=== PATIENT | female | born 1965 | race Caucasian/White ===

== ENCOUNTER 2021-05-22 16:07 | Emergency (ER) | payer BC, SELFPAY ==
[2021-05-22 16:12] VITALS: BP 184/93; PULSE 95; RESP 22; TEMP 37.4; O2SAT 95; BMI 35.9
--- NOTE | 2021-05-22 16:38 | W.ED.SOB ---
Documented by User: Sergei Nieto DO 05/26/21 06:05 HPI - SOB/Dyspnea General: Chief Complaint: Shortness of Breath/Dyspnea Stated Complaint: sob sent PCP Time Seen by Provider: 05/22/21 16:17 Source: patient Mode of arrival: ambulatory Limitations: no limitations History of Present Illness: HPI Narrative: 56-year-old female presents to the emergency room with complaints of shortness of breath and low-grade fever. Last month she had COVID she is currently on Eliquis. She relates she did have a PE related to the COVID. She is still continuing to take it regular has not missed any doses. She has a history of hepatitisCA and has recently developed increasing ascites. On arrival here her oxygen sats 95% on room air. She complaining difficulty breathing she in addition to taking the Eliquis she has been taking large doses of ibuprofen on a regular basis was told by her primary care doctor today not to do that. She denies any chest pain abdominal pain dysuria urgency or frequency. MD elicited complaint: shortness of breath Pertinent past history: other (Hepatitis C, ascites) Onset (ago): day(s) Context: recent illness (COVID) Timing: constant Severity: mild Exacerbating factors: lying flat and exertion Relieving factors: oxygen and rest Known history of: other (Hep C) Associated symptoms: Reports abdominal pain (Chronic) and fever(s); Deny chest congestion, chest pain, cough, diaphoresis, dizziness, extremity pain, hemoptysis, lightheadedness, myalgias, nausea, orthopnea, palpitations, paresthesias, polydipsia, polyuria, rash, sense of impending doom, syncope or vomiting Treatment prior to arrival: none Review of Systems Const: Reports: fever(s); Denies: diaphoresis ENMT: Denies: throat pain, ear or mastoid pain, nasal discharge or nasal congestion Card: Denies: chest pain, palpitations, lightheadedness, syncope or orthopnea Resp: Denies: hemoptysis or chest congestion GI: Reports: abdominal pain (Chronic); Denies: nausea or vomiting : Denies: flank pain, difficulty voiding, dysuria, urinary frequency or urinary urgency Musc: Denies: extremity pain Skin/Breast: Denies: rash or pruritus Neuro: Denies: dizziness Endo: Denies: polyuria or polydipsia PFSH ED PFSH: Medical History (Updated 05/26/21 @ 06:04 by Sergei Nieto DO) COVID-19 Hepatitis C Social History (Updated 05/26/21 @ 06:04 by Sergei Nieto DO) Smoking and tobacco status: current every day smoker Alcohol intake: former Physical Exam Const: GENERAL APPEARANCE: cooperative and comfortable ORIENTATION/CONSCIOUSNESS: Yes awake, Yes oriented to person, Yes oriented to place and Yes oriented to time HENMT: COMMON NORMALS: normocephalic, atraumatic and hearing grossly normal bilaterally HEAD & SCALP: normocephalic and atraumatic Neck/C-Spine: COMMON NORMALS: no JVD Resp: COMMON NORMALS: normal respiratory effort, No retractions, No use of accessory muscles and clear to auscultation bilaterally AUSCULTATION: clear to auscultation bilaterally Cardio: COMMON NORMALS: no JVD, regular rate, regular rhythm and No murmurs present (Cardio) RATE: regular rate RHYTHM: regular rhythm GI: COMMON NORMALS: Soft to palpation INSPECTION: Yes Fluid wave present AUSCULTATION: Yes normoactive bowel sounds PALPATION: Yes Soft to palpation and Yes Tenderness to palpation present (GI) (Mildly tender diffuse nonspecific) PERCUSSION: dullness to percussion and Fluid wave present Extremity: COMMON NORMALS: normal to inspection, capillary refill normal, no clubbing, cyanosis or edema, no calf tenderness and no pedal edema Neuro: SENSORIUM/ORIENTATION: Yes oriented to person, Yes oriented to place and Yes oriented to time Skin: COMMON NORMALS: no rashes or lesions noted GENERAL SKIN EXAM: no rashes or lesions noted Course Vital Signs: Vital signs: Vital Signs Temperature 99.3 F 05/22/21 16:12 Pulse Rate 96 05/22/21 19:36 Respiratory Rate 16 05/22/21 19:36 Blood Pressure 159/78 05/22/21 19:36 Pulse Oximetry 98 05/22/21 19:36 MDM - SOB/Dyspnea Medical Decision Making Care signed out to Dr. Gutiérrez at change of shift. See final notes for diagnosis and disposition. Patient presents here with dyspnea likely from her post COVID looks like she possibly has a pneumonia we will start her on antibiotics. Patient's also has some ascites we will set her up for a paracentesis she has no signs of SBP she is to follow-up with PCP and return if worsening. Lab Data : 05/22/21 18:24 05/22/21 18:24 Labs/Radiology: Radiology Impressions Abdomen Ultrasound 05/22/21 16:51 IMPRESSION: 1. Moderate fatty infiltration of the liver with findings in the liver suspicious for cirrhosis. 2. Small volume ascites with fluid around the liver. Chest X-Ray 05/22/21 16:51 IMPRESSION: 1. Diffuse interstitial and alveolar opacities bilaterally. Findings are suspicious for pneumonia, including atypical or viral pneumonia. Recommend followup chest x-ray to ensure resolution. 2. Incidental/nonacute findings are listed in the report. Forty-two Laboratory Results WBC 5.7 10^3/uL (4.0-10.0) 05/22/21 18:24 RBC 4.24 10^6/uL (4.1-5.3) 05/22/21 18:24 Hgb 11.9 g/dL (11.5-15.3) 05/22/21 18:24 Hct 37.5 % (37.0-47.0) 05/22/21 18:24 MCV 88.4 fl (81-99) 05/22/21 18:24 MCH 28.1 pg (28.0-34.0) 05/22/21 18:24 MCHC 31.7 g/dL (30.0-36.0) 05/22/21 18:24 RDW 16.2 % (12.1-15.1) H 05/22/21 18:24 Plt Count 89 10^3/cmm (130-400) L 05/22/21 18:24 MPV 12.9 fL (7.4-10.4) H 05/22/21 18:24 Neut % (Auto) 56.6 % 05/22/21 18:24 Lymph % (Auto) 27.1 % 05/22/21 18:24 O'Brien % (Auto) 8.5 % 05/22/21 18:24 Eos % (Auto) 6.2 % 05/22/21 18:24 Baso % (Auto) 1.1 % 05/22/21 18:24 Neut # (Auto) 3.22 10^3/uL (1.8-7.7) 05/22/21 18:24 Lymph # (Auto) 1.5 10^3/uL (0.8-4.8) 05/22/21 18:24 O'Brien # (Auto) 0.5 10^3/uL (0.2-0.9) 05/22/21 18:24 Eos # (Auto) 0.4 10^3/uL (0.0-0.8) 05/22/21 18:24 Baso # (Auto) 0.1 10^3/uL (0.0-0.1) 05/22/21 18:24 Nucleated RBC % (auto) 0 % 05/22/21 18:24 Nucleated RBCs # 0.0 /100WBC 05/22/21 18:24 PT 16.20 SECONDS (12.1-14.9) H 05/22/21 18:24 INR 1.27 (0.8-1.2) H 05/22/21 18:24 APTT 33.8 SECONDS (23.9-36.7) 05/22/21 18:24 Sodium 136 mmol/L (136-145) 05/22/21 18:24 Potassium 4.1 mmol/L (3.5-5.1) 05/22/21 18:24 Chloride 106 mmol/L (98-107) 05/22/21 18:24 Carbon Dioxide 24 mmol/L (22-29) 05/22/21 18:24 Anion Gap 10.1 (5-19) 05/22/21 18:24 BUN 8 mg/dL (6-20) 05/22/21 18:24 Creatinine 0.5 mg/dL (0.5-0.9) 05/22/21 18:24 GFR Calculation 128.6 mL/min (90-130) 05/22/21 18:24 Glucose 101 mg/dL (65-115) 05/22/21 18:24 Calculated Osmolality 280 mOsm/kg (285-295) L 05/22/21 18:24 Calcium 8.5 mg/dL (8.5-10.5) 05/22/21 18:24 Total Bilirubin 0.8 mg/dL (0.15-1.2) 05/22/21 18:24 AST 34 U/L (0-32) H 05/22/21 18:24 ALT 16 U/L (0-33) 05/22/21 18:24 Alkaline Phosphatase 241 IU/L (35-105) H 05/22/21 18:24 Ammonia 52 umol/L (11-51) H 05/22/21 18:24 Creatine Kinase 62 U/L (26-192) 05/22/21 18:24 Total Protein 7.7 g/dL (6.6-8.7) 05/22/21 18:24 Albumin 2.7 g/dL (3.5-5.2) L 05/22/21 18:24 Globulin 5.0 g/dL (1.3-4.6) H 05/22/21 18:24 Urine Color Yellow (Yellow) 05/22/21 19:24 Urine Appearance Clear (CLEAR) 05/22/21 19:24 Urine pH 7 (5-7) 05/22/21 19:24 Ur Specific Stuart 1.015 (1.005-1.030) 05/22/21 19:24 Urine Protein Neg (Negative) 05/22/21 19:24 Urine Glucose (UA) Norm (Normal) 05/22/21 19:24 Urine Ketones Negative (Negative) 05/22/21 19:24 Urine Blood 3+ (Negative) H 05/22/21 19:24 Urine Nitrate Negative (Negative) 05/22/21 19:24 Urine Bilirubin Neg (Negative) 05/22/21 19:24 Urine Urobilinogen 8 mg/dL (Negative) H 05/22/21 19:24 Ur Leukocyte Esterase 1+ (Negative) H 05/22/21 19:24 Urine RBC >100 /hpf (0-2) H 05/22/21 19:24 Urine WBC >100 /hpf (0-5) H 05/22/21 19:24 Ur Squamous Epith Cells 25-40 /hpf (0-5) H 05/22/21 19:24 Amorphous Sediment Not Reportable 05/22/21 19:24 Urine Bacteria 4+ /hpf (NONE) H 05/22/21 19:24 Discharge Plan Discharge Patient Disposition: Home Clinical Impression: Ascites, Pneumonia Hepatitis C Qualifiers: Viral hepatitis chronicity: chronic Hepatic coma status: without hepatic coma Qualified Code(s): B18.2 - Chronic viral hepatitis C Condition: Stable Prescriptions: New doxycycline hyclate 100 mg tablet 100 mg PO BID 7 Days Qty: 14 0RF No Action ibuprofen 200 mg Tablet 1,200 mg PO BEDTIME 0RF Eliquis 5 mg tablet 5 mg PO BID 0RF Discharge Orders: Discharge ED (Routine); Ordered 05/22/21 Ordered By: Dionne Gutiérrez Referrals: Estrella Gerard FNP [Primary Care Provider] - 1-3 days Discharge Diet: Advance as tolerated Discharge Activity: Resume usual activity Patient Instructions: Ascites (ED), Pneumonia (ED) Coding Level of Care Code ED Licensed Mental Health Professional for Chg Fwd Exam Comprehensive Documented by User: Dionne Gutiérrez MD 05/22/21 19:26 HPI - SOB/Dyspnea General: Chief Complaint: Shortness of Breath/Dyspnea Stated Complaint: sob sent PCP Time Seen by Provider: 05/22/21 16:17 [facility] ED PFSH: Medical History (Updated 05/26/21 @ 06:04 by Sergei Nieto DO) COVID-19 Hepatitis C Social History (Updated 05/26/21 @ 06:04 by Sergei Nieto DO) Smoking and tobacco status: current every day smoker Alcohol intake: former Course Vital Signs: Vital signs: Vital Signs Temperature 99.3 F 05/22/21 16:12 Pulse Rate 96 05/22/21 19:36 Respiratory Rate 16 05/22/21 19:36 Blood Pressure 159/78 05/22/21 19:36 Pulse Oximetry 98 05/22/21 19:36 MDM - SOB/Dyspnea Medical Decision Making Patient presents here with dyspnea likely from her post COVID looks like she possibly has a pneumonia we will start her on antibiotics. Patient's also has some ascites we will set her up for a paracentesis she has no signs of SBP she is to follow-up with PCP and return if worsening. Lab Data : 05/22/21 18:24 05/22/21 18:24 Labs/Radiology: Radiology Impressions Abdomen Ultrasound 05/22/21 16:51 IMPRESSION: 1. Moderate fatty infiltration of the liver with findings in the liver suspicious for cirrhosis. 2. Small volume ascites with fluid around the liver. Chest X-Ray 05/22/21 16:51 IMPRESSION: 1. Diffuse interstitial and alveolar opacities bilaterally. Findings are suspicious for pneumonia, including atypical or viral pneumonia. Recommend followup chest x-ray to ensure resolution. 2. Incidental/nonacute findings are listed in the report. Forty-two Laboratory Results WBC 5.7 10^3/uL (4.0-10.0) 05/22/21 18:24 RBC 4.24 10^6/uL (4.1-5.3) 05/22/21 18:24 Hgb 11.9 g/dL (11.5-15.3) 05/22/21 18:24 Hct 37.5 % (37.0-47.0) 05/22/21 18:24 MCV 88.4 fl (81-99) 05/22/21 18:24 MCH 28.1 pg (28.0-34.0) 05/22/21 18:24 MCHC 31.7 g/dL (30.0-36.0) 05/22/21 18:24 RDW 16.2 % (12.1-15.1) H 05/22/21 18:24 Plt Count 89 10^3/cmm (130-400) L 05/22/21 18:24 MPV 12.9 fL (7.4-10.4) H 05/22/21 18:24 Neut % (Auto) 56.6 % 05/22/21 18:24 Lymph % (Auto) 27.1 % 05/22/21 18:24 O'Brien % (Auto) 8.5 % 05/22/21 18:24 Eos % (Auto) 6.2 % 05/22/21 18:24 Baso % (Auto) 1.1 % 05/22/21 18:24 Neut # (Auto) 3.22 10^3/uL (1.8-7.7) 05/22/21 18:24 Lymph # (Auto) 1.5 10^3/uL (0.8-4.8) 05/22/21 18:24 O'Brien # (Auto) 0.5 10^3/uL (0.2-0.9) 05/22/21 18:24 Eos # (Auto) 0.4 10^3/uL (0.0-0.8) 05/22/21 18:24 Baso # (Auto) 0.1 10^3/uL (0.0-0.1) 05/22/21 18:24 Nucleated RBC % (auto) 0 % 05/22/21 18:24 Nucleated RBCs # 0.0 /100WBC 05/22/21 18:24 PT 16.20 SECONDS (12.1-14.9) H 05/22/21 18:24 INR 1.27 (0.8-1.2) H 05/22/21 18:24 APTT 33.8 SECONDS (23.9-36.7) 05/22/21 18:24 Sodium 136 mmol/L (136-145) 05/22/21 18:24 Potassium 4.1 mmol/L (3.5-5.1) 05/22/21 18:24 Chloride 106 mmol/L (98-107) 05/22/21 18:24 Carbon Dioxide 24 mmol/L (22-29) 05/22/21 18:24 Anion Gap 10.1 (5-19) 05/22/21 18:24 BUN 8 mg/dL (6-20) 05/22/21 18:24 Creatinine 0.5 mg/dL (0.5-0.9) 05/22/21 18:24 GFR Calculation 128.6 mL/min (90-130) 05/22/21 18:24 Glucose 101 mg/dL (65-115) 05/22/21 18:24 Calculated Osmolality 280 mOsm/kg (285-295) L 05/22/21 18:24 Calcium 8.5 mg/dL (8.5-10.5) 05/22/21 18:24 Total Bilirubin 0.8 mg/dL (0.15-1.2) 05/22/21 18:24 AST 34 U/L (0-32) H 05/22/21 18:24 ALT 16 U/L (0-33) 05/22/21 18:24 Alkaline Phosphatase 241 IU/L (35-105) H 05/22/21 18:24 Ammonia 52 umol/L (11-51) H 05/22/21 18:24 Creatine Kinase 62 U/L (26-192) 05/22/21 18:24 Total Protein 7.7 g/dL (6.6-8.7) 05/22/21 18:24 Albumin 2.7 g/dL (3.5-5.2) L 05/22/21 18:24 Globulin 5.0 g/dL (1.3-4.6) H 05/22/21 18:24 Urine Color Yellow (Yellow) 05/22/21 19:24 Urine Appearance Clear (CLEAR) 05/22/21 19:24 Urine pH 7 (5-7) 05/22/21 19:24 Ur Specific Stuart 1.015 (1.005-1.030) 05/22/21 19:24 Urine Protein Neg (Negative) 05/22/21 19:24 Urine Glucose (UA) Norm (Normal) 05/22/21 19:24 Urine Ketones Negative (Negative) 05/22/21 19:24 Urine Blood 3+ (Negative) H 05/22/21 19:24 Urine Nitrate Negative (Negative) 05/22/21 19:24 Urine Bilirubin Neg (Negative) 05/22/21 19:24 Urine Urobilinogen 8 mg/dL (Negative) H 05/22/21 19:24 Ur Leukocyte Esterase 1+ (Negative) H 05/22/21 19:24 Urine RBC >100 /hpf (0-2) H 05/22/21 19:24 Urine WBC >100 /hpf (0-5) H 05/22/21 19:24 Ur Squamous Epith Cells 25-40 /hpf (0-5) H 05/22/21 19:24 Amorphous Sediment Not Reportable 05/22/21 19:24 Urine Bacteria 4+ /hpf (NONE) H 05/22/21 19:24 Discharge Plan Discharge Patient Disposition: Home Clinical Impression: Ascites, Pneumonia Hepatitis C Qualifiers: Viral hepatitis chronicity: chronic Hepatic coma status: without hepatic coma Qualified Code(s): B18.2 - Chronic viral hepatitis C Condition: Stable Prescriptions: New doxycycline hyclate 100 mg tablet 100 mg PO BID 7 Days Qty: 14 0RF No Action ibuprofen 200 mg Tablet 1,200 mg PO BEDTIME 0RF Eliquis 5 mg tablet 5 mg PO BID 0RF Discharge Orders: Discharge ED (Routine); Ordered 05/22/21 Ordered By: Dionne Gutiérrez Referrals: Estrella Gerard FNP [Primary Care Provider] - 1-3 days Discharge Diet: Advance as tolerated Discharge Activity: Resume usual activity Patient Instructions: Ascites (ED), Pneumonia (ED) Coding Level of Care Code ED Licensed Mental Health Professional for Vera Fwd Exam Comprehensive
--- NOTE | 2021-05-22 16:51 | USR_ITS ---
PROCEDURE INFORMATION: Exam: US Abdomen; Limited Exam date and time: 05/22/2021 4:51 PM Age: 56 years old Clinical indication: Abdominal tenderness; Additional info: Liver/ascites TECHNIQUE: Imaging protocol: US abdomen. Real time ultrasound with image documentation. Limited exam focused on the region of clinical interest. COMPARISON: No relevant prior studies available. FINDINGS: Liver: Nodular contour of the liver. Moderately increased echotexture in the liver, consistent with moderate fatty infiltration. Liver measures 14.3 cm in length. Portal venous: Hepatopetal flow in the portal vein. Intraperitoneal space: Small volume ascites with fluid around the liver. There is no ascites visualized in the remainder of the abdomen. US/US abdomen limited [id number] IMPRESSION: 1. Moderate fatty infiltration of the liver with findings in the liver suspicious for cirrhosis. 2. Small volume ascites with fluid around the liver.
--- NOTE | 2021-05-22 16:51 | ECG_ITS ---
[facility] Test Date: 2021-05-22 Pat Name: Sandy Enrandez Department: Room: Gender: Female Customer Service Manager: : 1965 Requested By: Sergei Dorsey Order Number: [id number] Dano MD: Felix King M.D. Measurements Intervals [place] Rate: 90 P: 54 KS: 152 QRS: 22 QRSD: 73 T: 38 QT: 342 QTc: 420 Interpretive Statements SINUS RHYTHM No previous ECG available for comparison Electronically Signed On 05-22-2021 20:45:39 CUSTOMER RESOURCE SPECIALIST by Felix King M.D. [id number]
--- NOTE | 2021-05-22 16:51 | XRR_ITS ---
PROCEDURE INFORMATION: Exam: XR Chest Exam date and time: 05/22/2021 4:51 PM Age: 56 years old Clinical indication: Cough and shortness of breath; Additional info: Dyspnea/cough TECHNIQUE: Imaging protocol: XR of the chest. Views: 1 view. COMPARISON: No relevant prior studies available. FINDINGS: Lungs: Diffuse interstitial and alveolar opacities bilaterally. Findings are suspicious for pneumonia, including atypical or viral pneumonia. Pleural spaces: No pleural effusion. No pneumothorax. Heart/Mediastinum: The cardiac silhouette is mildly enlarged. Mediastinal contours are unremarkable. Bones/joints: Unremarkable for age. XR/XR chest 1V portable [id number] IMPRESSION: 1. Diffuse interstitial and alveolar opacities bilaterally. Findings are suspicious for pneumonia, including atypical or viral pneumonia. Recommend followup chest x-ray to ensure resolution. 2. Incidental/nonacute findings are listed in the report. Forty-two
[2021-05-22 18:44] LABS: INR 1.27 (0.8-1.2); Partial Thromboplastin Time 33.8 SECONDS (23.9-36.7)
[2021-05-22 19:04] VITALS: BP 159/84; PULSE 91; RESP 18; O2SAT 92
[2021-05-22 19:04] LABS: Alanine Aminotransferase 16 U/L (0-33); Albumin Level 2.7 g/dL (3.5-5.2); Alkaline Phosphatase 241 IU/L (35-105); Aspartate Amino Transferase 34 U/L (0-32); Blood Urea Nitrogen 8 mg/dL (6-20); Calcium 8.5 mg/dL (8.5-10.5); Carbon Dioxide 24 mmol/L (22-29); Chloride 106 mmol/L (98-107); Creatine Phosphokinase 62 U/L (26-192); Creatinine Clr Calc Pharmacy 149.0233; Glomerular Filtration Rate 128.6 mL/min (90-130); Glucose 101 mg/dL (65-115); Osmolality Calculated 280 mOsm/kg (285-295); Sodium 136 mmol/L (136-145); Total Bilirubin 0.8 mg/dL (0.15-1.2); Total Protein 7.7 g/dL (6.6-8.7)
[2021-05-22 19:06] LABS: Ammonia 52 umol/L (11-51)
[2021-05-22 19:09] LABS: Anion Gap 10.1 (5-19); Potassium 4.1 mmol/L (3.5-5.1)
[2021-05-22 19:13] LABS: Basophils # 0.1 10^3/uL (0.0-0.1); Basophils % 1.1 %; Eosinophils # 0.4 10^3/uL (0.0-0.8); Eosinophils % 6.2 %; Hematocrit 37.5 % (37.0-47.0); Hemoglobin 11.9 g/dL (11.5-15.3); Lymphocytes # 1.5 10^3/uL (0.8-4.8); Lymphocytes % 27.1 %; Mean Corpuscular HGB Conc 31.7 g/dL (30.0-36.0); Mean Corpuscular Hemoglobin 28.1 pg (28.0-34.0); Mean Corpuscular Volume 88.4 fl (81-99); Mean Platelet Volume 12.9 fL (7.4-10.4); Monocytes # 0.5 10^3/uL (0.2-0.9); Monocytes % 8.5 %; Neutrophils # 3.22 10^3/uL (1.8-7.7); Neutrophils % 56.6 %; Nucleated Red Blood Cells % 0 %; Platelet Count 89 10^3/cmm (130-400); Red Blood Count 4.24 10^6/uL (4.1-5.3); Red Cell Distribution Width 16.2 % (12.1-15.1); White Blood Count 5.7 10^3/uL (4.0-10.0)
[2021-05-22 19:36] VITALS: BP 159/78; PULSE 96; RESP 16; O2SAT 98
[2021-05-22 20:20] LABS: Glucose Urine UA Norm (Normal); Ketones Urine Negative (Negative); Protein Urine Neg (Negative); Specific Gravity, Urine 1.015 (1.005-1.030); Urine Appearance Clear (CLEAR); Urine Color Yellow (Yellow); pH Urine 7 (5-7)
[2021-05-22 20:21] LABS: Add Urine Microscopic? YES; Bilirubin Urine Neg (Negative); Blood Urine 3+ (Negative); Leukocyte Esterase Urine 1+ (Negative); Nitrate Urine Negative (Negative); Urobilinogen Urine 8 mg/dL (Negative)
[2021-05-22 20:28] LABS: Add Urine Culture? No; Bacteria Urine 4+ /hpf; RBC Urine >100 /hpf (0-2); Squamous Epithelial Cell Urine 25-40 /hpf (0-5); WBC Urine >100 /hpf (0-5)
--- NOTE | 2021-05-23 12:49 | DCPLANNER ---
Addendum entered by Tali Estrada 05/30/21 13:52: Patient had an US guided paracentesis scheduled for 05.28.21 - patient did attend appointment. Original Note: manager case management had message to schedule an outpatient US guided paracentesis. manager case management faxed signed order to centralized scheduling, who will call patient with appointment information.
== END 2021-05-22 19:39 | disposition home or self-care (01) ==
PROVIDERS: Family Medicine; Emergency Provider Emergency Medicine; PCP Nurse Practitioner Family
DX: B18.2 Chronic viral hepatitis C (principal); R18.8 Other ascites; J18.9 Pneumonia, unspecified organism; Z79.01 Long term (current) use of anticoagulants; F17.210 Nicotine dependence, cigarettes, uncomplicated
CPT/HCPCS: 71045; 76705; 80053; 81001; 82140; 82550; 85025; 85610; 85730; 87040; 93005; 99283

== ENCOUNTER 2021-05-28 10:10 | Day surgery (SDC) | payer OTHER, BC, MEDICAID, SELFPAY ==
[2021-05-27 10:30] VITALS: BMI 37.5
--- NOTE | 2021-05-28 10:41 | US_ITS ---
WS: [id number] ULTRASOUND ABDOMEN LIMITED CLINICAL INFORMATION: ascites COMPARISON: May 22, 2021 FINDINGS: Ascites: Mild abdominal ascites today. Insufficient fluid for paracentesis. US/US abdomen limited [id number] IMPRESSION: Insufficient fluid for paracentesis.
[2021-05-28 10:45] VITALS: BP 145/81; PULSE 89; RESP 20; TEMP 37; O2SAT 92
== END 2021-05-28 12:00 | disposition home or self-care (01) ==
PROVIDERS: Radiology Neuroradiology; PCP Nurse Practitioner Family; Visit Provider Emergency Medicine
DX: R18.8 Other ascites (principal)
CPT/HCPCS: 76705

== ENCOUNTER 2022-05-29 11:47 | Emergency (ER) | payer BC, MEDICAID, SELFPAY ==
[2022-05-29 11:54] VITALS: BMI 31.6
[2022-05-29 11:59] VITALS: BP 145/78; PULSE 71; RESP 18; TEMP 36.5; O2SAT 94
--- NOTE | 2022-05-29 14:59 | ED_ITS ---
HPI - General Adult General: Chief complaint: General Medical Stated complaint: face and leg swelling Time Seen by Provider: 05/29/22 13:56 History of Present Illness: Ms Ernandez is a 57-year-old lady with history of recurrent cellulitis, hepatitis C presenting to the emergency department due to concern over facial cellulitis. She reports chronic leg cellulitis of the right lower extremity most recently started on Keflex. Starting last night she noticed a small abrasion or purple on the left side of her face which she picked at. Subsequently she developed facial swelling and redness. She notes blurry vision and pain behind the left eye. Intensity symptoms is moderate. Course has worsened. No other specific changes in health, exacerbating, or alleviating factors identified. Onset (ago): day(s) Location: face Severity: moderate Quality: other Pain Consistency: constant Relieving factors: none Exacerbating factors: none Associated symptoms: Reports headache(s), malaise and other Review of Systems General: Reports: 10 or more systems reviewed and unremarkable except in HPI and below Const: Reports: malaise Neuro: Reports: headache(s) PFSH ED PFSH: Medical History COVID-19 Hepatitis C Family History Mother Hypertension Family/Other Hypertension Denies family history of Diabetes CAD (coronary artery disease) Cancer Social History Smoking and tobacco status: never smoked Alcohol intake: former Adopted: No Lives independently: Yes Household members: family Housing: House Physical Exam Const: COMMON NORMALS: alert GENERAL APPEARANCE: cooperative and well dev eloped HENMT: COMMON NORMALS: normocephalic and atraumatic HEAD & SCALP: normocephalic and atraumatic THROAT: posterior oropharynx normal OTHER: Facial cellulitis Eye: COMMON NORMALS: Equal, round and reactive pupils present, EOMs intact bilaterally, conjunctivae normal and normal visual mina by confrontation CONJUNCTIVA: Yes conjunctivae normal SCLERA: sclerae normal PUPIL: Yes Equal, round and reactive pupils present Neck/C-Spine: COMMON NORMALS: supple GENERAL: Yes trachea midline Resp: COMMON NORMALS: normal respiratory effort EFFORT & INSPECTION: Yes able to speak in complete sentences Cardio: COMMON NORMALS: regular rate and regular rhythm RATE: regular rate RHYTHM: regular rhythm GI: COMMON NORMALS: Soft to palpation PALPATION: Yes Soft to palpation and No Tenderness to palpation present (GI) PERCUSSION: normal to percussion Extremity: NARRATIVE EXTREMITY EXAM: Bilateral lower extremities with woody vascular changes, mildly increased swell ing on the right compared to left, deep skin ulceration/wound GENERAL: Yes normal exam except as noted and No edema Neuro: COMMON NORMALS: moves all extremities SENSORIUM/ORIENTATION: Yes alert and No Orientation impaired Psych: COMMON NORMALS: mental status grossly normal and Normal thought process present THOUGHT PROCESS: Normal thought process present Course Vital Signs: Vital signs: Vital Signs Temperature 97.7 F 05/29/22 11:59 Pulse Rate 71 05/29/22 11:59 Respiratory Rate 18 05/29/22 11:59 Blood Pressure 145/78 05/29/22 11:59 Pulse Oximetry 94 05/29/22 11:59 Oxygen Delivery Me thod 05/29/22 11:59 [facility] - General Adult Medical Decision Making 57-year-old lady presenting with concern over facial cellulitis. She had is chronic and treated with Keflex for leg cellulitis despite recurrence. Bilateral nose and inferior periorbital regions with mild extension to chin more prominent on the left. No evidence of airway compromise. No vesicular or desquamating lesions. Labs with no significant hematologic or metabolic abnormalities compared to underlying medical conditions. ESR is mildly elevated and states CRP. Incidental lab findings discussed. CT imaging negative for drainable fluid collection or deep tissue infection. Incidental findings noted, no increasing respiratory symptoms. Given nonhealin g/recurrent wounds ultrasound imaging obtained. No stenosis or occlusion, no DVT, x-ray unremarkable for bony abnormality. Most likely etiology of patient's symptoms is cellulitis. Given laboratory and exam findings I believe outpatient management with change in antibiotics is appropriate. Strict return precautions given. The results of ED evaluation were discussed with the patient including prescriptions and/or symptomatic cares (if applicable) including appropriate and responsible use, followup plan, and return precautions. The patient verbalized understanding and felt safe for discharge. Medical Records I reviewed the patient's medical records. Lab Data I reviewed the patient's lab results. 05/29/22 16:37 05/29/22 15:[address] 05/29/22 15:00 IMPRESSION: Soft tissue swelling in the bilateral nose and inferior periorbital regions extending to the pre maxillary region, with minimal extension to the chin. This is consistent with history of cellulitis. No drainable abscess or fluid collection. Neck CT 05/29/22 15:00 IMPRESSION: 1. Soft tissue swelling of the nose, bilateral inferior periorbital and pre maxillary regions, and minimal soft tissue swelling extending inferiorly in the left neck. These changes suggest cellulitis. No drainable abscess or fluid collection. 2. Minimally prominent upper cervical chain lymph nodes are likely reactive. 3. Patchy ground-glass densities in the lung apices. Correlate for pneumonia versus pulmonary vascular congestion. Duplex Scan Lower Extremity Artery 05/29/22 17:24 IMPRESSION: No stenosis or occlusion. Tibia/Fibula X-Ray 05/29/22 17:24 IMPRESSION: Diffuse right lower extremity subcutaneous soft tissue edema. No acute osseous injury. ADDENDUM: 05/29/22 [id number] Addendum: Additionally there appears to be a soft tissue ulcer measuring 1.9 cm anteriorly in the right lower leg. Correlate with exam findings. Venous Duplex 05/29/22 17:24 IMPRESSION: No evidence of deep vein thrombosis. Laboratory Results WBC 5.5 10^3/uL (4.0-10.0) 05/29/22 16:37 RBC 4.34 10^6/uL (4.1-5.3) 05/29/22 16:37 Hgb 12.2 g/dL (11.5-15.3) 05/29/22 16:37 Hct 38.7 % (37.0-47.0) 05/29/22 16:37 MCV 89.2 fl (81-99) 05/29/22 16:37 MCH 28.1 pg (28.0-34.0) 05/29/22 16:37 MCHC 31.5 g/dL (30.0-36.0) 05/29/22 16:37 RDW 14.6 % (12.1-15.1) 05/29/22 16:37 Plt Count 113 10^3/cmm (130-400) L 05/29/22 16:37 MPV 12.3 fL (7.4-10.4) H 05/29/22 16:37 Neut % (Auto) 75.1 % 05/29/22 16:37 Lymph % (Auto) 14.6 % 05/29/22 16:37 Vernon % (Auto) 7.9 % 05/29/22 16:37 Eos % (Auto) 1.6 % 05/29/22 16:37 Baso % (Auto) 0.4 % 05/29/22 16:37 Neut # (Auto) 4.11 10^3/uL (1.8-7.7) 05/29/22 16:37 Lymph # (Auto) 0.8 10^3/uL (0.8-4.8) 05/29/22 16:37 Vernon # (Auto) 0.4 10^3/uL (0.2-0.9) 05/29/22 16:37 Eos # (Auto) 0.1 10^3/uL (0.0-0.8) 05/29/22 16:37 Baso # (Auto) 0.0 10^3/uL (0.0-0.1) 05/29/22 16:37 Nucleated RBC % (auto) 0 % 05/29/22 16:37 Nucleated RBCs # 0.0 /100WBC 05/29/22 16:37 ESR 18 mm/hr (0-15) H 05/29/22 16:37 Sodium 136 mmol/L (136-145) 05/29/22 15:16 Potassium 3.7 mmol/L (3.5-5.1) 05/29/22 15:16 Chloride 105 mmol/L (98-107) 05/29/22 15:16 Carbon Dioxide 24 mmol/L (22-29) 05/29/22 15:16 Anion Gap 10.7 (5-19) 05/29/22 15:16 BUN 9 mg/dL (6-20) 05/29/22 15:16 Creatinine 0.5 mg/dL (0.5-0.9) 05/29/22 15:16 GFR Calculation 128.1 mL/min (90-130) 05/29/22 15:16 Glucose 107 mg/dL (65-115) 05/29/22 15:16 Calculated Osmolality 281 mOsm/kg (285-295) L 05/29/22 15:16 Lactate 1.0 mmol/L (0.5-2.2) 05/29/22 16:45 Calcium 8.7 mg/dL (8.5-10.5) 05/29/22 15:16 Total Bilirubin 1.6 mg/dL (0.15-1.2) H 05/29/22 15:16 AST 103 U/L (0-32) H 05/29/22 15:16 ALT 60 U/L (0-33) H 05/29/22 15:16 Alkaline Phosphatase 163 U/L (35-105) H 05/29/22 15:16 C-Reactive Protein 9.5 mg/L (0.0-4.9) H 05/29/22 15:16 Total Protein 6.7 g/dL (6.6-8.7) 05/29/22 15:16 Albumin 2.4 g/dL (3.5-5.2) L 05/29/22 15:16 Globulin 4.3 g/dL (1.3-4.6) 05/29/22 15:16 Discharge Plan Discharge Patient Disposition: Home Clinical Impression: Cellulitis of leg, right, Cellulitis of face, Abnormal bilirubin test, Thrombocytopenia, Transaminitis Condition: Stable Prescriptions: No Action omeprazole 40 mg capsule,delayed release(DR/EC) 40 mg PO DAILY Qty: 30 0RF albuterol sulfate [Ventolin HFA] 90 mcg/actuation HFA aerosol inhaler 2 puff inhalation Q6H PRN budesonide-formoterol [Symbicort] 80-4.5 mcg/actuation HFA aerosol inhaler 1 inh inhalation BID guaifenesin [Mucinex] 600 mg tablet extended release 12hr 600 mg PO BID Rx Instructions: for 5 dyas cephalexin 500 mg capsule 500 mg PO Q8H 7 Days Qty: 21 0RF Eliquis 5 mg tablet 5 mg PO BID Discharge Orders: Discharge ED (Routine); Ordered 05/29/22 Ordered By: Steven Marcano Referrals: Estrella Gerard FNP [Primary Care Provider] - Discharge Diet: Usual diet Discharge Activity: Resume usual activity Patient Instructions: Cellulitis (ED) Activity Restrictions/Additional Instructions: Thank you for visiting the emergency department. You were seen and evaluated for facial and leg redness and pain as well as swelling. The most likely cause of your symptoms is cellulitis. Based on laboratory studies I believe that it is reasonable to increase antibiotics and treat in the outpatient setting. I recommend close follow-up with your primary care provider. Establish with a primary care provider if you do not currently have one. Return to the emergency department for worsening symptoms, uncontrolled pain, difficulty breathing, involvement of mucous membranes, failure to improve, or anything else that you are concerned about and feel needs emergency department evaluation. Coding Level of Care Code ED [employer] for [facility]
--- NOTE | 2022-05-29 15:00 | CTR_ITS ---
PROCEDURE INFORMATION: Exam: CT Neck With Contrast Exam date and time: 05/29/2022 4:48 PM Age: 57 years old Clinical indication: Cellulitis of neck; Additional info: Cellulitis, neck pain, eval deep infection TECHNIQUE: Imaging protocol: Computed tomography of the neck with contrast. Radiation optimization: All CT scans at this facility use at least one of these dose optimization techniques: automated exposure control; mA and/or kV adjustment per patient size (includes targeted exams where dose is matched to clinical indication); or iterative reconstruction. Contrast material: OMNIPAQUE 350; Contrast volume: 65 ml; Contrast route: INTRAVENOUS (IV); REPORTING DATA: Count of CT and Cardiac NM exams in prior 12 months: This patient has received [address] and 0 known cardiac nuclear medicine studies in the 12 months prior to the current study. COMPARISON: CR (CHEST, ) 05/22/2021 4:56 PM RADIATION DOSE METRICS: Total DLP (mGy-cm): 267.4 FINDINGS: Mastoid air cells: Small left mastoid effusion. Pharynx: Unremarkable. No significant tonsillar enlargement. Larynx: Unremarkable. Epiglottis is normal. Prevertebral and retropharyngeal spaces: Unremarkable. Salivary glands: Normal. Glands are normal in size. Thyroid: Normal. No enlarged or calcified nodules. Lymph nodes: Mildly enlarged upper cervical chain nodes are present which are likely reactive. For example there is a left level 1 lymph node measuring 8 mm short axis on series 4, image 56. Trachea: Visualized trachea is unremarkable. Lungs: Patchy ground-glass densities in the lung apices. Bones/joints: The maxilla is edentulous. There is dental disease in the mandible. Soft tissues: Soft tissue swelling is seen in the nose, inferior periorbital region, and the bilateral pre maxillary region. There is also soft tissue swelling in the region of the chin with minimal thickening of the bilateral platysma muscle. Minimal subcutaneous soft tissue stranding extends inferiorly in the left neck to the level of the thyroid cartilage and extends to the carotid sheath. No drainable abscess or fluid collection. CT/CT neck w con* [id number] IMPRESSION: 1. Soft tissue swelling of the nose, bilateral inferior periorbital and pre maxillary regions, and minimal soft tissue swelling extending inferiorly in the left neck. These changes suggest cellulitis. No drainable abscess or fluid collection. 2. Minimally prominent upper cervical chain lymph nodes are likely reactive. 3. Patchy ground-glass densities in the lung apices. Correlate for pneumonia versus pulmonary vascular congestion.
--- NOTE | 2022-05-29 15:00 | CTR_ITS ---
PROCEDURE INFORMATION: Exam: CT Maxillofacial With Contrast Exam date and time: 05/29/2022 4:48 PM Age: 57 years old Clinical indication: Other: Facial swelling and reddness; Additional info: Facial cellulitis, eval deep infection, eye pain l>r, nasal bridge and inferior eye region TECHNIQUE: Imaging protocol: Computed tomography of the face with contrast. Radiation optimization: All CT scans at this facility use at least one of these dose optimization techniques: automated exposure control; mA and/or kV adjustment per patient size (includes targeted exams where dose is matched to clinical indication); or iterative reconstruction. Contrast material: OMNI 350; Contrast volume: 45 ml; Contrast route: INTRAVENOUS (IV); REPORTING DATA: Count of CT and Cardiac NM exams in prior 12 months: This patient has received [address] and 0 known cardiac nuclear medicine studies in the 12 months prior to the current study. COMPARISON: CT neck w con* [id number] 05/29/2022 4:48 PM RADIATION DOSE METRICS: Total DLP (mGy-cm): 605.9 FINDINGS: Orbital cavities: Orbits are normal. Globes are unremarkable. Bones/joints: No acute fracture. Paranasal sinuses: Normal. No air-fluid levels. Mastoid air cells: Small left mastoid tip effusion. Lymph nodes: Minimally prominent upper cervical chain lymph nodes are likely reactive similar to the comparison CT neck. Soft tissues: Bilateral nasal inferior periorbital and pre maxillary region soft tissue swelling is again visualized. There is minimal soft tissue swelling in the chin with minimally thickened bilateral platysma muscle. No evidence of a drainable abscess or fluid collection. Dental: Dental disease is present in the mandible with edentulous maxilla. CT/CT facial bones w con [id number] IMPRESSION: Soft tissue swelling in the bilateral nose and inferior periorbital regions extending to the pre maxillary region, with minimal extension to the chin. This is consistent with history of cellulitis. No drainable abscess or fluid collection.
[2022-05-29 15:55] LABS: Alanine Aminotransferase 60 U/L (0-33); Albumin Level 2.4 g/dL (3.5-5.2); Alkaline Phosphatase 163 U/L (35-105); Aspartate Amino Transferase 103 U/L (0-32); Blood Urea Nitrogen 9 mg/dL (6-20); C Reactive Protein 9.5 mg/L (0.0-4.9); Calcium 8.7 mg/dL (8.5-10.5); Carbon Dioxide 24 mmol/L (22-29); Chloride 105 mmol/L (98-107); Globulin 4.3 g/dL (1.3-4.6); Glomerular Filtration Rate 128.1 mL/min (90-130); Glucose 107 mg/dL (65-115); Osmolality Calculated 281 mOsm/kg (285-295); Sodium 136 mmol/L (136-145); Total Bilirubin 1.6 mg/dL (0.15-1.2); Total Protein 6.7 g/dL (6.6-8.7)
[2022-05-29 15:59] LABS: Anion Gap 10.7 (5-19); Potassium 3.7 mmol/L (3.5-5.1)
[2022-05-29] MEDS: iohexol 350 mg/mL 500 mL Btl (per mL) IV (16:00)
[2022-05-29 16:48] LABS: Basophils % 0.4 %; Eosinophils # 0.1 10^3/uL (0.0-0.8); Eosinophils % 1.6 %; Hematocrit 38.7 % (37.0-47.0); Hemoglobin 12.2 g/dL (11.5-15.3); Lymphocytes # 0.8 10^3/uL (0.8-4.8); Lymphocytes % 14.6 %; Mean Corpuscular HGB Conc 31.5 g/dL (30.0-36.0); Mean Corpuscular Hemoglobin 28.1 pg (28.0-34.0); Mean Corpuscular Volume 89.2 fl (81-99); Mean Platelet Volume 12.3 fL (7.4-10.4); Monocytes # 0.4 10^3/uL (0.2-0.9); Monocytes % 7.9 %; Neutrophils # 4.11 10^3/uL (1.8-7.7); Neutrophils % 75.1 %; Nucleated Red Blood Cells % 0 %; Platelet Count 113 10^3/cmm (130-400); Red Blood Count 4.34 10^6/uL (4.1-5.3); Red Cell Distribution Width 14.6 % (12.1-15.1); White Blood Count 5.5 10^3/uL (4.0-10.0)
[2022-05-29 17:11] LABS: Erythrocyte Sedimentation Rate 18 mm/hr (0-15)
--- NOTE | 2022-05-29 17:24 | USR_ITS ---
PROCEDURE INFORMATION: Exam: US Duplex Right Lower Extremity Veins, Limited Exam date and time: 05/29/2022 5:39 PM Age: 57 years old Clinical indication: Edema, localized; Lower extremity, right; Additional info: Lle pain, swelling TECHNIQUE: Imaging protocol: Real-time duplex ultrasound of the right extremity with 2-D nuno scale, color Doppler flow and spectral waveform analysis including responses to compression and other maneuvers (when performed) with image documentation. Limited exam was focused on the right lower extremity veins. COMPARISON: CR XR tibia fibula RT 2V [id number] 05/29/2022 5:35 PM FINDINGS: Right deep veins: Unremarkable. The common femoral, femoral, proximal profunda femoral and popliteal veins are patent without thrombus. Normal Doppler waveforms. Normal compressibility and/or augmentation response. Right superficial veins: Unremarkable. Saphenofemoral junction is patent without thrombus. Soft tissues: Subcutaneous soft tissue edema noted. US/[place] [id number] IMPRESSION: No evidence of deep vein thrombosis.
--- NOTE | 2022-05-29 17:24 | USR_ITS ---
PROCEDURE INFORMATION: Exam: US Duplex Right Lower Extremity Arteries Or Arterial Bypass Grafts Exam date and time: 05/29/2022 5:47 PM Age: 57 years old Clinical indication: Pain; Leg, lower; Right; Additional info: Non healing wound, swelling, pain TECHNIQUE: Imaging protocol: Right Real-time duplex scan of the arteries or arterial bypass grafts of the right lower extremity with 2-D nuno scale, color Doppler flow and spectral waveform analysis. Images documented and saved. COMPARISON: [place] [id number] 05/29/2022 5:39 PM FINDINGS: Right common femoral artery: No occlusion or significant stenosis. Normal waveform. No pseudoaneurysm in the inguinal region. Right superficial femoral artery: No occlusion or significant stenosis. Normal waveform. Right popliteal artery: No occlusion or significant stenosis. Normal waveform. Right calf/foot arteries: No occlusion or significant stenosis in the visualized arteries. Normal waveforms. Dorsalis pedis artery is patent. Hyperemia is present in the distal right lower extremity runoff vessels. Soft tissues: No hematoma or collection. Distal right lower extremity subcutaneous soft tissue edema noted. US/[place] [id number] IMPRESSION: No stenosis or occlusion.
--- NOTE | 2022-05-29 17:24 | XRR_ITS ---
PROCEDURE INFORMATION: Exam: XR Right Tibia and Fibula Exam date and time: 05/29/2022 5:35 PM Age: 57 years old Clinical indication: Pain; Lower leg; Right; Additional info: Wound, swelling, distal leg wound TECHNIQUE: Imaging protocol: Radiologic exam of the right tibia and fibula. Views: 2 views. COMPARISON: No relevant prior studies available. FINDINGS: Bones/joints: Normal. Soft tissues: Subcutaneous soft tissue edema seen in the right lower extremity diffusely. No soft tissue gas. XR/XR tibia fibula RT 2V [id number] IMPRESSION: Diffuse right lower extremity subcutaneous soft tissue edema. No acute osseous injury.
[2022-05-29] MEDS: clindamycin 600 MG/50 ML PREMIX 100 MG IV (18:25)
== END 2022-05-29 18:53 | disposition home or self-care (01) ==
PROVIDERS: Emergency Provider Emergency Medicine; PCP Nurse Practitioner Family
DX: L03.211 Cellulitis of face (principal); L03.115 Cellulitis of right lower limb; R79.89 Other specified abnormal findings of blood chemistry; D69.6 Thrombocytopenia, unspecified; R74.01 Elevation of levels of liver transaminase levels; Z79.01 Long term (current) use of anticoagulants; Z86.19 Personal history of other infectious and parasitic diseases
CPT/HCPCS: 36415; 70487; 70491; 73590; 80053; 83605; 85025; 85651; 86140; 87040; 93926; 93971; 96374; 99285; J3490; Q9967

== ENCOUNTER 2022-08-28 19:19 | Emergency (ER) | payer BC, MEDICAID, SELFPAY ==
[2022-08-28 19:30] VITALS: PULSE 104; RESP 18; TEMP 37.2; O2SAT 99; BMI 31.6
[2022-08-28 20:12] LABS: Basophils # 0.1 10^3/uL (0.0-0.1); Basophils % 0.9 %; Eosinophils # 0.1 10^3/uL (0.0-0.8); Eosinophils % 1.8 %; Hematocrit 38.9 % (37.0-47.0); Hemoglobin 12.1 g/dL (11.5-15.3); Lymphocytes # 1.3 10^3/uL (0.8-4.8); Lymphocytes % 23.4 %; Mean Corpuscular HGB Conc 31.1 g/dL (30.0-36.0); Mean Corpuscular Hemoglobin 27.8 pg (28.0-34.0); Mean Corpuscular Volume 89.4 fl (81-99); Mean Platelet Volume 12.2 fL (7.4-10.4); Monocytes # 0.7 10^3/uL (0.2-0.9); Monocytes % 12.3 %; Neutrophils # 3.39 10^3/uL (1.8-7.7); Neutrophils % 61.4 %; Nucleated Red Blood Cells % 0 %; Platelet Count 105 10^3/cmm (130-400); Red Blood Count 4.35 10^6/uL (4.1-5.3); Red Cell Distribution Width 13.5 % (12.1-15.1); White Blood Count 5.5 10^3/uL (4.0-10.0)
[2022-08-28 20:38] LABS: Alanine Aminotransferase 94 U/L (0-33); Albumin Level 2.9 g/dL (3.5-5.2); Alkaline Phosphatase 165 U/L (35-105); Anion Gap 11.7 (5-19); Aspartate Amino Transferase 134 U/L (0-32); Blood Urea Nitrogen 9 mg/dL (6-20); Calcium 8.2 mg/dL (8.5-10.5); Carbon Dioxide 27 mmol/L (22-29); Chloride 100 mmol/L (98-107); Globulin 4.3 g/dL (1.3-4.6); Glomerular Filtration Rate 128.1 mL/min (90-130); Glucose 85 mg/dL (65-115); NT Pro B Type Natriuretic Pept 253 pg/mL (0-125); Osmolality Calculated 278 mOsm/kg (285-295); Potassium 3.7 mmol/L (3.5-5.1); Sodium 135 mmol/L (136-145); Total Bilirubin 1.9 mg/dL (0.15-1.2); Total Protein 7.2 g/dL (6.6-8.7)
--- NOTE | 2022-08-28 21:16 | PC.NURSE ---
REPORT GIVEN TO [facility].
--- NOTE | 2022-08-28 21:42 | W.ED.EXTPRO ---
HPI - Extremity Problem General: Chief complaint: Extremity Problem,Nontraumatic Stated complaint: bilateral swelling, infection, weeping Time Seen by Provider: 08/28/22 21:01 Source: patient Mode of arrival: ambulatory Limitations: no limitations History of Present Illness: This 57-year-old female with a history of hepatitis C, COVID-19 infection and chronic leg swelling and pain presents to the ER with worsening pain tonight. 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 This prompted her to come to the ER for evaluation. She has no fever, chest pain, shortness of breath, nausea, vomiting or any other systemic symptoms. She was recently treated with clindamycin for cellulitis in those lower extremities. She appears clinically stable. Associated symptoms: Deny chest pain Review of Systems Const: Denies: chills, body aches or change in appetite Eyes: Denies: change in vision or eye discharge ENMT: Denies: throat pain, dental pain or nasal discharge Card: Denies: chest pain or lightheadedness : Denies: dysuria Musc: Reports: extremity swelling (Lower extremities) and other (Bilateral leg swelling and pain.); Denies: neck pain or back pain Neuro: Denies: headache(s) or weakness in extremities Psych: Denies: depression Jesus/Lymph: Denies: easy bruising All/Imm: Denies: urticaria, tongue swelling or facial swelling PFSH ED PFSH: Medical History COVID-19 Hepatitis C Family History Mother Hypertension Family/Other Hypertension Denies family history of Diabetes CAD (coronary artery disease) Cancer Social History Smoking and tobacco status: never smoked Alcohol intake: former Substance/Drug Use: never Adopted: No Lives independently: Yes Household members: family Housing: House Physical Exam Const: COMMON NORMALS: no acute distress, patient oriented x3, no limitations and alert HENMT: COMMON NORMALS: normocephalic HEAD & SCALP: normocephalic Eye: COMMON NORMALS: EOMs intact bilaterally Neck/C-Spine: COMMON NORMALS: full ROM and supple Chest: COMMONS NORMALS: normal inspection of the chest Resp: COMMON NORMALS: normal respiratory effort, No retractions, No use of accessory muscles and clear to auscultation bilaterally AUSCULTATION: clear to auscultation bilaterally Cardio: COMMON NORMALS: regular rate, regular rhythm and No murmurs present (Cardio) RATE: regular rate RHYTHM: regular rhythm GI: COMMON NORMALS: Normal to inspection, nondistended, normoactive bowel sounds present and non-tender : COMMON NORMALS: Yes no CVA tenderness BLADDER/KIDNEY EXAM: Yes no CVA tenderness Back/Pelvis: COMMON NORMALS: no CVA tenderness and no thoracic nor lumbar tenderness Extremity: GENERAL: Yes normal exam except as noted OTHER: Bilateral pitting pedal edema with hyperpigmentation of chronic venous stasis especially in the right lower extremity. Scattered superficial ulcers on the anterior miramontes. No erythema or warmth. Dorsalis pedis pulse palpable bilaterallyMedical decision making: Patient has no clinical signs suggestive of DVT. She has no chest symptoms either. The leg swelling and pain is chronic and has been ongoing for about 2 years. 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 Work-up shows mildly deranged LFTs which is consistent with her hepatitis C infection. Albumin is slightly low which may explain the chronic bilateral leg edema. Patient will be given some Lasix. She was at advised to rest and keep the feet elevated as much as possible. She will follow-up with her primary care provider but was advised to return if she develops any new or worsening symptoms. Return instructions provided.. Homans' sign is negative. Neuro: COMMON NORMALS: patient oriented x3 and no focal motor deficits SENSORIUM/ORIENTATION: Yes alert Psych: COMMON NORMALS: mental status grossly normal and cooperative Course Vital Signs: Vital signs: Vital Signs Temperature 99 F 08/28/22 19:30 Pulse Rate 104 H 08/28/22 19:30 Respiratory Rate 18 08/28/22 19:30 Pulse Oximetry 99 08/28/22 19:30 MDM - Extremity (Nontraumatic) Medical Decision Making Medical decision making: Patient has no clinical signs suggestive of DVT. She has no chest symptoms either. The leg swelling and pain is chronic and has been ongoing for about 2 years. 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 Work-up shows mildly deranged LFTs which is consistent with her hepatitis C infection. Albumin is slightly low which may explain the chronic bilateral leg edema. Patient will be given some Lasix. She was at advised to rest and keep the feet elevated as much as possible. She will follow-up with her primary care provider but was advised to return if she develops any new or worsening symptoms. Return instructions provided. Lab Data 08/28/22 19:46 08/28/22 19:46 Laboratory Results WBC 5.5 10^3/uL (4.0-10.0) 08/28/22 19:46 RBC 4.35 10^6/uL (4.1-5.3) 08/28/22 19:46 Hgb 12.1 g/dL (11.5-15.3) 08/28/22 19:46 Hct 38.9 % (37.0-47.0) 08/28/22 19:46 MCV 89.4 fl (81-99) 08/28/22 19:46 MCH 27.8 pg (28.0-34.0) L 08/28/22 19:46 MCHC 31.1 g/dL (30.0-36.0) 08/28/22 19:46 RDW 13.5 % (12.1-15.1) 08/28/22 19:46 Plt Count 105 10^3/cmm (130-400) L 08/28/22 19:46 MPV 12.2 fL (7.4-10.4) H 08/28/22 19:46 Neut % (Auto) 61.4 % 08/28/22 19:46 Lymph % (Auto) 23.4 % 08/28/22 19:46 Traverse % (Auto) 12.3 % 08/28/22 19:46 Eos % (Auto) 1.8 % 08/28/22 19:46 Baso % (Auto) 0.9 % 08/28/22 19:46 Neut # (Auto) 3.39 10^3/uL (1.8-7.7) 08/28/22 19:46 Lymph # (Auto) 1.3 10^3/uL (0.8-4.8) 08/28/22 19:46 Traverse # (Auto) 0.7 10^3/uL (0.2-0.9) 08/28/22 19:46 Eos # (Auto) 0.1 10^3/uL (0.0-0.8) 08/28/22 19:46 Baso # (Auto) 0.1 10^3/uL (0.0-0.1) 08/28/22 19:46 Nucleated RBC % (auto) 0 % 08/28/22 19:46 Nucleated RBCs # 0.0 /100WBC 08/28/22 19:46 Sodium 135 mmol/L (136-145) L 08/28/22 19:46 Potassium 3.7 mmol/L (3.5-5.1) 08/28/22 19:46 Chloride 100 mmol/L (98-107) 08/28/22 19:46 Carbon Dioxide 27 mmol/L (22-29) 08/28/22 19:46 Anion Gap 11.7 (5-19) 08/28/22 19:46 BUN 9 mg/dL (6-20) 08/28/22 19:46 Creatinine 0.5 mg/dL (0.5-0.9) 08/28/22 19:46 GFR Calculation 128.1 mL/min (90-130) 08/28/22 19:46 Glucose 85 mg/dL (65-115) 08/28/22 19:46 Calculated Osmolality 278 mOsm/kg (285-295) L 08/28/22 19:46 Calcium 8.2 mg/dL (8.5-10.5) L 08/28/22 19:46 Total Bilirubin 1.9 mg/dL (0.15-1.2) H 08/28/22 19:46 AST 134 U/L (0-32) H 08/28/22 19:46 ALT 94 U/L (0-33) H 08/28/22 19:46 Alkaline Phosphatase 165 U/L (35-105) H 08/28/22 19:46 NT-Pro-B Natriuret Pep 253 pg/mL (0-125) H 08/28/22 19:46 Total Protein 7.2 g/dL (6.6-8.7) 08/28/22 19:46 Albumin 2.9 g/dL (3.5-5.2) L 08/28/22 19:46 Globulin 4.3 g/dL (1.3-4.6) 08/28/22 19:46 Discharge Plan Discharge Condition: Stable Prescriptions: No Action omeprazole 40 mg capsule,delayed release(DR/EC) 40 mg PO DAILY Qty: 30 0RF albuterol sulfate [Ventolin HFA] 90 mcg/actuation HFA aerosol inhaler 2 puff inhalation Q6H PRN budesonide-formoterol [Symbicort] 80-4.5 mcg/actuation HFA aerosol inhaler 1 inh inhalation BID guaifenesin [Mucinex] 600 mg tablet extended release 12hr 600 mg PO BID Rx Instructions: for 5 dyas cephalexin 500 mg capsule 500 mg PO Q8H 7 Days Qty: 21 0RF Eliquis 5 mg tablet 5 mg PO BID Referrals: Estrella Gerard FNP [Primary Care Provider] - Coding Level of Care Code ED Ornamental Painter for Vera Freeman
[2022-08-28] MEDS: FUROsemide 10 mg/mL SDV 4mL 40 MG IVP (22:00)
[2022-08-28] MEDS: morphine 4 mg/mL SDV 1 mL IVP (22:00)
[2022-08-28 22:46] VITALS: BP 125/61; RESP 16; O2SAT 93
== END 2022-08-28 22:57 | disposition home or self-care (01) ==
PROVIDERS: Emergency Medicine; Emergency Provider Family Medicine; PCP Nurse Practitioner Family
DX: M79.89 Other specified soft tissue disorders (principal); Z86.19 Personal history of other infectious and parasitic diseases
CPT/HCPCS: 36415; 80053; 83880; 85025; 96374; 96375; 99284; J1940; J2270

== ENCOUNTER 2022-11-11 20:58 | Emergency (ER) | payer BC, MEDICAID, SELFPAY ==
[2022-11-11 21:05] VITALS: BP 196/85; PULSE 70; RESP 16; TEMP 36.8; O2SAT 99; BMI 33.3
--- NOTE | 2022-11-11 21:10 | XRR_ITS ---
PROCEDURE INFORMATION: Exam: XR Chest Exam date and time: 11/11/2022 9:26 PM Age: 57 years old Clinical indication: Shortness of breath; Additional info: SOB TECHNIQUE: Imaging protocol: Radiologic exam of the chest. Views: 1 view. COMPARISON: CR XR chest 1V portable [id number] 05/22/2021 4:56 PM FINDINGS: Lungs: Lungs are clear. Pleural spaces: No pleural effusion. No pneumothorax. Heart/Mediastinum: Top-normal cardiac silhouette. Normal mediastinal contours. Bones/joints: No acute osseous abnormality. XR/XR chest 1V portable [id number] IMPRESSION: No acute findings.
--- NOTE | 2022-11-11 21:30 | ED_ITS ---
HPI - Abdominal Pain General: Chief Complaint: Abdominal Pain Stated Complaint: abdomen pain Time Seen by Provider: 11/11/22 21:02 Source: patient Mode of arrival: ambulatory Limitations: no limitations History of Present Illness: 57-year-old female states that over the last week she has had swelling in her abdomen and her legs she states that she been told she may have cirrhosis she had to take water pills in the past is not on any currently.. She states she has had some slight pain denies any fevers states that she feels like she is short of breath due to her abdomen being swollen. Associated Symptoms: Denies chills, diarrhea, fever(s), nausea and vomiting Review of Systems Const: Denies: fever(s) or chills ENMT: Denies: throat pain or dental pain Card: Denies: chest pain Resp: Denies: dyspnea GI: Reports: abdominal pain; Denies: nausea, vomiting or diarrhea Musc: Reports: extremity swelling; Denies: neck pain or back pain Skin/Breast: Denies: rash Neuro: Denies: headache(s) PFSH ED PFSH: Medical History COVID-19 Hepatitis C Family History Mother Hypertension Family/Other Hypertension Denies family history of Diabetes CAD (coronary artery disease) Cancer Social History Smoking and tobacco status: never smoked Alcohol intake: former Substance/Drug Use: never Adopted: No Lives independently: Yes Household members: family Housing: House Physical Exam Const: COMMON NORMALS: no acute distress, patient oriented x3 and healthy appearing HENMT: COMMON NORMALS: normocephalic and atraumatic HEAD & SCALP: normocephalic and atraumatic Neck/C-Spine: COMMON NORMALS: full ROM and supple Chest: COMMONS NORMALS: normal inspection of the chest and normal palpation of entire chest wall Resp: COMMON NORMALS: normal respiratory effort, No retractions, No use of accessory muscles and clear to auscultation bilaterally AUSCULTATION: clear to auscultation bilaterally Cardio: COMMON NORMALS: regular rate, regular rhythm and No murmurs present (Cardio) RATE: regular rate RHYTHM: regular rhythm GI: COMMON NORMALS: Normal to inspection, nondistended, normoactive bowel sounds present, Soft to palpation, non-tender and no masses PALPATION: Yes Soft to palpation Extremity: COMMON NORMALS: normal to inspection and full ROM Neuro: COMMON NORMALS: patient oriented x3, moves all extremities and no focal motor deficits Psych: COMMON NORMALS: mental status grossly normal, Normal thought process p resent and cooperative THOUGHT PROCESS: Normal thought process present Skin: COMMON NORMALS: no rashes or lesions noted and no wounds GENERAL SKIN EXAM: no rashes or lesions noted Course Vital Signs: Vital signs: Vital Signs Temperature 98.2 F 11/11/22 21:05 Pulse Rate 70 11/11/22 21:05 Respiratory Rate 16 11/11/22 21:05 Blood Pressure 196/85 11/11/22 21:05 Pulse Oximetry 99 11/11/22 21:05 MDM - Abdominal Pain Medical Decision Making Patient presents here with some abdominal pain and swelling lungs trailing into her lower extremities lab work here is normal no signs of acute surgical abdomen her abdominal exam here is benign no pneumonia we will start her on Lasix she is to follow-up with PCP and return if worsening she understands agrees to plan. Medical Records I reviewed the patient's medical records. Lab Data I reviewed the patient's lab results. 11/11/22 22:39 11/11/22 22:39 Labs/Radiology: Radiology Impressions Chest X-Ray 11/11/22 21:10 IMPRESSION: No acute findings. Laboratory Results WBC 4.9 10^3/uL (4.0-10.0) 11/11/22 22:39 RBC 4.78 10^6/uL (4.1-5.3) 11/11/22 22:39 Hgb 13.8 g/dL (11.5-15.3) 11/11/22 22:39 Hct 43.2 % (37.0-47.0) 11/11/22 22:39 MCV 90.4 fl (81-99) 11/11/22 22:39 MCH 28.9 pg (28.0-34.0) 11/11/22 22:39 MCHC 31.9 g/dL (30.0-36.0) 11/11/22 22:39 RDW 14.4 % (12.1-15.1) 11/11/22 22:39 Plt Count 75 10^3/cmm (130-400) L 11/11/22 22:39 MPV 12.9 fL (7.4-10.4) H 11/11/22 22:39 Neut % (Auto) 62.7 % 11/11/22 22:39 Lymph % (Auto) 23.3 % 11/11/22 22:39 Mckean % (Auto) 10.8 % 11/11/22 22:39 Eos % (Auto) 2.2 % 11/11/22 22:39 Baso % (Auto) 0.8 % 11/11/22 22:39 Neut # (Auto) 3.09 10^3/uL (1.8-7.7) 11/11/22 22:39 Lymph # (Auto) 1.2 10^3/uL (0.8-4.8) 11/11/22 22:39 Mckean # (Auto) 0.5 10^3/uL (0.2-0.9) 11/11/22 22:39 Eos # (Auto) 0.1 10^3/uL (0.0-0.8) 11/11/22 22:39 Baso # (Auto) 0.0 10^3/uL (0.0-0.1) 11/11/22 22:39 Nucleated RBC % (auto) 0 % 11/11/22 22:39 Nucleated RBCs # 0.0 /100WBC 11/11/22 22:39 Sodium 139 mmol/L (136-145) 11/11/22 22:39 Potassium 4.3 mmol/L (3.5-5.1) 11/11/22 22:39 Chloride 108 mmol/L (98-107) H 11/11/22 22:39 Carbon Dioxide 25 mmol/L (22-29) 11/11/22 22:39 Anion Gap 10.3 (5-19) 11/11/22 22:39 BUN 7 mg/dL (6-20) 11/11/22 22:39 Creatinine 0.5 mg/dL (0.5-0.9) 11/11/22 22:39 GFR Calculation 128.1 mL/min (90-130) 11/11/22 22:39 Glucose 100 mg/dL (65-115) 11/11/22 22:39 Calculated Osmolality 286 mOsm/kg (285-295) 11/11/22 22:39 Calcium 8.0 mg/dL (8.5-10.5) L 11/11/22 22:39 Total Bilirubin 1.5 mg/dL (0.15-1.2) H 11/11/22 22:39 AST 156 U/L (0-32) H 11/11/22 22:39 ALT 87 U/L (0-33) H 11/11/22 22:39 Alkaline Phosphatase 182 U/L (35-105) H 11/11/22 22:39 NT-Pro-B Natriuret Pep 113 pg/mL (0-125) 11/11/22 22:39 Total Protein 6.7 g/dL (6.6-8.7) 11/11/22 22:39 Albumin 2.8 g/dL (3.5-5.2) L 11/11/22 22:39 Globulin 3.9 g/dL (1.3-4.6) 11/11/22 22:39 Lipase 35 U/L (13-60) 11/11/22 22:39 EKG Data EKG 1: I personally reviewed and interpreted this EKG as follows: EKG interpretation date: 11/11/22 EKG interpretation time: 21:03 Interpretation: nsr hr [address] or t wave abnormalities qrs 83 qtc 409 Discharge Plan Discharge Patient Disposition: Home Clinical Impression: Abdominal pain, Edema of both legs Condition: Stable Prescriptions: New Lasix 40 mg tablet 40 mg PO DAILY Qty: 60 0RF No Action omeprazole 40 mg capsule,delayed release(DR/EC) 40 mg PO DAILY Qty: 30 0RF albuterol sulfate [Ventolin HFA] 90 mcg/actuation HFA aerosol inhaler 2 puff inhalation Q6H PRN budesonide-formoterol [Symbicort] 80-4.5 mcg/actuation HFA aerosol inhaler 1 inh inhalation BID guaifenesin [Mucinex] 600 mg tablet extended release 12hr 600 mg PO BID Rx Instructions: for 5 dyas cephalexin 500 mg capsule 500 mg PO Q8H 7 Days Qty: 21 0RF Eliquis 5 mg tablet 5 mg PO BID tramadol 50 mg tablet 50 mg PO TID PRN (Reason: pain) Qty: 20 0RF Lasix 20 mg tablet 20 mg PO DAILY Qty: 14 0RF Discharge Orders: Discharge ED (Routine); Ordered 11/11/22 Ordered By: Dionne Gutiérrez Referrals: Estrella Gerard FNP [Primary Care Provider] - 1-3 days Discharge Diet: Advance as tolerated Discharge Activity: Resume usual activity Patient Instructions: Abdominal Pain (ED), Edema (ED) Coding Level of Care Code ED Boring Machine Set Up Operator for Vera Freeman
[2022-11-11 22:46] LABS: Basophils % 0.8 %; Eosinophils # 0.1 10^3/uL (0.0-0.8); Eosinophils % 2.2 %; Hematocrit 43.2 % (37.0-47.0); Hemoglobin 13.8 g/dL (11.5-15.3); Lymphocytes # 1.2 10^3/uL (0.8-4.8); Lymphocytes % 23.3 %; Mean Corpuscular HGB Conc 31.9 g/dL (30.0-36.0); Mean Corpuscular Hemoglobin 28.9 pg (28.0-34.0); Mean Corpuscular Volume 90.4 fl (81-99); Mean Platelet Volume 12.9 fL (7.4-10.4); Monocytes # 0.5 10^3/uL (0.2-0.9); Monocytes % 10.8 %; Neutrophils # 3.09 10^3/uL (1.8-7.7); Neutrophils % 62.7 %; Nucleated Red Blood Cells % 0 %; Platelet Count 75 10^3/cmm (130-400); Red Blood Count 4.78 10^6/uL (4.1-5.3); Red Cell Distribution Width 14.4 % (12.1-15.1); White Blood Count 4.9 10^3/uL (4.0-10.0)
[2022-11-11] MEDS: FUROsemide 10 mg/mL SDV 10mL 60 MG IVP (23:00)
[2022-11-11 23:14] LABS: Alanine Aminotransferase 87 U/L (0-33); Albumin Level 2.8 g/dL (3.5-5.2); Alkaline Phosphatase 182 U/L (35-105); Blood Urea Nitrogen 7 mg/dL (6-20); Carbon Dioxide 25 mmol/L (22-29); Chloride 108 mmol/L (98-107); Globulin 3.9 g/dL (1.3-4.6); Glomerular Filtration Rate 128.1 mL/min (90-130); Glucose 100 mg/dL (65-115); Lipase 35 U/L (13-60); NT Pro B Type Natriuretic Pept 113 pg/mL (0-125); Osmolality Calculated 286 mOsm/kg (285-295); Sodium 139 mmol/L (136-145); Total Bilirubin 1.5 mg/dL (0.15-1.2); Total Protein 6.7 g/dL (6.6-8.7)
[2022-11-11 23:29] LABS: Anion Gap 10.3 (5-19); Potassium 4.3 mmol/L (3.5-5.1)
[2022-11-11 23:30] LABS: Aspartate Amino Transferase 156 U/L (0-32)
[2022-11-11 23:51] VITALS: BP 210/92; PULSE 72; RESP 16; O2SAT 97
[2022-11-11 23:51] LABS: Add Urine Microscopic? YES; Bilirubin Urine Neg (Negative); Blood Urine Neg (Negative); Glucose Urine UA Norm (Normal); Ketones Urine Negative (Negative); Leukocyte Esterase Urine Trace (Negative); Nitrate Urine Positive (Negative); Protein Urine Neg (Negative); Urine Appearance Hazy (CLEAR); Urine Color Yellow (Yellow); Urobilinogen Urine 12 mg/dL (Negative); pH Urine 7 (5-7)
[2022-11-11 23:52] LABS: Add Urine Culture? Yes; Bacteria Urine 4+ /hpf; WBC Urine 0-4 /hpf (0-5)
--- NOTE | 2022-11-11 23:55 | PC.NURSE ---
Dr Gutiérrez notified of blood pressure upon discharge. No new orders received at time of dc.
== END 2022-11-11 23:55 | disposition home or self-care (01) ==
PROVIDERS: Emergency Provider Emergency Medicine; PCP Nurse Practitioner Family
DX: R10.9 Unspecified abdominal pain (principal); R60.0 Localized edema; Z86.19 Personal history of other infectious and parasitic diseases
CPT/HCPCS: 71045; 80053; 81001; 83690; 83880; 85025; 87077; 87086; 87186; 96374; 99284; J1940

== ENCOUNTER 2022-12-14 10:38 | Emergency (ER) | payer BC, MEDICAID, SELFPAY ==
[2022-12-14 10:45] VITALS: BP 188/92; PULSE 79; RESP 26; TEMP 36.6; O2SAT 97; BMI 31.6
--- NOTE | 2022-12-14 11:08 | ECG_ITS ---
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 Measurements Intervals Elcho Rate: 78 P: 50 IN: 137 QRS: 16 QRSD: 85 T: 31 QT: 401 QTc: 458 Interpretive Statements SINUS RHYTHM NONSPECIFIC T-WAVE ABNORMALITY Compared to ECG 05/22/2021 18:29:56 T-wave abnormality now present Electronically Signed On 12-14-2022 16:03:27 CDT by Christian Whitley M.D. [id number]
--- NOTE | 2022-12-14 11:09 | CT_ITS ---
WS: [id number] CT ABDOMEN AND PELVIS WITH CONTRAST HISTORY: abd pain, severe epigastric pain for 6 days. TECHNIQUE: Imaging performed of the abdomen and pelvis with IV contrast. Single phase imaging of the abdomen. Coronal and sagittal reformats are submitted. All CT scans at [facility] use at [address] one of these dose optimization techniques: automated exposure control; mA and/or kV adjustment per patient size (includes targeted exams where dose is matched to clinical indication); or iterative re construction. IV CONTRAST: Omnipaque 350; 100 mL IV. Oral contrast: No DLP: 1034.93 mGy.cm COMPARISON: None available. Lower thorax: Mild dependent changes and mild pulmonary congestion noted at the lung bases. Very smal l bilateral pleural effusions. Heart is top normal size. Small hiatal hernia. Liver/biliary system: Lobulated margin of the liver. Caudate lobe and LEFT lobe are enlarged. No bile duct dilatation. Portal vein is patent. Gallbladder: Cholecystectomy. Pancreas: Normal size pancreas and pancreatic duct. No adjacent inflammation. Spleen: Enlarged, 15.9 cm in length. Adrenal glands: Normal. Right kidney: Mild cortical thinning. No obstruction. Left kidney: Normal. Aorta: Mild atherosclerosis with no aneurysm. Numerous enlarged splenic collaterals are noted in the LEFT upper abdomen. Lymphadenopathy: None. Free fluid: There is a small amount of ascites throughout the abdomen. Small amount of fluid extends into the central mesentery and along the paracolic gutters into the pelvis. Mild soft tissue anasarca and mesenteric edema. GI tract: Prior appendectomy. No GI tract obstruction. Abdominal wall: Mild soft tissue anasarca. Pelvis: Small amount of free fluid. Uterus is present and normal size. No ovarian mass. Negative urin lizette bladder. No adenopathy. Bones: Schmorl's node superior endplate of L4. IMPRESSION: 1. Small bilateral pleural effusions and mild pulmonary venous congestion. 2. Small amount of ascites throughout the abdomen and pelvis with soft tissue mesenteric edema. 3. Cirrhosis with evidence for portal venous hypertension. Spleen is enlarged with numerous splenic collaterals. 4. Prior appendectomy. 5. No fractures. 6. Prior cholecystectomy.
--- NOTE | 2022-12-14 11:09 | XR_ITS ---
WS: [id number] Exam: XR chest 1V portable [id number] Date/Time of Exam: 12/14/2022 11:09 AM Reason For Exam: dyspnea/cough Comparison 11/11/2022. The lungs are clear and fully inflated. Normal cardiomediastinal silhouette. Regional bony elements a re intact. No pleural effusions. IMPRESSION: 1. No acute cardiopulmonary finding. No change.
[2022-12-14 11:26] LABS: Basophils % 0.9 %; Eosinophils # 0.1 10^3/uL (0.0-0.8); Eosinophils % 2.6 %; Hematocrit 35.8 % (36-47); Lymphocytes % 22.9 %; Mean Corpuscular HGB Conc 32.4 g/dL (30-55); Mean Corpuscular Hemoglobin 28.9 pg (27-33); Mean Corpuscular Volume 89.3 fl (85-98); Mean Platelet Volume 12.2 fL (7.4-10.4); Monocytes # 0.5 10^3/uL (0.2-0.9); Monocytes % 11.1 %; Neutrophils # 2.64 10^3/uL (1.8-7.7); Neutrophils % 62.3 %; Nucleated Red Blood Cells % 0 %; Platelet Count 84 10^3/cmm (157-399); Red Blood Count 4.01 10^6/uL (3.85-5.65); Red Cell Distribution Width 14.2 % (12.1-15.1); White Blood Count 4.24 10^3/uL (3.29-11.43)
--- NOTE | 2022-12-14 11:43 | W.ED.FALL ---
HPI - Fall General: Chief Complaint: Fall Stated Complaint: abd pain Time Seen by Provider: 12/14/22 10:45 Source: patient Mode of arrival: ambulatory History of Present Illness: 57-year-old female presents to the emergency room with complaints of abdominal pain. She was seen a week ago after she fell down 5 steps landed on her right side she was seen about a year evaluated and discharged home she has worsening sternal pain and right flank pain few days after the initial fall she developed some ecchymosis around the umbilicus. She denies any hematuria. No fever sweats or chills. Her symptoms have progressively worsened. No loss of consciousness not had any vomiting or diarrhea no hematochezia melena hematemesis coffee-ground emesis. MD complaint: fall Associated symptoms-after fall: Denies abdominal pain or chest pain Review of Systems Const: Denies: fever(s), chills, body aches, change in appetite, fatigue or malaise ENMT: Denies: throat pain, ear or mastoid pain, nasal discharge or nasal congestion Card: Denies: chest pain, edema, dyspnea on exertion or orthopnea Resp: Denies: dyspnea, productive cough or non-productive cough GI: Denies: abdominal pain, nausea, vomiting, hematemesis, coffee ground emesis, diarrhea, constipation, bloating, hematochezia or melena : Denies: flank pain, difficulty voiding, dysuria, urinary frequency or urinary urgency Skin/Breast: Denies: rash or pruritus PFS ED PFSH: Medical History COVID-19 Hepatitis C Family History Mother Hypertension Family/Other Hypertension Denies family history of Diabetes CAD (coronary artery disease) Cancer Social History Smoking and tobacco status: never smoked Alcohol intake: former Substance/Drug Use: never Adopted: No Lives independently: Yes Household members: family Housing: House Physical Exam Const: GENERAL APPEARANCE: cooperative ORIENTATION/CONSCIOUSNESS: Yes awake, Yes oriented to person, Yes oriented to place and Yes oriented to time HENMT: COMMON NORMALS: normocephalic, atraumatic and hearing grossly normal bilaterally HEAD & SCALP: normocephalic and atraumatic Resp: COMMON NORMALS: normal respiratory effort, No retractions, No use of accessory muscles and clear to auscultation bilaterally AUSCULTATION: clear to auscultation bilaterally Cardio: COMMON NORMALS: regular rate, regular rhythm and No murmurs present (Cardio) RATE: regular rate RHYTHM: regular rhythm GI: COMMON NORMALS: Soft to palpation and No hepatosplenomegaly present AUSCULTATION: Yes normoactive bowel sounds PALPATION: Yes Soft to palpation, No Tenderness to palpation present (GI), No Guarding due to palpation present (GI) and Yes No hepatosplenomegaly present Extremity: COMMON NORMALS: normal to inspection, capillary refill normal, no clubbing, cyanosis or edema, no calf tenderness and no pedal edema Neuro: SENSORIUM/ORIENTATION: Yes oriented to person, Yes oriented to place and Yes oriented to time Skin: COMMON NORMALS: no rashes or lesions noted GENERAL SKIN EXAM: no rashes or lesions noted Course Vital Signs: Vital signs: Vital Signs Temperature 97.9 F 12/14/22 10:45 Pulse Rate 74 12/14/22 13:19 Respiratory Rate 18 12/14/22 13:19 Blood Pressure 133/63 12/14/22 13:19 Pulse Oximetry 96 12/14/22 13:19 Oxygen Delivery Me thod Room Air 12/14/22 13:19 MDM - Fall Medical Decision Making Labs and imaging reviewed no acute injury on chest x-ray or CT abdomen pelvis. Reviewed findings with patient. Supportive cares follow-up as needed Medical Records I reviewed the patient's medical records. Lab Data I reviewed the patient's lab results. 12/14/22 11:15 12/14/22 11:15 Laboratory Results WBC 4.24 10^3/uL (3.29-11.43) 12/14/22 11:15 RBC 4.01 10^6/uL (3.85-5.65) 12/14/22 11:15 Hgb 11.60 g/dL (11.27-16.99) 12/14/22 11:15 Hct 35.8 % (36-47) L 12/14/22 11:15 MCV 89.3 fl (85-98) 12/14/22 11:15 MCH 28.9 pg (27-33) 12/14/22 11:15 MCHC 32.4 g/dL (30-55) 12/14/22 11:15 RDW 14.2 % (12.1-15.1) 12/14/22 11:15 Plt Count 84 10^3/cmm (157-399) L 12/14/22 11:15 MPV 12.2 fL (7.4-10.4) H 12/14/22 11:15 Neut % (Auto) 62.3 % 12/14/22 11:15 Lymph % (Auto) 22.9 % 12/14/22 11:15 [place] % (Auto) 11.1 % 12/14/22 11:15 Eos % (Auto) 2.6 % 12/14/22 11:15 Baso % (Auto) 0.9 % 12/14/22 11:15 Neut # (Auto) 2.64 10^3/uL (1.8-7.7) 12/14/22 11:15 Lymph # (Auto) 1.0 10^3/uL (0.8-4.8) 12/14/22 11:15 [place] # (Auto) 0.5 10^3/uL (0.2-0.9) 12/14/22 11:15 Eos # (Auto) 0.1 10^3/uL (0.0-0.8) 12/14/22 11:15 Baso # (Auto) 0.0 10^3/uL (0.0-0.1) 12/14/22 11:15 Nucleated RBC % (auto) 0 % 12/14/22 11:15 Nucleated RBCs # 0.0 /100WBC 12/14/22 11:15 Sodium 137 mmol/L (136-145) 12/14/22 11:15 Potassium 3.4 mmol/L (3.5-5.1) L 12/14/22 11:15 Chloride 104 mmol/L (98-107) 12/14/22 11:15 Carbon Dioxide 25 mmol/L (22-29) 12/14/22 11:15 Anion Gap 11.4 (5-19) 12/14/22 11:15 BUN 8 mg/dL (6-20) 12/14/22 11:15 Creatinine 0.4 mg/dL (0.5-0.9) L 12/14/22 11:15 GFR Calculation 165.7 mL/min (90-130) H 12/14/22 11:15 Glucose 126 mg/dL (65-115) H 12/14/22 11:15 Calculated Osmolality 284 mOsm/kg (285-295) L 12/14/22 11:15 Calcium 7.7 mg/dL (8.5-10.5) L 12/14/22 11:15 Total Bilirubin 1.2 mg/dL (0.15-1.2) 12/14/22 11:15 AST 106 U/L (0-32) H 12/14/22 11:15 ALT 53 U/L (0-33) H 12/14/22 11:15 Alkaline Phosphatase 183 U/L (35-105) H 12/14/22 11:15 Total Protein 6.3 g/dL (6.6-8.7) L 12/14/22 11:15 Albumin 2.6 g/dL (3.5-5.2) L 12/14/22 11:15 Globulin 3.7 g/dL (1.3-4.6) 12/14/22 11:15 Urine Color Dark yellow (Yellow) 12/14/22 13:22 Urine Appearance Clear (CLEAR) 12/14/22 13:22 Urine pH 7 (5-7) 12/14/22 13:22 Ur Specific [place] 1.005 (1.005-1.030) 12/14/22 13:22 Urine Protein Neg (Negative) 12/14/22 13:22 Urine Glucose (UA) Norm (Normal) 12/14/22 13:22 Urine Ketones Negative (Negative) 12/14/22 13:22 Urine Blood Neg (Negative) 12/14/22 13:22 Urine Nitrate Negative (Negative) 12/14/22 13:22 Urine Bilirubin Neg (Negative) 12/14/22 13:22 Urine Urobilinogen 4+ mg/dL (Negative) H 12/14/22 13:22 Ur Leukocyte Esterase Negative (Negative) 12/14/22 13:22 Discharge Plan Discharge Patient Disposition: Home Clinical Impression: Fall, Abdominal pain Condition: Stable Prescriptions: New tramadol 50 mg tablet 50 mg PO Q8H PRN (Reason: pain) Qty: 10 0RF No Action omeprazole 40 mg capsule,delayed release(DR/EC) 40 mg PO DAILY Qty: 30 0RF albuterol sulfate [Ventolin HFA] 90 mcg/actuation HFA aerosol inhaler 2 puff inhalation Q6H PRN budesonide-formoterol [Symbicort] 80-4.5 mcg/actuation HFA aerosol inhaler 1 inh inhalation BID guaifenesin [Mucinex] 600 mg tablet extended release 12hr 600 mg PO BID Rx Instructions: for 5 dyas cephalexin 500 mg capsule 500 mg PO Q8H 7 Days Qty: 21 0RF Eliquis 5 mg tablet 5 mg PO BID tramadol 50 mg tablet 50 mg PO TID PRN (Reason: pain) Qty: 20 0RF Lasix 20 mg tablet 20 mg PO DAILY Qty: 14 0RF Lasix 40 mg tablet 40 mg PO DAILY Qty: 60 0RF Discharge Orders: Discharge ED (Routine); Ordered 12/14/22 Ordered By: Sergei Nieto Referrals: Estrella Gerard FNP [Primary Care Provider] - Discharge Diet: Usual diet Discharge Activity: Increase activity as tolerated Patient Instructions: Abdominal Pain (ED), Opioid Safety, Pain Management Activity Restrictions/Additional Instructions: You are seen today for pain after a fall from a week ago. CT does not show any acute fractures or acute intra-abdominal or pelvic injury. Chest x-ray was negative laboratory test showed elevated liver enzymes but they are improved from what generally her liver enzymes have been had in the past. There is no sign of bladder infection. Recommend moderate activity to prevent muscle cramping. You can use tramadol as needed follow-up with your primary care doctor. Coding Level of Care Code ED Manager [employer] for Vera Freeman
[2022-12-14 11:47] LABS: Alanine Aminotransferase 53 U/L (0-33); Albumin Level 2.6 g/dL (3.5-5.2); Alkaline Phosphatase 183 U/L (35-105); Anion Gap 11.4 (5-19); Aspartate Amino Transferase 106 U/L (0-32); Blood Urea Nitrogen 8 mg/dL (6-20); Calcium 7.7 mg/dL (8.5-10.5); Carbon Dioxide 25 mmol/L (22-29); Chloride 104 mmol/L (98-107); Globulin 3.7 g/dL (1.3-4.6); Glomerular Filtration Rate 165.7 mL/min (90-130); Glucose 126 mg/dL (65-115); Osmolality Calculated 284 mOsm/kg (285-295); Potassium 3.4 mmol/L (3.5-5.1); Sodium 137 mmol/L (136-145); Total Bilirubin 1.2 mg/dL (0.15-1.2); Total Protein 6.3 g/dL (6.6-8.7)
[2022-12-14] MEDS: ondansetron 2 mg/ML SDV 2 mL 4 MG IVP (11:50)
[2022-12-14] MEDS: morphine 4 mg/mL SDV 1 mL 2 MG IVP (11:50)
[2022-12-14] MEDS: iohexol 350 mg/mL 500 mL Btl (per mL) IV (12:13)
[2022-12-14 13:19] VITALS: BP 133/63; PULSE 74; RESP 18; O2SAT 96
[2022-12-14 13:33] LABS: Add Urine Microscopic? NO; Charge for UA Resulting for Rev
[2022-12-14 13:38] LABS: Urine Appearance Clear (CLEAR); Urine Color Dark Yellow (Yellow)
[2022-12-14 13:39] LABS: Bilirubin Urine Neg (Negative); Blood Urine Neg (Negative); Glucose Urine UA Norm (Normal); Ketones Urine Negative (Negative); Leukocyte Esterase Urine Negative (Negative); Nitrate Urine Negative (Negative); Protein Urine Neg (Negative); Specific Gravity, Urine 1.005 (1.005-1.030); Urobilinogen Urine 4+ mg/dL (Negative); pH Urine 7 (5-7)
== END 2022-12-14 14:10 | disposition home or self-care (01) ==
PROVIDERS: Emergency Provider Family Medicine; PCP Nurse Practitioner Family
DX: R10.9 Unspecified abdominal pain (principal); Z79.01 Long term (current) use of anticoagulants; W10.8XXA Fall (on) (from) other stairs and steps, initial encounter; Z86.19 Personal history of other infectious and parasitic diseases
CPT/HCPCS: 36415; 71045; 74177; 80053; 81003; 85025; 93005; 96374; 96375; 99285; J2270; J2405; Q9967

== ENCOUNTER 2022-12-28 16:50 | Emergency (ER) | payer BC, MEDICAID, SELFPAY ==
--- NOTE | 2022-12-28 17:13 | ECG_ITS ---
[facility] Test Date: 2022-12-28 Pat Name: Sandy Ernandez Department: Room: Gender: Female Safe Technician: : 1965 Requested By: Sergei Dorsey Order Number: [id number] Dano MD: Felix King M.D. Measurements Intervals [place] Rate: 68 P: -24 NC: 141 QRS: 7 QRSD: 80 T: 5 QT: 419 QTc: 448 Interpretive Statements SINUS RHYTHM NONSPECIFIC T-WAVE ABNORMALITY Compared to ECG 12/14/2022 11:08:01 No significant changes Electronically Signed On 12-28-2022 18:45:59 CDT by Felix King M.D. [id number]
[2022-12-28 17:15] VITALS: BP 177/78; PULSE 67; RESP 16; TEMP 36.7; O2SAT 100; BMI 32.4
--- NOTE | 2022-12-28 18:25 | XRR_ITS ---
PROCEDURE INFORMATION: Exam: XR Chest Exam date and time: 12/28/2022 6:36 PM Age: 57 years old Clinical indication: Shortness of breath; Additional info: SOB TECHNIQUE: Imaging protocol: Radiologic exam of the chest. Views: 1 view. COMPARISON: CR XR chest 1V portable [id number] 12/14/2022 11:32 AM FINDINGS: Lungs: Reduced lung volumes. No consolidation. Pleural spaces: Unremarkable. No pleural effusion. No pneumothorax. Heart/Mediastinum: Unremarkable. No cardiomegaly. Bones/joints: Unremarkable. XR/XR chest 1V portable [id number] IMPRESSION: No acute findings.
[2022-12-28 18:44] VITALS: BP 199/103; PULSE 69; RESP 22; O2SAT 100
[2022-12-28 18:48] LABS: Basophils % 0.6 %; Eosinophils # 0.1 10^3/uL (0.0-0.8); Eosinophils % 2.2 %; Hematocrit 39.8 % (36-47); Lymphocytes # 1.1 10^3/uL (0.8-4.8); Lymphocytes % 20.6 %; Mean Corpuscular HGB Conc 31.7 g/dL (30-55); Mean Corpuscular Volume 91.7 fl (85-98); Mean Platelet Volume 12.1 fL (7.4-10.4); Monocytes # 0.5 10^3/uL (0.2-0.9); Monocytes % 9.8 %; Neutrophils # 3.38 10^3/uL (1.8-7.7); Neutrophils % 66.4 %; Nucleated Red Blood Cells % 0 %; Platelet Count 120 10^3/cmm (157-399); Red Blood Count 4.34 10^6/uL (3.85-5.65); Red Cell Distribution Width 14.4 % (12.1-15.1); White Blood Count 5.09 10^3/uL (3.29-11.43)
[2022-12-28] MEDS: labetalol 5 mg/mL SDV 20mL 20 MG IVP (18:51)
[2022-12-28] MEDS: enalaprilat 1.25 mg/mL Inj IVP (18:53)
[2022-12-28] MEDS: FUROsemide 10 mg/mL SDV 2mL 20 MG IVP (18:55)
[2022-12-28 18:56] LABS: INR 1.46 (0.8-1.2)
--- NOTE | 2022-12-28 19:01 | PC.NURSE ---
b/p currently 196/91 prior to administration of labetalol, enalaprilat, and lasix. per Dr. Webb to continue with administration.
[2022-12-28 19:02] VITALS: BP 196/91
[2022-12-28 19:02] LABS: Lactic Sepsis W/Reflex 1.7 mmol/L (0.5-2.2)
[2022-12-28 19:03] VITALS: BP 126/73
[2022-12-28 19:11] LABS: Alanine Aminotransferase 67 U/L (0-33); Albumin Level 2.5 g/dL (3.5-5.2); Alkaline Phosphatase 183 U/L (35-105); Anion Gap 8.7 (5-19); Aspartate Amino Transferase 124 U/L (0-32); Blood Urea Nitrogen 7 mg/dL (6-20); Calcium 7.7 mg/dL (8.5-10.5); Carbon Dioxide 28 mmol/L (22-29); Chloride 106 mmol/L (98-107); Globulin 3.9 g/dL (1.3-4.6); Glomerular Filtration Rate 128.1 mL/min (90-130); Glucose 84 mg/dL (65-115); Magnesium 1.8 mg/dL (1.7-2.3); NT Pro B Type Natriuretic Pept 116 pg/mL (0-125); Osmolality Calculated 285 mOsm/kg (285-295); Potassium 3.7 mmol/L (3.5-5.1); Sodium 139 mmol/L (136-145); Total Bilirubin 1.3 mg/dL (0.15-1.2); Total Protein 6.4 g/dL (6.6-8.7)
[2022-12-28 19:17] LABS: Bilirubin Urine Neg (Negative); Blood Urine Neg (Negative); Glucose Urine UA Norm (Normal); Ketones Urine Negative (Negative); Leukocyte Esterase Urine Negative (Negative); Nitrate Urine Negative (Negative); Protein Urine Neg (Negative); Specific Gravity, Urine 1.015 (1.005-1.030); Urine Appearance SL Hazy (CLEAR); Urine Color Yellow (Yellow); Urobilinogen Urine 4 mg/dL (Negative); pH Urine 7 (5-7)
[2022-12-28 19:18] LABS: Add Urine Culture? No; Add Urine Microscopic? YES; Bacteria Urine TRACE /hpf; Mucus Urine TRACE /hpf; RBC Urine 0-4 /hpf (0-2); Squamous Epithelial Cell Urine 0-4 /hpf (0-5); WBC Urine 0-4 /hpf (0-5)
--- NOTE | 2022-12-28 19:23 | W.ED.SOB ---
HPI - SOB/Dyspnea General: Chief Complaint: Shortness of Breath/Dyspnea Stated Complaint: sob, abd swelling Time Seen by Provider: 12/28/22 18:16 Source: patient History of Present Illness: HPI Narrative: 57-year-old female evidently with a history of liver cirrhosis. She presents with shortness of breath. She states that her belly has gotten slowly more swollen over time, she believes it is inhibiting her ability to breathe. She denies significant cough, fever, sputum production. He has chronic lower extremity swelling that is gotten worse as well. She has a high blood pressure history, and has not been on medication for this. MD elicited complaint: shortness of breath Associated symptoms: Reports abdominal pain; Deny chest pain, dizziness, fever(s), nausea, palpitations or vomiting Review of Systems Const: Denies: fever(s), chills or body aches Eyes: Denies: change in vision Card: Denies: chest pain or palpitations Resp: Denies: dyspnea, productive cough, non-productive cough or wheezing GI: Reports: abdominal pain; Denies: nausea, vomiting, diarrhea or hematochezia : Denies: difficulty voiding Skin/Breast: Denies: rash Neuro: Denies: headache(s), weakness in extremities, dizziness or confusion PFSH ED PFSH: Medical History COVID-19 Hepatitis C Family History Mother Hypertension Family/Other Hypertension Denies family history of Diabetes CAD (coronary artery disease) Cancer Social History Smoking and tobacco status: never smoked Alcohol intake: former Substance/Drug Use: never Adopted: No Lives independently: Yes Household members: family Housing: House Physical Exam Const: COMMON NORMALS: no acute distress GENERAL APPEARANCE: cooperative; not ill appearing and not frail appearing HENMT: COMMON NORMALS: normocephalic, atraumatic and Normal external nose present HEAD & SCALP: normocephalic and atraumatic FACE & SINUS: normal facial exam and face symmetric NOSE: Normal external nose present Eye: COMMON NORMALS: Equal, round and reactive pupils present and EOMs intact bilaterally PUPIL: Yes Equal, round and reactive pupils present Neck/C-Spine: GENERAL: Yes trachea midline Chest: CHEST: Yes Symmetrical chest wall rise Resp: COMMON NORMALS: normal respiratory effort, No retractions, No use of accessory muscles and clear to auscultation bilaterally AUSCULTATION: clear to auscultation bilaterally Cardio: COMMON NORMALS: regular rate and regular rhythm RATE: regular rate RHYTHM: regular rhythm GI: COMMON NORMALS: Soft to palpation INSPECTION: Yes abdominal distension PALPATION: Yes Soft to palpation, No Tenderness to palpation present (GI) and No Guarding due to palpation present (GI) Extremity: COMMON NORMALS: no pedal edema Neuro: RUBA COMA SCALE: document GCS findings Ruba coma scale eye opening: Spontaneous [place] coma scale verbal response: Orientated Ruba coma scale motor response: Obey commands [place] coma scale total score: 15 SENSORY EXAM: Yes extremities (intact) Psych: COMMON NORMALS: speech normal SPEECH: Yes normal speech Skin: COMMON NORMALS: no rashes or lesions noted GENERAL SKIN EXAM: no rashes or lesions noted Course Vital Signs: Vital signs: Vital Signs Temperature 98.0 F 12/28/22 17:15 Pulse Rate 69 12/28/22 18:44 Respiratory Rate 22 H 12/28/22 18:44 Blood Pressure 126/73 12/28/22 19:03 Pulse Oximetry 100 12/28/22 18:44 Oxygen Delivery Me thod Room Air 12/28/22 18:44 MDM - SOB/Dyspnea Medical Decision Making Saturations have been 100% on room air. She was very hypertensive on arrival, and was given labetalol and Vasotec with good results. Platelet count is 120, otherwise CBC normal. BMP is normal. Liver enzymes show bilirubin of 1.3 with mild elevations in AST and ALT. BNP is only 116. Albumin however, is 2.5. Chest x-ray is negative. Given her peripheral swelling, apparent ascites, she will be placed on Lasix. Blood pressure control. Close outpatient follow-up is encouraged with the patient. If relief is incomplete, and still has significant evidence of ascites, can come back as an outpatient for ultrasound-guided paracentesis. Return for problems in the meantime. Lab Data 12/28/22 18:35 12/28/22 18:35 Labs/Radiology: Radiology Impressions Chest X-Ray 12/28/22 18:25 IMPRESSION: No acute findings. Laboratory Results WBC 5.09 10^3/uL (3.29-11.43) 12/28/22 18:35 RBC 4.34 10^6/uL (3.85-5.65) 12/28/22 18:35 Hgb 12.60 g/dL (11.27-16.99) 12/28/22 18:35 Hct 39.8 % (36-47) 12/28/22 18:35 MCV 91.7 fl (85-98) 12/28/22 18:35 MCH 29.0 pg (27-33) 12/28/22 18:35 MCHC 31.7 g/dL (30-55) 12/28/22 18:35 RDW 14.4 % (12.1-15.1) 12/28/22 18:35 Plt Count 120 10^3/cmm (157-399) L 12/28/22 18:35 MPV 12.1 fL (7.4-10.4) H 12/28/22 18:35 Neut % (Auto) 66.4 % 12/28/22 18:35 Lymph % (Auto) 20.6 % 12/28/22 18:35 [place] % (Auto) 9.8 % 12/28/22 18:35 Eos % (Auto) 2.2 % 12/28/22 18:35 Baso % (Auto) 0.6 % 12/28/22 18:35 Neut # (Auto) 3.38 10^3/uL (1.8-7.7) 12/28/22 18:35 Lymph # (Auto) 1.1 10^3/uL (0.8-4.8) 12/28/22 18:35 [place] # (Auto) 0.5 10^3/uL (0.2-0.9) 12/28/22 18:35 Eos # (Auto) 0.1 10^3/uL (0.0-0.8) 12/28/22 18:35 Baso # (Auto) 0.0 10^3/uL (0.0-0.1) 12/28/22 18:35 Nucleated RBC % (auto) 0 % 12/28/22 18:35 Nucleated RBCs # 0.0 /100WBC 12/28/22 18:35 PT 18.20 SECONDS (12.1-14.9) H 12/28/22 18:35 INR 1.46 (0.8-1.2) H 12/28/22 18:35 Sodium 139 mmol/L (136-145) 12/28/22 18:35 Potassium 3.7 mmol/L (3.5-5.1) 12/28/22 18:35 Chloride 106 mmol/L (98-107) 12/28/22 18:35 Carbon Dioxide 28 mmol/L (22-29) 12/28/22 18:35 Anion Gap 8.7 (5-19) 12/28/22 18:35 BUN 7 mg/dL (6-20) 12/28/22 18:35 Creatinine 0.5 mg/dL (0.5-0.9) 12/28/22 18:35 GFR Calculation 128.1 mL/min (90-130) 12/28/22 18:35 Glucose 84 mg/dL (65-115) 12/28/22 18:35 Calculated Osmolality 285 mOsm/kg (285-295) 12/28/22 18:35 Lactic Acid 1.7 mmol/L (0.5-2.2) 12/28/22 18:35 Calcium 7.7 mg/dL (8.5-10.5) L 12/28/22 18:35 Magnesium 1.8 mg/dL (1.7-2.3) 12/28/22 18:35 Total Bilirubin 1.3 mg/dL (0.15-1.2) H 12/28/22 18:35 AST 124 U/L (0-32) H 12/28/22 18:35 ALT 67 U/L (0-33) H 12/28/22 18:35 Alkaline Phosphatase 183 U/L (35-105) H 12/28/22 18:35 NT-Pro-B Natriuret Pep 116 pg/mL (0-125) 12/28/22 18:35 Total Protein 6.4 g/dL (6.6-8.7) L 12/28/22 18:35 Albumin 2.5 g/dL (3.5-5.2) L 12/28/22 18:35 Globulin 3.9 g/dL (1.3-4.6) 12/28/22 18:35 Urine Color Yellow (Yellow) 12/28/22 18:57 Urine Appearance Sl hazy (CLEAR) A 12/28/22 18:57 Urine pH 7 (5-7) 12/28/22 18:57 Ur Specific [place] 1.015 (1.005-1.030) 12/28/22 18:57 Urine Protein Neg (Negative) 12/28/22 18:57 Urine Glucose (UA) Norm (Normal) 12/28/22 18:57 Urine Ketones Negative (Negative) 12/28/22 18:57 Urine Blood Neg (Negative) 12/28/22 18:57 Urine Nitrate Negative (Negative) 12/28/22 18:57 Urine Bilirubin Neg (Negative) 12/28/22 18:57 Urine Urobilinogen 4 mg/dL (Negative) H 12/28/22 18:57 Ur Leukocyte Esterase Negative (Negative) 12/28/22 18:57 Urine RBC 0-4 /hpf (0-2) H 12/28/22 18:57 Urine WBC 0-4 /hpf (0-5) H 12/28/22 18:57 Ur Squamous Epith Cells 0-4 /hpf (0-5) H 12/28/22 18:57 Amorphous Sediment Not Reportable 12/28/22 18:57 Urine Bacteria Trace /hpf (NONE) 12/28/22 18:57 Urine Mucus Trace /hpf 12/28/22 18:57 All radiology interpretation(s) finalized by discharge Discharge Plan Discharge Patient Disposition: Home Clinical Impression: Hepatitis C, Chronic liver disease, Hypoalbuminemia, Abdominal ascites, Hypertension Condition: Stable Prescriptions: New lisinopril 10 mg tablet 5 mg PO DAILY Qty: 30 0RF Continued Lasix 40 mg tablet 40 mg PO DAILY Qty: 10 0RF No Action omeprazole 40 mg capsule,delayed release(DR/EC) 40 mg PO DAILY Qty: 30 0RF albuterol sulfate [Ventolin HFA] 90 mcg/actuation HFA aerosol inhaler 2 puff inhalation Q6H PRN budesonide-formoterol [Symbicort] 80-4.5 mcg/actuation HFA aerosol inhaler 1 inh inhalation BID guaifenesin [Mucinex] 600 mg tablet extended release 12hr 600 mg PO BID Rx Instructions: for 5 dyas cephalexin 500 mg capsule 500 mg PO Q8H 7 Days Qty: 21 0RF Eliquis 5 mg tablet 5 mg PO BID tramadol 50 mg tablet 50 mg PO TID PRN (Reason: pain) Qty: 20 0RF Lasix 20 mg tablet 20 mg PO DAILY Qty: 14 0RF tramadol 50 mg tablet 50 mg PO Q8H PRN (Reason: pain) Qty: 10 0RF Discharge Orders: Discharge ED (Routine); Ordered 12/28/22 Ordered By: Beny Webb Referrals: Estrella Gerard FNP [Primary Care Provider] - 1-3 days Patient Instructions: Cirrhosis of the Liver (ED), Ascites (ED), Hypertension (ED) Activity Restrictions/Additional Instructions: Medication as directed. 1 is for the swelling in your belly, and legs. 1 is for blood pressure. Call your doctor tomorrow, for an appointment this or next week. You will need close follow-up for your condition. If medication does not help take the fluid off of your belly sufficiently, you can be set up as an outpatient for drainage of the fluid off of your belly. This is called a paracentesis. Return in the meantime for fever, worsening shortness of breath despite treatment, other concerning symptoms. Coding Level of Care Code ED Inspector Material Disposition for Vera Freeman
== END 2022-12-28 19:49 | disposition home or self-care (01) ==
PROVIDERS: Emergency Provider Emergency Medicine; PCP Nurse Practitioner Family
DX: K76.9 Liver disease, unspecified (principal); B19.20 Unspecified viral hepatitis C without hepatic coma; E88.09 Other disorders of plasma-protein metabolism, not elsewhere classified; R18.8 Other ascites; I10 Essential (primary) hypertension; Z79.01 Long term (current) use of anticoagulants
CPT/HCPCS: 71045; 80053; 81001; 83605; 83735; 83880; 85025; 85610; 93005; 96374; 96375; 99285; J1940; J3490

== ENCOUNTER 2023-03-30 13:33 | Emergency (ER) | payer BC, MEDICAID, SELFPAY ==
[2023-03-30 13:51] VITALS: BP 147/83; PULSE 69; RESP 17; TEMP 36.4; O2SAT 97; BMI 33.3
--- NOTE | 2023-03-30 14:11 | XRR_ITS ---
PROCEDURE INFORMATION: Exam: XR Chest Exam date and time: 03/30/2023 2:15 PM Age: 57 years old Clinical indication: Injury or trauma; Fall; Blunt trauma (contusions or hematomas) TECHNIQUE: Imaging protocol: Radiologic exam of the chest. Views: 1 view. COMPARISON: CR (CHEST, ) 12/28/2022 6:36 PM FINDINGS: Lungs: Mild atelectasis at the medial right lung base. Pleural spaces: Unremarkable. No pleural effusion. No pneumothorax. Heart/Mediastinum: Unremarkable. No cardiomegaly. Bones/joints: Unremarkable. XR/XR chest 1V portable [id number] IMPRESSION: No acute cardiopulmonary disease.
--- NOTE | 2023-03-30 14:11 | XRR_ITS ---
PROCEDURE INFORMATION: Exam: XR Left Wrist Exam date and time: 03/30/2023 2:16 PM Age: 57 years old Clinical indication: Injury or trauma; Fall; Blunt trauma (contusions or hematomas); Wrist; Left TECHNIQUE: Imaging protocol: Radiologic exam of the left wrist. Views: 3 or more views. COMPARISON: No relevant prior studies available. FINDINGS: Bones/joints: Normal. No fracture or dislocation. No acute osseous, joint, or soft tissue abnormality. Soft tissues: Normal. XR/XR wrist LT min 3V* [id number] IMPRESSION: No acute traumatic injury.
--- NOTE | 2023-03-30 14:43 | XRR_ITS ---
PROCEDURE INFORMATION: Exam: XR Left Hand Exam date and time: 03/30/2023 2:47 PM Age: 57 years old Clinical indication: Injury or trauma; Fall; Blunt trauma (contusions or hematomas); Hand; Left; Injury details: Hurt lt 5th digit TECHNIQUE: Imaging protocol: Radiologic exam of the left hand. Views: 3 or more views. COMPARISON: CR (UP EXM, ) 03/30/2023 2:16 PM FINDINGS: Bones/joints: Normal. No acute osseous, joint, or soft tissue abnormality. Interphalangeal articular surface narrowing and spurring, particularly involving the 3rd DIP joint. No erosive changes. Soft tissues: Normal. XR/XR hand LT min 3V* [id number] IMPRESSION: Arthritic changes. No acute findings. The
--- NOTE | 2023-03-30 14:44 | W.ED.EXTPRO ---
HPI - Extremity Problem General: Chief complaint: Extremity Injury, Upper Stated complaint: fall Time Seen by Provider: 03/30/23 13:59 Source: patient Mode of arrival: ambulatory Limitations: no limitations History of Present Illness: 57-year-old female states she has had cough congestion over the last 6 days she was diagnosed with COVID last week at [facility]. States she did not have cough states she had had a fall 2 days ago going up stairs fell landed on her left wrist and left hand has left wrist and hand pain she states she also hit her left ribs and has pain over left ribs. She states she has had increased pain in her left ribs especially when she coughs. She denies any severe shortness of breath denies any fever Associated symptoms: Reports chest pain; Deny fever(s) or rash Review of Systems Const: Denies: fever(s), chills, body aches or change in appetite ENMT: Denies: throat pain or dental pain Card: Reports: chest pain Resp: Reports: non-productive cough; Denies: dyspnea GI: Denies: abdominal pain, nausea, vomiting or diarrhea Musc: Reports: extremity pain; Denies: neck pain or back pain Skin/Breast: Denies: rash Neuro: Denies: headache(s) PFSH ED PFSH: Medical History COVID-19 Hepatitis C Family History Mother Hypertension Family/Other Hypertension Denies family history of Diabetes CAD (coronary artery disease) Cancer Social History Smoking and tobacco/nicotine status: never used tobacco/nicotine Alcohol intake: former Substance/Drug Use: never Adopted: No Lives independently: Yes Household members: family Housing: House Physical Exam Const: COMMON NORMALS: no acute distress, patient oriented x3 and healthy appearing HENMT: COMMON NORMALS: normocephalic and atraumatic HEAD & SCALP: normocephalic and atraumatic Neck/C-Spine: COMMON NORMALS: full ROM and supple Chest: COMMONS NORMALS: normal inspection of the chest OTHER: Left chest wall tenderness Resp: COMMON NORMALS: normal respiratory effort, No retractions, No use of accessory muscles and clear to auscultation bilaterally AUSCULTATION: clear to auscultation bilaterally Cardio: COMMON NORMALS: regular rate, regular rhythm and No murmurs present (Cardio) RATE: regular rate RHYTHM: regular rhythm Extremity: COMMON NORMALS: full ROM NARRATIVE EXTREMITY EXAM: Tenderness to left wrist along with left ulnar aspect of hand no obvious deformities on exam Neuro: COMMON NORMALS: patient oriented x3, moves all extremities and no focal motor deficits Psych: COMMON NORMALS: mental status grossly normal, Normal thought process present and cooperative THOUGHT PROCESS: Normal thought process present Skin: COMMON NORMALS: no rashes or lesions noted and no wounds GENERAL SKIN EXAM: no rashes or lesions noted Course Vital Signs: Vital signs: Vital Signs Temperature 97.6 F 03/30/23 13:51 Pulse Rate 69 03/30/23 13:51 Respiratory Rate 17 03/30/23 13:51 Blood Pressure 147/83 03/30/23 13:51 Pulse Oximetry 97 03/30/23 13:51 Oxygen Delivery Me thod Room Air 03/30/23 13:51 MDM - Extremity (Nontraumatic) Medical Decision Making Patient presents with wrist pain along with chest wall pain from a fall x-rays here are negative patient does have a cough likely from her COVID x-ray shows no pneumonia we will prescribe her Naprosyn along with Tessalon she is to follow-up with PCP and return if worsening she understands agrees plan Medical Records I reviewed the patient's medical records. Lab Data I reviewed the patient's lab results. Radiology Impressions Chest X-Ray 03/30/23 14:11 IMPRESSION: No acute cardiopulmonary disease. Wrist X-Ray 03/30/23 14:11 IMPRESSION: No acute traumatic injury. Hand X-Ray 03/30/23 14:43 IMPRESSION: Arthritic changes. No acute findings. The All radiology interpretation(s) finalized by discharge Discharge Plan Discharge Patient Disposition: Home Clinical Impression: Chest wall pain, Contusion of right wrist, COVID-19 Condition: Stable Prescriptions: New naproxen [Naprosyn] 500 mg tablet 500 mg PO BID PRN (Reason: pain) Qty: 20 0RF benzonatate 100 mg capsule 100 mg PO TID PRN (Reason: cough) Qty: 20 0RF No Action clindamycin HCl 300 mg capsule 300 mg PO Q8H 10 Days Qty: 30 0RF mupirocin 2 % ointment 1 applic topical BID Qty: 22 1RF Lasix 20 mg tablet 20 mg PO DAILY Qty: 14 0RF lisinopril 10 mg tablet 5 mg PO DAILY Qty: 30 0RF Lasix 40 mg tablet 40 mg PO DAILY Qty: 10 0RF Discharge Orders: Discharge ED (Routine); Ordered 03/30/23 Ordered By: Dionne Gutiérrez Referrals: Estrella Gerard FNP [Primary Care Provider] - 1-3 days Discharge Diet: Advance as tolerated Discharge Activity: Resume usual activity Patient Instructions: Chest Wall Pain (ED) Coding Level of Care Code ED Criminal Justice Instructor for Vera Freeman
[2023-03-30] MEDS: dexamethasone 10 mg/mL INJ IM (14:50)
[2023-03-30] MEDS: HYDROcodone-acetaminophen 5-325 mg Tablet 1 TAB PO (14:50)
[2023-03-30 15:10] VITALS: BP 149/90; PULSE 72; O2SAT 95
== END 2023-03-30 15:12 | disposition home or self-care (01) ==
PROVIDERS: Emergency Provider Emergency Medicine; PCP Nurse Practitioner Family
DX: U07.1 COVID-19 (principal); R07.89 Other chest pain; S60.212A Contusion of left wrist, initial encounter; Z86.19 Personal history of other infectious and parasitic diseases; W10.8XXA Fall (on) (from) other stairs and steps, initial encounter
CPT/HCPCS: 71045; 73110; 73130; 96372; 99284; J1100

== ENCOUNTER 2023-07-30 16:50 | Observation (INO) | payer BC, MEDICAID, SELFPAY ==
[2023-07-30 16:50] VITALS: BP 174/91; PULSE 81; RESP 18; TEMP 36.8; O2SAT 98
--- NOTE | 2023-07-30 17:17 | CTR_ITS ---
PROCEDURE INFORMATION: Exam: CT Abdomen And Pelvis With Contrast Exam date and time: 07/30/2023 5:50 PM Age: 58 years old Clinical indication: Bloating; Abdominal pain; Generalized; Prior surgery; Surgery date: 6+ months; Surgery type: Gb. Appy; Patient HX: Diffuse abd pain with distention. History of hep c and cirrhosis. TECHNIQUE: Imaging protocol: Computed tomography of the abdomen and pelvis with contrast. Radiation optimization: All CT scans at this facility use at least one of these dose optimization techniques: automated exposure control; mA and/or kV adjustment per patient size (includes targeted exams where dose is matched to clinical indication); or iterative reconstruction. Contrast material: OMNI 350; Contrast volume: 100 ml; Contrast route: INTRAVENOUS (IV); COMPARISON: CT abdomen pelvis w con* [id number] 12/14/2022 12:09 PM RADIATION DOSE METRICS: Total DLP (mGy-cm): 1066.29 FINDINGS: Lungs: Mild basilar scar versus atelectasis. Pleural spaces: Interval increase in right pleural effusion now [id number] in size. Tiny left pleural effusion is unchanged. Liver: Nodular liver consistent with cirrhosis again seen. No focal liver lesion evident. Gallbladder and bile ducts: Prior cholecystectomy. No biliary dilatation. Pancreas: No significant pancreatic pathology. Spleen: Splenomegaly again noted measuring 16.5 cm in length. Adrenal glands: No significant adrenal pathology. Kidneys and ureters: Subcentimeter renal cortical hypodensities, indeterminate by criteria but statistically most likely representing cysts. Stomach and bowel: Colonic diverticulosis without evidence of focal inflammatory change. Appendix: No appendiceal pathology evident. Intraperitoneal space: Interval increase in ascites now large in quantity. Vasculature: Varices again noted with locations including periesophageal, gastrohepatic ligament, gastrosplenic ligament, left perirenal and omental locations. No abdominal aortic aneurysm. Lymph nodes: No evidence of lymphadenopathy. Stable mild bilateral inguinal lymphadenopathy. Urinary bladder: Unremarkable urinary bladder. Reproductive: Inhomogeneous uterus again noted suggestive of presence of fibroids with new area of low attenuation in the left paramedian uterus measuring 8 mm most likely representing fibroid degeneration. No significant adnexal pathology. Bones/joints: Old healed left anterolateral 8th rib fracture seen on series 4, image 12. Mild degenerative change present in the spine. Superior endplate compression deformity of the L4 with Schmorl node and mild L3-L4 degenerative disc disease again noted. Soft tissues: Unremarkable. CT/CT abdomen pelvis w con* [id number] IMPRESSION: 1. Interval increase in abdominal ascites and right pleural effusion now [id number] in size. Features of hepatic cirrhosis and portal hypertension again noted additionally including splenomegaly and varices. 2. New 8 mm hypodensity in the left uterus with underlying uterine inhomogeneity suggestive of fibroids again noted; ultrasound could be performed for more detailed assessment. 3. Minor findings described above.
--- NOTE | 2023-07-30 17:19 | W.ED.GENADLT ---
HPI - General Adult General: Chief complaint: General Medical Stated complaint: abd pain, swelling Time Seen by Provider: 07/30/23 16:58 History of Present Illness: 58-year-old female presents emergency department with complaints of abdominal distention and swelling to her bilateral legs extending into her abdomen. She states she is having difficulty taking a deep breath in because of all of the abdominal fluid. She states this has accumulated over the previous 5 days. She states she was diagnosed with hepatitis C and liver cirrhosis and has never had a paracentesis to drain the fluid off her abdomen. She states her abdomen is significantly distended and is causing her 3 out of 10 pain. She denies nausea vomiting fevers chills or night sweats. Associated symptoms: Reports dyspnea; Deny chest pain, nausea or vomiting Review of Systems General: Reports: 10 or more systems reviewed and unremarkable except in HPI and below Card: Denies: chest pain Resp: Reports: dyspnea GI: Reports: abdominal pain; Denies: nausea or vomiting [facility] ED PFSH: Medical History (Updated 07/30/23 @ 22:43 by Phyllis Moraes MD) Cellulitis Cellulitis of leg, right COVID-19 Hepatitis C Family History Mother Hypertension Family/Other Hypertension Denies family history of Diabetes CAD (coronary artery disease) Cancer Social History Smoking and tobacco/nicotine status: never used tobacco/nicotine Alcohol intake: former Substance/Drug Use: never Adopted: No Lives independently: Yes Household members: family Housing: House Physical Exam Narrative: EXAM NARRATIVE: General: Alert, no acute distress. Skin: Warm, dry, Intact. Head: Normocephalic, atraumatic. Neck: Supple, trachea midline. Eye: Extraocular movements are intact. PERRLA Ears, nose, mouth and throat: mucosa moist. Cardiovascular: Regular, Normal peripheral perfusion. Respiratory: Lungs are clear to auscultation, respirations are non-labored, breath sounds are equal, Symmetrical chest wall expansion. Gastrointestinal: Firm, significantly distended, positive abdominal ascites and positive fluid wave, nontender to percussion. Normal bowel sounds. Musculoskeletal: Normal ROM, no deformity. Neurological: Alert and oriented, No focal neurological deficit observed. Psychiatric: Cooperative, appropriate mood & affect. Course Vital Signs: Vital signs: Vital Signs Temperature 98.2 F 07/30/23 16:50 Pulse Rate 83 07/30/23 22:30 Respiratory Rate 20 H 07/30/23 22:30 Blood Pressure 177/92 07/30/23 22:30 Pulse Oximetry 100 07/30/23 22:30 Oxygen Delivery Me thod Room Air 07/30/23 22:30 MDM - General Adult Medical Decision Making Physical exam completed and documented, I did obtain a CBC, CMP, lipase, ammonia level and a CT scan of the abdomen pelvis and will request admission to the hospital service for additional evaluation treatment and care and paracentesis. PROCEDURE NOTE: Paracentesis with US guidance Indication: Abdominal ascities causing abdominal pain and dyspnea Consent: After the explanation of the risks, benefits, alternatives and possible complications, written and verbal informed consent was obtained from the patient and family member and placed in the chart. A timeout was performed per hospital policy. Procedure: The patient was identified and placed in the supine position. The bilateral lower quadrants were interrogated with ultrasound. The LEFT lower quadrant was determined to be the preferred approach for the procedure. After the appropriate site was chosen for needle entry, this area was marked, prepped, and draped in the usual sterile fashion. Local infiltrative anesthesia was achieved with 1% Lidocaine without Epinephrine. An 11 blade scalpel was used to make a small skin incision into the LEFT . The tissue dilator was used to cannulate the site and was advanced through the abdominal wall under continuous negative pressure until ascitic fluid was aspirated. A 14 fr- drainage catheter with flex blue tip was inserted and advanced through the abdominal wall under continuous negative pressure until serous fluid was aspirated. Approximately 5000 ml of fluid was removed and the catheter was removed and a sterile dressing was placed. Hemostasis was was maintained. Post-procedural images revealed no immediate complications and significantly decreased residual ascites. The patient tolerated the procedure well and had no immediate complications. (The aspirated fluid was hand delivered to the lab and/or pathology for further testing.) The patient was admitted to the general medical floor with admission orders placed by the hospital medicine team. Differential Diagnosis Malnutrition, cirrhosis, abdominal ascites, spontaneous bacterial peritonitis, Medical Records I reviewed the patient's medical records. Lab Data I reviewed the patient's lab results. 07/30/23 17:45 07/30/23 17:45 Radiology Impressions Abdomen/Pelvis CT 07/30/23 17:17 IMPRESSION: 1. Interval increase in abdominal ascites and right pleural effusion now [id number] in size. Features of hepatic cirrhosis and portal hypertension again noted additionally including splenomegaly and varices. 2. New 8 mm hypodensity in the left uterus with underlying uterine inhomogeneity suggestive of fibroids again noted; ultrasound could be performed for more detailed assessment. 3. Minor findings described above. Laboratory Results WBC 4.24 10^3/uL (3.29-11.43) 07/30/23 17:45 RBC 4.66 10^6/uL (3.85-5.65) 07/30/23 17:45 Hgb 13.60 g/dL (11.27-16.99) 07/30/23 17:45 Hct 42.3 % (36-47) 07/30/23 17:45 MCV 90.8 fl (85-98) 07/30/23 17:45 MCH 29.2 pg (27-33) 07/30/23 17:45 MCHC 32.2 g/dL (30-55) 07/30/23 17:45 RDW 14.4 % (12.1-15.1) 07/30/23 17:45 Plt Count 99 10^3/cmm (157-399) L 07/30/23 17:45 MPV 12.0 fL (7.4-10.4) H 07/30/23 17:45 Neut % (Auto) 64.5 % 07/30/23 17:45 Lymph % (Auto) 19.8 % 07/30/23 17:45 [place] % (Auto) 10.8 % 07/30/23 17:45 Eos % (Auto) 3.5 % 07/30/23 17:45 Baso % (Auto) 1.2 % 07/30/23 17:45 Neut # (Auto) 2.73 10^3/uL (1.8-7.7) 07/30/23 17:45 Lymph # (Auto) 0.8 10^3/uL (0.8-4.8) 07/30/23 17:45 [place] # (Auto) 0.5 10^3/uL (0.2-0.9) 07/30/23 17:45 Eos # (Auto) 0.2 10^3/uL (0.0-0.8) 07/30/23 17:45 Baso # (Auto) 0.1 10^3/uL (0.0-0.1) 07/30/23 17:45 Nucleated RBC % (auto) 0 % 07/30/23 17:45 Nucleated RBCs # 0.0 /100WBC 07/30/23 17:45 PT 18.30 SECONDS (12.1-14.9) H 07/30/23 17:45 INR 1.47 (0.8-1.2) H 07/30/23 17:45 Sodium 138 mmol/L (136-145) 07/30/23 17:45 Potassium 3.3 mmol/L (3.5-5.1) L 07/30/23 17:45 Chloride 107 mmol/L (98-107) 07/30/23 17:45 Carbon Dioxide 28 mmol/L (22-29) 07/30/23 17:45 Anion Gap 6.3 (5-19) 07/30/23 17:45 BUN 7 mg/dL (6-20) 07/30/23 17:45 Creatinine 0.4 mg/dL (0.5-0.9) L 07/30/23 17:45 GFR Calculation 165.1 mL/min (90-130) H 07/30/23 17:45 Glucose 114 mg/dL (65-115) 07/30/23 17:45 Calculated Osmolality 285 mOsm/kg (285-295) 07/30/23 17:45 Lactic Acid 1.1 mmol/L (0.5-2.2) 07/30/23 17:45 Calcium 7.8 mg/dL (8.5-10.5) L 07/30/23 17:45 Total Bilirubin 2.0 mg/dL (0.15-1.2) H 07/30/23 17:45 AST 44 U/L (0-32) H 07/30/23 17:45 ALT 25 U/L (0-33) 07/30/23 17:45 Alkaline Phosphatase 177 U/L (35-105) H 07/30/23 17:45 Ammonia 48 umol/L (11-51) 07/30/23 17:45 Total Protein 6.8 g/dL (6.6-8.7) 07/30/23 17:45 Albumin 2.7 g/dL (3.5-5.2) L 07/30/23 17:45 Globulin 4.1 g/dL (1.3-4.6) 07/30/23 17:45 Lipase 29 U/L (13-60) 07/30/23 17:45 Tumor Marker AFP 8.0 ng/mL (0-8.3) 07/30/23 17:45 Procalcitonin 0.04 ng/mL (0-0.5) 07/30/23 17:45 Urine Color Yellow (Yellow) 07/30/23 19:15 Urine Appearance Clear (CLEAR) 07/30/23 19:15 Urine pH 8 (5-7) H 07/30/23 19:15 Ur Specific [place] 1.005 (1.005-1.030) 07/30/23 19:15 Urine Protein Trace (Negative) 07/30/23 19:15 Urine Glucose (UA) Norm (Normal) 07/30/23 19:15 Urine Ketones Negative (Negative) 07/30/23 19:15 Urine Blood Trace (Negative) H 07/30/23 19:15 Urine Nitrate Negative (Negative) 07/30/23 19:15 Urine Bilirubin Neg (Negative) 07/30/23 19:15 Prot Sulfosalicylic Acd Negative (Negative) 07/30/23 19:15 Urine Urobilinogen 4 mg/dL (Negative) H 07/30/23 19:15 Ur Leukocyte Esterase 1+ (Negative) H 07/30/23 19:15 Urine RBC 0-4 /hpf (0-2) H 07/30/23 19:15 Urine WBC 5-10 /hpf (0-5) H 07/30/23 19:15 Ur Squamous Epith Cells 0-4 /hpf (0-5) H 07/30/23 19:15 Amorphous Sediment Not Reportable 07/30/23 19:15 Urine Bacteria 1+ /hpf (NONE) H 07/30/23 19:15 All radiology interpretation(s) finalized by discharge Discharge Plan Discharge Patient Disposition: Admitted As Inpatient Admit Provider: Phyllis Moraes Clinical Impression: Abdominal ascites, Abdominal pain Condition: Stable Coding Level of Care Code ED Instructor Looping for Chg Lydia
[2023-07-30] MEDS: iohexol 350 mg/mL 500 mL Btl (per mL) IV (17:50)
[2023-07-30 17:56] LABS: Basophils # 0.1 10^3/uL (0.0-0.1); Basophils % 1.2 %; Eosinophils # 0.2 10^3/uL (0.0-0.8); Eosinophils % 3.5 %; Hematocrit 42.3 % (36-47); Lymphocytes # 0.8 10^3/uL (0.8-4.8); Lymphocytes % 19.8 %; Mean Corpuscular HGB Conc 32.2 g/dL (30-55); Mean Corpuscular Hemoglobin 29.2 pg (27-33); Mean Corpuscular Volume 90.8 fl (85-98); Monocytes # 0.5 10^3/uL (0.2-0.9); Monocytes % 10.8 %; Neutrophils # 2.73 10^3/uL (1.8-7.7); Neutrophils % 64.5 %; Nucleated Red Blood Cells % 0 %; Platelet Count 99 10^3/cmm (157-399); Red Blood Count 4.66 10^6/uL (3.85-5.65); Red Cell Distribution Width 14.4 % (12.1-15.1); White Blood Count 4.24 10^3/uL (3.29-11.43)
[2023-07-30 18:13] LABS: INR 1.47 (0.8-1.2)
[2023-07-30 18:20] LABS: Alanine Aminotransferase 25 U/L (0-33); Albumin Level 2.7 g/dL (3.5-5.2); Alkaline Phosphatase 177 U/L (35-105); Anion Gap 6.3 (5-19); Aspartate Amino Transferase 44 U/L (0-32); Blood Urea Nitrogen 7 mg/dL (6-20); Calcium 7.8 mg/dL (8.5-10.5); Carbon Dioxide 28 mmol/L (22-29); Chloride 107 mmol/L (98-107); Creatinine Clr Calc Pharmacy 185.0956; Globulin 4.1 g/dL (1.3-4.6); Glomerular Filtration Rate 165.1 mL/min (90-130); Glucose 114 mg/dL (65-115); Lipase 29 U/L (13-60); Osmolality Calculated 285 mOsm/kg (285-295); Potassium 3.3 mmol/L (3.5-5.1); Sodium 138 mmol/L (136-145); Total Protein 6.8 g/dL (6.6-8.7)
[2023-07-30 18:21] LABS: Ammonia 48 umol/L (11-51)
[2023-07-30 18:22] LABS: Lactic Sepsis W/Reflex 1.1 mmol/L (0.5-2.2)
[2023-07-30 18:25] VITALS: BP 211/113; PULSE 82; O2SAT 100
[2023-07-30 18:27] LABS: Procalcitonin 0.04 ng/mL (0-0.5)
[2023-07-30] MEDS: hyDRALAzine 20 mg/mL INJ 1 mL IVP (18:41)
[2023-07-30 19:34] VITALS: BP 173/82; PULSE 98; RESP 22; O2SAT 99
[2023-07-30 19:47] LABS: Add Urine Microscopic? YES; Bacteria Urine 1+ /hpf; Bilirubin Urine Neg (Negative); Blood Urine Trace (Negative); Glucose Urine UA Norm (Normal); Ketones Urine Negative (Negative); Leukocyte Esterase Urine 1+ (Negative); Nitrate Urine Negative (Negative); Protein Urine Trace (Negative); RBC Urine 0-4 /hpf (0-2); Specific Gravity, Urine 1.005 (1.005-1.030); Squamous Epithelial Cell Urine 0-4 /hpf (0-5); Sulfosalicylic Acid Urine Negative (Negative); Urine Appearance Clear (CLEAR); Urine Color Yellow (Yellow); Urobilinogen Urine 4 mg/dL (Negative); pH Urine 8 (5-7)
[2023-07-30] MEDS: albumin 37.5 GM/150 ML VIAL IV (20:31)
[2023-07-30 22:30] VITALS: BP 177/92; PULSE 83; RESP 20; O2SAT 100
--- NOTE | 2023-07-30 22:41 | P.HP_ITS ---
Providers/Chief Complaint 2 Primary Care Provider: MARCELINO Rodrigez Chief Complaint: abd pain, swelling History of Present Illness Sandy Ernandez is a 58 year old female with history of liver cirrhosis, hepatitis C, IV drug abuse in the past, stating that she follows up with a examination grader in [place], last visit was in March 2023 presented with chief complaint abdominal discomfort and inability to take a deep breath. Patient is denying fever, nausea, vomiting diarrhea hematemesis or blood in stool. She never had a EGD, patient is not sure about her medications completely but seem like she is on Lasix only, she is not on spironolactone, she does not take lactulose either. She is seeing nurse practitioner Estrella at [facility]. In the ER Dr. New decided to do diagnostic and therapeutic paracentesis in order to relieve her symptoms She is not showing signs of encephalopathy, no asterixis, she is awake and alert, ammonia level within normal range, Significant ascites Patient is stating that she has never been treated for hepatitis C however she was diagnosed 4 years ago with hepatitis C and with liver cirrhosis 2 years ago Review of Systems 2 Const: Denies: fever(s) Eyes: Denies: change in vision ENMT: Denies: throat pain Card: Denies: chest pain Resp: Reports: dyspnea GI: Reports: abdominal pain : Denies: flank pain Medications/Allergies Home Medications Medication Instructions Recorded Confirmed Last Taken Type furosemide 20 mg tablet (Lasix) 20 mg PO DAILY #14 tabs 08/28/22 01/07/23 Unknown Rx furosemide 40 mg tablet (Lasix) 40 mg PO DAILY #10 tabs 12/28/22 01/07/23 Unknown Rx lisinopril 10 mg tablet 5 mg (1/2 x 10 mg) PO DAILY #30 12/28/22 01/07/23 Unknown Rx tabs clindamycin HCl 300 mg capsule 300 mg PO Q8H 10 days #30 caps 01/07/23 01/07/23 Unknown Rx mupirocin 2 % topical ointment 1 applic topical BID #22 grams 01/07/23 01/07/23 Unknown Rx benzonatate 100 mg capsule 100 mg PO TID PRN cough #20 caps 03/30/23 Unknown Rx naproxen 500 mg tablet (Naprosyn) 500 mg PO BID PRN pain #20 tabs 03/30/23 Unknown Rx Allergies Allergy/AdvReac Type Severity Reaction Status Date / Time No Known Allergies Allergy Verified 07/30/23 16:55 PFSH Acute 2 PFSH: Medical History (Updated 07/30/23 @ 22:43 by Phyllis Moraes MD) Cellulitis Cellulitis of leg, right COVID-19 Hepatitis C Family History Mother Hypertension Family/Other Hypertension Denies family history of Diabetes CAD (coronary artery disease) Cancer Social History Smoking and tobacco/nicotine status: never used tobacco/nicotine Alcohol intake: former Substance/Drug Use: never Adopted: No Lives independently: Yes Household members: family Housing: House Vitals/I&O/Wt Last Vital Signs Temp 98.2 F 07/30/23 16:50 Pulse 98 07/30/23 19:34 Resp 22 H 07/30/23 19:34 BP 173/82 07/30/23 19:34 Pulse Ox 99 07/30/23 19:34 O2 Del Method Room Air 07/30/23 16:50 Weight last 48 hrs Weight 101.151 kg Physical Exam 2 Narrative: Awake and alert Anasarca Lower extremity multiple ulcers No active sign of cellulitis Nontender ascites Asterixis negative Awake and alert Nonfocal neuroexam Hemodynamic stable Currently on room air Data 07/30/23 17:45 07/30/23 17:45 A&P Assessment and plan (1) Hepatitis C: (2) Noncompliance: (3) Cirrhosis: (4) Abdominal ascites: Qualifiers: Ascites type: other type Qualified Code(s): R18.8 - Other ascites (5) Abdominal pain: Qualifiers: Abdominal location: generalized Qualified Code(s): R10.84 - Generalized abdominal pain Plan Ascites Liver cirrhosis No sign of hepatic encephalopathy I will start patient on Lasix and spironolactone Will add lactulose as well I will give her referral to see a examination grader in [place], patient does not seem to have a good grasp on her disease, she will need extensive counseling as well, she is currently living with her boyfriend, her daughter also lives in [place] Patient is stating that she has never been treated for hepatitis C She does not smoke or drink alcohol at this point Dr. New in the ER is trying to do diagnostic and therapeutic paracentesis. I will start patient on Lasix, spironolactone, lactulose, ceftriaxone 2 g, give her albumin Attestations 2 Medical Necessity Statement*: Anticipating discharge within 40 hours Diagnoses Hepatitis C B19.20 Noncompliance Z91.199 Cirrhosis K74.60 Abdominal ascites R18.8 Ascites type: other type Abdominal pain R10.84 Abdominal location: generalized
[2023-07-30 23:17] LABS: Appearance, Peritoneal Fluid Hazy (Clear); Color, Peritoneal Fluid Yellow (Pale Yellow)
[2023-07-30 23:18] LABS: Pathology Referral Yes
[2023-07-30 23:20] LABS: Mononuclear #, Pertinoneal Fl 0.164 10^3/uL; Polynuclear # Cells, Perit 0.096 10^3/uL
[2023-07-30 23:35] LABS: RBC Pertioneal Fluid 0 10^3/uL; WBC Peritoneal Fluid 0 /uL
[2023-07-30 23:40] LABS: Albumin Peritoneal Fluid 0.7 g/dL
[2023-07-30 23:49] VITALS: BP 184/84; PULSE 82; RESP 18; O2SAT 100
--- NOTE | 2023-07-30 23:50 | PC.NURSE ---
Dr New completed Paracentesis at 2340. 5L removed from patient. Filled bag that came in kit and 3 suction canisters with one emptied and reused. Dr New applied sterile bandage. Pt tolerated procedure well.
[2023-07-31] MEDS: albumin 25 G/100 ML BAG 60 G IV ×2 (00:32→08:37)
[2023-07-31 00:42] VITALS: BP 166/72; PULSE 82; RESP 16; TEMP 36.5; O2SAT 99
[2023-07-31 00:43] VITALS: BMI 35.1
[2023-07-31 00:48] LABS: Thyroid Stimulating Hormone 4.21 uIU/mL (0.27-4.20)
[2023-07-31 01:24] LABS: Vitamin B12 437 pg/mL (232-1245)
[2023-07-31 04:17] VITALS: BP 144/72; PULSE 86; RESP 15; TEMP 36.8; O2SAT 95
[2023-07-31 05:24] LABS: Basophils % 1.1 %; Eosinophils # 0.1 10^3/uL (0.0-0.8); Eosinophils % 3.6 %; Hematocrit 36.6 % (36-47); Lymphocytes # 0.9 10^3/uL (0.8-4.8); Mean Corpuscular HGB Conc 31.4 g/dL (30-55); Mean Corpuscular Hemoglobin 28.9 pg (27-33); Mean Platelet Volume 11.9 fL (7.4-10.4); Monocytes # 0.5 10^3/uL (0.2-0.9); Monocytes % 14.2 %; Neutrophils # 2.01 10^3/uL (1.8-7.7); Neutrophils % 55.8 %; Nucleated Red Blood Cells % 0 %; Platelet Count 83 10^3/cmm (157-399); Red Blood Count 3.98 10^6/uL (3.85-5.65); Red Cell Distribution Width 14.6 % (12.1-15.1)
[2023-07-31 05:42] LABS: Alanine Aminotransferase 17 U/L (0-33); Albumin Level 2.9 g/dL (3.5-5.2); Alkaline Phosphatase 120 U/L (35-105); Aspartate Amino Transferase 32 U/L (0-32); Blood Urea Nitrogen 6 mg/dL (6-20); Calcium 8.2 mg/dL (8.5-10.5); Carbon Dioxide 24 mmol/L (22-29); Chloride 109 mmol/L (98-107); Creatinine Clr Calc Pharmacy 239.5972; Globulin 3.2 g/dL (1.3-4.6); Glomerular Filtration Rate 230.1 mL/min (90-130); Glucose 93 mg/dL (65-115); Magnesium 1.8 mg/dL (1.7-2.3); Osmolality Calculated 285 mOsm/kg (285-295); Phosphorus 2.7 mg/dL (2.5-4.5); Sodium 139 mmol/L (136-145); Total Bilirubin 1.7 mg/dL (0.15-1.2); Total Protein 6.1 g/dL (6.6-8.7)
[2023-07-31 05:43] LABS: Anion Gap 9.7 (5-19); Potassium 3.7 mmol/L (3.5-5.1)
[2023-07-31 05:48] LABS: Estmated Average Glucose 74; Hemoglobin A1C 4.2 % (4.0-6.0)
[2023-07-31 05:51] VITALS: BMI 35.1
[2023-07-31 07:45] VITALS: PULSE 73; RESP 16; O2SAT 97
[2023-07-31 07:59] VITALS: BP 133/61; PULSE 84; RESP 17; TEMP 37; O2SAT 96
[2023-07-31] MEDS: spironolactone 25 mg Tablet 50 MG PO (09:34)
[2023-07-31] MEDS: lactulose oral liq 20 gm/30 mL UDC PO (09:35)
[2023-07-31] MEDS: FUROsemide 40 mg Tablet PO (09:35)
[2023-07-31] MEDS: potassium chloride ER 20 mEq Tablet 40 MEQ PO (09:35)
[2023-07-31] MEDS: pantoprazole 40 mg SDV IVP (09:36)
[2023-07-31] MEDS: cefTRIAXone 2,000 MG in sodium chloride 0.9% (plus) 50 ML 100 MG IV (10:28)
--- NOTE | 2023-07-31 11:47 | P.DS_ITS ---
Discharge Providers Date of Admission: 07/30/23 22:44 Date of Discharge: July 31, 2023 Attending Provider at Admission: Phyllis Moraes MD Attending Provider at Discharge: Nicci Goodman MD Primary Care Provider: MARCELINO Rodrigez Diagnoses at Discharge Discharge Diagnosis (1) Hepatitis C: Status: Acute (2) Noncompliance: Status: Acute (3) Cirrhosis: Status: Acute (4) Abdominal ascites: Status: Resolved Qualifiers: Ascites type: other type Qualified Code(s): R18.8 - Other ascites (5) Abdominal pain: Status: Resolved Qualifiers: Abdominal location: generalized Qualified Code(s): R10.84 - Generalized abdominal pain Reason for Visit Reason for Visit: abd pain, swelling Hospital Course Hospital Course Patient was admitted for ascites and had therapeutic thoracentesis performed in the ER with 5 L removed. She was subsequently given albumin. Discussed with patient regarding her medical condition. Apparently she has been diagnosed with liver cirrhosis 2 years ago and is positive for hepatitis C. However she was noncompliant and did not follow-up with tattoo identifier. She only saw them once and was given an array of blood test to do however did not get any testing done and did not follow-up. Now patient says that she would like to pursue further medical care. She was given GI follow-up at discharge. I started her on Lasix and spironolactone. Paracentesis was nondiagnostic. No SBP. Boyfriend at bedside. Explained to the patient in a lot of detail regarding her cirrhosis and answered all questions. Patient follow-up with primary care and GI outpatient. Discharged home in stable condition. Physical Exam Narrative: Awake and alert Anasarca Lower extremity multiple ulcers No active sign of cellulitis Nontender ascites Asterixis negative Awake and alert Nonfocal neuroexam Hemodynamic stable Currently on room air Discharge Data Studies Completed and Pending Completed Studies During Hospitalization Category Date Time Status CT abdomen pelvis w con* [id number] Stat Cat Scan 07/30/23 17:17 Completed Radiology Impressions Abdomen/Pelvis CT 07/30/23 17:17 IMPRESSION: 1. Interval increase in abdominal ascites and right pleural effusion now [id number] in size. Features of hepatic cirrhosis and portal hypertension again noted additionally including splenomegaly and varices. 2. New 8 mm hypodensity in the left uterus with underlying uterine inhomogeneity suggestive of fibroids again noted; ultrasound could be performed for more detailed assessment. 3. Minor findings described above. Laboratory Results WBC 3.60 10^3/uL (3.29-11.43) 07/31/23 05:00 RBC 3.98 10^6/uL (3.85-5.65) 07/31/23 05:00 Hgb 11.50 g/dL (11.27-16.99) 07/31/23 05:00 Hct 36.6 % (36-47) 07/31/23 05:00 MCV 92.0 fl (85-98) 07/31/23 05:00 MCH 28.9 pg (27-33) 07/31/23 05:00 MCHC 31.4 g/dL (30-55) 07/31/23 05:00 RDW 14.6 % (12.1-15.1) 07/31/23 05:00 Plt Count 83 10^3/cmm (157-399) L 07/31/23 05:00 MPV 11.9 fL (7.4-10.4) H 07/31/23 05:00 Neut % (Auto) 55.8 % 07/31/23 05:00 Lymph % (Auto) 25.0 % 07/31/23 05:00 [place] % (Auto) 14.2 % 07/31/23 05:00 Eos % (Auto) 3.6 % 07/31/23 05:00 Baso % (Auto) 1.1 % 07/31/23 05:00 Neut # (Auto) 2.01 10^3/uL (1.8-7.7) 07/31/23 05:00 Lymph # (Auto) 0.9 10^3/uL (0.8-4.8) 07/31/23 05:00 [place] # (Auto) 0.5 10^3/uL (0.2-0.9) 07/31/23 05:00 Eos # (Auto) 0.1 10^3/uL (0.0-0.8) 07/31/23 05:00 Baso # (Auto) 0.0 10^3/uL (0.0-0.1) 07/31/23 05:00 Nucleated RBC % (auto) 0 % 07/31/23 05:00 Nucleated RBCs # 0.0 /100WBC 07/31/23 05:00 PT 18.30 SECONDS (12.1-14.9) H 07/30/23 17:45 INR 1.47 (0.8-1.2) H 07/30/23 17:45 Sodium 139 mmol/L (136-145) 07/31/23 05:00 Potassium 3.7 mmol/L (3.5-5.1) 07/31/23 05:00 Chloride 109 mmol/L (98-107) H 07/31/23 05:00 Carbon Dioxide 24 mmol/L (22-29) 07/31/23 05:00 Anion Gap 9.7 (5-19) 07/31/23 05:00 BUN 6 mg/dL (6-20) 07/31/23 05:00 Creatinine 0.3 mg/dL (0.5-0.9) L 07/31/23 05:00 GFR Calculation 230.1 mL/min (90-130) H 07/31/23 05:00 Glucose 93 mg/dL (65-115) 07/31/23 05:00 Estimat Average Glucose 74 07/31/23 05:00 Hemoglobin A1c 4.2 % (4.0-6.0) 07/31/23 05:00 Calculated Osmolality 285 mOsm/kg (285-295) 07/31/23 05:00 Lactic Acid 1.1 mmol/L (0.5-2.2) 07/30/23 17:45 Calcium 8.2 mg/dL (8.5-10.5) L 07/31/23 05:00 Phosphorus 2.7 mg/dL (2.5-4.5) 07/31/23 05:00 Magnesium 1.8 mg/dL (1.7-2.3) 07/31/23 05:00 Total Bilirubin 1.7 mg/dL (0.15-1.2) H 07/31/23 05:00 AST 32 U/L (0-32) 07/31/23 05:00 ALT 17 U/L (0-33) 07/31/23 05:00 Alkaline Phosphatase 120 U/L (35-105) H 07/31/23 05:00 Ammonia 48 umol/L (11-51) 07/30/23 17:45 Total Protein 6.1 g/dL (6.6-8.7) L 07/31/23 05:00 Albumin 2.9 g/dL (3.5-5.2) L 07/31/23 05:00 Globulin 3.2 g/dL (1.3-4.6) 07/31/23 05:00 Lipase 29 U/L (13-60) 07/30/23 17:45 Tumor Marker AFP 8.0 ng/mL (0-8.3) 07/30/23 17:45 Vitamin B12 437 pg/mL (232-1245) 07/31/23 Unknown Procalcitonin 0.04 ng/mL (0-0.5) 07/30/23 17:45 TSH 4.21 uIU/mL (0.27-4.20) H 07/31/23 Unknown Urine Color Yellow (Yellow) 07/30/23 19:15 Urine Appearance Clear (CLEAR) 07/30/23 19:15 Urine pH 8 (5-7) H 07/30/23 19:15 Ur Specific [place] 1.005 (1.005-1.030) 07/30/23 19:15 Urine Protein Trace (Negative) 07/30/23 19:15 Urine Glucose (UA) Norm (Normal) 07/30/23 19:15 Urine Ketones Negative (Negative) 07/30/23 19:15 Urine Blood Trace (Negative) H 07/30/23 19:15 Urine Nitrate Negative (Negative) 07/30/23 19:15 Urine Bilirubin Neg (Negative) 07/30/23 19:15 Prot Sulfosalicylic Acd Negative (Negative) 07/30/23 19:15 Urine Urobilinogen 4 mg/dL (Negative) H 07/30/23 19:15 Ur Leukocyte Esterase 1+ (Negative) H 07/30/23 19:15 Urine RBC 0-4 /hpf (0-2) H 07/30/23 19:15 Urine WBC 5-10 /hpf (0-5) H 07/30/23 19:15 Ur Squamous Epith Cells 0-4 /hpf (0-5) H 07/30/23 19:15 Amorphous Sediment Not Reportable 07/30/23 19:15 Urine Bacteria 1+ /hpf (NONE) H 07/30/23 19:15 Peritoneal Color Yellow (Pale Yellow) 07/30/23 23:00 Peritoneal Appearance Hazy (Clear) 07/30/23 23:00 Peritoneal pH 8.0 07/30/23 23:00 Peritoneal WBC 0 /uL 07/30/23 23:00 Peritoneal RBC 0 10^3/uL 07/30/23 23:00 Periton Mononu # Auto 0.164 10^3/uL 07/30/23 23:00 Mononuclear WBCs % 63.100 % 07/30/23 23:00 Polynuclear WBCs % 36.900 % 07/30/23 23:00 Perit Polynuc WBCs # 0.096 10^3/uL 07/30/23 23:00 Peritoneal Diff Commnt Yes 07/30/23 23:00 Peritoneal Albumin 0.7 g/dL 07/30/23 23:00 Peritoneal LDH 47.0 U/L 07/30/23 23:00 Peritoneal Glucose 114.0 mg/dL 07/30/23 23:00 Vitals Last Vital Signs Temp 98.6 F 07/31/23 07:59 Pulse 84 07/31/23 07:59 Resp 17 07/31/23 07:59 BP 133/61 07/31/23 07:59 Pulse Ox 96 07/31/23 07:59 O2 Del Method Room Air 07/31/23 07:59 Discharge Plan Discharge Patient Disposition: Home Condition: Stable Prescriptions: New spironolactone 25 mg Tablet 50 mg PO DAILY Qty: 60 0RF Continued Lasix 20 mg tablet 20 mg PO DAILY Qty: 30 0RF Rx Instructions: pt states bid Discontinued lisinopril 10 mg tablet 5 mg PO DAILY Qty: 30 0RF furosemide [Lasix] 40 mg tablet 40 mg PO DAILY Qty: 10 0RF Discharge Orders: Discharge Order (Routine); Ordered 07/31/23 Ordered By: Nicci Goodman Referrals: Estrella Gerard FNP [Primary Care Provider] - 1-3 days (We have notified your physician's clinic of the need for a follow-up appointment to be scheduled. If you have not heard from them within the next 2 business days, please call them directly. ) Gage Ho MD [Referring] - 1-3 days (We have notified your physician's clinic of the need for a follow-up appointment to be scheduled. If you have not heard from them within the next 2 business days, please call them directly. ) Discharge Diet: Low Salt Discharge Activity: Resume usual activity Patient Instructions: Ascites, Spironolactone (By mouth), Hepatitis C, Cirrhosis of the Liver (ED), Abdominal Pain (ED), Opioid Safety Activity Restrictions/Additional Instructions: You need to be seen by a reaming machine operator/tattoo identifier for treatment of your hepatitis C and liver cirrhosis. He will require further workup and management. I have placed a referral for you. Please follow-up with your primary care doctor and the specialist referral for further care. Discharge Attestations Time Spent in Discharge Care*: greater than 30 min Quality Metrics Clinical Quality Measures [ No reported AMI, CVA or VTE this stay] Coding Level of Care Code Acute Code for Chg Fwd Diagnoses Hepatitis C B19.20 Noncompliance Z91.199 Cirrhosis K74.60 Abdominal ascites R18.8 Ascites type: other type Abdominal pain R10.84 Abdominal location: generalized
[2023-07-31 11:52] VITALS: BP 158/68; PULSE 82; RESP 18; TEMP 36.8; O2SAT 96
[2023-07-31 13:14] VITALS: BP 158/68; PULSE 82; RESP 18; TEMP 36.8; O2SAT 96
--- NOTE | 2023-07-31 13:58 | PC.NURSE ---
Discussed discharge with patient. Explained new medications, changed medications and continued medications. Discussed follow up appointments and referrals with patient. If the offices have not called within two business days to please call them. Showed the patient the numbers were on the discharge paperwork. Patient verbalized understanding.
== END 2023-07-31 13:20 | disposition home or self-care (01) ==
LOC: ER 17:23 → MEDSURG 23:02
PROVIDERS: Admitting Provider Internal Medicine; Emergency Provider Internal Medicine; PCP Nurse Practitioner Family; Visit Provider Internal Medicine
DX: B19.20 Unspecified viral hepatitis C without hepatic coma (principal); Z91.199 Patient's noncompliance with other medical treatment and regimen due to unspecified reason; K74.60 Unspecified cirrhosis of liver; R18.8 Other ascites; R10.84 Generalized abdominal pain; F15.11 Other stimulant abuse, in remission
CPT/HCPCS: 36415; 74177; 80053; 80503; 81001; 82042; 82105; 82140; 82607; 82945; 83036; 83605; 83615; 83690; 83735; 83986; 84100; 84145; 84443; 85025; 85610; 89050; 96365; 96375; 99285; C9113; G0378; J0360; J0696; P9046; P9047; Q9967

== ENCOUNTER → 2023-08-11 16:08 | Outpatient (BNVA) | payer BC, MEDICAID, SELFPAY | PROVIDERS: PCP Nurse Practitioner Family; Visit Provider Nurse Practitioner Family | DX: R93.5 Abnormal findings on diagnostic imaging of other abdominal regions, including retroperitoneum (principal); K74.60 Unspecified cirrhosis of liver; R79.89 Other specified abnormal findings of blood chemistry; Z79.899 Other long term (current) drug therapy; L03.119 Cellulitis of unspecified part of limb | CPT/HCPCS: 80053; 84439; 84443; 85025 ==

== ENCOUNTER 2023-08-27 08:25 | Outpatient (CLI) | payer BC, MEDICAID, SELFPAY ==
--- NOTE | 2023-08-27 09:30 | US_ITS ---
WS: [id number] US pelvic complete* [id number] HISTORY: Abnormality seen on CT 07/30/2023 COMPARISON: CT 07/30/2023. Patient refused transvaginal evaluation. This study is extremely limited and essentially nondiagnostic due to body habitus and transabdominal evaluation. Uterus: 7.4 cm x 4.5 cm x 3.5 cm. Poorly visualized uterus. Uterus is anteverted. Fibroid would be difficult to exclude. Endometrium: 0.6 cm. Poorly visualized. Right ovary: Not identified. RIGHT ovary was very small caliber on the recent CT. Left ovary: 1.8 cm x 1.5 cm x 1.3 cm. Poorly visualized. Moderate amount of free fluid in the pelvis. Ascites was noted on the prior CT also. US/US pelvic complete* [id number] IMPRESSION: 1. Patient refused transvaginal imaging. 2. Transabdominal imaging is essentially nondiagnostic. No fibroid identified. 3. Only limited evaluation of the endometrium. 4. Ascites.
== END 2023-08-27 08:26 | disposition home or self-care (01) ==
LOC: RAD 08:26
PROVIDERS: PCP Nurse Practitioner Family; Visit Provider Nurse Practitioner Family
DX: R93.5 Abnormal findings on diagnostic imaging of other abdominal regions, including retroperitoneum (principal); R18.8 Other ascites
CPT/HCPCS: 76856

== ENCOUNTER 2023-10-14 16:28 | Emergency (ER) | payer BC, MEDICAID, SELFPAY ==
--- NOTE | 2023-10-14 16:29 | ECG_ITS ---
[facility] Test Date: 2023-10-14 Pat Name: Sandy Ernandez Department: Room: Gender: Female Structural Rigger: : 1965 Requested By: Milton Simpson Order Number: [id number] Dano MD: Suzanne Rico M.D. Measurements Intervals [place] Rate: 80 P: 42 SC: 121 QRS: -1 QRSD: 80 T: 8 QT: 380 QTc: 440 Interpretive Statements SINUS RHYTHM WITH OCCASIONAL SUPRAVENTRICULAR PREMATURE COMPLEXES POSSIBLE ANTERIOR MYOCARDIAL INFARCTION , PROBABLY OLD [30 ms Q WAVE IN V3/V4, OR R < 0.2 mV IN V4] Diffuse nonspecific T wave change Compared to ECG 12/28/2022 17:13:06 Myocardial infarct finding now present T-wave abnormality no longer present Electronically Signed On 10-14-2023 23:24:55 CDT by Suzanne Rico M.D. [email or web address]
[2023-10-14 16:35] VITALS: BP 140/70; PULSE 75; RESP 20; TEMP 36.7; O2SAT 93
--- NOTE | 2023-10-14 16:50 | XRR_ITS ---
PROCEDURE INFORMATION: Exam: XR Chest Exam date and time: 10/14/2023 5:24 PM Age: 58 years old Clinical indication: Shortness of breath and other: Fluid build up; Prior surgery; Surgery date: 6+ months; Surgery type: Appy, gb; Additional info: Ascites TECHNIQUE: Imaging protocol: Radiologic exam of the chest. Views: 1 view. COMPARISON: CR XR chest 1V portable [id number] 03/30/2023 2:15 PM FINDINGS: Lungs: The lung volumes are low. No acute pneumonia or edema. Pleural spaces: Unremarkable. No pleural effusion. No pneumothorax. Heart/Mediastinum: Unremarkable. No cardiomegaly. Bones/joints: Unremarkable. XR/XR chest 1V portable [id number] IMPRESSION: There are no acute concerning abnormalities.
--- NOTE | 2023-10-14 16:51 | W.ED.ABDPA2 ---
HPI - Abdominal Pain General: Chief Complaint: Shortness of Breath/Dyspnea Stated Complaint: fluid bulid up SOB Time Seen by Provider: 10/14/23 16:39 Source: patient Mode of arrival: EMS Limitations: no limitations History of Present Illness: This patient with known history of cirrhosis presents to the emergency department because she has had increasing abdominal distention and discomfort and that she cannot catch her breath because she cannot take a deep breath. She denies any known fevers or chills. She states she has been taking the medications as prescribed. She denies any recent illness to include cough congestion. No other change in her usual consultation. States she had a previous paracentesis approximately 2 months ago with similar symptoms with significant improvement. Associated Symptoms: Denies chills, dysuria, fever(s) and syncope Review of Systems Const: Denies: fever(s) or chills ENMT: Denies: odynophagia, nasal discharge or nasal congestion Card: Denies: chest pain, palpitations, irregular heart rhythm, syncope or pre-syncope Resp: Denies: dyspnea, productive cough, non-productive cough or wheezing GI: Reports: abdominal pain : Denies: flank pain, difficulty voiding, dysuria or urinary frequency Musc: Reports: extremity swelling; Denies: neck pain, back pain or extremity pain Skin/Breast: Denies: rash or pruritus Neuro: Denies: headache(s), numbness in extremities or weakness in extremities Psych: Denies: anxiety or depression [facility] ED PFSH: Medical History Cellulitis Cellulitis of leg, right COVID-19 Hepatitis C Family History Mother Hypertension Family/Other Hypertension Denies family history of Diabetes CAD (coronary artery disease) Cancer Social History Smoking and tobacco/nicotine status: never used tobacco/nicotine Alcohol intake: former Substance/Drug Use: never Adopted: No Lives independently: Yes Household members: family Housing: House Physical Exam Narrative: EXAM NARRATIVE: Patient makes good eye contact. She answers questions in a goal-directed fashion without significant dyspnea. Const: COMMON NORMALS: no acute distress, patient oriented x3 and alert NUTRITIONAL APPEARANCE: overweight HENMT: COMMON NORMALS: normocephalic, Normal nasal mucous membranes and turbinates present, moist oral mucous membranes and oropharynx normal HEAD & SCALP: normocephalic NOSE: Normal nasal mucous membranes and turbinates present Eye: COMMON NORMALS: Equal, round and reactive pupils present, EOMs intact bilaterally and conjunctivae normal CONJUNCTIVA: Yes conjunctivae normal PUPIL: Yes Equal, round and reactive pupils present Neck/C-Spine: COMMON NORMALS: full ROM, no lymphadenopathy and no JVD Chest: COMMONS NORMALS: normal inspection of the chest and normal palpation of entire chest wall Resp: COMMON NORMALS: normal respiratory effort, No retractions and clear to auscultation bilaterally EFFORT & INSPECTION: Yes able to speak in complete sentences AUSCULTATION: clear to auscultation bilaterally OTHER: Her respiratory excursions are somewhat limited subjectively by her abdominal distention. Cardio: COMMON NORMALS: no JVD, regular rate, regular rhythm, No murmurs present (Cardio) and Peripheral pulses 2+ throughout RATE: regular rate RHYTHM: regular rhythm PERIPHERAL PULSES: Peripheral pulses 2+ throughout GI: INSPECTION: Yes abdominal distension OTHER: She has a distended abdomen with tense skin. She has shifting dullness to percussion. No peritoneal signs. Bedside ultrasound revealed significant amount of intra-abdominal fluid : COMMON NORMALS: Yes no CVA tenderness BLADDER/KIDNEY EXAM: Yes no CVA tenderness Back/Pelvis: COMMON NORMALS: no CVA tenderness, thoracic and lumbar spine normal to inspection and straight leg raise negative bilaterally Extremity: COMMON NORMALS: full ROM and no calf tenderness NARRATIVE EXTREMITY EXAM: Has bilateral nonpitting edema with some areas of dermal hypertrophy and thickened skin. Neuro: COMMON NORMALS: patient oriented x3, moves all extremities, no focal motor deficits and no sensory deficits noted SENSORIUM/ORIENTATION: Yes alert Skin: COMMON NORMALS: no rashes or lesions noted and turgor normal GENERAL SKIN EXAM: no rashes or lesions noted and turgor normal Procedures Paracentesis Time Out Performed: Yes Local Anesthetic: lidocaine 1% (Local infiltration) Fluid: clear (Straw-colored) and sent to lab for analysis Post Procedure Exam: awake, alert, normal BP, normal HR and normal SpO2 Patient Tolerated Procedure: well Complications: none (Patient tolerated procedure well without any perturbations in her vital signs.) Course Reevaluation(s): Reevaluation #1: After informed consent the patient underwent a therapeutic paracentesis. See procedure note. The technique was used as a pigtail catheter over a blunt needle. After ultrasound location of the large pocket in the right lower quadrant local infiltration of anesthesia a small skin betsy with a #11 scalpel and the pigtail catheter was introduced into the peritoneal cavity. Straw-colored fluid was returned and for liters of fluid were obtained and sent to the laboratory for analysis. Patient polyp tolerated procedure well. The puncture site was closed with skin adhesive and a dressing was applied. Time: 21:40 Reevaluation #2: Patient continues to do well post paracentesis with improved vital signs and markedly improved subjective sensation of feeling like she could not take a full inhalation. She was significantly improved. And stable to be discharged. All her laboratories are consistent with her previous laboratories. No evidence at this time of spontaneous bacterial peritonitis or other concerning condition. Time: 22:09 Vital Signs: Vital signs: Vital Signs Temperature 98.1 F 10/14/23 16:35 Pulse Rate 65 10/14/23 18:30 Respiratory Rate 20 H 10/14/23 20:08 Blood Pressure 145/87 10/14/23 20:08 Pulse Oximetry 97 10/14/23 20:08 Oxygen Delivery Me thod Room Air 10/14/23 18:30 MDM - Abdominal Pain Medical Decision Making Patient with known cirrhosis who develops recurrent ascites presented to the emergency department because of increasing abdominal distention which was affecting her normal respiratory pattern. He had no history of fevers chills or other symptoms per HPI. Clinical exam revealed marked abdominal distention with ascites. No other significant concerning findings on clinical examination. Screening laboratories were obtained which were in concert with previous laboratories. After informed consent consent from the patient the a sterile abdominal paracentesis was performed removing 4 L of straw-colored fluid. Peritoneal fluid analysis was reassuring without any significant elevation in white blood cell count over cut off normally would be of increased concern for spontaneous bacterial peritonitis. The patient continued to be subjectively and objectively improved and stable. She was observed in the emergency department for period of time after paracentesis is being discharged home with usual follow-up care. Medical Records Previous elevations in bilirubin and transaminases. Lab Data I reviewed the patient's lab results. 10/14/23 17:48 10/14/23 18:07 Labs/Radiology: Radiology Impressions Chest X-Ray 10/14/23 16:50 IMPRESSION: There are no acute concerning abnormalities. Laboratory Results WBC 4.39 10^3/uL (3.29-11.43) 10/14/23 17:48 RBC 4.38 10^6/uL (3.85-5.65) 10/14/23 17:48 Hgb 12.90 g/dL (11.27-16.99) 10/14/23 17:48 Hct 41.1 % (36-47) 10/14/23 17:48 MCV 93.8 fl (85-98) 10/14/23 17:48 MCH 29.5 pg (27-33) 10/14/23 17:48 MCHC 31.4 g/dL (30-55) 10/14/23 17:48 RDW 15.0 % (12.1-15.1) 10/14/23 17:48 Plt Count 114 10^3/cmm (157-399) L 10/14/23 17:48 MPV 12.5 fL (7.4-10.4) H 10/14/23 17:48 Neut % (Auto) 61.7 % 10/14/23 17:48 Lymph % (Auto) 20.3 % 10/14/23 17:48 [place] % (Auto) 13.0 % 10/14/23 17:48 Eos % (Auto) 3.4 % 10/14/23 17:48 Baso % (Auto) 1.1 % 10/14/23 17:48 Neut # (Auto) 2.71 10^3/uL (1.8-7.7) 10/14/23 17:48 Lymph # (Auto) 0.9 10^3/uL (0.8-4.8) 10/14/23 17:48 [place] # (Auto) 0.6 10^3/uL (0.2-0.9) 10/14/23 17:48 Eos # (Auto) 0.2 10^3/uL (0.0-0.8) 10/14/23 17:48 Baso # (Auto) 0.1 10^3/uL (0.0-0.1) 10/14/23 17:48 Nucleated RBC % (auto) 0 % 10/14/23 17:48 Nucleated RBCs # 0.0 /100WBC 10/14/23 17:48 PT 19.70 SECONDS (12.1-14.9) H 10/14/23 18:07 INR 1.61 (0.8-1.2) H 10/14/23 18:07 Sodium 138 mmol/L (136-145) 10/14/23 18:07 Potassium 4.0 mmol/L (3.5-5.1) 10/14/23 18:07 Chloride 106 mmol/L (98-107) 10/14/23 18:07 Carbon Dioxide 25 mmol/L (22-29) 10/14/23 18:07 Anion Gap 11.0 (5-19) 10/14/23 18:07 BUN 6 mg/dL (6-20) 10/14/23 18:07 Creatinine 0.4 mg/dL (0.5-0.9) L 10/14/23 18:07 GFR Calculation 165.1 mL/min (90-130) H 10/14/23 18:07 Glucose 94 mg/dL (65-115) 10/14/23 18:07 Calculated Osmolality 283 mOsm/kg (285-295) L 10/14/23 18:07 Calcium 7.9 mg/dL (8.5-10.5) L 10/14/23 18:07 Total Bilirubin 2.1 mg/dL (0.15-1.2) H 10/14/23 18:07 AST 111 U/L (0-32) H 10/14/23 18:07 ALT 57 U/L (0-33) H 10/14/23 18:07 Alkaline Phosphatase 140 U/L (35-105) H 10/14/23 18:07 Total Protein 6.5 g/dL (6.6-8.7) L 10/14/23 18:07 Albumin 2.5 g/dL (3.5-5.2) L 10/14/23 18:07 Globulin 4.0 g/dL (1.3-4.6) 10/14/23 18:07 Peritoneal Color Yellow (Pale Yellow) 10/14/23 21:24 Peritoneal Appearance Clear (Clear) 10/14/23 21:24 Peritoneal WBC 108 /uL 10/14/23 21:24 Peritoneal RBC 0 10^3/uL 10/14/23 21:24 Periton Mononu # Auto 0.086 10^3/uL 10/14/23 21:24 Mononuclear WBCs % 79.700 % 10/14/23 21:24 Polynuclear WBCs % 20.300 % 10/14/23 21:24 Perit Polynuc WBCs # 0.022 10^3/uL 10/14/23 21:24 Peritoneal Diff Commnt Yes 10/14/23 21:24 All radiology interpretation(s) finalized by discharge Discharge Plan Discharge Patient Disposition: Home Clinical Impression: Abdominal ascites Condition: Stable Prescriptions: No Action cephalexin 250 mg capsule 250 mg PO Q8H 7 Days Qty: 21 0RF spironolactone 25 mg Tablet 50 mg PO DAILY Qty: 60 0RF Lasix 20 mg tablet 20 mg PO DAILY Qty: 30 0RF Rx Instructions: pt states bid Discharge Orders: Discharge ED (Routine); Ordered 10/14/23 Ordered By: Milton Simpson Referrals: Estrella Gerard FNP [Primary Care Provider] - Discharge Diet: Low Salt Discharge Activity: Increase activity as tolerated Patient Instructions: Opioid Safety, Pain Management Activity Restrictions/Additional Instructions: We have removed fluid from your abdomen which is likely causing much if not all of your discomfort. You should continue your usual medications and follow-up with your doctor as scheduled. If you develop fever increasing abdominal pain or other concerns at any time you are welcome to return to the emergency department immediately for reevaluation. Coding Level of Care Code ED Manager [employer] for Vera Freeman
[2023-10-14 17:07] VITALS: PULSE 73; O2SAT 97
[2023-10-14 17:58] LABS: Basophils # 0.1 10^3/uL (0.0-0.1); Basophils % 1.1 %; Eosinophils # 0.2 10^3/uL (0.0-0.8); Eosinophils % 3.4 %; Hematocrit 41.1 % (36-47); Lymphocytes # 0.9 10^3/uL (0.8-4.8); Lymphocytes % 20.3 %; Mean Corpuscular HGB Conc 31.4 g/dL (30-55); Mean Corpuscular Hemoglobin 29.5 pg (27-33); Mean Corpuscular Volume 93.8 fl (85-98); Mean Platelet Volume 12.5 fL (7.4-10.4); Monocytes # 0.6 10^3/uL (0.2-0.9); Neutrophils # 2.71 10^3/uL (1.8-7.7); Neutrophils % 61.7 %; Nucleated Red Blood Cells % 0 %; Platelet Count 114 10^3/cmm (157-399); Red Blood Count 4.38 10^6/uL (3.85-5.65); White Blood Count 4.39 10^3/uL (3.29-11.43)
[2023-10-14 18:00] VITALS: BP 132/73; PULSE 72; O2SAT 96
[2023-10-14 18:30] VITALS: BP 140/89; PULSE 65; O2SAT 99
[2023-10-14 18:40] LABS: Alanine Aminotransferase 57 U/L (0-33); Albumin Level 2.5 g/dL (3.5-5.2); Alkaline Phosphatase 140 U/L (35-105); Aspartate Amino Transferase 111 U/L (0-32); Blood Urea Nitrogen 6 mg/dL (6-20); Calcium 7.9 mg/dL (8.5-10.5); Carbon Dioxide 25 mmol/L (22-29); Chloride 106 mmol/L (98-107); Creatinine Clr Calc Pharmacy 174.7495; Glomerular Filtration Rate 165.1 mL/min (90-130); Glucose 94 mg/dL (65-115); Osmolality Calculated 283 mOsm/kg (285-295); Sodium 138 mmol/L (136-145); Total Bilirubin 2.1 mg/dL (0.15-1.2); Total Protein 6.5 g/dL (6.6-8.7)
[2023-10-14 18:41] LABS: INR 1.61 (0.8-1.2)
[2023-10-14 20:08] VITALS: BP 145/87; RESP 20; O2SAT 97
[2023-10-14 21:48] LABS: Color, Peritoneal Fluid Yellow (Pale Yellow); Cyto Order Verification No Order
[2023-10-14 21:49] LABS: Appearance, Peritoneal Fluid Clear (Clear); Pathology Referral Yes
[2023-10-14 22:02] LABS: Mononuclear #, Pertinoneal Fl 0.086 10^3/uL; Polynuclear # Cells, Perit 0.022 10^3/uL; RBC Pertioneal Fluid 0 10^3/uL; WBC Peritoneal Fluid 108 /uL
== END 2023-10-14 22:42 | disposition home or self-care (01) ==
PROVIDERS: Emergency Provider Emergency Medicine; PCP Nurse Practitioner Family
DX: R18.8 Other ascites (principal); Z86.19 Personal history of other infectious and parasitic diseases
CPT/HCPCS: 36415; 49082; 71045; 80053; 80503; 85025; 85610; 89050; 93005; 99285

== ENCOUNTER 2023-10-20 20:38 | Emergency (ER) | payer BC, MEDICAID, SELFPAY ==
[2023-10-20 20:46] VITALS: BP 146/84; PULSE 73; RESP 20; TEMP 36.6; O2SAT 99
--- NOTE | 2023-10-20 21:31 | XRR_ITS ---
PROCEDURE INFORMATION: Exam: XR Chest Exam date and time: 10/20/2023 10:01 PM Age: 58 years old Clinical indication: Shortness of breath; Additional info: SOB TECHNIQUE: Imaging protocol: Radiologic exam of the chest. Views: 1 view. COMPARISON: CR (CHEST, ) 10/14/2023 5:24 PM FINDINGS: Lungs: The lungs are clear. No pulmonary consolidation. Pleural spaces: No pleural effusion or pneumothorax. Heart/Mediastinum: The cardiomediastinal silhouette is within normal limits. Bones/joints: No acute osseous abnormalities are seen. XR/XR chest 1V portable [id number] IMPRESSION: No acute cardiopulmonary disease.
[2023-10-20 22:15] LABS: Basophils # 0.1 10^3/uL (0.0-0.1); Basophils % 0.9 %; Eosinophils # 0.2 10^3/uL (0.0-0.8); Eosinophils % 2.9 %; Hematocrit 41.2 % (36-47); Lymphocytes # 1.1 10^3/uL (0.8-4.8); Lymphocytes % 20.4 %; Mean Corpuscular HGB Conc 31.8 g/dL (30-55); Mean Corpuscular Hemoglobin 29.4 pg (27-33); Mean Corpuscular Volume 92.4 fl (85-98); Monocytes # 0.6 10^3/uL (0.2-0.9); Monocytes % 11.6 %; Neutrophils # 3.46 10^3/uL (1.8-7.7); Neutrophils % 63.8 %; Nucleated Red Blood Cells % 0 %; Platelet Count 107 10^3/cmm (157-399); Red Blood Count 4.46 10^6/uL (3.85-5.65); Red Cell Distribution Width 15.1 % (12.1-15.1); White Blood Count 5.43 10^3/uL (3.29-11.43)
[2023-10-20 22:35] LABS: Albumin Level 2.5 g/dL (3.5-5.2); Alkaline Phosphatase 132 U/L (35-105); Anion Gap 12.7 (5-19); Aspartate Amino Transferase 78 U/L (0-32); Blood Urea Nitrogen 9 mg/dL (6-20); Calcium 7.6 mg/dL (8.5-10.5); Carbon Dioxide 22 mmol/L (22-29); Chloride 109 mmol/L (98-107); Creatinine Clr Calc Pharmacy 139.7996; Globulin 3.7 g/dL (1.3-4.6); Glomerular Filtration Rate 127.6 mL/min (90-130); Glucose 119 mg/dL (65-115); Lipase 34 U/L (13-60); Osmolality Calculated 290 mOsm/kg (285-295); Potassium 3.7 mmol/L (3.5-5.1); Sodium 140 mmol/L (136-145); Total Bilirubin 1.7 mg/dL (0.15-1.2); Total Protein 6.2 g/dL (6.6-8.7)
[2023-10-20 22:40] VITALS: BP 173/82; PULSE 70; RESP 17; O2SAT 97
[2023-10-20 22:46] LABS: Alanine Aminotransferase 44 U/L (0-33)
[2023-10-20 23:00] VITALS: BP 153/97; PULSE 76; RESP 16; O2SAT 95
--- NOTE | 2023-10-20 23:04 | W.ED.SOB ---
HPI - SOB/Dyspnea General: Chief Complaint: Shortness of Breath/Dyspnea Stated Complaint: n/v, sob, abd distension Time Seen by Provider: 10/20/23 22:45 History of Present Illness: HPI Narrative: Patient presents to the ER with complaints of shortness of breath due to abdominal swelling secondary to ascites. Patient says that think she is needing another paracentesis. Patient had a paracentesis about 5 days ago with a drained off 4 L of fluid and she thinks they need to drain more. Review of Systems General: Reports: 10 or more systems reviewed and unremarkable except in HPI and below PFSH ED PFSH: Medical History Cellulitis Cellulitis of leg, right COVID-19 Hepatitis C Family History Mother Hypertension Family/Other Hypertension Denies family history of Diabetes CAD (coronary artery disease) Cancer Social History Smoking and tobacco/nicotine status: never used tobacco/nicotine Alcohol intake: former Substance/Drug Use: never Adopted: No Lives independently: Yes Household members: family Housing: House Physical Exam Const: COMMON NORMALS: no acute distress, average body habitus, patient oriented x3, no limitations, healthy appearing, alert and well nourished HENMT: COMMON NORMALS: normocephalic, atraumatic, hearing grossly normal bilaterally, external ears normal, Normal external nose present and moist oral mucous membranes HEAD & SCALP: normocephalic and atraumatic NOSE: Normal external nose present EXTERNAL EAR: Yes external ears normal Neck/C-Spine: COMMON NORMALS: no JVD Chest: COMMONS NORMALS: normal inspection of the chest and normal palpation of entire chest wall Resp: COMMON NORMALS: normal respiratory effort, No retractions, No use of accessory muscles and clear to auscultation bilaterally AUSCULTATION: clear to auscultation bilaterally Cardio: COMMON NORMALS: no JVD, regular rate, regular rhythm, S1 normal heart sound present, S2 normal heart sound present, No gallops present (Cardio), No clicks present (Cardio), No murmurs present (Cardio) and No rub (Cardio) RATE: regular rate RHYTHM: regular rhythm HEART SOUNDS: S1 normal heart sound present and S2 normal heart sound present GI: COMMON NORMALS: Soft to palpation, non-tender, No hepatosplenomegaly present and no masses; negative for Normal to inspection, nondistended, normoactive bowel sounds present (Mildly distended but still soft to palpation with good bowel sounds) PALPATION: Yes Soft to palpation and Yes No hepatosplenomegaly present Neuro: COMMON NORMALS: patient oriented x3 SENSORIUM/ORIENTATION: Yes alert Course Vital Signs: Vital signs: Vital Signs Temperature 97.8 F 10/20/23 20:46 Pulse Rate 76 10/20/23 23:00 Respiratory Rate 16 10/20/23 23:00 Blood Pressure 153/97 10/20/23 23:00 Pulse Oximetry 95 10/20/23 23:00 Oxygen Delivery Me thod Room Air 10/20/23 23:00 MDM - SOB/Dyspnea Medical Decision Making Lab work was reviewed CBC CMP lipase chest x-ray all stable for the patient. These results was discussed with the patient. Patient has appointment with her specialist in the morning. Patient will just wait to talk to him about her ascites. Patient be discharged. Lab Data 10/20/23 21:57 10/20/23 21:57 Labs/Radiology: Radiology Impressions Chest X-Ray 10/20/23 21:31 IMPRESSION: No acute cardiopulmonary disease. Laboratory Results WBC 5.43 10^3/uL (3.29-11.43) 10/20/23 21:57 RBC 4.46 10^6/uL (3.85-5.65) 10/20/23 21:57 Hgb 13.10 g/dL (11.27-16.99) 10/20/23 21:57 Hct 41.2 % (36-47) 10/20/23 21:57 MCV 92.4 fl (85-98) 10/20/23 21:57 MCH 29.4 pg (27-33) 10/20/23 21:57 MCHC 31.8 g/dL (30-55) 10/20/23 21:57 RDW 15.1 % (12.1-15.1) 10/20/23 21:57 Plt Count 107 10^3/cmm (157-399) L 10/20/23 21:57 MPV 12.0 fL (7.4-10.4) H 10/20/23 21:57 Neut % (Auto) 63.8 % 10/20/23 21:57 Lymph % (Auto) 20.4 % 10/20/23 21:57 Pershing % (Auto) 11.6 % 10/20/23 21:57 Eos % (Auto) 2.9 % 10/20/23 21:57 Baso % (Auto) 0.9 % 10/20/23 21:57 Neut # (Auto) 3.46 10^3/uL (1.8-7.7) 10/20/23 21:57 Lymph # (Auto) 1.1 10^3/uL (0.8-4.8) 10/20/23 21:57 Pershing # (Auto) 0.6 10^3/uL (0.2-0.9) 10/20/23 21:57 Eos # (Auto) 0.2 10^3/uL (0.0-0.8) 10/20/23 21:57 Baso # (Auto) 0.1 10^3/uL (0.0-0.1) 10/20/23 21:57 Nucleated RBC % (auto) 0 % 10/20/23 21:57 Nucleated RBCs # 0.0 /100WBC 10/20/23 21:57 Sodium 140 mmol/L (136-145) 10/20/23 21:57 Potassium 3.7 mmol/L (3.5-5.1) 10/20/23 21:57 Chloride 109 mmol/L (98-107) H 10/20/23 21:57 Carbon Dioxide 22 mmol/L (22-29) 10/20/23 21:57 Anion Gap 12.7 (5-19) 10/20/23 21:57 BUN 9 mg/dL (6-20) 10/20/23 21:57 Creatinine 0.5 mg/dL (0.5-0.9) 10/20/23 21:57 GFR Calculation 127.6 mL/min (90-130) 10/20/23 21:57 Glucose 119 mg/dL (65-115) H 10/20/23 21:57 Calculated Osmolality 290 mOsm/kg (285-295) 10/20/23 21:57 Calcium 7.6 mg/dL (8.5-10.5) L 07/17/24 21:57 Total Bilirubin 1.7 mg/dL (0.15-1.2) H 10/20/23 21:57 AST 78 U/L (0-32) H 10/20/23 21:57 ALT 44 U/L (0-33) H 10/20/23 21:57 Alkaline Phosphatase 132 U/L (35-105) H 10/20/23 21:57 Total Protein 6.2 g/dL (6.6-8.7) L 10/20/23 21:57 Albumin 2.5 g/dL (3.5-5.2) L 10/20/23 21:57 Globulin 3.7 g/dL (1.3-4.6) 10/20/23 21:57 Lipase 34 U/L (13-60) 10/20/23 21:57 All radiology interpretation(s) finalized by discharge Discharge Plan Discharge Patient Disposition: Home Clinical Impression: Shortness of breath, Abdominal ascites Condition: Stable Prescriptions: No Action cephalexin 250 mg capsule 250 mg PO Q8H 7 Days Qty: 21 0RF spironolactone 25 mg Tablet 50 mg PO DAILY Qty: 60 0RF Lasix 20 mg tablet 20 mg PO DAILY Qty: 30 0RF Rx Instructions: pt states bid Discharge Orders: Discharge ED (Routine); Ordered 10/20/23 Ordered By: Albert Tillman Referrals: Estrella Gerard FNP [Primary Care Provider] - 1 week Patient Instructions: Ascites (ED), Shortness of Breath (ED) Activity Restrictions/Additional Instructions: Your evaluation ER was unremarkable. Please keep your appointment with your specialist tomorrow and talk with them about your ascites. Otherwise follow-up with your family practice physician within next 7 days for further evaluation and treatment as needed. Coding Level of Care Code ED Web[employer] Developer for Vera Freeman
== END 2023-10-20 23:17 | disposition home or self-care (01) ==
PROVIDERS: Emergency Medicine; Emergency Provider Emergency Medicine; PCP Nurse Practitioner Family
DX: R06.02 Shortness of breath (principal); R18.8 Other ascites; Z86.19 Personal history of other infectious and parasitic diseases
CPT/HCPCS: 36415; 71045; 80053; 83690; 85025; 99284

== ENCOUNTER 2023-10-27 17:59 | Emergency (ER) | payer BC, MEDICAID, SELFPAY ==
[2023-10-27 18:07] VITALS: BP 158/78; PULSE 80; RESP 24; TEMP 36.8; O2SAT 98
[2023-10-27 18:27] VITALS: BP 148/74; PULSE 71; RESP 17; O2SAT 98
--- NOTE | 2023-10-27 18:44 | ED_ITS ---
HPI - Abdominal Pain General: Chief Complaint: Abdominal Pain Stated Complaint: SOB too much fluid on stomach wants drained Time Seen by Provider: 10/27/23 18:18 History of Present Illness: Patient presents to the ER with abdominal pain swelling aggressing over the last 2 weeks. Patient says she had a drained here about a month ago. She was seen here about a week ago and was told we do not do any draining's or paracentesis usually after hours or on the weekends she said should have her GI doc set it up they never set it up. Patient is back here with worsening swelling and shortness of breath. Again there is no one here to do her paracentesis at this time. We will set her up on an outpatient basis. Patient is okay of this. Review of Systems General: Reports: 10 or more systems reviewed and unremarkable except in HPI and below PFSH ED PFSH: Medical History Cellulitis Cellulitis of leg, right COVID-19 Hepatitis C Family History Mother Hypertension Family/Other Hypertension Denies family history of Diabetes CAD (coronary artery disease) Cancer Social History Smoking and tobacco/nicotine status: never used tobacco/nicotine Alcohol intake: former Substance/Drug Use: never Adopted: No Lives independently: Yes Household members: family Housing: House Physical Exam Const: COMMON NORMALS: no acute distress, average body habitus, patient oriented x3, no limitations, healthy appearing, alert and well nourished HENMT: COMMON NORMALS: normocephalic, atraumatic, hearing grossly normal bilaterally, external ears normal, Normal external nose present and moist oral mucous membranes HEAD & SCALP: normocephalic and atraumatic NOSE: Normal external nose present EXTERNAL EAR: Yes external ears normal Neck/C-Spine: COMMON NORMALS: no JVD Chest: COMMONS NORMALS: normal inspection of the chest and normal palpation of entire chest wall Resp: COMMON NORMALS: normal respiratory effort, No retractions, No use of accessory muscles and clear to auscultation bilaterally AUSCULTATION: clear to auscultation bilaterally Cardio: COMMON NORMALS: no JVD, regular rate, regular rhythm, S1 normal heart sound present, S2 normal heart sound present, No gallops present (Cardio), No clicks present (Cardio) and No murmurs present (Cardio) RATE: regular rate RHYTHM: regular rhythm HEART SOUNDS: S1 normal heart sound present and S2 normal heart sound present GI: COMMON NORMALS: Normal to inspection, nondistended, normoactive bowel sounds present, Soft to palpation, non-tender, No hepatosplenomegaly present and no masses PALPATION: Yes Soft to palpation and Yes No hepatosplenomegaly present Neuro: COMMON NORMALS: patient oriented x3 SENSORIUM/ORIENTATION: Yes alert Course Vital Signs: Vital signs: Vital Signs Temperature 98.2 F 10/27/23 18:07 Pulse Rate 71 10/27/23 18:27 Respiratory Rate 17 10/27/23 18:27 Blood Pressure 148/74 10/27/23 18:27 Pulse Oximetry 98 10/27/23 18:27 Oxygen Delivery Me thod Room Air 10/27/23 18:07 MDM - Abdominal Pain Medical Decision Making We will arrange outpatient paracentesis for the patient. Order was placed. Patient was notified of this and will avoid call in the morning. Differential Diagnosis Likely abdominal pain Medical Records I reviewed the patient's medical records. Lab Data I reviewed the patient's lab results. No radiology studies performed this visit Discharge Plan Discharge Patient Disposition: Home Clinical Impression: Abdominal ascites Qualifiers: Ascites type: other type Qualified Code(s): R18.8 - Other ascites Condition: Stable Prescriptions: No Action cephalexin 250 mg capsule 250 mg PO Q8H 7 Days Qty: 21 0RF spironolactone 25 mg Tablet 50 mg PO DAILY Qty: 60 0RF Lasix 20 mg tablet 20 mg PO DAILY Qty: 30 0RF Rx Instructions: pt states bid Discharge Orders: Discharge ED (Routine); Ordered 10/27/23 Ordered By: Albert Tillman Referrals: Estrella Gerard FNP [Primary Care Provider] - 1 week Patient Instructions: Ascites (ED) Activity Restrictions/Additional Instructions: And outpatient orders been placed for your therapeutic paracentesis or draining of your fluid. You should be receiving a call tomorrow morning from case finishing machine adjuster or scheduling to have this arranged. If you worsen in the meantime please feel free to return back to the ER. Coding Level of Care Code ED Commodities Trader for Vera Freeman
[2023-10-27 19:11] VITALS: BP 156/84; PULSE 74; O2SAT 97
== END 2023-10-27 19:05 | disposition home or self-care (01) ==
PROVIDERS: Emergency Provider Emergency Medicine; PCP Nurse Practitioner Family
DX: R18.8 Other ascites (principal); Z86.19 Personal history of other infectious and parasitic diseases
CPT/HCPCS: 99281

== ENCOUNTER 2023-11-01 09:45 | Day surgery (SDC) | payer BC, MEDICAID, SELFPAY ==
[2023-11-01 09:56] VITALS: BP 142/69; PULSE 81; RESP 16; TEMP 36.3; O2SAT 98
--- NOTE | 2023-11-01 09:59 | US_ITS ---
WS: [id number] Abdominal ultrasound, limited. History: Evaluate for ascites. Comparison: 05/28/2021 All 4 quadrants are imaged by ultrasound to evaluate for ascites. There is a small amount of fluid ve ry deep within the peritoneal cavity. The largest collection is in the LEFT abdomen. There is also santos wel coursing through majority of the fluid. The most significant finding is marked edema within the subcutaneous abdominal wall. There is also ma rked fluid retention within the lower extremities. Patient is complaining of pain but I believe major ity of the discomfort is related to the subcutaneous edema. US/US abdomen lmt fluid [id number] IMPRESSION: 1. Small amount of ascites identified. 2. Majority of the fluid is subcutaneous within the abdominal wall and also th e lower extremities. Recommend evaluation by patient's primary care to evaluate fluid overload status. 3. Consider 1 to 2-week follow-up ultrasound evaluation. The ascites may incre ased over time but on today's exam and insufficient for paracentesis.
== END 2023-11-01 11:56 | disposition home or self-care (01) ==
PROVIDERS: Radiology Diagnostic Radiology; PCP Nurse Practitioner Family; Visit Provider Emergency Medicine
DX: R18.8 Other ascites (principal)
CPT/HCPCS: 49083; 76705

== ENCOUNTER 2023-11-11 14:12 | Emergency (ER) | payer BC, MEDICAID, SELFPAY ==
[2023-11-11] VITALS (11 sets, daily range): BP systolic 119–158; BP diastolic 60–79; PULSE 67–80; RESP 24–97; TEMP 36.7; O2SAT 96–99
--- NOTE | 2023-11-11 14:21 | ECG_ITS ---
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 Measurements Intervals [place] Rate: 72 P: 46 MO: 150 QRS: 0 QRSD: 78 T: 20 QT: 379 QTc: 415 Interpretive Statements SINUS RHYTHM POSSIBLE ANTERIOR MYOCARDIAL INFARCTION , PROBABLY OLD [30 ms Q WAVE IN V3/V4, OR R < 0.2 mV IN V4] Compared to ECG 10/14/2023 16:29:00 T-wave abnormality no longer present Myocardial infarct finding still present Electronically Signed On 11-11-2023 16:50:53 CDT by Felix King M.D. [email or web address]
--- NOTE | 2023-11-11 14:44 | XRR_ITS ---
PROCEDURE INFORMATION: Exam: XR Chest Exam date and time: 11/11/2023 3:07 PM Age: 58 years old Clinical indication: Shortness of breath; Additional info: Dyspnea TECHNIQUE: Imaging protocol: Radiologic exam of the chest. Views: 1 view. COMPARISON: CR (CHEST, ) 10/20/2023 10:01 PM FINDINGS: Lungs: Lung volumes are decreased. There is indistinct ground-glass opacification lower lung zones with peribronchial cuffing suggestive of mild pulmonary vascular congestion. No nivia pulmonary edema or consolidating infiltrates detected. Pleural spaces: Unremarkable. No pleural effusion. No pneumothorax. Heart/Mediastinum: Heart appears mildly enlarged and accentuated by decreased lung volumes. Pulmonary vascular redistribution indicating elevated central venous pressure. Bones/joints: Unremarkable for age. XR/XR chest 1V portable [id number] IMPRESSION: Mild cardiomegaly with evidence of mild pulmonary congestion lower lung zones.
--- NOTE | 2023-11-11 15:27 | ED_ITS ---
Documented by User: Sergei Nieto DO 11/12/23 05:58 HPI - SOB/Dyspnea 2 General: Chief Complaint: Shortness of Breath/Dyspnea Stated Complaint: swelling/SOB Time Seen by Provider: 11/11/23 15:21 History of Present Illness: HPI Narrative: 58-year-old female presents emergency ro om complaining of shortness of breath. Patient has a history of cirrhosis with significant swelling in her abdomen she recently had a ultrasound to evaluate for possible paracentesis but there is very little fluid left. She has seen GI. She denies any fever sweats or chills. She has some mild orthopnea she has not noticed any increase swelling in her legs beyond her baseline. She is on Lasix and spironolactone and continues to take those. She denies any chest pain fever sweats or chills or productive cough Associated symptoms: Reports orthopnea; Deny abdominal pain, chest pain or fever(s) Review of Systems 2 Const: Denies: fever(s) or chills Card: Reports: swelling of feet/ankles (Chronic baseline unchanged), dyspnea on exertion and orthopnea; Denies: chest pain Resp: Reports: dyspnea GI: Denies: abdominal pain : Denies: dysuria, urinary frequency or urinary urgency Musc: Denies: neck pain or back pain Skin/Breast: Denies: rash PFSH ED 2 PFSH: Medical History Cellulitis Cellulitis of leg, right COVID-19 Hepatitis C Family History Mother Hypertension Family/Other Hypertension Denies family history of Diabetes CAD (coronary artery disease) Cancer Social History Smoking and tobacco/nicotine status: never used tobacco/nicotine Alcohol intake: former Substance/Drug Use: never Adopted: No Lives independently: Yes Household members: family Housing: House Physical Exam 2 Const: GENERAL APPEARANCE: cooperative and comfortable O RIENTATION/CONSCIOUSNESS: Yes awake HENMT: COMMON NORMALS: normocephalic, atraumatic and hearing grossly normal bilaterally HEAD & SCALP: normocephalic and atraumatic Resp: COMMON NORMALS: normal respiratory effort, No retractions, No use of accessory muscles and clear to auscultation bilaterally AUSCULTATION: clear to auscultation bilaterally Cardio: COMMON NORMALS: regular rate, regular rhythm and No murmurs present (Cardio) RATE: regular rate RHYTHM: regular rhythm GI: COMMON NORMALS: Soft to palpation and No hepatosplenomegaly present A USCULTATION: Yes normoactive bowel sounds PALPATION: Yes Soft to palpation, No Tenderness to palpation present (GI), No Guarding due to palpation present (GI) and Yes No hepatosplenomegaly present Extremity: COMMON NORMALS: normal to inspection, capillary refill normal, no clubbing, cyanosis or edema, no calf tenderness and no pedal edema Skin: COMMON NORMALS: no rashes or lesions noted GENERAL SKIN EXAM: no rashes or lesions noted Course 2 Vital Signs: Vital signs: Vital Signs Temperature 98.0 F 11/11/23 14:17 Pulse Rate 69 11/11/23 18:41 Respiratory Rate 97 H 11/11/23 16:15 Blood Pressure 132/71 11/11/23 18:41 Pulse Oximetry 99 11/11/23 18:41 Oxygen Delivery Me thod Room Air 11/11/23 18:41 MDM - SOB/Dyspnea Medical Decision Making Paracentesis ultrasound showed several pockets with potential for drainage. Consult to Dr. Carreon who placed the paracentesis catheter she is currently draining at this time. At last reevaluation patient states she is feeling better. Care signed out to Dr. mcmahon at change of shift. See final notes for diagnosis and disposition. Care transferred over to myself at shift change, lab work was reviewed, paracentesis was already performed drained about 3150 mL out, when went to remove the catheter it had actually come out on its own and patient had stopped draining out the wound hole. A Band-Aid was applied. Patient said she was unable to urinate at this time and wanted to be discharged home. Patient be discharged home patient was feeling much better and was breathing easier. Medical Records I reviewed the patient's medical records. Lab Data I reviewed the patient's lab results. 11/11/23 15:55 11/11/23 15:55 Labs/Radiology: Radiology Impressions Chest X-Ray 11/11/23 14:44 IMPRESSION: Mild cardiomegaly with evidence of mild pulmonary congestion lower lung zones. Laboratory Results WBC 4.18 10^3/uL (3.29-11.43) 11/11/23 15:55 RBC 4.09 10^6/uL (3.85-5.65) 11/11/23 15:55 Hgb 12.20 g/dL (11.27-16.99) 11/11/23 15:55 Hct 38.0 % (36-47) 11/11/23 15:55 MCV 92.9 fl (85-98) 11/11/23 15:55 MCH 29.8 pg (27-33) 11/11/23 15:55 MCHC 32.1 g/dL (30-55) 11/11/23 15:55 RDW 13.9 % (12.1-15.1) 11/11/23 15:55 Plt Count 97 10^3/cmm (157-399) L 11/11/23 15:55 MPV 12.6 fL (7.4-10.4) H 11/11/23 15:55 Neut % (Auto) 65.2 % 11/11/23 15:55 Lymph % (Auto) 17.5 % 11/11/23 15:55 [place] % (Auto) 13.4 % 11/11/23 15:55 Eos % (Auto) 2.9 % 11/11/23 15:55 Baso % (Auto) 1.0 % 11/11/23 15:55 Neut # (Auto) 2.73 10^3/uL (1.8-7.7) 11/11/23 15:55 Lymph # (Auto) 0.7 10^3/uL (0.8-4.8) L 11/11/23 15:55 [place] # (Auto) 0.6 10^3/uL (0.2-0.9) 11/11/23 15:55 Eos # (Auto) 0.1 10^3/uL (0.0-0.8) 11/11/23 15:55 Baso # (Auto) 0.0 10^3/uL (0.0-0.1) 11/11/23 15:55 Nucleated RBC % (auto) 0 % 11/11/23 15:55 Nucleated RBCs # 0.0 /100WBC 11/11/23 15:55 Sodium 134 mmol/L (136-145) L 11/11/23 15:55 Potassium 4.0 mmol/L (3.5-5.1) 11/11/23 15:55 Chloride 105 mmol/L (98-107) 11/11/23 15:55 Carbon Dioxide 22 mmol/L (22-29) 11/11/23 15:55 Anion Gap 11.0 (5-19) 11/11/23 15:55 BUN 8 mg/dL (6-20) 11/11/23 15:55 Creatinine 0.5 mg/dL (0.5-0.9) 11/11/23 15:55 GFR Calculation 127.6 mL/min (90-130) 11/11/23 15:55 Glucose 89 mg/dL (65-115) 11/11/23 15:55 Calculated Osmolality 276 mOsm/kg (285-295) L 11/11/23 15:55 Calcium 7.8 mg/dL (8.5-10.5) L 11/11/23 15:55 Total Bilirubin 1.4 mg/dL (0.15-1.2) H 11/11/23 15:55 AST 51 U/L (0-32) H 11/11/23 15:55 ALT 28 U/L (0-33) 11/11/23 15:55 Alkaline Phosphatase 114 U/L (35-105) H 11/11/23 15:55 Ammonia 85 umol/L (11-51) H 11/11/23 15:55 Troponin T Baseline < 6 ng/L (0-10) 11/11/23 15:55 Troponin T 120 Minute 6.00 ng/L (0-10) 11/11/23 17:48 Delta Troponin T 0.01856 ABS# (0-10) 11/11/23 17:48 NT-Pro-B Natriuret Pep 80 pg/mL (0-125) 11/11/23 15:55 Total Protein 6.0 g/dL (6.6-8.7) L 11/11/23 15:55 Albumin 2.3 g/dL (3.5-5.2) L 11/11/23 15:55 Globulin 3.7 g/dL (1.3-4.6) 11/11/23 15:55 Discharge Plan Discharge Patient Disposition: Home Clinical Impression: Cirrhosis Qualifiers: Hepatic cirrhosis type: unspecified hepatic cirrhosis Ascites presence: without ascites Qualified Code(s): K74.60 - Unspecified cirrhosis of liver Abdominal ascites Qualifiers: Ascites type: other type Qualified Code(s): R18.8 - Other ascites Condition: Stable Prescriptions: No Action spironolactone 25 mg tablet 50 mg PO BID furosemide [Lasix] 20 mg tablet 20 mg PO BID Rx Instructions: pt states bid Discharge Orders: Discharge ED (Routine); Ordered 11/11/23 Ordered By: Albert Tillman Referrals: Estrella Gerard FNP [Primary Care Provider] - 1 week Patient Instructions: Ascites (ED), Paracentesis Activity Restrictions/Additional Instructions: Thank you for choosing [facility] for your healthcare needs today. Please realize that you were seen in the emergency department and that we are providing you with an emergency medical screening exam and this may not be a complete and all exclusive of all testing and/or medical workup we may need to determine your element or severity of your illness. It is very important that you follow-up as instructed with your primary care provider or specialist for the additional evaluation and to discuss your medical treatment plan. You may return to the emergency department should you have concerns or if your condition changes or worsens in any way. Coding Level of Care Code ED Pallet Rectifier for Chg Fwd Documented by User: Albert Tillman DO 11/11/23 22:46 HPI - SOB/Dyspnea 2 General: Chief Complaint: Shortness of Breath/Dyspnea Stated Complaint: swelling/SOB Time Seen by Provider: 11/11/23 15:21 PFSH ED 2 PFSH: Medical History Cellulitis Cellulitis of leg, right COVID-19 Hepatitis C Family History Mother Hypertension Family/Other Hypertension Denies family history of Diabetes CAD (coronary artery disease) Cancer Social History (Reviewed 11/12/23 @ 05:57 by SHAKIR Santos Smoking and tobacco/nicotine status: never used tobacco/nicotine Alcohol intake: former Substance/Drug Use: never Adopted: No Lives independently: Yes Household members: family Housing: House Course 2 Vital Signs: Vital signs: Vital Signs Temperature 98.0 F 11/11/23 14:17 Pulse Rate 69 11/11/23 18:41 Respiratory Rate 97 H 11/11/23 16:15 Blood Pressure 132/71 11/11/23 18:41 Pulse Oximetry 99 11/11/23 18:41 Oxygen Delivery Me thod Room Air 11/11/23 18:41 MDM - SOB/Dyspnea Medical Decision Making Care transferred over to myself at shift change, lab work was reviewed, paracentesis was already performed drained about 3150 mL out, when went to remove the catheter it had actually come out on its own and patient had stopped draining out the wound hole. A Band-Aid was applied. Patient said she was unable to urinate at this time and wanted to be discharged home. Patient be discharged home patient was feeling much better and was breathing easier. Lab Data 11/11/23 15:55 11/11/23 15:55 Labs/Radiology: Radiology Impressions Chest X-Ray 11/11/23 14:44 IMPRESSION: Mild cardiomegaly with evidence of mild pulmonary congestion lower lung zones. Laboratory Results WBC 4.18 10^3/uL (3.29-11.43) 11/11/23 15:55 RBC 4.09 10^6/uL (3.85-5.65) 11/11/23 15:55 Hgb 12.20 g/dL (11.27-16.99) 11/11/23 15:55 Hct 38.0 % (36-47) 11/11/23 15:55 MCV 92.9 fl (85-98) 11/11/23 15:55 MCH 29.8 pg (27-33) 11/11/23 15:55 MCHC 32.1 g/dL (30-55) 11/11/23 15:55 RDW 13.9 % (12.1-15.1) 11/11/23 15:55 Plt Count 97 10^3/cmm (157-399) L 11/11/23 15:55 MPV 12.6 fL (7.4-10.4) H 11/11/23 15:55 Neut % (Auto) 65.2 % 11/11/23 15:55 Lymph % (Auto) 17.5 % 11/11/23 15:55 [place] % (Auto) 13.4 % 11/11/23 15:55 Eos % (Auto) 2.9 % 11/11/23 15:55 Baso % (Auto) 1.0 % 11/11/23 15:55 Neut # (Auto) 2.73 10^3/uL (1.8-7.7) 11/11/23 15:55 Lymph # (Auto) 0.7 10^3/uL (0.8-4.8) L 11/11/23 15:55 [place] # (Auto) 0.6 10^3/uL (0.2-0.9) 11/11/23 15:55 Eos # (Auto) 0.1 10^3/uL (0.0-0.8) 11/11/23 15:55 Baso # (Auto) 0.0 10^3/uL (0.0-0.1) 11/11/23 15:55 Nucleated RBC % (auto) 0 % 11/11/23 15:55 Nucleated RBCs # 0.0 /100WBC 11/11/23 15:55 Sodium 134 mmol/L (136-145) L 11/11/23 15:55 Potassium 4.0 mmol/L (3.5-5.1) 11/11/23 15:55 Chloride 105 mmol/L (98-107) 11/11/23 15:55 Carbon Dioxide 22 mmol/L (22-29) 11/11/23 15:55 Anion Gap 11.0 (5-19) 11/11/23 15:55 BUN 8 mg/dL (6-20) 11/11/23 15:55 Creatinine 0.5 mg/dL (0.5-0.9) 11/11/23 15:55 GFR Calculation 127.6 mL/min (90-130) 11/11/23 15:55 Glucose 89 mg/dL (65-115) 11/11/23 15:55 Calculated Osmolality 276 mOsm/kg (285-295) L 11/11/23 15:55 Calcium 7.8 mg/dL (8.5-10.5) L 11/11/23 15:55 Total Bilirubin 1.4 mg/dL (0.15-1.2) H 11/11/23 15:55 AST 51 U/L (0-32) H 11/11/23 15:55 ALT 28 U/L (0-33) 11/11/23 15:55 Alkaline Phosphatase 114 U/L (35-105) H 11/11/23 15:55 Ammonia 85 umol/L (11-51) H 11/11/23 15:55 Troponin T Baseline < 6 ng/L (0-10) 11/11/23 15:55 Troponin T 120 Minute 6.00 ng/L (0-10) 11/11/23 17:48 Delta Troponin T 0.70045 ABS# (0-10) 11/11/23 17:48 NT-Pro-B Natriuret Pep 80 pg/mL (0-125) 11/11/23 15:55 Total Protein 6.0 g/dL (6.6-8.7) L 11/11/23 15:55 Albumin 2.3 g/dL (3.5-5.2) L 11/11/23 15:55 Globulin 3.7 g/dL (1.3-4.6) 11/11/23 15:55 All radiology interpretation(s) finalized by discharge Discharge Plan Discharge Patient Disposition: Home Clinical Impression: Cirrhosis Qualifiers: Hepatic cirrhosis type: unspecified hepatic cirrhosis Ascites presence: without ascites Qualified Code(s): K74.60 - Unspecified cirrhosis of liver Abdominal ascites Qualifiers: Ascites type: other type Qualified Code(s): R18.8 - Other ascites Condition: Stable Prescriptions: No Action spironolactone 25 mg tablet 50 mg PO BID furosemide [Lasix] 20 mg tablet 20 mg PO BID Rx Instructions: pt states bid Discharge Orders: Discharge ED (Routine); Ordered 11/11/23 Ordered By: Albert Tillman Referrals: Estrella Gerard FNP [Primary Care Provider] - 1 week Patient Instructions: Ascites (ED), Paracentesis Activity Restrictions/Additional Instructions: Thank you for choosing [facility] for your healthcare needs today. Please realize that you were seen in the emergency department and that we are providing you with an emergency medical screening exam and this may not be a complete and all exclusive of all testing and/or medical workup we may need to determine your element or severity of your illness. It is very important that you follow-up as instructed with your primary care provider or specialist for the additional evaluation and to discuss your medical treatment plan. You may return to the emergency department should you have concerns or if your condition changes or worsens in any way. Coding Level of Care Code ED Pallet Rectifier for Vera Freeman
--- NOTE | 2023-11-11 15:38 | US_ITS ---
WS: [id number] ULTRASOUND-GUIDED PARACENTESIS CLINICAL INFORMATION: ascites COMPARISON: None. Procedure Informed consent: The risks, benefits, and alternatives of the procedure were discussed with the ara ent. Verbal and written consent was obtained. Timeout: A timeout was performed to confirm the correct patient, procedure, and site. Preparation: A suitable skin site was identified. The patient was prepped and draped in usual sterile fashion. Lidocaine 1% was used for local anesthesia. Catheter: 4 [place] One-step Yueh catheter. Side: LEFT lower quadrant. Fluid Volume: 3150 ml Color: Yellow DISPOSITION: Discarded safely. Complications: None. US/US paracentesis abd w [id number] IMPRESSION: Uncomplicated ultrasound-guided paracentesis. Removal of 3150 cc
[2023-11-11 16:09] LABS: Eosinophils # 0.1 10^3/uL (0.0-0.8); Eosinophils % 2.9 %; Lymphocytes # 0.7 10^3/uL (0.8-4.8); Lymphocytes % 17.5 %; Mean Corpuscular HGB Conc 32.1 g/dL (30-55); Mean Corpuscular Hemoglobin 29.8 pg (27-33); Mean Corpuscular Volume 92.9 fl (85-98); Mean Platelet Volume 12.6 fL (7.4-10.4); Monocytes # 0.6 10^3/uL (0.2-0.9); Monocytes % 13.4 %; Neutrophils # 2.73 10^3/uL (1.8-7.7); Neutrophils % 65.2 %; Nucleated Red Blood Cells % 0 %; Platelet Count 97 10^3/cmm (157-399); Red Blood Count 4.09 10^6/uL (3.85-5.65); Red Cell Distribution Width 13.9 % (12.1-15.1); White Blood Count 4.18 10^3/uL (3.29-11.43)
[2023-11-11 16:25] LABS: Ammonia 85 umol/L (11-51)
[2023-11-11 16:30] LABS: Troponin(5th) Baseline < 6 ng/L (0-10)
[2023-11-11 16:37] LABS: Alanine Aminotransferase 28 U/L (0-33); Albumin Level 2.3 g/dL (3.5-5.2); Alkaline Phosphatase 114 U/L (35-105); Aspartate Amino Transferase 51 U/L (0-32); Blood Urea Nitrogen 8 mg/dL (6-20); Calcium 7.8 mg/dL (8.5-10.5); Carbon Dioxide 22 mmol/L (22-29); Chloride 105 mmol/L (98-107); Creatinine Clr Calc Pharmacy 148.9309; Globulin 3.7 g/dL (1.3-4.6); Glomerular Filtration Rate 127.6 mL/min (90-130); Glucose 89 mg/dL (65-115); NT Pro B Type Natriuretic Pept 80 pg/mL (0-125); Osmolality Calculated 276 mOsm/kg (285-295); Sodium 134 mmol/L (136-145); Total Bilirubin 1.4 mg/dL (0.15-1.2)
--- NOTE | 2023-11-11 17:02 | PC.NURSE ---
Paracentesis Procedure: Start Time: @1620 Stop Time: @1625 Total fluid removed: 3L 150mL Suction turned off @1700, Dr. Nieto notified.
--- NOTE | 2023-11-11 18:01 | ECG_ITS ---
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 Measurements Intervals [place] Rate: 68 P: 62 MI: 148 QRS: 32 QRSD: 73 T: 32 QT: 416 QTc: 443 Interpretive Statements SINUS RHYTHM Compared to ECG 11/11/2023 14:21:27 Myocardial infarct finding no longer present Electronically Signed On 11-12-2023 11:58:24 CDT by Felix King M.D. [id number]
[2023-11-11 18:12] LABS: Troponin 5 2HR Delta 0.00001 ABS# (0-10)
== END 2023-11-11 18:38 | disposition home or self-care (01) ==
PROVIDERS: Nurse Practitioner Family; Emergency Provider Family Medicine; PCP Nurse Practitioner Family
DX: K74.60 Unspecified cirrhosis of liver (principal); R18.8 Other ascites; Z86.19 Personal history of other infectious and parasitic diseases
CPT/HCPCS: 36415; 49083; 71045; 80053; 82140; 83880; 84484; 85025; 93005; 99285

== ENCOUNTER 2023-11-26 11:34 | Emergency (ER) | payer BC, MEDICAID, SELFPAY ==
[2023-11-26] VITALS (7 sets, daily range): BP systolic 135–164; BP diastolic 70–89; PULSE 64–77; RESP 24; TEMP 36.6; O2SAT 97–100; BMI 36.6
--- NOTE | 2023-11-26 11:52 | XR_ITS ---
WS: [id number] KUB, AP view, 11/26/2023 Clinical Data: abd pain Comparison: None. Findings: No abnormal intraabdominal masses or calcifications are seen. There is no dilatated small bowel or ev idence of obstruction. There is a moderate amount of fecal material in the colon. The abdomen is difficult to penetrate marleny use of the patient's ascites. There are cholecystectomy clips in the right upper quadrant. XR/XR abdomen 1V* [id number] Impression: 1. Probable ascites. 2. Large amount of fecal material in the colon.
--- NOTE | 2023-11-26 12:02 | US_ITS ---
WS: [id number] ULTRASOUND-GUIDED PARACENTESIS CLINICAL INFORMATION: Ascites COMPARISON: None. Procedure Informed consent: The risks, benefits, and alternatives of the procedure were discussed with the ara ent. Verbal and written consent was obtained. Timeout: A timeout was performed to confirm the correct patient, procedure, and site. Preparation: A suitable skin site was identified. The patient was prepped and draped in usual sterile fashion. Lidocaine 1% was used for local anesthesia. Catheter: 4 [place] One-step Yueh catheter. Side: LEFT lower quadrant. Fluid Volume: 8000 ml Color: Clear yellow DISPOSITION: Discarded safely. Complications: None. US/US paracentesis abd w [id number] IMPRESSION: Uncomplicated ultrasound-guided paracentesis. Removal of 8000 cc
--- NOTE | 2023-11-26 12:32 | ED_ITS ---
HPI - Abdominal Pain 2 General: Chief Complaint: Abdominal Pain Stated Complaint: SOB, SWOLLEN BELLY Time Seen by Provider: 11/26/23 11:54 History of Present Illness: 58-year-old female with a history of cir rhosis, hepatitis C who presents to the emergency room with worsening ascites and shortness of breath. Ascites has gotten worse. She has not called her PCP to try to schedule a paracentesis. No fevers. No cough. No altered mental status. No focal motor deficits. No chest pain. Related Data Home Medications Medication Instructions Recorded Confirmed furosemide 20 mg tablet (Lasix) 20 mg PO BID 10/29/23 11/26/23 spironolactone 50 mg tablet 50 mg PO BID 11/26/23 11/26/23 Allergies Allergy/AdvReac Type Severity Reaction Status Date / Time NSAIDS (Non-Steroidal Allergy Unknown Verified 11/19/23 14:53 Anti-Inflamma Review of Systems 2 Narrative: Constitutional symptoms: Negative except as documented in HPI. Skin symptoms: Negative except as documented in HPI. Eye symptoms: Negative except as documented in HPI. ENMT symptoms: Negative except as documented in HPI. Respiratory symptoms: Negative except as documented in HPI. Cardiovascular symptoms: Negative except as documented in HPI. Gastrointestinal symptoms: Negative except as documented in HPI. Genitourinary symptoms: Negative except as documented in HPI. Musculoskeletal symptoms: Negative except as documented in HPI. Neurologic symptoms: Negative except as documented in HPI. Psychiatric symptoms: Negative except as documented in HPI. Endocrine symptoms: Negative except as documented in HPI. PFSH ED 2 PFSH: Medical History Cellulitis Cellulitis of leg, right COVID-19 Hepatitis C Family History Mother Hypertension Family/Other Hypertension Denies family history of Diabetes CAD (coronary artery disease) Cancer Social History Smoking and tobacco/nicotine status: never used tobacco/nicotine Alcohol intake: former Substance/Drug Use: never Adopted: No Lives independently: Yes Household members: family Housing: House Physical Exam 2 Narrative: EXAM NARRATIVE: General: Alert, no acute distress. Skin: Warm, dry. Head: Normocephalic, atraumatic. Neck: Supple, trachea midline. Eye: Extraocular movements are intact. Ears, nose, mouth and throat: mucosa moist. Cardiovascular: Regular, Normal peripheral perfusion. Respiratory: Lungs are clear to auscultation, respirations are non-labored, breath sounds are equal, Symmetrical chest wall expansion. Gastrointestinal: Soft, Nontender, distended and tight Musculoskeletal: Normal ROM, no deformity. Neurological: Alert and oriented, No focal neurological deficit observed. Psychiatric: Cooperative, appropriate mood & affect. Course 2 Vital Signs: Vital signs: Vital Signs Temperature 97.9 F 11/26/23 11:45 Pulse Rate 65 11/26/23 15:40 Respiratory Rate 24 H 11/26/23 11:45 Blood Pressure 143/71 11/26/23 15:40 Pulse Oximetry 100 11/26/23 15:40 Oxygen Delivery Me thod Room Air 11/26/23 11:45 MDM - Abdominal Pain Medical Decision Making Medical decision making: Differential diagnosis including but not limited to and based on the above HPI, review of systems and physical exam: This patient with cirrhosis and worsening swelling her shortness of breath is likely due to her ascites and she will need a paracentesis. Coags and basic lab work ordered. Orders placed to evaluate differential diagnosis based on the above differential, HPI and physical exam Abdominal x-ray shows probable ascites and large amount of fecal material in the colon. This was reviewed and interpreted by myself the emergency room physician. I also reviewed the radiology report. Lab Review: Laboratory results were reviewed and interpreted by myself the emergency room physician. No leukocytosis. No anemia. Platelets are slightly low at 112. BUN/creatinine normal at 7 and 0.6. Consultation: I spoke with Dr. Carreon with interventional radiology. He is performing an ultrasound-guided paracentesis in the emergency room. I reviewed the patient's medical record. Reexamination: Patient has much less distention. Almost 8 L of fluid were taken off. She received albumin. No altered mental status. No increased work of breathing at this point. Assessment and plan: Ascites Cirrhosis ? Paracentesis and albumin. In the emergency room. - Discharged home - Discussed plan with patient. Answered any questions. - Evaluation and treatment of this problem were appropriate in the emergency setting. Lab Data 11/26/23 13:05 11/26/23 13:05 Labs/Radiology: Radiology Impressions Abdomen X-Ray 11/26/23 11:52 Impression: 1. Probable ascites. 2. Large amount of fecal material in the colon. Laboratory Results WBC 3.55 10^3/uL (3.29-11.43) 11/26/23 13:05 RBC 4.51 10^6/uL (3.85-5.65) 11/26/23 13:05 Hgb 13.20 g/dL (11.27-16.99) 11/26/23 13:05 Hct 42.5 % (36-47) 11/26/23 13:05 MCV 94.2 fl (85-98) 11/26/23 13:05 MCH 29.3 pg (27-33) 11/26/23 13:05 MCHC 31.1 g/dL (30-55) 11/26/23 13:05 RDW 13.5 % (12.1-15.1) 11/26/23 13:05 Plt Count 112 10^3/cmm (157-399) L 11/26/23 13:05 MPV 12.4 fL (7.4-10.4) H 11/26/23 13:05 Neut % (Auto) 71.8 % 11/26/23 13:05 Lymph % (Auto) 13.8 % 11/26/23 13:05 Mcnairy % (Auto) 9.6 % 11/26/23 13:05 Eos % (Auto) 3.4 % 11/26/23 13:05 Baso % (Auto) 0.8 % 11/26/23 13:05 Neut # (Auto) 2.55 10^3/uL (1.8-7.7) 11/26/23 13:05 Lymph # (Auto) 0.5 10^3/uL (0.8-4.8) L 11/26/23 13:05 Mcnairy # (Auto) 0.3 10^3/uL (0.2-0.9) 11/26/23 13:05 Eos # (Auto) 0.1 10^3/uL (0.0-0.8) 11/26/23 13:05 Baso # (Auto) 0.0 10^3/uL (0.0-0.1) 11/26/23 13:05 Nucleated RBC % (auto) 0 % 11/26/23 13:05 Nucleated RBCs # 0.0 /100WBC 11/26/23 13:05 PT 18.70 SECONDS (12.1-14.9) H 11/26/23 13:05 INR 1.50 (0.8-1.2) H 11/26/23 13:05 APTT 35.8 SECONDS (23.9-36.7) 11/26/23 13:05 Sodium 139 mmol/L (136-145) 11/26/23 13:05 Potassium 3.3 mmol/L (3.5-5.1) L 11/26/23 13:05 Chloride 104 mmol/L (98-107) 11/26/23 13:05 Carbon Dioxide 29 mmol/L (22-29) 11/26/23 13:05 Anion Gap 9.3 (5-19) 11/26/23 13:05 BUN 7 mg/dL (6-20) 11/26/23 13:05 Creatinine 0.6 mg/dL (0.5-0.9) 11/26/23 13:05 GFR Calculation 103.4 mL/min (90-130) 11/26/23 13:05 Glucose 119 mg/dL (65-115) H 11/26/23 13:05 Calculated Osmolality 287 mOsm/kg (285-295) 11/26/23 13:05 Lactic Acid 1.7 mmol/L (0.5-2.2) 11/26/23 13:05 Calcium 7.7 mg/dL (8.5-10.5) L 11/26/23 13:05 Total Bilirubin 1.2 mg/dL (0.15-1.2) 11/26/23 13:05 AST 66 U/L (0-32) H 11/26/23 13:05 ALT 31 U/L (0-33) 11/26/23 13:05 Alkaline Phosphatase 138 U/L (35-105) H 11/26/23 13:05 Ammonia 62 umol/L (11-51) H 11/26/23 13:05 C-Reactive Protein 9.8 mg/L (0.0-4.9) H 11/26/23 13:05 Total Protein 6.3 g/dL (6.6-8.7) L 11/26/23 13:05 Albumin 2.4 g/dL (3.5-5.2) L 11/26/23 13:05 Globulin 3.9 g/dL (1.3-4.6) 11/26/23 13:05 Procalcitonin 0.06 ng/mL (0-0.5) 11/26/23 13:05 All radiology interpretation(s) finalized by discharge Discharge Plan Discharge Patient Disposition: Home Clinical Impression: Ascites Cirrhosis Qualifiers: Hepatic cirrhosis type: unspecified hepatic cirrhosis Ascites presence: without ascites Qualified Code(s): K74.60 - Unspecified cirrhosis of liver Condition: Stable Prescriptions: No Action spironolactone 50 mg tablet 50 mg PO BID furosemide [Lasix] 20 mg tablet 20 mg PO BID Discharge Orders: Discharge ED (Routine); Ordered 11/26/23 Ordered By: Tami Amaya Referrals: Estrella Gerard FNP [Primary Care Provider] - Discharge Diet: As Directed Discharge Activity: Increase activity as tolerated Patient Instructions: Ascites (ED), Paracentesis (DC) Activity Restrictions/Additional Instructions: Please limit your fluid intake. You must schedule follow-up for paracentesis with your primary and with radiology. It is an appropriate to utilize the ER for your routine paracentesis. Thank you for choosing [facility] for your healthcare needs today. Please realize this is an emergency room and that we are providing you with a medical screening exam and this may not be complete and all inclusive of all the testing and or work up that you may need to determine your ailment or severity of your illness. You have been screened and evaluated and felt safe for discharge. Health conditions do change or evolve sometimes and as such it is important that you follow up with your Primary Doctor to be re checked, 3-5 days is a general good time frame for follow up. You are always welcome to return to the ED for re assessment if your symptoms are worsening or you have new concerns Coding Level of Care Code ED [employer] Consultant for Vera Freeman
[2023-11-26 13:21] LABS: Basophils % 0.8 %; Eosinophils # 0.1 10^3/uL (0.0-0.8); Eosinophils % 3.4 %; Hematocrit 42.5 % (36-47); Lymphocytes # 0.5 10^3/uL (0.8-4.8); Lymphocytes % 13.8 %; Mean Corpuscular HGB Conc 31.1 g/dL (30-55); Mean Corpuscular Hemoglobin 29.3 pg (27-33); Mean Corpuscular Volume 94.2 fl (85-98); Mean Platelet Volume 12.4 fL (7.4-10.4); Monocytes # 0.3 10^3/uL (0.2-0.9); Monocytes % 9.6 %; Neutrophils # 2.55 10^3/uL (1.8-7.7); Neutrophils % 71.8 %; Nucleated Red Blood Cells % 0 %; Platelet Count 112 10^3/cmm (157-399); Red Blood Count 4.51 10^6/uL (3.85-5.65); Red Cell Distribution Width 13.5 % (12.1-15.1); White Blood Count 3.55 10^3/uL (3.29-11.43)
[2023-11-26 13:27] LABS: Partial Thromboplastin Time 35.8 SECONDS (23.9-36.7)
[2023-11-26 13:33] LABS: Alanine Aminotransferase 31 U/L (0-33); Albumin Level 2.4 g/dL (3.5-5.2); Alkaline Phosphatase 138 U/L (35-105); Anion Gap 9.3 (5-19); Aspartate Amino Transferase 66 U/L (0-32); Blood Urea Nitrogen 7 mg/dL (6-20); C Reactive Protein 9.8 mg/L (0.0-4.9); Calcium 7.7 mg/dL (8.5-10.5); Carbon Dioxide 29 mmol/L (22-29); Chloride 104 mmol/L (98-107); Creatinine Clr Calc Pharmacy 122.4973; Globulin 3.9 g/dL (1.3-4.6); Glomerular Filtration Rate 103.4 mL/min (90-130); Glucose 119 mg/dL (65-115); Lactic Sepsis W/Reflex 1.7 mmol/L (0.5-2.2); Osmolality Calculated 287 mOsm/kg (285-295); Potassium 3.3 mmol/L (3.5-5.1); Sodium 139 mmol/L (136-145); Total Bilirubin 1.2 mg/dL (0.15-1.2); Total Protein 6.3 g/dL (6.6-8.7)
[2023-11-26 13:34] LABS: Ammonia 62 umol/L (11-51)
[2023-11-26 13:40] LABS: Procalcitonin 0.06 ng/mL (0-0.5)
[2023-11-26] MEDS: albumin 25 G/100 ML BAG 60 G IV (14:59)
[2023-11-26 17:08] LABS: Bilirubin Urine Negative (Negative); Blood Urine Negative (Negative); Glucose Urine UA Negative (Normal); Ketones Urine Negative (Negative); Leukocyte Esterase Urine Trace (Negative); Nitrate Urine Negative (Negative); Protein Urine Negative (Negative); Specific Gravity, Urine 1.009 (1.005-1.030); Urine Appearance Cloudy (CLEAR); Urine Color Yellow (Yellow); pH Urine 7.5 (5-7)
[2023-11-26 17:11] LABS: Bacteria Urine 4+ /hpf; Hyaline Casts Urine 0.81 /lpf; RBC Urine 0-2 /hpf (0-2)
[2023-11-26 17:33] LABS: UA Slide Review UA Slide Review Perf
== END 2023-11-26 16:58 | disposition home or self-care (01) ==
PROVIDERS: Emergency Provider Emergency Medicine; PCP Nurse Practitioner Family
DX: K74.60 Unspecified cirrhosis of liver (principal); R18.8 Other ascites; Z86.19 Personal history of other infectious and parasitic diseases
CPT/HCPCS: 36415; 49083; 74018; 80053; 81001; 82140; 83605; 84145; 85025; 85610; 85730; 86140; 87040; 96374; 99285; P9046

== ENCOUNTER 2023-12-13 11:45 | Day surgery (SDC) | payer BC, MEDICAID, SELFPAY ==
[2023-12-13 11:50] VITALS: BP 154/85; PULSE 91; RESP 18; O2SAT 98
[2023-12-13 11:53] VITALS: BMI 37.9
--- NOTE | 2023-12-13 11:53 | US_ITS ---
WS: [email or web address] ULTRASOUND-GUIDED THERAPEUTIC PARACENTESIS Procedure, risks, and complications have been explained to the patient. Consent is obtained. Utilizing aseptic technique and 1% buffered lidocaine, a small dermatome was made through which a 5 F rench Yueh catheter was inserted. Approximately 6600 ml of clear peritoneal fluid was obtained witho ut difficulty. No complications encountered. US/US paracentesis abd w [id number] IMPRESSION: Uncomplicated paracentesis yielding 6600 ml of peritoneal fluid.
== END 2023-12-13 13:35 | disposition home or self-care (01) ==
PROVIDERS: Radiology Diagnostic Radiology; PCP Nurse Practitioner Family
PROC: (CPT 49082; principal; 2023-12-13 12:30)
DX: R18.8 Other ascites (principal)
CPT/HCPCS: 49083

== ENCOUNTER → 2023-12-28 11:37 | Day surgery (SDC) | payer BC, MEDICAID, SELFPAY ==
[2023-12-28 11:40] VITALS: BP 127/79; PULSE 61; RESP 16; TEMP 36.4; O2SAT 94
[2023-12-28 11:45] VITALS: BMI 32.9
--- NOTE | 2023-12-28 12:04 | US_ITS ---
WS: [email or web address] ULTRASOUND-GUIDED THERAPEUTIC AND DIAGNOSTIC PARACENTESIS Procedure, risks, and complications have been explained to the patient. Consent is obtained. Utilizing aseptic technique and 1% buffered lidocaine, a small dermatome was made through which a 5 F rench Yueh catheter was inserted. Approximately 5000 ml of clear peritoneal fluid was obtained witho ut difficulty. No complications encountered. US/US paracentesis abd w [id number] IMPRESSION: Uncomplicated paracentesis yielding 5000 ml of peritoneal fluid.
[2023-12-28 13:21] LABS: Appearance, Peritoneal Fluid Cloudy (Clear); Color, Peritoneal Fluid Pale Yellow (Pale Yellow); Cyto Order Verification No Order; Pathology Referral Yes
[2023-12-28 13:23] LABS: Mononuclear #, Pertinoneal Fl 0.133 10^3/uL; Polynuclear # Cells, Perit 0.047 10^3/uL; RBC Pertioneal Fluid 2 10^3/uL; WBC Peritoneal Fluid 180 /uL
== END ==
LOC: GILAB 11:38
PROVIDERS: Radiology Diagnostic Radiology; PCP Nurse Practitioner Family; Visit Provider Nurse Practitioner Family
PROC: (CPT 49082; principal; 2023-12-28 13:00)
DX: K74.60 Unspecified cirrhosis of liver (principal); R18.8 Other ascites
CPT/HCPCS: 49083; 80503; 87070; 87075; 87205; 89050

== ENCOUNTER → 2023-12-30 09:25 | Outpatient (BNVA) | payer BC, MEDICAID, SELFPAY | PROVIDERS: PCP Nurse Practitioner Family; Visit Provider Nurse Practitioner Family | DX: Z78.9 Other specified health status (principal) | CPT/HCPCS: 87070; 87205; 87491; 87591; 87624; 87661 ==

== ENCOUNTER → 2024-01-03 11:16 | Day surgery (SDC) | payer BC, MEDICAID, SELFPAY ==
[2024-01-03 11:35] VITALS: BP 139/71; PULSE 72; RESP 20; TEMP 37; O2SAT 97; BMI 31.8
--- NOTE | 2024-01-03 11:39 | US_ITS ---
WS: [email or web address] ULTRASOUND-GUIDED PARACENTESIS CLINICAL INFORMATION: decompensated HCV cirrhosis, ascites COMPARISON: None. Procedure Informed consent: The risks, benefits, and alternatives of the procedure were discussed with the ara ent. Verbal and written consent was obtained. Timeout: A timeout was performed to confirm the correct patient, procedure, and site. Preparation: A suitable skin site was identified. The patient was prepped and draped in usual sterile fashion. Lidocaine 1% was used for local anesthesia. Catheter: 4 Angolan One-step Yueh catheter. Side: LEFT lower quadrant. Fluid Volume: 6000 ml Color: Clear yellow DISPOSITION: Discarded safely. Complications: None. Patient disposition: Discharged from the department in stable condition. US/US paracentesis abd w [id number] IMPRESSION: Uncomplicated ultrasound-guided paracentesis. Removal of 6000 cc
[2024-01-03 13:00] LABS: Cyto Order Verification No Order
[2024-01-03 13:01] LABS: Appearance, Peritoneal Fluid Hazy (Clear); Color, Peritoneal Fluid Pale Yellow (Pale Yellow); Pathology Referral Yes
[2024-01-03 13:06] LABS: Mononuclear #, Pertinoneal Fl 0.113 10^3/uL; Polynuclear # Cells, Perit 0.054 10^3/uL; RBC Pertioneal Fluid 0 10^3/uL; WBC Peritoneal Fluid 167 /uL
[2024-01-03] MEDS: albumin 50 G/200 ML BAG 60 G IV (13:33)
== END ==
PROVIDERS: Radiology Neuroradiology; PCP Nurse Practitioner Family; Visit Provider Nurse Practitioner Family
PROC: (CPT 49082; principal; 2024-01-03 13:00)
DX: K74.60 Unspecified cirrhosis of liver (principal); R18.8 Other ascites
CPT/HCPCS: 49083; 80503; 87070; 87075; 87205; 89050; P9046

== ENCOUNTER → 2024-01-11 11:27 | Day surgery (SDC) | payer BC, MEDICAID, SELFPAY ==
[2024-01-11 11:40] VITALS: BP 137/67; PULSE 62; RESP 18; TEMP 36.3; O2SAT 98
[2024-01-11 11:42] VITALS: BMI 29.7
--- NOTE | 2024-01-11 11:54 | US_ITS ---
WS: [email or web address] ULTRASOUND-GUIDED THERAPEUTIC AND DIAGNOSTIC PARACENTESIS Procedure, risks, and complications have been explained to the patient. Consent is obtained. Utilizing aseptic technique and 1% buffered lidocaine, a small dermatome was made through which a 5 F rench Yueh catheter was inserted. Approximately 3700 ml of clear peritoneal fluid was obtained witho ut difficulty. No complications encountered. US/US paracentesis abd w [id number] IMPRESSION: Uncomplicated paracentesis yielding 3700 ml of peritoneal fluid.
[2024-01-11 13:35] LABS: Cyto Order Verification No Order
[2024-01-11 13:38] LABS: Apprearance, Body Fluid CLOUDY; Color, Body Fluid YELLOW; Fluid Laterality PERITONEAL FLUID; PATH Referral YES
[2024-01-11 13:52] LABS: Body Fluid Polynuclear #Cells 0.079; Body Fluid WBC 271 /uL; Monocytes # Body Fluid 0.192; RBC, Body Fluid 0 10^3/uL
== END ==
PROVIDERS: Internal Medicine Gastroenterology; Radiology Diagnostic Radiology; PCP Nurse Practitioner Family; Visit Provider Nurse Practitioner Family
PROC: (CPT 49082; principal; 2024-01-11 13:00)
DX: R18.8 Other ascites (principal)
CPT/HCPCS: 49083; 80503; 87070; 87075; 87205; 89050

== ENCOUNTER 2024-01-18 10:57 | Day surgery (SDC) | payer BC, MEDICAID, SELFPAY ==
[2024-01-18 11:15] VITALS: BP 137/66; PULSE 59; RESP 18; TEMP 36.4; O2SAT 99
--- NOTE | 2024-01-18 11:36 | US_ITS ---
WS: [email or web address] ULTRASOUND ABDOMEN LIMITED CLINICAL INFORMATION: ascites COMPARISON: None. FINDINGS: Insufficient fluid for paracentesis US/US abdomen lmt fluid [id number] IMPRESSION: See above
== END 2024-01-18 12:05 | disposition home or self-care (01) ==
PROVIDERS: Radiology Neuroradiology; PCP Nurse Practitioner Family; Visit Provider Nurse Practitioner Family
DX: R18.8 Other ascites (principal)
CPT/HCPCS: 49083; 76705

== ENCOUNTER 2024-01-25 11:32 | Day surgery (SDC) | payer BC, MEDICAID, SELFPAY ==
--- NOTE | 2024-01-25 11:43 | US_ITS ---
WS: [email or web address] Abdominal ultrasound, limited. History: Evaluate for ascites. Comparison: None. All 4 quadrants are imaged by ultrasound to evaluate for ascites. Small amount of peritoneal fluid in all 4 quadrants. Paracentesis will not be performed due to insufficient fluid. US/US abdomen lmt fluid [id number] IMPRESSION: Insufficient fluid for paracentesis.
[2024-01-25 11:45] VITALS: BP 137/72; PULSE 64; RESP 16; TEMP 36.6; O2SAT 100; BMI 30.9
== END 2024-01-25 12:05 | disposition home or self-care (01) ==
LOC: GILAB 11:32
PROVIDERS: Radiology Diagnostic Radiology; PCP Nurse Practitioner Family; Visit Provider Nurse Practitioner Family
PROC: (CPT 49082; principal; 2024-01-25 13:00)
DX: R18.8 Other ascites (principal)
CPT/HCPCS: 49083; 76705

== ENCOUNTER 2024-02-01 11:16 | Day surgery (SDC) | payer BC, MEDICAID, SELFPAY ==
[2024-02-01 11:36] VITALS: BP 145/75; PULSE 65; RESP 16; TEMP 36.2; O2SAT 97; BMI 32.9
--- NOTE | 2024-02-01 11:41 | US_ITS ---
WS: [email or web address] ULTRASOUND-GUIDED PARACENTESIS CLINICAL INFORMATION: ascites COMPARISON: None. Procedure Informed consent: The risks, benefits, and alternatives of the procedure were discussed with the ara ent. Verbal and written consent was obtained. Timeout: A timeout was performed to confirm the correct patient, procedure, and site. Preparation: A suitable skin site was identified. The patient was prepped and draped in usual sterile fashion. Lidocaine 1% was used for local anesthesia. Catheter: 4 Iraqi One-step Yueh catheter. Side: LEFT lower quadrant. Fluid Volume: 6200 ml Color: Clear yellow DISPOSITION: Discarded safely. Complications: None. Patient disposition: Discharged from the department in stable condition. US/US paracentesis abd w [id number] IMPRESSION: Uncomplicated ultrasound-guided paracentesis. Removal of 6200 cc
[2024-02-01 13:53] LABS: Cyto Order Verification No Order
[2024-02-01] MEDS: albumin 50 G/200 ML BAG 60 G IV (14:38)
[2024-02-02 16:54] LABS: Polynuclear # Cells, Perit 0.052 10^3/uL; RBC Pertioneal Fluid 0 10^3/uL; WBC Peritoneal Fluid 182 /uL
[2024-02-02 16:55] LABS: Appearance, Peritoneal Fluid Hazy (Clear); Color, Peritoneal Fluid Pale Yellow (Pale Yellow)
== END 2024-02-01 15:27 | disposition home or self-care (01) ==
PROVIDERS: Internal Medicine Gastroenterology; Radiology Neuroradiology; PCP Nurse Practitioner Family
PROC: (CPT 49082; principal; 2024-02-01 12:30)
DX: R18.8 Other ascites (principal)
CPT/HCPCS: 49083; 87070; 87075; 87205; 89050; P9046

== ENCOUNTER 2024-02-08 11:50 | Day surgery (SDC) | payer BC, MEDICAID, SELFPAY ==
--- NOTE | 2024-02-08 11:54 | US_ITS ---
WS: [email or web address] ULTRASOUND-GUIDED THERAPEUTIC AND DIAGNOSTIC PARACENTESIS Procedure, risks, and complications have been explained to the patient. Consent is obtained. Utilizing aseptic technique and 1% buffered lidocaine, a small dermatome was made through which a 5 F rench Yueh catheter was inserted. Approximately 4250 ml of clear peritoneal fluid was obtained witho ut difficulty. No complications encountered. US/US paracentesis abd w [id number] IMPRESSION: Uncomplicated paracentesis yielding 4250 ml of peritoneal fluid.
[2024-02-08 12:01] VITALS: BP 120/62; PULSE 62; RESP 18; TEMP 36.4; O2SAT 99
[2024-02-08 12:57] LABS: Mononuclear #, Pertinoneal Fl 0.185 10^3/uL; RBC Pertioneal Fluid 1 10^3/uL; WBC Peritoneal Fluid 245 /uL
[2024-02-08 13:11] LABS: Color, Peritoneal Fluid Yellow (Pale Yellow); Cyto Order Verification No Order
[2024-02-08 13:12] LABS: Appearance, Peritoneal Fluid Cloudy (Clear); Pathology Referral Yes
== END 2024-02-08 12:53 | disposition home or self-care (01) ==
PROVIDERS: Internal Medicine Gastroenterology; Radiology Diagnostic Radiology; PCP Nurse Practitioner Family; Visit Provider Nurse Practitioner Family
PROC: (CPT 49082; principal; 2024-02-08 12:30)
DX: R18.8 Other ascites (principal); B19.20 Unspecified viral hepatitis C without hepatic coma
CPT/HCPCS: 49083; 80503; 87070; 87075; 87205; 89050

== ENCOUNTER → 2024-02-22 11:29 | Day surgery (SDC) | payer BC, MEDICAID, SELFPAY ==
--- NOTE | 2024-02-22 11:36 | US_ITS ---
WS: [email or web address] ULTRASOUND-GUIDED THERAPEUTIC AND DIAGNOSTIC PARACENTESIS Procedure, risks, and complications have been explained to the patient. Consent is obtained. Utilizing aseptic technique and 1% buffered lidocaine, a small dermatome was made through which a 5 F rench Yueh catheter was inserted. Approximately 4750 ml of clear peritoneal fluid was obtained witho ut difficulty. No complications encountered. Specimen collected for analysis as requested. US/US paracentesis abd w [id number] IMPRESSION: Uncomplicated paracentesis yielding 4750 ml of peritoneal fluid.
[2024-02-22 11:42] VITALS: BP 137/77; PULSE 74; RESP 17; TEMP 36.9; O2SAT 95; BMI 29.9
[2024-02-22 12:48] LABS: Appearance, Peritoneal Fluid Cloudy (Clear); Color, Peritoneal Fluid Pale Yellow (Pale Yellow); Cyto Order Verification No Order; Pathology Referral Yes
[2024-02-22 12:53] LABS: Mononuclear #, Pertinoneal Fl 0.145 10^3/uL; Polynuclear # Cells, Perit 0.051 10^3/uL; RBC Pertioneal Fluid 0 10^3/uL; WBC Peritoneal Fluid 196 /uL
== END ==
PROVIDERS: Internal Medicine Gastroenterology; Radiology Diagnostic Radiology; PCP Nurse Practitioner Family; Visit Provider Nurse Practitioner Family
PROC: (CPT 49082; principal; 2024-02-22 13:00)
DX: K74.60 Unspecified cirrhosis of liver (principal)
CPT/HCPCS: 49083; 80503; 87070; 87075; 87205; 89050

== ENCOUNTER → 2024-02-28 11:43 | Day surgery (SDC) | payer BC, MEDICAID, SELFPAY ==
[2024-02-28 11:54] VITALS: BP 140/75; PULSE 60; RESP 16; TEMP 36.4; O2SAT 97; BMI 30.9
--- NOTE | 2024-02-28 11:59 | US_ITS ---
WS: [email or web address] ULTRASOUND-GUIDED PARACENTESIS CLINICAL INFORMATION: ascites COMPARISON: None. Procedure Informed consent: The risks, benefits, and alternatives of the procedure were discussed with the ara ent. Verbal and written consent was obtained. Timeout: A timeout was performed to confirm the correct patient, procedure, and site. Preparation: A suitable skin site was identified. The patient was prepped and draped in usual sterile fashion. Lidocaine 1% was used for local anesthesia. Catheter: 4 [place] One-step Yueh catheter. Side: LEFT lower quadrant. Fluid Volume: 4300 ml Color: Clear yellow DISPOSITION: Discarded safely. Complications: None. US/US paracentesis abd w [id number] IMPRESSION: Uncomplicated ultrasound-guided paracentesis. Removal of 4300
[2024-02-28 13:12] LABS: Appearance, Peritoneal Fluid Hazy (Clear); Color, Peritoneal Fluid Yellow (Pale Yellow); Cyto Order Verification No Order
[2024-02-28 13:18] LABS: Mononuclear #, Pertinoneal Fl 0.175 10^3/uL; Polynuclear # Cells, Perit 0.083 10^3/uL; RBC Pertioneal Fluid 0 10^3/uL; WBC Peritoneal Fluid 258 /uL
== END ==
LOC: GILAB 11:43
PROVIDERS: Internal Medicine Gastroenterology; Radiology Neuroradiology; PCP Nurse Practitioner Family; Visit Provider Nurse Practitioner Family
PROC: (CPT 49082; principal; 2024-02-28 13:00)
DX: R18.8 Other ascites (principal)
CPT/HCPCS: 49083; 80503; 87070; 87075; 87205; 89050

== ENCOUNTER 2024-03-07 11:55 | Day surgery (SDC) | payer BC, MEDICAID, SELFPAY ==
--- NOTE | 2024-03-07 11:59 | US_ITS ---
WS: [email or web address] ULTRASOUND-GUIDED THERAPEUTIC AND DIAGNOSTIC PARACENTESIS Procedure, risks, and complications have been explained to the patient. Consent is obtained. Utilizing aseptic technique and 1% buffered lidocaine, a small dermatome was made through which a 5 F rench Yueh catheter was inserted. Approximately 5200 ml of clear peritoneal fluid was obtained witho ut difficulty. No complications encountered. US/US paracentesis abd w [id number] IMPRESSION: Uncomplicated paracentesis yielding 5200 ml of peritoneal fluid.
[2024-03-07 12:13] VITALS: BP 124/69; PULSE 61; RESP 16; TEMP 36.4; O2SAT 98; BMI 32.1
[2024-03-07 12:51] LABS: Cyto Order Verification No Order
[2024-03-07 12:57] LABS: Mononuclear #, Pertinoneal Fl 0.138 10^3/uL; Polynuclear # Cells, Perit 0.049 10^3/uL; RBC Pertioneal Fluid 0 10^3/uL; WBC Peritoneal Fluid 187 /uL
[2024-03-07 13:16] LABS: Appearance, Peritoneal Fluid Hazy (Clear); Color, Peritoneal Fluid Pale Yellow (Pale Yellow)
[2024-03-07] MEDS: albumin 50 G/200 ML BAG 60 G IV (13:16)
[2024-03-07 13:17] LABS: Pathology Referral Yes
== END 2024-03-07 13:44 | disposition home or self-care (01) ==
PROVIDERS: Internal Medicine Gastroenterology; Radiology Diagnostic Radiology; PCP Nurse Practitioner Family; Visit Provider Nurse Practitioner Family
PROC: (CPT 49082; principal; 2024-03-07 13:00)
DX: R18.8 Other ascites (principal)
CPT/HCPCS: 49083; 80503; 87070; 87075; 87205; 89050; 96365; P9046

== ENCOUNTER → 2024-03-08 11:07 | Outpatient (BNVA) | payer BC, MEDICAID, SELFPAY | PROVIDERS: PCP Nurse Practitioner Family; Visit Provider Nurse Practitioner Family | DX: N39.0 Urinary tract infection, site not specified (principal) | CPT/HCPCS: 81000; 87077; 87086; 87184 ==

== ENCOUNTER 2024-03-14 11:34 | Day surgery (SDC) | payer BC, MEDICAID, SELFPAY ==
--- NOTE | 2024-03-14 11:44 | US_ITS ---
WS: [email or web address] ULTRASOUND-GUIDED PARACENTESIS CLINICAL INFORMATION: decompensated HCV cirrhosis, ascites, hepatic encephalopathy COMPARISON: None. Procedure Informed consent: The risks, benefits, and alternatives of the procedure were discussed with the ara ent. Verbal and written consent was obtained. Timeout: A timeout was performed to confirm the correct patient, procedure, and site. Preparation: A suitable skin site was identified. The patient was prepped and draped in usual sterile fashion. Lidocaine 1% was used for local anesthesia. Catheter: 4 [place] One-step 25eighteh catheter. Side: LEFT lower quadrant. Fluid Volume: 4900 ml Color: Clear yellow DISPOSITION: Discarded safely. Complications: None. Patient disposition: Discharged from the department in stable condition. US/US paracentesis abd w [id number] IMPRESSION: Uncomplicated ultrasound-guided paracentesis. Removal of 4900 cc
[2024-03-14 11:50] VITALS: BP 132/69; PULSE 65; RESP 16; TEMP 36.8; O2SAT 98
[2024-03-14 11:55] VITALS: BMI 31.6
[2024-03-14 13:18] LABS: Appearance, Peritoneal Fluid Cloudy (Clear); Color, Peritoneal Fluid Yellow (Pale Yellow); Cyto Order Verification No Order; Pathology Referral Yes
[2024-03-14 13:23] LABS: Polynuclear # Cells, Perit 0.051 10^3/uL; RBC Pertioneal Fluid 0 10^3/uL; WBC Peritoneal Fluid 171 /uL
== END 2024-03-14 13:30 | disposition home or self-care (01) ==
LOC: GILAB 11:34
PROVIDERS: Internal Medicine Gastroenterology; Radiology Neuroradiology; PCP Nurse Practitioner Family; Visit Provider Nurse Practitioner Family
PROC: (CPT 49082; principal; 2024-03-14 12:30)
DX: K74.60 Unspecified cirrhosis of liver (principal); R18.8 Other ascites
CPT/HCPCS: 49083; 80503; 87070; 87075; 87205; 89050

== ENCOUNTER 2024-03-16 14:00 | Outpatient (CLI) | payer BC, MEDICAID, SELFPAY ==
--- NOTE | 2024-03-16 14:32 | MM_ITS ---
WS: [email or web address] BILATERAL 3D TOMOSYNTHESIS DIGITAL SCREENING MAMMOGRAPHY WITH CAD CLINICAL INFORMATION: N63.0 - Unspecified lump in unspecified breast HISTORY: Screening mammogram. Bilateral breast lumps COMPARISON: None. TECHNIQUE: Bilateral CC and MLO views. FINDINGS: Scattered fibroglandular densities bilaterally. Palpable marker RIGHT breast near the 3 o'clock posit ion. Normal underlying parenchymal tissue. Ultrasound is pending. No suspicious abnormalities LEFT br east. ULTRASOUND BREAST BILATERAL TECHNIQUE: Ultrasound bilateral breast focused area of concern. CLINICAL INFORMATION: N63.0 - Unspecified lump in unspecified breast FINDINGS: No suspicious findings in the areas of concern bilaterally. RIGHT BREAST: Ultrasound RIGHT breast area of concern 3 o'clock position. Normal underlying parenchym al tissue. LEFT BREAST: Ultrasound LEFT breast 9 o'clock position. Normal underlying parenchymal tissue. MM/MM diag BI tomosynthesis [id number] IMPRESSION: DENSITY: There are scattered areas of fibroglandular density. BI-RADS: 2 - Benign. FOLLOW UP: 1 Year Follow-up Recommend return to annual screening mammography.
== END 2024-03-16 14:26 | disposition home or self-care (01) ==
PROVIDERS: PCP Nurse Practitioner Family; Visit Provider Nurse Practitioner Family
DX: N63.14 Unspecified lump in the right breast, lower inner quadrant (principal); R92.323 Mammographic fibroglandular density, bilateral breasts
CPT/HCPCS: 76642; 77062; G0279

== ENCOUNTER → 2024-03-30 11:36 | Day surgery (SDC) | payer BC, MEDICAID, SELFPAY ==
--- NOTE | 2024-03-30 11:41 | US_ITS ---
WS: [email or web address] ULTRASOUND-GUIDED PARACENTESIS CLINICAL INFORMATION: ascites COMPARISON: None. Procedure Informed consent: The risks, benefits, and alternatives of the procedure were discussed with the ara ent. Verbal and written consent was obtained. Timeout: A timeout was performed to confirm the correct patient, procedure, and site. Preparation: A suitable skin site was identified. The patient was prepped and draped in usual sterile fashion. Lidocaine 1% was used for local anesthesia. Catheter: 4 Nigerien One-step Yueh catheter. Side: LEFT lower quadrant. Fluid Volume: 6000 ml Color: Clear yellow DISPOSITION: Discarded safely. Complications: None. Patient disposition: Discharged from the department in stable condition. US/US paracentesis abd w [id number] IMPRESSION: Uncomplicated ultrasound-guided paracentesis. Removal of 6000 cc
[2024-03-30 11:48] VITALS: BP 135/83; PULSE 67; RESP 16; TEMP 37; O2SAT 97; BMI 32.1
[2024-03-30 12:59] LABS: Mononuclear #, Pertinoneal Fl 0.091 10^3/uL; Polynuclear # Cells, Perit 0.003 10^3/uL; RBC Pertioneal Fluid 0 10^3/uL; WBC Peritoneal Fluid 94 /uL
[2024-03-30 13:14] LABS: Appearance, Peritoneal Fluid Clear (Clear); Color, Peritoneal Fluid Yellow (Pale Yellow); Cyto Order Verification No Order
[2024-03-30] MEDS: albumin 50 G/200 ML BAG 60 G IV (13:30)
== END ==
LOC: GILAB 11:37
PROVIDERS: Internal Medicine Gastroenterology; Radiology Neuroradiology; PCP Nurse Practitioner Family; Visit Provider Nurse Practitioner Family
PROC: (CPT 49082; principal; 2024-03-30 12:30)
DX: R18.8 Other ascites (principal)
CPT/HCPCS: 49083; 80503; 87070; 87075; 87205; 89050; 96365; P9046

== ENCOUNTER 2024-04-04 11:11 | Day surgery (SDC) | payer BC, MEDICAID, SELFPAY ==
--- NOTE | 2024-04-04 11:24 | US_ITS ---
WS: [email or web address] ULTRASOUND-GUIDED PARACENTESIS CLINICAL INFORMATION: ascites COMPARISON: None. Procedure Informed consent: The risks, benefits, and alternatives of the procedure were discussed with the ara ent. Verbal and written consent was obtained. Timeout: A timeout was performed to confirm the correct patient, procedure, and site. Preparation: A suitable skin site was identified. The patient was prepped and draped in usual sterile fashion. Lidocaine 1% was used for local anesthesia. Catheter: 4 Dominican One-step Yueh catheter. Side: LEFT lower quadrant. Fluid Volume: 5000 ml Color: Clear yellow DISPOSITION: Discarded safely. Complications: None. Patient disposition: Discharged from the department in stable condition. US/US paracentesis abd w [id number] IMPRESSION: Uncomplicated ultrasound-guided paracentesis. Removal of 5000 cc
[2024-04-04 11:30] VITALS: BMI 30.7
[2024-04-04 11:36] VITALS: BP 118/79; PULSE 64; RESP 16; TEMP 36.2; O2SAT 96
[2024-04-04 12:28] LABS: Cyto Order Verification No Order
[2024-04-04 12:29] LABS: Appearance, Peritoneal Fluid Cloudy (Clear); Color, Peritoneal Fluid Pale Yellow (Pale Yellow); Pathology Referral Yes
[2024-04-04 12:32] LABS: Mononuclear #, Pertinoneal Fl 0.115 10^3/uL; Polynuclear # Cells, Perit 0.056 10^3/uL; RBC Pertioneal Fluid 1 10^3/uL; WBC Peritoneal Fluid 171 /uL
== END 2024-04-04 12:31 | disposition home or self-care (01) ==
PROVIDERS: Internal Medicine Gastroenterology; Radiology Neuroradiology; PCP Nurse Practitioner Family; Visit Provider Nurse Practitioner Family
PROC: (CPT 49082; principal; 2024-04-04 12:30)
DX: R18.8 Other ascites (principal)
CPT/HCPCS: 49083; 80503; 87070; 87075; 87205; 89050

== ENCOUNTER 2024-04-10 12:41 | Emergency (ER) | payer BC, MEDICAID, SELFPAY ==
[2024-04-10 12:51] VITALS: BP 132/72; PULSE 62; RESP 18; TEMP 36.8; O2SAT 98; BMI 30.4
--- NOTE | 2024-04-10 13:04 | CT_ITS ---
WS: [email or web address] CT ABDOMEN AND PELVIS NONCONTRAST HISTORY: Abdominal pain, LEFT lower quadrant pain for 5 days. TECHNIQUE: Imaging performed through the abdomen and pelvis. Coronal and sagittal reformats are submi tted. All CT scans at [facility] use at least one of these dose optimization techniques: auto mated exposure control; mA and/or kV adjustment per patient size (includes targeted exams where dose is matched to clinical indication); or iterative reconstruction. DLP: 861.33 mGy.cm COMPARISON: 07/30/2023 Lower thorax: Previously described RIGHT pleural effusion has resolved. No pneumonia at the lung base s. Heart size is normal Liver: Shrunken markedly cirrhotic liver. Gallbladder: Prior cholecystectomy. Pancreas: Normal size and attenuation. Normal pancreatic duct. No pancreatitis or mass. Spleen: Mild splenomegaly, 14.5 cm in length. Numerous varices from portal hypertension in the LEFT u pper quadrant extending into the splenic hilum. Adrenal glands: Normal. No mass. Right kidney: Normal size kidney with no mass or hydronephrosis. Left kidney: No obstruction. Nonobstructing 3 mm calcification lower pole. Aorta: Mild atherosclerosis. Large amount of ascites within the peritoneal cavity. Patient has known long-term ascites. No free ai r. GI tract: No obstructive pattern. Abdominal wall: Negative. No hernia. Mild anasarca. Pelvis: Free fluid in the pelvis. Urinary bladder is well distended. Uterus is present. Osseous structures: Schmorl's node superior endplate of L4. CT/CT abdomen pelvis wo con [id number] IMPRESSION: 1. Large amount of ascites. 2. No GI tract obstruction. 3. No free air. 4. Prior cholecystectomy. 5. Advanced cirrhosis with portal hypertension. Numerous varices in the LEFT u pper abdomen. 6. Mild sigmoid diverticulosis.
--- NOTE | 2024-04-10 13:52 | ED_ITS ---
HPI - Abdominal Pain 2 General: Chief Complaint: Abdominal Pain Stated Complaint: herina in pain Time Seen by Provider: 04/10/24 12:48 History of Present Illness: 58-year-old female with a history of lena er failure with ascites presents emergency room complaining of pain in the left lower quadrant she is also had some diarrhea. She is on rifaximin. She denies any medic easier melena. She denies any dysuria urgency or frequency. She states that her hernia is causing pain in this area. She is previously had any incisions in the left lower quadrant. She has a periumbilical incision with no evidence of herniation in that region. Associated Symptoms: Denies chills, dysuria and fever(s) Related Data Home Medications Medication Instructions Recorded Confirmed spironolactone 50 mg tablet 150 mg PO DAILY 11/26/23 04/10/24 rifaximin 550 mg tablet (Xifaxan) 550 mg PO BID 12/10/23 04/10/24 sofosbuvir 400 mg-velpatasvir 100 1 tab PO DAILY 12/28/23 04/10/24 mg tablet (Epclusa) carvedilol 3.125 mg tablet 3.125 mg PO BID 03/06/24 04/10/24 furosemide 40 mg tablet 60 mg PO DAILY 03/06/24 04/10/24 fluoxetine 20 mg capsule 20 mg PO DAILY 03/14/24 04/10/24 Previous Rx's Medication Instructions Recorded premier protein shakes #90 ea 01/19/24 tamsulosin 0.4 mg capsule (Flomax) 0.4 mg PO DAILY #30 caps 03/08/24 Allergies Allergy/AdvReac Type Severity Reaction Status Date / Time tramadol Allergy ADR-Nausea Verified 04/10/24 12:56 NSAIDS (Non-Steroidal AdvReac Unknown Verified 04/10/24 12:55 Anti-Inflamma Review of Systems 2 Const: Denies: fever(s) or chills Card: Denies: chest pain Resp: Denies: dyspnea GI: Reports: abdominal pain : Denies: dysuria, urinary frequency or urinary urgency Musc: Denies: neck pain or back pain Skin/Breast: Denies: rash PFSH ED 2 PFSH: Medical History Cellulitis Cellulitis of leg, right COVID-19 Hepatitis C Family History Mother Hypertension Family/Other Hypertension Denies family history of Diabetes CAD (coronary artery disease) Cancer Social History Smoking and tobacco/nicotine status: never used tobacco/nicotine Alcohol intake: former Substance/Drug Use: never Adopted: No Lives independently: Yes Household members: family Housing: House Physical Exam 2 Const: GENERAL APPEARANCE: cooperative ORIENTATION/CONSCIOUSNESS: Yes awake, Yes oriented to person, Yes oriented to place and Yes oriented to time HENMT: COMMON NORMALS: normocephalic, atraumatic and hearing grossly normal bilaterally HEAD & SCALP: normocephalic and atraumatic Resp: COMMON NORMALS: normal respiratory effort, No retractions, No use of accessory muscles and clear to auscultation bilaterally AUSCULTATION: clear to auscultation bilaterally Cardio: COMMON NORMALS: regular rate, regular rhythm and No murmurs present (Cardio) RATE: regular rate RHYTHM: regular rhythm GI: COMMON NORMALS: No hepatosplenomegaly present INSPECTION: Yes abdominal distension and Yes Fluid wave present AUSCULTATION: Yes normoactive bowel sounds PALPATION: Yes Tenderness to palpation present (GI) (Mild), No Guarding due to palpation present (GI) and Yes No hepatosplenomegaly present PERCUSSION: Fluid wave present Extremity: COMMON NORMALS: normal to inspection, capillary refill normal, no clubbing, cyanosis or edema, no calf tenderness and no pedal edema Neuro: SENSORIUM/ORIENTATION: Yes oriented to person, Yes oriented to place and Yes oriented to time Skin: COMMON NORMALS: no rashes or lesions noted GENERAL SKIN EXAM: no rashes or lesions noted Course 2 Vital Signs: Vital signs: Vital Signs Temperature 98.2 F 04/10/24 12:51 Pulse Rate 55 L 04/10/24 14:30 Respiratory Rate 16 04/10/24 14:30 Blood Pressure 136/73 04/10/24 14:30 Pulse Oximetry 97 04/10/24 14:30 Oxygen Delivery Me thod Room Air 04/10/24 12:51 MDM - Abdominal Pain Medical Decision Making Patient was concerned she had a hernia in the left lower quadrant no hernia noted on the CT. Large amount of ascites. There is some diverticuli but no sign of diverticulitis. Patient has a paracentesis scheduled for tomorrow will discharge patient home and follow-up with the planned paracentesis tomorrow. If pain continues follow-up with primary care. Medical Records I reviewed the patient's medical records. Lab Data I reviewed the patient's lab results. 04/10/24 14:30 04/10/24 14:30 Labs/Radiology: Radiology Impressions Abdomen/Pelvis CT 04/10/24 13:04 IMPRESSION: 1. Large amount of ascites. 2. No GI tract obstruction. 3. No free air. 4. Prior cholecystectomy. 5. Advanced cirrhosis with portal hypertension. Numerous varices in the LEFT upper abdomen. 6. Mild sigmoid diverticulosis. Laboratory Results WBC 5.68 10^3/uL (3.29-11.43) 04/10/24 14:30 RBC 5.05 10^6/uL (3.85-5.65) 04/10/24 14:30 Hgb 14.60 g/dL (11.27-16.99) 04/10/24 14:30 Hct 44.7 % (36-47) 04/10/24 14:30 MCV 88.5 fl (85-98) 04/10/24 14:30 MCH 28.9 pg (27-33) 04/10/24 14:30 MCHC 32.7 g/dL (30-55) 04/10/24 14:30 RDW 14.0 % (12.1-15.1) 04/10/24 14:30 Plt Count 129 10^3/cmm (157-399) L 04/10/24 14:30 MPV 12.3 fL (7.4-10.4) H 04/10/24 14:30 Neut % (Auto) 73.0 % 04/10/24 14:30 Lymph % (Auto) 13.4 % 04/10/24 14:30 [place] % (Auto) 9.7 % 04/10/24 14:30 Eos % (Auto) 2.5 % 04/10/24 14:30 Baso % (Auto) 0.9 % 04/10/24 14:30 Neut # (Auto) 4.15 10^3/uL (1.8-7.7) 04/10/24 14:30 Lymph # (Auto) 0.8 10^3/uL (0.8-4.8) 04/10/24 14:30 [place] # (Auto) 0.6 10^3/uL (0.2-0.9) 04/10/24 14:30 Eos # (Auto) 0.1 10^3/uL (0.0-0.8) 04/10/24 14:30 Baso # (Auto) 0.1 10^3/uL (0.0-0.1) 04/10/24 14:30 Nucleated RBC % (auto) 0 % 04/10/24 14:30 Nucleated RBCs # 0.0 /100WBC 04/10/24 14:30 Sodium 135 mmol/L (136-145) L 04/10/24 14:30 Potassium 3.2 mmol/L (3.5-5.1) L 04/10/24 14:30 Chloride 98 mmol/L (98-107) 04/10/24 14:30 Carbon Dioxide 28 mmol/L (22-29) 04/10/24 14:30 Anion Gap 12.2 (5-19) 04/10/24 14:30 BUN 11 mg/dL (6-20) 04/10/24 14:30 Creatinine 0.9 mg/dL (0.5-0.9) 04/10/24 14:30 GFR Calculation 64.8 mL/min (90-130) L 04/10/24 14:30 Glucose 90 mg/dL (65-115) 04/10/24 14:30 Calculated Osmolality 279 mOsm/kg (285-295) L 04/10/24 14:30 Calcium 8.0 mg/dL (8.5-10.5) L 04/10/24 14:30 Total Bilirubin 2.2 mg/dL (0.15-1.2) H 04/10/24 14:30 AST 31 U/L (0-32) 04/10/24 14:30 ALT 14 U/L (0-33) 04/10/24 14:30 Alkaline Phosphatase 135 U/L (35-105) H 04/10/24 14:30 Total Protein 6.6 g/dL (6.6-8.7) 04/10/24 14:30 Albumin 2.7 g/dL (3.5-5.2) L 04/10/24 14:30 Globulin 3.9 g/dL (1.3-4.6) 04/10/24 14:30 Lipase 50 U/L (13-60) 04/10/24 14:30 Urine Color Yellow (Yellow) 04/10/24 14:10 Urine Appearance Clear (CLEAR) 04/10/24 14:10 Urine pH 6.0 (5-7) 04/10/24 14:10 Ur Specific [place] 1.008 (1.005-1.030) 04/10/24 14:10 Urine Protein Negative (Negative) 04/10/24 14:10 Urine Glucose (UA) Negative (Normal) 04/10/24 14:10 Urine Ketones Negative (Negative) 04/10/24 14:10 Urine Blood Negative (Negative) 04/10/24 14:10 Urine Nitrate Negative (Negative) 04/10/24 14:10 Urine Bilirubin Negative (Negative) 04/10/24 14:10 Urine Urobilinogen 4.0 mg/dL (Negative) H 04/10/24 14:10 Ur Leukocyte Esterase Negative (Negative) 04/10/24 14:10 Urine RBC 0-2 /hpf (0-2) 04/10/24 14:10 Urine WBC 0-5 /hpf (0-5) 04/10/24 14:10 Ur Squamous Epith Cells 0-5 /hpf (0-5) 04/10/24 14:10 Amorphous Sediment Not Reportable 04/10/24 14:10 Urine Bacteria None seen /hpf (NONE) 04/10/24 14:10 Hyaline Casts 2.05 /lpf 04/10/24 14:10 All radiology interpretation(s) finalized by discharge Discharge Plan Discharge Patient Disposition: Home Clinical Impression: Abdominal pain, Cirrhosis of liver, Abdominal ascites Condition: Stable Prescriptions: No Action (DME) premier protein shakes See Rx Instructions .Route .MEDSUPPLY Qty: 90 1RF Rx Instructions: 1 shake po daily tamsulosin [Flomax] 0.4 mg capsule 0.4 mg PO DAILY Qty: 30 0RF spironolactone 50 mg tablet 150 mg PO DAILY sofosbuvir-velpatasvir [Epclusa] 400-100 mg tablet 1 tab PO DAILY Xifaxan 550 mg Tablet 550 mg PO BID fluoxetine 20 mg capsule 20 mg PO DAILY furosemide 40 mg tablet 60 mg PO DAILY carvedilol 3.125 mg tablet 3.125 mg PO BID Discharge Orders: Discharge ED (Routine); Ordered 04/10/24 Ordered By: Sergei Nieto Referrals: Estrella Gerard FNP [Primary Care Provider] - Discharge Diet: Usual diet Discharge Activity: Resume usual activity Patient Instructions: Abdominal Pain (ED), Opioid Safety, Pain Management Activity Restrictions/Additional Instructions: Thank you for choosing [facility] for your healthcare needs today. It is very important that you follow up as instructed or that you return to the Emergency Department should you have concerns or if your condition changes or worsens in any way. You were seen in the emergency room with complaint of abdominal pain. Your white count is normal and the CT did not show any acute pathology. You do have a large amount of fluid in your abdomen consistent with your known liver cirrhosis. You had mentioned that you are scheduled to have a paracentesis tomorrow you should go plan forward to this as planned. There was some diverticuli on the CT but no signs of acute infection. There is no abdominal wall hernias noted on the CT. Follow-up with your primary care doctor. Coding Level of Care Code ED [employer] Special [employer] Associate for Vera Freeman
[2024-04-10 14:30] VITALS: BP 136/73; PULSE 55; RESP 16; O2SAT 97
[2024-04-10 14:36] LABS: Basophils # 0.1 10^3/uL (0.0-0.1); Basophils % 0.9 %; Eosinophils # 0.1 10^3/uL (0.0-0.8); Eosinophils % 2.5 %; Hematocrit 44.7 % (36-47); Lymphocytes # 0.8 10^3/uL (0.8-4.8); Lymphocytes % 13.4 %; Mean Corpuscular HGB Conc 32.7 g/dL (30-55); Mean Corpuscular Hemoglobin 28.9 pg (27-33); Mean Corpuscular Volume 88.5 fl (85-98); Mean Platelet Volume 12.3 fL (7.4-10.4); Monocytes # 0.6 10^3/uL (0.2-0.9); Monocytes % 9.7 %; Neutrophils # 4.15 10^3/uL (1.8-7.7); Nucleated Red Blood Cells % 0 %; Platelet Count 129 10^3/cmm (157-399); Red Blood Count 5.05 10^6/uL (3.85-5.65); White Blood Count 5.68 10^3/uL (3.29-11.43)
[2024-04-10 14:43] LABS: Bilirubin Urine Negative (Negative); Blood Urine Negative (Negative); Glucose Urine UA Negative (Normal); Ketones Urine Negative (Negative); Leukocyte Esterase Urine Negative (Negative); Nitrate Urine Negative (Negative); Protein Urine Negative (Negative); Specific Gravity, Urine 1.008 (1.005-1.030); Urine Appearance Clear (CLEAR); Urine Color Yellow (Yellow)
[2024-04-10 14:49] LABS: Add Urine Microscopic? YES; Bacteria Urine None Seen /hpf; Hyaline Casts Urine 2.05 /lpf; RBC Urine 0-2 /hpf (0-2); Squamous Epithelial Cell Urine 0-5 /hpf (0-5); WBC Urine 0-5 /hpf (0-5)
[2024-04-10 14:58] LABS: Alanine Aminotransferase 14 U/L (0-33); Albumin Level 2.7 g/dL (3.5-5.2); Alkaline Phosphatase 135 U/L (35-105); Anion Gap 12.2 (5-19); Aspartate Amino Transferase 31 U/L (0-32); Blood Urea Nitrogen 11 mg/dL (6-20); Carbon Dioxide 28 mmol/L (22-29); Chloride 98 mmol/L (98-107); Creatinine Clr Calc Pharmacy 74.2679; Globulin 3.9 g/dL (1.3-4.6); Glomerular Filtration Rate 64.8 mL/min (90-130); Glucose 90 mg/dL (65-115); Lipase 50 U/L (13-60); Osmolality Calculated 279 mOsm/kg (285-295); Potassium 3.2 mmol/L (3.5-5.1); Sodium 135 mmol/L (136-145); Total Bilirubin 2.2 mg/dL (0.15-1.2); Total Protein 6.6 g/dL (6.6-8.7)
[2024-04-10 15:26] VITALS: BP 143/77; PULSE 61; RESP 15; O2SAT 94
== END 2024-04-10 15:28 | disposition home or self-care (01) ==
PROVIDERS: Emergency Provider Family Medicine; PCP Nurse Practitioner Family
DX: K74.60 Unspecified cirrhosis of liver (principal); R10.32 Left lower quadrant pain; R18.8 Other ascites
CPT/HCPCS: 74176; 80053; 81001; 83690; 85025; 99284

== ENCOUNTER 2024-04-11 11:45 | Day surgery (SDC) | payer BC, MEDICAID, SELFPAY ==
--- NOTE | 2024-04-11 12:02 | US_ITS ---
WS: [email or web address] ULTRASOUND-GUIDED PARACENTESIS CLINICAL INFORMATION: decompensated HCV cirrhosis COMPARISON: None. Procedure Informed consent: The risks, benefits, and alternatives of the procedure were discussed with the ara ent. Verbal and written consent was obtained. Timeout: A timeout was performed to confirm the correct patient, procedure, and site. Preparation: A suitable skin site was identified. The patient was prepped and draped in usual sterile fashion. Lidocaine 1% was used for local anesthesia. Catheter: 4 Tongan One-step [place] catheter. Side: LEFT lower quadrant. Fluid Volume: 4400 ml Color: Clear yellow DISPOSITION: Discarded safely. Complications: None. Patient disposition: Discharged from the department in stable condition. US/US paracentesis abd w [id number] IMPRESSION: Uncomplicated ultrasound-guided paracentesis. Removal of 4400 cc
[2024-04-11 14:19] LABS: Cyto Order Verification No Order
[2024-04-11 14:34] LABS: Mononuclear #, Pertinoneal Fl 0.145 10^3/uL; Polynuclear # Cells, Perit 0.071 10^3/uL; RBC Pertioneal Fluid 1 10^3/uL; WBC Peritoneal Fluid 216 /uL
[2024-04-11 14:39] LABS: Appearance, Peritoneal Fluid Hazy (Clear); Color, Peritoneal Fluid Yellow (Pale Yellow); Pathology Referral Yes
== END 2024-04-11 13:30 | disposition home or self-care (01) ==
LOC: GILAB 11:45
PROVIDERS: Internal Medicine Gastroenterology; Radiology Neuroradiology; PCP Nurse Practitioner Family; Visit Provider Nurse Practitioner Family
PROC: (CPT 49082; principal; 2024-04-11 12:30)
DX: K74.69 Other cirrhosis of liver (principal)
CPT/HCPCS: 49083; 80503; 87070; 87075; 87205; 89050

== ENCOUNTER → 2024-04-18 11:43 | Day surgery (SDC) | payer BC, MEDICAID, SELFPAY ==
--- NOTE | 2024-04-18 11:51 | US_ITS ---
WS: [id number] ULTRASOUND-GUIDED THERAPEUTIC AND DIAGNOSTIC PARACENTESIS Procedure, risks, and complications have been explained to the patient. Consent is obtained. Utilizing aseptic technique and 1% buffered lidocaine, a small dermatome was made through which a 5 F rench Yueh catheter was inserted. Approximately 4500 ml of clear peritoneal fluid was obtained witho ut difficulty. No complications encountered. US/US paracentesis abd w [id number] IMPRESSION: Uncomplicated paracentesis yielding 4500 ml of peritoneal fluid.
[2024-04-18 12:07] VITALS: BMI 31.4
[2024-04-18 12:50] LABS: RBC Pertioneal Fluid 0 10^3/uL
[2024-04-18 12:53] LABS: Mononuclear #, Pertinoneal Fl 0.134 10^3/uL; Polynuclear # Cells, Perit 0.042 10^3/uL; WBC Peritoneal Fluid 176 /uL
[2024-04-18 12:55] LABS: Appearance, Peritoneal Fluid Hazy (Clear); Color, Peritoneal Fluid Yellow (Pale Yellow)
[2024-04-18 12:56] LABS: Cyto Order Verification No Order; Pathology Referral Yes
== END ==
LOC: GILAB 11:43
PROVIDERS: Radiology Diagnostic Radiology; PCP Nurse Practitioner Family; Visit Provider Internal Medicine Gastroenterology
PROC: (CPT 49082; principal; 2024-04-18 12:30)
DX: R18.8 Other ascites (principal)
CPT/HCPCS: 49083; 80503; 87070; 87075; 87205; 89050

== ENCOUNTER 2024-04-25 11:23 | Day surgery (SDC) | payer BC, MEDICAID, SELFPAY ==
--- NOTE | 2024-04-25 11:28 | US_ITS ---
WS: [email or web address] ULTRASOUND-GUIDED PARACENTESIS CLINICAL INFORMATION: ascites COMPARISON: None. Procedure Informed consent: The risks, benefits, and alternatives of the procedure were discussed with the ara ent. Verbal and written consent was obtained. Timeout: A timeout was performed to confirm the correct patient, procedure, and site. Preparation: A suitable skin site was identified. The patient was prepped and draped in usual sterile fashion. Lidocaine 1% was used for local anesthesia. Catheter: 4 Ukrainian One-step Yueh catheter. Side: LEFT lower quadrant. Fluid Volume: 7100 ml Color: Clear yellow DISPOSITION: Discarded safely. Complications: None. Patient disposition: Discharged from the department in stable condition. US/US paracentesis abd w [id number] IMPRESSION: Uncomplicated ultrasound-guided paracentesis. Removal of 7100 cc
[2024-04-25 11:36] VITALS: BP 179/93; PULSE 76; RESP 18; TEMP 36.1; O2SAT 98; BMI 32.3
[2024-04-25 12:29] LABS: Cyto Order Verification No Order
[2024-04-25 12:37] LABS: Appearance, Peritoneal Fluid Cloudy (Clear); Color, Peritoneal Fluid Pale Yellow (Pale Yellow); Mononuclear #, Pertinoneal Fl 0.103 10^3/uL; Pathology Referral Yes; Polynuclear # Cells, Perit 0.029 10^3/uL; RBC Pertioneal Fluid 0 10^3/uL; WBC Peritoneal Fluid 132 /uL
[2024-04-25] MEDS: albumin 12.5 GM/50 ML VIAL IV (13:13)
== END 2024-04-25 13:30 | disposition home or self-care (01) ==
LOC: GILAB 11:23
PROVIDERS: Radiology Neuroradiology; PCP Nurse Practitioner Family; Visit Provider Internal Medicine Gastroenterology
PROC: (CPT 49082; principal; 2024-04-25 12:30)
DX: R18.8 Other ascites (principal)
CPT/HCPCS: 49083; 80503; 87070; 87075; 87205; 89050; 96365; P9047

== ENCOUNTER 2024-05-02 11:37 | Day surgery (SDC) | payer BC, MEDICAID, SELFPAY ==
--- NOTE | 2024-05-02 11:44 | US_ITS ---
WS: [id number] ULTRASOUND-GUIDED THERAPEUTIC AND DIAGNOSTIC PARACENTESIS Procedure, risks, and complications have been explained to the patient. Consent is obtained. Utilizing aseptic technique and 1% buffered lidocaine, a small dermatome was made through which a 5 F rench Yueh catheter was inserted. Approximately 6600 ml of clear peritoneal fluid was obtained witho ut difficulty. No complications encountered. Specimen collected for analysis as requested. US/US paracentesis abd w [id number] IMPRESSION: Uncomplicated paracentesis yielding 6600 ml of peritoneal fluid.
[2024-05-02 11:47] VITALS: BMI 31.9
[2024-05-02 11:48] VITALS: BP 142/77; PULSE 68; RESP 18; TEMP 36.8; O2SAT 96
[2024-05-02 12:39] LABS: Appearance, Peritoneal Fluid Hazy (Clear); Color, Peritoneal Fluid Yellow (Pale Yellow); Cyto Order Verification No Order
[2024-05-02 12:45] LABS: Mononuclear #, Pertinoneal Fl 0.112 10^3/uL; Polynuclear # Cells, Perit 0.034 10^3/uL; RBC Pertioneal Fluid 0 10^3/uL; WBC Peritoneal Fluid 146 /uL
[2024-05-02] MEDS: albumin 12.5 GM/50 ML VIAL IV (13:11)
== END 2024-05-02 13:19 | disposition home or self-care (01) ==
PROVIDERS: Radiology Diagnostic Radiology; PCP Nurse Practitioner Family; Visit Provider Internal Medicine Gastroenterology
PROC: (CPT 49082; principal; 2024-05-02 12:30)
DX: K74.60 Unspecified cirrhosis of liver (principal); B19.20 Unspecified viral hepatitis C without hepatic coma; R18.8 Other ascites
CPT/HCPCS: 49083; 80503; 87070; 87075; 87205; 89050; P9047

== ENCOUNTER 2024-05-09 10:59 | Day surgery (SDC) | payer BC, MEDICAID, SELFPAY ==
[2024-05-09 11:28] VITALS: BP 127/79; PULSE 64; RESP 18; TEMP 36.4; O2SAT 97; BMI 31.2
--- NOTE | 2024-05-09 11:31 | US_ITS ---
WS: [email or web address] ULTRASOUND-GUIDED PARACENTESIS CLINICAL INFORMATION: ascites COMPARISON: None. Procedure Informed consent: The risks, benefits, and alternatives of the procedure were discussed with the patient. Verbal and written consent was obtained. Timeout: A timeout was performed to confirm the correct patient, procedure, and site. Preparation: A suitable skin site was identified. The patient was prepped and draped in usual sterile fashion. Lidocaine 1% was used for local anesthesia. Catheter: 4 English One-step Yueh catheter. Side: LEFT lower quadrant. Fluid Volume: 6000 ml Color: Light orange DISPOSITION: Discarded safely. Complications: None. Patient disposition: Discharged from the department in stable condition. US/US paracentesis abd w [id number] IMPRESSION: Uncomplicated ultrasound-guided paracentesis. Removal of 6000 cc
[2024-05-09] MEDS: albumin 12.5 GM/50 ML VIAL IV (13:15)
[2024-05-09 13:18] LABS: Cyto Order Verification No Order
[2024-05-09 13:21] LABS: Mononuclear #, Pertinoneal Fl 0.075 10^3/uL; Polynuclear # Cells, Perit 0.006 10^3/uL; RBC Pertioneal Fluid 7 10^3/uL; WBC Peritoneal Fluid 81 /uL
[2024-05-09 13:34] LABS: INR 1.24 (0.8-1.2)
[2024-05-09 13:36] LABS: Appearance, Peritoneal Fluid Cloudy (Clear); Color, Peritoneal Fluid Amber (Pale Yellow); Pathology Referral Yes
[2024-05-09 13:38] LABS: Alanine Aminotransferase 18 U/L (0-33); Albumin Level 2.2 g/dL (3.5-5.2); Alkaline Phosphatase 143 U/L (35-105); Anion Gap 8.8 (5-19); Aspartate Amino Transferase 38 U/L (0-32); Blood Urea Nitrogen 13 mg/dL (6-20); Calcium 7.7 mg/dL (8.5-10.5); Carbon Dioxide 27 mmol/L (22-29); Chloride 100 mmol/L (98-107); Creatinine Clr Calc Pharmacy 83.6679; Glomerular Filtration Rate 73.9 mL/min (90-130); Glucose 108 mg/dL (65-115); Osmolality Calculated 277 mOsm/kg (285-295); Sodium 133 mmol/L (136-145); Total Bilirubin 0.7 mg/dL (0.15-1.2); Total Protein 5.2 g/dL (6.6-8.7)
[2024-05-09 13:42] LABS: Potassium 2.8 mmol/L (3.5-5.1)
--- NOTE | 2024-05-09 14:10 | PC.NURSE ---
Leah will notify Dr. Freitas and his nurse and they will contact pt.
== END 2024-05-09 13:33 | disposition home or self-care (01) ==
LOC: GILAB 10:59
PROVIDERS: Radiology Neuroradiology; PCP Nurse Practitioner Family; Visit Provider Internal Medicine Gastroenterology
PROC: (CPT 49082; principal; 2024-05-09 12:30)
DX: R18.8 Other ascites (principal)
CPT/HCPCS: 49083; 80053; 80503; 85610; 87070; 87075; 87205; 89050; 96365; P9047

== ENCOUNTER 2024-05-16 10:49 | Day surgery (SDC) | payer BC, MEDICAID, SELFPAY ==
[2024-05-16 11:21] VITALS: BMI 31.2
[2024-05-16 11:28] VITALS: BP 130/71; PULSE 64; RESP 18; TEMP 36.4; O2SAT 95
--- NOTE | 2024-05-16 11:41 | US_ITS ---
WS: [email or web address] ULTRASOUND-GUIDED THERAPEUTIC AND DIAGNOSTIC PARACENTESIS Procedure, risks, and complications have been explained to the patient. Consent is obtained. Utilizing aseptic technique and 1% buffered lidocaine, a small dermatome was made through which a 5 Armenian Yueh catheter was inserted. Approximately 5500 ml of dark yellow peritoneal fluid was obtained without difficulty. No complications encountered. Specimen collected for analysis as requested. US/US paracentesis abd w [id number] IMPRESSION: Uncomplicated paracentesis yielding 5500 ml of peritoneal fluid.
[2024-05-16 13:08] LABS: Cyto Order Verification No Order
[2024-05-16 13:17] LABS: Color, Peritoneal Fluid Pale Yellow (Pale Yellow); Polynuclear # Cells, Perit 0.043 10^3/uL; RBC Pertioneal Fluid 1 10^3/uL; WBC Peritoneal Fluid 153 /uL
[2024-05-16 13:18] LABS: Appearance, Peritoneal Fluid Hazy (Clear); Pathology Referral Yes
[2024-05-16 13:59] LABS: Chol HDL Ratio 2.46 mg/dL (0.0-4.40); Cholesterol 113 mg/dL (0-200); Estmated Average Glucose 91; HDL Cholesterol 46 mg/dL (60-100); Hemoglobin A1C 4.8 % (4.0-6.0); LDL Cholesterol Calculated 50 mg/dL (50-129); LDL HDL Ratio 1.09 RATIO (0.00-3.22); Triglycerides 86 mg/dL (0-150)
== END 2024-05-16 13:40 | disposition home or self-care (01) ==
LOC: GILAB 10:49
PROVIDERS: Psychiatry & Neurology Psychiatry; Radiology Diagnostic Radiology; PCP Nurse Practitioner Family; Visit Provider Internal Medicine Gastroenterology
PROC: (CPT 49082; principal; 2024-05-16 12:00)
DX: R18.8 Other ascites (principal); K74.60 Unspecified cirrhosis of liver
CPT/HCPCS: 49083; 80061; 80503; 83036; 87070; 87075; 87205; 89050

== ENCOUNTER 2024-05-23 09:37 | Day surgery (SDC) | payer BC, MEDICAID, SELFPAY ==
--- NOTE | 2024-05-23 09:38 | US_ITS ---
WS: [email or web address] ULTRASOUND-GUIDED PARACENTESIS CLINICAL INFORMATION: Ascites COMPARISON: None. Procedure Informed consent: The risks, benefits, and alternatives of the procedure were discussed with the patient. Verbal and written consent was obtained. Timeout: A timeout was performed to confirm the correct patient, procedure, and site. Preparation: A suitable skin site was identified. The patient was prepped and draped in usual sterile fashion. Lidocaine 1% was used for local anesthesia. Catheter: 4 Tajik One-step Yueh catheter. Side: LEFT lower quadrant. Fluid Volume: 6200 ml Color: Clear yellow DISPOSITION: Discarded safely. Complications: None. Patient disposition: Discharged from the department in stable condition. US/US paracentesis abd w [id number] IMPRESSION: Uncomplicated ultrasound-guided paracentesis. Removal of 6200 cc
[2024-05-23 09:44] VITALS: BP 147/74; PULSE 73; RESP 18; TEMP 36.6; O2SAT 99
[2024-05-23 10:28] LABS: Cyto Order Verification No Order
[2024-05-23 10:29] LABS: Appearance, Pleural Fluid CLEAR (CLEAR); Color, Pleural Fluid Pale Yellow (Pale Yellow); PATH Referal YES
[2024-05-23 10:34] LABS: Mononuclear %, Pleural Fluid 80 %; Polynuclear Cells, Pleural % 20 %
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
== END 2024-05-23 10:55 | disposition home or self-care (01) ==
LOC: GILAB 09:37
PROVIDERS: Radiology Neuroradiology; PCP Nurse Practitioner Family; Visit Provider Internal Medicine Gastroenterology
PROC: (CPT 49082; principal; 2024-05-23 09:30)
DX: R18.8 Other ascites (principal)
CPT/HCPCS: 49083; 80503; 87070; 87075; 87205; 89050

== ENCOUNTER → 2024-05-30 11:09 | Day surgery (SDC) | payer OTHER, BC, MEDICAID, SELFPAY ==
[2024-05-17 15:33] VITALS: BP 150/84; BMI 31.3
--- NOTE | 2024-05-30 11:32 | US_ITS ---
WS: [email or web address] ULTRASOUND-GUIDED THERAPEUTIC AND DIAGNOSTIC PARACENTESIS Procedure, risks, and complications have been explained to the patient. Consent is obtained. Utilizing aseptic technique and 1% buffered lidocaine, a small dermatome was made through which a 5 Bermudian Yueh catheter was inserted. Approximately 6300 ml of clear peritoneal fluid was obtained without difficulty. No complications encountered. Specimen collected for analysis. US/US paracentesis abd w [id number] IMPRESSION: Uncomplicated paracentesis yielding 6300 ml of peritoneal fluid.
[2024-05-30 12:31] LABS: Body Fluid Polynuclear #Cells 0.018; Body Fluid WBC 95 /uL; Monocytes # Body Fluid 0.077; RBC, Body Fluid 0 10^3/uL
[2024-05-30 13:14] LABS: Color, Body Fluid PALE YELLOW; Fluid Laterality PERITONEAL FLUID
[2024-05-30 13:15] LABS: Apprearance, Body Fluid CLOUDY
[2024-05-30 13:30] LABS: Cyto Order Verification Order Verified
== END ==
LOC: GILAB 11:10
PROVIDERS: Radiology Diagnostic Radiology; PCP Nurse Practitioner Family; Visit Provider Internal Medicine Gastroenterology
PROC: (CPT 49082; principal; 2024-05-30 12:00)
DX: K70.30 Alcoholic cirrhosis of liver without ascites (principal)
CPT/HCPCS: 49083; 80503; 87070; 87075; 87205; 88112; 88305; 89050

== ENCOUNTER 2024-06-06 10:25 | Day surgery (SDC) | payer BC, MEDICAID, SELFPAY ==
[2024-05-17 15:33] VITALS: BP 150/84; BMI 31.3
[2024-06-06 10:45] VITALS: BP 140/83; PULSE 75; RESP 16; TEMP 36.3; O2SAT 98
--- NOTE | 2024-06-06 11:23 | US_ITS ---
WS: [email or web address] ULTRASOUND-GUIDED PARACENTESIS CLINICAL INFORMATION: ascites Procedure Informed consent: The risks, benefits, and alternatives of the procedure were discussed with the patient. Verbal and written consent was obtained. Timeout: A timeout was performed to confirm the correct patient, procedure, and site. Preparation: A suitable skin site was identified. The patient was prepped and draped in usual sterile fashion. Lidocaine 1% was used for local anesthesia. Catheter: 4 Danish One-step Yueh catheter. Side: LEFT lower quadrant. Fluid Volume: 3750 ml Color: Clear yellow DISPOSITION: Discarded safely. Complications: None. Patient disposition: Discharged from the department in stable condition. US/US paracentesis abd w [id number] IMPRESSION: Uncomplicated ultrasound-guided paracentesis. Removal of 3750 cc
[2024-06-06 12:24] LABS: Cyto Order Verification No Order
[2024-06-06 12:26] LABS: Body Fluid WBC 99 /uL; Monocytes # Body Fluid 0.079; RBC, Body Fluid 0 10^3/uL
[2024-06-06 12:45] LABS: Color, Body Fluid YELLOW
[2024-06-06 12:47] LABS: Apprearance, Body Fluid CLOUDY; Fluid Laterality PERITONEAL FLUID
== END 2024-06-06 12:39 | disposition home or self-care (01) ==
LOC: GILAB 10:25
PROVIDERS: Radiology Neuroradiology; PCP Nurse Practitioner Family; Visit Provider Internal Medicine Gastroenterology
PROC: (CPT 49082; principal; 2024-06-06 12:00)
DX: R18.8 Other ascites (principal)
CPT/HCPCS: 49083; 80503; 87070; 87075; 87205; 89050

== ENCOUNTER → 2024-06-13 11:13 | Day surgery (SDC) | payer BC, MEDICAID, SELFPAY ==
[2024-05-17 15:33] VITALS: BP 150/84; BMI 31.3
--- NOTE | 2024-06-13 11:33 | US_ITS ---
WS: [email or web address] ULTRASOUND-GUIDED THERAPEUTIC AND DIAGNOSTIC PARACENTESIS Procedure, risks, and complications have been explained to the patient. Consent is obtained. Utilizing aseptic technique and 1% buffered lidocaine, a small dermatome was made through which a 5 Uzbek Yueh catheter was inserted. Approximately 6400 ml of clear peritoneal fluid was obtained without difficulty. No complications encountered. Specimen collected for analysis. US/US paracentesis abd w [id number] IMPRESSION: Uncomplicated paracentesis yielding 6400 ml of peritoneal fluid.
[2024-06-13 11:35] VITALS: BP 120/65; PULSE 62; RESP 17; TEMP 36.2; O2SAT 99; BMI 33.6
[2024-06-13 13:08] LABS: Appearance, Peritoneal Fluid Hazy (Clear); Color, Peritoneal Fluid Yellow (Pale Yellow); Cyto Order Verification No Order; Pathology Referral Yes
[2024-06-13 13:10] LABS: Mononuclear #, Pertinoneal Fl 0.102 10^3/uL; Polynuclear # Cells, Perit 0.025 10^3/uL; RBC Pertioneal Fluid 0 10^3/uL; WBC Peritoneal Fluid 127 /uL
[2024-06-13] MEDS: albumin 50 G/200 ML BAG 60 G IV (13:30)
== END ==
LOC: GILAB 11:13
PROVIDERS: Radiology Diagnostic Radiology; PCP Nurse Practitioner Family; Visit Provider Internal Medicine Gastroenterology
PROC: (CPT 49082; principal; 2024-06-13 12:00)
DX: K74.69 Other cirrhosis of liver (principal); B19.20 Unspecified viral hepatitis C without hepatic coma; R18.8 Other ascites; K76.82 Hepatic encephalopathy
CPT/HCPCS: 49083; 80503; 87070; 87075; 87205; 89050; P9046

== ENCOUNTER 2024-06-20 11:06 | Day surgery (SDC) | payer BC, MEDICAID, SELFPAY ==
[2024-05-17 15:33] VITALS: BP 150/84; BMI 31.3
--- NOTE | 2024-06-20 11:39 | US_ITS ---
WS: [email or web address] ULTRASOUND-GUIDED PARACENTESIS CLINICAL INFORMATION: Ascites Procedure Informed consent: The risks, benefits, and alternatives of the procedure were discussed with the patient. Verbal and written consent was obtained. Timeout: A timeout was performed to confirm the correct patient, procedure, and site. Preparation: A suitable skin site was identified. The patient was prepped and draped in usual sterile fashion. Lidocaine 1% was used for local anesthesia. Catheter: 4 Frisian One-step Yueh catheter. Side: LEFT lower quadrant. Fluid Volume: 5500 ml Color: Clear yellow DISPOSITION: Discarded safely. Complications: None. Patient disposition: Discharged from the department in stable condition. US/US paracentesis abd w [id number] IMPRESSION: Uncomplicated ultrasound-guided paracentesis. Removal of 5500 cc
[2024-06-20 11:41] VITALS: BP 140/73; PULSE 62; RESP 16; TEMP 36.2; O2SAT 99; BMI 33.3
[2024-06-20 13:22] LABS: Cyto Order Verification No Order
[2024-06-20] MEDS: ALBUMIN IV (13:24)
[2024-06-20 13:36] LABS: Mononuclear %, Pleural Fluid 79 %; Polynuclear Cells, Pleural % 21 %
[2024-06-20 14:08] LABS: Appearance, Pleural Fluid CLOUDY (CLEAR); Color, Pleural Fluid Pale Yellow (Pale Yellow)
[2024-06-20 14:09] LABS: PATH Referal YES
== END 2024-06-20 13:53 | disposition home or self-care (01) ==
PROVIDERS: Internal Medicine Gastroenterology; Radiology Diagnostic Radiology; PCP Nurse Practitioner Family
PROC: (CPT 49082; principal; 2024-06-20 12:00)
DX: R18.8 Other ascites (principal)
CPT/HCPCS: 49083; 80503; 87070; 87075; 87205; 89050; 96365; P9047

== ENCOUNTER 2024-06-27 11:40 | Day surgery (SDC) | payer BC, MEDICAID, SELFPAY ==
[2024-05-17 15:33] VITALS: BP 150/84; BMI 31.3
--- NOTE | 2024-06-27 11:51 | US_ITS ---
WS: [email or web address] ULTRASOUND-GUIDED THERAPEUTIC AND DIAGNOSTIC PARACENTESIS Procedure, risks, and complications have been explained to the patient. Consent is obtained. Utilizing aseptic technique and 1% buffered lidocaine, a small dermatome was made through which a 5 Irish Yueh catheter was inserted. Approximately 5100 ml of clear peritoneal fluid was obtained without difficulty. No complications encountered. US/US paracentesis abd w [id number] IMPRESSION: Uncomplicated paracentesis yielding 5100 ml of peritoneal fluid.
[2024-06-27 11:57] VITALS: BP 130/65; PULSE 60; RESP 16; TEMP 36.5; O2SAT 95
[2024-06-27 12:49] LABS: Cyto Order Verification No Order
[2024-06-27 12:50] LABS: Apprearance, Body Fluid CLOUDY; Color, Body Fluid YELLOW; PATH Referral YES
[2024-06-27 12:51] LABS: Body Fluid Polynuclear #Cells 0.019; Body Fluid WBC 99 /uL; RBC, Body Fluid 0 10^3/uL
[2024-06-27 13:08] LABS: Fluid Laterality PERITONEAL FLUID
== END 2024-06-27 13:15 | disposition home or self-care (01) ==
LOC: GILAB 11:40
PROVIDERS: Radiology Diagnostic Radiology; PCP Nurse Practitioner Family; Visit Provider Internal Medicine Gastroenterology
PROC: (CPT 49082; principal; 2024-06-27 12:00)
DX: R18.8 Other ascites (principal); B19.20 Unspecified viral hepatitis C without hepatic coma
CPT/HCPCS: 49083; 80503; 87070; 87075; 87205; 89050

== ENCOUNTER → 2024-07-04 11:35 | Day surgery (SDC) | payer BC, MEDICAID, SELFPAY ==
[2024-05-17 15:33] VITALS: BP 150/84; BMI 31.3
[2024-07-04 11:47] VITALS: BP 161/81; PULSE 63; RESP 18; TEMP 36.4; O2SAT 97; BMI 33.4
--- NOTE | 2024-07-04 12:36 | US_ITS ---
WS: [email or web address] ULTRASOUND-GUIDED PARACENTESIS CLINICAL INFORMATION: cirrosis, ascities COMPARISON: None. Procedure Informed consent: The risks, benefits, and alternatives of the procedure were discussed with the patient. Verbal and written consent was obtained. Timeout: A timeout was performed to confirm the correct patient, procedure, and site. Preparation: A suitable skin site was identified. The patient was prepped and draped in usual sterile fashion. Lidocaine 1% was used for local anesthesia. Catheter: 4 Kuwaiti One-step [employer] catheter. Side: LEFT lower quadrant. Fluid Volume: 4900 ml Color: clear yellow DISPOSITION: Discarded safely. Complications: None. Patient disposition: Discharged from the department in stable condition. US/US paracentesis abd w [id number] IMPRESSION: Uncomplicated ultrasound-guided paracentesis. Removal of 4900 cc
[2024-07-04 13:40] LABS: Cyto Order Verification No Order
[2024-07-04 13:47] LABS: Body Fluid Polynuclear #Cells 0.017; Body Fluid WBC 92 /uL; Monocytes # Body Fluid 0.075; RBC, Body Fluid 0 10^3/uL
[2024-07-04 13:56] LABS: Apprearance, Body Fluid CLOUDY; Color, Body Fluid PALE YELLOW
== END ==
LOC: GILAB 11:35
PROVIDERS: Radiology Neuroradiology; PCP Nurse Practitioner Family; Visit Provider Internal Medicine Gastroenterology
PROC: (CPT 49082; principal; 2024-07-04 12:00)
DX: R18.8 Other ascites (principal); K74.60 Unspecified cirrhosis of liver
CPT/HCPCS: 49083; 80503; 87070; 87075; 87205; 89050

== ENCOUNTER 2024-07-06 13:52 | Outpatient (CLI) | payer BC, MEDICAID, SELFPAY ==
[2024-05-17 15:33] VITALS: BP 150/84; BMI 31.3
[2024-07-06 16:29] LABS: Basophils # 0.1 10^3/uL (0.0-0.1); Basophils % 1.3 %; Eosinophils # 0.2 10^3/uL (0.0-0.8); Eosinophils % 4.6 %; Hematocrit 42.8 % (36-47); Lymphocytes # 0.9 10^3/uL (0.8-4.8); Lymphocytes % 16.9 %; Mean Corpuscular HGB Conc 31.8 g/dL (30-55); Mean Corpuscular Hemoglobin 28.1 pg (27-33); Mean Corpuscular Volume 88.4 fl (85-98); Mean Platelet Volume 12.1 fL (7.4-10.4); Monocytes # 0.4 10^3/uL (0.2-0.9); Monocytes % 7.7 %; Neutrophils % 69.1 %; Nucleated Red Blood Cells % 0 %; Platelet Count 110 10^3/cmm (157-399); Red Blood Count 4.84 10^6/uL (3.85-5.65); Red Cell Distribution Width 13.5 % (12.1-15.1); White Blood Count 5.21 10^3/uL (3.29-11.43)
[2024-07-06 16:42] LABS: INR 1.19 (0.8-1.2)
[2024-07-06 17:17] LABS: Alanine Aminotransferase 16 U/L (0-33); Albumin Level 2.6 g/dL (3.5-5.2); Alkaline Phosphatase 127 U/L (35-105); Anion Gap 12.6 (5-19); Aspartate Amino Transferase 31 U/L (0-32); Blood Urea Nitrogen 15 mg/dL (6-20); Calcium 8.2 mg/dL (8.5-10.5); Carbon Dioxide 29 mmol/L (22-29); Chloride 98 mmol/L (98-107); Globulin 3.6 g/dL (1.3-4.6); Glomerular Filtration Rate 57.1 mL/min (90-130); Glucose 148 mg/dL (65-115); Osmolality Calculated 286 mOsm/kg (285-295); Potassium 3.6 mmol/L (3.5-5.1); Sodium 136 mmol/L (136-145); Total Bilirubin 1.2 mg/dL (0.15-1.2); Total Protein 6.2 g/dL (6.6-8.7)
== END 2024-07-06 13:53 | disposition home or self-care (01) ==
LOC: LAB 13:54
PROVIDERS: PCP Nurse Practitioner Family; Visit Provider Internal Medicine Gastroenterology
DX: Z01.818 Encounter for other preprocedural examination (principal); K76.82 Hepatic encephalopathy; B19.20 Unspecified viral hepatitis C without hepatic coma; K74.69 Other cirrhosis of liver; R18.8 Other ascites
CPT/HCPCS: 80053; 85025; 85610

== ENCOUNTER 2024-07-11 10:56 | Day surgery (SDC) | payer BC, MEDICAID, SELFPAY ==
[2024-05-17 15:33] VITALS: BP 150/84; BMI 31.3
[2024-07-11 11:47] VITALS: BP 141/86; PULSE 65; RESP 18; TEMP 36.3; O2SAT 99; BMI 33.3
[2024-07-11 11:51] LABS: Hematocrit 40.9 % (36-47); Mean Corpuscular Hemoglobin 29.2 pg (27-33); Mean Corpuscular Volume 88.5 fl (85-98); Mean Platelet Volume 11.2 fL (7.4-10.4); Platelet Count 92 10^3/cmm (157-399); Red Blood Count 4.62 10^6/uL (3.85-5.65); Red Cell Distribution Width 13.6 % (12.1-15.1); White Blood Count 4.12 10^3/uL (3.29-11.43)
[2024-07-11 11:58] LABS: INR 1.24 (0.8-1.2)
--- NOTE | 2024-07-11 11:58 | US_ITS ---
WS: [email or web address] ULTRASOUND-GUIDED THERAPEUTIC AND DIAGNOSTIC PARACENTESIS Procedure, risks, and complications have been explained to the patient. Consent is obtained. Utilizing aseptic technique and 1% buffered lidocaine, a small dermatome was made through which a 5 Kittitian Yueh catheter was inserted. Approximately 7000 ml of clear peritoneal fluid was obtained without difficulty. No complications encountered. Specimen collected for analysis. US/US paracentesis abd w [id number] IMPRESSION: Uncomplicated paracentesis yielding 7000 ml of peritoneal fluid.
[2024-07-11 12:09] LABS: Alanine Aminotransferase 15 U/L (0-33); Albumin Level 2.6 g/dL (3.5-5.2); Alkaline Phosphatase 119 U/L (35-105); Anion Gap 11.4 (5-19); Aspartate Amino Transferase 30 U/L (0-32); Blood Urea Nitrogen 16 mg/dL (6-20); Calcium 8.1 mg/dL (8.5-10.5); Carbon Dioxide 28 mmol/L (22-29); Chloride 99 mmol/L (98-107); Creatinine Clr Calc Pharmacy 57.5564; Globulin 3.6 g/dL (1.3-4.6); Glomerular Filtration Rate 46.3 mL/min (90-130); Glucose 108 mg/dL (65-115); Osmolality Calculated 282 mOsm/kg (285-295); Potassium 3.4 mmol/L (3.5-5.1); Sodium 135 mmol/L (136-145); Total Bilirubin 1.1 mg/dL (0.15-1.2); Total Protein 6.2 g/dL (6.6-8.7)
[2024-07-11 12:21] LABS: Total Cells Counted 100 (0-100)
[2024-07-11 12:30] LABS: Absolute Eosinophils 0.5 10^3/cmm (0.0-0.7); Absolute Neutrophil 2.5 10^3/cmm (1.4-6.5); Absolute Segmented Neutrophil 2.5 10/cmm (1.6-7.1); Eosinophils 11 %; Lymphocytes 23 %; Monocytes Absolute 0.1 10^3/cmm (0.1-0.6); Platelet Estimate Decreased (Normal); Segmented Neutrophils 60 %
[2024-07-11 13:14] LABS: Appearance, Peritoneal Fluid Hazy (Clear); Color, Peritoneal Fluid Pale Yellow (Pale Yellow)
[2024-07-11 13:15] LABS: Mononuclear #, Pertinoneal Fl 0.063 10^3/uL; Pathology Referral Yes; Polynuclear # Cells, Perit 0.019 10^3/uL; RBC Pertioneal Fluid 0 10^3/uL; WBC Peritoneal Fluid 82 /uL
[2024-07-11] MEDS: ALBUMIN 400 G IV (13:45)
[2024-07-11 14:07] LABS: Cyto Order Verification No Order
== END 2024-07-11 14:39 | disposition home or self-care (01) ==
LOC: GILAB 10:57
PROVIDERS: Radiology Diagnostic Radiology; PCP Nurse Practitioner Family; Visit Provider Internal Medicine Gastroenterology
PROC: (CPT 49082; principal; 2024-07-11 12:00)
DX: R18.8 Other ascites (principal)
CPT/HCPCS: 36415; 49083; 80053; 80503; 85007; 85027; 85610; 87070; 87075; 87205; 89050; P9046

== ENCOUNTER 2024-07-18 11:43 | Day surgery (SDC) | payer BC, MEDICAID, SELFPAY ==
[2024-05-17 15:33] VITALS: BP 150/84; BMI 31.3
--- NOTE | 2024-07-18 11:44 | US_ITS ---
WS: [email or web address] ULTRASOUND-GUIDED PARACENTESIS CLINICAL INFORMATION: Ascites COMPARISON: None. Procedure Informed consent: The risks, benefits, and alternatives of the procedure were discussed with the patient. Verbal and written consent was obtained. Timeout: A timeout was performed to confirm the correct patient, procedure, and site. Preparation: A suitable skin site was identified. The patient was prepped and draped in usual sterile fashion. Lidocaine 1% was used for local anesthesia. Catheter: 4 Slovenian One-step Yueh catheter. Side: LEFT lower quadrant. Fluid Volume: 5000 ml Color: Clear yellow DISPOSITION: Discarded safely. Complications: None. Patient disposition: Discharged from the department in stable condition. US/US paracentesis abd w [id number] IMPRESSION: Uncomplicated ultrasound-guided paracentesis. Removal of 5000 cc
[2024-07-18 11:53] VITALS: BP 182/95; PULSE 62; RESP 16; TEMP 36.2; O2SAT 100
[2024-07-18 12:15] LABS: Basophils % 1.1 %; Eosinophils # 0.2 10^3/uL (0.0-0.8); Eosinophils % 6.1 %; Hematocrit 40.7 % (36-47); Lymphocytes # 0.6 10^3/uL (0.8-4.8); Lymphocytes % 17.8 %; Mean Corpuscular HGB Conc 32.2 g/dL (30-55); Mean Corpuscular Hemoglobin 28.5 pg (27-33); Mean Corpuscular Volume 88.7 fl (85-98); Mean Platelet Volume 11.3 fL (7.4-10.4); Monocytes # 0.4 10^3/uL (0.2-0.9); Monocytes % 11.9 %; Neutrophils # 2.26 10^3/uL (1.8-7.7); Neutrophils % 62.8 %; Nucleated Red Blood Cells % 0 %; Platelet Count 106 10^3/cmm (157-399); Red Blood Count 4.59 10^6/uL (3.85-5.65); Red Cell Distribution Width 13.6 % (12.1-15.1)
[2024-07-18 12:23] LABS: INR 1.23 (0.8-1.2)
[2024-07-18 12:37] LABS: Alanine Aminotransferase 15 U/L (0-33); Albumin Level 2.9 g/dL (3.5-5.2); Alkaline Phosphatase 106 U/L (35-105); Anion Gap 11.5 (5-19); Aspartate Amino Transferase 30 U/L (0-32); Blood Urea Nitrogen 13 mg/dL (6-20); Carbon Dioxide 27 mmol/L (22-29); Chloride 103 mmol/L (98-107); Creatinine Clr Calc Pharmacy 57.2601; Globulin 3.2 g/dL (1.3-4.6); Glomerular Filtration Rate 46.3 mL/min (90-130); Glucose 131 mg/dL (65-115); Osmolality Calculated 288 mOsm/kg (285-295); Potassium 3.5 mmol/L (3.5-5.1); Sodium 138 mmol/L (136-145); Total Bilirubin 1.6 mg/dL (0.15-1.2); Total Protein 6.1 g/dL (6.6-8.7)
[2024-07-18 13:37] LABS: Cyto Order Verification No Order
[2024-07-18 13:42] LABS: Color, Body Fluid YELLOW
[2024-07-18 13:43] LABS: Apprearance, Body Fluid CLOUDY; PATH Referral YES
[2024-07-18 13:44] LABS: Body Fluid Polynuclear #Cells 0.024; Body Fluid WBC 117 /uL; Monocytes # Body Fluid 0.093
[2024-07-18 13:48] LABS: Fluid Laterality PEPERITONEAL FLUID
== END 2024-07-18 13:45 | disposition home or self-care (01) ==
LOC: GILAB 11:44
PROVIDERS: Radiology Neuroradiology; PCP Nurse Practitioner Family; Visit Provider Internal Medicine Gastroenterology
PROC: (CPT 49082; principal; 2024-07-18 12:00)
DX: R18.8 Other ascites (principal); B19.20 Unspecified viral hepatitis C without hepatic coma
CPT/HCPCS: 36415; 49083; 80053; 80503; 85025; 85610; 87070; 87075; 87205; 89050

== ENCOUNTER → 2024-07-25 11:21 | Day surgery (SDC) | payer BC, MEDICAID, SELFPAY ==
[2024-05-17 15:33] VITALS: BP 150/84; BMI 31.3
--- NOTE | 2024-07-25 11:31 | US_ITS ---
WS: [email or web address] ULTRASOUND-GUIDED THERAPEUTIC AND DIAGNOSTIC PARACENTESIS Procedure, risks, and complications have been explained to the patient. Consent is obtained. Utilizing aseptic technique and 1% buffered lidocaine, a small dermatome was made through which a 5 Scottish Yueh catheter was inserted. Approximately 5000 ml of clear peritoneal fluid was obtained without difficulty. No complications encountered. Specimen collected for analysis. US/US paracentesis abd w [id number] IMPRESSION: Uncomplicated paracentesis yielding 5000 ml of peritoneal fluid.
[2024-07-25 11:35] VITALS: BP 134/86; PULSE 61; RESP 17; TEMP 36.6; O2SAT 97
[2024-07-25 11:46] VITALS: BMI 32.9
[2024-07-25 13:07] LABS: Basophils # 0.1 10^3/uL (0.0-0.1); Basophils % 1.2 %; Eosinophils # 0.2 10^3/uL (0.0-0.8); Eosinophils % 4.2 %; Hematocrit 38.6 % (36-47); Lymphocytes # 0.9 10^3/uL (0.8-4.8); Lymphocytes % 20.2 %; Mean Corpuscular HGB Conc 33.2 g/dL (30-55); Mean Corpuscular Hemoglobin 28.4 pg (27-33); Mean Corpuscular Volume 85.8 fl (85-98); Mean Platelet Volume 11.2 fL (7.4-10.4); Monocytes # 0.6 10^3/uL (0.2-0.9); Neutrophils # 2.61 10^3/uL (1.8-7.7); Neutrophils % 60.7 %; Nucleated Red Blood Cells % 0 %; Platelet Count 85 10^3/cmm (157-399); Red Cell Distribution Width 13.4 % (12.1-15.1)
[2024-07-25 13:15] LABS: Cyto Order Verification No Order
[2024-07-25 13:16] LABS: Mononuclear #, Pertinoneal Fl 0.088 10^3/uL; Polynuclear # Cells, Perit 0.034 10^3/uL; RBC Pertioneal Fluid 0 10^3/uL; WBC Peritoneal Fluid 122 /uL
[2024-07-25 13:28] LABS: Alanine Aminotransferase 12 U/L (0-33); Albumin Level 2.6 g/dL (3.5-5.2); Alkaline Phosphatase 114 U/L (35-105); Aspartate Amino Transferase 27 U/L (0-32); Blood Urea Nitrogen 17 mg/dL (6-20); Calcium 8.1 mg/dL (8.5-10.5); Carbon Dioxide 26 mmol/L (22-29); Chloride 102 mmol/L (98-107); Creatinine Clr Calc Pharmacy 62.4656; Globulin 3.2 g/dL (1.3-4.6); Glomerular Filtration Rate 51.2 mL/min (90-130); Glucose 120 mg/dL (65-115); Osmolality Calculated 287 mOsm/kg (285-295); Sodium 137 mmol/L (136-145); Total Bilirubin 1.2 mg/dL (0.15-1.2); Total Protein 5.8 g/dL (6.6-8.7)
[2024-07-25 13:32] LABS: INR 1.33 (0.8-1.2)
[2024-07-25 13:34] LABS: Anion Gap 13.2 (5-19); Potassium 4.2 mmol/L (3.5-5.1)
[2024-07-25 13:39] LABS: Color, Peritoneal Fluid Pale Yellow (Pale Yellow)
[2024-07-25 13:40] LABS: Appearance, Peritoneal Fluid Hazy (Clear)
--- NOTE | 2024-07-25 13:44 | PC.NURSE ---
Fluid stopped draining, RN observed to see if fluid would start draining again-then blood was observed in line. Suction turned off and tubing clamped. Notified ultrasound & Dr. Horan. Pt was scanned again by ultrasound. RN was cleared to pull catheter out.
[2024-07-25 15:27] LABS: Pathology Referral Yes
== END ==
PROVIDERS: Radiology Diagnostic Radiology; PCP Nurse Practitioner Family; Visit Provider Internal Medicine Gastroenterology
PROC: (CPT 49082; principal; 2024-07-25 12:00)
DX: R18.8 Other ascites (principal); B19.20 Unspecified viral hepatitis C without hepatic coma; K74.69 Other cirrhosis of liver
CPT/HCPCS: 36415; 49083; 80053; 80503; 85025; 85610; 87070; 87075; 87205; 89050

== ENCOUNTER → 2024-08-01 11:05 | Day surgery (SDC) | payer BC, MEDICAID, SELFPAY ==
[2024-05-17 15:33] VITALS: BP 150/84; BMI 31.3
[2024-08-01 11:30] VITALS: BP 97/64; PULSE 54; RESP 16; TEMP 36.8; O2SAT 96
[2024-08-01 11:33] VITALS: BMI 31.8
--- NOTE | 2024-08-01 11:45 | US_ITS ---
WS: [email or web address] INDICATION: Cirrhosis ascites TECHNIQUE: Limited abdominal ultrasound FINDINGS: Insufficient fluid for paracentesis US/US abdomen lmt fluid [id number] IMPRESSION: Insufficient fluid for paracentesis at this time
[2024-08-01 11:58] VITALS: BP 128/66
[2024-08-01 12:22] LABS: Basophils # 0.1 10^3/uL (0.0-0.1); Basophils % 1.2 %; Eosinophils # 0.2 10^3/uL (0.0-0.8); Hematocrit 39.3 % (36-47); Lymphocytes # 0.8 10^3/uL (0.8-4.8); Lymphocytes % 18.5 %; Mean Corpuscular HGB Conc 32.6 g/dL (30-55); Monocytes # 0.5 10^3/uL (0.2-0.9); Monocytes % 12.4 %; Neutrophils # 2.67 10^3/uL (1.8-7.7); Neutrophils % 63.4 %; Nucleated Red Blood Cells % 0 %; Platelet Count 111 10^3/cmm (157-399); Red Blood Count 4.57 10^6/uL (3.85-5.65); Red Cell Distribution Width 13.3 % (12.1-15.1); White Blood Count 4.21 10^3/uL (3.29-11.43)
[2024-08-01 12:58] LABS: Alanine Aminotransferase 15 U/L (0-33); Albumin Level 2.6 g/dL (3.5-5.2); Alkaline Phosphatase 106 U/L (35-105); Aspartate Amino Transferase 29 U/L (0-32); Blood Urea Nitrogen 15 mg/dL (6-20); Calcium 8.5 mg/dL (8.5-10.5); Carbon Dioxide 27 mmol/L (22-29); Chloride 103 mmol/L (98-107); Creatinine Clr Calc Pharmacy 56.2231; Globulin 3.1 g/dL (1.3-4.6); Glomerular Filtration Rate 46.3 mL/min (90-130); Glucose 89 mg/dL (65-115); Osmolality Calculated 284 mOsm/kg (285-295); Sodium 137 mmol/L (136-145); Total Bilirubin 1.4 mg/dL (0.15-1.2); Total Protein 5.7 g/dL (6.6-8.7)
[2024-08-01 13:07] LABS: Anion Gap 11.2 (5-19); Potassium 4.2 mmol/L (3.5-5.1)
== END ==
LOC: GILAB 11:05
PROVIDERS: Internal Medicine Gastroenterology; Radiology Neuroradiology; PCP Nurse Practitioner Family
DX: R18.8 Other ascites (principal); B19.20 Unspecified viral hepatitis C without hepatic coma; K74.60 Unspecified cirrhosis of liver
CPT/HCPCS: 36415; 49083; 76705; 80053; 85025; 87522

== ENCOUNTER 2024-08-04 17:19 | Emergency (ER) | payer BC, MEDICAID, SELFPAY ==
[2024-05-17 15:33] VITALS: BP 150/84; BMI 31.3
[2024-08-04 17:22] VITALS: BP 135/83; PULSE 60; RESP 14; TEMP 36.7; O2SAT 98
--- NOTE | 2024-08-04 18:25 | ECG_ITS ---
[facility] Test Date: 2024-08-04 Pat Name: Sandy Ernandez Department: Room: Gender: Female Cash Specialist: : 1965 Requested By: Dionne Gutiérrez Order Number: [id number] Dano MD: Felix King M.D. Measurements Intervals [place] Rate: 57 P: 34 RI: 152 QRS: -7 QRSD: 77 T: 31 QT: 412 QTc: 404 Interpretive Statements SINUS BRADYCARDIA MODERATE VOLTAGE CRITERIA FOR LVH, CONSIDER NORMAL VARIANT [MEETS CRITERIA IN ONE OF: R(aVL), S(V1), R(V5), R(V5/V6)+S(V1)] POSSIBLE ANTERIOR MYOCARDIAL INFARCTION , PROBABLY OLD [30 ms Q WAVE IN V3/V4, OR R < 0.2 mV IN V4] Compared to ECG 11/11/2023 18:01:19 Myocardial infarct finding now present Sinus rhythm no longer present Electronically Signed On 08-07-2024 09:22:06 CDT by Felix King M.D. [email or web address]
[2024-08-04 18:30] LABS: Basophils # 0.1 10^3/uL (0.0-0.1); Basophils % 1.2 %; Eosinophils # 0.2 10^3/uL (0.0-0.8); Eosinophils % 3.2 %; Hematocrit 41.5 % (36-47); Lymphocytes # 0.7 10^3/uL (0.8-4.8); Lymphocytes % 13.9 %; Mean Corpuscular HGB Conc 31.8 g/dL (30-55); Mean Corpuscular Hemoglobin 28.1 pg (27-33); Mean Corpuscular Volume 88.3 fl (85-98); Mean Platelet Volume 10.6 fL (7.4-10.4); Monocytes # 0.5 10^3/uL (0.2-0.9); Monocytes % 10.3 %; Neutrophils # 3.58 10^3/uL (1.8-7.7); Nucleated Red Blood Cells % 0 %; Platelet Count 77 10^3/cmm (157-399); Red Cell Distribution Width 13.2 % (12.1-15.1); White Blood Count 5.04 10^3/uL (3.29-11.43)
--- NOTE | 2024-08-04 18:40 | W.ED.RECABL ---
HPI - Recheck/Abnormal Lab/Rx General: Chief Complaint: Recheck/Abnormal Lab/Rx Stated Complaint: nausea Time Seen by Provider: 08/04/24 18:32 Source: patient Mode of arrival: ambulatory Limitations: no limitations History of Present Illness: 59yo female presents with right-sided flank/back pain and nausea/vomiting. Patient reports that her pain has been ongoing for approximately 1 week she has been nauseated for the past several days. States that she started vomiting today. Reports that she did have 2 episodes of vomiting on her way to the emergency department today. Patient reports that her doctor in [place] did tell her that some of her labs were off (kidney and ammonia and) and ordered repeat labs for Wednesday. Patient states she does have a history of kidney stones, but is not certain if this feels the same. Patient denies fever, cough, congestion, any other concerns at this time. Related Data Home Medications ?Medication ?Instructions ?Recorded ?Confirmed rifaximin 550 mg tablet (Xifaxan) 550 mg PO BID 12/10/23 08/01/24 sofosbuvir 400 mg-velpatasvir 100 1 tab PO DAILY 12/28/23 08/01/24 mg tablet (Epclusa) furosemide 40 mg tablet 60 mg PO DAILY 03/06/24 08/01/24 albuterol sulfate 90 mcg/actuation 2 puff inhalation Q6H PRN 05/15/24 08/01/24 aerosol inhaler (Ventolin HFA) Shortness Of Breath lactulose 10 gram oral packet 20 g PO BID 06/13/24 08/01/24 nadolol 20 mg tablet 20 mg PO DAILY 06/13/24 08/01/24 spironolactone 50 mg tablet 50 mg PO TID 06/13/24 08/01/24 Previous Rx's ?Medication ?Instructions ?Recorded premier protein shakes #90 ea 01/19/24 tamsulosin 0.4 mg capsule (Flomax) 0.4 mg PO DAILY #30 caps 03/08/24 hydroxyzine HCl 50 mg tablet 200 mg (4 x 50 mg) PO .HS PRN 07/07/24 insomnia #120 tabs paroxetine HCl 40 mg tablet 40 mg PO DAILY #30 tabs 07/07/24 cefdinir 300 mg capsule 300 mg PO BID #7 caps 05/02/25 lactulose 20 gram oral packet 20 g PO TID 3 days #15 ea 08/04/24 metoclopramide HCl 10 mg tablet 10 mg PO Q6H PRN nausea and 08/04/24 vomiting #20 tabs Allergies Allergy/AdvReac Type Severity Reaction Status Date / Time tramadol Allergy ADR-Nausea Verified 08/04/24 17:29 NSAIDS (Non-Steroidal AdvReac Unknown Verified 08/04/24 17:29 Anti-Inflamma Review of Systems Const: Denies: fever(s), chills or body aches Card: Denies: chest pain Resp: Denies: dyspnea GI: Reports: nausea and vomiting : Reports: flank pain (right) Musc: Reports: back pain (right mid-low back) PFSH ED PFSH: Medical History (Updated 08/04/24 @ 20:36 by MARCELINO Reynolds) COVID-19 Breast lump Screening breast examination Screening for cervical cancer Calculus of kidney Abnormal CT of the abdomen Screening for osteoporosis Elevated TSH Psychiatric care Cellulitis Cellulitis of leg, right COVID-19 Hepatitis C Family History Mother Hypertension Family/Other Hypertension Denies family history of Diabetes CAD (coronary artery disease) Cancer Social History (Updated 05/15/24 @ 11:32 by Kelsea Lama RN) Smoking and tobacco/nicotine status: never used tobacco/nicotine Second hand smoke exposure: Yes Alcohol intake: former Former alcohol use details: 25 years ago Substance/Drug Use: former Former substance use details: 5-6 years ago Adopted: No Caregiver/support person: No Lives independently: Yes Household members: friend(s) Housing: House Marital status: Marital status details: while in [place], never met him outside of [place] Number of children: 2 Number of grandchildren: 5 Highest education level completed: Some College, No Degree service: No Current occupational status: disabled Current occupation: working on getting disability Current occupational exposures/hazards: No Pets and animals: Yes Pets & animals: dog(s) Leisure activites: other Leisure activities details: watch movies and play with grand kids Sexually active: No Do you think of yourself as: Straight/Heterosexual Current gender identity: Female Lauren/Quaker: Holiness Special lauren needs: No Agree to transfusion: Yes Female Reproductive History: Para: 2 Physical Exam Const: COMMON NORMALS: no acute distress, patient oriented x3, healthy appearing and alert GENERAL APPEARANCE: cooperative ORIENTATION/CONSCIOUSNESS: Yes awake OTHER: Patient is sitting upright on stretcher no acute distress. She is able to give history with no difficulty. She is interactive with exam appropriately. No family is at bedside at time of exam HENMT: COMMON NORMALS: normocephalic HEAD & SCALP: normocephalic Neck/C-Spine: COMMON NORMALS: full ROM Chest: CHEST: Yes Symmetrical chest wall rise Resp: COMMON NORMALS: normal respiratory effort and clear to auscultation bilaterally EFFORT & INSPECTION: Yes able to speak in complete sentences AUSCULTATION: clear to auscultation bilaterally Cardio: COMMON NORMALS: regular rate RATE: regular rate GI: PALPATION: Yes Ascites present : BLADDER/KIDNEY EXAM: Yes CVA tenderness on the right Back/Pelvis: GENERAL BACK: Yes CVA tenderness BACK IMAGE (FEMALE):  1. X- tenderness to palpation Neuro: COMMON NORMALS: patient oriented x3 SENSORIUM/ORIENTATION: Yes alert Psych: COMMON NORMALS: cooperative Course Vital Signs: Vital signs: Vital Signs Temperature 98.1 F 08/04/24 17:22 Pulse Rate 57 L 08/04/24 20:12 Respiratory Rate 14 08/04/24 17:22 Blood Pressure 134/48 08/04/24 20:12 Pulse Oximetry 96 08/04/24 20:12 Oxygen Delivery Me thod Room Air 08/04/24 20:12 MDM - Recheck/Abnormal Lab/Rx Medical Decision Making 59yo female presents with right-sided flank/back pain and nausea/vomiting. Patient reports that her pain has been ongoing for approximately 1 week she has been nauseated for the past several days. States that she started vomiting today. Reports that she did have 2 episodes of vomiting on her way to the emergency department today. Patient reports that her doctor in [place] did tell her that some of her labs were off (kidney and ammonia and) and ordered repeat labs for Wednesday. Patient states she does have a history of kidney stones, but is not certain if this feels the same. Patient denies fever, cough, congestion, any other concerns at this time. Patient is nontoxic in appearance. Vital signs are stable. No leukocytosis, white blood cell count is 5.04. No indication of anemia, hemoglobin is 13.2. No electrolyte abnormalities noted. Patient's creatinine is noted to be 1.2, but this is stable over the past 4 lab draws. Ammonia is elevated at 91, Patient's previous ammonia was 62 on 11/26/2023 with a high of 85 on 11/11/2023. Patient does not have symptoms of encephalopathy at this time. Lipase is mildly elevated at 62. UA with 3+ blood, nitrite positive, 2+ leukocyte esterase, too numerous to count red blood cells and too numerous to count white blood cells. 1+ bacteria noted. Patient is stable for discharge. Will proceed with antibiotics for the urinary tract infection, ceftriaxone provided in the emergency department and cefdinir prescribed. Patient has not been taking her lactulose, discussed with patient the importance of lactulose for her ammonia level. She did receive lactulose while in the emergency department and prescription sent for increased dose over the next 3 days, then return to her home dosing. Metoclopramide has been sent to the pharmacy for nausea/vomiting. Encourage patient to follow-up with her doctor, call Wednesday with an update of symptoms and to discuss a recheck. Return precautions provided. Patient states understanding and has no further questions or concerns at this time. Medical Records I reviewed the patient's medical records. Lab Data I reviewed the patient's lab results. 08/04/24 18:23 08/04/24 18:23 Laboratory Results WBC 5.04 10^3/uL (3.29-11.43) 08/04/24 18: RBC 4.70 10^6/uL (3.85-5.65) 08/04/24 18: Hgb 13.20 g/dL (11.27-16.99) 08/04/24 18: Hct 41.5 % (36-47) 08/04/24 18: MCV 88.3 fl (85-98) 08/04/24 18: MCH 28.1 pg (27-33) 08/04/24 18: MCHC 31.8 g/dL (30-55) 08/04/24 18:23 RDW 13.2 % (12.1-15.1) 08/04/24 18: Plt Count 77 10^3/cmm (157-399) L 08/04/24 18: MPV 10.6 fL (7.4-10.4) H 08/04/24 18:23 Neut % (Auto) 71.0 % 08/04/24 18:23 Lymph % (Auto) 13.9 % 08/04/24 18:23 [place] % (Auto) 10.3 % 08/04/24 18:23 Eos % (Auto) 3.2 % 08/04/24 18:23 Baso % (Auto) 1.2 % 08/04/24 18:23 Neut # (Auto) 3.58 10^3/uL (1.8-7.7) 08/04/24 18:23 Lymph # (Auto) 0.7 10^3/uL (0.8-4.8) L 08/04/24 18:23 [place] # (Auto) 0.5 10^3/uL (0.2-0.9) 08/04/24 18:23 Eos # (Auto) 0.2 10^3/uL (0.0-0.8) 08/04/24 18: Baso # (Auto) 0.1 10^3/uL (0.0-0.1) 08/04/24 18:23 Nucleated RBC % (auto) 0 % 08/04/24 18: Nucleated RBCs # 0.0 /100WBC 08/04/24 18:23 Sodium 136 mmol/L (136-145) 08/04/24 18:23 Potassium 4.5 mmol/L (3.5-5.1) 08/04/24 18:23 Chloride 102 mmol/L (98-107) 08/04/24 18:23 Carbon Dioxide 24 mmol/L (22-29) 08/04/24 18:23 Anion Gap 14.5 (5-19) 08/04/24 18:23 BUN 16 mg/dL (6-20) 08/04/24 18:23 Creatinine 1.2 mg/dL (0.5-0.9) H 08/04/24 18:23 GFR Calculation 46.3 mL/min (90-130) L 08/04/24 18:23 Glucose 119 mg/dL (65-115) H 08/04/24 18:23 Calculated Osmolality 284 mOsm/kg (285-295) L 08/04/24 18:23 Calcium 8.5 mg/dL (8.5-10.5) 08/04/24 18:23 Total Bilirubin 1.2 mg/dL (0.15-1.2) 08/04/24 18:23 AST 30 U/L (0-32) 08/04/24 18:23 ALT 16 U/L (0-33) 08/04/24 18:23 Alkaline Phosphatase 132 U/L (35-105) H 08/04/24 18:23 Ammonia 91 umol/L (11-51) H 08/04/24 18:23 Total Protein 6.3 g/dL (6.6-8.7) L 08/04/24 18:23 Albumin 2.8 g/dL (3.5-5.2) L 08/04/24 18:23 Globulin 3.5 g/dL (1.3-4.6) 08/04/24 18:23 Lipase 62 U/L (13-60) H 08/04/24 18:23 Urine Color Dark yellow (Yellow) A 08/04/24 19: Urine Appearance Turbid (CLEAR) A 08/04/24 19: Urine pH 6.5 (5-7) 08/04/24 19:32 Ur Specific [place] 1.015 (1.005-1.030) 08/04/24 19: Urine Protein 3+ (Negative) H 08/04/24 19: Urine Glucose (UA) Norm (Normal) 08/04/24 19: Urine Ketones 1+ (Negative) H 08/04/24 19:32 Urine Blood 3+ (Negative) H 08/04/24 19: Urine Nitrate Positive (Negative) A 08/04/24 19: Urine Bilirubin 2+ (Negative) H 08/04/24 19:32 Urine Urobilinogen 4+ mg/dL (Negative) H 08/04/24 19:32 Ur Leukocyte Esterase 2+ (Negative) H 08/04/24 19:32 Urine RBC Too numerous to cnt /hpf (0-2) H 08/04/24 19:32 Urine WBC Too numerous to cnt /hpf (0-5) H 08/04/24 19:32 Ur Squamous Epith Cells 6-10 /hpf (0-5) 08/04/24 19: Amorphous Sediment Not Reportable 08/04/24 19: Urine Bacteria 1+ /hpf (NONE) H 08/04/24 19:32 No radiology studies performed this visit Discharge Plan Discharge Patient Disposition: Home Clinical Impression: Acute cystitis with hematuria, Serum ammonia increased Condition: Stable Prescriptions: New cefdinir 300 mg capsule 300 mg PO BID Qty: 7 0RF lactulose 20 gram packet 20 g PO TID 3 Days Qty: 15 0RF metoclopramide HCl 10 mg tablet 10 mg PO Q6H PRN (Reason: nausea and vomiting) Qty: 20 0RF No Action (DME) premier protein shakes See Rx Instructions .Route .MEDSUPPLY Qty: 90 1RF Rx Instructions: 1 shake po daily tamsulosin [Flomax] 0.4 mg capsule 0.4 mg PO DAILY Qty: 30 0RF albuterol sulfate [Ventolin HFA] 90 mcg/actuation HFA aerosol inhaler 2 puff inhalation Q6H PRN (Reason: Shortness Of Breath) hydroxyzine HCl 50 mg tablet 200 mg PO .HS PRN (Reason: insomnia) Qty: 120 2RF paroxetine HCl 40 mg tablet 40 mg PO DAILY Qty: 30 2RF lactulose 10 gram packet 20 g PO BID spironolactone 50 mg tablet 50 mg PO TID sofosbuvir-velpatasvir [Epclusa] 400-100 mg tablet 1 tab PO DAILY Xifaxan 550 mg Tablet 550 mg PO BID furosemide 40 mg tablet 60 mg PO DAILY nadolol [Corgard] 20 mg Tablet 20 mg PO DAILY Discharge Orders: Discharge ED (Routine); Ordered 08/04/24 Ordered By: Luciano Leach Referrals: Estrella Gerard FNP [Primary Care Provider, Family Practice] Discharge Diet: Usual diet Discharge Activity: Increase activity as tolerated Patient Instructions: Urinary Tract Infection in Women (ED), Pain Management Activity Restrictions/Additional Instructions: Your ammonia level is elevated. You have been prescribed a higher dose of lactulose to take 3 times a day for the next 3 days, then you may return back to your normal lactulose dosage. It is very important to take this medication to keep your ammonia level in the normal range You did receive antibiotics in the emergency department for the urinary tract infection. Cefdinir has been sent to the pharmacy to continue antibiotic therapy Metoclopramide has been sent to your pharmacy as well for nausea/vomiting Please continue to monitor your symptoms closely. Follow-up with primary care, call Wednesday with an update of symptoms and to discuss a recheck Return to the emergency department if any rapid worsening symptoms and as needed Print Language: Peruvian Coding Level of Care Code ED Director Of Land for [facility]
[2024-08-04 18:48] LABS: Slide Review Slide Review Perform
[2024-08-04 18:52] LABS: Alanine Aminotransferase 16 U/L (0-33); Albumin Level 2.8 g/dL (3.5-5.2); Alkaline Phosphatase 132 U/L (35-105); Anion Gap 14.5 (5-19); Aspartate Amino Transferase 30 U/L (0-32); Blood Urea Nitrogen 16 mg/dL (6-20); Calcium 8.5 mg/dL (8.5-10.5); Carbon Dioxide 24 mmol/L (22-29); Chloride 102 mmol/L (98-107); Creatinine Clr Calc Pharmacy 56.2231; Globulin 3.5 g/dL (1.3-4.6); Glomerular Filtration Rate 46.3 mL/min (90-130); Glucose 119 mg/dL (65-115); Lipase 62 U/L (13-60); Osmolality Calculated 284 mOsm/kg (285-295); Potassium 4.5 mmol/L (3.5-5.1); Sodium 136 mmol/L (136-145); Total Bilirubin 1.2 mg/dL (0.15-1.2); Total Protein 6.3 g/dL (6.6-8.7)
[2024-08-04 18:54] LABS: Ammonia 91 umol/L (11-51)
[2024-08-04] MEDS: metoclopramide 10 mg Tablet PO (19:34)
[2024-08-04 20:12] VITALS: BP 134/48; PULSE 57; O2SAT 96
[2024-08-04 20:18] LABS: Protein Urine 3+ (Negative); Specific Gravity, Urine 1.015 (1.005-1.030); Urine Appearance Turbid (CLEAR); Urine Color Dark Yellow (Yellow); pH Urine 6.5 (5-7)
[2024-08-04 20:19] LABS: Add Urine Microscopic? YES; Bilirubin Urine 2+ (Negative); Blood Urine 3+ (Negative); Glucose Urine UA Norm (Normal); Ketones Urine 1+ (Negative); Leukocyte Esterase Urine 2+ (Negative); Nitrate Urine Positive (Negative); RBC Urine TOO NUMEROUS TO CNT /hpf (0-2); UA Manual Slide Review YES; UA Slide Review UA Slide Review Perf; Urobilinogen Urine 4+ mg/dL (Negative); WBC Urine TOO NUMEROUS TO CNT /hpf (0-5)
[2024-08-04 20:20] LABS: Add Urine Culture? Yes; Bacteria Urine 1+ /hpf
[2024-08-04] MEDS: lactulose oral liq 20 gm/30 mL UDC 30 GM PO (20:44)
[2024-08-04] MEDS: cefTRIAXone 1,000 MG in water for injection-sterile 2.1 ML 2.1 MG IM (20:44)
== END 2024-08-04 20:54 | disposition home or self-care (01) ==
PROVIDERS: Emergency Medicine; Emergency Provider Nurse Practitioner; PCP Nurse Practitioner Family
DX: N30.01 Acute cystitis with hematuria (principal); E72.20 Disorder of urea cycle metabolism, unspecified
CPT/HCPCS: 36415; 80053; 81001; 82140; 83690; 85025; 87077; 87086; 87186; 93005; 96372; 99284; J0696; J8597; J9999

== ENCOUNTER 2024-08-07 10:32 | Outpatient (CLI) | payer BC, MEDICAID, SELFPAY ==
[2024-05-17 15:33] VITALS: BP 150/84; BMI 31.3
[2024-08-07 13:32] LABS: INR 1.22 (0.8-1.2)
[2024-08-07 13:37] LABS: Anion Gap 8.8 (5-19); Blood Urea Nitrogen 14 mg/dL (6-20); Calcium 7.9 mg/dL (8.5-10.5); Carbon Dioxide 28 mmol/L (22-29); Chloride 101 mmol/L (98-107); Glomerular Filtration Rate 51.2 mL/min (90-130); Glucose 121 mg/dL (65-115); Osmolality Calculated 280 mOsm/kg (285-295); Potassium 3.8 mmol/L (3.5-5.1); Sodium 134 mmol/L (136-145)
== END 2024-08-07 10:33 | disposition home or self-care (01) ==
LOC: LAB 10:37
PROVIDERS: PCP Nurse Practitioner Family; Visit Provider Internal Medicine Gastroenterology
DX: B19.20 Unspecified viral hepatitis C without hepatic coma (principal); K74.69 Other cirrhosis of liver
CPT/HCPCS: 80048; 85610

== ENCOUNTER 2024-08-08 11:30 | Day surgery (SDC) | payer BC, MEDICAID, SELFPAY ==
[2024-05-17 15:33] VITALS: BP 150/84; BMI 31.3
--- NOTE | 2024-08-08 11:35 | US_ITS ---
WS: [id number] ULTRASOUND-GUIDED THERAPEUTIC AND DIAGNOSTIC PARACENTESIS Procedure, risks, and complications have been explained to the patient. Consent is obtained. Utilizing aseptic technique and 1% buffered lidocaine, a small dermatome was made through which a 5 [place] Yueh catheter was inserted. Approximately 5000 ml of clear peritoneal fluid was obtained without difficulty. No complications encountered. US/US paracentesis abd w [id number] IMPRESSION: Uncomplicated paracentesis yielding 5000 ml of peritoneal fluid.
[2024-08-08 11:49] VITALS: BP 109/56; PULSE 66; RESP 18; TEMP 36.8; O2SAT 96
[2024-08-08 12:36] LABS: Apprearance, Body Fluid CLOUDY; Color, Body Fluid YELLOW; Cyto Order Verification No Order; Fluid Laterality PARA FLUID; PATH Referral YES
[2024-08-08 12:40] LABS: Body Fluid Polynuclear #Cells 0.026; Body Fluid WBC 115 /uL; Monocytes # Body Fluid 0.089; RBC, Body Fluid 0 10^3/uL
== END 2024-08-08 13:00 | disposition home or self-care (01) ==
LOC: GILAB 11:30
PROVIDERS: Internal Medicine Gastroenterology; Radiology Diagnostic Radiology; PCP Nurse Practitioner Family
PROC: (CPT 49082; principal; 2024-08-08 12:00)
DX: R18.8 Other ascites (principal)
CPT/HCPCS: 49083; 80503; 87070; 87075; 87205; 89050

== ENCOUNTER → 2024-08-11 09:52 | Outpatient (BNVA) | payer OTHER, SELFPAY ==
[2024-05-17 15:33] VITALS: BP 150/84; BMI 31.3
== END ==
PROVIDERS: PCP Nurse Practitioner Family; Visit Provider Nurse Practitioner Family
DX: N39.0 Urinary tract infection, site not specified (principal)
CPT/HCPCS: 81000; 87086

== ENCOUNTER → 2024-08-15 11:28 | Day surgery (SDC) | payer BC, MEDICAID, SELFPAY ==
[2024-05-17 15:33] VITALS: BP 150/84; BMI 31.3
[2024-08-15 11:35] VITALS: BP 149/82; PULSE 73; RESP 19; TEMP 36.7; O2SAT 96; BMI 32.9
--- NOTE | 2024-08-15 11:38 | US_ITS ---
WS: [id number] ULTRASOUND-GUIDED PARACENTESIS CLINICAL INFORMATION: DECOMPENSATED HCV CIRRHOSIS COMPARISON: None. Procedure Informed consent: The risks, benefits, and alternatives of the procedure were discussed with the patient. Verbal and written consent was obtained. Timeout: A timeout was performed to confirm the correct patient, procedure, and site. Preparation: A suitable skin site was identified. The patient was prepped and draped in usual sterile fashion. Lidocaine 1% was used for local anesthesia. Catheter: 4 [place] One-step Yueh catheter. Side: LEFT lower quadrant. Fluid Volume: 900 ml Color: Clear yellow DISPOSITION: Discarded safely. Complications: None. Patient disposition: Discharged from the department in stable condition. US/US paracentesis abd w [id number] IMPRESSION: Uncomplicated ultrasound-guided paracentesis. Removal of 900 cc
[2024-08-15 13:14] LABS: Basophils % 0.1 %; Eosinophils % 0.1 %; Hematocrit 36.1 % (36-47); Lymphocytes # 0.5 10^3/uL (0.8-4.8); Lymphocytes % 7.2 %; Mean Corpuscular HGB Conc 32.7 g/dL (30-55); Mean Corpuscular Volume 85.5 fl (85-98); Mean Platelet Volume 12.2 fL (7.4-10.4); Monocytes # 0.6 10^3/uL (0.2-0.9); Neutrophils # 6.33 10^3/uL (1.8-7.7); Neutrophils % 84.3 %; Nucleated Red Blood Cells % 0 %; Platelet Count 96 10^3/cmm (157-399); Red Blood Count 4.22 10^6/uL (3.85-5.65); Red Cell Distribution Width 13.2 % (12.1-15.1); White Blood Count 7.51 10^3/uL (3.29-11.43)
[2024-08-15 13:18] LABS: Cyto Order Verification No Order
[2024-08-15 13:21] LABS: Mononuclear #, Pertinoneal Fl 0.079 10^3/uL; Polynuclear # Cells, Perit 0.028 10^3/uL; RBC Pertioneal Fluid 0 10^3/uL; WBC Peritoneal Fluid 107 /uL
[2024-08-15 13:25] LABS: Appearance, Peritoneal Fluid Cloudy (Clear); Color, Peritoneal Fluid Pale Yellow (Pale Yellow); Pathology Referral Yes
[2024-08-15 13:34] LABS: Alanine Aminotransferase 16 U/L (0-33); Albumin Level 2.6 g/dL (3.5-5.2); Alkaline Phosphatase 155 U/L (35-105); Anion Gap 13.6 (5-19); Aspartate Amino Transferase 31 U/L (0-32); Blood Urea Nitrogen 19 mg/dL (6-20); Calcium 8.2 mg/dL (8.5-10.5); Carbon Dioxide 22 mmol/L (22-29); Chloride 102 mmol/L (98-107); Creatinine Clr Calc Pharmacy 57.2601; Globulin 3.2 g/dL (1.3-4.6); Glomerular Filtration Rate 46.3 mL/min (90-130); Glucose 179 mg/dL (65-115); Osmolality Calculated 285 mOsm/kg (285-295); Potassium 3.6 mmol/L (3.5-5.1); Sodium 134 mmol/L (136-145); Total Bilirubin 0.9 mg/dL (0.15-1.2); Total Protein 5.8 g/dL (6.6-8.7)
[2024-08-15 13:41] LABS: INR 1.26 (0.8-1.2)
== END ==
LOC: GILAB 11:28
PROVIDERS: Radiology Neuroradiology; PCP Nurse Practitioner Family; Visit Provider Internal Medicine Gastroenterology
PROC: (CPT 49082; principal; 2024-08-15 12:00)
DX: K74.69 Other cirrhosis of liver (principal); B19.20 Unspecified viral hepatitis C without hepatic coma; R18.8 Other ascites; K76.82 Hepatic encephalopathy
CPT/HCPCS: 36415; 49083; 80053; 80503; 85025; 85610; 87075; 89050

== ENCOUNTER 2024-08-15 17:06 | Inpatient (IN) | payer BC, MEDICAID, SELFPAY ==
[2024-05-17 15:33] VITALS: BP 150/84; BMI 31.3
[2024-08-15 17:09] VITALS: PULSE 76; RESP 16; TEMP 36.8; O2SAT 96; BMI 32.1
--- NOTE | 2024-08-15 17:09 | XRR_ITS ---
PROCEDURE INFORMATION: Exam: XR Chest Exam date and time: 08/15/2024 5:19 PM Age: 59 years old Clinical indication: Other: Hypertension; Additional info: HTN TECHNIQUE: Imaging protocol: Radiologic exam of the chest. Views: 1 view. COMPARISON: CR XR chest 1V portable [id number] 11/11/2023 3:07 PM FINDINGS: Lungs: Unremarkable. No consolidation or mass. Pleural spaces: Unremarkable. No pleural effusion. No pneumothorax. Heart/Mediastinum: Unremarkable. No cardiomegaly. Bones/joints: Unremarkable. XR/XR chest 1V portable [id number] IMPRESSION: No acute findings.
[2024-08-15 17:47] LABS: Basophils % 0.2 %; Eosinophils % 0.2 %; Hematocrit 36.9 % (36-47); Lymphocytes # 0.8 10^3/uL (0.8-4.8); Lymphocytes % 8.6 %; Mean Corpuscular HGB Conc 32.8 g/dL (30-55); Mean Corpuscular Hemoglobin 27.9 pg (27-33); Monocytes # 1.1 10^3/uL (0.2-0.9); Monocytes % 11.8 %; Neutrophils # 7.11 10^3/uL (1.8-7.7); Neutrophils % 78.9 %; Nucleated Red Blood Cells % 0 %; Platelet Count 91 10^3/cmm (157-399); Red Blood Count 4.34 10^6/uL (3.85-5.65); White Blood Count 9.02 10^3/uL (3.29-11.43)
[2024-08-15 18:17] LABS: Alanine Aminotransferase 16 U/L (0-33); Albumin Level 2.7 g/dL (3.5-5.2); Alkaline Phosphatase 145 U/L (35-105); Anion Gap 14.6 (5-19); Aspartate Amino Transferase 31 U/L (0-32); Blood Urea Nitrogen 18 mg/dL (6-20); Calcium 8.3 mg/dL (8.5-10.5); Carbon Dioxide 20 mmol/L (22-29); Chloride 103 mmol/L (98-107); Creatinine Clr Calc Pharmacy 67.8232; Globulin 3.3 g/dL (1.3-4.6); Glomerular Filtration Rate 57.1 mL/min (90-130); Glucose 88 mg/dL (65-115); NT Pro B Type Natriuretic Pept 269 pg/mL (0-125); Osmolality Calculated 279 mOsm/kg (285-295); Potassium 3.6 mmol/L (3.5-5.1); Sodium 134 mmol/L (136-145)
--- NOTE | 2024-08-15 18:35 | ECG_ITS ---
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
[2024-08-15] MEDS: morphine IR 15 mg Tablet PO (18:43)
[2024-08-15 19:02] VITALS: BP 148/70; PULSE 77; RESP 16; O2SAT 96
[2024-08-15 19:17] LABS: Ammonia 83 umol/L (11-51)
[2024-08-15 19:32] LABS: Acetaminophen < 5.0 ug/mL (10-30); Salicylate < 0.3 mg/dL (3-10)
--- NOTE | 2024-08-15 22:11 | W.ED.PSYCHS ---
HPI - Psych General: Chief Complaint: Psychiatric Symptoms Stated Complaint: retaining fluid Time Seen by Provider: 08/15/24 17:27 History of Present Illness: Patient is a liver failure patient due to hep C who has cleared her hep C infection but continues to have liver problems requiring paracentesis to be formed once every week. It was just performed today. She states that for the last week or so she has had pain from head to toe causing her to feel very sad. She feels that her doctor is not taking her pain seriously and that she would like to just take a bunch of sleeping pills and go to sleep and never wake up. She clarifies that this is in fact the thought of completing suicide and not just the passive thought. Mom she is not compliant with her lactulose regimen because she does not like how it makes her go to the bathroom so frequently. She admits that sometimes she feels confused but normally is able to perform activities of daily living. Related Data Home Medications ?Medication ?Instructions ?Recorded ?Confirmed rifaximin 550 mg tablet (Xifaxan) 550 mg PO BID 12/10/23 08/15/24 albuterol sulfate 90 mcg/actuation 2 puff inhalation Q6H PRN 05/15/24 08/15/24 aerosol inhaler (Ventolin HFA) Shortness Of Breath nadolol 20 mg tablet 20 mg PO DAILY 06/13/24 08/15/24 hydroxyzine HCl 25 mg tablet 100 mg PO BEDTIME 08/11/24 08/15/24 cefdinir 300 mg capsule 300 mg PO BID 08/14/24 08/15/24 lactulose 10 gram/15 mL oral 15 ml PO DAILY PRN Constipation 08/14/24 08/15/24 solution (Constulose) paroxetine HCl 40 mg tablet 40 mg PO DAILY 08/14/24 08/15/24 Previous Rx's ?Medication ?Instructions ?Recorded premier protein shakes #90 ea 01/19/24 nitrofurantoin 100 mg PO Q12H 7 days #14 caps 08/11/24 monohydrate/macrocrystals 100 mg capsule (Macrobid) Allergies Allergy/AdvReac Type Severity Reaction Status Date / Time tramadol Allergy ADR-Nausea Verified 08/15/24 11:50 NSAIDS (Non-Steroidal AdvReac Unknown Verified 08/15/24 11:50 Anti-Inflamma PFSH ED PFSH: Medical History COVID-19 Breast lump Screening breast examination Screening for cervical cancer Calculus of kidney Abnormal CT of the abdomen Screening for osteoporosis Elevated TSH Psychiatric care Cellulitis Cellulitis of leg, right COVID-19 Hepatitis C Family History Mother Hypertension Family/Other Hypertension Denies family history of Diabetes CAD (coronary artery disease) Cancer Social History Smoking and tobacco/nicotine status: never used tobacco/nicotine Second hand smoke exposure: Yes Alcohol intake: former Former alcohol use details: 25 years ago Substance/Drug Use: former Former substance use details: 5-6 years ago Adopted: No Caregiver/support person: No Lives independently: Yes Household members: friend(s) Housing: House Marital status: Marital status details: while in [facility], never met him outside of [facility] Number of children: 2 Number of grandchildren: 5 Highest education level completed: Some College, No Degree service: No Current occupational status: disabled Current occupation: working on getting disability Current occupational exposures/hazards: No Pets and animals: Yes Pets & animals: dog(s) Leisure activites: other Leisure activities details: watch movies and play with grand kids Sexually active: No Do you think of yourself as: Straight/Heterosexual Current gender identity: Female Lauren/Yarsani: Christian Special lauren needs: No Agree to transfusion: Yes Female Reproductive History: Para: 2 Physical Exam Const: COMMON NORMALS: no acute distress HENMT: COMMON NORMALS: normocephalic and atraumatic HEAD & SCALP: normocephalic and atraumatic Eye: COMMON NORMALS: Equal, round and reactive pupils present, EOMs intact bilaterally and no scleral icterus PUPIL: Yes Equal, round and reactive pupils present Resp: COMMON NORMALS: normal respiratory effort and No retractions Cardio: COMMON NORMALS: regular rate, regular rhythm and No murmurs present (Cardio) RATE: regular rate RHYTHM: regular rhythm GI: COMMON NORMALS: Normal to inspection, nondistended, normoactive bowel sounds present and Soft to palpation PALPATION: Yes Soft to palpation OTHER: Mildly diffusely tender with no focality. Neuro: OTHER: Alert and oriented to person place and time. Clear speech. No lateralizing deficits of strength or sensation. Psych: OTHER: Admits suicidal thoughts with plan to overdose on sleeping pills. No HI. No delusions or hallucinations. Skin: COMMON NORMALS: no rashes or lesions noted GENERAL SKIN EXAM: no rashes or lesions noted Course Vital Signs: Vital signs: Vital Signs Temperature 98.3 F 08/15/24 17:09 Pulse Rate 77 08/15/24 19:02 Respiratory Rate 16 08/15/24 19:02 Blood Pressure 148/70 08/15/24 19:02 Pulse Oximetry 96 08/15/24 19:02 Oxygen Delivery Me thod Room Air 08/15/24 19:02 MDM - Psych Medical Decision Making In summary, patient is a 59-year-old female seen for suicidal thoughts. She would like to overdose on sleeping pills because she does not feel that her chronic pain is well-controlled. Ammonia level is elevated but she remains alert and oriented. She will be given a dose of lactulose code remainder of medical workup is noncontributory. I spoke with on-call psychiatry who graciously agrees to admit her and for stabilization. She is amenable with this plan and will be admitted voluntarily. Lab Data 08/15/24 17:31 08/15/24 17:31 Radiology Impressions Chest X-Ray 08/15/24 17:09 IMPRESSION: No acute findings. Laboratory Results WBC 9.02 10^3/uL (3.29-11.43) 08/15/24 17: RBC 4.34 10^6/uL (3.85-5.65) 08/15/24 17: Hgb 12.10 g/dL (11.27-16.99) 08/15/24 17: Hct 36.9 % (36-47) 08/15/24 17:31 MCV 85.0 fl (85-98) 08/15/24 17: MCH 27.9 pg (27-33) 08/15/24 17: MCHC 32.8 g/dL (30-55) 08/15/24 17: RDW 13.0 % (12.1-15.1) 08/15/24 17: Plt Count 91 10^3/cmm (157-399) L 08/15/24 17:31 MPV 12.0 fL (7.4-10.4) H 08/15/24 17: Neut % (Auto) 78.9 % 08/15/24 17: Lymph % (Auto) 8.6 % 08/15/24 17: [place] % (Auto) 11.8 % 08/15/24 17: Eos % (Auto) 0.2 % 08/15/24 17: Baso % (Auto) 0.2 % 08/15/24 17: Neut # (Auto) 7.11 10^3/uL (1.8-7.7) 08/15/24 17: Lymph # (Auto) 0.8 10^3/uL (0.8-4.8) 08/15/24 17: [place] # (Auto) 1.1 10^3/uL (0.2-0.9) H 08/15/24 17: Eos # (Auto) 0.0 10^3/uL (0.0-0.8) 08/15/24: Baso # (Auto) 0.0 10^3/uL (0.0-0.1) 08/15/24 17: Nucleated RBC % (auto) 0 % 08/15/24: Nucleated RBCs # 0.0 /100WBC 08/15/24 17: Sodium 134 mmol/L (136-145) L 08/15/24 17: Potassium 3.6 mmol/L (3.5-5.1) 08/15/24 17: Chloride 103 mmol/L (98-107) 08/15/24 17: Carbon Dioxide 20 mmol/L (22-29) L 08/15/24 17:31 Anion Gap 14.6 (5-19) 08/15/24 17: BUN 18 mg/dL (6-20) 08/15/24 17: Creatinine 1.0 mg/dL (0.5-0.9) H 08/15/24 17: GFR Calculation 57.1 mL/min (90-130) L 08/15/24 17:31 Glucose 88 mg/dL (65-115) 08/15/24 17: Calculated Osmolality 279 mOsm/kg (285-295) L 08/15/24 17:31 Calcium 8.3 mg/dL (8.5-10.5) L 08/15/24 17:31 Total Bilirubin 1.0 mg/dL (0.15-1.2) 08/15/24 17:31 AST 31 U/L (0-32) 08/15/24 17: ALT 16 U/L (0-33) 08/15/24 17:31 Alkaline Phosphatase 145 U/L (35-105) H 08/15/24 17: Ammonia 83 umol/L (11-51) H 08/15/24 18:43 NT-Pro-B Natriuret Pep 269 pg/mL (0-125) H 08/15/24 17: Total Protein 6.0 g/dL (6.6-8.7) L 08/15/24 17: Albumin 2.7 g/dL (3.5-5.2) L 08/15/24 17: Globulin 3.3 g/dL (1.3-4.6) 08/15/24 17:31 Urine Color Yellow (Yellow) 08/15/24 22:10 Urine Appearance Clear (CLEAR) 08/15/24 22:10 Urine pH 6.5 (5-7) 08/15/24 22:10 Ur Specific [place] 1.006 (1.005-1.030) 08/15/24 22:10 Urine Protein Negative (Negative) 08/15/24 22:10 Urine Glucose (UA) Negative (Normal) 08/15/24 22:10 Urine Ketones Negative (Negative) 08/15/24 22:10 Urine Blood 2+ (Negative) A 08/15/24 22:10 Urine Nitrate Negative (Negative) 08/15/24 22:10 Urine Bilirubin Negative (Negative) 08/15/24 22:10 Urine Urobilinogen 1.0 mg/dL (Negative) 08/15/24 22:10 Ur Leukocyte Esterase 2+ (Negative) A 08/15/24 22:10 Urine RBC Rare /hpf (0-2) 08/15/24 22:10 Urine WBC 10-15 /hpf (0-5) H 08/15/24 22:10 Ur Squamous Epith Cells 15-25 /hpf (0-5) H 08/15/24 22:10 Amorphous Sediment Not Reportable 08/15/24 22:10 Urine Bacteria Trace /hpf (NONE) 08/15/24 22:10 Urine Yeast Trace /hpf 08/15/24 22:10 Salicylates < 0.3 mg/dL (3-10) L 08/15/24 18:43 Urine Opiates Screen Positive ng/mL (Negative) H 08/15/24 22:10 Acetaminophen < 5.0 ug/mL (10-30) L 08/15/24 18:43 Ur Barbiturates Screen Negative ng/mL (Negative) 08/15/24 22:10 Ur Phencyclidine Scrn Negative ng/mL (Negative) 08/15/24 22:10 Ur Amphetamines Screen Negative ng/mL (Negative) 08/15/24 22:10 U Benzodiazepines Scrn Negative ng/mL (Negative) 08/15/24 22:10 Urine Cocaine Screen Negative ng/mL (Negative) 08/15/24 22:10 U Marijuana (THC) Screen Negative ng/mL (Negative) 08/15/24 22:10 All radiology interpretation(s) finalized by discharge Discharge Plan Discharge Patient Disposition: Admitted As Inpatient Admit Provider: Ebenezer Heaton Clinical Impression: Suicidal thoughts Condition: Stable Discharge Diet: Usual diet Coding Level of Care Code ED Cloth Baler for Vera Freeman
[2024-08-15 22:20] LABS: Bilirubin Urine Negative (Negative); Blood Urine 2+ (Negative); Glucose Urine UA Negative (Normal); Ketones Urine Negative (Negative); Leukocyte Esterase Urine 2+ (Negative); Nitrate Urine Negative (Negative); Protein Urine Negative (Negative); Specific Gravity, Urine 1.006 (1.005-1.030); Urine Appearance Clear (CLEAR); Urine Color Yellow (Yellow); pH Urine 6.5 (5-7)
[2024-08-15 22:24] LABS: Add Urine Microscopic? YES
[2024-08-15 22:27] LABS: Amphetamines Screen Urine Negative (Negative); Barbiturates Screen Urine Negative (Negative); Benzodiazepines Screen Urine Negative (Negative); Cocaine Screen Urine Negative (Negative); Opiate Screen Urine Positive (Negative); PCP Screen Urine Negative (Negative); THC Screen Urine Negative (Negative)
[2024-08-15 22:44] LABS: UA Manual Slide Review YES
[2024-08-15 22:45] LABS: RBC Urine RARE /hpf (0-2); Squamous Epithelial Cell Urine 15-25 /hpf (0-5)
[2024-08-15 22:46] LABS: Add Urine Culture? No; Bacteria Urine TRACE /hpf
[2024-08-16 00:23] VITALS: BP 132/77; PULSE 70; RESP 18; TEMP 36.6; O2SAT 96
[2024-08-16 00:31] VITALS: BP 135/77; PULSE 71; RESP 18; O2SAT 95
[2024-08-16 00:37] VITALS: BP 135/77; PULSE 71; RESP 18; O2SAT 98
[2024-08-16 06:00] VITALS: BP 112/55; PULSE 65; RESP 16; TEMP 37.1; O2SAT 97
[2024-08-16] MEDS: PARoxetine 20 mg Tablet 40 MG PO (13:37)
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
--- NOTE | 2024-08-16 13:56 | PM.CONSULT ---
Providers/Reason For Consult Consulting Physician/Specialty*: Hospitalist Reason for Consult*: Pain management Attending Physician: Ebenezer Heaton MD Primary Care Provider: MARCELINO Rodrigez History of Present Illness History of Present Illness Sandy Ernandez is a 59 year old female with past medical history of liver cirrhosis possibly on liver transplant list, methamphetamine drug abuse with reported last use few years ago, hepatitis C depression, anxiety, PTSD who was admitted to Neuropsych Unit for suicidal ideation. Medicine was consulted because of generalized body aches which patient has been having on and off for few weeks. Examination patient is sitting comfortably in chair having conversation over the phone but on examination complaining of pain all over her body exacerbated by minimal movements and even taking deep breaths. Complaining of sore mouth. States she gets weekly paracentesis with last paracentesis done on 08/15 when 900 cc of fluid was removed. Review of Systems General: Reports: 10 or more systems reviewed and unremarkable except in HPI and below Const: Denies: fever(s), chills, body aches, change in appetite, change in weight, malaise, night sweats, diaphoresis, change in sleep pattern, daytime sleepiness or snoring Eyes: Denies: change in vision, blurry vision, photophobia, eye discomfort or eye discharge ENMT: Denies: throat pain, enlarged tonsils, hoarseness, mouth pain, oral sores, dry mouth, tinnitus, nasal congestion or post nasal drip Card: Denies: chest pain, palpitations, irregular heart rhythm, edema, swelling of feet/ankles, lightheadedness, syncope, pre-syncope, dyspnea on exertion, orthopnea, leg pain with exertion or acrocyanosis Resp: Denies: dyspnea, productive cough, non-productive cough, wheezing, stridor, pain on inspiration, change in phlegm color, hemoptysis or chest congestion GI: Denies: abdominal pain, nausea, vomiting, hematemesis, coffee ground emesis, dysphagia, heartburn, diarrhea, constipation, bloating, GI cramping, change in bowel habits, pain on defecation, hematochezia or melena : Denies: flank pain, dysuria, urinary frequency, urinary urgency, urinary hesitancy, nocturia or hematuria Musc: Denies: neck pain, back pain, extremity pain, joint pain, joint swelling, joint redness, joint stiffness or limited range of motion Neuro: Denies: headache(s), numbness in extremities, weakness in extremities, sensory changes, lack of coordination, difficulty walking, frequent falls, dizziness, vertigo, confusion, Slurred speech present, difficulty communicating thoughts or seizure-like activity Psych: Denies: anxiety, depression, mood swings, panic attacks, hopelessness or irritability Endo: Denies: polyuria, polydipsia, tired all the time, cold intolerance, excessive sweating, flushing or heat intolerance Jesus/Lymph: Denies: easy bruising or easy bleeding All/Imm: Denies: tongue swelling, facial swelling or acute wheezing Medications/Allergies Home Medications ?Medication ?Instructions ?Recorded ?Confirmed ?Last Taken ?Type rifaximin 550 mg tablet (Xifaxan) 550 mg PO BID 12/10/23 08/16/24 08/15/24 History albuterol sulfate 90 mcg/actuation 2 puff inhalation Q6H PRN 05/15/24 08/16/24 08/07/24 History aerosol inhaler (Ventolin HFA) Shortness Of Breath nadolol 20 mg tablet 20 mg PO BEDTIME 06/13/24 08/16/24 08/14/24 History hydroxyzine HCl 25 mg tablet 100 mg PO BEDTIME 08/11/24 08/16/24 08/14/24 History cefdinir 300 mg capsule 300 mg PO BID 08/14/24 08/16/24 08/15/24 History lactulose 10 gram/15 mL oral 15 ml PO DAILY PRN Constipation 08/14/24 08/16/24 08/14/24 History solution (Constulose) paroxetine HCl 40 mg tablet 40 mg PO DAILY 08/14/24 08/16/24 08/14/24 History spironolactone 25 mg tablet 200 mg PO DAILY 08/16/24 08/16/24 Unknown History Allergies Allergy/AdvReac Type Severity Reaction Status Date / Time tramadol Allergy ADR-Nausea Verified 08/15/24 11:50 NSAIDS (Non-Steroidal AdvReac Unknown Verified 08/15/24 11:50 Anti-Inflamma Current Medications Generic Name Dose Route Start Last Admin Trade Name Freq PRN Reason Stop Dose Admin Paroxetine HCl 40 mg 08/16/24 13:30 08/16/24 13:37 Paroxetine 20 Mg Tablet PO 40 mg DAILY ABBIE Administration PFSH Acute PFSH: Medical History (Updated 08/16/24 @ 15:15 by Keaton Farnsworth MD) Thrombocytopenia S/P abdominal paracentesis COVID-19 Breast lump Screening breast examination Screening for cervical cancer Calculus of kidney Abnormal CT of the abdomen Screening for osteoporosis Elevated TSH Psychiatric care Cellulitis Cellulitis of leg, right COVID-19 Hepatitis C Family History Mother Hypertension Family/Other Hypertension Denies family history of Diabetes CAD (coronary artery disease) Cancer Social History Smoking and tobacco/nicotine status: never used tobacco/nicotine Second hand smoke exposure: Yes Alcohol intake: former Former alcohol use details: 25 years ago Substance/Drug Use: former Former substance use details: 5-6 years ago Adopted: No Caregiver/support person: No Lives independently: Yes Household members: friend(s) Housing: House Marital status: Marital status details: while in [place], never met him outside of [facility] Number of children: 2 Number of grandchildren: 5 Highest education level completed: Some College, No Degree service: No Current occupational status: disabled Current occupation: working on getting disability Current occupational exposures/hazards: No Pets and animals: Yes Pets & animals: dog(s) Leisure activites: other Leisure activities details: watch movies and play with grand kids Sexually active: No Do you think of yourself as: Straight/Heterosexual Current gender identity: Female Lauren/Orthodoxy: Christian Special lauren needs: No Agree to transfusion: Yes Female Reproductive History: Para: 2 Vitals/I&O/Wt Last Vital Signs Temp 98.7 F 08/16/24 06:00 Pulse 65 08/16/24 06:00 Resp 16 08/16/24 06:00 BP 112/55 08/16/24 06:00 Pulse Ox 97 08/16/24 06:00 O2 Del Method Room Air 08/16/24 06:00 08/15/24 08/16/24 08/16/24 22:59 06:59 14:59 Intake Total 0 / 0 Balance 0 / 0 Weight last 48 hrs Weight 87.543 kg Physical Exam Narrative: General: No acute distress, AO x3, complaining of pain all over her body, able to ambulate HEENT: PERRLA, pupils bilaterally equal and reactive Chest: Normal vesicular breath sounds, no added sounds, equal good air entry bilaterally CVS: S1-S2 regular, no murmurs, no tachycardia, no gallops, no rubs Abdomen: Soft, distended, guarding present, no rebound tenderness, generalized tender, no organomegaly, bowel sounds present Neuro: No focal deficits, no facial deformity, AO x3, power 5/5 in all limbs Data 08/15/24 17:31 08/15/24 17:31 A&P Assessment and plan (1) Pain: Complains of generalized pain all over the body. Aggravated by minimal movement. More so in back. Most likely neuropathy pain given liver cirrhosis versus psychosomatic. Will plan for thoracolumbar x-ray. Depending on findings can plan for further imaging. Check vitamin B12, thiamine, folate levels. Start on Lyrica 75 mg twice daily. [place] 5 mg every 8 hours as needed. Not to exceed 2 g of Tylenol. Patient is allergic to NSAIDs and tramadol. Asking for morphine. (2) Cirrhosis: Insetting of hepatitis C. Follows up with real property evaluator [facility]. Check CMP, GGT, INR, hepatitis panel, HIV. Restart home dose of nadolol. Home dose of rifaximin. Elevated ammonia levels but states she has been having 2-3 bowel movements daily. Change lactulose to as needed (3) Hepatitis C: Check hepatitis panel and viral load. (4) Abdominal ascites: Gets weekly paracentesis. Last paracentesis on 08/15. Appreciate fluid studies. Less likely SBP. Will ask for fluid cultures. Continue with fluid restriction. Hold off on spironolactone for now. (5) Serum ammonia increased: As above. (6) Thrush, oral: Could be in setting of liver cirrhosis. Start on nystatin swish and swallow. Check HIV and hepatitis panel as above. (7) S/P abdominal paracentesis: (8) MDD (major depressive disorder), recurrent severe, without psychosis: (9) Suicidal thoughts: As per primary team. (10) Thrombocytopenia: Chronic. In setting of liver cirrhosis. Continue to monitor. Plan History of meth abuse. Full code Regular diet Protonix for PUD prophylaxis Thank you for involving us in care of Ms. Awais. Please call back with any questions. PDMP PDMP Reviewed: Not Reviewed Consult Attestations Medical Necessity Statement: As per primary team Diagnoses Pain R52 Cirrhosis of liver without ascites, unspecified hepatic cirrhosis type K74.60 Hepatic cirrhosis type: unspecified hepatic cirrhosis Ascites presence: without ascites Hepatitis C B19.20 Abdominal ascites R18.8 Serum ammonia increased E72.20 Thrush, oral B37.0 S/P abdominal paracentesis Z98.890 MDD (major depressive disorder), recurrent severe, without psychosis F33.2 Suicidal thoughts R45.851 Thrombocytopenia D69.6
[2024-08-16 14:00] VITALS: BP 138/71; PULSE 74; RESP 16; TEMP 36.6; O2SAT 99
--- NOTE | 2024-08-16 15:13 | XRR_ITS ---
PROCEDURE INFORMATION: Exam: XR Lumbosacral Spine Exam date and time: 08/16/2024 3:31 PM Age: 59 years old Clinical indication: Low back pain. No history of recent trauma or surgery is provided. TECHNIQUE: Imaging protocol: Radiologic exam of the lumbosacral spine. 2image(s) are provided. Views: 2 or 3 views. COMPARISON: CT abdomen pelvis wo con [id number] 04/10/2024 1:41 PM. No previous lumbar study is otherwise currently available. FINDINGS: Bones/joints: There is subtle dextrocurvature versus positioning present. Symmetric appearance of the sacral arcuate lines and sacroiliac junctions are appreciated. There appear to be some mild degenerative changes of the hips. There is some multilevel degeneration overall throughout the spine including spondylosis and areas of disc space narrowing. There is some endplate degeneration, Schmorl's node appearance superiorly of the L4 level similar overall. There is some exuberant posterior element hypertrophy present similar. No interval displaced fracture or dislocation is appreciated. Soft tissues: No radiopaque foreign body or subcutaneous emphysema is appreciated. Intraperitoneal space: There are right upper quadrant cholecystectomy type clips present. No other significant interval changes are appreciated. XR/XR lumbar spine 2-3V* [id number] IMPRESSION: There are multilevel degenerative changes present of the lumbar spine overall similar with no interval fracture or dislocation appreciated. If there is persistent pain or radicular-type symptoms then consider MRI.
[2024-08-16 15:24] LABS: HIV 1 & 2 Antibody Non-Reactive (Non-Reactiv); HIV 1 & 2 Antigen Non-Reactive (Non-Reactiv)
[2024-08-16] MEDS: pantoprazole DR 40 mg Tablet PO (15:50)
[2024-08-16] MEDS: HYDROcodone-acetaminophen 5-325 mg Tablet 1 TAB PO (15:50)
[2024-08-16 16:46] LABS: Basophils # 0.1 10^3/uL (0.0-0.1); Basophils % 0.6 %; Eosinophils # 0.1 10^3/uL (0.0-0.8); Eosinophils % 1.3 %; Hematocrit 38.5 % (36-47); Lymphocytes # 0.6 10^3/uL (0.8-4.8); Lymphocytes % 7.3 %; Mean Corpuscular HGB Conc 31.9 g/dL (30-55); Mean Corpuscular Hemoglobin 28.1 pg (27-33); Mean Corpuscular Volume 87.9 fl (85-98); Mean Platelet Volume 12.1 fL (7.4-10.4); Monocytes # 1.1 10^3/uL (0.2-0.9); Monocytes % 13.4 %; Neutrophils # 6.03 10^3/uL (1.8-7.7); Nucleated Red Blood Cells % 0 %; Platelet Count 101 10^3/cmm (157-399); Red Blood Count 4.38 10^6/uL (3.85-5.65); Red Cell Distribution Width 13.5 % (12.1-15.1); White Blood Count 7.83 10^3/uL (3.29-11.43)
[2024-08-16 17:07] LABS: Gamma Glutamyl Transferase 39 U/L (5-36)
[2024-08-16] MEDS: nystatin 100,000 unit/mL UDC 5 mL 200000 UNIT PO ×2 (17:17→20:24)
[2024-08-16] MEDS: rifaximin 200 mg Tablet 600 MG PO (17:17)
[2024-08-16] MEDS: pregabalin 75 mg Capsule PO (17:17)
[2024-08-16 17:36] LABS: Procalcitonin 0.08 ng/mL (0-0.5); Thyroid Stimulating Hormone 5.46 uIU/mL (0.27-4.20); Vitamin B12 439 pg/mL (232-1245)
[2024-08-16 17:49] LABS: Alanine Aminotransferase 24 U/L (0-33); Albumin Level 2.7 g/dL (3.5-5.2); Alkaline Phosphatase 118 U/L (35-105); Anion Gap 17.3 (5-19); Aspartate Amino Transferase 49 U/L (0-32); Blood Urea Nitrogen 21 mg/dL (6-20); Calcium 8.5 mg/dL (8.5-10.5); Carbon Dioxide 21 mmol/L (22-29); Chloride 101 mmol/L (98-107); Creatinine Clr Calc Pharmacy 52.1717; Globulin 3.4 g/dL (1.3-4.6); Glomerular Filtration Rate 42.2 mL/min (90-130); Glucose 66 mg/dL (65-115); Iron 111 ug/dL (37-145); Lactate Dehydrogenase 258 U/L (135-214); Osmolality Calculated 283 mOsm/kg (285-295); Percent Saturation 55.2 % (20-50); Potassium 3.3 mmol/L (3.5-5.1); Sodium 136 mmol/L (136-145); Total Bilirubin 1.7 mg/dL (0.15-1.2); Total Iron Binding Capacity 201 mcg/dl; Total Protein 6.1 g/dL (6.6-8.7); Unsaturated Iron Binding 90 ug/dL (112-347)
[2024-08-16 19:37] VITALS: BP 121/65; PULSE 76; RESP 18; TEMP 36.8; O2SAT 96
--- NOTE | 2024-08-16 20:14 | PC.NURSE ---
PRN MED PATIENT GIVEN TRAZODONE 50MG FOR SLEEP PER PATIENT REQUEST.
[2024-08-16] MEDS: trazodone 50 mg Tablet PO (20:24)
[2024-08-16] MEDS: hyDROXYzine 25 mg Capsule 100 MG PO (20:26)
[2024-08-16 21:35] LABS: Hepatitis A Antibody IgM Non-Reactive (Nonreactive); Hepatitis B Core AB, Total Non-Reactive (Nonreactive); Hepatitis B Surface AB 261.9 (11.5-1000); Hepatitis B Surface Antigen Non-Reactive (Nonreactive)
[2024-08-16 22:22] LABS: Hepatitis C Virus Antibody Reactive (Nonreactive)
[2024-08-17 05:22] VITALS: BP 154/74; PULSE 101; RESP 18; TEMP 38.6; O2SAT 98
[2024-08-17] MEDS: acetaminophen 325 mg Tablet 650 MG PO ×3 (05:25→23:47)
[2024-08-17 08:56] LABS: Basophils % 0.4 %; Eosinophils # 0.1 10^3/uL (0.0-0.8); Eosinophils % 0.7 %; Hematocrit 35.4 % (36-47); Lymphocytes # 0.5 10^3/uL (0.8-4.8); Lymphocytes % 7.2 %; Mean Corpuscular HGB Conc 31.6 g/dL (30-55); Mean Corpuscular Hemoglobin 27.8 pg (27-33); Mean Corpuscular Volume 87.8 fl (85-98); Mean Platelet Volume 11.2 fL (7.4-10.4); Monocytes # 0.8 10^3/uL (0.2-0.9); Monocytes % 11.3 %; Neutrophils # 5.51 10^3/uL (1.8-7.7); Neutrophils % 79.7 %; Nucleated Red Blood Cells % 0 %; Platelet Count 77 10^3/cmm (157-399); Red Blood Count 4.03 10^6/uL (3.85-5.65); Red Cell Distribution Width 13.3 % (12.1-15.1); White Blood Count 6.92 10^3/uL (3.29-11.43)
[2024-08-17] MEDS: PARoxetine 20 mg Tablet 40 MG PO (09:08)
[2024-08-17] MEDS: HYDROcodone-acetaminophen 5-325 mg Tablet 1 TAB PO ×2 (09:08→20:32)
[2024-08-17] MEDS: pregabalin 75 mg Capsule PO ×2 (09:08→18:37)
[2024-08-17] MEDS: pantoprazole DR 40 mg Tablet PO (09:08)
[2024-08-17] MEDS: rifaximin 200 mg Tablet 600 MG PO ×2 (09:09→18:36)
[2024-08-17] MEDS: nystatin 100,000 unit/mL UDC 5 mL 200000 UNIT PO ×2 (09:09→14:08)
[2024-08-17 09:10] LABS: INR 1.33 (0.8-1.2)
[2024-08-17 09:18] LABS: Alanine Aminotransferase 21 U/L (0-33); Albumin Level 2.5 g/dL (3.5-5.2); Alkaline Phosphatase 113 U/L (35-105); Anion Gap 14.6 (5-19); Aspartate Amino Transferase 44 U/L (0-32); Blood Urea Nitrogen 25 mg/dL (6-20); Carbon Dioxide 20 mmol/L (22-29); Chloride 100 mmol/L (98-107); Creatinine Clr Calc Pharmacy 45.2155; Glomerular Filtration Rate 35.8 mL/min (90-130); Glucose 114 mg/dL (65-115); Osmolality Calculated 277 mOsm/kg (285-295); Potassium 3.6 mmol/L (3.5-5.1); Sodium 131 mmol/L (136-145); Total Bilirubin 1.5 mg/dL (0.15-1.2); Total Protein 5.5 g/dL (6.6-8.7)
[2024-08-17 09:33] LABS: Folate Level 7.3 ng/mL (4.8-37.3)
[2024-08-17 13:50] VITALS: BP 115/53; PULSE 92; RESP 19; TEMP 38.6; O2SAT 93
--- NOTE | 2024-08-17 14:23 | P.NPUPN_ITS ---
Subjective NPU 2 Subjective: 59-year-old female admitted with conting ent suicidality and increased depression with a past history of methamphetamine abuse. Patient had reported that she was feeling better. She had continued to report some pain but stated that the medications had been helpful. She had continued to refuse her lactulose and stated that she needed more help with going to the bathroom at home. The patient reported no current side effects. She had continued to report that she struggled with garnering attention from her family regarding her medical problems. She had continued to utilize the the nurses for help regarding her pain medications. Mental Status Exam 2 MSE Comments: Patient was alert and oriented to person, place, time, and situation. She was lying in bed and appeared in moderate distress. Her hygiene was poor. Her speech was normal in regards to rate, rhythm, and prosody. She had fair eye contact. There was evidence of mild psychomotor retardation. There was no evidence of any abnormal involuntary motor movements, tics, or tremors appreciated. Her mood was described as a little better. Her affect was restricted in range and mood congruent. Her thought process was linear, logical, and goal-directed. Her thought process revealed no suicidal ideation today. She denied any homicidal ideation. She denied any auditory or visual hallucinations. She did not appear to be responding internal stimuli. There is no evidence of delusional thinking. Her recent and remote memory appear grossly intact. Her insight is impaired. Her judgment is poor. Her impulse control appeared limited. Vitals/I&O/Wt Last Vital Signs Temp 101.4 F H 08/17/24 13:50 Pulse 92 08/17/24 13:50 Resp 19 H 08/17/24 13:50 BP 115/53 08/17/24 13:50 Pulse Ox 93 08/17/24 13:50 O2 Del Method Room Air 08/17/24 13:50 08/16/24 08/17/24 08/17/24 22:59 06:59 14:59 Intake Total 240 / 240 Balance 240 / 240 Weight last 48 hrs Weight 87.543 kg Data NPU 08/17/24 08:41 08/17/24 08:41 Micro: Microbiology 08/15/24 12:55 Gram Stain - Final Ascites Fluid Body Fluid Culture - Preliminary 08/16/24 16:26 Blood Culture - Preliminary Blood SPECIMEN COLLECTED 08/16/24 14:28 Blood Culture - Preliminary Blood SPECIMEN COLLECTED Microbiology 08/15/24 12:55 Ascites Fluid Gram Stain - Final 08/15/24 12:55 Ascites Fluid Body Fluid Culture - Preliminary 08/16/24 16:26 Blood Blood Culture - Preliminary SPECIMEN COLLECTED 08/16/24 14:28 Blood Blood Culture - Preliminary SPECIMEN COLLECTED A&P Assessment and plan (1) MDD (major depressive disorder), recurrent severe, without psychosis: (2) Generalized anxiety disorder: (3) Post-traumatic stress disorder, chronic: (4) Suicidal thoughts: (5) Methamphetamine use disorder, severe, in sustained remission: Plan 59-year-old female with hepatitis C and cirrhosis along with symptom suggestive of PTSD, major depressive disorder, generalized anxiety disorder along with a history of methamphetamine abuse in remission reporting suicidal ideation and pain with poor compliance with her medications. #1.? Engage patient in individual milieu and group therapy. #2?? Recommend sober living treatment at the highest level of care to which the patient is willing to commit #3??? Restart outpatient medications including Paxil 40mg daily and Hydroxyzine at night for sleep routinely #4?? TO-15 minute checks? #5?? Will attempt to gather collateral information #6 Medical referral regarding pain issues and pharmacotherapy given liver issues. PDMP PDMP Reviewed: Not Reviewed Involuntary Hold Information 2 Hold Status: Date/Time Hold Expires: Vol Attestations NPU 2 Medical Necessity Statement*: Inpatient hospitalization is medically necessary and deemed to be?the clinically appropriate intervention ?at this time.? We will monitor/initiate medications and make changes as indicated.? The patient?s likely length of stay 1-2 days. Coding Level of Care Code Acute Code for Chg Fwd Diagnoses MDD (major depressive disorder), recurrent severe, without psychosis F33.2 Generalized anxiety disorder F41.1 Post-traumatic stress disorder, chronic F43.12 Suicidal thoughts R45.851 Methamphetamine use disorder, severe, in sustained remission F15.21
[2024-08-17 16:59] VITALS: BP 145/69; PULSE 95; RESP 19; TEMP 38; O2SAT 95
[2024-08-17 17:34] LABS: Bilirubin Urine 1+ (Negative); Blood Urine 1+ (Negative); Glucose Urine UA Negative (Normal); Ketones Urine Trace (Negative); Leukocyte Esterase Urine 2+ (Negative); Nitrate Urine Negative (Negative); Protein Urine Trace (Negative); Specific Gravity, Urine 1.022 (1.005-1.030); Urine Appearance Cloudy (CLEAR)
[2024-08-17 17:39] LABS: Add Urine Microscopic? YES; Bacteria Urine None Seen /hpf; Hyaline Casts Urine 10.73 /lpf; Squamous Epithelial Cell Urine 0-5 /hpf (0-5); WBC Urine >100 /hpf (0-5)
[2024-08-17 17:46] LABS: UA Slide Review UA Slide Review Perf; Urine Color Orange (Yellow)
[2024-08-17 17:47] LABS: Add Urine Culture? Yes
[2024-08-17] MEDS: linezolid 600 mg Tablet PO (18:37)
[2024-08-17 20:29] VITALS: BP 123/56; PULSE 86; RESP 18; TEMP 38.6; O2SAT 96
[2024-08-17] MEDS: hyDROXYzine 25 mg Capsule 100 MG PO (20:32)
[2024-08-17 22:11] VITALS: TEMP 39.6
[2024-08-17 23:50] VITALS: TEMP 37.4
[2024-08-18] VITALS (7 sets, daily range): BP systolic 109–147; BP diastolic 53–82; PULSE 70–84; RESP 15–21; TEMP 36.7–36.9; O2SAT 94–97
[2024-08-18] MEDS: linezolid 600 mg Tablet PO (05:56)
[2024-08-18] MEDS: rifaximin 200 mg Tablet 600 MG PO ×2 (07:57→17:38)
[2024-08-18] MEDS: HYDROcodone-acetaminophen 5-325 mg Tablet 1 TAB PO ×3 (07:58→23:22)
[2024-08-18] MEDS: pregabalin 75 mg Capsule PO ×2 (07:58→17:35)
[2024-08-18] MEDS: PARoxetine 20 mg Tablet 40 MG PO (07:58)
[2024-08-18] MEDS: pantoprazole DR 40 mg Tablet PO (07:58)
--- NOTE | 2024-08-18 08:21 | US_ITS ---
WS: [id number] INDICATION: Ascites TECHNIQUE: Ultrasound abdomen limited FINDINGS: Small amount of abdominal ascites in the LEFT lower quadrant. Significant abdominal wall thickening. US/US abdomen lmt fluid [id number] IMPRESSION: Small amount of abdominal ascites LEFT lower quadrant
--- NOTE | 2024-08-18 08:54 | PC.NURSE ---
Morning assessment Patient denies Si, HI, AVH, depression, and anxiety during morning shift assessment. Patient reports abdominal pain 7/10 and chest pain when she coughs. Lungs sounds are clear. Patient reports dizziness. VS obtained by DELFIN Lanier GN.
--- NOTE | 2024-08-18 12:58 | PC.NURSE ---
Medication delayed d/t poor peripheral access. Noy, Rocket Engine Component Mechanic, placing IV at this time via ultrasound.
--- NOTE | 2024-08-18 14:03 | US_ITS ---
WS: [id number] ULTRASOUND-GUIDED PARACENTESIS CLINICAL INFORMATION: Fluid for testing Procedure Informed consent: The risks, benefits, and alternatives of the procedure were discussed with the patient. Verbal and written consent was obtained. Timeout: A timeout was performed to confirm the correct patient, procedure, and site. Preparation: A suitable skin site was identified. The patient was prepped and draped in usual sterile fashion. Lidocaine 1% was used for local anesthesia. Catheter: 4 Israeli One-step Yueh catheter. Side: LEFT lower quadrant. Fluid Volume: 1000 ml Color: Clear yellow Complications: None. US/US paracentesis abd w [id number] IMPRESSION: Uncomplicated ultrasound-guided paracentesis. Removal of 1000 cc Fluid sent for requested diagnostic tests.
[2024-08-18 14:28] LABS: Basophils % 0.4 %; Eosinophils % 0.8 %; Hematocrit 32.3 % (36-47); Lymphocytes # 0.3 10^3/uL (0.8-4.8); Lymphocytes % 5.6 %; Mean Corpuscular HGB Conc 32.5 g/dL (30-55); Mean Corpuscular Hemoglobin 28.2 pg (27-33); Mean Corpuscular Volume 86.8 fl (85-98); Mean Platelet Volume 13.8 fL (7.4-10.4); Monocytes # 0.7 10^3/uL (0.2-0.9); Monocytes % 13.7 %; Neutrophils % 79.1 %; Nucleated Red Blood Cells % 0 %; Platelet Count 60 10^3/cmm (157-399); Red Blood Count 3.72 10^6/uL (3.85-5.65); Red Cell Distribution Width 13.5 % (12.1-15.1); White Blood Count 5.18 10^3/uL (3.29-11.43)
--- NOTE | 2024-08-18 14:34 | P.PN_ITS ---
Subjective 2 Subjective: Patient seen and Neuropsych Unit. Complaining of generalized body pain. Denies any other complaints other than mild dysuria. Tmax last 24 hours 103.1 Fahrenheit today morning. Complains of mild diarrhea. Vitals/I&O/Wt Last Vital Signs Temp 98.2 F 08/18/24 12:08 Pulse 71 08/18/24 14:22 Resp 16 08/18/24 14:22 BP 109/53 08/18/24 14:22 Pulse Ox 94 08/18/24 14:22 O2 Del Method Room Air 08/18/24 14:22 08/17/24 08/18/24 08/18/24 22:59 06:59 14:59 Intake Total 240 / 480 240 / 240 Balance 240 / 480 240 / 240 Physical Exam 2 Narrative: General: No acute distress, AO x3, complaining of pain all over her body, able to ambulate HEENT: PERRLA, pupils bilaterally equal and reactive Chest: Normal vesicular breath sounds, no added sounds, equal good air entry bilaterally CVS: S1-S2 regular, no murmurs, no tachycardia, no gallops, no rubs Abdomen: Soft, distended, guarding present, no rebound tenderness, generalized tender, no organomegaly, bowel sounds present Neuro: No focal deficits, no facial deformity, AO x3, power 5/5 in all limbs Data 08/18/24 14:16 08/18/24 14:16 Micro: Microbiology 08/18/24 14:20 Blood Culture - Preliminary Blood SPECIMEN COLLECTED 08/18/24 14:16 Blood Culture - Preliminary Blood SPECIMEN COLLECTED 08/16/24 16:26 Blood Culture - Preliminary Blood NEGATIVE TO DATE 08/16/24 14:28 Blood Culture - Preliminary Blood NEGATIVE TO DATE 08/15/24 12:55 Gram Stain - Final Ascites Fluid Body Fluid Culture - Preliminary A&P Assessment and plan (1) Fever: Cannot rule out sepsis. Patient admitted with suicidal ideation. Complaining of generalized body pains. Having fever up to 103 for last 24 hours. Follow-up blood cultures. Repeat blood culture today. Follow-up fluid studies and culture from 08/14. Does have concern for UTI as per [facility]. Follow-up urine culture. Past urine cultures positive for Enterococcus. Started on linezolid yesterday. For now transition to IV vancomycin. Add IV meropenem as per creatinine clearance. Will repeat diagnostic paracentesis to rule out SBP. Check respiratory viral panel. (2) CODY (acute kidney injury): Creatinine up to 1.5 for now. Cannot rule out hepatorenal syndrome. For now start on gentle IV hydration with NS at 75 cc/h. Blood pressure stable. Medical reconciliation done for nephrotoxic drugs. Monitor BMP daily for now. (3) Pain: Complains of generalized pain all over the body. Aggravated by minimal movement. More so in back. Most likely neuropathy pain given liver cirrhosis versus psychosomatic. Will plan for thoracolumbar x-ray. Depending on findings can plan for further imaging. Check vitamin B12, thiamine, folate levels. Start on Lyrica 75 mg twice daily. [place] 5 mg every 8 hours as needed. Not to exceed 2 g of Tylenol. Patient is allergic to NSAIDs and tramadol. Asking for morphine. (4) Cirrhosis: Insetting of hepatitis C. 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 Negative HIV. Appreciate hepatitis panel. Continue with home dose of nadolol, rifaximin. Elevated ammonia levels but states she has been having 2-3 bowel movements daily. Change lactulose to as needed (5) Hepatitis C: Follow-up viral load. (6) Abdominal ascites: Gets weekly paracentesis. Last paracentesis on 08/15. Appreciate fluid studies. Less likely SBP. Will ask for fluid cultures. Repeat diagnostic paracentesis today. (7) Serum ammonia increased: As above. (8) Thrush, oral: Could be in setting of liver cirrhosis. Continue with nystatin swish and swallow. (9) S/P abdominal paracentesis: (10) MDD (major depressive disorder), recurrent severe, without psychosis: (11) Suicidal thoughts: As per primary team. [facility]. (12) Thrombocytopenia: Chronic. In setting of liver cirrhosis. Continue to monitor. Plan History of meth abuse. Full code Regular diet Protonix for PUD prophylaxis Thank you for involving us in care of Ms. Ernandez. Please call back with any questions. [facility], further workup for febrile episode while sepsis is ruled out, paracentesis. PDMP PDMP Reviewed: Last Reviewed 08/16/24 15:10 by Keaton Farnsworth MD Attestations 2 Medical Necessity Statement*: Requires further hospitalization for management of suicidal ideation, febrile episode under evaluation Diagnoses Fever R50.9 CODY (acute kidney injury) N17.9 Pain R52 Cirrhosis of liver without ascites, unspecified hepatic cirrhosis type K74.60 Ascites presence: without ascites Hepatic cirrhosis type: unspecified hepatic cirrhosis Hepatitis C B19.20 Abdominal ascites R18.8 Serum ammonia increased E72.20 Thrush, oral B37.0 S/P abdominal paracentesis Z98.890 MDD (major depressive disorder), recurrent severe, without psychosis F33.2 Suicidal thoughts R45.851 Thrombocytopenia D69.6
[2024-08-18] MEDS: nystatin 100,000 unit/mL UDC 5 mL 200000 UNIT PO ×3 (14:36→21:54)
[2024-08-18] MEDS: meropenem 1,000 mg SDV 1000 MG IVP (14:36)
[2024-08-18] MEDS: vancomycin 1,250 MG/250 ML PIGGYBACK 166.67 MG IV (14:36)
[2024-08-18] MEDS: sodium chloride 0.9% 1,000 ML 75 ML IV (14:37)
[2024-08-18 14:44] LABS: Apprearance, Body Fluid CLEAR; Color, Body Fluid YELLOW; PATH Referral YES
[2024-08-18 14:44] LABS: HEP C RNA Viral Load Quant <1.18 NOT DETECTED Log IU/mL (NOT DETECTED); HEP C RNA Viral Load Quant <15 NOT DETECTED IU/mL (NOT DETECTED)
[2024-08-18 14:51] LABS: Alanine Aminotransferase 18 U/L (0-33); Albumin Level 2.1 g/dL (3.5-5.2); Alkaline Phosphatase 125 U/L (35-105); Anion Gap 12.4 (5-19); Aspartate Amino Transferase 38 U/L (0-32); Blood Urea Nitrogen 28 mg/dL (6-20); Calcium 7.6 mg/dL (8.5-10.5); Carbon Dioxide 20 mmol/L (22-29); Chloride 102 mmol/L (98-107); Creatinine Clr Calc Pharmacy 45.2155; Globulin 3.1 g/dL (1.3-4.6); Glomerular Filtration Rate 35.8 mL/min (90-130); Glucose 135 mg/dL (65-115); Osmolality Calculated 280 mOsm/kg (285-295); Potassium 3.4 mmol/L (3.5-5.1); Sodium 131 mmol/L (136-145); Total Bilirubin 1.1 mg/dL (0.15-1.2); Total Protein 5.2 g/dL (6.6-8.7)
[2024-08-18 14:58] LABS: Body Fluid Polynuclear #Cells 0.007; Body Fluid WBC 71 /uL; Monocytes # Body Fluid 0.064; RBC, Body Fluid 0 10^3/uL
[2024-08-18 15:21] LABS: Albumin Body Fluid 0.6 g/dL; Cholesterol Body Fluid 14 mg/dL (0-200); Fluid Alkaline Phos. 20 IU/L; LDH Body Fluid 47 U/L; Triglycerides Body Fluid 27 mg/dL (0-150)
[2024-08-18 15:22] LABS: Cyto Order Verification Order Verified; Uric Acid Body Fluid 6 mg/dL
--- NOTE | 2024-08-18 15:48 | PHA.VACGOAL ---
Vancomycin Goal - Goal Vancomycin Goal:: 15-20 mg/L Vancomycin Indication:: Other (sepsis) - Therapy Current therapy:: Meropenem Day of therpy:: Day [1]of [] Actual body weight (kg): 87.543 kg - Data Labs: WBC 5.18 10^3/uL (3.29-11.43) 08/18/24 14:16 RBC 3.72 10^6/uL (3.85-5.65) L 08/18/24 14:16 Hgb 10.50 g/dL (11.27-16.99) L 08/18/24 14:16 Hct 32.3 % (36-47) L 08/18/24 14:16 MCV 86.8 fl (85-98) 08/18/24 14:16 MCH 28.2 pg (27-33) 08/18/24 14:16 MCHC 32.5 g/dL (30-55) 08/18/24 14:16 RDW 13.5 % (12.1-15.1) 08/18/24 14:16 Sodium 131 mmol/L (136-145) L 08/18/24 14:16 Potassium 3.4 mmol/L (3.5-5.1) L 08/18/24 14:16 Chloride 102 mmol/L (98-107) 08/18/24 14:16 Carbon Dioxide 20 mmol/L (22-29) L 08/18/24 14:16 Anion Gap 12.4 (5-19) 08/18/24 14:16 BUN 28 mg/dL (6-20) H 08/18/24 14:16 Creatinine 1.5 mg/dL (0.5-0.9) H 08/18/24 14:16 GFR Calculation 35.8 mL/min (90-130) L 08/18/24 14:16 Treatment plan:: new consult Regimen:: New start vancomycin for sepsis. No prior history of Vancomycin found. Started on maintenance dose of 1250 mg q24h.
[2024-08-18 16:51] LABS: Body Fluid Specific Gravity 1.015
[2024-08-18 17:42] LABS: Adenovirus Not Detected (NOT DETECT); Chlamydia Pneumoniae Not Detected (NOT DETECT); Coronavirus 229E,HKU1,NL63,OC4 Not Detected (NOT DETECT); Human Metapneumovirus Not Detected (NOT DETECT); Human Rhinovirus/Enterovirus Not Detected (NOT DETECT); Influenza A Not Detected (NOT DETECT); Influenza A H1 Not Detected (NOT DETECT); Influenza A H1-2009 Not Detected (NOT DETECT); Influenza A H3 Not Detected (NOT DETECT); Influenza B Not Detected (NOT DETECT); Mycoplasma Pneumoniae Not Detected (NOT DETECT); Parainfluenza Virus Type 1 Not Detected (NOT DETECT); Parainfluenza Virus Type 2 Not Detected (NOT DETECT); Parainfluenza Virus Type 3 Not Detected (NOT DETECT); Parainfluenza Virus Type 4 Not Detected (NOT DETECT); Respiratory Syncytial Virus A Not Detected (NOT DETECT); Respiratory Syncytial Virus B Not Detected (NOT DETECT); SARS-COV-2 Not Detected (NOT DETECT)
--- NOTE | 2024-08-18 19:03 | P.NPUPN_ITS ---
Subjective NPU 2 Subjective: Patient presented today reporting that she is doing okay other than not feeling well. She is reporting that she is having chills and having what might be described as delirium with awakenings where she feels things might be crawling on her and feeling that she is picking at that. We discussed her having elevated temperature/fever and that we would obtain a hospitalist consult. We discussed the risks, benefits and alternatives of following the recommendations to identify the source of the fever, likely transfer to [facility] [place] to give her her best access to treatment and avoid spreading any infection if it is something other than a UTI or other contained infection and she understood and agreed to proceed as is documented in this note. Mental Status Exam 2 MSE Comments: Patient was alert and oriented to person, place, time, and situation. She was lying in bed and appeared in moderate distress. Her hygiene was poor. Her speech was normal in regards to rate, rhythm, and prosody. She had fair eye contact. There was evidence of mild psychomotor retardation. There was no evidence of any abnormal involuntary motor movements, tics, or tremors appreciated. Her mood was described as a little better. Her affect was restricted in range and mood congruent. Her thought process was linear, logical, and goal-directed. Her thought process revealed no suicidal ideation today. She denied any homicidal ideation. She denied any auditory or visual hallucinations. She did not appear to be responding internal stimuli. There is no evidence of delusional thinking. Her recent and remote memory appear grossly intact. Her insight is impaired. Her judgment is poor. Her impulse control appeared limited. Vitals/I&O/Wt Last Vital Signs Temp 98.5F 08/18/24 19:03 Pulse 77 08/18/24 19:03 Resp 15 08/18/24 19:03 BP 134/82 08/18/24 19:03 Pulse Ox 97 08/18/24 19:03 O2 Del Method Room Air 08/18/24 19:03 Data NPU 08/19/24 04:19 08/19/24 04:19 Micro: Microbiology 08/18/24 14:30 Gram Stain - Final Peritoneal Fluid 08/15/24 12:55 Gram Stain - Final Ascites Fluid Body Fluid Culture - Preliminary 08/18/24 14:20 Blood Culture - Preliminary Blood SPECIMEN COLLECTED 08/18/24 14:16 Blood Culture - Preliminary Blood SPECIMEN COLLECTED Microbiology 08/18/24 14:30 Peritoneal Fluid Gram Stain - Final 08/15/24 12:55 Ascites Fluid Gram Stain - Final 08/15/24 12:55 Ascites Fluid Body Fluid Culture - Preliminary 08/18/24 14:20 Blood Blood Culture - Preliminary SPECIMEN COLLECTED 08/18/24 14:16 Blood Blood Culture - Preliminary SPECIMEN COLLECTED A&P Assessment and plan (1) MDD (major depressive disorder), recurrent severe, without psychosis: (2) Generalized anxiety disorder: (3) Post-traumatic stress disorder, chronic: (4) Suicidal thoughts: (5) Methamphetamine use disorder, severe, in sustained remission: Plan 59-year-old female with hepatitis C and cirrhosis along with symptom suggestive of PTSD, major depressive disorder, generalized anxiety disorder along with a history of methamphetamine abuse in remission reporting suicidal ideation and pain with poor compliance with her medications. #1.? Engage patient in individual milieu and group therapy. #2?? Recommend sober living treatment at the highest level of care to which the patient is willing to commit #3??? Restart outpatient medications including Paxil 40mg daily and Hydroxyzine at night for sleep routinely #4?? TO-15 minute checks? #5?? Will attempt to gather collateral information #6 Medical referral regarding pain issues and pharmacotherapy given liver issues. #7 Obtain hospitalist consult with fevers spiking to 103. Will monitor recommendations and make changes as indicated. PDMP PDMP Reviewed: Not Reviewed Involuntary Hold Information 2 Hold Status: Date/Time Hold Expires: Vol Attestations NPU 2 Medical Necessity Statement*: Inpatient hospitalization is medically necessary and deemed to be?the clinically appropriate intervention ?at this time.? We will monitor/initiate medications and make changes as indicated.? The patient?s likely length of stay 1-2 days. Coding Level of Care Code Acute Code for Chg Fwd Diagnoses MDD (major depressive disorder), recurrent severe, without psychosis F33.2 Generalized anxiety disorder F41.1 Post-traumatic stress disorder, chronic F43.12 Suicidal thoughts R45.851 Methamphetamine use disorder, severe, in sustained remission F15.21
[2024-08-18 21:13] LABS: C.Diff PCR (Lab) NEGATIVE (Negative)
[2024-08-18] MEDS: hyDROXYzine 25 mg Capsule 100 MG PO (21:55)
[2024-08-19] MEDS: meropenem 1,000 mg SDV 1000 MG IVP (01:04)
[2024-08-19] MEDS: sodium chloride 0.9% 1,000 ML 75 ML IV ×2 (01:07→11:28)
[2024-08-19 04:44] LABS: Basophils % 0.4 %; Eosinophils # 0.1 10^3/uL (0.0-0.8); Eosinophils % 2.8 %; Hematocrit 38.8 % (36-47); Lymphocytes # 0.5 10^3/uL (0.8-4.8); Lymphocytes % 9.3 %; Mean Corpuscular HGB Conc 30.4 g/dL (30-55); Mean Corpuscular Hemoglobin 27.7 pg (27-33); Mean Corpuscular Volume 91.1 fl (85-98); Mean Platelet Volume 11.9 fL (7.4-10.4); Monocytes # 0.8 10^3/uL (0.2-0.9); Monocytes % 16.6 %; Neutrophils # 3.49 10^3/uL (1.8-7.7); Neutrophils % 70.5 %; Nucleated Red Blood Cells % 0 %; Platelet Count 57 10^3/cmm (157-399); Red Blood Count 4.26 10^6/uL (3.85-5.65); Red Cell Distribution Width 13.6 % (12.1-15.1); White Blood Count 4.95 10^3/uL (3.29-11.43)
[2024-08-19 04:46] VITALS: BP 116/76; PULSE 72; RESP 15; TEMP 36.8; O2SAT 97
[2024-08-19 05:02] LABS: Albumin Level 2.5 g/dL (3.5-5.2); Alkaline Phosphatase 142 U/L (35-105); Blood Urea Nitrogen 28 mg/dL (6-20); Calcium 7.8 mg/dL (8.5-10.5); Carbon Dioxide 21 mmol/L (22-29); Chloride 101 mmol/L (98-107); Creatinine Clr Calc Pharmacy 52.1717; Globulin 2.8 g/dL (1.3-4.6); Glomerular Filtration Rate 42.2 mL/min (90-130); Glucose 145 mg/dL (65-115); Osmolality Calculated 282 mOsm/kg (285-295); Sodium 132 mmol/L (136-145); Total Bilirubin 0.9 mg/dL (0.15-1.2); Total Protein 5.3 g/dL (6.6-8.7)
[2024-08-19 05:17] LABS: Anion Gap 13.9 (5-19); Potassium 3.9 mmol/L (3.5-5.1)
[2024-08-19 05:18] LABS: Alanine Aminotransferase 20 U/L (0-33); Aspartate Amino Transferase 47 U/L (0-32)
[2024-08-19 07:50] VITALS: BP 131/76; PULSE 68; RESP 17; TEMP 36.7; O2SAT 93
[2024-08-19] MEDS: rifaximin 200 mg Tablet 600 MG PO ×2 (08:30→17:05)
[2024-08-19] MEDS: pantoprazole DR 40 mg Tablet PO (08:30)
[2024-08-19] MEDS: nystatin 100,000 unit/mL UDC 5 mL 200000 UNIT PO ×4 (08:30→20:18)
[2024-08-19] MEDS: pregabalin 75 mg Capsule PO (08:31)
[2024-08-19] MEDS: PARoxetine 20 mg Tablet 40 MG PO (08:31)
[2024-08-19] MEDS: HYDROcodone-acetaminophen 5-325 mg Tablet 1 TAB PO ×2 (11:32→20:24)
[2024-08-19] MEDS: vancomycin 1,250 MG/250 ML PIGGYBACK 166.67 MG IV (11:32)
[2024-08-19 11:56] VITALS: BP 122/75; PULSE 71; RESP 16; TEMP 36.8; O2SAT 96
--- NOTE | 2024-08-19 13:05 | P.PN_ITS ---
Subjective 2 Subjective: Noncompliance overnight. Patient has remained hemodynamically stable and afebrile in last 24 hours. Seen with sitter at bedside. Patient denies any new complaints. Vitals/I&O/Wt Last Vital Signs Temp 98.2 F 08/19/24 11:56 Pulse 71 08/19/24 11:56 Resp 16 08/19/24 11:56 BP 122/75 08/19/24 11:56 Pulse Ox 96 08/19/24 11:56 O2 Del Method Room Air 08/19/24 11:56 08/18/24 08/19/24 08/19/24 22:59 06:59 14:59 Intake Total 490 / 730 1132.5 / 1862.5 600 / 600 Balance 490 / 730 1132.5 / 1862.5 600 / 600 Physical Exam 2 Narrative: General: No acute distress, AO x3, complaining of pain all over her body, able to ambulate HEENT: PERRLA, pupils bilaterally equal and reactive Chest: Normal vesicular breath sounds, no added sounds, equal good air entry bilaterally CVS: S1-S2 regular, no murmurs, no tachycardia, no gallops, no rubs Abdomen: Soft, distended, guarding present, no rebound tenderness, generalized tender, no organomegaly, bowel sounds present Neuro: No focal deficits, no facial deformity, AO x3, power 5/5 in all limbs Data 08/19/24 04:19 08/19/24 04:19 Micro: Microbiology 08/17/24 17:00 Urine Culture - Preliminary Urine,Clean Catch Strep species, gamma-hemolytic 08/18/24 14:30 Gram Stain - Final Peritoneal Fluid 08/15/24 12:55 Gram Stain - Final Ascites Fluid Body Fluid Culture - Preliminary 08/18/24 14:20 Blood Culture - Preliminary Blood SPECIMEN COLLECTED 08/18/24 14:16 Blood Culture - Preliminary Blood SPECIMEN COLLECTED A&P Assessment and plan (1) Fever: Cannot rule out sepsis. Patient admitted with suicidal ideation. Complaining of generalized body pains. Having fever up to 103 for last 24 hours. Follow-up blood cultures. Repeat blood culture today. Follow-up fluid studies and culture from 08/14. Does have concern for UTI as per UA. Follow-up urine culture. Past urine cultures positive for Enterococcus. Started on linezolid yesterday. For now transition to IV vancomycin. Add IV meropenem as per creatinine clearance. Will repeat diagnostic paracentesis to rule out SBP. Check respiratory viral panel. (2) CODY (acute kidney injury): Creatinine up to 1.5 for now. Cannot rule out hepatorenal syndrome. For now start on gentle IV hydration with NS at 75 cc/h. Blood pressure stable. Medical reconciliation done for nephrotoxic drugs. Monitor BMP daily for now. (3) Pain: Complains of generalized pain all over the body. Aggravated by minimal movement. More so in back. Most likely neuropathy pain given liver cirrhosis versus psychosomatic. Will plan for thoracolumbar x-ray. Depending on findings can plan for further imaging. Check vitamin B12, thiamine, folate levels. Start on Lyrica 75 mg twice daily. [place] 5 mg every 8 hours as needed. Not to exceed 2 g of Tylenol. Patient is allergic to NSAIDs and tramadol. Asking for morphine. (4) Cirrhosis: Insetting of hepatitis C. 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 Negative HIV. Appreciate hepatitis panel. Continue with home dose of nadolol, rifaximin. Elevated ammonia levels but states she has been having 2-3 bowel movements daily. Change lactulose to as needed (5) Hepatitis C: Treated. Appreciate viral load. (6) Abdominal ascites: Gets weekly paracentesis. Last paracentesis on 08/15. Appreciate fluid studies. Less likely SBP. Will ask for fluid cultures. Repeat diagnostic paracentesis today. (7) Serum ammonia increased: As above. (8) Thrush, oral: Could be in setting of liver cirrhosis. Continue with nystatin swish and swallow. (9) S/P abdominal paracentesis: (10) MDD (major depressive disorder), recurrent severe, without psychosis: (11) Suicidal thoughts: As per primary team. Sitter once at the [facility] floor. (12) Thrombocytopenia: Chronic. In setting of liver cirrhosis. Continue to monitor. Plan History of meth abuse. Full code Regular diet Protonix for PUD prophylaxis Thank you for involving us in care of Ms. Ernandez. Please call back with any questions. Plan for the day: Ascites fluid studies negative for concern for SBP. Follow-up cultures. Follow-up blood culture and urine culture. History of Enterococcus UTI. Currently growing strep. For now continue with IV vancomycin as per culture history along with IV meropenem. Depending on culture sensitivities in next 24 hours we will plan to de-escalate antibiotics. Continue with IV fluids at current dose rate for now. Renal function is improving. Creatinine down to 1.3. Continue to monitor CMP daily. Continue with nystatin swish and swallow for oral thrush along with Magic mouthwash. Continue rifaximin 600 twice daily along with lactulose as needed. Further treatment for suicidal ideation as per primary team. If can transition to oral antibiotics as per culture sensitivities for urine and blood cultures remain negative can plan to transition back to Neuropsych Unit in next 24 to 48 hours. PDMP PDMP Reviewed: Last Reviewed 08/16/24 15:10 by Keaton Farnsworth MD Attestations 2 Medical Necessity Statement*: Requires hospitalization for management of alcohol episode with concerns for UTI in a patient originally admitted for suicidal ideation to Neuropsych Unit with past history of hepatitis C induced liver cirrhosis Diagnoses Fever R50.9 CODY (acute kidney injury) N17.9 Pain R52 Cirrhosis of liver without ascites, unspecified hepatic cirrhosis type K74.60 Hepatic cirrhosis type: unspecified hepatic cirrhosis Ascites presence: without ascites Hepatitis C B19.20 Abdominal ascites R18.8 Serum ammonia increased E72.20 Thrush, oral B37.0 S/P abdominal paracentesis Z98.890 MDD (major depressive disorder), recurrent severe, without psychosis F33.2 Suicidal thoughts R45.851 Thrombocytopenia D69.6
[2024-08-19] MEDS: lidocaine 2% viscous 15 ML, diphenhydrAMINE oral liq 37.5 MG, aluminum-mag hydrox-simet... MUCOUS MEM (13:16)
[2024-08-19 15:30] VITALS: BP 129/75; PULSE 79; RESP 20; TEMP 36.8; O2SAT 95
[2024-08-19] MEDS: pregabalin 50 mg Capsule PO (17:05)
[2024-08-19] MEDS: hyDROXYzine 25 mg Capsule 100 MG PO (20:18)
[2024-08-19 20:26] VITALS: BP 117/62; PULSE 72; RESP 17; TEMP 37; O2SAT 97
--- NOTE | 2024-08-19 22:01 | P.NPUPN_ITS ---
Subjective NPU 2 Subjective: Patient presented today reporting that she is doing all right. She continued to receive IV antibiotics and reports that she is feeling better. We discussed the likelihood of return to the neuropsychiatric unit at least for 1 day prior to discharge. She reports that she is feeling that overall she is getting better each day outside of her physical medical complaints. She denied any side effects of the medication. Mental Status Exam 2 MSE Comments: Patient was alert and oriented to person, place, time, and situation. She was lying in bed and appeared in moderate distress. Her hygiene was poor. Her speech was normal in regards to rate, rhythm, and prosody. She had fair eye contact. There was evidence of mild psychomotor retardation. There was no evidence of any abnormal involuntary motor movements, tics, or tremors appreciated. Her mood was described as a little better. Her affect was restricted in range and mood congruent. Her thought process was linear, logical, and goal-directed. Her thought process revealed no suicidal ideation today. She denied any homicidal ideation. She denied any auditory or visual hallucinations. She did not appear to be responding internal stimuli. There is no evidence of delusional thinking. Her recent and remote memory appear grossly intact. Her insight is impaired. Her judgment is poor. Her impulse control appeared limited. Vitals/I&O/Wt Last Vital Signs Temp 98.6 F 08/19/24 20:26 Pulse 72 08/19/24 20:26 Resp 17 08/19/24 20:26 BP 117/62 08/19/24 20:26 Pulse Ox 97 08/19/24 20:26 O2 Del Method Room Air 08/19/24 15:30 08/19/24 08/19/24 08/19/24 06:59 14:59 22:59 Intake Total 1132.5 / 1862.5 850 / 850 240 / 1090 Output Total 100 / 100 Balance 1132.5 / 1862.5 850 / 850 140 / 990 Data NPU 08/19/24 04:19 08/19/24 04:19 Micro: Microbiology 08/18/24 14:30 Mycobacterial Smear - Preliminary Body Fluids - Peritoneal 08/18/24 14:30 Gram Stain - Final Peritoneal Fluid Anaerobic Culture - Preliminary Body Fluid Culture - Preliminary 08/15/24 12:55 Gram Stain - Final Ascites Fluid Body Fluid Culture - Final 08/18/24 14:20 Blood Culture - Preliminary Blood NEGATIVE TO DATE 08/18/24 14:16 Blood Culture - Preliminary Blood NEGATIVE TO DATE 08/17/24 17:00 Urine Culture - Preliminary Urine,Clean Catch Strep species, gamma-hemolytic Microbiology 08/18/24 14:30 Body Fluids - Peritoneal Mycobacterial Smear - Preliminary 08/18/24 14:30 Peritoneal Fluid Gram Stain - Final 08/18/24 14:30 Peritoneal Fluid Anaerobic Culture - Preliminary 08/18/24 14:30 Peritoneal Fluid Body Fluid Culture - Preliminary 08/15/24 12:55 Ascites Fluid Gram Stain - Final 08/15/24 12:55 Ascites Fluid Body Fluid Culture - Final 08/18/24 14:20 Blood Blood Culture - Preliminary NEGATIVE TO DATE 08/18/24 14:16 Blood Blood Culture - Preliminary NEGATIVE TO DATE 08/17/24 17:00 Urine,Clean Catch Urine Culture - Preliminary Strep species, gamma-hemolytic A&P Assessment and plan (1) MDD (major depressive disorder), recurrent severe, without psychosis: (2) Generalized anxiety disorder: (3) Post-traumatic stress disorder, chronic: (4) Suicidal thoughts: (5) Methamphetamine use disorder, severe, in sustained remission: Plan 59-year-old female with hepatitis C and cirrhosis along with symptom suggestive of PTSD, major depressive disorder, generalized anxiety disorder along with a history of methamphetamine abuse in remission reporting suicidal ideation and pain with poor compliance with her medications. #1.? Engage patient in individual milieu and group therapy. #2?? Recommend sober living treatment at the highest level of care to which the patient is willing to commit #3??? Restart outpatient medications including Paxil 40mg daily and Hydroxyzine at night for sleep routinely #4?? TO-15 minute checks? #5?? Will attempt to gather collateral information #6 Medical referral regarding pain issues and pharmacotherapy given liver issues. #7 Obtain hospitalist consult with fevers spiking to 103. Will monitor recommendations and make changes as indicated. Patient was transferred to [facility] and will likely be returned back to neuropsychiatric unit if can switch to oral antibiotics. PDMP PDMP Reviewed: Not Reviewed Involuntary Hold Information 2 Hold Status: Date/Time Hold Expires: Vol Attestations NPU 2 Medical Necessity Statement*: Inpatient hospitalization is medically necessary and the clinically appropriate intervention?at this time.? We will monitor/initiate medications and make changes as indicated.? The patient?s likely length of stay 1-3 days. Coding Level of Care Code Acute Code for Chg Fwd Diagnoses MDD (major depressive disorder), recurrent severe, without psychosis F33.2 Generalized anxiety disorder F41.1 Post-traumatic stress disorder, chronic F43.12 Suicidal thoughts R45.851 Methamphetamine use disorder, severe, in sustained remission F15.21
[2024-08-20] VITALS (7 sets, daily range): BP systolic 115–124; BP diastolic 72–76; PULSE 64–79; RESP 15–17; TEMP 36.4–36.8; O2SAT 95–98
[2024-08-20] MEDS: meropenem 1,000 mg SDV 1000 MG IVP ×2 (00:32→12:17)
[2024-08-20 07:42] LABS: Alanine Aminotransferase 17 U/L (0-33); Albumin Level 2.3 g/dL (3.5-5.2); Alkaline Phosphatase 111 U/L (35-105); Anion Gap 13.8 (5-19); Aspartate Amino Transferase 31 U/L (0-32); Blood Urea Nitrogen 23 mg/dL (6-20); Calcium 7.5 mg/dL (8.5-10.5); Carbon Dioxide 22 mmol/L (22-29); Chloride 105 mmol/L (98-107); Globulin 2.4 g/dL (1.3-4.6); Glomerular Filtration Rate 51.2 mL/min (90-130); Glucose 93 mg/dL (65-115); Osmolality Calculated 287 mOsm/kg (285-295); Potassium 3.8 mmol/L (3.5-5.1); Sodium 137 mmol/L (136-145); Total Bilirubin 0.8 mg/dL (0.15-1.2); Total Protein 4.7 g/dL (6.6-8.7)
[2024-08-20 07:49] LABS: Creatinine Clr Calc Pharmacy 61.6575
[2024-08-20 08:59] LABS: Basophils % 0.8 %; Eosinophils # 0.2 10^3/uL (0.0-0.8); Eosinophils % 4.4 %; Hematocrit 37.5 % (36-47); Lymphocytes # 0.6 10^3/uL (0.8-4.8); Lymphocytes % 14.2 %; Mean Corpuscular HGB Conc 31.2 g/dL (30-55); Mean Corpuscular Hemoglobin 27.5 pg (27-33); Mean Platelet Volume 10.8 fL (7.4-10.4); Monocytes # 0.6 10^3/uL (0.2-0.9); Monocytes % 14.2 %; Neutrophils # 2.55 10^3/uL (1.8-7.7); Neutrophils % 66.1 %; Nucleated Red Blood Cells % 0 %; Platelet Count 68 10^3/cmm (157-399); Red Blood Count 4.26 10^6/uL (3.85-5.65); Red Cell Distribution Width 13.8 % (12.1-15.1); White Blood Count 3.86 10^3/uL (3.29-11.43)
[2024-08-20] MEDS: rifaximin 200 mg Tablet 600 MG PO ×2 (09:09→17:13)
[2024-08-20] MEDS: PARoxetine 20 mg Tablet 40 MG PO (09:09)
[2024-08-20] MEDS: pantoprazole DR 40 mg Tablet PO (09:09)
[2024-08-20] MEDS: nystatin 100,000 unit/mL UDC 5 mL 200000 UNIT PO ×4 (09:09→20:21)
[2024-08-20] MEDS: pregabalin 50 mg Capsule PO ×2 (09:09→17:13)
[2024-08-20] MEDS: lanolin oint 7 gm 1 APPLIC TOPICAL (09:12)
[2024-08-20] MEDS: sodium chloride 0.9% 1,000 ML 75 ML IV (09:51)
[2024-08-20] MEDS: HYDROcodone-acetaminophen 5-325 mg Tablet 1 TAB PO ×2 (09:51→20:23)
[2024-08-20] MEDS: blistex lip oint 7 gm Tube 1 APPLIC TOPICAL (09:52)
[2024-08-20] MEDS: lidocaine 2% viscous 15 ML, diphenhydrAMINE oral liq 37.5 MG, aluminum-mag hydrox-simet... MUCOUS MEM (09:56)
[2024-08-20] MEDS: vancomycin 1,250 MG/250 ML PIGGYBACK 166.7 MG IV (12:17)
--- NOTE | 2024-08-20 12:30 | PM.PN ---
Subjective Subjective: No acute events overnight. Complaining of back pain. Has remained hemodynamically stable and afebrile. Vitals/I&O/Wt Last Vital Signs Temp 97.5 F L 08/20/24 11:13 Pulse 71 08/20/24 11:13 Resp 17 08/20/24 11:13 BP 120/74 08/20/24 11:13 Pulse Ox 96 08/20/24 11:13 O2 Del Method Room Air 08/20/24 11:13 08/19/24 08/20/24 08/20/24 22:59 06:59 14:59 Intake Total 240 / 1090 1000 / 2090 360 / 360 Output Total 100 / 100 300 / 400 Balance 140 / 990 700 / 1690 360 / 360 Weight last 48 hrs Weight 87.543 kg Physical Exam Narrative: General: No acute distress, AO x3, complaining of pain all over her body, able to ambulate HEENT: PERRLA, pupils bilaterally equal and reactive Chest: Normal vesicular breath sounds, no added sounds, equal good air entry bilaterally CVS: S1-S2 regular, no murmurs, no tachycardia, no gallops, no rubs Abdomen: Soft, distended, guarding present, no rebound tenderness, generalized tender, no organomegaly, bowel sounds present Neuro: No focal deficits, no facial deformity, AO x3, power 5/5 in all limbs Data 08/20/24 08:30 08/20/24 07:14 Micro: Microbiology 08/18/24 14:30 Mycobacterial Smear - Preliminary Body Fluids - Peritoneal 08/18/24 14:30 Gram Stain - Final Peritoneal Fluid Anaerobic Culture - Preliminary Body Fluid Culture - Preliminary 08/15/24 12:55 Gram Stain - Final Ascites Fluid Body Fluid Culture - Final 08/18/24 14:20 Blood Culture - Preliminary Blood NEGATIVE TO DATE 08/18/24 14:16 Blood Culture - Preliminary Blood NEGATIVE TO DATE 08/17/24 17:00 Urine Culture - Preliminary Urine,Clean Catch Strep species, gamma-hemolytic A&P Assessment and plan (1) Fever: Cannot rule out sepsis. Patient admitted with suicidal ideation. Complaining of generalized body pains. Having fever up to 103 for last 24 hours. Follow-up blood cultures. Repeat blood culture today. Follow-up fluid studies and culture from 08/14. Does have concern for UTI as per UA. Follow-up urine culture. Past urine cultures positive for Enterococcus. Started on linezolid yesterday. For now transition to IV vancomycin. Add IV meropenem as per creatinine clearance. Will repeat diagnostic paracentesis to rule out SBP. Check respiratory viral panel. (2) CODY (acute kidney injury): Creatinine up to 1.5 for now. Cannot rule out hepatorenal syndrome. For now start on gentle IV hydration with NS at 75 cc/h. Blood pressure stable. Medical reconciliation done for nephrotoxic drugs. Monitor BMP daily for now. (3) Pain: Complains of generalized pain all over the body. Aggravated by minimal movement. More so in back. Most likely neuropathy pain given liver cirrhosis versus psychosomatic. Will plan for thoracolumbar x-ray. Depending on findings can plan for further imaging. Check vitamin B12, thiamine, folate levels. Start on Lyrica 75 mg twice daily. [place] 5 mg every 8 hours as needed. Not to exceed 2 g of Tylenol. Patient is allergic to NSAIDs and tramadol. Asking for morphine. (4) Cirrhosis: Insetting of hepatitis C. 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 Negative HIV. Appreciate hepatitis panel. Continue with home dose of nadolol, rifaximin. Elevated ammonia levels but states she has been having 2-3 bowel movements daily. Change lactulose to as needed (5) Hepatitis C: Treated. Appreciate viral load. (6) Abdominal ascites: Gets weekly paracentesis. Last paracentesis on 08/15. Appreciate fluid studies. Less likely SBP. Will ask for fluid cultures. Repeat diagnostic paracentesis today. (7) Serum ammonia increased: As above. (8) Thrush, oral: Could be in setting of liver cirrhosis. Continue with nystatin swish and swallow. (9) S/P abdominal paracentesis: (10) MDD (major depressive disorder), recurrent severe, without psychosis: (11) Suicidal thoughts: As per primary team. Sitter once at the [facility] floor. (12) Thrombocytopenia: Chronic. In setting of liver cirrhosis. Continue to monitor. Plan History of meth abuse. Full code Regular diet Protonix for PUD prophylaxis Thank you for involving us in care of Ms. Ernandez. Please call back with any questions. Plan for the day: Follow-up body fluid and urine culture along with blood culture results. So far urine culture growing strep gamma hemolytic. History of Enterococcus UTI. Continue with current dose of vancomycin and meropenem. If blood cultures and fluid cultures remain negative by tomorrow we will de-escalate antibiotics as per urine culture sensitivities. Creatinine improved to 1.1. Stop IV fluids. Continue with nystatin swish and swallow along with Magic mouthwash. Continue with current dose of rifaximin and lactulose as needed. Further treatment for suicidal ideation as per primary team. If can transition to oral antibiotics as per culture sensitivities for urine and blood cultures remain negative can plan to transition back to Neuropsych Unit in next 24 hrs. PDMP PDMP Reviewed: Last Reviewed 08/16/24 15:10 by Keaton Farnsworth MD Attestations Medical Necessity Statement*: Requires further hospitalization for management of febrile episode in setting of UTI in a patient admitted to Neuropsych Unit primarily for suicidal ideation Diagnoses Fever R50.9 CODY (acute kidney injury) N17.9 Pain R52 Cirrhosis of liver without ascites, unspecified hepatic cirrhosis type K74.60 Hepatic cirrhosis type: unspecified hepatic cirrhosis Ascites presence: without ascites Hepatitis C B19.20 Abdominal ascites R18.8 Serum ammonia increased E72.20 Thrush, oral B37.0 S/P abdominal paracentesis Z98.890 MDD (major depressive disorder), recurrent severe, without psychosis F33.2 Suicidal thoughts R45.851 Thrombocytopenia D69.6
--- NOTE | 2024-08-20 13:36 | PC.NURSE ---
Transfer to NPU pending room availability.
--- NOTE | 2024-08-20 15:59 | P.NPUPN_ITS ---
Subjective NPU 2 Subjective: Patient presented today reporting that she is doing okay but still having flank pain and perceptual disturbances that seem to be consistent with delirium. She reports that she is not feeling depressed but she does feel kind of crappy but she denies any thoughts to hurt herself or hurt anyone else. She denied any side effects to the medication and we discussed that this news writer would talk to the hospitalist about her complaints and make sure he is aware. We discussed her transferring back to the neuropsychiatric unit even if very briefly prior to considering discharge. Mental Status Exam 2 MSE Comments: Patient was alert and oriented to person, place, time, and situation. She was lying in bed and appeared in moderate distress. Her hygiene was poor. Her speech was normal in regards to rate, rhythm, and prosody. She had fair eye contact. There was evidence of mild psychomotor retardation. There was no evidence of any abnormal involuntary motor movements, tics, or tremors appreciated. Her mood was described as a little better. Her affect was restricted in range and mood congruent. Her thought process was linear, logical, and goal-directed. Her thought process revealed no suicidal ideation today. She denied any homicidal ideation. She denied any auditory or visual hallucinations. She did not appear to be responding internal stimuli. There is no evidence of delusional thinking. Her recent and remote memory appear grossly intact. Her insight is impaired. Her judgment is poor. Her impulse control appeared limited. Vitals/I&O/Wt Last Vital Signs Temp 97.9 F 08/21/24 04:00 Pulse 71 08/21/24 04:00 Resp 12 08/21/24 04:00 BP 121/73 08/21/24 04:00 Pulse Ox 95 08/21/24 04:00 O2 Del Method Room Air 08/21/24 04:00 08/20/24 14:59 Intake Total 845 / 845 Output Total Balance 845 / 845 Weight last 48 hrs Weight 88.36 kg Weight 87.543 kg Data NPU 08/21/24 03:49 08/21/24 03:49 Micro: Microbiology 08/18/24 14:30 Gram Stain - Final Peritoneal Fluid Anaerobic Culture - Preliminary Body Fluid Culture - Preliminary 08/17/24 17:00 Urine Culture - Final Urine,Clean Catch Enterococcus faecalis Microbiology 08/18/24 14:30 Peritoneal Fluid Gram Stain - Final 08/18/24 14:30 Peritoneal Fluid Anaerobic Culture - Preliminary 08/18/24 14:30 Peritoneal Fluid Body Fluid Culture - Preliminary 08/17/24 17:00 Urine,Clean Catch Urine Culture - Final Enterococcus faecalis A&P Assessment and plan (1) MDD (major depressive disorder), recurrent severe, without psychosis: (2) Generalized anxiety disorder: (3) Post-traumatic stress disorder, chronic: (4) Suicidal thoughts: (5) Methamphetamine use disorder, severe, in sustained remission: Plan 59-year-old female with hepatitis C and cirrhosis along with symptom suggestive of PTSD, major depressive disorder, generalized anxiety disorder along with a history of methamphetamine abuse in remission reporting suicidal ideation and pain with poor compliance with her medications. #1.? Engage patient in individual milieu and group therapy. #2?? Recommend sober living treatment at the highest level of care to which the patient is willing to commit #3??? Restart outpatient medications including Paxil 40mg daily and Hydroxyzine at night for sleep routinely #4?? TO-15 minute checks? #5?? Will attempt to gather collateral information #6 Medical referral regarding pain issues and pharmacotherapy given liver issues. #7 Obtain hospitalist consult with fevers spiking to 103. Will monitor recommendations and make changes as indicated. Patient was transferred to [facility] and will likely be returned back to neuropsychiatric unit if can switch to oral antibiotics.Will talk to hospitalist about her complaints of flank pain and possible delirium. PDMP PDMP Reviewed: Not Reviewed Involuntary Hold Information 2 Hold Status: Date/Time Hold Expires: Vol Attestations NPU 2 Medical Necessity Statement*: Inpatient hospitalization is medically necessary and the clinically appropriate intervention?at this time.? We will monitor/initiate medications and make changes as indicated.? The patient?s likely length of stay 1-3 days. Coding Level of Care Code Acute Code for Chg Fwd Diagnoses MDD (major depressive disorder), recurrent severe, without psychosis F33.2 Generalized anxiety disorder F41.1 Post-traumatic stress disorder, chronic F43.12 Suicidal thoughts R45.851 Methamphetamine use disorder, severe, in sustained remission F15.21
[2024-08-20] MEDS: amoxicillin-clav 875-125 mg Tablet 1 TAB PO (17:13)
[2024-08-20] MEDS: hyDROXYzine 25 mg Capsule 100 MG PO (20:21)
[2024-08-21 04:00] VITALS: BP 143/78; PULSE 72; RESP 18; TEMP 36.4; O2SAT 97
[2024-08-21 04:11] LABS: Basophils % 0.8 %; Eosinophils # 0.2 10^3/uL (0.0-0.8); Eosinophils % 5.4 %; Hematocrit 35.8 % (36-47); Lymphocytes # 0.6 10^3/uL (0.8-4.8); Lymphocytes % 16.4 %; Mean Corpuscular HGB Conc 30.7 g/dL (30-55); Mean Corpuscular Hemoglobin 28.1 pg (27-33); Mean Corpuscular Volume 91.6 fl (85-98); Mean Platelet Volume 12.4 fL (7.4-10.4); Monocytes # 0.7 10^3/uL (0.2-0.9); Monocytes % 17.8 %; Neutrophils # 2.19 10^3/uL (1.8-7.7); Neutrophils % 59.1 %; Nucleated Red Blood Cells % 0 %; Platelet Count 76 10^3/cmm (157-399); Red Blood Count 3.91 10^6/uL (3.85-5.65); Red Cell Distribution Width 14.1 % (12.1-15.1); White Blood Count 3.71 10^3/uL (3.29-11.43)
[2024-08-21 04:43] LABS: Alanine Aminotransferase 16 U/L (0-33); Albumin Level 2.2 g/dL (3.5-5.2); Alkaline Phosphatase 121 U/L (35-105); Aspartate Amino Transferase 35 U/L (0-32); Blood Urea Nitrogen 20 mg/dL (6-20); Calcium 7.7 mg/dL (8.5-10.5); Carbon Dioxide 23 mmol/L (22-29); Chloride 105 mmol/L (98-107); Globulin 2.6 g/dL (1.3-4.6); Glomerular Filtration Rate 64.5 mL/min (90-130); Glucose 96 mg/dL (65-115); Osmolality Calculated 284 mOsm/kg (285-295); Sodium 136 mmol/L (136-145); Total Protein 4.8 g/dL (6.6-8.7)
[2024-08-21 07:36] VITALS: BP 132/74; PULSE 65; RESP 18; TEMP 36.7; O2SAT 97
[2024-08-21] MEDS: lidocaine 2% viscous 15 ML, diphenhydrAMINE oral liq 37.5 MG, aluminum-mag hydrox-simet... MUCOUS MEM (08:06)
[2024-08-21] MEDS: pantoprazole DR 40 mg Tablet PO (08:07)
[2024-08-21] MEDS: nystatin 100,000 unit/mL UDC 5 mL 200000 UNIT PO ×2 (08:07→13:15)
[2024-08-21] MEDS: HYDROcodone-acetaminophen 5-325 mg Tablet 1 TAB PO (08:07)
[2024-08-21] MEDS: rifaximin 200 mg Tablet 600 MG PO (08:07)
[2024-08-21] MEDS: PARoxetine 20 mg Tablet 40 MG PO (08:08)
[2024-08-21] MEDS: amoxicillin-clav 875-125 mg Tablet 1 TAB PO (08:08)
--- NOTE | 2024-08-21 09:16 | PM.PN ---
Subjective Subjective: No acute events overnight. Has remained hemodynamically stable and afebrile. Complaining of mild back pain. Having 2-3 soft bowel movements per day. Vitals/I&O/Wt Last Vital Signs Temp 98.1 F 08/21/24 07:36 Pulse 65 08/21/24 07:36 Resp 18 08/21/24 07:36 BP 132/74 08/21/24 07:36 Pulse Ox 97 08/21/24 07:36 O2 Del Method Room Air 08/21/24 07:36 08/20/24 08/21/24 08/21/24 22:59 06:59 14:59 Intake Total 120 / 965 480 / 1445 480 / 480 Output Total 100 / 100 400 / 500 Balance 20 / 865 80 / 945 480 / 480 Weight last 48 hrs Weight 88.36 kg Weight 87.543 kg Physical Exam Narrative: General: No acute distress, AO x3, HEENT: PERRLA, pupils bilaterally equal and reactive Chest: Normal vesicular breath sounds, no added sounds, equal good air entry bilaterally CVS: S1-S2 regular, no murmurs, no tachycardia, no gallops, no rubs Abdomen: Soft, distended, no rebound tenderness, generalized tender, no organomegaly, bowel sounds present Neuro: No focal deficits, no facial deformity, AO x3, power 5/5 in all limbs Data 08/21/24 03:49 08/21/24 03:49 Micro: Microbiology 08/18/24 14:30 Gram Stain - Final Peritoneal Fluid Anaerobic Culture - Preliminary Body Fluid Culture - Preliminary 08/17/24 17:00 Urine Culture - Final Urine,Clean Catch Enterococcus faecalis A&P Assessment and plan (1) Fever: Afebrile for last 72 hours. Cannot rule out sepsis. Patient admitted with suicidal ideation. Complaining of generalized body pains. Blood cultures so far negative. Fluid studies and culture so far negative. Urine culture positive for Enterococcus. Respiratory viral panel negative. Continue with IV vancomycin for now. Can transition to oral Augmentin for overall 7-day course twice daily once patient is back to Neuropsych Unit. (2) Enterococcus UTI: (3) CODY (acute kidney injury): Resolved. Creatinine down to 0.9. Hide of fluids for last 24 hours. Continue with oral hydration. Hold off on Lasix for now. Repeat BMP every 48 hours for now. (4) Pain: Complains of generalized pain all over the body. Aggravated by minimal movement. More so in back. Most likely neuropathy pain given liver cirrhosis versus psychosomatic. Lumbar x-ray shows multilevel degenerative changes. Appreciate vitamin B12, thiamine, folate levels. Continue Lyrica 50 mg oral daily, [place] 5 mg every 8 hours as needed. Not to exceed 2 g of Tylenol. Patient is allergic to NSAIDs and tramadol. Asking for morphine. (5) Cirrhosis: Insetting of hepatitis C. Follows up with distribution designer at [facility]. Negative HIV. Appreciate hepatitis panel. Continue with home dose of nadolol, rifaximin. Elevated ammonia levels but states she has been having 2-3 bowel movements daily. Change lactulose to as needed (6) Hepatitis C: Treated. Appreciate viral load. (7) Abdominal ascites: Gets weekly paracentesis. Last paracentesis on 08/15. Appreciate fluid studies. Less likely SBP. Repeat diagnostic paracentesis today. (8) Serum ammonia increased: As above. (9) Thrush, oral: Could be in setting of liver cirrhosis. Continue with nystatin swish and swallow. (10) S/P abdominal paracentesis: (11) MDD (major depressive disorder), recurrent severe, without psychosis: (12) Suicidal thoughts: As per primary team. Sitter once at the MedSur floor. (13) Thrombocytopenia: Chronic. In setting of liver cirrhosis. Continue to monitor. Plan History of meth abuse. Full code Regular diet Protonix for PUD prophylaxis Thank you for involving us in care of Ms. Ernandez. Please call back with any questions. Patient safe to be transferred back to Neuropsych Unit. Will continue to follow. PDMP PDMP Reviewed: Last Reviewed 08/16/24 15:10 by Keaton Farnsworth MD Attestations Medical Necessity Statement*: As per primary team. Getting medications for UTI. Diagnoses Fever R50.9 Enterococcus UTI N39.0; B95.2 CODY (acute kidney injury) N17.9 Pain R52 Cirrhosis of liver without ascites, unspecified hepatic cirrhosis type K74.60 Hepatic cirrhosis type: unspecified hepatic cirrhosis Ascites presence: without ascites Hepatitis C B19.20 Abdominal ascites R18.8 Serum ammonia increased E72.20 Thrush, oral B37.0 S/P abdominal paracentesis Z98.890 MDD (major depressive disorder), recurrent severe, without psychosis F33.2 Suicidal thoughts R45.851 Thrombocytopenia D69.6
[2024-08-21 11:30] VITALS: BP 137/79; PULSE 69; RESP 19; TEMP 36.6; O2SAT 96
[2024-08-21 12:50] LABS: Vancomycin Trough 10.2 ug/mL (10-15)
[2024-08-21] MEDS: vancomycin 1,250 MG/250 ML PIGGYBACK 166.7 MG IV (13:15)
--- NOTE | 2024-08-21 14:08 | P.NPUDS_ITS ---
Diagnoses at Discharge Discharge Diagnosis (1) Fever: Status: Acute (2) Enterococcus UTI: Status: Acute (3) CODY (acute kidney injury): Status: Acute (4) Pain: Status: Acute (5) Cirrhosis: Status: Acute Qualifiers: Ascites presence: without ascites Hepatic cirrhosis type: unspecified hepatic cirrhosis Qualified Code(s): K74.60 - Unspecified cirrhosis of liver (6) Hepatitis C: Status: Acute (7) Abdominal ascites: Status: Acute (8) Serum ammonia increased: Status: Acute (9) Thrush, oral: Status: Acute (10) S/P abdominal paracentesis: Status: Acute (11) MDD (major depressive disorder), recurrent severe, without psychosis: Status: Acute (12) Suicidal thoughts: Status: Acute (13) Thrombocytopenia: Status: Acute Reason for Visit Reason for Visit: retaining fluid Involuntary Hold Information Hold Status: Date/Time Hold Expires: Vol Discharge Data Studies Completed and Pending: Completed Studies During Hospitalization Category Date Time Status XR chest 1V mohan ble [id number] Stat Exams 08/15/24 17:09 Completed XR lumbar spine 2 -3V* [id number] Routine Exams 08/16/24 15:13 [place] [id number] Routine Ultrasound 08/18/24 08:21 Com[place]acent[place] bd w [id number] Routine Ultrasound 08/18/24 14:03 Completed Pending at discharge Category Date Time Status Amylase, Peritone al Fluid Routine Lab 08/18/24 14:30 Received Anaerobic Culture Routine Lab 08/18/24 14:30 Results Blood Culture Sta t Lab 08/16/24 16:26 Results Blood Culture Sta t Lab 08/18/24 14:20 Results Body Fluid Cultur e & GS Routine Lab 08/18/24 14:30 Results Mycobacteria, Cul ture w/Fluor Routi ne Lab 08/18/24 14:30 Results Cytology [PTH] Ro utine Pth 08/18/24 13:58 Received Radiology Impressions Chest X-Ray 08/15/24 17:09 IMPRESSION: No acute findings. Lumbar Spine X-Ray 08/16/24 15:13 IMPRESSION: There are multilevel degenerative changes present of the lumbar spine overall similar with no interval fracture or dislocation appreciated. If there is persistent pain or radicular-type symptoms then consider MRI. Abdomen Ultrasound 08/18/24 08:21 IMPRESSION: Small amount of abdominal ascites LEFT lower quadrant Paracentesis Ultrasound 08/18/24 14:03 IMPRESSION: Uncomplicated ultrasound-guided paracentesis. Removal of 1000 cc Fluid sent for requested diagnostic tests. Laboratory Results WBC 3.71 10^3/uL (3.2 9-11.43) 08/21/24 03:49 Corrected WBC Cancelled 08/20/24 07:14 RBC 3.91 10^6/uL (3.8 5-5.65) 08/21/24 03:49 Hgb 11.00 g/dL (11.27 -16.99) L 08/21/24 03:49 Hct 35.8 % (36-47) L 08/21/24 03:49 MCV 91.6 fl (85-98) 08/21/24 03:49 MCH 28.1 pg (27-33) 08/21/24 03:49 MCHC 30.7 g/dL (30-55) 08/21/24 03:49 RDW 14.1 % (12.1-15.1 ) 08/21/24 03:49 Plt Count 76 10^3/cmm (157- 399) L 08/21/24 03:49 MPV 12.4 fL (7.4-10.4 ) H 08/21/24 03:49 Gran % Cancelled 08/20/24 07:14 Neut % (Auto) 59.1 % 08/21/24 03:49 Lymph % (Auto) 16.4 % 08/21/24 03:49 [place] % (Auto) 17.8 % 08/21/24 03:49 Eos % (Auto) 5.4 % 08/21/24 03:49 Baso % (Auto) 0.8 % 08/21/24 03:49 Neut # (Auto) 2.19 10^3/uL (1.8 -7.7) 08/21/24 03:49 Lymph # (Auto) 0.6 10^3/uL (0.8- 4.8) L 08/21/24 03:49 [place] # (Auto) 0.7 10^3/uL (0.2- 0.9) 08/21/24 03:49 Eos # (Auto) 0.2 10^3/uL (0.0- 0.8) 08/21/24 03:49 Baso # (Auto) 0.0 10^3/uL (0.0- 0.1) 08/21/24 03:49 Absolute Gran (aut o) Cancelled 08/20/24 07:14 Nucleated RBC % (a uto) 0 % 08/21/24 03:49 Nucleated RBCs # 0.0 /100WBC 08/21/24 03:49 Differential Comme nt Yes 08/18/24 14:30 PT 17.40 SECONDS (12 .1-14.9) H 08/17/24 08:41 INR 1.33 (0.8-1.2) H 08/17/24 08:41 Sodium 136 mmol/L (136-1 45) 08/21/24 03:49 Potassium 4.0 mmol/L (3.5-5 .1) 08/21/24 03:49 Chloride 105 mmol/L (98-10 7) 08/21/24 03:49 Carbon Dioxide 23 mmol/L (22-29) 08/21/24 03:49 Anion Gap 12.0 (5-19) 08/21/24 03:49 BUN 20 mg/dL (6-20) 08/21/24 03:49 Creatinine 0.9 mg/dL (0.5-0. 9) 08/21/24 03:49 GFR Calculation 64.5 mL/min (90-1 30) L 08/21/24 03:49 Glucose 96 mg/dL (65-115) 08/21/24 03:49 Calculated Osmolal ity 284 mOsm/kg (285- 295) L 08/21/24 03:49 Calcium 7.7 mg/dL (8.5-10 .5) L 08/21/24 03:49 Iron 111 ug/dL (37-145 ) 08/16/24 16:26 TIBC 201 mcg/dl 08/16/24 16:26 % Saturation 55.2 % (20-50) H 08/16/24 16:26 Unsat Iron Binding 90 ug/dL (112-347 ) L 08/16/24 16:26 Total Bilirubin 1.0 mg/dL (0.15-1 .2) 08/21/24 03:49 GGT 39 U/L (5-36) H 08/16/24 16:26 AST 35 U/L (0-32) H 08/21/24 03:49 ALT 16 U/L (0-33) 08/21/24 03:49 Alkaline Phosphata se 121 U/L (35-105) H 08/21/24 03:49 Ammonia 83 umol/L (11-51) H 08/15/24 18:43 Lactate Dehydrogen ase 258 U/L (135-214) H 08/16/24 16:26 NT-Pro-B Natriuret Pep 269 pg/mL (0-125) H 08/15/24 17:31 Total Protein 4.8 g/dL (6.6-8.7 ) L 08/21/24 03:49 Albumin 2.2 g/dL (3.5-5.2 ) L 08/21/24 03:49 Globulin 2.6 g/dL (1.3-4.6 ) 08/21/24 03:49 Vitamin B12 439 pg/mL (232-12 45) 08/16/24 16:26 Folate 7.3 ng/mL (4.8-37 .3) 08/17/24 08:41 Procalcitonin 0.08 ng/mL (0-0.5 ) 08/16/24 16:26 TSH 5.46 uIU/mL (0.27 -4.20) H 08/16/24 16:26 Urine Color [place] (Yellow) A 08/17/24 17:00 Urine Appearance Cloudy (CLEAR) A 08/17/24 17:00 Urine pH 6.0 (5-7) 08/17/24 17:00 Ur Specific Gravit y 1.022 (1.005-1.0 30) 08/17/24 17:00 Urine Protein Trace (Negative) A 08/17/24 17:00 Urine Glucose (UA) Negative (Normal ) 08/17/24 17:00 Urine Ketones Trace (Negative) 08/17/24 17:00 Urine Blood 1+ (Negative) A 08/17/24 17:00 Urine Nitrate Negative (Negati ve) 08/17/24 17:00 Urine Bilirubin 1+ (Negative) H 08/17/24 17:00 Urine Urobilinogen 1.0 mg/dL (Negati ve) 08/17/24 17:00 Ur Leukocyte Sandra ase 2+ (Negative) A 08/17/24 17:00 Urine RBC 3-5 /hpf (0-2) 08/17/24 17:00 Urine WBC >100 /hpf (0-5) H 08/17/24 17:00 Ur Squamous Epith Cells 0-5 /hpf (0-5) 08/17/24 17:00 Amorphous Sediment Not Reportable 08/17/24 17:00 Urine Bacteria None seen /hpf (N ONE) 08/17/24 17:00 Hyaline Casts 10.73 /lpf 08/17/24 17:00 Urine Yeast Trace /hpf 08/15/24 22:10 Fluid Color Yellow 08/18/24 14:30 Fluid Appearance Clear 08/18/24 14:30 Fluid Specific Gra v 1.015 08/18/24 14:30 Fluid pH 6.0 08/18/24 14:30 Fluid WBC 71 /uL 08/18/24 14:30 Fluid RBC 0 10^3/uL 08/18/24 14:30 Fld Polynuclear WB Cs # 0.007 08/18/24 14:30 Fld Polynuclear WB Cs % 9.900 % 08/18/24 14:30 Fl Mononucl WBCs # (Auto) 0.064 08/18/24 14:30 Fl Mononuclear % A uto 90.100 % 08/18/24 14:30 Fld Crystal Latera lity Not Reportable 08/18/24 14:30 Fluid Glucose 144.0 mg/dL 08/18/24 14:30 Fluid Total Protei n 1.0 g/dL 08/18/24 14:30 Fluid Albumin 0.6 g/dL 08/18/24 14:30 Fluid LDH 47 U/L 08/18/24 14:30 Fluid Alk Phosphat ase 20 IU/L 08/18/24 14:30 Fluid Cholesterol 14 mg/dL (0-200) 08/18/24 14:30 Fluid Triglyceride s 27 mg/dL (0-150) 08/18/24 14:30 Fluid Uric Acid 6 mg/dL 08/18/24 14:30 Pleural Amylase Cancelled 08/18/24 14:30 Vancomycin Trough 10.2 ug/mL (10-15 ) 08/21/24 11:55 Salicylates < 0.3 mg/dL (3-10 ) L 08/15/24 18:43 Urine Opiates Scre en Positive ng/mL (N egative) H 08/15/24 22:10 Acetaminophen < 5.0 ug/mL (10-3 0) L 08/15/24 18:43 Ur Barbiturates Sc reen Negative ng/mL (N egative) 08/15/24 22:10 Ur Phencyclidine S crn Negative ng/mL (N egative) 08/15/24 22:10 Ur Amphetamines Sc reen Negative ng/mL (N egative) 08/15/24 22:10 U Benzodiazepines Scrn Negative ng/mL (N egative) 08/15/24 22:10 Urine Cocaine Scre en Negative ng/mL (N egative) 08/15/24 22:10 U Marijuana (THC) Screen Negative ng/mL (N egative) 08/15/24 22:10 Adenovirus (PCR) Not detected (NO T DETECT) 08/17/24 15:35 C. pneumoniae DNA (PCR) Not detected (NO T DETECT) 08/17/24 15:35 C. difficile (PCR) Negative (Negati ve) 08/18/24 19:34 Coronavirus 229E ( PCR) Not detected (NO T DETECT) 08/17/24 15:35 Hepatitis A IgM Ab Non-reactive (No nreactive) 08/16/24 16:26 Hep Bs Antigen Non-reactive (No nreactive) 08/16/24 16:26 Hep Bs Antibody 261.9 (11.5-1000 ) 08/16/24 16:26 Hep B Core Total A b Non-reactive (No nreactive) 08/16/24 16:26 Hepatitis C Antibo dy Reactive (Nonrea ctive) H 08/16/24 16:26 HCV RNA (PCR) IUs/ ml <1.18 not detecte d Log IU/mL (NOT D ETECTED) 08/16/24 22:22 HCV RNA (PCR) IU l og10 <15 not detected IU/mL (NOT DETECTE D) 08/16/24 22:22 HIV 1&2 Ab & HIV 1 Ag Non-reactive (No n-Reactiv) 08/16/24 17:31 HIV 1&2 Antibody Non-reactive (No n-Reactiv) 08/16/24 17:31 Human Metapneumovi r PCR Not detected (NO T DETECT) 08/17/24 15:35 Influenza A (H1) P CR Not detected (NO T DETECT) 08/17/24 15:35 Influ A (H1/09) PC R Not detected (NO T DETECT) 08/17/24 15:35 Influenza A (H3) P CR Not detected (NO T DETECT) 08/17/24 15:35 Influenza Type A ( PCR) Not detected (NO T DETECT) 08/17/24 15:35 Influenza Type B ( PCR) Not detected (NO T DETECT) 08/17/24 15:35 M. pneumoniae (PCR ) Not detected (NO T DETECT) 08/17/24 15:35 Parainfluenza 1 (P CR) Not detected (NO T DETECT) 08/17/24 15:35 Parainfluenza 2 (P CR) Not detected (NO T DETECT) 08/17/24 15:35 Parainfluenza 3 (P CR) Not detected (NO T DETECT) 08/17/24 15:35 Parainfluenza 4 (P CR) Not detected (NO T DETECT) 08/17/24 15:35 RSV Type A (PCR) Not detected (NO T DETECT) 08/17/24 15:35 RSV Type B (PCR) Not detected (NO T DETECT) 08/17/24 15:35 Entero/Rhino (PCR) Not detected (NO T DETECT) 08/17/24 15:35 SARS-CoV-2 (PCR) Not detected (NO T DETECT) 08/17/24 15:35 Vitals: Last Vital Signs Temp 97.9 F 08/21/24 11:30 Pulse 69 08/21/24 11:30 Resp 19 H 08/21/24 11:30 BP 137/79 08/21/24 11:30 Pulse Ox 96 08/21/24 11:30 O2 Del Method Room Air 08/21/24 11:30 Discharge Plan Discharge Patient Disposition: Home Condition: Stable Prescriptions: New amoxicillin-pot clavulanate 875-125 mg Tablet 1 tab PO BID 7 Days Qty: 14 0RF Continued albuterol sulfate [Ventolin HFA] 90 mcg/actuation HFA aerosol inhaler 2 puff inhalation Q6H PRN (Reason: Shortness Of Breath) hydroxyzine HCl 25 mg tablet 100 mg PO BEDTIME Xifaxan 550 mg Tablet 550 mg PO BID nadolol 20 mg Tablet 20 mg PO BEDTIME paroxetine HCl 40 mg tablet 40 mg PO DAILY lactulose [Constulose] 10 gram/15 mL solution 15 ml PO DAILY PRN (Reason: Constipation) Changed spironolactone 25 mg Tablet 50 mg PO DAILY Qty: 10 0RF Discontinued cefdinir 300 mg capsule 300 mg PO BID Discharge Orders: Discharge Order (Routine); Ordered 08/21/24 Ordered By: Tres Abdul Referrals: Estrella Gerard FNP [Primary Care Provider, [facility]] - 08/29/24 2:20 pm Discharge Diet: Usual diet and Regular Discharge Activity: Resume usual activity Patient Instructions: Amoxicillin/Clavulanate Potassium (By mouth), Urinary Tract Infection in Women (GEN), Opioid Safety Coding Level of Care Code Acute Code for Chg Fwd Diagnoses Fever R50.9 Enterococcus UTI N39.0; B95.2 CODY (acute kidney injury) N17.9 Pain R52 Cirrhosis of liver without ascites, unspecified hepatic cirrhosis type K74.60 Ascites presence: without ascites Hepatic cirrhosis type: unspecified hepatic cirrhosis Hepatitis C B19.20 Abdominal ascites R18.8 Serum ammonia increased E72.20 Thrush, oral B37.0 S/P abdominal paracentesis Z98.890 MDD (major depressive disorder), recurrent severe, without psychosis F33.2 Suicidal thoughts R45.851 Thrombocytopenia D69.6
--- NOTE | 2024-08-21 14:31 | PC.NURSE ---
This nurse went to NPU to gather patients belongings as she is now discharging from med surg floor rather than transferring back to NPU. Pt states that she is missing a white wallet with colorful andrea on it that had garica in it as well. Wallet nor garcia was documented upon admission with personal belongings. This nurse called NPU to see if they could locate it. Additional belongings were located by NPU staff and returned to pt which included white wallet with colorful hearts, andrea and owls and $59.58 in garcia.
[2024-08-21 15:04] VITALS: BP 130/80; PULSE 70; O2SAT 96
[2024-08-22 11:05] LABS: Amylase, Peritoneal Fluid 14 U/L
== END 2024-08-21 15:06 | disposition home or self-care (01) | DRG 885 ==
LOC: ER 22:19 → ER IP 23:50 → NP 08-16 00:12 → MEDSURG 08-18 11:55
PROVIDERS: Emergency Medicine; Student in an Organized Health Care Education/Training Program; Admitting Provider Psychiatry & Neurology Psychiatry; Emergency Provider Student in an Organized Health Care Education/Training Program; PCP Nurse Practitioner Family; Visit Provider Psychiatry & Neurology Psychiatry
DX: F33.2 Major depressive disorder, recurrent severe without psychotic features (principal); A41.9 Sepsis, unspecified organism; R45.851 Suicidal ideations; N39.0 Urinary tract infection, site not specified; R18.8 Other ascites; B37.0 Candidal stomatitis; N17.9 Acute kidney failure, unspecified; B95.2 Enterococcus as the cause of diseases classified elsewhere; G62.9 Polyneuropathy, unspecified; K72.90 Hepatic failure, unspecified without coma; D69.6 Thrombocytopenia, unspecified; T50.996A Underdosing of other drugs, medicaments and biological substances, initial encounter; F15.21 Other stimulant dependence, in remission; F10.91 Alcohol use, unspecified, in remission; G89.29 Other chronic pain; F43.12 Post-traumatic stress disorder, chronic; F41.1 Generalized anxiety disorder; Z86.19 Personal history of other infectious and parasitic diseases; Z76.82 Awaiting organ transplant status; Z91.128 Patient's intentional underdosing of medication regimen for other reason; Z86.16 Personal history of COVID-19; Z87.440 Personal history of urinary (tract) infections
CPT/HCPCS: 36415; 49083; 71045; 72100; 76705; 80053; 80202; 80306; 80307; 80503; 81001; 82042; 82140; 82150; 82465; 82607; 82746; 82945; 82977; 83540; 83550; 83615; 83880; 83986; 84075; 84145; 84157; 84315; 84443; 84478; 84560; 85025; 85610; 86705; 86706; 86709; 86803; 87015; 87040; 87070; 87075; 87077; 87086; 87116; 87186; 87205; 87206; 87340; 87486; 87493; 87522; 87581; 87633; 87801; 87806; 88112; 88305; 89050; 93005; 97165; 99285; J2185; J3370; J7030; J9999

== ENCOUNTER 2024-08-22 11:09 | Day surgery (SDC) | payer BC, MEDICAID, SELFPAY ==
[2024-05-17 15:33] VITALS: BP 150/84; BMI 31.3
[2024-08-22 11:37] VITALS: BP 160/82; PULSE 67; RESP 18; TEMP 36.5; O2SAT 99; BMI 33.3
--- NOTE | 2024-08-22 11:49 | US_ITS ---
WS: [id number] ULTRASOUND-GUIDED THERAPEUTIC AND DIAGNOSTIC PARACENTESIS Procedure, risks, and complications have been explained to the patient. Consent is obtained. Utilizing aseptic technique and 1% buffered lidocaine, a small dermatome was made through which a 5 [place] Yueh catheter was inserted. Approximately 6400 ml of clear peritoneal fluid was obtained without difficulty. No complications encountered. US/US paracentesis abd w [id number] IMPRESSION: Uncomplicated paracentesis yielding 6400 ml of peritoneal fluid.
[2024-08-22 12:45] LABS: Appearance, Peritoneal Fluid Cloudy (Clear); Color, Peritoneal Fluid Pale Yellow (Pale Yellow); Cyto Order Verification No Order; Pathology Referral Yes
[2024-08-22 12:48] LABS: Mononuclear #, Pertinoneal Fl 0.057 10^3/uL; Polynuclear # Cells, Perit 0.013 10^3/uL; RBC Pertioneal Fluid 0 10^3/uL; WBC Peritoneal Fluid 70 /uL
[2024-08-22] MEDS: albumin 50 G/200 ML BAG 60 G IV (12:55)
== END 2024-08-22 13:39 | disposition home or self-care (01) ==
PROVIDERS: Radiology Diagnostic Radiology; PCP Nurse Practitioner Family; Visit Provider Internal Medicine Gastroenterology
PROC: (CPT 49082; principal; 2024-08-22 12:30)
DX: B19.20 Unspecified viral hepatitis C without hepatic coma (principal); K74.69 Other cirrhosis of liver; R18.8 Other ascites; K76.82 Hepatic encephalopathy
CPT/HCPCS: 49083; 76705; 80503; 87070; 87075; 87205; 89050; 96365; P9046

== ENCOUNTER 2024-08-29 11:43 | Day surgery (SDC) | payer BC, MEDICAID, SELFPAY ==
[2024-05-17 15:33] VITALS: BP 150/84; BMI 31.3
[2024-08-29 11:45] VITALS: BP 115/64; PULSE 68; RESP 18; TEMP 36.8; O2SAT 98; BMI 34.1
--- NOTE | 2024-08-29 12:11 | US_ITS ---
WS: [id number] ULTRASOUND-GUIDED PARACENTESIS CLINICAL INFORMATION: decompensated hcv cirrhosis, ascites, hepatic encephalopathy COMPARISON: None. Procedure Informed consent: The risks, benefits, and alternatives of the procedure were discussed with the patient. Verbal and written consent was obtained. Timeout: A timeout was performed to confirm the correct patient, procedure, and site. Preparation: A suitable skin site was identified. The patient was prepped and draped in usual sterile fashion. Lidocaine 1% was used for local anesthesia. Catheter: 4 [place] One-step Net Zero AquaLifeeh catheter. Side: LEFT lower quadrant. Fluid Volume: 4500 ml Color: Clear yellow DISPOSITION: Discarded safely. Complications: None. Patient disposition: Discharged from the department in stable condition. US/US paracentesis abd w [id number] IMPRESSION: Uncomplicated ultrasound-guided paracentesis. Removal of 4500 cc
[2024-08-29 13:47] LABS: Appearance, Peritoneal Fluid Hazy (Clear); Color, Peritoneal Fluid Pale Yellow (Pale Yellow); Cyto Order Verification No Order
[2024-08-29 13:52] LABS: Mononuclear #, Pertinoneal Fl 0.054 10^3/uL; Polynuclear # Cells, Perit 0.033 10^3/uL; RBC Pertioneal Fluid 1 10^3/uL; WBC Peritoneal Fluid 87 /uL
[2024-08-29 14:11] LABS: Pathology Referral Yes
== END 2024-08-29 14:14 | disposition home or self-care (01) ==
PROVIDERS: PCP Nurse Practitioner Family; Visit Provider Internal Medicine Gastroenterology
PROC: (CPT 49082; principal; 2024-08-29 12:00)
DX: R18.8 Other ascites (principal); K74.69 Other cirrhosis of liver; K76.82 Hepatic encephalopathy; B19.20 Unspecified viral hepatitis C without hepatic coma
CPT/HCPCS: 49083; 80503; 87070; 87075; 87205; 89050

== ENCOUNTER 2024-09-05 11:18 | Day surgery (SDC) | payer BC, MEDICAID, SELFPAY ==
[2024-05-17 15:33] VITALS: BP 150/84; BMI 31.3
[2024-09-05 12:11] VITALS: BP 136/78; PULSE 69; RESP 18; TEMP 36.3; O2SAT 98; BMI 33.3
--- NOTE | 2024-09-05 12:13 | US_ITS ---
WS: [id number] ULTRASOUND-GUIDED THERAPEUTIC AND DIAGNOSTIC PARACENTESIS Procedure, risks, and complications have been explained to the patient. Consent is obtained. Utilizing aseptic technique and 1% buffered lidocaine, a small dermatome was made through which a 5 [place] Yueh catheter was inserted. Approximately 7700 ml of clear peritoneal fluid was obtained without difficulty. No complications encountered. US/US paracentesis abd w [id number] IMPRESSION: Uncomplicated paracentesis yielding 7700 ml of peritoneal fluid.
[2024-09-05 12:32] LABS: Eosinophils # 0.1 10^3/uL (0.0-0.8); Eosinophils % 3.7 %; Hematocrit 37.3 % (36-47); Lymphocytes # 0.7 10^3/uL (0.8-4.8); Lymphocytes % 17.1 %; Mean Corpuscular HGB Conc 31.4 g/dL (30-55); Mean Corpuscular Hemoglobin 27.5 pg (27-33); Mean Corpuscular Volume 87.6 fl (85-98); Mean Platelet Volume 11.4 fL (7.4-10.4); Monocytes # 0.3 10^3/uL (0.2-0.9); Monocytes % 8.4 %; Neutrophils # 2.65 10^3/uL (1.8-7.7); Neutrophils % 69.5 %; Nucleated Red Blood Cells % 0 %; Platelet Count 141 10^3/cmm (157-399); Red Blood Count 4.26 10^6/uL (3.85-5.65); Red Cell Distribution Width 14.2 % (12.1-15.1); White Blood Count 3.81 10^3/uL (3.29-11.43)
[2024-09-05 12:50] LABS: Alanine Aminotransferase 19 U/L (0-33); Albumin Level 2.5 g/dL (3.5-5.2); Alkaline Phosphatase 112 U/L (35-105); Anion Gap 12.7 (5-19); Aspartate Amino Transferase 34 U/L (0-32); Blood Urea Nitrogen 13 mg/dL (6-20); Calcium 8.2 mg/dL (8.5-10.5); Carbon Dioxide 24 mmol/L (22-29); Chloride 104 mmol/L (98-107); Creatinine Clr Calc Pharmacy 57.5564; Globulin 3.2 g/dL (1.3-4.6); Glomerular Filtration Rate 46.3 mL/min (90-130); Glucose 140 mg/dL (65-115); Osmolality Calculated 286 mOsm/kg (285-295); Potassium 3.7 mmol/L (3.5-5.1); Sodium 137 mmol/L (136-145); Total Bilirubin 1.7 mg/dL (0.15-1.2); Total Protein 5.7 g/dL (6.6-8.7)
[2024-09-05] MEDS: albumin 50 G/200 ML BAG 60 G IV (14:09)
[2024-09-05 14:19] LABS: Polynuclear # Cells, Perit 0.011 10^3/uL; RBC Pertioneal Fluid 0 10^3/uL; WBC Peritoneal Fluid 61 /uL
[2024-09-05 14:45] LABS: Appearance, Peritoneal Fluid Hazy (Clear); Color, Peritoneal Fluid Yellow (Pale Yellow); Cyto Order Verification No Order; Pathology Referral Yes
== END 2024-09-05 14:50 | disposition home or self-care (01) ==
LOC: GILAB 11:18
PROVIDERS: PCP Nurse Practitioner Family; Visit Provider Internal Medicine Gastroenterology
PROC: (CPT 49082; principal; 2024-09-05 12:00)
DX: R18.8 Other ascites (principal); B19.20 Unspecified viral hepatitis C without hepatic coma; K74.69 Other cirrhosis of liver; K76.82 Hepatic encephalopathy
CPT/HCPCS: 36415; 49083; 80053; 80503; 85025; 85610; 87070; 87075; 87205; 89050; P9046

== ENCOUNTER 2024-09-12 11:05 | Day surgery (SDC) | payer BC, MEDICAID, SELFPAY ==
[2024-05-17 15:33] VITALS: BP 150/84; BMI 31.3
--- NOTE | 2024-09-12 11:31 | US_ITS ---
WS: [id number] ULTRASOUND-GUIDED PARACENTESIS CLINICAL INFORMATION: ASCITIES COMPARISON: None. Procedure Informed consent: The risks, benefits, and alternatives of the procedure were discussed with the patient. Verbal and written consent was obtained. Timeout: A timeout was performed to confirm the correct patient, procedure, and site. Preparation: A suitable skin site was identified. The patient was prepped and draped in usual sterile fashion. Lidocaine 1% was used for local anesthesia. Catheter: 4 [place] One-step Yueh catheter. Side: LEFT lower quadrant. Fluid Volume: 7000 ml Color: Clear yellow DISPOSITION: Discarded safely. Complications: None. Patient disposition: Discharged from the department in stable condition. US/US paracentesis abd w [id number] IMPRESSION: Uncomplicated ultrasound-guided paracentesis. Removal of 7000 cc
[2024-09-12 11:34] VITALS: BP 138/88; PULSE 71; RESP 18; TEMP 36.9; O2SAT 96; BMI 33.3
[2024-09-12 11:50] LABS: Basophils # 0.1 10^3/uL (0.0-0.1); Basophils % 1.1 %; Eosinophils # 0.1 10^3/uL (0.0-0.8); Eosinophils % 2.5 %; Hematocrit 37.5 % (36-47); Lymphocytes # 0.9 10^3/uL (0.8-4.8); Mean Corpuscular HGB Conc 32.8 g/dL (30-55); Mean Corpuscular Volume 85.2 fl (85-98); Mean Platelet Volume 12.7 fL (7.4-10.4); Monocytes # 0.5 10^3/uL (0.2-0.9); Monocytes % 10.3 %; Neutrophils # 3.17 10^3/uL (1.8-7.7); Neutrophils % 66.9 %; Nucleated Red Blood Cells % 0 %; Platelet Count 115 10^3/cmm (157-399); Red Cell Distribution Width 14.6 % (12.1-15.1); White Blood Count 4.74 10^3/uL (3.29-11.43)
[2024-09-12 12:03] LABS: INR 1.26 (0.8-1.2)
[2024-09-12 12:08] LABS: Alanine Aminotransferase 13 U/L (0-33); Albumin Level 2.9 g/dL (3.5-5.2); Alkaline Phosphatase 130 U/L (35-105); Anion Gap 16.3 (5-19); Aspartate Amino Transferase 26 U/L (0-32); Blood Urea Nitrogen 12 mg/dL (6-20); Carbon Dioxide 23 mmol/L (22-29); Chloride 100 mmol/L (98-107); Creatinine Clr Calc Pharmacy 62.7888; Glomerular Filtration Rate 51.2 mL/min (90-130); Glucose 135 mg/dL (65-115); Osmolality Calculated 284 mOsm/kg (285-295); Potassium 3.3 mmol/L (3.5-5.1); Sodium 136 mmol/L (136-145); Total Bilirubin 1.7 mg/dL (0.15-1.2); Total Protein 5.9 g/dL (6.6-8.7)
[2024-09-12 12:38] LABS: Cyto Order Verification No Order
[2024-09-12 12:39] LABS: Mononuclear #, Pertinoneal Fl 0.078 10^3/uL; Polynuclear # Cells, Perit 0.029 10^3/uL; RBC Pertioneal Fluid 2 10^3/uL; WBC Peritoneal Fluid 107 /uL
[2024-09-12 12:41] LABS: Appearance, Peritoneal Fluid Cloudy (Clear); Color, Peritoneal Fluid Pale Yellow (Pale Yellow); Pathology Referral Yes
[2024-09-12 12:46] VITALS: BP 140/68; PULSE 69; RESP 18; O2SAT 97
[2024-09-12] MEDS: ALBUMIN 60 G IV (13:04)
== END 2024-09-12 13:38 | disposition home or self-care (01) ==
LOC: GILAB 11:05
PROVIDERS: Radiology Neuroradiology; PCP Nurse Practitioner Family; Visit Provider Internal Medicine Gastroenterology
PROC: (CPT 49082; principal; 2024-09-12 12:00)
DX: R18.8 Other ascites (principal); B19.20 Unspecified viral hepatitis C without hepatic coma; K74.69 Other cirrhosis of liver; K76.82 Hepatic encephalopathy
CPT/HCPCS: 36415; 49083; 80053; 80503; 85025; 85610; 87070; 87075; 87205; 89050; 96365; P9046

== ENCOUNTER → 2024-09-26 11:01 | Day surgery (SDC) | payer BC, MEDICAID, SELFPAY ==
[2024-05-17 15:33] VITALS: BP 150/84; BMI 31.3
--- NOTE | 2024-09-26 11:32 | US_ITS ---
WS: [id number] ULTRASOUND-GUIDED PARACENTESIS CLINICAL INFORMATION: decompensated hcv cirrhosis COMPARISON: None. Procedure Informed consent: The risks, benefits, and alternatives of the procedure were discussed with the patient. Verbal and written consent was obtained. Timeout: A timeout was performed to confirm the correct patient, procedure, and site. Preparation: A suitable skin site was identified. The patient was prepped and draped in usual sterile fashion. Lidocaine 1% was used for local anesthesia. Catheter: 4 [place] One-step [place] catheter. Side: LEFT lower quadrant. Fluid Volume: 8600 ml Color: Clear yellow DISPOSITION: Discarded safely. Complications: None. Patient disposition: Discharged from the department in stable condition. US/US paracentesis abd w [id number] IMPRESSION: Uncomplicated ultrasound-guided paracentesis. Removal of 8600 cc
[2024-09-26 11:38] VITALS: BP 148/68; PULSE 58; RESP 16; TEMP 36.6; O2SAT 96; BMI 33.3
[2024-09-26 12:25] LABS: Basophils % 0.8 %; Eosinophils # 0.2 10^3/uL (0.0-0.8); Eosinophils % 4.7 %; Hematocrit 37.7 % (36-47); Lymphocytes # 0.7 10^3/uL (0.8-4.8); Lymphocytes % 15.2 %; Mean Corpuscular HGB Conc 32.1 g/dL (30-55); Mean Corpuscular Hemoglobin 27.9 pg (27-33); Mean Corpuscular Volume 87.1 fl (85-98); Mean Platelet Volume 12.5 fL (7.4-10.4); Monocytes # 0.5 10^3/uL (0.2-0.9); Monocytes % 10.7 %; Neutrophils # 3.34 10^3/uL (1.8-7.7); Neutrophils % 68.4 %; Nucleated Red Blood Cells % 0 %; Platelet Count 129 10^3/cmm (157-399); Red Blood Count 4.33 10^6/uL (3.85-5.65); Red Cell Distribution Width 15.1 % (12.1-15.1); White Blood Count 4.88 10^3/uL (3.29-11.43)
[2024-09-26 12:40] LABS: INR 1.22 (0.8-1.2)
[2024-09-26 12:50] LABS: Alanine Aminotransferase 12 U/L (0-33); Albumin Level 2.7 g/dL (3.5-5.2); Alkaline Phosphatase 124 U/L (35-105); Aspartate Amino Transferase 26 U/L (0-32); Blood Urea Nitrogen 13 mg/dL (6-20); Calcium 8.1 mg/dL (8.5-10.5); Carbon Dioxide 24 mmol/L (22-29); Chloride 104 mmol/L (98-107); Creatinine Clr Calc Pharmacy 86.3346; Globulin 2.9 g/dL (1.3-4.6); Glomerular Filtration Rate 73.9 mL/min (90-130); Glucose 95 mg/dL (65-115); Osmolality Calculated 282 mOsm/kg (285-295); Sodium 136 mmol/L (136-145); Total Bilirubin 0.8 mg/dL (0.15-1.2); Total Protein 5.6 g/dL (6.6-8.7)
[2024-09-26 13:34] LABS: Mononuclear #, Pertinoneal Fl 0.055 10^3/uL; Polynuclear # Cells, Perit 0.012 10^3/uL; RBC Pertioneal Fluid 0 10^3/uL; WBC Peritoneal Fluid 67 /uL
[2024-09-26 13:36] LABS: Appearance, Peritoneal Fluid Hazy (Clear); Color, Peritoneal Fluid Pale Yellow (Pale Yellow); Cyto Order Verification No Order; Pathology Referral Yes
--- NOTE | 2024-09-26 14:18 | PC.NURSE ---
Albumin order was not entering into emar correctly when scanned. Pharmacy was attempted to fix the orders so that proper dose would be scanned/given. Pt expressed desire to refuse albumin- pharmacy notified. Pt departed.
== END ==
LOC: GILAB 11:01
PROVIDERS: Radiology Neuroradiology; PCP Nurse Practitioner Family; Visit Provider Internal Medicine Gastroenterology
PROC: (CPT 49082; principal; 2024-09-26 12:00)
DX: R18.8 Other ascites (principal); B19.20 Unspecified viral hepatitis C without hepatic coma; K74.69 Other cirrhosis of liver
CPT/HCPCS: 49083; 80053; 80503; 85025; 85610; 87070; 87075; 87205; 89050

== ENCOUNTER 2024-10-15 13:56 | Inpatient (IN) | payer BC, MEDICAID, SELFPAY ==
[2024-05-17 15:33] VITALS: BP 150/84; BMI 31.3
--- OUTSIDE RECORDS SUMMARY | 2024-10-15 02:15 | XMS_ITS | Encounter Summary ---
Author Organization [facility] Address [address] [place] [address] Care Team Providers Care Director Ehs Name Role Phone MoustaphaEstrella mccormick Kingsley SANDOVALP Primary Care Provider [phone] Reason for Visit * Reason Comments Leg Swelling Encounter Details Date Type Department Care Team ([facility] st Contact Info) Description 10/15/2024 2:15 AM CDT - 10/15/2024 12:55 PM CDT Emergency [facility] Emergency Medicine [address] [place] [id number] Kodi Roman, DO [address] [place] [address] [place] [address] Decompensated HCV cirrhosis (CMS/HCC) (Primary Dx); Other ascites; Bilateral lower extremity edema; Hepatic encephalopathy (CMS/HCC); Methamphetamine abuse (CMS/HCC); Abnormal urinalysis Discharge Disposition: Acute Care Hospital Social History Tobacco Use Types Packs/Day Years Used Date Smoking Tobacco: Never Smokeless Tobacco: Never Alcohol Use Standard Drinks/Week Comments Not Currently 0 (1 standard drink = 0.6 oz pur e alcohol) Feeling Safe Answer Date Recorded Are you in a relationship wi th someone who hurts you emotionally and/or physically? No 10/15/2024 Comments No Sex and Gender Information Value Date Recorded Sex Assigned at Not on file Legal Sex Female 10:22 PM CDT Gender Identity Not on file Sexual Orientation Not on file documented as of this encounter Last Filed Vital Signs Vital Sign Reading Time Taken Comments Blood Pressure 101/53 10/15/2024 12:45 PM CDT Pulse 52 10/15/2024 12:00 PM CDT Temperature 36.1 C (96.9 F) 10/15/2024 12:45 PM CDT Respiratory Rate 14 10/15/2024 12:45 PM CDT Oxygen Saturation 98% 10/15/2024 12:45 PM CDT Inhaled Oxygen Concentration - - Weight 98.2 kg (216 lb 9.6 oz) 10/15/2024 2:00 A M CDT Height 165.1 cm (5' 5 ) 10/15/2024 2:00 AM CDT Body Mass Index 36.04 10/15/2024 2:00 AM CDT documented in this encounter Medications at Time of Discharge nadoloL (CORGARD) 20 mg tablet Take 20 mg by mouth daily at bedtime. PARoxetine HCl (PAXIL) 20 mg tablet Take 40 mg by mouth daily. furosemide (LASIX) 40 mg tablet Take 80 mg by mouth daily. spironolactone (ALDACTONE) 50 mg tablet Take 200 mg by mouth daily. 07/07/2024 rifAXIMin (XIFAXAN) 550 mg Tablet Take 550 mg by mouth 2 times daily. lidocaine (lidocaine viscous 2%) 2 % SolutionIndicatio ns:Stomatitis 5 mL by Mouth/Throat route every 6 hours as needed for Pain. 100 mL 09/20/2024 triamcinolone acetonide (KENALOG) 0.5 % CreamIndications: Dermatitis,Prurit us Apply to affected area 2 times daily. 30 Gram 09/20/2024 hydrOXYzine HCL (ATARAX) 25 mg tabletIndications :Pruritus Take 1 tab in am and 2 tabs in pm 90 Tablet 2 09/20/2024 lactulose (ENULOSE) 10 gram/15 mL oral solution Take 10 Grams by mouth 1 time daily as needed. 06/09/2024 FLUoxetine (PROzac) 20 mg capsule Take 20 mg by mouth daily. documented as of this encounter ED Notes * Shireen Mendez RN - 10/15/2024 12:54 PM CDT [facility] EMS crew here. Patient resting with respirations even and unlabored but awakens easily. Sinusbradycardia on monitor. Saline lock patent and intact. Patient belongings sent with patient. [facility] CSU Marni notified that patient is leaving for transfer. * Shireen Mendez RN - 10/15/2024 12:30 PM CDT [facility] Dispatch toning out [facility] EMS for transfer * Shireen Mendez RN - 10/15/2024 11:00 AM CDT Patient resting with respirations even and unlabored. * Shireen Mendez RN - 10/15/2024 9:11 AM CDT [facility] calling and Wire Twisting Machine Operator notified on delay in transfer due to no ambulances available at this time * Shireen Mendez RN - 10/15/2024 8:46 AM CDT Warm blanket provided. Patient awakens easily. Updated on wait time. Patient closes eyes respirations even and unlabored * Shireen Mendez RN - 10/15/2024 7:30 AM CDT Patient resting with respirations even and unlabored. * Dalia Dixon RN - 10/15/2024 5:20 AM CDT Called [facility] dispatch for patient transport, spoke with Dhiraj. * Dalia Dixon RN - 10/15/2024 5:08 AM CDT Faxed [employer] [place] [employer] insurance form to [facility] dispatch. * Keshia Goodrich RCP - 10/15/2024 2:50 AM CDT EKG completed. Results given to Dr. Roman and scanned into [employer]Less. * Dalia Dixon RN - 10/15/2024 2:10 AM CDT Sandy Ernandez 59 y.o. female, arrived to the ED via TRANSPORTATION: private vehicle for complaintsof bilateral legs swelling with blisters and pain. Per patient legs started swelling 10/11/2024, has gradually gotten worse, 4 + pitting edema with weeping blisters, abdomen distended, per patient it has been over 2 weeks since she got her abdomen tapped to drain fluid. Rates pain in legs 9/10 constant burning and sharp. Chief Complaint Patient presents with Leg Swelling . Vitals taken, patient placed on monitor, clothing removed as needed per policy, privacy provided to patient. Respiratory: WDL - Regular rhythm, symmetrical chest expansion, no dyspnea , Cardiac/Circulatory: WDL - No numbness or tingling, no chest pain , Skin: see note above, patient is Alert and Oriented x4, pain scale: 9/10, findings; bleeding: without any bleeding noted. Behavior during evaluation: appropriate. Belongings secured, patient Weapons assessment: denied possession of any weaponsor firearms at this time. Patient comforted, all questions answered to the best of the staff's ability, education performed, and left patient in the room with the call light in reach, bed in lowest position, wheels locked, side rails up. * Kodi Roman DO - 10/15/2024 1:47 AM CDTAssociated Order(s): EKG Interpretation HISTORY OF PRESENT ILLNESS 59-year-old female comes in with bilateral pain pain and swelling of her legs. She states that she has blisters on her legs. She rates the pain 10. She states it is a constant burning but also sharp. She states they started swelling more on 10/11/2024. Patient is end-stage liver disease. She statesthat her belly is low than normal. She states it has been more than 2 weeks since she had her bellytapped to drain fluid. She states that because her belly is so big that it is hard for her to take a deep breath. She denies any chest pain. She denies any pain or burning with urination. She states her last bowel movement was earlier today and it was more like snot . Patient states that she has not taken lactulose for over [address] Freitas in [place] for her liver disease. History provided by: The patient nursing specialist used: No Arrived by: Private vehicle Arrived from: Home General Location: Abdomen and lower extremities Quality: Burning and sharp pain Severity: Severe Onset quality: Gradual Duration: 2 days Timing: Constant Progression: Worsening Chronicity: Recurrent Context: End-stage liver disease with ascites Relieved by: Nothing (normally she gets her paracentesis on a weekly basis. She has missed it for the past 2 weeks.) Worsened by: Nothing Ineffective treatments: N/A Associated symptoms: abdominal pain and shortness of breath Associated symptoms: no chest pain, no congestion, no cough, no diarrhea, no fatigue, no fever, no headaches, no loss of consciousness, no myalgias, no nausea, no rash, no rhinorrhea, no sore throat,no vomiting and no wheezing Abdominal pain: Location: Generalized Quality: Bloating and fullness Severity: Severe Onset quality: Gradual Timing: Constant Progression: Worsening Chronicity: Chronic Shortness of breath: Severity: Moderate (She stated that because her belly is so big it is hard for her to take a deep breath.) Onset quality: Gradual Timing: Constant Progression: Worsening Risk factors: End-stage liver disease. Lower extremity injury/pain Location: Leg Injury: no Leg location: L leg and R leg Pain details: Quality: Burning and sharp Radiates to: Does not radiate Severity: 9/10 Onset quality: Gradual Duration: Worse the past 2 days. Timing: Constant Progression: Worsening Chronicity: Chronic Dislocation: no Foreign body present: No foreign bodies Prior injury to area: No Relieved by: Nothing Worsened by: Activity and bearing weight Ineffective treatments: None tried Associated symptoms: decreased ROM, stiffness and swelling Associated symptoms: no back pain, no fatigue, no fever, no itching, no muscle weakness, no neck pain, no numbness in extremities and no paraparesis Risk factors PE/DVT: no recent prolonged travel, no recent immobilization, no surgery with the last4 weeks, no hemoptysis, no malignancy treatment past 6 months, no history of PE or DVT, no oral contraceptives, no smoking and no Risk factors: obesity and recent illness Risk factors: no concern for non-accidental trauma, no frequent fractures and no bone disorder Risk factors comment: Chronic end-stage liver disease PAST MEDICAL HISTORY REVIEWED MEDICAL: Patient has a past medical history of Cellulitis, Chronic hepatic failure (CMS/HCC), Hepatitis C, HTN (hypertension), and Liver cirrhosis (CMS/HCC). SURGICAL: Patient has a past surgical history that includes appendectomy; cholecystectomy; endometrial ablation; pr colonoscopy flx dx w/collj spec when pfrmd (N/A, 09/29/2023); and esophagogastroduodenoscopy (N/A, 09/29/2023). ALLERGIES Octreotide, Acetaminophen, Ibuprofen, and Nsaids (non-steroidal anti- inflammatory drug) PHYSICAL EXAM INITIAL VS BP: (!) 143/93 (10/15/24199), Heart Rate: 73 bpm (10/15/24199), Resp: 20 (10/15/24199), Pulse: 64 (10/15/24 0230), Temp: 97.7 ??F (36.5 ??C) (10/15/24199), Temp src: Temporal (10/15/24199),SpO2: 100 % (10/15/24199), Height: 5' 5 (165.1 cm) (10/15/24199), Weight: 98.2 kg (216 lb 9.6 oz) (10/15/24199), BMI (Calculated): (!) 36.03 (10/15/24199) No LMP recorded. Patient has had anablation. Physical Exam Vitals and nursing note reviewed. Home Health Billing Specialist present: Nursing in the room during examination.. Constitutional: General: She is not in acute distress. Appearance: Normal appearance. She is obese. She is ill-appearing. She is not toxic-appearing or diaphoretic. HENT: Head: Normocephalic and atraumatic. Mouth/Throat: Mouth: Mucous membranes are dry. Pharynx: Oropharynx is clear. No oropharyngeal exudate or posterior oropharyngeal erythema. Eyes: General: No scleral icterus. Right eye: No discharge. Left eye: No discharge. Extraocular Movements: Extraocular movements intact. Conjunctiva/sclera: Conjunctivae normal. Pupils: Pupils are equal, round, and reactive to light. Cardiovascular: Rate and Rhythm: Normal rate and regular rhythm. Pulses: Normal pulses. Heart sounds: Normal heart sounds. No murmur heard. No friction rub. No gallop. Pulmonary: Effort: No respiratory distress. Breath sounds: No stridor. No wheezing, rhonchi or rales. Comments: Poor inspiratory effort with decreased breath sounds at the bases. Chest: Chest wall: No tenderness. Abdominal: General: Abdomen is flat. There is distension. Palpations: Abdomen is soft. Tenderness: There is abdominal tenderness. There is no right CVA tenderness, left CVA tenderness orguarding. Comments: Significant abdominal distention. Generalized tenderness to palpation. Decreased bowel sounds throughout. Musculoskeletal: General: Swelling and tenderness present. No deformity or signs of injury. Normal range of motion. Cervical back: Normal range of motion and neck supple. No rigidity or tenderness. No muscular tenderness. Right lower leg: Edema present. Left lower leg: Edema present. Comments: 4 + pitting edema with weeping blisters noted bilaterally. Bilateral lower extremity tenderness to palpation. Lymphadenopathy: Cervical: No cervical adenopathy. Skin: Coloration: Skin is not jaundiced or pale. Findings: Erythema present. No bruising or lesion. Neurological: General: No focal deficit present. Mental Status: She is alert and oriented to person, place, and time. Motor: No weakness. Coordination: Coordination normal. Gait: Gait normal. DIAGNOSTICS LAB: CBC WITH DIFFERENTIAL - Abnormal Result Value WBC 5.5 RBC 4.44 HEMOGLOBIN 12.3 HEMATOCRIT 36.8 MCV 82.9 MCH 27.7 MCHC 33.4 RDW 14.8 (*) RDW-STDEV 44.7 PLATELETS 131 (*) MPV 11.4 NEUTROPHILS 62 LYMPHOCYTES 17 (*) MONOCYTES 17 (*) EOSINOPHILS 3 BASOPHILS 1 IMMATURE GRANULOCYTES 1 NEUTROPHIL ABSOLUTE 3.41 LYMPHOCYTE ABSOLUTE 0.93 (*) MONOCYTE ABSOLUTE 0.93 (*) EOSINOPHIL ABSOLUTE 0.15 BASOPHILS ABSOLUTE 0.05 IMMATURE GRANULOCYTES ABSOLUTE 0.03 COMPREHENSIVE METABOLIC PANEL - Abnormal SODIUM 134 (*) POTASSIUM 4.1 CHLORIDE 101 CO2 23 CALCIUM 8.8 BUN 20 CREATININE 1.51 (*) GLUCOSE 97 TOTAL PROTEIN 6.2 (*) ALBUMIN 2.8 (*) BILIRUBIN TOTAL 1.6 (*) ALKALINE PHOSPHATASE 105 (*) AST 61 (*) ALT 27 GFR 40 (*) ANION GAP 10 LIPASE - Abnormal LIPASE 98 (*) BRAIN NATRIURETIC PEPTIDE, BNP OR PROBNP - Abnormal PROBNP, N TERMINAL 1,727 (*) AMMONIA LEVEL - Abnormal AMMONIA 111.0 (*) URINALYSIS WITH REFLEX MICROSCOPIC - Abnormal COLOR UA Yellow CLARITY UA Slightly Cloudy (*) SPECIFIC GRAVITY UA 1.015 PH UA 6.0 LEUKOCYTE ESTERASE UA 2+ (*) NITRITE UA Negative PROTEIN UA 1+ (*) GLUCOSE UA Negative KETONES UA Negative UROBILINOGEN UA 1.0 BILIRUBIN UA 1+ (*) BLOOD UA 2+ (*) DRUG SCREEN, URINE - Abnormal CANNABINOIDS QUAL, URINE Negative PCP QUAL, URINE Negative COCAINE QUAL URINE Negative METHAMPHETAMINE QUAL, URINE Presumptive Positive (*) OPIATE QUAL, URINE Negative AMPHETAMINE QUAL, URINE Presumptive Positive (*) BENZODIAZEPINE QUAL, URINE Negative TRICYCLICS QUAL, URINE Negative METHADONE QUAL, URINE Negative BARBITURATE QUAL, URINE Negative OXYCODONE QUAL, URINE Negative URINALYSIS MICROSCOPY ONLY - Abnormal WBC UA >100 (*) RBC UA 3-5 (*) BACTERIA UA 2+ (*) EPITHELIAL CELLS, URINE 6-10 (*) MAGNESIUM LEVEL - Normal MAGNESIUM 2.0 ETHANOL LEVEL ETHANOL <10.10 ETHANOL % <0.01 RADIOLOGY: No orders to display EKG: PROCEDURES EKG Interpretation Date/Time: 10/15/2024 2:50 AM Performed by: Kodi Roman DO Authorized by: Kodi Roman DO ECG interpreted by ED Physician in the absence of a sole rougher: yes Rate: ECG rate: 68 ECG rate assessment: age appropriate Rhythm: Rhythm Origin: sinus Rhythm morphology: narrow Ectopy: Ectopy origin: PVCs [place]: QRS axis: Normal Intervals: prolonged QTC interval QRSTT: QRSTT changes: Yes Inferior (RCA) II, III, aVF: Q waves in III. Comments: Artifact noted MEDICAL DECISION MAKING AND PLAN OF CARE Medical Decision Making I discussed results with the patient including the positive drug test for methamphetamine/amphetamine. She denies that she uses methamphetamines and states she does not know how that got in there. Amount and/or Complexity of Data Reviewed Labs: ordered. Details: CBC, CMP, lipase, BNP, magnesium, ammonia, EtOH, urinalysis, urine drug screen Radiology: ordered. Details: Acute abdomen with chest x-ray: No acute process noted ECG/medicine tests: ordered and independent interpretation performed. Details: Normal sinus rhythm, rate 68, PVCs, Q-wave in lead III, normal axis, no specific ST/T wavechanges noted, artifact noted Discussion of management or test interpretation with external provider(s): Discussed with Dr. Paul, Hospitalist, [place], [place], who has kindly accepted this patient for admission Risk Decision regarding hospitalization. Clinical Scoring & Consults . New Prescriptions for this Encounter LAST VS BP: 112/64 (10/15/24 0500), Heart Rate: 64 bpm (10/15/24 0400), Resp: 18 (10/15/24 0500), Pulse: (!) 56 (10/15/24 0500), Temp: 97.7 ??F (36.5 ??C) (10/15/24 0200), Temp src: Temporal (10/15/24 0200),SpO2: 97 % (10/15/24 0500) CLINICAL IMPRESSION Final diagnoses: [B19.20, K74.69] Decompensated HCV cirrhosis (CMS/HCC) (Primary) [R18.8] Other ascites [R60.0] Bilateral lower extremity edema [K76.82] Hepatic encephalopathy (CMS/HCC) [F15.10] Methamphetamine abuse (CMS/HCC) [R82.90] Abnormal urinalysis - WBC > 100, + leukocyte esterase, however not a clean-catch DISPOSITION, EDUCATION AND MEDICATION RECONCILIATION Medications reconciled. See after visit summary for patient education on discharged patients. ED Disposition ED Disposition Transfer Condition Stable User Kodi Roman DO Date/Time Sun Oct 15, 2024 4:44 AM Comment -- ATTESTATION STATEMENTS Diagnoses Diagnosis Comment Added By Time Added Decompensated HCV cirrhosis (CMS/HCC) [B19.20, K74.69] Kodi Roman, 10/15/2024 4:19 AM Other ascites [R18.8] RomanKodi pineda [place], 10/15/2024 4:19 AM Bilateral lower extremity edema [R60.0] Darrick Romanannie Henriquez, DO 10/15/2024 4:20 AM Hepatic encephalopathy (CMS/HCC) [K76.82] RomanKodi, 10/15/2024 4:21 AM Methamphetamine abuse (CMS/HCC) [F15.10] Kodi Roman DO 10/15/2024 4:49 AM Abnormal urinalysis [R82.90] WBC > 100, + leukocyte esterase, however not a clean-catch Kodi Roman DO 10/15/2024 4:50 AM documented in this encounter Plan of Treatment Pending Results Name Type Priority Associated Diagnoses Date /Time URINE CULTURE Microbiology Stat 3:35 AM CDT Scheduled Orders Name Type Priority Associated Diagnoses Orde r Schedule URINE CULTURE Microbiology Stat ONE TIME COLLECT NOW for 1 Occurrences starting 10/15/2024 until 10/15/2024 documented as of this encounter Procedures Procedure Name Priority Date/Time Associated Diagnosis Comments URINALYSIS MICROSCOPY ONLY Stat 10/15/2024 3:35 AM CDT DRUG SCREEN, URINE Stat 10/15/2024 3: 35 AM CDT URINALYSIS W/REFLEX MICROSCOPIC Stat 10/15/2024 3:35 AM CDT XR ABDOMEN ACUTE SERIES W CXR Stat 10/15/2024 3:23 AM CDT EKG 12-LEAD Routine 10/15/2024 2:50 AM CDT CBC WITH DIFFERENTIAL Stat 10/15/2024 2:45 AM CDT BRAIN NATRIURETIC PEPTIDE, BNP OR PROBNP Stat 10/15/2024 2:45 AM CDT MAGNESIUM LEVEL Stat 10/15/2024 2:45 AM CDT LIPASE Stat 10/15/2024 2:45 AM CDT AMMONIA LEVEL Stat 10/15/2024 2:45 AM CDT ETHANOL LEVEL Stat 10/15/2024 2:45 AM CDT COMPREHENSIVE METABOLIC PANEL Stat 10/15/2024 2:45 AM CDT documented in this encounter Results * (ABNORMAL) URINALYSIS MICROSCOPY ONLY (10/15/2024 3:35 AM CDT) WBC UA >100(A) 0 - 2 /hpf 10/15/2024 3:49 AM CDT [facility] RBC UA 3-5(A) 0 - 2 /hpf 10/15/2024 3:49 AM CDT [facility] BACTERIA UA 2+(A) Negative /hpf 10/15/2024 3:49 AM CDT [facility] EPITHELIAL CELLS, URINE 6-10(A) 0 - 5 /hpf 10/15/2024 3:49 AM CDT [facility] Urine URINE SPECIMEN OBTAINED BY CLEAN CATCH PROCEDURE / Unknown Collection / Unknown 10/15/2024 3:35 AM CDT 10/15/2024 3:39 AM CDT us Kodi Y Jessie DO URINE ORDERABLES Final Result [facility] CLIA # [id number] [address] [place] [id number] * (ABNORMAL) DRUG SCREEN, URINE (10/15/2024 3:35 AM CDT) CANNABINOIDS QUAL, URINE Negative Negative 10/15/2024 3:53 AM CDT [facility] PCP QUAL, URINE Negative Negative 3:53 AM CDT [facility] COCAINE QUAL URINE Negative Negative 2024 3:53 AM T [facility] METHAMPHETAMINE QUAL, URINE Presumptive Positive(A) Negative 10/15/2024 3:53 AM CDT [facility] OPIATE QUAL, URINE Negative Negative 2024 3:53 AM T [facility] AMPHETAMINE QUAL, URINE Presumptive Positive(A) Negative 10/15/2024 3:53 AM T [facility] BENZODIAZEPINE QUAL, URINE Negative Negative 10/15/2024 3:53 AM [facility] TRICYCLICS QUAL, URINE Negative Negative 10/15/2024 3:53 AM T [facility] METHADONE QUAL, URINE Negative Negative 10/15/2024 3:53 AM T [facility] BARBITURATE QUAL, URINE Negative Negative 10/15/2024 3:53 AM [facility] OXYCODONE QUAL, URINE Negative Negative 10/15/2024 3:53 AM [facility] Urine URINE SPECIMEN OBTAINED BY CLEAN CATCH PROCEDURE / Unknown Collection / Unknown 10/15/2024 3:35 AM CDT 10/15/2024 3:39 AM CDT Narrative [facility] - 10/15/2024 3:53 AM CDT This test is a qualitative screen. The presumptive positive results should not be used for legal purposes. If confirmation of results is desired, the lab must be contacted without delay. Drug Screening Threshold Amphetamines 500 ng/mL Barbiturates 200 ng/mL Benzodiazepines 150 ng/mL Cocaine Metabolites 150 ng/mL Methamphetamine 500 ng/mL Methadone 200 ng/mL Opiates 100 ng/mL Oxycodone 100 ng/mL Phencyclidine 25 ng/mL THC Cannabinoids 50 ng/mL Tricyclic Antidepressants 300 ng/mL us Kodi Y Roman DO URINE ORDERABLES Final Result [facility] CLIA # [id number] [address] [place] [address] * (ABNORMAL) URINALYSIS WITH REFLEX MICROSCOPIC (10/15/2024 3:35 AM CDT) COLOR UA Yellow Pale to Dark Yellow 10/15/2024 3:49 AM CDT [facility] CLARITY UA Slightly Cloudy(A) Clear 10/15/2024 3:49 AM CDT [facility] SPECIFIC GRAVITY UA 1.015 1.003 - 1.035 10/15/2024 3:49 AM CDT [facility] PH UA 6.0 5.0 - 8.0 10/15/2024 3:49 AM CDT [facility] LEUKOCYTE ESTERASE UA 2+(A) Negative 10/15/2024 3:49 AM CDT [facility] NITRITE UA Negative Negative 10/15/2024 3:49 AM CDT [facility] PROTEIN UA 1+(A) Negative 10/15/2024 3:49 AM CDT [facility] GLUCOSE UA Negative Negative 10/15/2024 3:49 AM CDT [facility] KETONES UA Negative Negative 10/15/2024 3:49 AM T [facility] UROBILINOGEN UA 1.0 <2.0 mg/dL 3:49 AM T [facility] BILIRUBIN UA 1+(A) Negative 10/15/2024 3:49 AM T [facility] BLOOD UA 2+(A) Negative 10/15/2024 3:49 AM T [facility] Urine URINE SPECIMEN OBTAINED BY CLEAN CATCH PROCEDURE / Unknown Collection / Unknown 10/15/2024 3:35 AM CDT 10/15/2024 3:39 AM CDT us Kodi Y Roman DO URINE ORDERABLES Final Result [facility] CLIA # [id number] [address] [place] [id number] * XR ABDOMEN ACUTE SERIES 2+ VWS W CXR (10/15/2024 3:23 AM CDT) Anatomical Region Laterality Modality Abdomen Computed Radiogr aphy 10/15/2024 3:06 AM CDT Impressions 10/15/2024 7:23 AM CDT IMPRESSION: The cardiomediastinal structures are within normal limits. The lungs and pleural spaces are clear. The bowel gas pattern is nonspecific without definitive radiographic evidence of obstruction. No gross organomegaly, mass, free intraperitoneal air or discrete pathologic urinary tract calcifications are identified. Narrative 10/15/2024 7:23 AM CDT Exam: XR ABDOMEN ACUTE SERIES 2+ VWS W CXR Date/Time of Exam: 10/15/2024 3:23 AM Reason For Exam: Abdomen Distension. Diagnosis: See Reason for Exam. Comparison: None. Procedure Note Adolph Farrar MD - 10/15/2024 Exam: XR ABDOMEN ACUTE SERIES 2+ VWS W CXR Date/Time of Exam: 10/15/2024 3:23 AM Reason For Exam: Abdomen Distension. Diagnosis: See Reason for Exam. Comparison: None. IMPRESSION: The cardiomediastinal structures are within normal limits. The lungs and pleural spaces are clear. The bowel gas pattern is nonspecific without definitive radiographic evidence of obstruction. No gross organomegaly, mass, free intraperitoneal air or discrete pathologic urinary tract calcifications are identified. Kodi Roman DO DIAGNOSTIC IMAGING ORDERABLES Fi nal Result * EKG Interpretation (10/15/2024 2:50 AM CDT) Narrative Kodi Roman DO - 10/15/2024 2:50 AM CDT Kodi Roman DO 10/15/2024 5:44 AM EKG Interpretation Date/Time: 10/15/2024 2:50 AM Performed by: Kodi Roman DO Authorized by: Kodi Roman DO ECG interpreted by ED Physician in the absence of a sole rougher: yes Rate: ECG rate: 68 ECG rate assessment: age appropriate Rhythm: Rhythm Origin: sinus Rhythm morphology: narrow Ectopy: Ectopy origin: PVCs [place]: QRS axis: Normal Intervals: prolonged QTC interval QRSTT: QRSTT changes: Yes Inferior (RCA) II, III, aVF: Q waves in III. Comments: Artifact noted Kodi Roman DO ECG ORDERABLES Final Result * ETHANOL LEVEL (10/15/2024 2:45 AM CDT) ETHANOL <10.10 <10.10 mg/dL 10/15/2024 3:10 AM CDT [facility] ETHANOL % <0.01 %w/v 10/15/2024 3:10 AM CDT [facility] Blood Collection / Unknown 10/15/2024 2:45 AM CDT 10/15/2024 2:51 AM CDT Kodi Roman DO CHEMISTRY ORDERABLES Final Resul t Performing Organization Address [facility] Hospital/[facility] Co de Phone Number [id number] [address] [place] [phone] * (ABNORMAL) AMMONIA LEVEL (10/15/2024 2:45 AM CDT) AMMONIA 111.0(H) 11.0 - 51.0 umol/L 10/15/2024 3:14 AM CDT [facility] Blood, venous Collection / Unknown 10/15/2024 2:45 AM CDT 10/15/2024 2:51 AM CDT Kodi Roman DO CHEMISTRY ORDERABLES Final Resul t Performing Organization Address City/[facility]/ZIP Co de Phone Number [facility] CLIA # [id number] [address] [place] [phone] * MAGNESIUM LEVEL (10/15/2024 2:45 AM CDT) MAGNESIUM 2.0 1.6 - 2.6 mg/dL 10/15/2024 3:10 AM CDT [facility] Blood Collection / Unknown 10/15/2024 2:45 AM CDT 10/15/2024 2:51 AM CDT Kodi Y Roman DO CHEMISTRY ORDERABLES Final Resul t Performing Organization Address [facility] Co de Phone Number [facility] CLIA # [id number] [address] [place] [phone] * (ABNORMAL) BRAIN NATRIURETIC PEPTIDE, BNP OR PROBNP (10/15/2024 2:45 AM CDT) PROBNP, N TERMINAL 1,727(H) 0 - 125 pg/mL 10/15/2024 3:10 AM CDT [facility] Comment: INTERPRETIVE COMMENT based on diagnosis: Diagnostic NT pro-BNP cutoffs for Heart Failure in the absence of renal failure is suggested for the following ranges <75 years: <125 pg/mL >=75 years: <450 pg/mL Exclusionary rule out cut-point for Acute Decompensated Heart Failure(ADHF) All ages: <300 pg/mL Diagnostic NT pro-BNP cutoffs for Acute Decompensated Heart Failure(ADHF) in the absence of renal failure is suggested for the following ages <50 years: > 450 pg/mL 50-75 years: > 900 pg/mL >75 years: >1800 pg/mL Blood Collection / Unknown 10/15/2024 2:45 AM CDT 10/15/2024 2:51 AM CDT us Kodi Y Roman DO CHEMISTRY ORDERABLES Final Resul t [facility] CLIA # [id number] [address] [place] [phone] * (ABNORMAL) LIPASE (10/15/2024 2:45 AM CDT) LIPASE 98(H) 13 - 60 U/L 10/15/2024 3:10 AM CDT [facility] Blood Collection / Unknown 10/15/2024 2:45 AM CDT 10/15/2024 2:51 AM CDT us Kodi Y Jessie DO CHEMISTRY ORDERABLES Final Resul t [facility] CLIA # [id number] [address] [place] [phone] * (ABNORMAL) COMPREHENSIVE METABOLIC PANEL (10/15/2024 2:45 AM CDT) SODIUM 134(L) 136 - 145 mmol/L 10/15/2024 3:10 AM [facility] POTASSIUM 4.1 3.5 - 5.1 mmol/L 10/15/2024 3:10 AM [facility] CHLORIDE 101 98 - 107 mmol/L 10/15/2024 3:10 AM [facility] CO2 23 22 - 29 mmol/L 10/15/2024 3:10 AM [facility] CALCIUM 8.8 8.6 - 10.0 mg/dL 10/15/2024 3:10 AM [facility] BUN 20 6 - 20 mg/dL 10/15/2024 3:10 AM [facility] CREATININE 1.51(H) 0.51 - 0.95 mg/dL 10/15/2024 3:10 AM [facility] GLUCOSE 97 74 - 99 mg/dL 10/15/2024 3:10 AM [facility] TOTAL PROTEIN 6.2(L) 6.6 - 8.7 g/dL 10/15/2024 3:10 AM [facility] ALBUMIN 2.8(L) 3.5 - 5.2 g/dL 10/15/2024 3:10 AM [facility] BILIRUBIN TOTAL 1.6(H) 0.0 - 1.2 mg/dL 10/15/2024 3:10 AM [facility] ALKALINE PHOSPHATASE 105(H) 35 - 104 U/L 10/15/2024 3:10 AM [facility] AST 61(H) 0 - 35 U/L 10/15/2024 3:10 AM [facility] ALT 27 0 - 35 U/L 10/15/2024 3:10 AM [facility] GFR 40(L) >=60 mL/min/1.7 3 sq meter 10/15/2024 3:10 AM [facility] Comment:eGFR calculated with 2020 CKD-EPI equation. Vegetarian diet, extremely high or low muscle mass, and may affect results. Cystatin C with Glomerular Filtration Rate is a suitable alternative for these patients. ANION GAP 10 5 - 20 mmol/L 10/15/2024 3:10 AM [facility] Blood Collection / Unknown 10/15/2024 2:45 AM CDT 10/15/2024 2:51 AM CDT us Kodi Y Roman DO CHEMISTRY ORDERABLES Final Resul t [facility] CLIA # [id number] [address] [place] [phone] * (ABNORMAL) CBC WITH DIFFERENTIAL (10/15/2024 2:45 AM CDT) WBC 5.5 4.0 - 10.0 K/uL 10/15/2024 2:57 AM [facility] RBC 4.44 3.93 - 5.22 M/uL 10/15/2024 2:57 AM [facility] HEMOGLOBIN 12.3 11.2 - 15.7 g/dL 10/15/2024 2:57 AM [facility] HEMATOCRIT 36.8 34.1 - 44.9 % 10/15/2024 2:57 AM [facility] MCV 82.9 79.4 - 94.8 fL 10/15/2024 2:57 AM [facility] MCH 27.7 25.6 - 32.2 pg 10/15/2024 2:57 AM [facility] MCHC 33.4 32.2 - 35.5 g/dL 10/15/2024 2:57 AM [facility] RDW 14.8(H) 11.0 - 14.5 % 10/15/2024 2:57 AM [facility] RDW-STDEV 44.7 36.9 - 56.9 fL 10/15/2024 2:57 AM [facility] PLATELETS 131(L) 163 - 337 K/uL 10/15/2024 2:57 AM [facility] MPV 11.4 10.0 - 14.8 fL 10/15/2024 2:57 AM [facility] NEUTROPHILS 62 34 - 71 % 10/15/2024 2:57 AM [facility] LYMPHOCYTES 17(L) 19 - 52 % 10/15/2024 2:57 AM [facility] MONOCYTES 17(H) 5 - 13 % 10/15/2024 2:57 AM [facility] EOSINOPHILS 3 1 - 6 % 10/15/2024 2:57 AM [facility] BASOPHILS 1 0 - 1 % 10/15/2024 2:57 AM [facility] IMMATURE GRANULOCYTES 1 % 10/15/2024 2:57 AM [facility] NEUTROPHIL ABSOLUTE 3.41 1.56 - 6.13 K/uL 10/15/2024 2:57 AM [facility] LYMPHOCYTE ABSOLUTE 0.93(L) 1.20 - 3.40 K/uL 10/15/2024 2:57 AM [facility] MONOCYTE ABSOLUTE 0.93(H) 0.24 - 0.36 K/uL 10/15/2024 2:57 AM [facility] EOSINOPHIL ABSOLUTE 0.15 0.04 - 0.36 K/uL 10/15/2024 2:57 AM [facility] BASOPHILS ABSOLUTE 0.05 0.01 - 0.08 K/uL 10/15/2024 2:57 AM [facility] IMMATURE GRANULOCYTES ABSOLUTE 0.03 K/uL 10/15/2024 2:57 AM [facility] Blood Collection / Unknown 10/15/2024 2:45 AM CDT 10/15/2024 2:51 AM CDT us Kodi Y Roman DO HEMATOLOGY ORDERABLES Final Resu lt [facility] CLIA # [id number] [address] [place] [phone] documented in this encounter Visit Diagnoses Diagnosis Decompensated HCV cirrhosis (CMS/HCC)- Primary Chronic hepatitis C without mention of hepatic coma Decompensated HCV cirrhosis (CMS/HCC) Chronic hepatitis C without mention of hepatic coma Other ascites Bilateral lower extremity edema Edema Hepatic encephalopathy (CMS/HCC) Hepatic encephalopathy 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, unspecified Abnormal urinalysis Other nonspecific finding on examination of urine Bilateral lower extremity edema Edema Hepatic encephalopathy (CMS/HCC) Hepatic encephalopathy 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, unspecified Abnormal urinalysis Other nonspecific finding on examination of urine documented in this encounter Administered Medications Inactive Administered Medications - up to 3 most recent administrations Medication Order MAR Action Action Date Dose Rate Site furosemide (LASIX) injection 20 mg 20 mg, IV, ONE TIME ONLY, 1 dose, On 10/15/24 at 1145, Routine Given 10/15/2024 12:20 PM CDT 20 mg lactulose (ENULOSE) 10 gram/15 mL oral solution 15 mL 15 mL, Oral, ONE TIME ONLY, 1 dose, On 10/15/24 at 1145, Routine Given 10/15/2024 12:20 PM CDT 15 mL documented in this encounter Active and Recently Administered Medications Times are shown in CDT. Scheduled Medication Order 10/13/2024 10/14/2024 10/15/2024 furosemide (LASIX) injection 20 mg (COMPLETED) 20 mg, IV, ONE TIME ONLY, 1 dose, On 10/15/24 at 1145, Routine 1220 (Given - Provid er: Fede Hanson, DELFIN) lactulose (ENULOSE) 10 gram/15 mL oral solution 15 mL (COMPLETED) 15 mL, Oral, ONE TIME ONLY, 1 dose, On 10/15/24 at 1145, Routine 1220 (Given - Provid er: Fede Hanson LPN) documented in this encounter Care Teams Director Ehs Relationship Specialty Start Date End Date Estrella Gerard FNP [address] [place] [id number] PCP - General Nurse Practitioner Family 05/18/21 documented as of this encounter
--- OUTSIDE RECORDS SUMMARY | 2024-10-15 13:59 | XMS_ITS | Encounter Summary ---
Author Organization [facility] Address [address] Attn: [place] [address] Care Team Providers Care Railroad Track Inspector Name Role Phone Estrella Gerard Primary Care Provider [phone] Encounter Details Date Type Department Care Team (Latest Contact Info) Description 10/15/2024 Travel Social History Tobacco Use Types Packs/Day Years [...] on file documented as of this encounter Plan of Treatment Not on file documented as of this encounter Visit Diagnoses Not on filedocumented in this encounter Care Teams Railroad Track Inspector Relationship Specialty Start Date End Date Estrella Gerard FNP [address] [place] [address] PCP - General Nurse Practitioner Family 05/18/21 documented as of this encounter
--- OUTSIDE RECORDS SUMMARY | 2024-10-15 14:00 | XMS_ITS | Clinical Summary ---
Author Organization [facility] Address [address] [place] [address] Phone Care Team Providers Care Welfare Eligibility Interviewer Name Role Phone Unavailable Primary Care Provider Unavailabl e Medications No known medications Social History Tobacco Use Types Packs/Day Years Used Date Smoking Tobacco: Never Smokeless Tobacco: Never Alcohol Use Standard Drinks/Week Comments Not Currently 0 (1 standard drink = 0.6 oz pur e alcohol) Comments Unknown Sex and Gender Information Value Date Recorded Sex Assigned at Not on file Legal Sex Female 12:15 PM CDT Gender Identity Not on file Sexual Orientation Not on file Last Filed Vital Signs Vital Sign Reading Time Taken Comments Blood Pressure 145/72 08/30/2020 1:55 PM CDT Pulse - - Temperature 36.3 C (97.3 F) 08/30/2020 1:55 PM CDT Respiratory Rate 18 08/30/2020 1:55 PM CDT Oxygen Saturation 98% 08/30/2020 1:55 PM CDT Inhaled Oxygen Concentration - - Weight 94.7 kg (208 lb 12.4 oz) 021 12:22 PM CDT Height 162.6 cm (5' 4 ) 08/30/2020 12:2 2 PM CDT Body Mass Index 35.84 08/30/2020 12:22 PM CDT Plan of Treatment Health Maintenance Due Date Last Done Comments HEPATITIS B VACCINES (1 of 3 - 19+ 3-dose series) 11/1986 HPV/Cotest (21-29) 1988 CERVICAL CANCER SCREENING 1997 HPV/Cotest (30-65) 1997 PAP SMEAR 1997 BREAST CANCER SCREENING 2007 COLORECTAL SCREENING 2012 Colorectal Cancer Screening 2012 FIT-DNA Q 3 years 2012 FIT/FOBT Q 1 year 2012 Flex Sig/CT Colonography Q 5 years 2012 ZOSTER VACCINE (1 of 2) 2017 INFLUENZA VACCINE (#1) 2024 DTAP/TDAP/TD VACCINES (2 - Td or Tdap) 05/18/[address] [place] [place] [address] NETWORK
--- OUTSIDE RECORDS SUMMARY | 2024-10-15 14:00 | XMS_ITS | Clinical Summary ---
Author Organization [facility] Address [address] [facility] [address] [place] [address] Phone Care Team Providers Care Cavity Pump Operator Name Role Phone Ofe Gerardly Kingsley BENSON Primary Care Provider Allergies Active Allergy Reactions Criticality Noted Date Comments Acetaminophen Unknown 04/05/2024 Ibuprofen Other (See Comments) 10/08/2021 States not to take due cirrhosis of the liver Nsaids (Non-Steroidal Anti-Inflammatory Drug) Unknown 04/05/2024 Octreotide Anaphylaxis High 12/25/2023 Medications rifAXIMin (XIFAXAN) 550 mg Tablet Take 550 mg by mouth 2 times daily. Active FLUoxetine (PROzac) 20 mg capsule Take 20 mg by mouth daily. Active lactulose (ENULOSE) 10 gram/15 mL oral solution Take 10 Grams by mouth 1 time daily as needed. 5 Active nadoloL (CORGARD) 20 mg tablet Take 20 mg by mouth daily at bedtime. Active PARoxetine HCl (PAXIL) 20 mg tablet Take 40 mg by mouth daily. Active furosemide (LASIX) 40 mg tablet Take 80 mg by mouth daily. Active spironolactone (ALDACTONE) 50 mg tablet Take 200 mg by mouth daily. 5 Active lidocaine (lidocaine viscous 2%) 2 % SolutionIndicat ions:Stomatitis 5 mL by Mouth/Throat route every 6 hours as needed for Pain. 100 mL 5 Active triamcinolone acetonide (KENALOG) 0.5 % CreamIndication s:Dermatitis,Pr uritus Apply to affected area 2 times daily. 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 Bilateral lower extremity edema 10/15/2024 Hepatic encephalopathy 10/15/2024 Methamphetamine abuse 10/15/2024 Abnormal urinalysis 10/15/2024 Overview (10/15/2024): WBC > 100, + leukocyte esterase, however not a clean-catch Declined influenza vaccine 01/31/2024 Other ascites 12/24/2023 Secondary esophageal varices with bleeding 12/23 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) 12/24/2023 Cellulitis of left lower extremity without foot 12/02/2023 Acute bronchitis due to parainfluenza virus 12/2022 Resolved Problems Problem Noted Date Diagnosed Date Resolved Date Ulcer of right miramontes with fat layer exposed 04/13/2022 08/01/2024 Encounters Date Type Department Care Team Description 10/15/2024 2:15 AM CDT - 10/15/2024 12:55 PM CDT Emergency [facility] Emergency Medicine [address] [phone] Kodi Roman Y, DO Decompensated HCV cirrhosis (CMS/HCC) (Primary Dx); Other ascites; Bilateral lower extremity edema; Hepatic encephalopathy (CMS/HCC); Methamphetamine abuse (CMS/HCC); Abnormal urinalysis Discharge Disposition: Acute Care Hospital 10/15/2024 Travel 09/27/2024 Orders Only [address] [phone] Zuleyka Regalado, MARCELINO Anemia, unspecified type (Primary Dx) 09/26/2024 External Device Data [facility] ABSTRACTION Provider, Abstract 09/22/2024 Results Follow-Up [address] [phone] Zuleyka Regalado, MARCELINO BEBE SCREEN W/REFLEX, TSH, COMPREHENSIVE METABOLIC PANEL, Additional followed-up results: 5 09/20/2024 3:40 PM CDT Office Visit [facility] [address] [place] [address] Zuleyka Regalado, MARCELINO Stomatitis (Primary Dx); Dermatitis; Primary insomnia; Pruritus 09/20/2024 External Device Data ST[facility] ABSTRACTION Provider, Abstract 09/19/2024 External Device Data [facility] ABSTRACTION Provider, Abstract 08/14/2024 5:20 PM CDT Office Visit [address] [place] [phone] Tara Mckeon FNP History of falling (Primary Dx); Chest pain on breathing; Other ascites; 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); Secondary esophageal varices with bleeding ([facility]/HCC) 08/14/[address] [place] [phone] Tara Mckeon FNP Information 08/11/2024 10:41 AM CDT - 08/11/2024 11:59 PM CDT Hospital Encounter [facility] [address] [place] [phone] Estrella Gerard FNP Discharge Disposition: Home or Self Care 08/11/2024 10:40 AM CDT - 08/11/2024 11:59 PM CDT Hospital Encounter [facility] [address] [place] [phone] Estrella Gerard FNP Discharge Disposition: Home or Self Care 08/11/2024 Orders Only [facility] Admitting [address] [place] [phone] Estrella Gerard FNP Low back pain with sciatica, sciatica laterality unspecified, unspecified back pain laterality, unspecified chronicity (Primary Dx); Other chest pain 08/08/2024 External Device Data [facility] ABSTRACTION Provider, Abstract 08/08/2024 External Device Data [facility] ABSTRACTION Provider, Abstract 08/02/2024 Results Follow-Up [address] [phone] Breanna, Crystal Sridevi, PAINT SPRAYING MACHINE OPERATOR HELPER CBC WITH DIFFERENTIAL, COMPREHENSIVE METABOLIC PANEL, AMMONIA LEVEL 08/02/2024 Results Follow-Up [address] [phone] Francy Zurita NP XR ABDOMEN 1 VW 08/01/2024 3:42 PM CDT - 08/01/2024 11:59 PM CDT Hospital Encounter [facility] [address] [place] [phone] Francy Zurita NP Discharge Disposition: Home or Self Care 08/01/2024 2:40 PM CDT Office Visit [address] [phone] Francy Zurita NP Flank pain (Primary Dx); Screening mammogram, encounter for; Vaginal bleeding; Dizziness; Loss of balance; History of fall; 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); Secondary esophageal varices with bleeding (CMS/HCC) 08/01/[address] [phone] Francy Zurita NP Patient Communication 07/26/2024 10:00 AM CDT Office Visit [address] [phone] Breanna, Crystal Sridevi, PAINT SPRAYING MACHINE OPERATOR HELPER Vaginal bleeding (Primary Dx); Dizziness; Loss of balance; History of fall; 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) from Last 3 Months Immunizations Immunization Administration Dates Next Due (ADACEL/BOOSTRIX)(10 YR UP) TDAP VACCINE, 0.5ML, IM 05/18/2020 Adacel Vaccine > 7 Yo IM 05/18/2020 Influenza Seasonal Unspecified Formulation IM Family History Medical History Relation Name Comments Colon Cancer Neg Hx Social History Tobacco Use Types Packs/Day Years Used Date Smoking Tobacco: Never Smokeless Tobacco: Never Tobacco Cessation:Counseling Given: No Alcohol Use Standard Drinks/Week Comments Not Currently [...] Mass Index 36.04 10/15/2024 2:00 AM CDT Plan of Treatment Health Maintenance Due Date Last Done Comments Pre-Diabetes and Diabetes Screening 1967 HEPATITIS B VACCINES (1 of 3 - 19+ 3-dose series) 1986 HPV/Cotest (21-29) 1988 CERVICAL CANCER SCREENING 1997 HPV/Cotest (30-65) 1997 PAP SMEAR 1997 BREAST CANCER SCREENING 2007 FIT-DNA Q 3 years 2012 FIT/FOBT Q 1 year 2012 Flex Sig/CT Colonography Q 5 years 2012 ZOSTER VACCINE (1 of 2) 2017 INFLUENZA VACCINE (#1) 2024 , 01/31/2024, 01/31/2024 DTAP/TDAP/TD VACCINES (3 - T d or Tdap) 05/18/2030 05/18/2020, 05/18/2020 COLORECTAL SCREENING 09/28/2033 09/29/2023, 09/29/19 Colorectal Cancer Screening 09/28/2033 Procedures Procedure Name Priority Date/Time Associated Diagnosis Comments URINALYSIS MICROSCOPY ONLY Stat 10/15/2024 3:35 AM CDT DRUG SCREEN, URINE Stat 10/15/2024 3: 35 AM CDT URINALYSIS W/REFLEX MICROSCOPIC Stat 10/15/2024 3:35 AM CDT XR ABDOMEN ACUTE SERIES W CXR Stat 10/15/2024 3:23 AM CDT EKG 12-LEAD Routine 10/15/2024 2:50 AM CDT ETHANOL LEVEL Stat 10/15/2024 2:45 AM CDT AMMONIA LEVEL Stat 10/15/2024 2:45 AM CDT MAGNESIUM LEVEL Stat 10/15/2024 2:45 AM CDT BRAIN NATRIURETIC PEPTIDE, BNP OR PROBNP Stat 10/15/2024 2:45 AM CDT LIPASE Stat 10/15/2024 2:45 AM CDT COMPREHENSIVE METABOLIC PANEL Stat 10/15/2024 2:45 AM CDT CBC WITH DIFFERENTIAL Stat 10/15/2024 2:45 AM CDT VITAMIN B12 LEVEL Routine 09/20/2024 4:2 4 PM CDT Stomatitis CBC WITH DIFFERENTIAL Routine 09/20/2024 4:24 PM CDT Dermatitis COMPREHENSIVE METABOLIC PANEL Routine 09/20/2024 4:24 PM CDT Dermatitis TSH Routine 09/20/2024 4:24 PM CDT Dermatitis ALPHA-GAL PANEL Routine 09/20/2024 4:24 PM CDT Dermatitis CELIAC DISEASE ANTIBODIES Routine 09/20/2024 4:24 PM CDT Dermatitis ALLERGY PANEL, FOOD AND TREE NUTS W/COMP Routine 09/20/2024 4:24 PM CDT Dermatitis BEBE SCREEN W/REFLEX Routine 09/20/2024 4 :24 PM CDT Stomatitis Dermatitis Pruritus XR LUMBAR SPINE 2 OR 3 VW Routine 08/11/2024 11:36 AM CDT Low back pain with sciatica, sciatica laterality unspecified, unspecified back pain laterality, unspecified chronicity XR CHEST PA AND LATERAL 2 VW Routine 08/11/2024 11:36 AM CDT Other chest pain XR ABDOMEN 1 VW Routine 08/01/2024 4:05 PM CDT Flank pain COMPREHENSIVE METABOLIC PANEL Routine 08/01/2024 3:16 PM CDT Vaginal bleeding Dizziness Loss of balance History of fall CBC WITH DIFFERENTIAL Routine 08/01/2024 3:16 PM CDT Vaginal bleeding Dizziness Loss of balance History of fall AMMONIA LEVEL Routine 08/01/2024 3:16 PM CDT Vaginal bleeding Dizziness Loss of balance History of fall 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) POC URINALYSIS DIPSTICK AUTOMATED Routine 08/01/2024 2:50 PM CDT Flank pain COLONOSCOPY REPORT 09/29/2023 2: 57 PM CDT from Last 3 Months or Most Recently Relevant to Health Maintenance Results * (ABNORMAL) URINALYSIS MICROSCOPY ONLY (10/15/2024 3:35 AM CDT) WBC UA >100(A) 0 - 2 /hpf 10/15/2024 3:49 AM CDT [facility] RBC UA 3-5(A) 0 - 2 /hpf 10/15/2024 3:49 AM CDT [facility] BACTERIA UA 2+(A) Negative /hpf 10/15/2024 3:49 AM CDT [facility] EPITHELIAL CELLS, URINE 6-10(A) 0 - 5 /hpf 10/15/2024 3:49 AM CDT [facility] Urine URINE SPECIMEN OBTAINED BY CLEAN CATCH PROCEDURE / Unknown Collection / Unknown 10/15/2024 3:35 AM CDT 10/15/2024 3:39 AM CDT us Kodi Y Roman DO URINE ORDERABLES Final Result Performing Organization Address City/State/[facility] Co de Phone Number [facility] CLIA # [id number] [address] [place] [address] * (ABNORMAL) DRUG SCREEN, URINE (10/15/2024 3:35 AM CDT) CANNABINOIDS QUAL, URINE Negative Negative 10/15/2024 3:53 AM CDT [facility] PCP QUAL, URINE Negative Negative 3:53 AM CDT [facility] COCAINE QUAL URINE Negative Negative 2024 3:53 AM CDT [facility] METHAMPHETAMINE QUAL, URINE Presumptive Positive(A) Negative 10/15/2024 3:53 AM CDT [facility] OPIATE QUAL, URINE Negative Negative 2024 3:53 AM CDT [facility] AMPHETAMINE QUAL, URINE Presumptive Positive(A) Negative 10/15/2024 3:53 AM CDT [facility] BENZODIAZEPINE QUAL, URINE Negative Negative 10/15/2024 3:53 AM CDT [facility] TRICYCLICS QUAL, URINE Negative Negative 10/15/2024 3:53 AM CDT [facility] METHADONE QUAL, URINE Negative Negative 10/15/2024 3:53 AM CDT [facility] BARBITURATE QUAL, URINE Negative Negative 10/15/2024 3:53 AM CDT [facility] OXYCODONE QUAL, URINE Negative Negative 10/15/2024 3:53 AM T [facility] Urine URINE SPECIMEN OBTAINED BY CLEAN CATCH PROCEDURE / Unknown Collection / Unknown 10/15/2024 3:35 AM CDT 10/15/2024 3:39 AM CDT Narrative [facility] - 10/15/2024 3:53 AM CDT This [...] Y Roman DO URINE ORDERABLES Final Result [facility] CLIA # [id number] [address] [place] [address] * (ABNORMAL) URINALYSIS WITH REFLEX MICROSCOPIC (10/15/2024 3:35 AM CDT) COLOR UA Yellow Pale to Dark Yellow 10/15/2024 3:49 AM CDT [facility] CLARITY UA Slightly Cloudy(A) Clear 10/15/2024 3:49 AM T [facility] SPECIFIC GRAVITY UA 1.015 1.003 - 1.035 10/15/2024 3:49 AM T [facility] PH UA 6.0 5.0 - 8.0 10/15/2024 3:49 AM [facility] LEUKOCYTE ESTERASE UA 2+(A) Negative 10/15/2024 3:49 AM T [facility] NITRITE UA Negative Negative 10/15/2024 3:49 AM CDT [facility] PROTEIN UA 1+(A) Negative 10/15/2024 3:49 AM CDT [facility] GLUCOSE UA Negative Negative 10/15/2024 3:49 AM CDT [facility] KETONES UA Negative Negative 10/15/2024 3:49 AM CDT [facility] UROBILINOGEN UA 1.0 <2.0 mg/dL 3:49 AM CDT [facility] BILIRUBIN UA 1+(A) Negative 10/15/2024 3:49 AM CDT [facility] BLOOD UA 2+(A) Negative 10/15/2024 3:49 AM CDT [facility] Urine URINE SPECIMEN OBTAINED BY CLEAN CATCH PROCEDURE / Unknown Collection / Unknown 10/15/2024 3:35 AM CDT 10/15/2024 3:39 AM CDT us Kodi Y Roman DO URINE ORDERABLES Final Result [facility] CLIA # [id number] [address] [place] [address] * XR ABDOMEN ACUTE SERIES 2+ VWS [...] ED Physician in the absence of a state patrol officer: yes Rate: ECG rate: 68 ECG rate assessment: age appropriate Rhythm: Rhythm Origin: sinus Rhythm morphology: narrow Ectopy: Ectopy origin: PVCs [place]: QRS axis: Normal Intervals: prolonged QTC interval QRSTT: QRSTT changes: Yes Inferior (RCA) II, III, aVF: Q waves in III. Comments: Artifact noted Kodi Roman DO ECG ORDERABLES Final Result * (ABNORMAL) CBC WITH DIFFERENTIAL (10/15/2024 2:45 AM CDT) Only the most recent of3 resultswithin the time period is included. WBC 5.5 4.0 - 10.0 K/uL 10/15/2024 2:57 AM CDT [facility] RBC 4.44 3.93 - 5.22 M/uL 10/15/2024 2:57 AM CDT [facility] HEMOGLOBIN 12.3 11.2 - 15.7 g/dL 10/15/2024 2:57 AM CDT [facility] HEMATOCRIT 36.8 34.1 - 44.9 % 10/15/2024 2:57 AM [facility] MCV 82.9 79.4 - 94.8 fL 10/15/2024 2:57 AM [facility] MCH 27.7 25.6 - 32.2 pg 10/15/2024 2:57 AM [facility] MCHC 33.4 32.2 - 35.5 g/dL 10/15/2024 2:57 AM [facility] RDW 14.8(H) 11.0 - 14.5 % 10/15/2024 2:57 AM [facility] RDW-STDEV 44.7 36.9 - 56.9 fL 10/15/2024 2:57 AM [facility] PLATELETS 131(L) 163 - 337 K/uL 10/15/2024 2:57 AM [facility] MPV 11.4 10.0 - 14.8 fL 10/15/2024 2:57 AM [facility] NEUTROPHILS 62 34 - 71 % 10/15/2024 2:57 AM [facility] LYMPHOCYTES 17(L) 19 - 52 % 10/15/2024 2:57 AM [facility] MONOCYTES 17(H) 5 - 13 % 10/15/2024 2:57 AM [facility] EOSINOPHILS 3 1 - 6 % 10/15/2024 2:57 AM [facility] BASOPHILS 1 0 - 1 % 10/15/2024 2:57 AM [facility] IMMATURE GRANULOCYTES 1 % 10/15/2024 2:57 AM [facility] NEUTROPHIL ABSOLUTE 3.41 1.56 - 6.13 K/uL 10/15/2024 2:57 AM [facility] LYMPHOCYTE ABSOLUTE 0.93(L) 1.20 - 3.40 K/uL 10/15/2024 2:57 AM [facility] MONOCYTE ABSOLUTE 0.93(H) 0.24 - 0.36 K/uL 10/15/2024 2:57 AM [facility] EOSINOPHIL ABSOLUTE 0.15 0.04 - 0.36 K/uL 10/15/2024 2:57 AM CDT [facility] BASOPHILS ABSOLUTE 0.05 0.01 - 0.08 K/uL 10/15/2024 2:57 AM CDT [facility] IMMATURE GRANULOCYTES ABSOLUTE 0.03 K/uL 10/15/2024 2:57 AM CDT [facility] Blood Collection / Unknown 10/15/2024 2:45 AM CDT 10/15/2024 2:51 AM CDT us Kodi Y Roman DO HEMATOLOGY ORDERABLES Final Resu lt Performing Organization Address City/[facility]/ZIP Co de Phone Number [facility] CLIA # [id number] [address] [place] [phone] * (ABNORMAL) BRAIN NATRIURETIC PEPTIDE, BNP OR PROBNP (10/15/2024 2:45 AM CDT) PROBNP, N TERMINAL 1,727(H) 0 - 125 pg/mL 10/15/2024 3:10 AM CDT [facility] Comment: INTERPRETIVE COMMENT based on diagnosis: [...] Roman DO CHEMISTRY ORDERABLES Final Resul t [facility] CLIA # [id number] [address] [place] [address] * MAGNESIUM LEVEL (10/15/2024 2:45 AM CDT) MAGNESIUM 2.0 1.6 - 2.6 mg/dL 10/15/2024 3:10 AM CDT [facility] Blood Collection / Unknown 10/15/2024 2:45 AM CDT 10/15/2024 2:51 AM CDT us Kodi Y Jessie DO CHEMISTRY ORDERABLES Final Resul t Performing Organization Address [facility] de Phone Number [facility] CLIA # [id number] [address] [place] [address] * (ABNORMAL) LIPASE (10/15/2024 2:45 AM CDT) LIPASE 98(H) 13 - 60 U/L 10/15/2024 3:10 AM CDT [facility] Blood Collection / Unknown 10/15/2024 2:45 AM CDT 10/15/2024 2:51 AM CDT Kodi Y Jessie DO CHEMISTRY ORDERABLES Final Resul t Performing Organization Address [facility] de Phone Number [facility] CLIA # [id number] [address] [place] [address] * (ABNORMAL) AMMONIA LEVEL (10/15/2024 2:45 AM CDT) Only the most recent of2 resultswithin the time period is included. AMMONIA 111.0(H) 11.0 - 51.0 umol/L 10/15/2024 3:14 AM CDT [facility] Blood, venous Collection / Unknown 10/15/2024 2:45 AM CDT 10/15/2024 2:51 AM CDT Kodi Y Jessie DO CHEMISTRY ORDERABLES Final Resul t Performing Organization Address [facility]/ZIP Co de Phone Number [facility] CLIA # [id number] [address] [place] [address] * ETHANOL LEVEL (10/15/2024 2:45 AM CDT) ETHANOL <10.10 <10.10 mg/dL 10/15/2024 3:10 AM CDT [facility] ETHANOL % <0.01 %w/v 10/15/2024 3:10 AM CDT [facility] Blood Collection / Unknown 10/15/2024 2:45 AM CDT 10/15/2024 2:51 AM CDT us Kodi Y Jessie DO CHEMISTRY ORDERABLES Final Resul t Performing Organization Address [facility] Co de Phone Number [id number] [address] [place] [phone] * (ABNORMAL) COMPREHENSIVE METABOLIC PANEL (10/15/2024 2:45 AM CDT) Only the most recent of3 resultswithin the time period is included. SODIUM 134(L) 136 - 145 mmol/L 10/15/2024 3:10 AM [facility] POTASSIUM 4.1 3.5 - 5.1 mmol/L 10/15/2024 3:10 AM [facility] CHLORIDE 101 98 - 107 mmol/L 10/15/2024 3:10 AM T [facility] CO2 23 22 - 29 mmol/L 10/15/2024 3:10 AM [facility] CALCIUM 8.8 8.6 - 10.0 mg/dL 10/15/2024 3:10 AM [facility] BUN 20 6 - 20 mg/dL 10/15/2024 3:10 AM [facility] CREATININE 1.51(H) 0.51 - 0.95 mg/dL 10/15/2024 3:10 AM [facility] GLUCOSE 97 74 - 99 mg/dL 10/15/2024 3:10 AM [facility] TOTAL PROTEIN 6.2(L) 6.6 - 8.7 g/dL 10/15/2024 3:10 AM [facility] ALBUMIN 2.8(L) 3.5 - 5.2 g/dL 10/15/2024 3:10 AM [facility] BILIRUBIN TOTAL 1.6(H) 0.0 - 1.2 mg/dL 10/15/2024 3:10 AM [facility] ALKALINE PHOSPHATASE 105(H) 35 - 104 U/L 10/15/2024 3:10 AM [facility] AST 61(H) 0 - 35 U/L 10/15/2024 3:10 AM [facility] ALT 27 0 - 35 U/L 10/15/2024 3:10 AM [facility] GFR 40(L) >=60 mL/min/1.7 3 sq meter 10/15/2024 3:10 AM [facility] Comment:eGFR calculated with 2020 CKD-EPI equation. Vegetarian diet, extremely high or low muscle mass, and may affect results. Cystatin C with Glomerular Filtration Rate is a suitable alternative for these patients. ANION GAP 10 5 - 20 mmol/L 10/15/2024 3:10 AM [facility] Blood Collection / Unknown 10/15/2024 2:45 AM CDT 10/15/2024 2:51 AM CDT us Kodi Y Roman DO CHEMISTRY ORDERABLES Final Resul t [facility] CLIA # [id number] [address] [place] [address] * ALLERGY PANEL, FOOD AND TREE NUTS W/COMP (09/20/2024 4:24 PM CDT) ALLERGEN EGG WHITE <0.10 kU/L [facility] E[facility] WHITE CLASS 0 [facility] ALLERGEN PEANUT <0.10 kU/L [facility] ALLERGEN PEANUT CLASS 0 [facility] WHEAT IGE <0.10 kU/L [facility] ALLERGEN WHEAT CLASS 0 [facility] WALNUT IGE <0.10 kU/L [facility] ALLERGEN WALNUT CLASS 0 [facility] ALLERGEN CODFISH <0.10 kU/L [facility] ALLERGEN CODFISH CLASS 0 [facility] ALLERGEN MILK <0.10 kU/L [facility] ALLERGEN MILK CLASS 0 [facility] SOYBEAN IGE <0.10 kU/L [facility] ALLERGEN SOYBEAN CLASS 0 [facility] SHRIMP IGE <0.10 kU/L [facility] ALLERGEN SHRIMP CLASS 0 [facility] SCALLOP IGE <0.10 kU/L [facility] ALLERGEN SCALLOP CLASS 0 [facility] SESAME SEED IGE <0.10 kU/L [facility] ALLERGEN SESAME SEED CLASS 0 [facility] ALLERGEN HAZELNUT <0.10 kU/L [facility] ALLERGEN HAZELNUT CLASS 0 [facility] ALLERGEN CASHEW NUT <0.10 kU/L [facility] ALLERGEN CASHEW NUT CLASS 0 [facility] ALLERGEN ALMOND <0.10 kU/L [facility] ALLERGEN ALMOND CLASS 0 [facility] SALMON IGE <0.10 kU/L [facility] ALLERGEN SALMON CLASS 0 [facility] TUNA IGE <0.10 kU/L [facility] ALLERGEN TUNA CLASS 0 [facility] ALLERGEN BRAZIL NUT <0.10 kU/L [facility] BRAZIL NUT % RESPONSE (CLASS) 0 [facility] ALLERGEN MACADAMIA <0.10 kU/L [facility] ALLERGEN MACADAMIA CLASS 0 [facility] ALLERGY PANEL INTERP [facility] Comment: Specific Level of Allergen IGE Class kU/L Specific IGE Antibody ----- --------- 0 <0.10 Absent/Undetectable 0/1 0.10-0.34 Very Low Level 1 0.35-0.69 Low Level 2 0.70-3.49 Moderate Level 3 3.50-17.4 High Level 4 17.5-49.9 Very High Level 5 50-100 Very High Level 6 >100 Very High Level The clinical relevance of allergen results of 0.10-0.34 kU/L are undetermined and intended for specialist use. Allergens denoted with a include results using one or more analyte specific reagents. In those cases, the test was developed and its analytical performance characteristics have been determined by [facility]. It has not been cleared or approved by the [place]. Food and Drug Administration. This assay has been validated pursuant to the CLIA regulations and is used for clinical purposes. Test Performed at: [facility] [address] Yuriy Bridges MD Blood 09/20/2024 4:24 PM CDT 09/22/2024 5:11 AM CDT Zuleyka Regalado [facility] CHEMISTRY ORDERABLES Fin al Result [facility] [phone] [facility] [address] * ALPHA-GAL PANEL (09/20/2024 4:24 PM CDT) ALLERGEN BEEF <0.10 kU/L [facility], ALLERGEN BEEF ([id number]) CLASS 0 [facility] [facility] [place] ([id number]) IGE <0.10 kU/L [facility] [facility], ALLERGEN [place] ([id number]) CLASS 0 [facility] Diagnostics/N [facility], ALLERGEN PORK <0.10 kU/L [facility], ALLERGEN PORK (F26) CLASS 0 [facility], GALACTOSE - ALPHA -1, 3 - GALACTOSE, IGE <0.10 <0.10 kU/L [facility], Comment: Results above 0.1 kU/L indicate an allergen-specific IgE sensitization to qjhxwqvzd-u-8,3-galactose, and such patients are at risk for delayed allergic reactions following beef, pork, or ribera consumption. Circulating IgE antibodies may remain undetectable despite a convincing clinical history because these antibodies may be directed towards allergens revealed or altered during industrial processing, cooking, or digestion and therefore do not exist in the original food for which the patient is tested. Sometimes individuals diagnosed with chronic urticaria may develop IgE antibodies directed against human thyroglobulin. Such antibodies may cross-react with the bovine thyroglobulin used in ImmunoCAP(R) Allergen o215, alpha-Gal, leading to a false-positive test result. A definitive diagnosis should be based on the evaluation of both clinical and laboratory findings and not on any single diagnostic method. Additional information can be found at [email or web address] Test Performed at: [facility], [address] [place] [address] Lisa Jeter MD,PhD,[place] Blood 09/20/2024 4:24 PM CDT 09/22/2024 5:11 AM CDT Zuleyka Regalado [facility] CHEMISTRY ORDERABLES Fin al Result [facility] [phone] [facility], [address] [place] [address] * (ABNORMAL) CELIAC DISEASE ANTIBODIES (09/20/2024 4:24 PM CDT) CELIAC SEROLOGY INTERP [facility] Comment: No serological evidence for celiac disease is present. tTg may normalize in individuals with celiac disease who maintain a gluten free diet. If high suspicion of celiac disease, consider HLA DQ2 and DQ8 testing to rule out celiac disease. TRANSGLUTAMINASE IGA AB <1.0 U/mL [facility] Comment: Value Interpretation ----- <15.0 Antibody not detected > or = 15.0 Antibody detected IGA 400(H) 47 - 310 mg/dL [facility] Comment: Test Performed at: [facility] [address] [place] [address] Alberto Leobardo Humphrey Blood 09/20/2024 4:24 PM CDT 09/22/2024 5:11 AM CDT Zuleyka Regalado [facility] CHEMISTRY ORDERABLES Fin al Result [facility] [phone] [facility] [place] [address] [place] [address] * BEBE SCREEN W/REFLEX (09/20/2024 4:24 PM CDT) BEEB SCREEN NEGATIVE NEGATIVE [facility] [place] Comment: BEBE IFA is a first line screen for detecting the presence of up to approximately 150 autoantibodies in various autoimmune diseases. A negative BEBE IFA result suggests an BEBE-associated autoimmune disease is not present at this time, and does not reflex further. If there is high clinical suspicion for Sjogren's syndrome, testing for anti-SS-A/Ro antibody should be considered. Anti-Rachael-1 antibody should be considered for clinically suspected inflammatory myopathies. AC-0: Negative International Consensus on BEBE Patterns (https://doi.org/10.1515/ergl-2159-1267) For additional information, please refer to http://education.Iunika/faq/IYV624 (This link is being provided for informational/ educational purposes only.) Test Performed at: [facility] [address] [facility] [place] [address] Yuriy Bridges MD Blood 09/20/2024 4:24 PM CDT 09/22/2024 5:11 AM CDT Zuleyka Regalado [facility] CHEMISTRY ORDERABLES Fin al Result [facility] [phone] [facility] [address] [place] [address] * TSH (09/20/2024 4:24 PM CDT) Pathologist [facility] TSH 1.43 0.40 - 4.50 mIU/L [facility] Comment: Test Performed at: [facility] [address] [place] [address] Yuriy Bridges MD Blood 09/20/2024 4:24 PM CDT 09/22/2024 5:11 AM CDT Zuleyka Regalado [facility] CHEMISTRY ORDERABLES Fin al Result Performing Organization Address City/[facility]/ZIP Co de Phone Number [facility] [phone] [facility] [address] [place], [place] [address] [address] * VITAMIN B12 LEVEL (09/20/2024 4:24 PM CDT) Pathologist [facility] VITAMIN B12 461 200 - 1100 pg/mL [facility] Comment: Test Performed at: [facility] [address] [facility] [place] [address] Yuriy Bridges MD Blood 09/20/2024 4:24 PM CDT 09/22/2024 5:11 AM CDT Zuleyka Regalado [facility] CHEMISTRY ORDERABLES Fin al Result [facility] [phone] [facility] [address] [place] [address] * XR LUMBAR SPINE 2 OR 3 VW (08/11/2024 11:36 AM CDT) Anatomical Region Laterality Modality Spine Computed Radiogr aphy 08/11/2024 11:3 6 AM CDT Impressions 08/13/2024 9:54 AM CDT IMPRESSION: L4 superior endplate compression fracture with mild height loss is chronic. Grade 1 anterolisthesis of L4 on L5 and L5 on S1. Lumbar spine degenerative changes with preserved intervertebral disc heights. Remainder unremarkable. Narrative 08/13/2024 9:54 AM CDT Exam: Radiographs: XR LUMBAR SPINE 2 OR 3 VW Indication: Low back pain with sciatica, sciatica laterality unspecified, unspecified back pain laterality, unspecified chronicity Comparison: CT scan dated 04/05/2024 Procedure Note Meño Grace MD - 08/13/2024 Exam: Radiographs: XR LUMBAR SPINE 2 OR 3 VW Indication: Low back pain with sciatica, sciatica laterality unspecified, unspecified back pain laterality, unspecified chronicity Comparison: CT scan dated 04/05/2024 IMPRESSION: L4 superior endplate compression fracture with mild height loss is chronic. Grade 1 anterolisthesis of L4 on L5 and L5 on S1. Lumbar spine degenerative changes with preserved intervertebral disc heights. Remainder unremarkable. Estrella Gerard PAINT SPRAYING MACHINE OPERATOR HELPER DIAGNOSTIC IMAGING ORDERABL ES Final Result * XR CHEST PA AND LATERAL 2 VW (08/11/2024 11:36 AM CDT) Anatomical Region Laterality Modality Chest Computed Radiogr aphy 08/11/2024 11:3 6 AM CDT Impressions 08/11/2024 12:19 PM CDT Impression: The cardiomediastinal structures are within normal limits. No pulmonary consolidation, pleural effusion or pneumothorax is identified. The osseous structures appear grossly intact. Narrative 08/11/2024 12:19 PM CDT Exam: XR CHEST PA AND LATERAL 2 VW Date/Time of Exam: 08/11/2024 11:36 AM Reason For Exam: See Diagnosis. Diagnosis: Other chest pain. Comparison: January 31, 2024. Procedure Note Adolph Farrar MD - 08/11/2024 Exam: XR CHEST PA AND LATERAL 2 VW Date/Time of Exam: 08/11/2024 11:36 AM Reason For Exam: See Diagnosis. Diagnosis: Other chest pain. Comparison: January 31, 2024. Impression: The cardiomediastinal structures are within normal limits. No pulmonary consolidation, pleural effusion or pneumothorax is identified. The osseous structures appear grossly intact. Estrella Wynn [place] PAINT SPRAYING MACHINE OPERATOR HELPER DIAGNOSTIC IMAGING ORDERABL ES Final Result * XR ABDOMEN 1 VW (08/01/2024 4:05 PM CDT) Anatomical Region Laterality Modality Abdomen Computed Radiogr aphy 08/01/2024 4:06 PM CDT Impressions 08/01/2024 7:55 PM CDT IMPRESSION: No radiographic evidence of an acute intra-abdominal process. Renal shadows are largely obscured by stool and bowel gas, not well-imaged were assessed. The patient had a nonobstructing left lower pole calculus on prior CT it is not well seen on today's exam. Narrative 08/01/2024 7:55 PM CDT EXAM: XR ABDOMEN 1 VW DATE/TIME OF EXAM: 08/01/2024 4:05 PM REASON FOR STUDY: See Diagnosis DIAGNOSIS: Flank pain COMPARISON: CT 04/05/2024 FINDINGS: Non-specific bowel gas pattern. Mild retained colonic stool. Surgical clips overlie the right upper abdominal quadrant. No evidence of pneumoperitoneum. Renal shadows obscured by stool and bowel gas. No obvious renal calculi. No acute bony finding. Mild bilateral hip joint space narrowing. Degenerative changes are noted in the spine and both hips. Included lung bases appear clear. Procedure Note Isabell Benoit MD - 08/01/2024 EXAM: XR ABDOMEN 1 VW DATE/TIME OF EXAM: 08/01/2024 4:05 PM REASON FOR STUDY: See Diagnosis DIAGNOSIS: Flank pain COMPARISON: CT 04/05/2024 FINDINGS: Non-specific bowel gas pattern. Mild retained colonic stool. Surgical clips overlie the right upper abdominal quadrant. No evidence of pneumoperitoneum. Renal shadows obscured by stool and bowel gas. No obvious renal calculi. No acute bony finding. Mild bilateral hip joint space narrowing. Degenerative changes are noted in the spine and both hips. Included lung bases appear clear. IMPRESSION: No radiographic evidence of an acute intra-abdominal process. Renal shadows are largely obscured by stool and bowel gas, not well-imaged were assessed. The patient had a nonobstructing left lower pole calculus on prior CT it is not well seen on today's exam. Francy Zurita SHANK FAKER DIAGNOSTIC IMAGING ORDERABLES Final Result * (ABNORMAL) POC URINALYSIS DIPSTICK AUTOMATED (08/01/2024 2:50 PM CDT) COLOR UA POC Yellow Pale to Dark Yellow [facility] CLARITY UA POC Clear Clear, Other [facility] GLUCOSE UA POC Negative Negative, Normal [facility] BILIRUBIN UA POC Negative Negative [facility] KETONES UA POC Negative Negative [facility] SPECIFIC GRAVITY UA POC 1.015 1.000 - 1.030 [facility] BLOOD UA POC 3+(A) Negative [facility] C [facility] PH UA POC 6.0 5.0 - 8.0 [facility] IC [facility] PROTEIN UA POC Negative Negative [facility] UROBILINOGEN UA POC >8.0(A) <2.0 mg/dL [facility] NITRITE UA POC Negative Negative [facility] LEUKOCYTE ESTERASE UA POC 1+(A) Negative [facility] KIT LOT NUMBER POC [phone] [facility] KIT EXP DATE POC [id number] [facility] Urine 08/01/2024 2:50 PM CDT Francy Zurita SHANK FAKER POINT OF CARE TESTING Final Re sult [facility] CLIA# [id number] [address] [place] [address] * COLONOSCOPY REPORT (09/29/2023 2:57 PM CDT) Narrative Procedure Note Steven Francis MD - 09/29/2023 2:57 PM CDT [facility] GI Patient Name: Sandy Ernandez Procedure Date: 09/29/2023 Date of : 1965 Admit Type: Outpatient Age: 58 Attending MD: Steven Francis MD, Procedure: Colonoscopy Indications: chronic diarrhea Providers: Steven Francis MD Referring MD: Estrella Gerard NP Medicines: Monitored Anesthesia Care Complications: No immediate complications. Procedure: Pre-Anesthesia Assessment: - Prior to the procedure, a History and Physical was performed, and patient medications, allergies and sensitivities were reviewed. The patient's tolerance of previous anesthesia was reviewed. - The risks and benefits of the procedure and the sedation options and risks were discussed with the patient. All questions were answered and informed consent was obtained. After I obtained informed consent, the scope was passed under direct vision. Throughout the procedure, the patient's blood pressure, pulse, and oxygen saturations were monitored continuously. The Colonoscope was introduced through the anus and advanced to the terminal ileum. The entire colon was examined. Estimated Blood Loss: Estimated blood loss was minimal. Findings: A few small-mouthed diverticula were found in the sigmoid colon. There was no evidence of diverticular bleeding. Non-bleeding internal hemorrhoids were found. The hemorrhoids were Grade I (internal hemorrhoids that do not prolapse). The terminal ileum appeared normal. There is no endoscopic evidence of inflammation in the entire colon. Biopsies for histology were taken with a cold forceps from the right colon and left colon for evaluation of microscopic colitis. Impression: - Diverticulosis in the sigmoid colon. There was no evidence of diverticular bleeding. - Non-bleeding internal hemorrhoids. - The examined portion of the ileum was normal. - Otherwise unremarkable colon mucosa, biopsied rule out microscopic colitis Recommendation: Await pathology Steven Francis MD 09/29/2023 2:57:34 PM Number of Addenda: 0 Note Initiated On: 09/29/2023 1:13 PM Scope Withdrawal Time 0 hours 8 minutes 3 seconds Scope In: 2:39:39 PM Scope Out: 2:52:28 PM [address] [place], [place] Steven Francis MD GI PROCEDURE ORDERABLES F inal Result from Last 3 Months or Most Recently Relevant to Health Maintenance Insurance [facility] MEDICAID Advance Directives For more information, please contact: [phone] * Full Code (Latest Code Status on File) Date Activated Date Inactivated Comments 09/29/2023 1:00 PM 09/29/2023 5:24 PM Care Teams Cavity Pump Operator Relationship Specialty Start Date End Date Estrella Gerard FNP [address] [place] [id number] PCP - General Nurse Practitioner Family 05/18/21
--- OUTSIDE RECORDS SUMMARY | 2024-10-15 14:00 | XMS_ITS | Encounter Summary ---
Author Organization [facility] Address [address] [place] [address] Care Team Providers Care Director Of Search Engine Marketing Name Role Phone Estrella Gerard [facility] Primary Care Provider [phone] Reason for Visit * Reason Onset Date Comments Results 09/22/2024 Patient Communication Encounter Details Date Type Department Care Team (Latest Contact Info) Description 09/22/2024 Results Follow-Up [facility] Medicine [place] [address] [address] Zuleyka Regalado, [facility] [address] [address] BEBE SCREEN W/REFLEX, TSH, COMPREHENSIVE METABOLIC PANEL, Additional followed-up results: 5 Social History Tobacco Use Types Packs/Day Years Used Date Smoking Tobacco: Never Smokeless Tobacco: Never Alcohol Use Standard Drinks/Week Comments Not Currently 0 (1 standard drink = 0.6 oz pur e alcohol) Feeling Safe Answer Date Recorded Are you in a relationship wi th someone who hurts you emotionally and/or physically? No 04/05/2024 Comments No Sex and Gender Information Value Date Recorded Sex Assigned at Not on file Legal Sex Female 10:22 PM CDT Gender Identity Not on file Sexual Orientation Not on file documented as of this encounter Miscellaneous Notes * Telephone Encounter - Martha Martinez RN - 09/27/2024 3:20 PM CDT 09/27/2024 3:20 PM Called and notified patient of results. Voiced understanding. She denies every seeing hematology but is agreeable to going to [place] for referral. She states that she did have a colonoscopy and EGD in September of 2023. Martha RN * Telephone Encounter - Martha Martinez RN - 09/27/2024 8:49 AM CDT 09/27/2024 8:49 AM No answer. No voicemail or answering machine. Will continue to try to reach patient/caregiver. . Ifpatient/caregiver calls back, contact center please inform caller to expect a return call from the clinic. Nurse is unable to leave results on voicemail, please ask when she would be available for a call to discuss results. Martha RN * Telephone Encounter - Martha Martinez RN - 09/26/2024 10:36 AM CDT 09/26/2024 10:36 AM No answer. No voicemail or answering machine. Will continue to try to reach patient/caregiver. . Ifpatient/caregiver calls back, contact center please inform caller to expect a return call from the clinic. Nurse is unable to leave results on voicemail, please ask when she would be available for a call to discuss results. Martha RN * Telephone Encounter - Yves Murphy - 09/26/2024 10:07 AM CDT Copied from [facility] #[id number]. Topic: CPA Information Request >> Sep 26, 2024 10:04 AM Yves Beauchamp wrote: Caller is returning phone call from clinic. Caller Name: Sandy Ernandez Patient/Caregiver Callback Number: [phone] (mobile) Clinic Left Note In Chart Is there a note from the clinic requesting the caller be transferred when they call back? No Are the credentials of the caregiver who called the patient repair armature winder helper? Yes Call Notes: Communicated information that is documented in the note. Caller wants a call back from clinic. She states that she may be unable to answer the phone but to please leave a voicemail. * Telephone Encounter - Martha Martinez RN - 09/26/2024 9:00 AM CDT 09/26/2024 9:00 AM No answer. Left voice mail/message that patient/caregiver can return our call. If patient/caregivercalls back, contact center please inform caller to expect a return call from the clinic. Martha REESE * Telephone Encounter - Martha Mratinez RN - 09/26/2024 9:00 AM CDT ----- Message from Zuleyka Regalado sent at 09/25/2024 2:39 PM CDT ----- Alpha gal is negative. * Telephone Encounter - Martha Martinez RN - 09/25/2024 10:34 AM CDT 09/25/2024 10:34 AM 09/22/2024 3:36 PM No answer. No voicemail or answering machine. Will continue to try to reach patient/caregiver. . Ifpatient/caregiver calls back, contact center please inform caller to expect a return call from the clinic. Martha REESE * Telephone Encounter - Martha Martinez RN - 09/25/2024 10:34 AM CDT ----- Message from Zuleyka Regalado sent at 09/24/2024 7:26 AM CDT ----- Food allergy panel is negative. Still awaiting celiac and alpha gal allergy panels. * Telephone Encounter - Martha Martinez RN - 09/22/2024 3:36 PM CDT 09/22/2024 3:36 PM No answer. No voicemail or answering machine. Will continue to try to reach patient/caregiver. . Ifpatient/caregiver calls back, contact center please inform caller to expect a return call from the clinic. Martha REESE * Telephone Encounter - Martha Martinez RN - 09/22/2024 3:36 PM CDT ----- Message from Zuleyka Regalado sent at 09/22/2024 3:30 PM CDT ----- Electrolytes are in normal range. Liver function is in normal range. Kidney function is in normal range. Total protein is low. Increase protein in diet and begin daily protein shakes. Platelets are low and have been chronically. You also have a low white blood cell count. Have you ever seen hematology for this? If not I would like to place a referral. Autoimmune marker is low. Thyroid is in normal range. Vitamin B is in normal range. documented in this encounter Plan of Treatment Not on file documented as of this encounter Visit Diagnoses Not on filedocumented in this encounter Care Teams Director Of Search Engine Marketing Relationship Specialty Start Date End Date Estrella Gerard FNP [address] [place] [id number] PCP - General Nurse Practitioner Family 05/18/21 documented as of this encounter
[2024-10-15 14:12] VITALS: BMI 36.0
[2024-10-15 14:15] VITALS: PULSE 58
--- NOTE | 2024-10-15 14:37 | PM.HP ---
Providers/Chief Complaint Admitting Physician: Sarita Paul MD Primary Care Provider: MARCELINO Rodrigez Chief Complaint: hepatic encephalopathy. decompensated cirrhosis History of Present Illness Sandy Ernandez is a 59 year old female with a past medical history of liver cirrhosis, history of recurrent ascites, history of hepatitis C, history of hepatic encephalopathy history of methamphetamine use, who presents to [facility] as a transfer from [facility] due to increased bilateral extremity edema, and complaints of increased abdominal distention. Currently patient alert oriented x 3, following all commands, she reports increased shortness of breath, increased weight gain, bilateral extremity pitting edema weeping edema over the last few days, she missed her paracentesis about 2 weeks ago does also report increased abdominal distention, abdominal tenderness, no nausea, no vomiting, no diarrhea, no fevers, no chills, no lightheadedness, dizziness, emesis in [place] she has noted to have an ammonia level 111, UA with evidence of UTI, sodium 134, creatinine 1.5, albumin 2.8, bicarb 23, lipase 98, BNP 1700, urine positive for methamphetamines, given 20 mg IV push Lasix and given 10 g of lactulose, Review of Systems Const: Reports: fatigue and malaise; Denies: fever(s) or chills Card: Denies: chest pain Resp: Reports: dyspnea GI: Reports: abdominal pain : Denies: flank pain Medications/Allergies Home Medications ?Medication ?Instructions ?Recorded ?Confirmed ?Last Taken ?Type rifaximin 550 mg tablet (Xifaxan) 550 mg PO BID 12/10/23 10/15/24 10/14/24 History nadolol 20 mg tablet 20 mg PO BEDTIME 06/13/24 10/15/24 10/14/24 History lactulose 10 gram/15 mL oral 15 ml PO DAILY PRN Constipation 08/14/24 10/15/24 10/15/24 History solution (Constulose) spironolactone 25 mg tablet 25 mg PO DAILY 09/05/24 10/15/24 10/14/24 History hydroxyzine HCl 50 mg tablet 50 mg PO QID PRN for sleep or 10/10/24 10/15/24 10/14/24 Rx panic attack #120 tabs 50 paroxetine HCl 40 mg tablet 40 mg PO DAILY #30 tabs 10/10/24 10/15/24 10/14/24 Rx Allergies Allergy/AdvReac Type Severity Reaction Status Date / Time tramadol Allergy ADR-Nausea Verified 10/10/24 16:13 NSAIDS (Non-Steroidal AdvReac Unknown Verified 10/10/24 16:13 Anti-Inflamma PFSH Acute PFSH: Medical History Enterococcus UTI Thrombocytopenia S/P abdominal paracentesis COVID-19 Breast lump Screening breast examination Screening for cervical cancer Calculus of kidney Abnormal CT of the abdomen Screening for osteoporosis Elevated TSH Psychiatric care Cellulitis Cellulitis of leg, right COVID-19 Hepatitis C Family History Mother Hypertension Family/Other Hypertension Denies family history of Diabetes CAD (coronary artery disease) Cancer Social History Smoking and tobacco/nicotine status: never used tobacco/nicotine Second hand smoke exposure: Yes Alcohol intake: former Former alcohol use details: 25 years ago Substance/Drug Use: former Former substance use details: 5-6 years ago Adopted: No Caregiver/support person: No Lives independently: Yes Household members: friend(s) Housing: House Marital status: Marital status details: while in long-term, never met him outside of long-term Number of children: 2 Number of grandchildren: 5 Highest education level completed: Some College, No Degree service: No Current occupational status: disabled Current occupation: working on getting disability Current occupational exposures/hazards: No Pets and animals: Yes Pets & animals: dog(s) Leisure activites: other Leisure activities details: watch movies and play with grand kids Sexually active: No Do you think of yourself as: Straight/Heterosexual Current gender identity: Female Lauren/Yazidism: Scientology Special lauren needs: No Agree to transfusion: Yes Female Reproductive History: Para: 2 Vitals/I&O/Wt Weight last 48 hrs Weight 98.231 kg Physical Exam Const: COMMON NORMALS: no acute distress and patient oriented x3 HENMT: COMMON NORMALS: normocephalic HEAD & SCALP: normocephalic Eye: COMMON NORMALS: Equal, round and reactive pupils present Resp: COMMON NORMALS: normal respiratory effort, No retractions, No use of accessory muscles and clear to auscultation bilaterally AUSCULTATION: crackles Cardio: COMMON NORMALS: no JVD, regular rate, regular rhythm, S1 normal heart sound present and S2 normal heart sound present RATE: regular rate RHYTHM: regular rhythm HEART SOUNDS: S1 normal heart sound present and S2 normal heart sound present GI: OTHER: Abdomen soft, distended, fluid wave present, no guarding, rebound, rigidity Extremity: NARRATIVE EXTREMITY EXAM: 3+ pitting edema bilateral extremity, weeping edema OTHER: She has multiple superficial excoriation, with superficial areas of erythema Neuro: COMMON NORMALS: patient oriented x3, CN's II-XII intact bilaterally and moves all extremities Psych: COMMON NORMALS: mental status grossly normal A&P Assessment and plan 1. Acute exacerbation of congestive heart failure: 2. Edema of both legs: 3. Abdominal ascites: 4. Thrombocytopenia: 5. CODY (acute kidney injury): 6. Cellulitis: 7. UTI (urinary tract infection): 8. Transaminitis: 9. Shortness of breath: Plan: Acute diastolic CHF exacerbation, fluid overload, pulmonary edema, bilateral extremity edema - With liver cirrhosis, hyperammonemia Plan - Fluid restrictions of 1000 cc - Lasix 40 IV twice daily - With albumin therapy - With potassium therapy - Patel catheter Abdominal ascites - Paracentesis ordered Bilateral primary cellulitis - Vancomycin - Cefepime History of Enterococcus UTI, with UTI - Antibiotics as above Methamphetamine use, urine toxicology positive for methamphetamines Liver cirrhosis History of hepatitis C Hepatic encephalopathy, continue Xifaxan, continue lactulose, monitor ammonia levels Full code Lovenox for DVT prophylaxis PDMP PDMP Reviewed: Not Reviewed Attestations Medical Necessity Statement*: Patient requires hospitalization, inpatient, greater than 2 midnights for diastolic CHF exacerbation, fluid overload, ascites, cellulitis, UTI Diagnoses Acute exacerbation of congestive heart failure I50.9 Edema of both legs R60.0 Abdominal ascites R18.8 Thrombocytopenia D69.6 CODY (acute kidney injury) N17.9 Cellulitis L03.90 UTI (urinary tract infection) N39.0 Transaminitis R74.01 Shortness of breath R06.02
--- NOTE | 2024-10-15 14:42 | XRR_ITS ---
PROCEDURE INFORMATION: Exam: XR Chest Exam date and time: 10/15/2024 4:10 PM Age: 59 years old Clinical indication: Shortness of breath; Additional info: SOB TECHNIQUE: Imaging protocol: Radiologic exam of the chest. Views: 1 view. COMPARISON: CR XR chest 1V portable [id number] 08/15/2024 5:19 PM FINDINGS: Lungs: There is no consolidation. Lung volumes are low. Pleural spaces: There is no pleural effusion or pneumothorax. Heart/Mediastinum: Cardiomediastinal contours are unremarkable. Bones/joints: Bones are unremarkable. XR/XR chest 1V portable [id number] IMPRESSION: No acute findings.
[2024-10-15] MEDS: pantoprazole 40 mg SDV IVP (14:57)
[2024-10-15] MEDS: cefTRIAXone 1,000 mg SDV 1000 MG IVP (14:58)
[2024-10-15] MEDS: albumin 25 G/100 ML BAG 60 G IV (14:58)
[2024-10-15] MEDS: FUROsemide 10 mg/mL SDV 4mL 40 MG IVP (14:59)
[2024-10-15] MEDS: lactulose oral liq 20 gm/30 mL UDC PO ×2 (14:59→21:08)
[2024-10-15 15:02] LABS: Hematocrit 38.4 % (36-47); Hemoglobin 11.70 g/dL (11.27-16.99); Mean Corpuscular HGB Conc 30.5 g/dL (30-55); Mean Corpuscular Hemoglobin 27.5 pg (27-33); Mean Corpuscular Volume 90.4 fl (85-98); Nucleated Red Blood Cells % 0 %; Platelet Count 105 10^3/cmm (157-399); Red Blood Count 4.25 10^6/uL (3.85-5.65); White Blood Count 4.73 10^3/uL (3.29-11.43)
[2024-10-15 15:03] VITALS: RESP 22; O2SAT 97
[2024-10-15] MEDS: morphine 4 mg/mL SDV 1 mL 1 MG IVP (15:03)
[2024-10-15 15:22] LABS: Estmated Average Glucose 91; Hemoglobin A1C 4.8 % (4.0-6.0); Troponin(5th) Baseline 25 ng/L (0-10)
--- NOTE | 2024-10-15 15:35 | PC.NURSE ---
patient wishes to keep $432.75 of money in room with her. Her home medications, furosemide, xifaxan, spironolactone, hydroxizine, paroxetine, and nadolol in the pyxis.
[2024-10-15 15:45] LABS: NT Pro B Type Natriuretic Pept 1224 pg/mL (0-125); Procalcitonin 0.09 ng/mL (0-0.5); Thyroid Stimulating Hormone 4.65 uIU/mL (0.27-4.20)
[2024-10-15 15:56] LABS: Alanine Aminotransferase 23 U/L (0-33); Albumin Level 2.5 g/dL (3.5-5.2); Alkaline Phosphatase 92 U/L (35-105); Anion Gap 19.7 (5-19); Aspartate Amino Transferase 47 U/L (0-32); Blood Urea Nitrogen 18 mg/dL (6-20); Calcium 8.6 mg/dL (8.5-10.5); Carbon Dioxide 16 mmol/L (22-29); Chloride 102 mmol/L (98-107); Cholesterol 121 mg/dL (0-200); Creatinine Clr Calc Pharmacy 60.0103; Globulin 3.6 g/dL (1.3-4.6); Glucose 69 mg/dL (65-115); HDL Cholesterol 46 mg/dL (60-100); Osmolality Calculated 278 mOsm/kg (285-295); Potassium 3.7 mmol/L (3.5-5.1); Sodium 134 mmol/L (136-145); Total Protein 6.1 g/dL (6.6-8.7); Triglycerides 76 mg/dL (0-150)
[2024-10-15 16:00] VITALS: BP 127/72; PULSE 59; RESP 15; TEMP 36.6; O2SAT 96
[2024-10-15 16:26] LABS: Glucose Urine UA Negative (Normal); Nitrate Urine Negative (Negative); Specific Gravity, Urine 1.006 (1.005-1.030)
[2024-10-15 16:31] LABS: Add Urine Microscopic? YES
[2024-10-15 16:33] LABS: PCP Screen Urine Negative (Negative)
--- NOTE | 2024-10-15 16:56 | ECG_ITS ---
[facility] Test Date: 2024-10-15 Pat Name: Sandy Ernandez Department: Room: 104 Gender: Female Draw Fire Operator: : 1965 Requested By: Eulalio Dasilva Order Number: [id number] Dano MD: Suzanne Rico M.D. Measurements Intervals [place] Rate: 59 P: 0 OR: 0 QRS: 19 QRSD: 82 T: 22 QT: 481 QTc: 479 Interpretive Statements Normal sinus rhythm with frequent supraventricular ectopics and sinus arrhythmia LOW QRS VOLTAGE IN PRECORDIAL LEADS [QRS DEFLECTION < 1.0 mV IN CHEST LEADS] PROLONGED QT INTERVAL Compared to ECG 08/15/2024 18:35:11 Low QRS voltage now present Prolonged QT interval now present Sinus rhythm no longer present T-wave abnormality no longer present Electronically Signed On 10-17-2024 10:01:01 CDT by Suzanne Rico M.D. [id number]
--- NOTE | 2024-10-15 16:57 | ECG_ITS ---
[facility]: [facility]24[facility]15 Pat Name: Sandy Ernandez Department: Room: 104 Gender: Female Fire Claims Adjuster: : 1965 Requested By: Eulalio Dasilva Order Number: [id number] Reading MD: Measurements Intervals [place] Rate: 58 P: 0 CA: 0 QRS: 13 QRSD: 85 T: 12 QT: 436 QTc: 430 Interpretive Statements ATRIAL FIBRILLATION WITH SLOW VENTRICULAR RESPONSE LOW QRS VOLTAGE IN PRECORDIAL LEADS [QRS DEFLECTION < 1.0 mV IN CHEST LEADS] NONSPECIFIC T-WAVE ABNORMALITY ABNORMAL RHYTHM ECG [id number]
[2024-10-15 17:31] VITALS: O2SAT 96
--- NOTE | 2024-10-15 18:34 | ECG_ITS ---
[facility] Test Date: 2024-10-15 Pat Name: Sandy Ernandez Department: Room: 104 Gender: Female Commissioner Of Officials: : 1965 Requested By: Eulalio Dasilva Order Number: [id number] Dano MD: Suzanne Rico M.D. Measurements Intervals [place] Rate: 65 P: 0 [place]: 0 QRS: 18 QRSD: 77 T: 26 QT: 426 QTc: 446 Interpretive Statements SUPRAVENTRICULAR RHYTHM LOW QRS VOLTAGE IN PRECORDIAL LEADS [QRS DEFLECTION < 1.0 mV IN CHEST LEADS] ABNORMAL RHYTHM ECG INTERPRETATION BASED ON A DEFAULT AGE OF 40 YEARS Compared to ECG 10/15/2024 16:57:42 Supraventricular rhythm now present Atrial fibrillation no longer present T-wave abnormality no longer present Electronically Signed On 10-18-2024 00:27:35 CDT by Suzanne Rico M.D. [id number]
[2024-10-15 18:56] LABS: Ammonia 75 umol/L (11-51); Lactic Sepsis W/Reflex 1.3 mmol/L (0.5-2.2)
[2024-10-15 18:59] LABS: Troponin 5 2HR 28.09 ng/L (0-10); Troponin 5 2HR Delta 3.09 ABS# (0-10)
[2024-10-15 19:24] LABS: INR 1.48 (0.8-1.2); Partial Thromboplastin Time 35.3 SECONDS (23.9-36.7); Prothrombin Time 18.90 SECONDS (12.1-14.9)
[2024-10-15 19:59] VITALS: BP 105/58; PULSE 70; RESP 18; TEMP 36.7; O2SAT 98
[2024-10-15 20:52] LABS: Troponin 5 6HR 26.54 ng/L (0-10); Troponin 5 6HR Delta 1.54 ng/L (0-12)
[2024-10-15 23:50] VITALS: BP 109/55; PULSE 72; RESP 18; TEMP 36.7; O2SAT 95
[2024-10-16] VITALS (7 sets, daily range): BP systolic 98–129; BP diastolic 50–70; PULSE 69–75; RESP 14–21; TEMP 36.6–36.9; O2SAT 95–98
[2024-10-16 02:14] LABS: Hematocrit 30.4 % (36-47); Hemoglobin 9.70 g/dL (11.27-16.99); Mean Corpuscular HGB Conc 31.9 g/dL (30-55); Mean Corpuscular Hemoglobin 27.2 pg (27-33); Mean Corpuscular Volume 85.2 fl (85-98); Nucleated Red Blood Cells % 0 %; Platelet Count 106 10^3/cmm (157-399); Red Blood Count 3.57 10^6/uL (3.85-5.65); White Blood Count 4.00 10^3/uL (3.29-11.43)
[2024-10-16 02:35] LABS: Alanine Aminotransferase 16 U/L (0-33); Albumin Level 2.5 g/dL (3.5-5.2); Alkaline Phosphatase 87 U/L (35-105); Anion Gap 14.4 (5-19); Aspartate Amino Transferase 32 U/L (0-32); Blood Urea Nitrogen 18 mg/dL (6-20); Calcium 8.3 mg/dL (8.5-10.5); Carbon Dioxide 23 mmol/L (22-29); Chloride 106 mmol/L (98-107); Creatinine Clr Calc Pharmacy 51.4374; Globulin 2.8 g/dL (1.3-4.6); Glucose 93 mg/dL (65-115); Magnesium 1.8 mg/dL (1.7-2.3); Osmolality Calculated 292 mOsm/kg (285-295); Potassium 3.4 mmol/L (3.5-5.1); Sodium 140 mmol/L (136-145); Total Protein 5.3 g/dL (6.6-8.7)
[2024-10-16] MEDS: lactulose oral liq 20 gm/30 mL UDC PO (02:49)
[2024-10-16] MEDS: morphine 4 mg/mL SDV 1 mL 1 MG IVP (02:49)
[2024-10-16] MEDS: albumin 25 G/100 ML BAG 60 G IV ×2 (02:52→15:01)
[2024-10-16] MEDS: FUROsemide 10 mg/mL SDV 4mL 40 MG IVP ×2 (03:44→16:27)
--- NOTE | 2024-10-16 08:03 | PHA.VACGOAL ---
Vancomycin Goal - Goal Vancomycin Goal:: 10-15 mg/L Vancomycin Indication:: SSTI - Therapy Day of therpy:: Day []of [] . Actual body weight (kg): 223 lb 12.8 oz - Data Labs: WBC 4.00 10^3/uL (3.29-11.43) 10/16/24 01:35 RBC 3.57 10^6/uL (3.85-5.65) L 10/16/24 01:35 Hgb 9.70 g/dL (11.27-16.99) L 10/16/24 01:35 Hct 30.4 % (36-47) L 10/16/24 01:35 MCV 85.2 fl (85-98) D 10/16/24 01:35 MCH 27.2 pg (27-33) 10/16/24 01:35 MCHC 31.9 g/dL (30-55) 10/16/24 01:35 RDW 15.1 % (12.1-15.1) 10/16/24 01:35 Sodium 140 mmol/L (136-145) 10/16/24 01:35 Potassium 3.4 mmol/L (3.5-5.1) L 10/16/24 01:35 Chloride 106 mmol/L (98-107) 10/16/24 01:35 Carbon Dioxide 23 mmol/L (22-29) 10/16/24 01:35 Anion Gap 14.4 (5-19) 10/16/24 01:35 BUN 18 mg/dL (6-20) 10/16/24 01:35 Creatinine 1.4 mg/dL (0.5-0.9) H 10/16/24 01:35 GFR Calculation 38.8 mL/min (90-130) L 10/16/24 01:35 Treatment plan:: new consult Regimen:: 1500 MG Q24H
--- NOTE | 2024-10-16 09:52 | PC.CHAP ---
Pastoral Care Encounter/Spiritual Assessment Type of Contact [] Declined offset press operator visit [] Patient/Family/Request visit [] Outpatient visit [] Follow-up visit [] Physician referral [] Code/Alert [x] Routine visit [] Staff referral [] Actively dying [] Patient sleeping [] Family support [] [] Out of room [] Palliative care [] [] Receiving care in room [] Pre-surgical visit [] Trauma [] Long length of stay [] ICU visit [] Other: Relational/Emotional Strength [x] Patient feels connected with others/family/visitors/staff [] Distress [] Loneliness/isolation [] Abandonment Spirituality of Patient [x] Person of Lauren [] Attends Quaker of their Lauren [x] Believes in Prayer [] Reads Bible or Mormon materials [] There are Spiritual issues to be addressed Regulatory Process Manager Interventions [x] Prayer [x] Active listening [x] Non-anxious presence [x] Spiritual/emotional support [] Crisis/trauma care [] Spiritual counseling [] Bereavement support [] Provided bereavement packet [] Provided Bible/devotional materials [] Provided toy/stuffed animal, coloring book to patient or family member [] Provided Communion [] Anointing/Protivin [] Salvation [x] Completed spiritual assessment [] Other: Impact on Illness or Injury [] Angry [] Fearful [] Anxious [] Often cries [] Exhaustion [] Unable to work [] Unable to attend zoroastrian [] Unable to walk/stand [] Unable to read [] Unable to drive [] Unable to eat/drink [] Unable to sleep [] Unable to be with family [] Patient intubated [] Other: Summary Time spent with patient 5 min
[2024-10-16 13:29] LABS: INR 1.29 (0.8-1.2); Prothrombin Time 17.00 SECONDS (12.1-14.9)
--- NOTE | 2024-10-16 14:18 | P.PN_ITS ---
Subjective 2 Subjective: Patient was seen this morning, currently alert and oriented x 3, following all commands, denies any fevers, no chills, no cough she continues to complain of abdominal distention, bilateral extremity edema, with weeping edema, Vitals/I&O/Wt Last Vital Signs Temp 97.8 F 10/16/24 11:55 Pulse 75 10/16/24 11:55 Resp 14 10/16/24 11:55 BP 129/69 10/16/24 11:55 Pulse Ox 97 10/16/24 11:55 O2 Del Method Room Air 10/16/24 11:55 10/15/24 10/16/24 10/16/24 22:59 06:59 14:59 Intake Total 470 / 470 980 / 1450 360 / 360 Output Total 1050 / 1050 200 / 1250 Balance -580 / -580 780 / 200 360 / 360 Weight last 48 hrs Weight 101.514 kg Weight 98.231 kg Physical Exam 2 Const: COMMON NORMALS: no acute distress and patient oriented x3 Resp: COMMON NORMALS: normal respiratory effort, No retractions and No use of accessory muscles AUSCULTATION: crackles Cardio: COMMON NORMALS: regular rate, regular rhythm, S1 normal heart sound present and S2 normal heart sound present RATE: regular rate RHYTHM: r egular rhythm HEART SOUNDS: S1 normal heart sound present and S2 normal heart sound present GI: OTHER: Abdomen soft, distended, fluid wave present, no guarding, rebound, rigidity Extremity: NARRATIVE EXTREMITY EXAM: 3+ pitting edema bilateral extremity Neuro: COMMON NORMALS: patient oriented x3 Psych: COMMON NORMALS: mental status grossly normal Skin: NARRATIVE SKIN EXAM: Areas of erythema bilateral from a, persist today, borders are not well- demarcated, with multiple excoriations Urinary Catheter Management: Patel: Cath Placed During This Visit: yes Reason for Continuing Indwelling Catheter: Accurate Measurement of Urinary Output in Critically Ill Patients Urinary Catheter Date of Insertion: 10/15/24 Urinary Catheter Time of Insertion: 14:45 Data 10/16/24 01:35 10/16/24 01:35 Micro: Microbiology 10/15/24 14:30 Blood Culture - Preliminary Blood SPECIMEN COLLECTED 10/15/24 14:45 Blood Culture - Preliminary Blood SPECIMEN COLLECTED A&P Assessment and plan 1. Acute exacerbation of congestive heart failure: 2. Edema of both legs: 3. Abdominal ascites: 4. Thrombocytopenia: 5. CODY (acute kidney injury): 6. Cellulitis: 7. UTI (urinary tract infection): 8. Transaminitis: 9. Shortness of breath: Plan: Acute diastolic CHF exacerbation, fluid overload, pulmonary edema, bilateral extremity edema - With liver cirrhosis, hyperammonemia - Urine output overnight has been lackluster Plan - Fluid restrictions of 1000 cc - Lasix 40 IV twice daily, with metolazone - With albumin therapy - With potassium therapy - Patel catheter Abdominal ascites - Paracentesis ordered Bilateral primary cellulitis - Vancomycin - Cefepime History of Enterococcus UTI, with UTI - Antibiotics as above Methamphetamine use, urine toxicology positive for methamphetamines Liver cirrhosis History of hepatitis C Hepatic encephalopathy, continue Xifaxan, continue lactulose, monitor ammonia levels Full code Lovenox for DVT prophylaxis PDMP PDMP Reviewed: Not Reviewed Attestations 2 Medical Necessity Statement*: Patient requires hospitalization for fluid overload requiring IV diuresis, abdominal ascites requiring paracentesis Diagnoses Acute exacerbation of congestive heart failure I50.9 Edema of both legs R60.0 Abdominal ascites R18.8 Thrombocytopenia D69.6 CODY (acute kidney injury) N17.9 Cellulitis L03.90 UTI (urinary tract infection) N39.0 Transaminitis R74.01 Shortness of breath R06.02
--- NOTE | 2024-10-16 14:44 | US_ITS ---
WS: [id number] ULTRASOUND-GUIDED THERAPEUTIC AND DIAGNOSTIC PARACENTESIS Procedure, risks, and complications have been explained to the patient. Consent is obtained. Utilizing aseptic technique and 1% buffered lidocaine, a small dermatome was made through which a 5 Israeli Yueh catheter was inserted. Approximately 5550 ml of clear peritoneal fluid was obtained without difficulty. No complications encountered. US/US paracentesis abd w [id number] IMPRESSION: Uncomplicated paracentesis yielding 5550 ml of peritoneal fluid.
[2024-10-16 14:59] LABS: Body Fluid Polynuclear #Cells 0.023; Monocytes # Body Fluid 0.064; Mononuclear WBC Body Fluid % 73.600 %; Polynuclear WBC Body Fluid % 26.400 %
[2024-10-16 15:07] LABS: Apprearance, Body Fluid CLOUDY; Color, Body Fluid PALE YELLOW
[2024-10-16 15:08] LABS: PATH Referral YES
[2024-10-16 15:12] LABS: Fluid Alkaline Phos. 17 IU/L
[2024-10-16 15:14] LABS: Cyto Order Verification Order Verified
--- NOTE | 2024-10-16 15:15 | PC.NURSE ---
Provider is called regarding Albumin order. Patient had a scheduled albumin 100 ml bag and provider ordered a one time dose of 50mg 200ml for patient at the same time. Provider ordered to give just the 100ml bag and cancel the 200ml.
--- NOTE | 2024-10-16 15:29 | PC.NURSE ---
Patient had 5550 out on her paracentesis.
[2024-10-16 15:56] LABS: Fluid Laterality RIGHT ASCITES
[2024-10-16] MEDS: pantoprazole 40 mg SDV IVP (16:28)
[2024-10-16] MEDS: cefTRIAXone 1,000 mg SDV 1000 MG IVP (16:28)
[2024-10-17] VITALS (9 sets, daily range): BP systolic 96–118; BP diastolic 54–72; PULSE 64–72; RESP 16–22; TEMP 36.6–36.8; O2SAT 95–98
[2024-10-17] MEDS: morphine 4 mg/mL SDV 1 mL 1 MG IVP (00:53)
[2024-10-17] MEDS: albumin 25 G/100 ML BAG 60 G IV (02:15)
[2024-10-17] MEDS: FUROsemide 10 mg/mL SDV 4mL 40 MG IVP ×2 (03:29→21:42)
[2024-10-17 04:13] LABS: Hematocrit 29.9 % (36-47); Hemoglobin 9.50 g/dL (11.27-16.99); Mean Corpuscular HGB Conc 31.8 g/dL (30-55); Mean Corpuscular Hemoglobin 27.1 pg (27-33); Mean Corpuscular Volume 85.4 fl (85-98); Nucleated Red Blood Cells % 0 %; Platelet Count 75 10^3/cmm (157-399); Red Blood Count 3.50 10^6/uL (3.85-5.65); White Blood Count 3.23 10^3/uL (3.29-11.43)
[2024-10-17 04:34] LABS: Alanine Aminotransferase 12 U/L (0-33); Albumin Level 2.9 g/dL (3.5-5.2); Alkaline Phosphatase 83 U/L (35-105); Anion Gap 15.6 (5-19); Aspartate Amino Transferase 22 U/L (0-32); Blood Urea Nitrogen 17 mg/dL (6-20); Calcium 8.0 mg/dL (8.5-10.5); Carbon Dioxide 24 mmol/L (22-29); Chloride 100 mmol/L (98-107); Creatinine Clr Calc Pharmacy 53.6213; Globulin 2.1 g/dL (1.3-4.6); Glucose 87 mg/dL (65-115); Magnesium 1.6 mg/dL (1.7-2.3); Osmolality Calculated 285 mOsm/kg (285-295); Sodium 137 mmol/L (136-145); Total Protein 5.0 g/dL (6.6-8.7)
[2024-10-17 04:45] LABS: Potassium 2.6 mmol/L (3.5-5.1)
[2024-10-17] MEDS: magnesium sulfate premix 1 GM/100 ML PIGGYBACK IV (09:01)
[2024-10-17] MEDS: potassium phosphate (mEq K) 40 MEQ in sodium chloride 0.9% (100 ml) 100 ML 25 MEQ IV (09:14)
--- NOTE | 2024-10-17 12:51 | P.PN_ITS ---
Subjective 2 Subjective: Patient was seen this morning, currently alert oriented x 3, following all commands, she tells me that her abdominal distention is improving, no abdominal pain, she continues to have weeping lower extremity edema, shortness of breath, Vitals/I&O/Wt Last Vital Signs Temp 97.8 F 10/17/24 12:00 Pulse 66 10/17/24 12:00 Resp 19 H 10/17/24 12:00 BP 107/54 10/17/24 12:00 Pulse Ox 96 10/17/24 11:26 O2 Del Method Room Air 10/17/24 11:26 10/16/24 10/17/24 10/17/24 22:59 06:59 14:59 Intake Total 1000 / 1600 742 / 2342 220 / 220 Output Total 3350 / 3350 1525 / 4875 Balance -2350 / -1750 -783 / -2533 220 / 220 Weight last 48 hrs Weight 92.351 kg Weight 101.514 kg Weight 98.231 kg Physical Exam 2 Const: COMMON NORMALS: no acute distress and patient oriented x3 Resp: COMMON NORMALS: normal respiratory effort, No retractions and No use of accessory muscles AUSCULTATION: crackles Cardio: COMMON NORMALS: regular rate, regular rhythm, S1 normal heart sound present and S2 normal heart sound present RATE: regular rate RHYTHM: r egular rhythm HEART SOUNDS: S1 normal heart sound present and S2 normal heart sound present GI: COMMON NORMALS: Normal to inspection, nondistended, normoactive bowel sounds present and non-tender Extremity: NARRATIVE EXTREMITY EXAM: 3+ pitting edema, weeping edema Neuro: COMMON NORMALS: patient oriented x3 Psych: COMMON NORMALS: mental status grossly normal Urinary Catheter Management: Patel: Cath Placed During This Visit: yes Reason for Continuing Indwelling Catheter: Accurate Measurement of Urinary Output in Critically Ill Patients Urinary Catheter Date of Insertion: 10/15/24 Urinary Catheter Time of Insertion: 14:45 Data 10/17/24 03:37 10/17/24 03:37 Micro: Microbiology 10/16/24 14:10 Gram Stain - Final Peritoneal Fluid Anaerobic Culture - Preliminary Body Fluid Culture - Preliminary 10/15/24 16:00 Urine Culture - Preliminary Urine,Clean Catch Streptococcus species 10/15/24 14:30 Blood Culture - Preliminary Blood NEGATIVE TO DATE 10/15/24 14:45 Blood Culture - Preliminary Blood NEGATIVE TO DATE A&P Assessment and plan 1. Acute exacerbation of congestive heart failure: 2. Edema of both legs: 3. Abdominal ascites: 4. Thrombocytopenia: 5. CODY (acute kidney injury): 6. Cellulitis: 7. UTI (urinary tract infection): 8. Transaminitis: 9. Shortness of breath: Plan: Acute diastolic CHF exacerbation, fluid overload, pulmonary edema, bilateral extremity edema - With liver cirrhosis, hyperammonemia - Urine output improving Plan - Fluid restrictions of 1000 cc -Will replace potassium this morning 2.6, resume diuresis - Lasix 40 IV twice daily, with metolazone - With albumin therapy - With potassium therapy - Patel catheter Abdominal ascites - -5550 negative Bilateral primary cellulitis - Vancomycin - Cefepime History of Enterococcus UTI, with UTI - Antibiotics as above Methamphetamine use, urine toxicology positive for methamphetamines Liver cirrhosis History of hepatitis C Hepatic encephalopathy, continue Xifaxan, continue lactulose, monitor ammonia levels Full code Lovenox for DVT prophylaxis Plan for today continue IV diuresis PDMP PDMP Reviewed: Not Reviewed Attestations 2 Medical Necessity Statement*: Patient requires hospitalization for diastolic CHF exacerbation requiring IV diuresis Diagnoses Acute exacerbation of congestive heart failure I50.9 Edema of both legs R60.0 Abdominal ascites R18.8 Thrombocytopenia D69.6 CODY (acute kidney injury) N17.9 Cellulitis L03.90 UTI (urinary tract infection) N39.0 Transaminitis R74.01 Shortness of breath R06.02
[2024-10-17 13:51] LABS: Anion Gap 13.7 (5-19); Blood Urea Nitrogen 17 mg/dL (6-20); Calcium 8.2 mg/dL (8.5-10.5); Carbon Dioxide 28 mmol/L (22-29); Chloride 100 mmol/L (98-107); Creatinine Clr Calc Pharmacy 58.0898; Glucose 105 mg/dL (65-115); Osmolality Calculated 290 mOsm/kg (285-295); Sodium 139 mmol/L (136-145)
[2024-10-17] MEDS: cefTRIAXone 1,000 mg SDV 1000 MG IVP (13:51)
[2024-10-17 13:58] LABS: Potassium 2.7 mmol/L (3.5-5.1)
--- NOTE | 2024-10-17 14:07 | PC.NURSE ---
1230 Transfered patient via w/c to [facility] with home meds, bag with wallet and money in it and clothes and phone. Moves a little slow, legs uncomfortable when moving around. No c/o's.
[2024-10-17] MEDS: lidocaine 1% 5 ML in potassium chloride premix 100 ML 52.5 ML IV ×2 (14:43→18:32)
[2024-10-17] MEDS: pantoprazole 40 mg SDV IVP (16:54)
[2024-10-17 21:52] LABS: Anion Gap 15.2 (5-19); Blood Urea Nitrogen 17 mg/dL (6-20); Calcium 8.0 mg/dL (8.5-10.5); Carbon Dioxide 25 mmol/L (22-29); Chloride 101 mmol/L (98-107); Creatinine Clr Calc Pharmacy 69.7077; Glucose 111 mg/dL (65-115); Osmolality Calculated 288 mOsm/kg (285-295); Potassium 3.2 mmol/L (3.5-5.1); Sodium 138 mmol/L (136-145)
[2024-10-18] VITALS (7 sets, daily range): BP systolic 113–126; BP diastolic 52–72; PULSE 63–70; RESP 16–18; TEMP 36.3–36.9; O2SAT 94–98
[2024-10-18 05:02] LABS: Hematocrit 31.8 % (36-47); Hemoglobin 10.30 g/dL (11.27-16.99); Mean Corpuscular HGB Conc 32.4 g/dL (30-55); Mean Corpuscular Hemoglobin 27.6 pg (27-33); Mean Corpuscular Volume 85.3 fl (85-98); Nucleated Red Blood Cells % 0 %; Platelet Count 78 10^3/cmm (157-399); Red Blood Count 3.73 10^6/uL (3.85-5.65); White Blood Count 3.41 10^3/uL (3.29-11.43)
[2024-10-18 05:24] LABS: Alanine Aminotransferase 12 U/L (0-33); Albumin Level 2.7 g/dL (3.5-5.2); Alkaline Phosphatase 78 U/L (35-105); Anion Gap 13.7 (5-19); Aspartate Amino Transferase 24 U/L (0-32); Blood Urea Nitrogen 17 mg/dL (6-20); Calcium 8.0 mg/dL (8.5-10.5); Carbon Dioxide 27 mmol/L (22-29); Chloride 104 mmol/L (98-107); Creatinine Clr Calc Pharmacy 69.7077; Globulin 2.3 g/dL (1.3-4.6); Glucose 94 mg/dL (65-115); Magnesium 1.6 mg/dL (1.7-2.3); Osmolality Calculated 295 mOsm/kg (285-295); Sodium 142 mmol/L (136-145); Total Protein 5.0 g/dL (6.6-8.7)
[2024-10-18 05:27] LABS: Potassium 2.7 mmol/L (3.5-5.1)
[2024-10-18] MEDS: lidocaine 1% 5 ML in potassium chloride premix 100 ML 52.5 ML IV ×4 (06:32→17:36)
[2024-10-18] MEDS: morphine 4 mg/mL SDV 1 mL 1 MG IVP ×2 (08:22→21:52)
[2024-10-18 11:21] LABS: Ammonia 91 umol/L (11-51)
[2024-10-18 11:22] LABS: Anion Gap 13.8 (5-19); Blood Urea Nitrogen 16 mg/dL (6-20); Calcium 7.9 mg/dL (8.5-10.5); Carbon Dioxide 27 mmol/L (22-29); Chloride 99 mmol/L (98-107); Creatinine Clr Calc Pharmacy 71.2014; Glucose 116 mg/dL (65-115); Osmolality Calculated 286 mOsm/kg (285-295); Sodium 137 mmol/L (136-145)
[2024-10-18 12:12] LABS: Potassium 2.8 mmol/L (3.5-5.1)
[2024-10-18] MEDS: cefTRIAXone 1,000 mg SDV 1000 MG IVP (14:56)
--- NOTE | 2024-10-18 15:31 | P.PN_ITS ---
Subjective 2 Subjective: Patient was seen this morning, currently alert oriented x 3, following all commands, she feels better after her paracentesis but continues to have lower extremity edema, discussed replacing her potassium before further diuresis, she is in agreement as her potassium is low was 2.7 Vitals/I&O/Wt Last Vital Signs Temp 98.4 F 10/18/24 11:30 Pulse 64 10/18/24 11:30 Resp 16 10/18/24 11:30 BP 118/56 10/18/24 11:30 Pulse Ox 94 10/18/24 11:30 O2 Del Method Room Air 10/18/24 11:30 10/18/24 10/18/24 10/18/24 06:59 14:59 22:59 Intake Total 914.75 / 914.75 40.250 / 955.000 Output Total 1999 / 0 Balance -1999 / 3070.9091 914.75 / 914.75 40.250 / 955.000 Weight last 48 hrs Weight 96.162 kg Weight 92.351 kg Physical Exam 2 Const: COMMON NORMALS: no acute distress and patient oriented x3 Resp: COMMON NORMALS: normal respiratory effort, No retractions, No use of accessory muscles and clear to auscultation bilaterally AUSCULTATION: clear to auscultation bilaterally Cardio: COMMON NORMALS: regular rate, regular rhythm, S1 normal heart sound present and S2 normal heart sound present RATE: regular rate RHYTHM: r egular rhythm HEART SOUNDS: S1 normal heart sound present and S2 normal heart sound present GI: COMMON NORMALS: Normal to inspection, nondistended, normoactive bowel sounds present and non-tender Extremity: NARRATIVE EXTREMITY EXAM: 2+ pitting edema bilaterally Neuro: COMMON NORMALS: patient oriented x3 Psych: COMMON NORMALS: mental status grossly normal Urinary Catheter Management: Patel: Cath Placed During This Visit: yes Reason for Continuing Indwelling Catheter: Other Urinary Catheter Date of Insertion: 10/15/24 Urinary Catheter Time of Insertion: 14:45 Data 10/18/24 04:38 10/18/24 10:56 Micro: Microbiology 10/16/24 14:10 Gram Stain - Final Peritoneal Fluid Anaerobic Culture - Preliminary Body Fluid Culture - Preliminary A&P Assessment and plan 1. Acute exacerbation of congestive heart failure: 2. Edema of both legs: 3. Abdominal ascites: 4. Thrombocytopenia: 5. CODY (acute kidney injury): 6. Cellulitis: 7. UTI (urinary tract infection): 8. Transaminitis: 9. Shortness of breath: Plan: Acute diastolic CHF exacerbation, fluid overload, pulmonary edema, bilateral extremity edema - With liver cirrhosis, hyperammonemia - Urine output improving Plan - Fluid restrictions of 1000 cc -Will replace potassium this morning 2.6, resume diuresis - Lasix 40 IV twice daily, with metolazone - With albumin therapy - With potassium therapy - Patel catheter Abdominal ascites - -5550 negative Bilateral primary cellulitis - Vancomycin - Cefepime History of Enterococcus UTI, with UTI - Antibiotics as above Methamphetamine use, urine toxicology positive for methamphetamines Liver cirrhosis History of hepatitis C Hepatic encephalopathy, continue Xifaxan, continue lactulose, monitor ammonia levels Full code Lovenox for DVT prophylaxis Plan for today continue IV diuresis, replace potassium PDMP PDMP Reviewed: Not Reviewed Attestations 2 Medical Necessity Statement*: Patient requires hospitalization for fluid overload, CHF, hypokalemia Diagnoses Acute exacerbation of congestive heart failure I50.9 Edema of both legs R60.0 Abdominal ascites R18.8 Thrombocytopenia D69.6 CODY (acute kidney injury) N17.9 Cellulitis L03.90 UTI (urinary tract infection) N39.0 Transaminitis R74.01 Shortness of breath R06.02
[2024-10-18] MEDS: pantoprazole 40 mg SDV IVP (17:21)
[2024-10-18] MEDS: FUROsemide 10 mg/mL SDV 4mL 40 MG IVP (21:53)
[2024-10-18 22:23] LABS: Anion Gap 11.7 (5-19); Blood Urea Nitrogen 15 mg/dL (6-20); Calcium 8.0 mg/dL (8.5-10.5); Carbon Dioxide 28 mmol/L (22-29); Chloride 103 mmol/L (98-107); Creatinine Clr Calc Pharmacy 71.2014; Glucose 112 mg/dL (65-115); Osmolality Calculated 290 mOsm/kg (285-295); Potassium 3.7 mmol/L (3.5-5.1); Sodium 139 mmol/L (136-145)
[2024-10-19] VITALS (8 sets, daily range): BP systolic 106–122; BP diastolic 53–81; PULSE 66–71; RESP 14–17; TEMP 36.5–37; O2SAT 94–98
[2024-10-19 08:51] LABS: Blood Urea Nitrogen 14 mg/dL (6-20); Calcium 8.0 mg/dL (8.5-10.5); Carbon Dioxide 28 mmol/L (22-29); Chloride 100 mmol/L (98-107); Creatinine Clr Calc Pharmacy 78.3349; Glucose 111 mg/dL (65-115); Osmolality Calculated 287 mOsm/kg (285-295); Sodium 138 mmol/L (136-145)
[2024-10-19 08:54] LABS: Anion Gap 13.3 (5-19); Potassium 3.3 mmol/L (3.5-5.1)
[2024-10-19] MEDS: FUROsemide 10 mg/mL SDV 4mL 40 MG IVP ×2 (11:45→20:31)
--- NOTE | 2024-10-19 13:12 | P.PN_ITS ---
Subjective 2 Subjective: Patient was seen this morning, she feels better this morning continues to have complaints of shortness of breath she continues to have 2+ pitting edema bilateral extremity discussed her hypokalemia that is requiring replacement before further diuresis, will continue Lasix today, continue potassium replacement Vitals/I&O/Wt Last Vital Signs Temp 97.9 F 10/19/24 11:17 Pulse 68 10/19/24 11:17 Resp 16 10/19/24 11:17 BP 121/81 10/19/24 11:17 Pulse Ox 94 10/19/24 11:17 O2 Del Method Room Air 10/19/24 11:17 10/18/24 10/19/24 10/19/24 22:59 06:59 14:59 Intake Total 750.000 / 1664.750 480 / 480 Output Total 600 / 600 1800 / 2400 Balance 150.000 / 1064.750 -1800 / -735.250 480 / 480 Weight last 48 hrs Weight 94.376 kg Weight 96.162 kg Physical Exam 2 Const: COMMON NORMALS: no acute distress and patient oriented x3 Neck/C-Spine: COMMON NORMALS: no JVD Resp: COMMON NORMALS: normal respiratory effort, No retractions and No use of accessory muscles AUSCULTATION: crackles Cardio: COMMON NORMALS: no JVD, regular rate, regular rhythm, S1 normal heart sound present and S2 normal heart sound present RATE: regular rate RHYTHM: regular rhythm HEART SOUNDS: S1 normal heart sound present and S2 normal heart sound present GI: COMMON NORMALS: Normal to inspection, nondistended, normoactive bowel sounds present and non-tender Extremity: NARRATIVE EXTREMITY EXAM: 2+ pitting edema Neuro: COMMON NORMALS: patient oriented x3 Psych: COMMON NORMALS: mental status grossly normal Urinary Catheter Management: Patel: Cath Placed During This Visit: yes Reason for Continuing Indwelling Catheter: Other Urinary Catheter Date of Insertion: 10/15/24 Urinary Catheter Time of Insertion: 14:45 Data 10/18/24 04:38 10/19/24 08:28 Micro: Microbiology 10/16/24 14:10 Gram Stain - Final Peritoneal Fluid Anaerobic Culture - Preliminary Body Fluid Culture - Final A&P Assessment and plan 1. Acute exacerbation of congestive heart failure: 2. Edema of both legs: 3. Abdominal ascites: 4. Thrombocytopenia: 5. CODY (acute kidney injury): 6. Cellulitis: 7. UTI (urinary tract infection): 8. Transaminitis: 9. Shortness of breath: Plan: Acute diastolic CHF exacerbation, fluid overload, pulmonary edema, bilateral extremity edema - With liver cirrhosis, hyperammonemia - Urine output improving Plan - Fluid restrictions of 1000 cc -Will replace potassium this morning 2.6, resume diuresis - Lasix 40 IV twice daily, with metolazone - With albumin therapy - With potassium therapy - Patel catheter Abdominal ascites - -5550 negative Bilateral primary cellulitis - De-escalate to doxycycline History of Enterococcus UTI, with UTI - Antibiotics as above Methamphetamine use, urine toxicology positive for methamphetamines Liver cirrhosis History of hepatitis C Hepatic encephalopathy, continue Xifaxan, continue lactulose, monitor ammonia levels Full code Lovenox for DVT prophylaxis Plan for today continue IV diuresis, replace potassium PDMP PDMP Reviewed: Not Reviewed Attestations 2 Medical Necessity Statement*: Patient requires hospitalization for IV diuresis Diagnoses Acute exacerbation of congestive heart failure I50.9 Edema of both legs R60.0 Abdominal ascites R18.8 Thrombocytopenia D69.6 CODY (acute kidney injury) N17.9 Cellulitis L03.90 UTI (urinary tract infection) N39.0 Transaminitis R74.01 Shortness of breath R06.02
[2024-10-19 15:57] LABS: Anion Gap 13.8 (5-19); Blood Urea Nitrogen 14 mg/dL (6-20); Calcium 8.1 mg/dL (8.5-10.5); Carbon Dioxide 29 mmol/L (22-29); Chloride 100 mmol/L (98-107); Creatinine Clr Calc Pharmacy 88.1267; Glucose 96 mg/dL (65-115); Osmolality Calculated 290 mOsm/kg (285-295); Sodium 140 mmol/L (136-145)
[2024-10-19 16:00] LABS: Potassium 2.8 mmol/L (3.5-5.1)
[2024-10-19] MEDS: lidocaine 1% 5 ML in potassium chloride premix 100 ML 52.5 ML IV ×2 (16:14→18:06)
[2024-10-19] MEDS: pantoprazole 40 mg SDV IVP (18:08)
[2024-10-19 20:48] LABS: Amylase, Peritoneal Fluid 15 U/L
[2024-10-19 22:15] LABS: Blood Urea Nitrogen 14 mg/dL (6-20); Calcium 8.4 mg/dL (8.5-10.5); Carbon Dioxide 30 mmol/L (22-29); Chloride 97 mmol/L (98-107); Creatinine Clr Calc Pharmacy 70.5014; Glucose 98 mg/dL (65-115); Osmolality Calculated 284 mOsm/kg (285-295); Sodium 137 mmol/L (136-145)
[2024-10-19 22:18] LABS: Anion Gap 14.0 (5-19); Potassium 4.0 mmol/L (3.5-5.1)
[2024-10-20 04:28] LABS: Hematocrit 33.5 % (36-47); Hemoglobin 10.70 g/dL (11.27-16.99); Mean Corpuscular HGB Conc 31.9 g/dL (30-55); Mean Corpuscular Hemoglobin 27.7 pg (27-33); Mean Corpuscular Volume 86.8 fl (85-98); Nucleated Red Blood Cells % 0 %; Platelet Count 89 10^3/cmm (157-399); Red Blood Count 3.86 10^6/uL (3.85-5.65); White Blood Count 3.70 10^3/uL (3.29-11.43)
[2024-10-20 04:50] LABS: Alanine Aminotransferase 12 U/L (0-33); Albumin Level 2.5 g/dL (3.5-5.2); Alkaline Phosphatase 96 U/L (35-105); Aspartate Amino Transferase 24 U/L (0-32); Blood Urea Nitrogen 13 mg/dL (6-20); Calcium 8.0 mg/dL (8.5-10.5); Carbon Dioxide 31 mmol/L (22-29); Chloride 99 mmol/L (98-107); Creatinine Clr Calc Pharmacy 70.5014; Globulin 2.4 g/dL (1.3-4.6); Glucose 84 mg/dL (65-115); Osmolality Calculated 287 mOsm/kg (285-295); Sodium 139 mmol/L (136-145); Total Protein 4.9 g/dL (6.6-8.7)
[2024-10-20 05:04] LABS: Anion Gap 12.3 (5-19); Potassium 3.3 mmol/L (3.5-5.1)
[2024-10-20 05:31] VITALS: BP 110/57; PULSE 69; RESP 17; TEMP 36.7; O2SAT 94
[2024-10-20 08:14] VITALS: BP 99/52; PULSE 72; RESP 17; TEMP 36.8; O2SAT 95
[2024-10-20] MEDS: FUROsemide 10 mg/mL SDV 4mL 40 MG IVP (09:23)
[2024-10-20] MEDS: lidocaine 1% 5 ML in potassium chloride premix 100 ML 52.5 ML IV (09:24)
[2024-10-20 13:07] VITALS: BP 114/73; PULSE 69; RESP 18; TEMP 36.6; O2SAT 93
--- NOTE | 2024-10-20 13:25 | PM.DCS ---
Discharge Providers Date of Admission: 10/15/24 13:56 Date of Discharge: October 20, 2024 Attending Provider at Admission: Sarita Paul MD Attending Provider at Discharge: Eulalio Dasilva MD Primary Care Provider: MARCELINO Rodrigez Diagnoses at Discharge Discharge Diagnosis 1. Acute exacerbation of congestive heart failure: 2. Edema of both legs: 3. Abdominal ascites: 4. Thrombocytopenia: 5. CODY (acute kidney injury): 6. Cellulitis of lower extremity, unspecified laterality: 7. UTI (urinary tract infection): 8. Transaminitis: 9. Shortness of breath: Reason for Visit Reason for Visit: hepatic encephalopathy. decompensated cirrhosis Hospital Course Hospital Course This is a 59-year-old female with a past medical history of liver cirrhosis, history of recurrent ascites, hepatitis C who presents to [facility] due to shortness of breath, lower extremity edema, abdominal distention Patient was admitted to [facility] for abdominal ascites, status post paracentesis, had over 5 L taken off for For methamphetamine use, discussed against methamphetamine use For history of liver cirrhosis, hepatitis C please follow-up with her development director History of hepatic encephalopathy continue Xifaxan on discharge, continue lactulose For acute diastolic CHF exacerbation, pulm edema, fluid overload, received IV diuresis during hospitalization diuresed over 12 L negative ? Will be discharged on her home spironolactone # Discharged on Lasix 40 mg daily with potassium replacement therapy daily with fluid restrictions #Follow-up with primary care provider next week for recheck creatinine, potassium Discussed fluid restrictions on discharge to 1 to 1.2 L For cellulitis, take p.o. antibiotics as prescribed Physical Exam Const: COMMON NORMALS: no acute distress and patient oriented x3 Resp: COMMON NORMALS: normal respiratory effort, No retractions, No use of accessory muscles and clear to auscultation bilaterally AUSCULTATION: clear to auscultation bilaterally Cardio: COMMON NORMALS: regular rate, regular rhythm, S1 normal heart sound present and S2 normal heart sound present RATE: regular rate RHYTHM: regular rhythm HEART SOUNDS: S1 normal heart sound present and S2 normal heart sound present GI: COMMON NORMALS: Normal to inspection, nondistended, normoactive bowel sounds present and non-tender Extremity: NARRATIVE EXTREMITY EXAM: 1+ edema Neuro: COMMON NORMALS: patient oriented x3 Psych: COMMON NORMALS: mental status grossly normal Urinary Catheter Management: Patel: Cath Placed During This Visit: yes Reason for Continuing Indwelling Catheter: Other Urinary Catheter Date of Insertion: 10/15/24 Urinary Catheter Time of Insertion: 14:45 Discharge Data Studies Completed and Pending Completed Studies During Hospitalization Category Date Time Status XR chest 1V portable [id number] Routine Exams 10/15/24 14:42 Completed Cytology [PTH] Routine Pth 10/15/24 14:15 [place] w [id number] Routine Ultrasound 10/16/24 14:44 Completed Pending at discharge Category Date Time Status Anaerobic Culture Routine Lab 10/15/24 14:10 Results BMP [Basic Metabolic Panel] Stat Lab 10/20/24 13:08 Ordered Blood Culture Stat Lab 10/15/24 14:30 Results Body Fluid Culture & GS Routine Lab 10/15/24 14:10 Results Complete Blood Count w/Auto AM LABS Lab 10/21/24 04:00 Ordered Complete Blood Count w/Auto AM LABS Lab 10/22/24 04:00 Ordered Comprehensive Metabolic Panel AM LABS Lab 10/21/24 04:00 Ordered Comprehensive Metabolic Panel AM LABS Lab 10/22/24 04:00 Ordered Mycobacteria, Culture w/Fluor Routine Lab 10/15/24 14:10 Received Vancomycin Trough Timed Lab 10/19/24 15:00 Ordered Radiology Impressions Chest X-Ray 10/15/24 14:42 IMPRESSION: No acute findings. Paracentesis Ultrasound 10/16/24 14:44 IMPRESSION: Uncomplicated paracentesis yielding 5550 ml of peritoneal fluid. Laboratory Results WBC 3.70 10^3/uL (3.29-11.43) 10/20/24 03:40 RBC 3.86 10^6/uL (3.85-5.65) 10/20/24 03:40 Hgb 10.70 g/dL (11.27-16.99) L 10/20/24 03:40 Hct 33.5 % (36-47) L 10/20/24 03:40 MCV 86.8 fl (85-98) 10/20/24 03:40 MCH 27.7 pg (27-33) 10/20/24 03:40 MCHC 31.9 g/dL (30-55) 10/20/24 03:40 RDW 15.2 % (12.1-15.1) H 10/20/24 03:40 Plt Count 89 10^3/cmm (157-399) L 10/20/24 03:40 MPV 12.7 fL (7.4-10.4) H 10/20/24 03:40 Neut % (Auto) 54.6 % 10/20/24 03:40 Lymph % (Auto) 24.6 % 10/20/24 03:40 [place] % (Auto) 14.3 % 10/20/24 03:40 Eos % (Auto) 4.9 % 10/20/24 03:40 Baso % (Auto) 1.1 % 10/20/24 03:40 Neut # (Auto) 2.02 10^3/uL (1.8-7.7) 10/20/24 03:40 Lymph # (Auto) 0.9 10^3/uL (0.8-4.8) 10/20/24 03:40 [place] # (Auto) 0.5 10^3/uL (0.2-0.9) 10/20/24 03:40 Eos # (Auto) 0.2 10^3/uL (0.0-0.8) 10/20/24 03:40 Baso # (Auto) 0.0 10^3/uL (0.0-0.1) 10/20/24 03:40 Nucleated RBC % (auto) 0 % 10/20/24 03:40 Nucleated RBCs # 0.0 /100WBC 10/20/24 03:40 Differential Comment Yes 10/16/24 14:10 PT 17.00 SECONDS (12.1-14.9) H 10/16/24 13:02 INR 1.29 (0.8-1.2) H 10/16/24 13:02 APTT 35.3 SECONDS (23.9-36.7) 10/15/24 18:22 Sodium 139 mmol/L (136-145) 10/20/24 03:40 Potassium 3.3 mmol/L (3.5-5.1) L 10/20/24 03:40 Chloride 99 mmol/L (98-107) 10/20/24 03:40 Carbon Dioxide 31 mmol/L (22-29) H 10/20/24 03:40 Anion Gap 12.3 (5-19) 10/20/24 03:40 BUN 13 mg/dL (6-20) 10/20/24 03:40 Creatinine 1.0 mg/dL (0.5-0.9) H 10/20/24 03:40 GFR Calculation 57.1 mL/min (90-130) L 10/20/24 03:40 Glucose 84 mg/dL (65-115) 10/20/24 03:40 POC Glucose 146 mg/dL (70-110) H 10/18/24 05:58 Estimat Average Glucose 91 10/15/24 14:45 Hemoglobin A1c 4.8 % (4.0-6.0) 10/15/24 14:45 Calculated Osmolality 287 mOsm/kg (285-295) 10/20/24 03:40 Lactic Acid 1.3 mmol/L (0.5-2.2) 10/15/24 18:22 Calcium 8.0 mg/dL (8.5-10.5) L 10/20/24 03:40 Phosphorus 3.1 mg/dL (2.5-4.5) 10/18/24 04:38 Magnesium 1.6 mg/dL (1.7-2.3) L 10/18/24 04:38 Total Bilirubin 0.7 mg/dL (0.15-1.2) 10/20/24 03:40 AST 24 U/L (0-32) 10/20/24 03:40 ALT 12 U/L (0-33) 10/20/24 03:40 Alkaline Phosphatase 96 U/L (35-105) 10/20/24 03:40 Ammonia 91 umol/L (11-51) H 10/18/24 10:56 Lactate Dehydrogenase 193 U/L (135-214) 10/18/24 04:38 Troponin T Baseline 25 ng/L (0-10) H 10/15/24 14:45 Troponin T 120 Minute 28.09 ng/L (0-10) H 10/15/24 18:22 Delta Troponin T 3.09 ABS# (0-10) 10/15/24 18:22 Troponin T Hi Sens 6Hr 26.54 ng/L (0-10) H 10/15/24 20:30 Troponin T Hi Sens 6Hr Delta 1.54 ng/L (0-12) 10/15/24 20:30 C-Reactive Protein 14.6 mg/L (0.0-4.9) H 10/15/24 14:45 NT-Pro-B Natriuret Pep 1224 pg/mL (0-125) H 10/15/24 14:45 Total Protein 4.9 g/dL (6.6-8.7) L 10/20/24 03:40 Albumin 2.5 g/dL (3.5-5.2) L 10/20/24 03:40 Globulin 2.4 g/dL (1.3-4.6) 10/20/24 03:40 Triglycerides 76 mg/dL (0-150) 10/15/24 14:45 Cholesterol 121 mg/dL (0-200) 10/15/24 14:45 LDL Cholesterol, Calc 60 mg/dL (50-129) 10/15/24 14:45 HDL Cholesterol 46 mg/dL (60-100) L 10/15/24 14:45 LDL/HDL Ratio 1.30 RATIO (0.00-3.22) 10/15/24 14:45 Cholesterol/HDL Ratio 2.63 mg/dL (0.0-4.40) 10/15/24 14:45 Procalcitonin 0.09 ng/mL (0-0.5) 10/15/24 14:45 TSH 4.65 uIU/mL (0.27-4.20) H 10/15/24 14:45 Urine Color Yellow (Yellow) 10/15/24 16:00 Urine Appearance Clear (CLEAR) 10/15/24 16:00 Urine pH 5.0 (5-7) 10/15/24 16:00 Ur Specific [place] 1.006 (1.005-1.030) 10/15/24 16:00 Urine Protein Negative (Negative) 10/15/24 16:00 Urine Glucose (UA) Negative (Normal) 10/15/24 16:00 Urine Ketones Negative (Negative) 10/15/24 16:00 Urine Blood Trace (Negative) A 10/15/24 16:00 Urine Nitrate Negative (Negative) 10/15/24 16:00 Urine Bilirubin Negative (Negative) 10/15/24 16:00 Urine Urobilinogen 0.2 mg/dL (Negative) 10/15/24 16:00 Ur Leukocyte Esterase 2+ (Negative) A 10/15/24 16:00 Urine RBC 0-2 /hpf (0-2) 10/15/24 16:00 Urine WBC 51-100 /hpf (0-5) H 10/15/24 16:00 Ur Squamous Epith Cells 0-5 /hpf (0-5) 10/15/24 16:00 Amorphous Sediment Not Reportable 10/15/24 16:00 Urine Bacteria None seen /hpf (NONE) 10/15/24 16:00 Hyaline Casts 1.65 /lpf 10/15/24 16:00 Fluid Color Pale yellow 10/16/24 14:10 Fluid Appearance Cloudy 10/16/24 14:10 Fluid Specific Grav 1.014 10/16/24 14:10 Fluid pH 8.0 10/16/24 14:10 Fluid WBC 87 /uL 10/16/24 14:10 Fluid RBC 1.000 10^3/uL 10/16/24 14:10 Fld Polynuclear WBCs # 0.023 10/16/24 14:10 Fld Polynuclear WBCs % 26.400 % 10/16/24 14:10 Fl Mononucl WBCs #(Auto) 0.064 10/16/24 14:10 Fl Mononuclear % Auto 73.600 % 10/16/24 14:10 Fld Crystal Laterality Right ascites 10/16/24 14:10 Fluid Glucose 100.0 mg/dL 10/16/24 14:10 Fluid Total Protein 1.4 g/dL 10/16/24 14:10 Fluid Albumin 0.7 g/dL 10/16/24 14:10 Fluid LDH 74 U/L 10/16/24 14:10 Fluid Alk Phosphatase 17 IU/L 10/16/24 14:10 Fluid Cholesterol 17 mg/dL (0-200) 10/16/24 14:10 Fluid Triglycerides 20 mg/dL (0-150) 10/16/24 14:10 Fluid Uric Acid 8 mg/dL 10/16/24 14:10 Peritoneal Amylase 15 U/L 10/16/24 14:10 Pleural Amylase Cancelled 10/16/24 14:10 Urine Opiates Screen Positive ng/mL (Negative) H 10/15/24 16:00 Ur Barbiturates Screen Negative ng/mL (Negative) 10/15/24 16:00 Ur Phencyclidine Scrn Negative ng/mL (Negative) 10/15/24 16:00 Ur Amphetamines Screen Negative ng/mL (Negative) 10/15/24 16:00 U Benzodiazepines Scrn Negative ng/mL (Negative) 10/15/24 16:00 Urine Cocaine Screen Negative ng/mL (Negative) 10/15/24 16:00 U Marijuana (THC) Screen Negative ng/mL (Negative) 10/15/24 16:00 Vitals Last Vital Signs Temp 97.9 F 10/20/24 13:07 Pulse 69 10/20/24 13:07 Resp 18 10/20/24 13:07 BP 114/73 10/20/24 13:07 Pulse Ox 93 10/20/24 13:07 O2 Del Method Room Air 10/19/24 19:40 Discharge Plan Discharge Patient Disposition: Home Condition: Stable Prescriptions: New magnesium L-lactate [Magtab] 84 mg Tablet Extended Release 84 mg PO BID 5 Days Qty: 10 0RF doxycycline monohydrate 100 mg Tablet 100 mg PO BID 5 Days Qty: 10 0RF furosemide [Lasix] 40 mg tablet 40 mg PO DAILY 30 Days Qty: 30 0RF potassium chloride [Klor-Con M20] 20 mEq tablet,ER particles/crystals 20 meq PO DAILY 30 Days Qty: 30 0RF Continued hydroxyzine HCl 50 mg tablet 50 mg PO QID PRN (Reason: for sleep or panic attack) Qty: 120 2RF paroxetine HCl 40 mg tablet 40 mg PO DAILY Qty: 30 11RF Xifaxan 550 mg Tablet 550 mg PO BID nadolol 20 mg Tablet 20 mg PO BEDTIME lactulose [Constulose] 10 gram/15 mL solution 15 ml PO DAILY PRN (Reason: Constipation) spironolactone 25 mg tablet 25 mg PO DAILY Other Ambulatory Orders: DME: [facility] (Order) Location: None Selected Ordered By: Eulalio Dasilva Referrals: In Home Service Setup [Other] Referral Note: You can call this number to see if you qualify for in home services. You will need your medicaid number available when you call. Estrella Gerard FNP [Primary Care Provider, Family Practice] Phyllis Roman MD [Physician, Cardiology] - 4-7 days Referral Note: chf Discharge Diet: Cardiac Discharge Activity: Resume usual activity Patient Instructions: Opioid Safety, Patient Portal & Christoph Instructions Activity Restrictions/Additional Instructions: - Limit fluid intake to 1 L of fluid a day - Please take Lasix 40 mg daily with potassium replacement therapy - See your primary care provider next week to recheck your creatinine or potassium levels - If you develop worsening shortness of breath, edema, please come back to the hospital - Follow-up with your heel sewer - Take antibiotics as prescribed for cellulitis Discharge Attestations Time Spent in Discharge Care*: greater than 30 min Quality Metrics Clinical Quality Measures [ No reported AMI, CVA or VTE this stay] Coding Level of Care Code 50416 Total time (in minutes) for Discharge: 45 Diagnoses Acute exacerbation of congestive heart failure I50.9 Edema of both legs R60.0 Abdominal ascites R18.8 Thrombocytopenia D69.6 CODY (acute kidney injury) N17.9 Cellulitis of lower extremity, unspecified laterality L03.119 Site of cellulitis: extremity Site of cellulitis of extremity: lower extremity Laterality: unspecified laterality UTI (urinary tract infection) N39.0 Transaminitis R74.01 Shortness of breath R06.02
[2024-10-20 14:51] LABS: Anion Gap 12.9 (5-19); Blood Urea Nitrogen 15 mg/dL (6-20); Calcium 8.0 mg/dL (8.5-10.5); Carbon Dioxide 31 mmol/L (22-29); Chloride 96 mmol/L (98-107); Creatinine Clr Calc Pharmacy 78.3223; Glucose 111 mg/dL (65-115); Osmolality Calculated 286 mOsm/kg (285-295); Sodium 137 mmol/L (136-145)
[2024-10-20 14:54] LABS: Potassium 2.9 mmol/L (3.5-5.1)
[2024-10-20] MEDS: pantoprazole 40 mg SDV IVP (17:01)
[2024-10-20 17:08] VITALS: BP 105/62; PULSE 69; RESP 18; TEMP 36.6; O2SAT 95
[2024-10-20 18:00] VITALS: BP 116/73; PULSE 70; RESP 18; TEMP 37; O2SAT 95
--- NOTE | 2024-10-20 18:20 | PC.NURSE ---
Patient is A&Ox3. Respirations even and non-labored on room air. Discharge instructions reviewed with patient and significant other at this time. Patient wheel chair to private vehicle at this time.
== END 2024-10-20 18:00 | disposition home or self-care (01) | DRG 432 ==
LOC: CSU 10-17 11:17 → MEDSURG 10-17 13:37
PROVIDERS: Admitting Provider Student in an Organized Health Care Education/Training Program; PCP Nurse Practitioner Family; Visit Provider Family Medicine
DX: K74.60 Unspecified cirrhosis of liver (principal); I50.33 Acute on chronic diastolic (congestive) heart failure; R18.8 Other ascites; L03.115 Cellulitis of right lower limb; N17.9 Acute kidney failure, unspecified; L03.116 Cellulitis of left lower limb; N39.0 Urinary tract infection, site not specified; D69.6 Thrombocytopenia, unspecified; B19.20 Unspecified viral hepatitis C without hepatic coma; E87.6 Hypokalemia
CPT/HCPCS: 36415; 36416; 49083; 51702; 71045; 80048; 80053; 80061; 80306; 80503; 81001; 82042; 82140; 82150; 82465; 82945; 82962; 83036; 83605; 83615; 83735; 83880; 83986; 84075; 84100; 84145; 84157; 84315; 84443; 84478; 84484; 84560; 85025; 85610; 85730; 86140; 87015; 87040; 87070; 87075; 87077; 87086; 87116; 87186; 87205; 87206; 87801; 88112; 88305; 89050; 93005; 94664; 96372; 96376; J0696; J1650; J1938; J2270; J2470; J3373; J3475; J3480; J9999; P9046

== ENCOUNTER → 2024-10-24 10:49 | Day surgery (SDC) | payer BC, MEDICAID, SELFPAY ==
[2024-05-17 15:33] VITALS: BP 150/84; BMI 31.3
[2024-10-24 11:21] VITALS: BP 137/75; PULSE 80; RESP 18; TEMP 36.1; O2SAT 93
--- NOTE | 2024-10-24 11:24 | US_ITS ---
WS: [id number] ULTRASOUND-GUIDED PARACENTESIS CLINICAL INFORMATION: Ascites Procedure Informed consent: The risks, benefits, and alternatives of the procedure were discussed with the patient. Verbal and written consent was obtained. Timeout: A timeout was performed to confirm the correct patient, procedure, and site. Preparation: A suitable skin site was identified. The patient was prepped and draped in usual sterile fashion. Lidocaine 1% was used for local anesthesia. Catheter: 4 Pashto One-step Yueh catheter. Side: LEFT lower quadrant. Fluid Volume: 8000 ml Color: Clear yellow DISPOSITION: Discarded safely. Complications: None. Patient disposition: Discharged from the department in stable condition. US/US paracentesis abd w [id number] IMPRESSION: Uncomplicated ultrasound-guided paracentesis. Removal of 8000 cc
[2024-10-24 11:27] LABS: Hematocrit 34.4 % (36-47); Hemoglobin 11.30 g/dL (11.27-16.99); Mean Corpuscular HGB Conc 32.8 g/dL (30-55); Mean Corpuscular Hemoglobin 28.5 pg (27-33); Mean Corpuscular Volume 86.6 fl (85-98); Nucleated Red Blood Cells % 0 %; Platelet Count 116 10^3/cmm (157-399); Red Blood Count 3.97 10^6/uL (3.85-5.65); White Blood Count 5.13 10^3/uL (3.29-11.43)
[2024-10-24 11:39] LABS: INR 1.19 (0.8-1.2); Prothrombin Time 16.00 SECONDS (12.1-14.9)
[2024-10-24 11:47] LABS: Alanine Aminotransferase 14 U/L (0-33); Albumin Level 2.8 g/dL (3.5-5.2); Alkaline Phosphatase 107 U/L (35-105); Anion Gap 12.2 (5-19); Aspartate Amino Transferase 28 U/L (0-32); Blood Urea Nitrogen 17 mg/dL (6-20); Calcium 8.3 mg/dL (8.5-10.5); Carbon Dioxide 31 mmol/L (22-29); Chloride 97 mmol/L (98-107); Creatinine Clr Calc Pharmacy 89.6681; Globulin 2.9 g/dL (1.3-4.6); Glucose 142 mg/dL (65-115); Osmolality Calculated 288 mOsm/kg (285-295); Potassium 3.2 mmol/L (3.5-5.1); Sodium 137 mmol/L (136-145); Total Protein 5.7 g/dL (6.6-8.7)
[2024-10-24 12:43] LABS: Cyto Order Verification No Order
[2024-10-24 12:44] LABS: Body Fluid Polynuclear #Cells 0.010; Monocytes # Body Fluid 0.050; Mononuclear WBC Body Fluid % 83.300 %; Polynuclear WBC Body Fluid % 16.700 %
[2024-10-24 12:45] LABS: Apprearance, Body Fluid CLOUDY; Color, Body Fluid PALE YELLOW; Fluid Laterality PERITONEAL FLUID; PATH Referral YES
[2024-10-24] MEDS: ALBUMIN IV (12:53)
== END ==
LOC: GILAB 10:49
PROVIDERS: Radiology Neuroradiology; PCP Nurse Practitioner Family; Visit Provider Internal Medicine Gastroenterology
PROC: (CPT 49082; principal; 2024-10-24 12:00)
DX: R18.8 Other ascites (principal); B19.20 Unspecified viral hepatitis C without hepatic coma; K74.69 Other cirrhosis of liver; K76.82 Hepatic encephalopathy
CPT/HCPCS: 49083; 80053; 80503; 85025; 85610; 87070; 87075; 87205; 89050; 96365; P9047

== ENCOUNTER 2024-10-26 01:59 | Emergency (ER) | payer BC, MEDICAID, SELFPAY ==
[2024-05-17 15:33] VITALS: BP 150/84; BMI 31.3
[2024-10-26 02:02] VITALS: BP 142/76; PULSE 67; RESP 16; TEMP 36.5; O2SAT 99; BMI 33.6
--- OUTSIDE RECORDS SUMMARY | 2024-10-26 02:04 | XMS_ITS | Encounter Summary ---
Author Organization [facility] Address [address] [place] [address] Care Team Providers Care Equipment Cleaner And Tester Name Role Phone Estrella Gerard Primary Care Provider [phone] Encounter Details Date Type Department Care Team (Late st Contact Info) Description 10/18/2024 External Device Data [facility] ABSTRACTION Provider, Abstract NO ADDRESS ON FILE Social History Tobacco Use Types Packs/Day Years Used Date Smoking Tobacco: Never Smokeless Tobacco: Never Alcohol Use Standard Drinks/Week Comments Not Currently 0 (1 standard drink = 0.6 oz pur e alcohol) Comments No Sex and Gender Information Value Date Recorded Sex Assigned at Not on file Legal Sex Female 10:22 PM CDT Gender Identity Not on file Sexual Orientation Not on file documented as of this encounter Plan of Treatment Not on file documented as of this encounter Visit Diagnoses Not on filedocumented in this encounter Care Teams Equipment Cleaner And Tester Relationship Specialty Start Date End Date Estrella Gerard FNP [address] [place] [id number] PCP - General Nurse Practitioner Family 05/18/21 documented as of this encounter
--- OUTSIDE RECORDS SUMMARY | 2024-10-26 02:04 | XMS_ITS | Clinical Summary ---
Author Organization [facility] Address [address] [place] [address] Phone Care Team Providers Care Boring Machine Operator Helper Name Role Phone Unavailable Primary Care Provider [...] (2 - Td or Tdap) 05/18/[address] [address] [address] NETWORK
--- OUTSIDE RECORDS SUMMARY | 2024-10-26 02:04 | XMS_ITS | Encounter Summary ---
Author Organization [facility] Address [address] [place] [address] Care Team Providers Care Vibratory Pile Driver Name Role Phone Estrella Gerard Primary Care Provider [phone]- [phone] Encounter Details Date Type Department Care Team ([facility] st Contact Info) Description 10/16/2024 Results Follow-Up [facility] Emergency Medicine [address] [place] [address] Shireen Mendez, RN URINE CULTURE Social History Tobacco Use Types Packs/Day Years [...] on filedocumented in this encounter Care Teams Vibratory Pile Driver Relationship Specialty Start Date End Date Estrella Gerard FNP [address] [place] [id number] PCP - General Nurse Practitioner Family 05/18/21 documented as of this encounter
--- OUTSIDE RECORDS SUMMARY | 2024-10-26 02:04 | XMS_ITS | Encounter Summary ---
Author Organization [facility] Address [address] [place] [address] Care Team Providers Care Tripe Washer Name Role Phone Estrella Gerard Primary Care Provider [phone]- [phone] Encounter Details Date Type Department Care Team [...] on filedocumented in this encounter Care Teams Tripe Washer Relationship Specialty Start Date End Date Estrella Gerard FNP [address] [place] [id number] PCP - General Nurse Practitioner Family 05/18/21 documented as of this encounter
--- OUTSIDE RECORDS SUMMARY | 2024-10-26 02:04 | XMS_ITS | Encounter Summary ---
Author Organization [facility] Address [address] [place] [address] Care Team Providers Care Roller Varnisher Name Role Phone Moustapha Estrella Kingsley [facility] Primary Care Provider [phone]- [phone] Reason for Visit * Reason Onset Date Comments Results 09/22/2024 Patient Communication Encounter Details Date Type Department Care Team (Latest Contact Info) Description 09/22/2024 Results Follow-Up [facility] Medicine [place] [address] [address] Zuleyka Regalado, [facility] [address] [address] BEBE SCREEN W/REFLEX, TSH, COMPREHENSIVE [...] hematology but is agreeable to going to [place] for referral. She states that she did have a colonoscopy and EGD in September of 2023. Martha REESE * Telephone Encounter - Martha [...] for a call to discuss results. Martha REESE * Telephone Encounter - Martha [...] for a call to discuss results. Martha REESE * Telephone Encounter - Yves Murphy - 09/26/2024 10:07 AM CDT Copied from [facility] #[id number]. Topic: CPA Information Request >> Sep 26, 2024 10:04 AM Yves Beauchamp wrote: Caller is returning phone call from clinic. Caller Name: Sandy Ernandez Patient/Caregiver Callback Number: [phone] (mobile) Clinic Left Note In Chart Is there a note from the clinic requesting the caller be transferred when they call back? No Are the credentials of the caregiver who called the patient molder inflated ball? Yes Call Notes: Communicated information that is [...] Martinez RN - 09/26/2024 9:00 AM CDT ----- [...] on filedocumented in this encounter Care Teams Roller Varnisher Relationship Specialty Start Date End Date Estrella Gerard FNP [address] [place] [address] PCP - General Nurse Practitioner Family 05/18/21 documented as of this encounter
--- OUTSIDE RECORDS SUMMARY | 2024-10-26 02:04 | XMS_ITS | Clinical Summary ---
Author Organization [facility] Address [address] [facility] [address] [place] [address] Phone Care Team Providers Care Museum Informatics Specialist Name Role Phone Ofe Gerardly Kingsley BENSON [...] mouth 1 time daily as needed. 06/09/2024 Active nadoloL (CORGARD) 20 mg tablet Take 20 mg by mouth daily at bedtime. Active PARoxetine HCl (PAXIL) 20 mg tablet Take 40 mg by mouth daily. Active furosemide (LASIX) 40 mg tablet Take 80 mg by mouth daily. Active spironolactone (ALDACTONE) 50 mg tablet Take 200 mg by mouth daily. 07/07/2024 Active lidocaine (lidocaine viscous 2%) 2 % SolutionIndicat ions:Stomatitis 5 mL by Mouth/Throat route every 6 hours as needed for Pain. 100 mL 09/20/2024 Active triamcinolone acetonide (KENALOG) 0.5 % CreamIndication s:Dermatitis,Pr uritus Apply to affected area 2 times daily. 30 Gram 09/20/2024 Active hydrOXYzine HCL (ATARAX) 25 mg tabletIndicatio ns:Pruritus Take 1 tab in am and 2 tabs in pm 90 Tablet 2 09/20/2024 Active Active Problems Problem Noted Date Diagnosed Date [...] Encounters Date Type Department Care Team Description 10/18/2024 External Device Data [facility] ABSTRACTION Provider, Abstract 10/18/2024 External Device Data [facility] ABSTRACTION Provider, Abstract 10/18/2024 External Device Data [facility] ABSTRACTION Provider, Abstract 10/18/2024 External Device Data [facility] ABSTRACTION Provider, Abstract 10/17/2024 External Device Data [facility] ABSTRACTION Provider, Abstract 10/16/2024 Results Follow-Up [facility] [address] [facility] [address] [place] [address] Shireen Mendez, RN URINE CULTURE 10/15/2024 2:15 AM CDT - 10/15/2024 12:55 PM CDT Emergency [facility] [address] [facility] [address] [place] [address] Kodi Roman, Decompensated HCV cirrhosis (CMS/HCC) (Primary Dx); Other ascites; Bilateral lower extremity edema; Hepatic encephalopathy (CMS/HCC); Methamphetamine abuse (CMS/HCC); Abnormal urinalysis Discharge Disposition: Acute Care Hospital 10/15/2024 Travel 09/27/2024 Orders Only [address] [place] [address] Zuleyka Regalaod, MARCELINO Anemia, unspecified type (Primary Dx) 09/26/2024 External Device Data [facility] ABSTRACTION Provider, Abstract 09/22/2024 Results Follow-Up [address] [place] [address] Zuleyka Regalado, RETAIL PLANNING MANAGER BEBE SCREEN W/REFLEX, TSH, COMPREHENSIVE METABOLIC PANEL, Additional followed-up results: 5 09/20/2024 3:40 PM CDT Office Visit [address] [place] [phone] Zuleyka Regalado, MARCELINO Stomatitis (Primary Dx); Dermatitis; Primary insomnia; Pruritus 09/20/2024 External Device Data [facility] ABSTRACTION Provider, Abstract 09/19/2024 External Device Data [facility] ABSTRACTION Provider, Abstract 08/14/2024 5:20 PM CDT Office Visit [address] [place] [phone] Tara Mckeon FNP History of falling (Primary Dx); Chest pain on breathing; Other ascites; 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); Secondary esophageal varices with bleeding ([facility]/HCC) 08/14/[address] [place] [address] Tara Mckeon FNP Information 08/11/2024 10:41 AM CDT - 08/11/2024 11:59 PM CDT Hospital Encounter [facility] [address] [facility] [address] [place] [phone] Estrella Gerard FNP Discharge Disposition: Home or Self Care 08/11/2024 10:40 AM CDT - 08/11/2024 11:59 PM CDT Hospital Encounter [facility] [address] [facility] [address] [place] [phone] Estrella Gerard FNP Discharge Disposition: Home or Self Care 08/11/2024 Orders Only [facility] Admitting [address] [place] [phone] Estrella Gerard, MARCELINO Low back pain with sciatica, sciatica laterality unspecified, unspecified back pain laterality, unspecified chronicity (Primary Dx); Other chest pain 08/08/2024 External Device Data [facility] ABSTRACTION Provider, Abstract 08/08/2024 External Device Data [facility] ABSTRACTION Provider, Abstract 08/02/2024 Results Follow-Up [address] [phone] Breanna, Justine Laureano, MARCELINO CBC WITH DIFFERENTIAL, COMPREHENSIVE METABOLIC PANEL, AMMONIA LEVEL 08/02/2024 Results Follow-Up [address] [phone] Francy Zurita NP XR ABDOMEN 1 VW 08/01/2024 3:42 PM CDT - 08/01/2024 11:59 PM CDT Hospital Encounter [facility] [address] [place] [phone] Francy Zurita NP Discharge Disposition: Home or Self Care 08/01/2024 2:40 PM CDT Office Visit [address] [phone] Francy Zurita NP Flank pain (Primary Dx); Screening mammogram, encounter for; Vaginal bleeding; Dizziness; Loss of balance; History of fall; 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); Secondary esophageal varices with bleeding (CMS/HCC) 08/01/[address] [phone] Francy Zurita NP Patient Communication from Last 3 Months Immunizations Immunization Administration [...] 05/18/2020, 05/18/2020 COLORECTAL SCREENING 09/28/2033 09/29/2023, 09/29/19 24 Colorectal Cancer Screening 09/28/2033 Procedures Procedure Name Priority Date/Time Associated Diagnosis Comments TELEMETRY REPORT 10/16/2024 10:1 5 AM CDT URINALYSIS MICROSCOPY ONLY Stat 10/15/2024 3:35 AM CDT DRUG SCREEN, URINE Stat 10/15/2024 3: 35 AM CDT URINALYSIS W/REFLEX MICROSCOPIC Stat 10/15/2024 3:35 AM CDT URINE CULTURE Stat 10/15/2024 3:35 AM CDT XR ABDOMEN [...] Recently Relevant to Health Maintenance Results * TELEMETRY REPORT (10/16/2024 10:15 AM CDT) us Provider Scanning ECG ORDERABLES Final Result * (ABNORMAL) URINALYSIS MICROSCOPY ONLY (10/15/2024 3:35 AM CDT) WBC UA >100(A) 0 - 2 /hpf 10/15/2024 3:49 AM CDT [facility] RBC UA 3-5(A) 0 - 2 /hpf 10/15/2024 3:49 AM CDT [facility] BACTERIA UA 2+(A) Negative /hpf 10/15/2024 3:49 AM CDT [facility] EPITHELIAL CELLS, URINE 6-10(A) 0 - 5 /hpf 10/15/2024 3:49 AM CDT [facility] Urine URINE SPECIMEN OBTAINED BY CLEAN CATCH PROCEDURE / Unknown Collection / Unknown 10/15/2024 3:35 AM CDT 10/15/2024 3:39 AM CDT us Kodi Roman DO URINE ORDERABLES Final Result Performing Organization Address City/State/[facility] Co de Phone Number [facility] # [id number] [address] [place] [address] * (ABNORMAL) DRUG SCREEN, URINE (10/15/2024 3:35 AM CDT) CANNABINOIDS QUAL, URINE Negative Negative 10/15/2024 3:53 AM CDT [facility] PCP QUAL, URINE Negative Negative 3:53 AM CDT [facility] COCAINE QUAL URINE Negative Negative 2024 3:53 AM CDT [facility] METHAMPHETAMINE QUAL, URINE Presumptive Positive(A) Negative 10/15/2024 3:53 AM CDT [facility] OPIATE QUAL, URINE Negative Negative 2024 3:53 AM CDT [facility] AMPHETAMINE QUAL, URINE Presumptive Positive(A) Negative 10/15/2024 3:53 AM CDT [facility] BENZODIAZEPINE QUAL, URINE Negative Negative 10/15/2024 3:53 AM CDT [facility] TRICYCLICS QUAL, URINE Negative Negative 10/15/2024 3:53 AM CDT [facility] METHADONE QUAL, URINE Negative Negative 10/15/2024 3:53 AM CDT [facility] BARBITURATE QUAL, URINE Negative Negative 10/15/2024 3:53 AM CDT [facility] OXYCODONE QUAL, URINE Negative Negative 10/15/2024 3:53 AM T [facility] Urine URINE SPECIMEN OBTAINED BY CLEAN CATCH PROCEDURE / Unknown Collection / Unknown 10/15/2024 3:35 AM CDT 10/15/2024 3:39 AM CDT formerly [facility] - 10/15/2024 3:53 AM CDT This test [...] Y Roman DO URINE ORDERABLES Final Result [facility] CLIA # [id number] [address] [place] [address] * (ABNORMAL) URINALYSIS WITH REFLEX MICROSCOPIC (10/15/2024 3:35 AM CDT) COLOR UA Yellow Pale to Dark Yellow 10/15/2024 3:49 AM T [facility] CLARITY UA Slightly Cloudy(A) Clear 10/15/2024 3:49 AM T [facility] SPECIFIC GRAVITY UA 1.015 1.003 - 1.035 10/15/2024 3:49 AM [facility] PH UA 6.0 5.0 - 8.0 10/15/2024 3:49 AM CDT [facility] LEUKOCYTE ESTERASE UA 2+(A) Negative 10/15/2024 3:49 AM CDT [facility] NITRITE UA Negative Negative 10/15/2024 3:49 AM CDT [facility] PROTEIN UA 1+(A) Negative 10/15/2024 3:49 AM CDT [facility] GLUCOSE UA Negative Negative 10/15/2024 3:49 AM CDT [facility] KETONES UA Negative Negative 10/15/2024 3:49 AM CDT [facility] UROBILINOGEN UA 1.0 <2.0 mg/dL 3:49 AM CDT [facility] BILIRUBIN UA 1+(A) Negative 10/15/2024 3:49 AM CDT [facility] BLOOD UA 2+(A) Negative 10/15/2024 3:49 AM CDT [facility] Urine URINE SPECIMEN OBTAINED BY CLEAN CATCH PROCEDURE / Unknown Collection / Unknown 10/15/2024 3:35 AM CDT 10/15/2024 3:39 AM CDT us Kodi Y Roman DO URINE ORDERABLES Final Result [facility] # [id number] [address] [place] [address] * (ABNORMAL) URINE CULTURE (10/15/2024 3:35 AM CDT) CULTURE ENTEROCOCCUS FAECALIS(A) FAISAL MCG/ML 10/17/2024 7:25 AM CDT [facility] Urine URINE SPECIMEN OBTAINED BY CLEAN CATCH PROCEDURE / Unknown Collection / Unknown 10/15/2024 3:35 AM CDT 10/15/2024 3:39 AM CDT Narrative Organism Antibiotic Method Susceptibility Enterococcus faecalis AMPICILLIN FAISAL MCG/ML <=2 mcg/mL: Susceptible Enterococcus faecalis VANCOMYCIN FAISAL MCG/ML 2 mcg/mL: Susceptible Enterococcus faecalis CIPROFLOXACIN FAISAL MCG/ML <=0.5 mcg/mL: Susceptible Enterococcus faecalis LEVOFLOXACIN FAISAL MCG/ML 1 mcg/mL: Susceptible Enterococcus faecalis NITROFURANTOIN FAISAL MCG/ML <=16 mcg/mL: Susceptible Matias Hernandez MD MICROBIOLOGY - GENERAL ORDERABL ES Edited Result - Final [facility] # [id number] [facility] [address] [place] [address] * XR ABDOMEN ACUTE SERIES 2+ VWS [...] 2:50 AM CDT Kodi Roman DO 10/15/2024 7:05 PM EKG Interpretation Date/Time: 10/15/2024 2:50 AM Performed by: Kodi Roman DO Authorized by: Kodi Roman DO ECG interpreted by ED Physician in the absence of a house painter helper: yes Rate: ECG rate: 68 ECG rate assessment: age appropriate Rhythm: Rhythm Origin: sinus Rhythm morphology: narrow Ectopy: Ectopy origin: PVCs Stephens: QRS axis: Normal Intervals: prolonged QTC interval QRSTT: QRSTT changes: Yes Inferior (RCA) II, III, aVF: Q waves in III. Comments: Artifact noted Kodi Roman DO ECG ORDERABLES Final Result * (ABNORMAL) CBC WITH DIFFERENTIAL (10/15/2024 2:45 AM CDT) Only the most recent of3 resultswithin the time period is included. WBC 5.5 4.0 - 10.0 K/uL 10/15/2024 2:57 AM [facility] RBC 4.44 3.93 - 5.22 M/uL 10/15/2024 2:57 AM [facility] HEMOGLOBIN 12.3 11.2 - 15.7 g/dL 10/15/2024 2:57 AM [facility] HEMATOCRIT 36.8 34.1 - 44.9 % 10/15/2024 2:57 AM [facility] MCV 82.9 79.4 - 94.8 fL 10/15/2024 2:57 AM [facility] MCH 27.7 25.6 - 32.2 pg 10/15/2024 2:57 AM [facility] MCHC 33.4 32.2 - 35.5 g/dL 10/15/2024 2:57 AM [facility] RDW 14.8(H) 11.0 - 14.5 % 10/15/2024 2:57 AM [facility] RDW-STDEV 44.7 36.9 - 56.9 fL 10/15/2024 2:57 AM [facility] PLATELETS 131(L) 163 - 337 K/uL 10/15/2024 2:57 AM [facility] MPV 11.4 10.0 - 14.8 fL 10/15/2024 2:57 AM [facility] NEUTROPHILS 62 34 - 71 % 10/15/2024 2:57 AM [facility] LYMPHOCYTES 17(L) 19 - 52 % 10/15/2024 2:57 AM [facility] MONOCYTES 17(H) 5 - 13 % 10/15/2024 2:57 AM [facility] EOSINOPHILS 3 1 - 6 % 10/15/2024 2:57 AM [facility] BASOPHILS 1 0 - 1 % 10/15/2024 2:57 AM [facility] IMMATURE GRANULOCYTES 1 % 10/15/2024 2:57 AM [facility] NEUTROPHIL ABSOLUTE 3.41 1.56 - 6.13 K/uL 10/15/2024 2:57 AM [facility] LYMPHOCYTE ABSOLUTE 0.93(L) 1.20 - 3.40 K/uL 10/15/2024 2:57 AM [facility] MONOCYTE ABSOLUTE 0.93(H) 0.24 - 0.36 K/uL 10/15/2024 2:57 AM [facility] EOSINOPHIL ABSOLUTE 0.15 0.04 - 0.36 K/uL 10/15/2024 2:57 AM [facility] BASOPHILS ABSOLUTE 0.05 0.01 - 0.08 K/uL 10/15/2024 2:57 AM [facility] IMMATURE GRANULOCYTES ABSOLUTE 0.03 K/uL 10/15/2024 2:57 AM [facility] Blood Collection / Unknown 10/15/2024 2:45 AM CDT 10/15/2024 2:51 AM CDT us Kodi Y Roman DO HEMATOLOGY ORDERABLES Final Resu lt [facility] CLIA # [id number] [address] [place] [address] * (ABNORMAL) BRAIN NATRIURETIC PEPTIDE, BNP OR PROBNP (10/15/2024 2:45 AM CDT) PROBNP, N TERMINAL 1,727(H) 0 - 125 pg/mL 10/15/2024 3:10 AM CDT [facility] Comment: INTERPRETIVE COMMENT based on diagnosis: Diagnostic [...] ORDERABLES Final Resul t Performing Organization Address City/[facility]/ZIP Co de Phone Number [facility] # [id number] [address] [place] [address] * MAGNESIUM LEVEL (10/15/2024 2:45 AM CDT) MAGNESIUM 2.0 1.6 - 2.6 mg/dL 10/15/2024 3:10 AM CDT [facility] Blood Collection / Unknown 10/15/2024 2:45 AM CDT 10/15/2024 2:51 AM CDT us Kodi Y Roman DO CHEMISTRY ORDERABLES Final Resul t Performing Organization Address City/[facility]/ZIP Co de Phone Number [facility] CLIA # [id number] [address] [place] [address] * (ABNORMAL) LIPASE (10/15/2024 2:45 AM CDT) LIPASE 98(H) 13 - 60 U/L 10/15/2024 3:10 AM CDT [facility] Blood Collection / Unknown 10/15/2024 2:45 AM CDT 10/15/2024 2:51 AM CDT Kodi Y Roman DO CHEMISTRY ORDERABLES Final Resul t Performing Organization Address [facility] Co de Phone Number [facility] CLIA # [id number] [address] [place] [address] * (ABNORMAL) AMMONIA LEVEL (10/15/2024 2:45 AM CDT) Only the most recent of2 resultswithin the time period is included. AMMONIA 111.0(H) 11.0 - 51.0 umol/L 10/15/2024 3:14 AM CDT [facility] Blood, venous Collection / Unknown 10/15/2024 2:45 AM CDT 10/15/2024 2:51 AM CDT us Kodi Y Roman DO CHEMISTRY ORDERABLES Final Resul t Performing Organization Address [facility] Co de Phone Number [facility] CLIA # [id number] [address] [place] [address] * ETHANOL LEVEL (10/15/2024 2:45 AM CDT) ETHANOL <10.10 <10.10 mg/dL 10/15/2024 3:10 AM CDT [facility] ETHANOL % <0.01 %w/v 10/15/2024 3:10 AM CDT [facility] Blood Collection / Unknown 10/15/2024 2:45 AM CDT 10/15/2024 2:51 AM CDT us Kodiannie Huertaan DO CHEMISTRY ORDERABLES Final Resul t [facility] # [id number] [address] [place] [address] * (ABNORMAL) COMPREHENSIVE METABOLIC PANEL (10/15/2024 2:45 AM CDT) Only the most recent of3 resultswithin the time period is included. SODIUM 134(L) 136 - 145 mmol/L 10/15/2024 3:10 AM T [facility] POTASSIUM 4.1 3.5 - 5.1 mmol/L 10/15/2024 3:10 AM [facility] CHLORIDE 101 98 - 107 mmol/L 10/15/2024 3:10 AM [facility] CO2 23 22 - 29 mmol/L 10/15/2024 3:10 AM [facility] CALCIUM 8.8 8.6 - 10.0 mg/dL 10/15/2024 3:10 AM [facility] BUN 20 6 - 20 mg/dL 10/15/2024 3:10 AM [facility] CREATININE 1.51(H) 0.51 - 0.95 mg/dL 10/15/2024 3:10 AM [facility] GLUCOSE 97 74 - 99 mg/dL 10/15/2024 3:10 AM [facility] TOTAL PROTEIN 6.2(L) 6.6 - 8.7 g/dL 10/15/2024 3:10 AM [facility] ALBUMIN 2.8(L) 3.5 - 5.2 g/dL 10/15/2024 3:10 AM [facility] BILIRUBIN TOTAL 1.6(H) 0.0 - 1.2 mg/dL 10/15/2024 3:10 AM [facility] ALKALINE PHOSPHATASE 105(H) 35 - 104 U/L 10/15/2024 3:10 AM [facility] AST 61(H) 0 - 35 U/L 10/15/2024 3:10 AM CDT [facility] ALT 27 0 - 35 U/L 10/15/2024 3:10 AM CDT [facility] GFR 40(L) >=60 mL/min/1.7 3 sq meter 10/15/2024 3:10 AM CDT [facility] Comment:eGFR calculated with 2020 CKD-EPI equation. Vegetarian diet, extremely high or low muscle mass, and may affect results. Cystatin C with Glomerular Filtration Rate is a suitable alternative for these patients. ANION GAP 10 5 - 20 mmol/L 10/15/2024 3:10 AM CDT [facility] Blood Collection / Unknown 10/15/2024 2:45 AM CDT 10/15/2024 2:51 AM CDT us Kodi Y Roman DO CHEMISTRY ORDERABLES Final Resul t [facility] CLIA # [id number] [address] [place] [address] * ALLERGY PANEL, FOOD AND TREE NUTS [...] analytical performance characteristics have been determined by [employer]. It has not been cleared or approved by the U.S. Food and Drug Administration. This assay has been validated pursuant to the CLIA regulations and is used for clinical purposes. Test Performed at: [facility] [address] [facility] [place] [address] Yuriy Bridges MD Blood 09/20/2024 4:24 PM CDT 09/22/2024 5:11 AM CDT Zuleyka Regalado [facility] CHEMISTRY ORDERABLES Fin al Result [facility] [phone] [facility] Hepa Wash[address] [place] [address] * ALPHA-GAL PANEL (09/20/2024 4:24 PM CDT) ALLERGEN BEEF <0.10 kU/L [place] [employer] [facility]/N [employer] [facility], ALLERGEN BEEF (F27) CLASS 0 [facility]/N [email or web address] [facility], RIBERA (F88) IGE <0.10 kU/L [facility], ALLERGEN RIBERA (F88) CLASS 0 [facility], ALLERGEN PORK <0.10 kU/L [facility]/N [employer] [facility], ALLERGEN PORK (F26) CLASS 0 [facility]/N [facility], GALACTOSE - ALPHA -1, 3 - GALACTOSE, IGE <0.10 <0.10 kU/L [facility]/N [employer] [facility], Comment: Results above 0.1 kU/L indicate an allergen-specific IgE sensitization to efxrxicuw-r-5,3-galactose, and such patients are at risk for [...] method. Additional information can be found at http://[email or web address].Traction Test Performed at: [facility], [id number] [place] [phone] Lisa Jeter MD,PhD,[place] Blood 09/20/2024 4:24 PM CDT 09/22/2024 5:11 AM CDT Zuleyka Regalado RETAIL PLANNING MANAGER CHEMISTRY ORDERABLES Fin al Result [facility] [phone] [facility], [address] [place] [address] * (ABNORMAL) CELIAC DISEASE ANTIBODIES (09/20/2024 4:24 PM CDT) Pathologist [facility] CELIAC SEROLOGY INTER [facility] Comment: No serological evidence for celiac disease is present. tTg may normalize in individuals with celiac disease who maintain a gluten free diet. If high suspicion of celiac disease, consider HLA DQ2 and DQ8 testing to rule out celiac disease. TRANSGLUTAMINASE IGA AB <1.0 U/mL [facility] Comment: Value Interpretation ----- <15.0 Antibody not detected > or = 15.0 Antibody detected IGA 400(H) 47 - 310 mg/dL [facility] Comment: Test Performed at: [facility] [address] [place] [address] Alberto Humphrey Blood 09/20/2024 4:24 PM CDT 09/22/2024 5:11 AM CDT Zuleyka Regalado [facility] CHEMISTRY ORDERABLES Fin al Result Performing Organization Address [facility] Co de Phone Number [facility] [phone] [facility] [address] [facility] [address] * BEBE SCREEN W/REFLEX (09/20/2024 4:24 PM CDT) BEBE SCREEN NEGATIVE NEGATIVE [facility] [place] Comment: BEBE IFA is a first line [...] AC-0: Negative International Consensus on BEBE Patterns (https://doi.org/10.1515/xrbc-4086-6702) For additional information, please refer to http://education.GoGo Labs/faq/HDU660 (This link is being provided for informational/ educational purposes only.) Test Performed at: [facility] [address] [place] [address] Yuriy Bridges MD Blood 09/20/2024 4:24 PM CDT 09/22/2024 5:11 AM CDT Zuleyka Varnerriott [facility] CHEMISTRY ORDERABLES Fin al Result Performing Organization Address City/[facility]/ZIP Co de Phone Number [facility] [phone] [facility] Surgery[facility] [address] [place] [address] * TSH (09/20/2024 4:24 PM CDT) TSH 1.43 0.40 - 4.50 mIU/L [facility] Comment: Test Performed at: [facility] [address] [place] [address] Yuriy Bridges MD Blood 09/20/2024 4:24 PM CDT 09/22/2024 5:11 AM CDT Zuleyka Jessica Regalado RETAIL PLANNING MANAGER CHEMISTRY ORDERABLES Fin al Result Performing Organization Address City/[facility] Co de Phone Number [facility] [phone] [facility] [address] * VITAMIN B12 LEVEL (09/20/2024 4:24 PM CDT) VITAMIN B12 461 200 - 1100 pg/mL [facility] Comment: Test Performed at: [facility] [address] [place] [address] Yuriy Bridges MD Blood 09/20/2024 4:24 PM CDT 09/22/2024 5:11 AM CDT Zuleyka Jessica Regalado RETAIL PLANNING MANAGER CHEMISTRY ORDERABLES Fin al Result Performing Organization Address [facility] Co de Phone Number [facility] [phone] [facility] [address] [place] [address] * XR LUMBAR SPINE 2 OR 3 [...] with preserved intervertebral disc heights. Remainder unremarkable. [facility] DIAGNOSTIC IMAGING ORDERABL ES Final Result * [...] identified. The osseous structures appear grossly intact. [facility] DIAGNOSTIC IMAGING ORDERABL ES Final Result * [...] well seen on today's exam. Francy Zurita NP DIAGNOSTIC IMAGING ORDERABLES Final Result * (ABNORMAL) POC URINALYSIS DIPSTICK AUTOMATED (08/01/2024 2:50 PM CDT) COLOR UA POC Yellow Pale to Dark Yellow [facility] CLARITY UA POC Clear Clear, Other [facility] GLUCOSE UA POC Negative Negative, Normal [facility] BILIRUBIN UA POC Negative Negative [facility] KETONES UA POC Negative Negative [facility] SPECIFIC GRAVITY UA POC 1.015 1.000 - 1.030 [facility] BLOOD UA POC 3+(A) Negative [facility] PH UA POC 6.0 5.0 - 8.0 [facility] IC [facility] PROTEIN UA POC Negative Negative [facility] UROBILINOGEN UA POC >8.0(A) <2.0 mg/dL [facility] NITRITE UA POC Negative Negative [facility] LEUKOCYTE ESTERASE UA POC 1+(A) Negative [facility] KIT LOT NUMBER POC [phone] [facility] KIT EXP DATE POC [id number] [facility] Urine 08/01/2024 2:50 PM CDT us Francy Zurita CORPORATE DIRECTOR TALENT ASSESSMENT POINT OF CARE TESTING Final Re sult [facility] CLIA# [id number] [address] [place] [address] * COLONOSCOPY REPORT (09/29/2023 2:57 PM CDT) Narrative Procedure Note Steven Francis MD - 09/29/2023 2:57 PM CDT [facility] GI Patient Name: Sandy Ernandez Procedure Date: [...] 2:39:39 PM Scope Out: 2:52:28 PM [address] [place], [place] Steven Francis MD GI PROCEDURE ORDERABLES F inal Result from Last 3 Months or Most Recently Relevant to Health Maintenance Insurance [facility] MEDICAID Advance Directives For more information, please contact: [phone] * Full Code (Latest Code Status on File) Date Activated Date Inactivated Comments 09/29/2023 1:00 PM 09/29/2023 5:24 PM Care Teams [employer] Specialist Relationship Specialty Start Date End Date Estrella Gerard FNP [address] [place] [phone] PCP - General Nurse Practitioner Family 05/18/21
[2024-10-26 02:41] LABS: Hematocrit 33.3 % (36-47); Hemoglobin 10.60 g/dL (11.27-16.99); Mean Corpuscular HGB Conc 31.8 g/dL (30-55); Mean Corpuscular Hemoglobin 28.0 pg (27-33); Mean Corpuscular Volume 88.1 fl (85-98); Nucleated Red Blood Cells % 0 %; Platelet Count 116 10^3/cmm (157-399); Red Blood Count 3.78 10^6/uL (3.85-5.65); White Blood Count 4.17 10^3/uL (3.29-11.43)
[2024-10-26 02:57] LABS: Alanine Aminotransferase 11 U/L (0-33); Albumin Level 2.7 g/dL (3.5-5.2); Alkaline Phosphatase 102 U/L (35-105); Blood Urea Nitrogen 18 mg/dL (6-20); Calcium 8.3 mg/dL (8.5-10.5); Carbon Dioxide 30 mmol/L (22-29); Chloride 96 mmol/L (98-107); Creatinine Clr Calc Pharmacy 63.1123; Globulin 2.8 g/dL (1.3-4.6); Glucose 81 mg/dL (65-115); Lipase 86 U/L (13-60); Osmolality Calculated 279 mOsm/kg (285-295); Sodium 134 mmol/L (136-145); Total Protein 5.5 g/dL (6.6-8.7)
[2024-10-26 02:59] LABS: Anion Gap 11.4 (5-19); Aspartate Amino Transferase 29 U/L (0-32); Potassium 3.4 mmol/L (3.5-5.1)
[2024-10-26 03:05] VITALS: BP 151/77; PULSE 67; O2SAT 98
[2024-10-26 03:11] LABS: Glucose Urine UA Negative (Normal); Nitrate Urine Negative (Negative); Specific Gravity, Urine 1.019 (1.005-1.030)
[2024-10-26 03:18] LABS: Ammonia 65 umol/L (11-51)
[2024-10-26 04:13] VITALS: BP 121/66; PULSE 66; O2SAT 93
--- NOTE | 2024-10-26 04:21 | W.ED.ABDPA2 ---
HPI - Abdominal Pain General: Chief Complaint: Abdominal Pain Stated Complaint: Abd pain, serosis of Liver Time Seen by Provider: 10/26/24 04:15 History of Present Illness: Patient presents with bilateral flank pain, worse on one side, that began 4 days ago. The pain is described as constant and severe, with episodes of 'catching' that make it difficult to breathe. Patient reports inability to lie on the affected side and disturbed sleep due to pain. Denies fever or dysuria. Patient has a history of cirrhosis with ascites requiring regular paracentesis, with most recent drainage of 8 liters on Wednesday (2 days ago). Patient reports the pain was present before the paracentesis. Patient denies taking any pain medication at home for the current symptoms, stating they were hoping it would resolve spontaneously. Patient reports previous history of urinary tract infections. Patient mentions intolerance to Toradol, which causes nausea. Patient has a follow-up appointment with their primary care physician in [place] today at 10:40 AM. Related Data Home Medications ?Medication ?Instructions ?Recorded ?Confirmed rifaximin 550 mg tablet (Xifaxan) 550 mg PO BID 12/10/23 10/23/24 nadolol 20 mg tablet 20 mg PO BEDTIME 06/13/24 10/23/24 spironolactone 25 mg tablet 25 mg PO DAILY 09/05/24 10/23/24 Previous Rx's ?Medication ?Instructions ?Recorded hydroxyzine HCl 50 mg tablet 50 mg PO QID PRN for sleep or 10/10/24 panic attack #120 tabs paroxetine HCl 40 mg tablet 40 mg PO DAILY #30 tabs 10/10/24 furosemide 40 mg tablet (Lasix) 40 mg PO DAILY 30 days #30 tabs 10/20/24 lactulose 10 gram/15 mL oral 15 ml PO DAILY Constipation 30 10/20/24 solution (Constulose) days #1,200 mL potassium chloride 20 mEq 40 meq (2 x 20 mEq) PO DAILY 30 10/20/24 tablet,extended days #60 tabs release(part/cryst) (Klor-Con M) cephalexin 500 mg capsule 500 mg PO TID 7 days #21 caps 10/26/24 Allergies Allergy/AdvReac Type Severity Reaction Status Date / Time tramadol Allergy ADR-Nausea Verified 10/23/24 09:06 NSAIDS (Non-Steroidal AdvReac Unknown Verified 10/23/24 09:06 Anti-Inflamma Review of Systems General: Reports: 10 or more systems reviewed and unremarkable except in HPI and below PFSH ED PFSH: Medical History (Updated 10/26/24 @ 04:27 by Leo Lundberg DO) Enterococcus UTI Thrombocytopenia S/P abdominal paracentesis COVID-19 Breast lump Screening breast examination Screening for cervical cancer Calculus of kidney Abnormal CT of the abdomen Screening for osteoporosis Elevated TSH Psychiatric care Cellulitis Cellulitis of leg, right COVID-19 Hepatitis C Family History Mother Hypertension Family/Other Hypertension Denies family history of Diabetes CAD (coronary artery disease) Cancer Social History Smoking and tobacco/nicotine status: never used tobacco/nicotine Second hand smoke exposure: Yes Alcohol intake: former Former alcohol use details: 25 years ago Substance/Drug Use: former Former substance use details: 5-6 years ago Adopted: No Caregiver/support person: No Lives independently: Yes Household members: friend(s) Housing: House Marital status: Marital status details: while in residential, never met him outside of residential Number of children: 2 Number of grandchildren: 5 Highest education level completed: Some College, No Degree service: No Current occupational status: disabled Current occupation: working on getting disability Current occupational exposures/hazards: No Pets and animals: Yes Pets & animals: dog(s) Leisure activites: other Leisure activities details: watch movies and play with grand kids Sexually active: No Do you think of yourself as: Straight/Heterosexual Current gender identity: Female Lauren/Moravian: Shinto Special lauren needs: No Agree to transfusion: Yes Female Reproductive History: Para: 2 Physical Exam Const: COMMON NORMALS: no acute distress, patient oriented x3, alert and well nourished HENMT: COMMON NORMALS: normocephalic HEAD & SCALP: normocephalic Eye: COMMON NORMALS: Equal, round and reactive pupils present, EOMs intact bilaterally and conjunctivae normal CONJUNCTIVA: Yes conjunctivae normal PUPIL: Yes Equal, round and reactive pupils present Chest: COMMONS NORMALS: normal inspection of the chest and normal palpation of entire chest wall Resp: COMMON NORMALS: normal respiratory effort, No retractions, No use of accessory muscles, clear to auscultation bilaterally and percussion normal AUSCULTATION: clear to auscultation bilaterally PERCUSSION: percussion normal Cardio: COMMON NORMALS: regular rate and regular rhythm RATE: regular rate RHYTHM: regular rhythm GI: COMMON NORMALS: Soft to palpation, non-tender, no masses and no bruits; negative for No hepatosplenomegaly present PALPATION: Yes Soft to palpation, No No hepatosplenomegaly present and Yes Ascites present : COMMON NORMALS: Yes no CVA tenderness BLADDER/KIDNEY EXAM: Yes no CVA tenderness Back/Pelvis: COMMON NORMALS: no CVA tenderness Extremity: COMMON NORMALS: normal to inspection, full ROM, capillary refill normal, no joint enlargement, no clubbing, cyanosis or edema, no calf tenderness and no pedal edema Neuro: COMMON NORMALS: patient oriented x3 SENSORIUM/ORIENTATION: Yes alert Skin: COMMON NORMALS: no rashes or lesions noted, turgor normal and no jaundice GENERAL SKIN EXAM: no rashes or lesions noted and turgor normal Course Vital Signs: Vital signs: Vital Signs Temperature 97.7 F 10/26/24 02:02 Pulse Rate 66 10/26/24 04:13 Respiratory Rate 16 10/26/24 02:02 Blood Pressure 121/66 10/26/24 04:13 Pulse Oximetry 93 10/26/24 04:13 Oxygen Delivery Me thod Room Air 10/26/24 02:02 MDM - Abdominal Pain Medical Decision Making 1. Acute Flank Pain with Suspected Urinary Tract Infection: - Laboratory findings consistent with urinary tract infection - Plan to administer IV pain medication for acute symptom relief - Will initiate antibiotic therapy for presumed UTI - Patient advised to follow up with primary care physician today as scheduled 2. Cirrhosis with Ascites: - Recent paracentesis (8 liters) on Wednesday - Appears to have rapid reaccumulation of fluid - Will defer management to primary care physician - Patient reports regular Wednesday paracentesis appointments Based on her history and physical I do not think she has a stone or more serious entity. She reports she does not feel like this is related to her ascites she is generally nontender although she does have a fair amount of ascites it appears. The patient like to follow-up with her primary care later today as scheduled I will treat her symptoms start her on antibiotics and recommend that she follow-up. Lab Data 10/26/24 02:38 10/26/24 02:38 Labs/Radiology: Laboratory Results WBC 4.17 10^3/uL (3.29-11.43) 10/26/24 02:38 RBC 3.78 10^6/uL (3.85-5.65) L 10/26/24 02:38 Hgb 10.60 g/dL (11.27-16.99) L 10/26/24 02:38 Hct 33.3 % (36-47) L 10/26/24 02:38 MCV 88.1 fl (85-98) 10/26/24 02:38 MCH 28.0 pg (27-33) 10/26/24 02:38 MCHC 31.8 g/dL (30-55) 10/26/24 02:38 RDW 15.3 % (12.1-15.1) H 10/26/24 02:38 Plt Count 116 10^3/cmm (157-399) L 10/26/24 02:38 MPV 12.3 fL (7.4-10.4) H 10/26/24 02:38 Neut % (Auto) 64.3 % 10/26/24 02:38 Lymph % (Auto) 17.5 % 10/26/24 02:38 [place] % (Auto) 12.9 % 10/26/24 02:38 Eos % (Auto) 4.1 % 10/26/24 02:38 Baso % (Auto) 1.0 % 10/26/24 02:38 Neut # (Auto) 2.68 10^3/uL (1.8-7.7) 10/26/24 02:38 Lymph # (Auto) 0.7 10^3/uL (0.8-4.8) L 10/26/24 02:38 [place] # (Auto) 0.5 10^3/uL (0.2-0.9) 10/26/24 02:38 Eos # (Auto) 0.2 10^3/uL (0.0-0.8) 10/26/24 02:38 Baso # (Auto) 0.0 10^3/uL (0.0-0.1) 10/26/24 02:38 Nucleated RBC % (auto) 0 % 10/26/24 02:38 Nucleated RBCs # 0.0 /100WBC 10/26/24 02:38 Sodium 134 mmol/L (136-145) L 10/26/24 02:38 Potassium 3.4 mmol/L (3.5-5.1) L 10/26/24 02:38 Chloride 96 mmol/L (98-107) L 10/26/24 02:38 Carbon Dioxide 30 mmol/L (22-29) H 10/26/24 02:38 Anion Gap 11.4 (5-19) 10/26/24 02:38 BUN 18 mg/dL (6-20) 10/26/24 02:38 Creatinine 1.1 mg/dL (0.5-0.9) H 10/26/24 02:38 GFR Calculation 51.2 mL/min (90-130) L 10/26/24 02:38 Glucose 81 mg/dL (65-115) 10/26/24 02:38 Calculated Osmolality 279 mOsm/kg (285-295) L 10/26/24 02:38 Calcium 8.3 mg/dL (8.5-10.5) L 10/26/24 02:38 Total Bilirubin 0.9 mg/dL (0.15-1.2) 10/26/24 02:38 AST 29 U/L (0-32) 10/26/24 02:38 ALT 11 U/L (0-33) 10/26/24 02:38 Alkaline Phosphatase 102 U/L (35-105) 10/26/24 02:38 Ammonia 65 umol/L (11-51) H 10/26/24 02:38 Total Protein 5.5 g/dL (6.6-8.7) L 10/26/24 02:38 Albumin 2.7 g/dL (3.5-5.2) L 10/26/24 02:38 Globulin 2.8 g/dL (1.3-4.6) 10/26/24 02:38 Lipase 86 U/L (13-60) H 10/26/24 02:38 Urine Color Yellow (Yellow) 10/26/24 03:00 Urine Appearance Cloudy (CLEAR) A 10/26/24 03:00 Urine pH 6.0 (5-7) 10/26/24 03:00 Ur Specific Clark 1.019 (1.005-1.030) 10/26/24 03:00 Urine Protein Negative (Negative) 10/26/24 03:00 Urine Glucose (UA) Negative (Normal) 10/26/24 03:00 Urine Ketones Trace (Negative) 10/26/24 03:00 Urine Blood 2+ (Negative) A 10/26/24 03:00 Urine Nitrate Negative (Negative) 10/26/24 03:00 Urine Bilirubin Negative (Negative) 10/26/24 03:00 Urine Urobilinogen 1.0 mg/dL (Negative) 10/26/24 03:00 Ur Leukocyte Esterase 2+ (Negative) A 10/26/24 03:00 Urine RBC 21-50 /hpf (0-2) H 10/26/24 03:00 Urine WBC 51-100 /hpf (0-5) H 10/26/24 03:00 Ur Squamous Epith Cells 11-20 /hpf (0-5) H 10/26/24 03:00 Amorphous Sediment Not Reportable 10/26/24 03:00 Urine Bacteria None seen /hpf (NONE) 10/26/24 03:00 Hyaline Casts 0.40 /lpf 10/26/24 03:00 No radiology studies performed this visit Discharge Plan Discharge Patient Disposition: Home Clinical Impression: Cirrhosis, Abdominal ascites, UTI (urinary tract infection), Bilateral flank pain Condition: Stable Prescriptions: New cephalexin 500 mg capsule 500 mg PO TID 7 Days Qty: 21 0RF No Action hydroxyzine HCl 50 mg tablet 50 mg PO QID PRN (Reason: for sleep or panic attack) Qty: 120 2RF paroxetine HCl 40 mg tablet 40 mg PO DAILY Qty: 30 11RF Xifaxan 550 mg Tablet 550 mg PO BID nadolol 20 mg Tablet 20 mg PO BEDTIME spironolactone 25 mg tablet 25 mg PO DAILY furosemide [Lasix] 40 mg tablet 40 mg PO DAILY 30 Days Qty: 30 0RF potassium chloride [Klor-Con M20] 20 mEq tablet,ER particles/crystals 40 meq PO DAILY 30 Days Qty: 60 0RF lactulose [Constulose] 10 gram/15 mL solution 15 ml PO DAILY 30 Days Qty: 1200 0RF Discharge Orders: Discharge ED (Routine); Ordered 10/26/24 Ordered By: Leo Lundberg Referrals: Estrella Gerard FNP [Primary Care Provider, Family Practice] Discharge Diet: Usual diet Discharge Activity: Resume usual activity Patient Instructions: Opioid Safety, Pain Management, Patient Portal & Christoph Instructions Activity Restrictions/Additional Instructions: 1. Take Rx as directed. 2. Keep scheduled follow up with PCP today 3. Return for new or worsening symptoms. Print Language: Sudanese Coding Level of Care Code ED Whip Operator for Vera Freeman
[2024-10-26] MEDS: ondansetron 2 mg/ML SDV 2 mL 4 MG IVP (04:50)
[2024-10-26 04:51] VITALS: RESP 18; O2SAT 96
[2024-10-26] MEDS: morphine 4 mg/mL SDV 1 mL IVP (04:51)
[2024-10-26] MEDS: cefTRIAXone 1,000 mg SDV 1000 MG IVP (04:51)
[2024-10-26 05:17] VITALS: BP 126/68; PULSE 64; O2SAT 97
== END 2024-10-26 05:15 | disposition home or self-care (01) ==
PROVIDERS: Emergency Provider Family Medicine; PCP Nurse Practitioner Family
DX: K74.60 Unspecified cirrhosis of liver (principal); R18.8 Other ascites; N39.0 Urinary tract infection, site not specified; R10.9 Unspecified abdominal pain
CPT/HCPCS: 80053; 81001; 82140; 83690; 85025; 96374; 96375; 99284; J0696; J2270; J2405

== ENCOUNTER 2024-10-30 09:22 | Observation (INO) | payer BC, MEDICAID, SELFPAY ==
[2024-05-17 15:33] VITALS: BP 150/84; BMI 31.3
[2024-10-30] VITALS (117 sets, daily range): BP systolic 92–153; BP diastolic 39–90; PULSE 61–73; RESP 6–26; TEMP 36.6–36.7; O2SAT 89–98; BMI 33.3
--- OUTSIDE RECORDS SUMMARY | 2024-10-30 09:32 | XMS_ITS | Clinical Summary ---
Author Organization [facility] Address [address] [facility] [address] [place] [address] Phone Care Team Providers Care Whistle Punk Name Role Phone Ofe Gerardly Kingsley BENSON [...] STL ABSTRACTION Provider, Abstract 10/16/2024 Results Follow-Up [facility] Emergency Medicine [address] [facility] [address] [place] [address] Shireen Mendez, RN URINE CULTURE 10/15/2024 2:15 AM CDT - 10/15/2024 12:55 PM CDT Emergency [facility] Emergency Medicine [address] [place] [address] Kodi Roman, Decompensated HCV cirrhosis (CMS/HCC) (Primary Dx); Other ascites; Bilateral lower extremity edema; Hepatic encephalopathy (CMS/HCC); Methamphetamine abuse (CMS/HCC); Abnormal urinalysis Discharge Disposition: Acute Care Hospital 10/15/2024 Travel 09/27/2024 Orders Only [address] [place] [address] Zuleyka Regalado, MARCELINO Anemia, unspecified type (Primary Dx) 09/26/2024 External Device Data STL ABSTRACTION Provider, Abstract 09/22/2024 Results Follow-Up [address] [place] [address] Zuleyka Regalado, EXECUTIVE SOUS CHEF BEBE SCREEN W/REFLEX, TSH, COMPREHENSIVE METABOLIC PANEL, Additional followed-up results: 5 09/20/2024 3:40 PM CDT Office Visit [address] [place] [phone] Zuleyka Regalado, MARCELINO Stomatitis (Primary Dx); Dermatitis; Primary insomnia; Pruritus 09/20/2024 External Device Data STL ABSTRACTION Provider, Abstract 09/19/2024 External Device Data STL ABSTRACTION Provider, Abstract 08/14/2024 5:20 PM CDT Office Visit [address] [place] [address] Tara Mckeon FNP History of falling (Primary Dx); Chest pain on breathing; Other ascites; 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); Secondary esophageal varices with bleeding ([facility]/HCC) 08/14/[address] [place] [address] Tara Mckeon FNP Information 08/11/2024 10:41 AM CDT - 08/11/2024 11:59 PM CDT Hospital Encounter [facility] [address] [facility] [address] [place] [phone] Estrella Gerard FNP Discharge Disposition: Home or Self Care 08/11/2024 10:40 AM CDT - 08/11/2024 11:59 PM CDT Hospital Encounter [facility] [address] [facility] [address] [place] [phone] Estrella Gerard FNP Discharge Disposition: Home or Self Care 08/11/2024 Orders Only [facility] Admitting [address] [place] [phone] Estrella Gerard, MARCELINO Low back pain with sciatica, sciatica laterality unspecified, unspecified back pain laterality, unspecified chronicity (Primary Dx); Other chest pain 08/08/2024 External Device Data STL ABSTRACTION Provider, Abstract 08/08/2024 External Device Data STL ABSTRACTION Provider, Abstract 08/02/2024 Results Follow-Up [address] [phone] Breanna, Justine Laureano, MARCELINO CBC WITH DIFFERENTIAL, COMPREHENSIVE METABOLIC PANEL, AMMONIA LEVEL 08/02/2024 Results Follow-Up [address] [phone] Francy Zurita NP XR ABDOMEN 1 VW 08/01/2024 3:42 PM CDT - 08/01/2024 11:59 PM CDT Hospital Encounter [facility] [address] [place] [phone] Francy Zurita NP Discharge Disposition: Home or Self Care 08/01/2024 2:40 PM CDT Office Visit [address] [phone] Francy Zurita NP Flank pain (Primary Dx); Screening mammogram, encounter for; Vaginal bleeding; Dizziness; Loss of balance; History of fall; 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); Secondary esophageal varices with bleeding (CMS/HCC) 08/01/[address] [phone] Francy Zurita NP Patient Communication from Last [...] - 2 /hpf 10/15/2024 3:49 AM CDT [facility] RBC UA 3-5(A) 0 - 2 /hpf 10/15/2024 3:49 AM CDT [facility] BACTERIA UA 2+(A) Negative /hpf 10/15/2024 3:49 AM CDT [facility] EPITHELIAL CELLS, URINE 6-10(A) 0 - 5 /hpf 10/15/2024 3:49 AM CDT [facility] Urine URINE SPECIMEN OBTAINED BY CLEAN CATCH PROCEDURE / Unknown Collection / Unknown 10/15/2024 3:35 AM CDT 10/15/2024 3:39 AM CDT us Kodi Roman DO URINE ORDERABLES Final Result Performing Organization Address City/State/[facility] Co de Phone Number [facility] # [id number] [address] [place] [address] * (ABNORMAL) DRUG SCREEN, URINE (10/15/2024 3:35 AM CDT) CANNABINOIDS QUAL, URINE Negative Negative 10/15/2024 3:53 AM CDT [facility] PCP QUAL, URINE Negative Negative 3:53 AM CDT [facility] COCAINE QUAL URINE Negative Negative 2024 3:53 AM CDT [facility] METHAMPHETAMINE QUAL, URINE Presumptive Positive(A) Negative 10/15/2024 3:53 AM CDT [facility] OPIATE QUAL, URINE Negative Negative 2024 3:53 AM CDT [facility] AMPHETAMINE QUAL, URINE Presumptive Positive(A) Negative 10/15/2024 3:53 AM CDT [facility] BENZODIAZEPINE QUAL, URINE Negative Negative 10/15/2024 3:53 AM CDT [facility] TRICYCLICS QUAL, URINE Negative Negative 10/15/2024 3:53 AM CDT [facility] METHADONE QUAL, URINE Negative Negative 10/15/2024 3:53 AM CDT [facility] BARBITURATE QUAL, URINE Negative Negative 10/15/2024 3:53 AM CDT [facility] OXYCODONE QUAL, URINE Negative Negative 10/15/2024 3:53 AM T [facility] Urine URINE SPECIMEN OBTAINED BY CLEAN CATCH PROCEDURE / Unknown Collection / Unknown 10/15/2024 3:35 AM CDT 10/15/2024 3:39 AM CDT [facility] - 10/15/2024 3:53 AM CDT This test [...] Y Roman DO URINE ORDERABLES Final Result [facility] CLIA # [id number] [address] [place] [address] * (ABNORMAL) URINALYSIS WITH REFLEX MICROSCOPIC (10/15/2024 3:35 AM CDT) COLOR UA Yellow Pale to Dark Yellow 10/15/2024 3:49 AM T [facility] CLARITY UA Slightly Cloudy(A) Clear 10/15/2024 3:49 AM T [facility] SPECIFIC GRAVITY UA 1.015 1.003 - 1.035 10/15/2024 3:49 AM [facility] PH UA 6.0 5.0 - 8.0 10/15/2024 3:49 AM CDT [facility] LEUKOCYTE ESTERASE UA 2+(A) Negative 10/15/2024 3:49 AM CDT [facility] NITRITE UA Negative Negative 10/15/2024 3:49 AM CDT [facility] PROTEIN UA 1+(A) Negative 10/15/2024 3:49 AM CDT [facility] GLUCOSE UA Negative Negative 10/15/2024 3:49 AM CDT [facility] KETONES UA Negative Negative 10/15/2024 3:49 AM CDT [facility] UROBILINOGEN UA 1.0 <2.0 mg/dL 3:49 AM CDT [facility] BILIRUBIN UA 1+(A) Negative 10/15/2024 3:49 AM CDT [facility] BLOOD UA 2+(A) Negative 10/15/2024 3:49 AM CDT [facility] Urine URINE SPECIMEN OBTAINED BY CLEAN CATCH PROCEDURE / Unknown Collection / Unknown 10/15/2024 3:35 AM CDT 10/15/2024 3:39 AM CDT us Kodi Y Roman DO URINE ORDERABLES Final Result [facility] # [id number] [address] [place] [address] * (ABNORMAL) URINE CULTURE (10/15/2024 3:35 AM CDT) CULTURE ENTEROCOCCUS FAECALIS(A) FAISAL MCG/ML 10/17/2024 7:25 AM CDT [facility] Urine URINE SPECIMEN OBTAINED BY [...] GENERAL ORDERABL ES Edited Result - Final [facility] # [id number] [facility] [address] [place] [address] * XR ABDOMEN ACUTE SERIES 2+ VWS [...] ED Physician in the absence of a reference investigator: yes Rate: ECG rate: 68 ECG rate assessment: age appropriate Rhythm: Rhythm Origin: sinus Rhythm morphology: narrow Ectopy: Ectopy origin: PVCs [place]: QRS axis: Normal Intervals: prolonged QTC interval QRSTT: QRSTT changes: Yes Inferior (RCA) II, III, aVF: Q waves in III. Comments: Artifact noted Kodi Roman DO ECG ORDERABLES Final Result * (ABNORMAL) CBC WITH DIFFERENTIAL (10/15/2024 2:45 AM CDT) Only the most recent of3 resultswithin the time period is included. WBC 5.5 4.0 - 10.0 K/uL 10/15/2024 2:57 AM [facility] RBC 4.44 3.93 - 5.22 M/uL 10/15/2024 2:57 AM [facility] HEMOGLOBIN 12.3 11.2 - 15.7 g/dL 10/15/2024 2:57 AM [facility] HEMATOCRIT 36.8 34.1 - 44.9 % 10/15/2024 2:57 AM [facility] MCV 82.9 79.4 - 94.8 fL 10/15/2024 2:57 AM [facility] MCH 27.7 25.6 - 32.2 pg 10/15/2024 2:57 AM [facility] MCHC 33.4 32.2 - 35.5 g/dL 10/15/2024 2:57 AM [facility] RDW 14.8(H) 11.0 - 14.5 % 10/15/2024 2:57 AM [facility] RDW-STDEV 44.7 36.9 - 56.9 fL 10/15/2024 2:57 AM [facility] PLATELETS 131(L) 163 - 337 K/uL 10/15/2024 2:57 AM [facility] MPV 11.4 10.0 - 14.8 fL 10/15/2024 2:57 AM [facility] NEUTROPHILS 62 34 - 71 % 10/15/2024 2:57 AM [facility] LYMPHOCYTES 17(L) 19 - 52 % 10/15/2024 2:57 AM [facility] MONOCYTES 17(H) 5 - 13 % 10/15/2024 2:57 AM [facility] EOSINOPHILS 3 1 - 6 % 10/15/2024 2:57 AM [facility] BASOPHILS 1 0 - 1 % 10/15/2024 2:57 AM [facility] IMMATURE GRANULOCYTES 1 % 10/15/2024 2:57 AM [facility] NEUTROPHIL ABSOLUTE 3.41 1.56 - 6.13 K/uL 10/15/2024 2:57 AM [facility] LYMPHOCYTE ABSOLUTE 0.93(L) 1.20 - 3.40 K/uL 10/15/2024 2:57 AM [facility] MONOCYTE ABSOLUTE 0.93(H) 0.24 - 0.36 K/uL 10/15/2024 2:57 AM [facility] EOSINOPHIL ABSOLUTE 0.15 0.04 - 0.36 K/uL 10/15/2024 2:57 AM [facility] BASOPHILS ABSOLUTE 0.05 0.01 - 0.08 K/uL 10/15/2024 2:57 AM [facility] IMMATURE GRANULOCYTES ABSOLUTE 0.03 K/uL 10/15/2024 2:57 AM [facility] Blood Collection / Unknown 10/15/2024 2:45 AM CDT 10/15/2024 2:51 AM CDT us Kodi Y Roman DO HEMATOLOGY ORDERABLES Final Resu lt [facility] CLIA # [id number] [address] [place] [address] * (ABNORMAL) BRAIN NATRIURETIC PEPTIDE, BNP OR PROBNP (10/15/2024 2:45 AM CDT) PROBNP, N TERMINAL 1,727(H) 0 - 125 pg/mL 10/15/2024 3:10 AM CDT [facility] Comment: INTERPRETIVE COMMENT based on diagnosis: Diagnostic [...] ORDERABLES Final Resul t Performing Organization Address City/[facility]/ZIP Co de Phone Number [facility] # [id number] [address] [place] [address] * MAGNESIUM LEVEL (10/15/2024 2:45 AM CDT) MAGNESIUM 2.0 1.6 - 2.6 mg/dL 10/15/2024 3:10 AM CDT [facility] Blood Collection / Unknown 10/15/2024 2:45 AM CDT 10/15/2024 2:51 AM CDT us Kodi Y Roman DO CHEMISTRY ORDERABLES Final Resul t Performing Organization Address City/[facility]/ZIP Co de Phone Number [facility] CLIA # [id number] [address] [place] [address] * (ABNORMAL) LIPASE (10/15/2024 2:45 AM CDT) LIPASE 98(H) 13 - 60 U/L 10/15/2024 3:10 AM CDT [facility] Blood Collection / Unknown 10/15/2024 2:45 AM CDT 10/15/2024 2:51 AM CDT Kodi Y Roman DO CHEMISTRY ORDERABLES Final Resul t Performing Organization Address [facility] Co de Phone Number [facility] CLIA # [id number] [address] [place] [address] * (ABNORMAL) AMMONIA LEVEL (10/15/2024 2:45 AM CDT) Only the most recent of2 resultswithin the time period is included. AMMONIA 111.0(H) 11.0 - 51.0 umol/L 10/15/2024 3:14 AM CDT [facility] Blood, venous Collection / Unknown 10/15/2024 2:45 AM CDT 10/15/2024 2:51 AM CDT us Kodi Y Roman DO CHEMISTRY ORDERABLES Final Resul t Performing Organization Address [facility] Co de Phone Number [facility] CLIA # [id number] [address] [place] [address] * ETHANOL LEVEL (10/15/2024 2:45 AM CDT) ETHANOL <10.10 <10.10 mg/dL 10/15/2024 3:10 AM CDT [facility] ETHANOL % <0.01 %w/v 10/15/2024 3:10 AM CDT [facility] Blood Collection / Unknown 10/15/2024 2:45 AM CDT 10/15/2024 2:51 AM CDT us Kodiannie Huertaan DO CHEMISTRY ORDERABLES Final Resul t [facility] # [id number] [address] [place] [address] * (ABNORMAL) COMPREHENSIVE METABOLIC PANEL (10/15/2024 2:45 AM CDT) Only the most recent of3 resultswithin the time period is included. SODIUM 134(L) 136 - 145 mmol/L 10/15/2024 3:10 AM T [facility] POTASSIUM 4.1 3.5 - 5.1 mmol/L 10/15/2024 3:10 AM [facility] CHLORIDE 101 98 - 107 mmol/L 10/15/2024 3:10 AM [facility] CO2 23 22 - 29 mmol/L 10/15/2024 3:10 AM [facility] CALCIUM 8.8 8.6 - 10.0 mg/dL 10/15/2024 3:10 AM [facility] BUN 20 6 - 20 mg/dL 10/15/2024 3:10 AM [facility] CREATININE 1.51(H) 0.51 - 0.95 mg/dL 10/15/2024 3:10 AM [facility] GLUCOSE 97 74 - 99 mg/dL 10/15/2024 3:10 AM [facility] TOTAL PROTEIN 6.2(L) 6.6 - 8.7 g/dL 10/15/2024 3:10 AM [facility] ALBUMIN 2.8(L) 3.5 - 5.2 g/dL 10/15/2024 3:10 AM [facility] BILIRUBIN TOTAL 1.6(H) 0.0 - 1.2 mg/dL 10/15/2024 3:10 AM [facility] ALKALINE PHOSPHATASE 105(H) 35 - 104 U/L 10/15/2024 3:10 AM [facility] AST 61(H) 0 - 35 U/L 10/15/2024 3:10 AM CDT [facility] ALT 27 0 - 35 U/L 10/15/2024 3:10 AM CDT [facility] GFR 40(L) >=60 mL/min/1.7 3 sq meter 10/15/2024 3:10 AM CDT [facility] Comment:eGFR calculated with 2020 CKD-EPI equation. Vegetarian diet, extremely high or low muscle mass, and may affect results. Cystatin C with Glomerular Filtration Rate is a suitable alternative for these patients. ANION GAP 10 5 - 20 mmol/L 10/15/2024 3:10 AM CDT [facility] Blood Collection / Unknown 10/15/2024 2:45 AM CDT 10/15/2024 2:51 AM CDT us Kodi Y Roman DO CHEMISTRY ORDERABLES Final Resul t [facility] CLIA # [id number] [address] [place] [address] * ALLERGY PANEL, FOOD AND TREE NUTS [...] analytical performance characteristics have been determined by [facility]. It has not been cleared or approved by the U.S. Food and Drug Administration. This assay has been validated pursuant to the CLIA regulations and is used for clinical purposes. Test Performed at: [facility] [address] [facility] [place] [address] Yuriy Bridges MD Blood 09/20/2024 4:24 PM CDT 09/22/2024 5:11 AM CDT Zuleyka Regalado [facility] CHEMISTRY ORDERABLES Fin al Result [facility] [phone] [place] [address] * ALPHA-GAL PANEL (09/20/2024 4:24 PM CDT) ALLERGEN BEEF <0.10 kU/L [employer]/N [facility], ALLERGEN BEEF (F27) CLASS 0 [facility]/N [facility], RIBERA (F88) IGE <0.10 kU/L [facility]/N [facility], ALLERGEN RIBERA (F88) CLASS 0 [facility], ALLERGEN PORK <0.10 kU/L [facility]/N [facility], ALLERGEN PORK (F26) CLASS 0 [facility]/N [facility], GALACTOSE - ALPHA -1, 3 - GALACTOSE, IGE <0.10 <0.10 kU/L [facility]/N [facility], Comment: Results above 0.1 kU/L indicate an allergen-specific IgE sensitization to rlhbdhqht-a-3,3-galactose, and such patients are at risk for [...] method. Additional information can be found at http://www.[employer].Ku Test Performed at: [facility], [address] [place] [address] Lisa Jeter MD,PhD,[place] Blood 09/20/2024 4:24 PM CDT 09/22/2024 5:11 AM CDT Zuleyka Regalado EXECUTIVE SOUS CHEF CHEMISTRY ORDERABLES Fin al Result [facility] [phone] [facility]ill[facility], [address] [place] [address] * (ABNORMAL) CELIAC DISEASE ANTIBODIES (09/20/2024 4:24 PM CDT) Pathologist [facility] CELIAC SEROLOGY INTER [facility] Comment: No serological evidence for celiac disease is present. tTg may normalize in individuals with celiac disease who maintain a gluten free diet. If high suspicion of celiac disease, consider HLA DQ2 and DQ8 testing to rule out celiac disease. TRANSGLUTAMINASE IGA AB <1.0 U/mL [facility]ure[facility] Comment: Value Interpretation ----- <15.0 Antibody not detected > or = 15.0 Antibody detected IGA 400(H) 47 - 310 mg/dL [facility] [facility] Comment: Test Performed at: [facility] [address] [place] [address] Alberto Humphrey Blood 09/20/2024 4:24 PM CDT 09/22/2024 5:11 AM CDT Zuleyka Regalado [facility] CHEMISTRY ORDERABLES Fin al Result Performing Organization Address [facility] Co de Phone Number [facility] [phone] [facility] [address] [facility] [place] [address] * BEBE SCREEN W/REFLEX (09/20/2024 4:24 PM CDT) BEBE SCREEN NEGATIVE NEGATIVE [facility] [place] Comment: BEBE IFA is a first line [...] AC-0: Negative International Consensus on BEBE Patterns (https://doi.org/10.1515/pcjw-9142-4787) For additional information, please refer to http://education.[employer]/faq/AVB325 (This link is being provided for informational/ educational purposes only.) Test Performed at: [facility] [address] [place] [address] Yuriy Bridges MD Blood 09/20/2024 4:24 PM CDT 09/22/2024 5:11 AM CDT Zuleyka Varnerriott [facility] CHEMISTRY ORDERABLES Fin al Result Performing Organization Address City/[facility]/ZIP Co de Phone Number [facility] [phone] [facility]School[facility] Hospital[facility] [address] [place] [address] * TSH (09/20/2024 4:24 PM CDT) TSH 1.43 0.40 - 4.50 mIU/L [facility] Comment: Test Performed at: [facility] [address] [place] [address] Yuriy Bridges MD Blood 09/20/2024 4:24 PM CDT 09/22/2024 5:11 AM CDT Zuleyka Jessica Regalado EXECUTIVE SOUS CHEF CHEMISTRY ORDERABLES Fin al Result Performing Organization Address City/[facility] Co de Phone Number [facility] [phone] [facility] [address] * VITAMIN B12 LEVEL (09/20/2024 4:24 PM CDT) VITAMIN B12 461 200 - 1100 pg/mL [facility] Comment: Test Performed at: [employer] [address] [place] [address] Yuriy Bridges MD Blood 09/20/2024 4:24 PM CDT 09/22/2024 5:11 AM CDT Zuleyka Jessica Regalado EXECUTIVE SOUS CHEF CHEMISTRY ORDERABLES Fin al Result Performing Organization Address [facility] Co de Phone Number [facility] [phone] [facility] [address] [place] [address] * XR LUMBAR SPINE 2 OR 3 [...] with preserved intervertebral disc heights. Remainder unremarkable. [facility] DIAGNOSTIC IMAGING ORDERABL ES Final Result * [...] identified. The osseous structures appear grossly intact. [facility] [facility] DIAGNOSTIC IMAGING ORDERABL ES Final Result * [...] UA POC Yellow Pale to Dark Yellow [facility] CLARITY UA POC Clear Clear, Other [facility] GLUCOSE UA POC Negative Negative, Normal [facility] BILIRUBIN UA POC Negative Negative [facility] KETONES UA POC Negative Negative [facility] SPECIFIC GRAVITY UA POC 1.015 1.000 - 1.030 [facility] BLOOD UA POC 3+(A) Negative [facility] UA POC 6.0 5.0 - 8.0 [facility] PROTEIN UA POC Negative Negative [facility] UROBILINOGEN UA POC >8.0(A) <2.0 mg/dL [facility] NITRITE UA POC Negative Negative [facility] LEUKOCYTE ESTERASE UA POC 1+(A) Negative [facility] KIT LOT NUMBER POC [phone] [facility] KIT EXP DATE POC [id number] [facility] Urine 08/01/2024 2:50 PM CDT us Francy Zurita [employer]ER[employer]CE[employer] CLAMMER POINT OF CARE TESTING Final Re sult [facility] CLIA# [id number] [address] [place] [address] * COLONOSCOPY REPORT (09/29/2023 2:57 PM CDT) Narrative Procedure Note Steven Francis MD - 09/29/2023 2:57 PM CDT [facility] GI Patient Name: Sandy Enrandez Procedure Date: 09/29/2023 Date of : 1965 [...] 2:39:39 PM Scope Out: 2:52:28 PM [address] [place], [place] Steven Francis MD GI PROCEDURE ORDERABLES F inal Result from Last 3 Months or Most Recently Relevant to Health Maintenance Insurance [facility] MEDICAID Advance Directives For more information, please contact: [phone] * Full Code (Latest Code Status on File) Date Activated Date Inactivated Comments 09/29/2023 1:00 PM 09/29/2023 5:24 PM Care Teams Whistle Punk Relationship Specialty Start Date End Date Estrella Gerard FNP [address] [place] [phone] PCP - General Nurse Practitioner Family 05/18/21
--- OUTSIDE RECORDS SUMMARY | 2024-10-30 09:32 | XMS_ITS | Encounter Summary ---
Author Organization [facility] Address [address] [place] [address] Care Team Providers Care Organic Chemistry Professor Name Role Phone Moustapha Estrella Kingsley [facility] Primary Care Provider [phone] Reason for Visit * Reason Onset Date Comments Results 09/22/2024 Patient Communication Encounter Details Date Type Department Care Team (Latest Contact Info) Description 09/22/2024 Results Follow-Up [facility] Medicine [place] [address] [address] Zuleyka Regalado, [facility] [address] [address] BEBE SCREEN W/REFLEX, TSH, COMPREHENSIVE [...] hematology but is agreeable to going to [facility] for referral. She states that she did [...] 10:07 AM CDT Copied from [facility] #[id number]. Topic: CPA Information Request >> Sep 26, 2024 10:04 AM Yves Beauchamp wrote: Caller is returning phone call from clinic. Caller Name: Sandy Ernandez Patient/Caregiver Callback Number: [phone] (mobile) Clinic Left Note In Chart Is there a note from the clinic requesting the caller be transferred when they call back? No Are the credentials of the caregiver who called the patient forest law and policy professor? Yes Call Notes: Communicated information that is [...] clinic. Martha REESE * Telephone Encounter - Marhta Martinez RN - 09/25/2024 10:34 AM CDT [...] on filedocumented in this encounter Care Teams Organic Chemistry Professor Relationship Specialty Start Date End Date Estrella Gerard FNP [address] [place] [address] PCP - General Nurse Practitioner Family 05/18/21 documented as of this encounter
--- OUTSIDE RECORDS SUMMARY | 2024-10-30 09:32 | XMS_ITS | Clinical Summary ---
Author Organization [facility] Address [address] [facility] [address] [place] [address] Phone Care Team Providers Care Practice Nurse Name Role Phone Unavailable Primary Care Provider [...] (2 - Td or Tdap) 05/18/[address] [place] [address] [address] [place] [address] NETWORK
--- OUTSIDE RECORDS SUMMARY | 2024-10-30 09:32 | XMS_ITS | Encounter Summary ---
Author Organization [facility] Address [address] [place] [address] Care Team Providers Care Bicycle Racer Name Role Phone Estrella Gerard Primary Care Provider [phone] Encounter Details Date Type Department Care Team ([facility] st Contact Info) Description 10/16/2024 Results Follow-Up [facility] Emergency Medicine [address] [place] [address] Shireen Mendez, RN URINE CULTURE [...] on filedocumented in this encounter Care Teams Bicycle Racer Relationship Specialty Start Date End Date Estrella Gerard FNP [address] [place] [id number] PCP - General Nurse Practitioner Family 05/18/21 documented as of this encounter
--- NOTE | 2024-10-30 09:35 | W.ED.ABDPA2 ---
HPI - Abdominal Pain General: Chief Complaint: Abdominal Pain Stated Complaint: abd pain Time Seen by Provider: 10/30/24 09:27 History of Present Illness: 59-year-old female with history of cirrhosis and hepatitis C, who presents to the ED with complaint of right worse than left abdominal pain for the past week. Patient was seen in the ED on 10/26/2024 and was treated for a UTI with Keflex. Patient states that her abdominal pain feels worse and different from my usual abdominal pain . She denies any nausea, vomiting, diarrhea, hematochezia, chest pain, or shortness of breath. She reports she normally has a paracentesis performed every Wednesday. No other complaints at this time. Associated Symptoms: Denies chills, diarrhea, dysuria, fever(s), hematochezia, nausea and vomiting Related Data Home Medications ?Medication ?Instructions ?Recorded ?Confirmed rifaximin 550 mg tablet (Xifaxan) 550 mg PO BID 12/10/23 10/30/24 Previous Rx's ?Medication ?Instructions ?Recorded hydroxyzine HCl 50 mg tablet 50 mg PO QID PRN for sleep or 10/10/24 panic attack #120 tabs paroxetine HCl 40 mg tablet 40 mg PO DAILY #30 tabs 10/10/24 furosemide 40 mg tablet (Lasix) 40 mg PO DAILY 30 days #30 tabs 10/20/24 potassium chloride 20 mEq 40 meq (2 x 20 mEq) PO DAILY 30 10/20/24 tablet,extended days #60 tabs release(part/cryst) (Klor-Con M) cephalexin 500 mg capsule 500 mg PO TID 7 days #21 caps 10/26/24 Allergies Allergy/AdvReac Type Severity Reaction Status Date / Time tramadol Allergy ADR-Nausea Verified 10/30/24 09:31 NSAIDS (Non-Steroidal AdvReac Unknown Verified 10/30/24 09:31 Anti-Inflamma Review of Systems Const: Denies: fever(s) or chills Card: Denies: chest pain Resp: Denies: dyspnea GI: Reports: abdominal pain; Denies: nausea, vomiting, diarrhea or hematochezia : Denies: difficulty voiding or dysuria Neuro: Denies: headache(s) or weakness in extremities PFS ED PFSH: Medical History (Updated 10/30/24 @ 13:51 by Sergei Nieto DO) History of nephrolithiasis Methamphetamine use disorder, severe, in sustained remission Celiac disease Cirrhosis Enterococcus UTI Thrombocytopenia S/P abdominal paracentesis Hepatitis C Family History Mother Hypertension Family/Other Hypertension Denies family history of Diabetes CAD (coronary artery disease) Cancer Social History Smoking and tobacco/nicotine status: never used tobacco/nicotine Second hand smoke exposure: Yes Alcohol intake: former Former alcohol use details: 25 years ago Substance/Drug Use: former Former substance use details: 5-6 years ago Adopted: No Caregiver/support person: No Lives independently: Yes Household members: friend(s) Housing: House Marital status: Marital status details: while in longterm, never met him outside of longterm Number of children: 2 Number of grandchildren: 5 Highest education level completed: Some College, No Degree service: No Current occupational status: disabled Current occupation: working on getting disability Current occupational exposures/hazards: No Pets and animals: Yes Pets & animals: dog(s) Leisure activites: other Leisure activities details: watch movies and play with grand kids Sexually active: No Do you think of yourself as: Straight/Heterosexual Current gender identity: Female Lauren/Oriental Orthodox: Jainism Special lauren needs: No Agree to transfusion: Yes Female Reproductive History: Para: 2 Physical Exam Const: COMMON NORMALS: no acute distress and patient oriented x3 HENMT: COMMON NORMALS: normocephalic HEAD & SCALP: normocephalic Resp: COMMON NORMALS: normal respiratory effort Cardio: COMMON NORMALS: regular rate and regular rhythm RATE: regular rate RHYTHM: regular rhythm GI: INSPECTION: Yes abdominal distension and Yes Fluid wave present PALPATION: Yes Tenderness to palpation present (GI) Details: RUQ and Yes Ascites present PERCUSSION: Fluid wave present Neuro: COMMON NORMALS: patient oriented x3 Skin: GENERAL SKIN EXAM: jaundice Course Vital Signs: Vital signs: Vital Signs Temperature 98.1 F 10/30/24 09:27 Pulse Rate 65 10/30/24 13:10 Respiratory Rate 21 H 10/30/24 13:10 Blood Pressure 113/67 10/30/24 13:00 Pulse Oximetry 91 10/30/24 13:10 Oxygen Delivery Me thod Room Air 07/28/25 11:25 MDM - Abdominal Pain Medical Decision Making Discussed with hospitalist will admit for possible SBP pyelonephritis. Patient is getting CT abdomen pelvis at this time. She had 5750 mL of peritoneal fluid drained on paracentesis. This has been sulfur sent for fluid analysis and for culture. We have also gotten blood cultures and her lactate was normal. She still having significant right sided flank pain. Orders written for observation Medical Records I reviewed the patient's medical records. Lab Data I reviewed the patient's lab results. 10/30/24 09:45 10/30/24 09:45 Labs/Radiology: Laboratory Results WBC 4.42 10^3/uL (3.29-11.43) 10/30/24 09:45 RBC 4.12 10^6/uL (3.85-5.65) 10/30/24 09:45 Hgb 11.50 g/dL (11.27-16.99) 10/30/24 09:45 Hct 36.0 % (36-47) 10/30/24 09:45 MCV 87.4 fl (85-98) 10/30/24 09:45 MCH 27.9 pg (27-33) 10/30/24 09:45 MCHC 31.9 g/dL (30-55) 10/30/24 09:45 RDW 15.6 % (12.1-15.1) H 10/30/24 09:45 Plt Count 158 10^3/cmm (157-399) 10/30/24 09:45 MPV 12.0 fL (7.4-10.4) H 10/30/24 09:45 Neut % (Auto) 58.8 % 10/30/24 09:45 Lymph % (Auto) 16.7 % 10/30/24 09:45 Lamar % (Auto) 14.3 % 10/30/24 09:45 Eos % (Auto) 8.1 % 10/30/24 09:45 Baso % (Auto) 1.6 % 10/30/24 09:45 Neut # (Auto) 2.60 10^3/uL (1.8-7.7) 10/30/24 09:45 Lymph # (Auto) 0.7 10^3/uL (0.8-4.8) L 10/30/24 09:45 Lamar # (Auto) 0.6 10^3/uL (0.2-0.9) 10/30/24 09:45 Eos # (Auto) 0.4 10^3/uL (0.0-0.8) 10/30/24 09:45 Baso # (Auto) 0.1 10^3/uL (0.0-0.1) 10/30/24 09:45 Nucleated RBC % (auto) 0 % 10/30/24 09:45 Nucleated RBCs # 0.0 /100WBC 10/30/24 09:45 ESR 35 mm/hr (0-15) H 10/30/24 09:45 PT 14.80 SECONDS (12.1-14.9) 10/30/24 09:45 INR 1.08 (0.8-1.2) 10/30/24 09:45 APTT 28.8 SECONDS (23.9-36.7) 10/30/24 09:45 Sodium 136 mmol/L (136-145) 10/30/24 09:45 Potassium 4.7 mmol/L (3.5-5.1) 10/30/24 09:45 Chloride 98 mmol/L (98-107) 10/30/24 09:45 Carbon Dioxide 29 mmol/L (22-29) 10/30/24 09:45 Anion Gap 13.7 (5-19) 10/30/24 09:45 BUN 16 mg/dL (6-20) 10/30/24 09:45 Creatinine 1.0 mg/dL (0.5-0.9) H 10/30/24 09:45 GFR Calculation 57.1 mL/min (90-130) L 10/30/24 09:45 Glucose 83 mg/dL (65-115) 10/30/24 09:45 Calculated Osmolality 282 mOsm/kg (285-295) L 10/30/24 09:45 Lactic Acid 1.0 mmol/L (0.5-2.2) 10/30/24 13:05 Calcium 8.6 mg/dL (8.5-10.5) 10/30/24 09:45 Total Bilirubin 1.0 mg/dL (0.15-1.2) 10/30/24 09:45 AST 35 U/L (0-32) H 10/30/24 09:45 ALT 14 U/L (0-33) 10/30/24 09:45 Alkaline Phosphatase 171 U/L (35-105) H 10/30/24 09:45 Ammonia 76 umol/L (11-51) H 10/30/24 09:45 Total Protein 6.2 g/dL (6.6-8.7) L 10/30/24 09:45 Albumin 3.2 g/dL (3.5-5.2) L 10/30/24 09:45 Globulin 3.0 g/dL (1.3-4.6) 10/30/24 09:45 Lipase 63 U/L (13-60) H 10/30/24 09:45 Urine Color Yellow (Yellow) 10/30/24 09:50 Urine Appearance Clear (CLEAR) 10/30/24 09:50 Urine pH 6.0 (5-7) 10/30/24 09:50 Ur Specific [place] 1.015 (1.005-1.030) 10/30/24 09:50 Urine Protein Negative (Negative) 10/30/24 09:50 Urine Glucose (UA) Negative (Normal) 10/30/24 09:50 Urine Ketones Trace (Negative) 10/30/24 09:50 Urine Blood Non-haemolysed trace (Negative) 10/30/24 09:50 Urine Nitrate Negative (Negative) 10/30/24 09:50 Urine Bilirubin Negative (Negative) 10/30/24 09:50 Urine Urobilinogen 1.0 mg/dL (Negative) 10/30/24 09:50 Ur Leukocyte Esterase 2+ (Negative) A 10/30/24 09:50 Urine RBC 6-10 /hpf (0-2) 10/30/24 09:50 Urine WBC 21-50 /hpf (0-5) H 10/30/24 09:50 Ur Squamous Epith Cells 0-5 /hpf (0-5) 10/30/24 09:50 Amorphous Sediment Not Reportable 10/30/24 09:50 Urine Bacteria None seen /hpf (NONE) 10/30/24 09:50 Hyaline Casts 0.81 /lpf 10/30/24 09:50 All radiology interpretation(s) finalized by discharge Discharge Plan Discharge Patient Disposition: Placed in Observation Clinical Impression: SBP (spontaneous bacterial peritonitis), Hepatitis C, Cirrhosis, UTI (urinary tract infection), Pyelonephritis Coding Level of Care Code ED Java Security Architect for Vera Freeman
[2024-10-30 09:55] LABS: Hematocrit 36.0 % (36-47); Hemoglobin 11.50 g/dL (11.27-16.99); Mean Corpuscular HGB Conc 31.9 g/dL (30-55); Mean Corpuscular Hemoglobin 27.9 pg (27-33); Mean Corpuscular Volume 87.4 fl (85-98); Nucleated Red Blood Cells % 0 %; Platelet Count 158 10^3/cmm (157-399); Red Blood Count 4.12 10^6/uL (3.85-5.65); White Blood Count 4.42 10^3/uL (3.29-11.43)
[2024-10-30 10:03] LABS: Glucose Urine UA Negative (Normal); Nitrate Urine Negative (Negative); Specific Gravity, Urine 1.015 (1.005-1.030)
[2024-10-30 10:07] LABS: INR 1.08 (0.8-1.2); Partial Thromboplastin Time 28.8 SECONDS (23.9-36.7); Prothrombin Time 14.80 SECONDS (12.1-14.9)
--- NOTE | 2024-10-30 10:07 | US_ITS ---
WS: [id number] ULTRASOUND-GUIDED THERAPEUTIC AND DIAGNOSTIC PARACENTESIS Procedure, risks, and complications have been explained to the patient. Consent is obtained. Utilizing aseptic technique and 1% buffered lidocaine, a small dermatome was made through which a 5 [place] Yueh catheter was inserted. Approximately 5750 ml of clear peritoneal fluid was obtained without difficulty. No complications encountered. US/US paracentesis abd w [id number] IMPRESSION: Uncomplicated paracentesis yielding 5750 ml of peritoneal fluid.
[2024-10-30 10:08] LABS: Add Urine Microscopic? YES
[2024-10-30 10:13] LABS: Alanine Aminotransferase 14 U/L (0-33); Albumin Level 3.2 g/dL (3.5-5.2); Alkaline Phosphatase 171 U/L (35-105); Aspartate Amino Transferase 35 U/L (0-32); Blood Urea Nitrogen 16 mg/dL (6-20); Calcium 8.6 mg/dL (8.5-10.5); Carbon Dioxide 29 mmol/L (22-29); Chloride 98 mmol/L (98-107); Creatinine Clr Calc Pharmacy 69.0677; Globulin 3.0 g/dL (1.3-4.6); Glucose 83 mg/dL (65-115); Lipase 63 U/L (13-60); Osmolality Calculated 282 mOsm/kg (285-295); Sodium 136 mmol/L (136-145); Total Protein 6.2 g/dL (6.6-8.7)
[2024-10-30 10:14] LABS: Ammonia 76 umol/L (11-51)
[2024-10-30 10:16] LABS: Anion Gap 13.7 (5-19); Potassium 4.7 mmol/L (3.5-5.1)
[2024-10-30] MEDS: morphine 4 mg/mL SDV 1 mL IVP ×2 (12:14→13:56)
[2024-10-30 13:29] LABS: Lactic Sepsis W/Reflex 1.0 mmol/L (0.5-2.2)
--- NOTE | 2024-10-30 13:33 | CT_ITS ---
WS: [id number] CT ABDOMEN PELVIS TECHNIQUE: Noncontrast CT of the abdomen and pelvis with coronal and sagittal reformatted images. CLINICAL INFORMATION: Abdominal pain COMPARISON: CT 04/10/2024 DLP: 870.[address] scans at [facility] use at least one of these dose optimization techniques: automated exposure control; mA and/or kV adjustment per patient size (includes targeted exams where dose is matched to clinical indication); or iterative reconstruction. FINDINGS: Cirrhotic liver with splenomegaly and evidence of portal venous hypertension. Small esophageal hiatal hernia. Portosystemic collaterals and upper abdominal varices. Small amount of perihepatic and perisplenic ascites. Mild amount of residual ascites in the pelvis. No drainable ascites. Diffuse body wall anasarca. Small RIGHT pleural effusion with compressive atelectasis RIGHT lower lobe. This is new since 04/10/2024. Trace fluid LEFT lower lobe. Adrenal glands are normal. Mild renal cortical scarring. No hydronephrosis in the RIGHT kidney. Obstructing LEFT renal parenchymal calculus at the LEFT UPJ measuring approximately 3.8 mm. Mild LEFT pelvicaliectasis. Ureter distal to the calculus is decompressed. Sigmoid diverticulosis. No evidence of acute diverticulitis. Tiny fat-containing umbilical hernia. Tiny amount of free air in the anterior abdomen presumably due to recent paracentesis. Normal noncontrast pancreas. Normal caliber abdominal aorta. CT/CT abdomen pelvis wo con [id number] IMPRESSION: 1. 3.8 mm obstructing LEFT UPJ calculus with mild LEFT pelvicaliectasis. This is new compared to 04/10/2024. 2. Small RIGHT pleural effusion with compressive atelectasis RIGHT lower lobe is also new from previous. 3. Small volume perihepatic and perisplenic ascites with a small amount of res idual pelvic ascites. Paracentesis performed just prior to CT. Small amount of incidental free air from paracentesis. 4. Diverticulosis. 5. Similar-appearing advanced liver cirrhosis with splenomegaly. Portosystemic collaterals with upper abdominal varices. Notified Sergei Nieto DO at 10/30/2024 2:13 PM.
[2024-10-30 13:49] LABS: Cyto Order Verification No Order
--- NOTE | 2024-10-30 14:16 | PC.PHAR ---
Patient states she takes a memory pill (Xifaxan 550).Phamracy states last fill was06/03/24 90days
[2024-10-30] MEDS: cefTRIAXone 1,000 mg SDV 1000 MG IVP (14:19)
[2024-10-30 14:23] LABS: Apprearance, Body Fluid CLOUDY; Color, Body Fluid YELLOW
[2024-10-30 14:33] LABS: Body Fluid Polynuclear #Cells 0.009; Monocytes # Body Fluid 0.070; Mononuclear WBC Body Fluid % 88.600 %; Polynuclear WBC Body Fluid % 11.400 %
[2024-10-30 14:35] LABS: Fluid Laterality PERITONEAL FLUID; PATH Referral YES
--- NOTE | 2024-10-30 16:21 | P.HP_ITS ---
Providers/Chief Complaint 2 Primary Care Provider: MARCELINO Rodrigez Chief Complaint: abd pain History of Present Illness Sandy Ernandez is a 59 year old female past medical history of liver cirrhosis recurrent ascites history hepatitis C, history of hepatic encephalopathy, methamphetamine use presented to the ER today due to complaint of flank pain and abdominal pain. Paracentesis performed in the ER 5 L fluid was removed sent for cytology. CT abdomen pelvis was performed which showed 3.8 mm kidney stone with mild left pelvic caliectasis. This is new compared to 04/10/1909/22/2024. Patient was recently discharged from the hospital on 10/1819. At that visit she was treated for diastolic CHF exacerbation. She was discharged on home spironolactone and 40 of Lasix daily. She was also placed on a fluid restriction. She was recently diagnosed with a urinary tract infection and discharged home on oral antibiotics. She has taken cephalexin for the last 4 days however continues to complain of flank pain. Case was discussed with Dr. Howell urologist at [facility] by ER physician. No acute intervention by urology was recommended at this point. She was recommended to continue on oral antibiotics and follow-up with urology as an outpatient. Secondary to failing outpatient antibiotic treatment with suspicion of SBP patient was recommended for admission here. Ascites fluid cytology is not indicating SBP at this time. Discussed with your doctor over the phone Will admit patient here for observation for pain control and UTI. Patient states that she has bilateral flank pain and gets weekly paracentesis done. At the previous visits she had 8 and 9 L removed however on average it was around 5 L. He says she feels slightly better after fluid removal today however is not back to her baseline yet. Abdomen is not tender to palpation. Medications/Allergies Home Medications ?Medication ?Instructions ?Recorded ?Confirmed ?Last Taken ?Type rifaximin 550 mg tablet (Xifaxan) 550 mg PO BID 10/30/24 10/14/24 History hydroxyzine HCl 50 mg tablet 50 mg PO QID PRN for slee p or 10/10/24 10/30/24 10/29/24 Rx panic attack #120 tabs paroxetine HCl 40 mg tablet 40 mg PO DAILY #30 tabs 10/30/24 10/29/24 Rx furosemide 40 mg tablet (Lasix) 40 mg PO DAILY 30 days #30 tabs 10/20/24 10/30/24 10/29/24 Rx potassium chloride 20 mEq 40 meq (2 x 20 mEq) PO DAILY 30 10/20/24 10/30/24 10/29/24 Rx tablet,extended days #60 tabs release(part/cryst) (Klor-Con M) cephalexin 500 mg capsule 500 mg PO TID 7 days #21 cap s 10/26/24 10/30/24 Unknown Rx Allergies Allergy/AdvReac Type Severity Reaction Status Date / Time tramadol Allergy ADR-Nausea Verified 10/30/24 09:31 NSAIDS (Non-Steroidal AdvReac Unknown Verified 10/30/24 09:31 Anti-Inflamma PFSH Acute 2 PFSH: Medical History (Updated 10/30/24 @ 13:51 by Sergei Nieto DO) History of nephrolithiasis Methamphetamine use disorder, severe, in sustained remission Celiac disease Cirrhosis Enterococcus UTI Thrombocytopenia S/P abdominal paracentesis Hepatitis C Family History Mother Hypertension Family/Other Hypertension Denies family history of Diabetes CAD (coronary artery disease) Cancer Social History Smoking and tobacco/nicotine status: never used tobacco/nicotine Second hand smoke exposure: Yes Alcohol intake: former Former alcohol use details: 25 years ago Substance/Drug Use: former Former substance use details: 5-6 years ago Adopted: No Caregiver/support person: No Lives independently: Yes Household members: friend(s) Housing: House Marital status: Marital status details: [place] [facility], never met him outside of [facility] Number of children: 2 Number of grandchildren: 5 Highest education level completed: Some College, No Degree service: No Current occupational status: disabled Current occupation: working on getting disability Current occupational exposures/hazards: No Pets and animals: Yes Pets & animals: dog(s) Leisure activites: other Leisure activities details: watch movies and play with grand kids Sexually active: No Do you think of yourself as: Straight/Heterosexual Current gender identity: Female Lauren/Confucianist: Protestant Special lauren needs: No Agree to transfusion: Yes Female Reproductive History: Para: 2 Vitals/I&O/Wt Last Vital Signs Temp 98.1 F 10/30/24 09:27 Pulse 62 10/30/24 15:35 Resp 12 10/30/24 15:35 BP 104/60 10/30/24 15:35 Pulse Ox 93 10/30/24 15:35 O2 Del Method Room Air 10/30/24 11:25 10/30/24 10/30/24 10/30/24 06:59 14:59 22:59 Output Total 5750 / 5750 Balance -5750 / -5750 Weight last 48 hrs Weight 90.718 kg Physical Exam 2 Narrative: General: Alert oriented x3, patient seen sitting up in bed complains of flank pain. HEENT: Normocephalic, atraumatic, EOMI, breathing room air Cardio: Regular rate rhythm, normal S1-S2, Respiratory: Clear to auscultation bilaterally no wheezes no rhonchi GI: Abdomen soft, nontender, nondistended, bowel sounds + Extremities: No edema bilateral lower extremities Data 10/30/24 09:45 10/30/24 09:45 Micro: Microbiology 10/30/24 14:10 Blood Culture - Preliminary Blood SPECIMEN COLLECTED 10/30/24 13:05 Blood Culture - Preliminary Blood SPECIMEN COLLECTED 10/30/24 11:00 Gram Stain - Final Ascites Fluid A&P Assessment and plan 1. Noncompliance: 2. High risk medication use: 3. Anxiety: 4. Post-traumatic stress disorder, chronic: 5. Generalized anxiety disorder: 6. Major depressive disorder, recurrent, moderate: 7. Cirrhosis: 8. S/P abdominal paracentesis: 9. History of nephrolithiasis: 10. UTI (urinary tract infection): 11. Hepatitis C: Plan: #UTI #Abdominal ascites #Kidney stone 3.8 mm #Bilateral flank pain secondary to above #History of methamphetamine abuse #Generalized anxiety disorder #History of hepatitis C #History of liver cirrhosis ? Per urology no acute intervention needed. This was discussed with Dr. Howell urology at [facility] by ER physician ? Patient on cephalexin since October 26. Will switch to IV Zosyn at this time. Previous urine culture showed Enterococcus faecalis ? Check urine culture, blood cultures ? Initial suspicion for SBP by ER physician. Ascites fluid analysis reviewed. I do not believe this is SBP. ?Will continue on Zosyn. Await urine culture. ? Patient had 5 L removed via paracentesis today. ? Order 1 unit of albumin. ? Will need urology follow-up as an outpatient ? If patient does deteriorate or develops sepsis versus septic shock may require urgent urological intervention and will need to be transferred to higher level of care. ? Continue Lasix, potassium, rifaximin, paroxetine ? Hydrocodone 5 every 8 hours as needed for pain ? Will order paracentesis for a.m. DVT prophylaxis: SCDs Full code PDMP PDMP Reviewed: Not Reviewed Attestations 2 Medical Necessity Statement*: Observation admission for UTI and pain control. Will need results of urine culture prior to discharge. Diagnoses Noncompliance Z91.199 High risk medication use Z79.899 Anxiety F41.9 Post-traumatic stress disorder, chronic F43.12 Generalized anxiety disorder F41.1 Major depressive disorder, recurrent, moderate F33.1 Cirrhosis K74.60 S/P abdominal paracentesis Z98.890 History of nephrolithiasis Z87.442 UTI (urinary tract infection) N39.0 Hepatitis C B19.20
[2024-10-30] MEDS: albumin 25 G/100 ML BAG 60 G IV (17:41)
[2024-10-30] MEDS: heparin 5,000 unit/mL INJ 1 mL 5000 UNIT SUBCUT (17:46)
[2024-10-30 17:54] LABS: Procalcitonin 0.06 ng/mL (0-0.5)
[2024-10-30] MEDS: piperacillin-tazobactam 3.375 GM in sodium chloride 0.9% (plus) 50 ML IV (19:19)
[2024-10-31] VITALS (9 sets, daily range): BP systolic 104–142; BP diastolic 61–70; PULSE 66–73; RESP 16–18; TEMP 36.7–36.9; O2SAT 95–98
[2024-10-31] MEDS: morphine 4 mg/mL SDV 1 mL IVP (00:20)
[2024-10-31] MEDS: piperacillin-tazobactam 3.375 GM in sodium chloride 0.9% (plus) 50 ML IV ×3 (00:20→16:33)
[2024-10-31 05:27] LABS: Hematocrit 35.1 % (36-47); Hemoglobin 11.00 g/dL (11.27-16.99); Mean Corpuscular HGB Conc 31.3 g/dL (30-55); Mean Corpuscular Hemoglobin 28.2 pg (27-33); Mean Corpuscular Volume 90.0 fl (85-98); Nucleated Red Blood Cells % 0 %; Platelet Count 150 10^3/cmm (157-399); Red Blood Count 3.90 10^6/uL (3.85-5.65); White Blood Count 4.25 10^3/uL (3.29-11.43)
[2024-10-31 06:18] LABS: Alanine Aminotransferase 16 U/L (0-33); Albumin Level 3.0 g/dL (3.5-5.2); Alkaline Phosphatase 154 U/L (35-105); Anion Gap 14.9 (5-19); Aspartate Amino Transferase 41 U/L (0-32); Blood Urea Nitrogen 18 mg/dL (6-20); Calcium 8.3 mg/dL (8.5-10.5); Carbon Dioxide 27 mmol/L (22-29); Chloride 102 mmol/L (98-107); Creatinine Clr Calc Pharmacy 69.7790; Globulin 2.9 g/dL (1.3-4.6); Glucose 97 mg/dL (65-115); Magnesium 2.3 mg/dL (1.7-2.3); Osmolality Calculated 290 mOsm/kg (285-295); Potassium 4.9 mmol/L (3.5-5.1); Sodium 139 mmol/L (136-145); Total Protein 5.9 g/dL (6.6-8.7)
--- OUTSIDE RECORDS SUMMARY | 2024-10-31 06:49 | XMS_ITS | Encounter Summary ---
Author Organization [facility] Address [address] [place] [address] Care Team Providers Care Occupational Health Nurse Manager Name Role Phone Moustapha Estrella Kingsley [facility] Primary Care Provider [phone] Reason for Visit * Reason Onset Date Comments Results 09/22/2024 Patient Communication Encounter Details Date Type Department Care Team (Latest Contact Info) Description 09/22/2024 Results Follow-Up [facility] Medicine [place] [address] [address] Zuleyka Regalado, [facility] [address] [address] BEBE SCREEN W/REFLEX, TSH, COMPREHENSIVE [...] hematology but is agreeable to going to [place] for referral. She states that she did have a colonoscopy and EGD in September of 2023. Martha REESE * Telephone Encounter - Marhta Martinez RN - 09/27/2024 8:49 AM CDT [...] - 09/26/2024 10:07 AM CDT Copied from [facility] #[id number]. Topic: CPA Information Request >> Sep 26, 2024 10:04 AM Yves Beauchamp wrote: Caller is returning phone call from clinic. Caller Name: Sandy Ernandez Patient/Caregiver Callback Number: [phone] (mobile) Clinic Left Note In Chart Is there a note from the clinic requesting the caller be transferred when they call back? No Are the credentials of the caregiver who called the patient meal temperer? Yes Call Notes: Communicated information that is [...] on filedocumented in this encounter Care Teams Occupational Health Nurse Manager Relationship Specialty Start Date End Date Estrella Gerard FNP [address] [place] [address] PCP - General Nurse Practitioner Family 05/18/21 documented as of this encounter
--- OUTSIDE RECORDS SUMMARY | 2024-10-31 06:49 | XMS_ITS | Encounter Summary ---
Author Organization [facility] Address [address] [place] [address] Care Team Providers Care Bus Or Truck Garage Mechanic Name Role Phone Estrella Gerard Primary Care Provider [phone] Encounter Details Date Type Department Care Team ([facility] st Contact Info) Description 10/16/2024 Results Follow-Up [facility] Emergency Medicine [address] [place] [address] Shireen Mendez, RN URINE CULTURE [...] on filedocumented in this encounter Care Teams Bus Or Truck Garage Mechanic Relationship Specialty Start Date End Date Estrella Gerard FNP [address] [place] [address] PCP - General Nurse Practitioner Family 05/18/21 documented as of this encounter
--- OUTSIDE RECORDS SUMMARY | 2024-10-31 06:49 | XMS_ITS | Clinical Summary ---
Author Organization [facility] Address [address] [place] [address] Phone Care Team Providers Care Editorial Writer Name Role Phone Unavailable Primary Care Provider [...] (2 - Td or Tdap) 05/18/[address] [place] [address] [place] [address] NETWORK
--- OUTSIDE RECORDS SUMMARY | 2024-10-31 06:50 | XMS_ITS | Clinical Summary ---
Author Organization [facility] Address [address] [facility] [address] [place] [address] Phone Care Team Providers Care Ground Defence Officer Name Role Phone Ofe Gerardly Kingsley BENSON [...] STL ABSTRACTION Provider, Abstract 10/16/2024 Results Follow-Up [facility] Emergency Medicine [address] [facility] [address] [place] [address] Shireen Mendez, RN URINE CULTURE 10/15/2024 2:15 AM CDT - 10/15/2024 12:55 PM CDT Emergency [facility] Emergency Medicine [address] [facility] [address] [place] [address] Kodi Roman, Decompensated HCV cirrhosis (CMS/HCC) (Primary Dx); Other ascites; Bilateral lower extremity edema; Hepatic encephalopathy (CMS/HCC); Methamphetamine abuse (CMS/HCC); Abnormal urinalysis Discharge Disposition: Acute Care Hospital 10/15/2024 Travel 09/27/2024 Orders Only [address] [place] [address] Zuleyka Regalado, MARCELINO Anemia, unspecified type (Primary Dx) 09/26/2024 External Device Data STL ABSTRACTION Provider, Abstract 09/22/2024 Results Follow-Up [address] [place] [address] Zuleyka Regalado, MEDICAL RESEARCH ASSOCIATE BEBE SCREEN W/REFLEX, TSH, COMPREHENSIVE METABOLIC PANEL, Additional followed-up results: 5 09/20/2024 3:40 PM CDT Office Visit [address] [place] [phone] Zuleyka Regalado, MARCELINO Stomatitis (Primary Dx); Dermatitis; Primary insomnia; Pruritus 09/20/2024 External Device Data STL ABSTRACTION Provider, Abstract 09/19/2024 External Device Data STL ABSTRACTION Provider, Abstract 08/14/2024 5:20 PM CDT Office Visit [address] [place] [phone] Tara Mckeon FNP History of falling (Primary Dx); Chest pain on breathing; Other ascites; 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); Secondary esophageal varices with bleeding ([facility]/HCC) 08/14/[address] [place] [address] Tara Mckeon FNP Information 08/11/2024 10:41 AM CDT - 08/11/2024 11:59 PM CDT Hospital Encounter [facility] [address] [facility] [address] [place] [phone] Estrella Gerard FNP Discharge Disposition: Home or Self Care 08/11/2024 10:40 AM CDT - 08/11/2024 11:59 PM CDT Hospital Encounter [facility] [address] [facility] 60 [place] [phone] Estrella Gerard FNP Discharge Disposition: Home or Self Care 08/11/2024 Orders Only [facility] Admitting [address] [place] [phone] Estrella Gerard, MARCELINO Low back pain with sciatica, sciatica laterality unspecified, unspecified back pain laterality, unspecified chronicity (Primary Dx); Other chest pain 08/08/2024 External Device Data STL ABSTRACTION Provider, Abstract 08/08/2024 External Device Data STL ABSTRACTION Provider, Abstract 08/02/2024 Results Follow-Up [address] [phone] Breanna, Justine Laureano, MARCELINO CBC WITH DIFFERENTIAL, COMPREHENSIVE METABOLIC PANEL, AMMONIA LEVEL 08/02/2024 Results Follow-Up [address] [phone] Francy Zurita NP XR ABDOMEN 1 VW 08/01/2024 3:42 PM CDT - 08/01/2024 11:59 PM CDT Hospital Encounter [facility] [address] [place] [phone] Francy Zurita NP Discharge Disposition: Home or Self Care 08/01/2024 2:40 PM CDT Office Visit [address] [phone] Francy Zurita NP Flank pain (Primary Dx); Screening mammogram, encounter for; Vaginal bleeding; Dizziness; Loss of balance; History of fall; 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); Secondary esophageal varices with bleeding (CMS/HCC) 08/01/[address] [phone] Francy Zurita NP Patient Communication from Last [...] - 2 /hpf 10/15/2024 3:49 AM CDT [facility] RBC UA 3-5(A) 0 - 2 /hpf 10/15/2024 3:49 AM CDT [facility] BACTERIA UA 2+(A) Negative /hpf 10/15/2024 3:49 AM CDT [facility] EPITHELIAL CELLS, URINE 6-10(A) 0 - 5 /hpf 10/15/2024 3:49 AM CDT [facility] Urine URINE SPECIMEN OBTAINED BY CLEAN CATCH PROCEDURE / Unknown Collection / Unknown 10/15/2024 3:35 AM CDT 10/15/2024 3:39 AM CDT us Kodi Roman DO URINE ORDERABLES Final Result Performing Organization Address City/State/[facility] Co de Phone Number [facility] # [id number] [address] [place] [address] * (ABNORMAL) DRUG SCREEN, URINE (10/15/2024 3:35 AM CDT) CANNABINOIDS QUAL, URINE Negative Negative 10/15/2024 3:53 AM CDT [facility] PCP QUAL, URINE Negative Negative 3:53 AM CDT [facility] COCAINE QUAL URINE Negative Negative 2024 3:53 AM CDT [facility] METHAMPHETAMINE QUAL, URINE Presumptive Positive(A) Negative 10/15/2024 3:53 AM CDT [facility] OPIATE QUAL, URINE Negative Negative 2024 3:53 AM CDT [facility] AMPHETAMINE QUAL, URINE Presumptive Positive(A) Negative 10/15/2024 3:53 AM CDT [facility] BENZODIAZEPINE QUAL, URINE Negative Negative 10/15/2024 3:53 AM CDT [facility] TRICYCLICS QUAL, URINE Negative Negative 10/15/2024 3:53 AM CDT [facility] METHADONE QUAL, URINE Negative Negative 10/15/2024 3:53 AM CDT [facility] BARBITURATE QUAL, URINE Negative Negative 10/15/2024 3:53 AM CDT [facility] OXYCODONE QUAL, URINE Negative Negative 10/15/2024 3:53 AM T [facility] Urine URINE SPECIMEN OBTAINED BY CLEAN CATCH PROCEDURE / Unknown Collection / Unknown 10/15/2024 3:35 AM CDT 10/15/2024 3:39 AM CDT [facility] - 10/15/2024 3:53 AM CDT This test [...] Y Roman DO URINE ORDERABLES Final Result [facility] CLIA # [id number] [address] [place] [address] * (ABNORMAL) URINALYSIS WITH REFLEX MICROSCOPIC (10/15/2024 3:35 AM CDT) COLOR UA Yellow Pale to Dark Yellow 10/15/2024 3:49 AM T [facility] CLARITY UA Slightly Cloudy(A) Clear 10/15/2024 3:49 AM T [facility] SPECIFIC GRAVITY UA 1.015 1.003 - 1.035 10/15/2024 3:49 AM [facility] PH UA 6.0 5.0 - 8.0 10/15/2024 3:49 AM CDT [facility] LEUKOCYTE ESTERASE UA 2+(A) Negative 10/15/2024 3:49 AM CDT [facility] NITRITE UA Negative Negative 10/15/2024 3:49 AM CDT [facility] PROTEIN UA 1+(A) Negative 10/15/2024 3:49 AM CDT [facility] GLUCOSE UA Negative Negative 10/15/2024 3:49 AM CDT [facility] KETONES UA Negative Negative 10/15/2024 3:49 AM CDT [facility] UROBILINOGEN UA 1.0 <2.0 mg/dL 3:49 AM CDT [facility] BILIRUBIN UA 1+(A) Negative 10/15/2024 3:49 AM CDT [facility] BLOOD UA 2+(A) Negative 10/15/2024 3:49 AM CDT [facility] Urine URINE SPECIMEN OBTAINED BY CLEAN CATCH PROCEDURE / Unknown Collection / Unknown 10/15/2024 3:35 AM CDT 10/15/2024 3:39 AM CDT us Kodi Y Roman DO URINE ORDERABLES Final Result [facility] # [id number] [address] [place] [address] * (ABNORMAL) URINE CULTURE (10/15/2024 3:35 AM CDT) CULTURE ENTEROCOCCUS FAECALIS(A) FAISAL MCG/ML 10/17/2024 7:25 AM CDT [facility] Urine URINE SPECIMEN OBTAINED BY CLEAN [...] GENERAL ORDERABL ES Edited Result - Final [facility] # [id number] [facility] [address] [place] [address] * XR ABDOMEN ACUTE SERIES 2+ VWS [...] ED Physician in the absence of a ticket speculator: yes Rate: ECG rate: 68 ECG rate assessment: age appropriate Rhythm: Rhythm Origin: sinus Rhythm morphology: narrow Ectopy: Ectopy origin: PVCs [place]: QRS axis: Normal Intervals: prolonged QTC interval QRSTT: QRSTT changes: Yes Inferior (RCA) II, III, aVF: Q waves in III. Comments: Artifact noted Kodi Roman DO ECG ORDERABLES Final Result * (ABNORMAL) CBC WITH DIFFERENTIAL (10/15/2024 2:45 AM CDT) Only the most recent of3 resultswithin the time period is included. WBC 5.5 4.0 - 10.0 K/uL 10/15/2024 2:57 AM [facility] RBC 4.44 3.93 - 5.22 M/uL 10/15/2024 2:57 AM [facility] HEMOGLOBIN 12.3 11.2 - 15.7 g/dL 10/15/2024 2:57 AM [facility] HEMATOCRIT 36.8 34.1 - 44.9 % 10/15/2024 2:57 AM [facility] MCV 82.9 79.4 - 94.8 fL 10/15/2024 2:57 AM [facility] MCH 27.7 25.6 - 32.2 pg 10/15/2024 2:57 AM [facility] MCHC 33.4 32.2 - 35.5 g/dL 10/15/2024 2:57 AM [facility] RDW 14.8(H) 11.0 - 14.5 % 10/15/2024 2:57 AM [facility] RDW-STDEV 44.7 36.9 - 56.9 fL 10/15/2024 2:57 AM [facility] PLATELETS 131(L) 163 - 337 K/uL 10/15/2024 2:57 AM [facility] MPV 11.4 10.0 - 14.8 fL 10/15/2024 2:57 AM [facility] NEUTROPHILS 62 34 - 71 % 10/15/2024 2:57 AM [facility] LYMPHOCYTES 17(L) 19 - 52 % 10/15/2024 2:57 AM [facility] MONOCYTES 17(H) 5 - 13 % 10/15/2024 2:57 AM [facility] EOSINOPHILS 3 1 - 6 % 10/15/2024 2:57 AM [facility] BASOPHILS 1 0 - 1 % 10/15/2024 2:57 AM [facility] IMMATURE GRANULOCYTES 1 % 10/15/2024 2:57 AM [facility] NEUTROPHIL ABSOLUTE 3.41 1.56 - 6.13 K/uL 10/15/2024 2:57 AM [facility] LYMPHOCYTE ABSOLUTE 0.93(L) 1.20 - 3.40 K/uL 10/15/2024 2:57 AM [facility] MONOCYTE ABSOLUTE 0.93(H) 0.24 - 0.36 K/uL 10/15/2024 2:57 AM [facility] EOSINOPHIL ABSOLUTE 0.15 0.04 - 0.36 K/uL 10/15/2024 2:57 AM [facility] BASOPHILS ABSOLUTE 0.05 0.01 - 0.08 K/uL 10/15/2024 2:57 AM [facility] IMMATURE GRANULOCYTES ABSOLUTE 0.03 K/uL 10/15/2024 2:57 AM [facility] Blood Collection / Unknown 10/15/2024 2:45 AM CDT 10/15/2024 2:51 AM CDT us Kodi Y Roman DO HEMATOLOGY ORDERABLES Final Resu lt [facility] CLIA # [id number] [address] [place] [address] * (ABNORMAL) BRAIN NATRIURETIC PEPTIDE, BNP OR PROBNP (10/15/2024 2:45 AM CDT) PROBNP, N TERMINAL 1,727(H) 0 - 125 pg/mL 10/15/2024 3:10 AM CDT [facility] Comment: INTERPRETIVE COMMENT based on diagnosis: [...] ORDERABLES Final Resul t Performing Organization Address City/[facility]/ZIP Co de Phone Number [facility] # [id number] [address] [place] [address] * MAGNESIUM LEVEL (10/15/2024 2:45 AM CDT) MAGNESIUM 2.0 1.6 - 2.6 mg/dL 10/15/2024 3:10 AM CDT [facility] Blood Collection / Unknown 10/15/2024 2:45 AM CDT 10/15/2024 2:51 AM CDT us Kodi Y Roman DO CHEMISTRY ORDERABLES Final Resul t Performing Organization Address City/[facility]/ZIP Co de Phone Number [facility] CLIA # [id number] [address] [place] [address] * (ABNORMAL) LIPASE (10/15/2024 2:45 AM CDT) LIPASE 98(H) 13 - 60 U/L 10/15/2024 3:10 AM CDT [facility] Blood Collection / Unknown 10/15/2024 2:45 AM CDT 10/15/2024 2:51 AM CDT Kodi Y Roman DO CHEMISTRY ORDERABLES Final Resul t Performing Organization Address [facility] Co de Phone Number [facility] CLIA # [id number] [address] [place] [address] * (ABNORMAL) AMMONIA LEVEL (10/15/2024 2:45 AM CDT) Only the most recent of2 resultswithin the time period is included. AMMONIA 111.0(H) 11.0 - 51.0 umol/L 10/15/2024 3:14 AM CDT [facility] Blood, venous Collection / Unknown 10/15/2024 2:45 AM CDT 10/15/2024 2:51 AM CDT us Kodi Y Roman DO CHEMISTRY ORDERABLES Final Resul t Performing Organization Address [facility] Co de Phone Number [facility] CLIA # [id number] [address] [place] [address] * ETHANOL LEVEL (10/15/2024 2:45 AM CDT) ETHANOL <10.10 <10.10 mg/dL 10/15/2024 3:10 AM CDT [facility] ETHANOL % <0.01 %w/v 10/15/2024 3:10 AM CDT [facility] Blood Collection / Unknown 10/15/2024 2:45 AM CDT 10/15/2024 2:51 AM CDT us Kodiannie Huertaan DO CHEMISTRY ORDERABLES Final Resul t [facility] # [id number] [address] [place] [address] * (ABNORMAL) COMPREHENSIVE METABOLIC PANEL (10/15/2024 2:45 AM CDT) Only the most recent of3 resultswithin the time period is included. SODIUM 134(L) 136 - 145 mmol/L 10/15/2024 3:10 AM T [facility] POTASSIUM 4.1 3.5 - 5.1 mmol/L 10/15/2024 3:10 AM [facility] CHLORIDE 101 98 - 107 mmol/L 10/15/2024 3:10 AM [facility] CO2 23 22 - 29 mmol/L 10/15/2024 3:10 AM [facility] CALCIUM 8.8 8.6 - 10.0 mg/dL 10/15/2024 3:10 AM [facility] BUN 20 6 - 20 mg/dL 10/15/2024 3:10 AM [facility] CREATININE 1.51(H) 0.51 - 0.95 mg/dL 10/15/2024 3:10 AM [facility] GLUCOSE 97 74 - 99 mg/dL 10/15/2024 3:10 AM [facility] TOTAL PROTEIN 6.2(L) 6.6 - 8.7 g/dL 10/15/2024 3:10 AM [facility] ALBUMIN 2.8(L) 3.5 - 5.2 g/dL 10/15/2024 3:10 AM [facility] BILIRUBIN TOTAL 1.6(H) 0.0 - 1.2 mg/dL 10/15/2024 3:10 AM [facility] ALKALINE PHOSPHATASE 105(H) 35 - 104 U/L 10/15/2024 3:10 AM [facility] AST 61(H) 0 - 35 U/L 10/15/2024 3:10 AM CDT [facility] ALT 27 0 - 35 U/L 10/15/2024 3:10 AM CDT [facility] GFR 40(L) >=60 mL/min/1.7 3 sq meter 10/15/2024 3:10 AM CDT [facility] Comment:eGFR calculated with 2020 CKD-EPI equation. Vegetarian diet, extremely high or low muscle mass, and may affect results. Cystatin C with Glomerular Filtration Rate is a suitable alternative for these patients. ANION GAP 10 5 - 20 mmol/L 10/15/2024 3:10 AM CDT [facility] Blood Collection / Unknown 10/15/2024 2:45 AM CDT 10/15/2024 2:51 AM CDT us Kodi Y Roman DO CHEMISTRY ORDERABLES Final Resul t [facility] CLIA # [id number] [address] [place] [address] * ALLERGY PANEL, FOOD AND TREE NUTS [...] analytical performance characteristics have been determined by [employer]. It has not been cleared or approved by the U.S. Food and Drug Administration. This assay has been validated pursuant to the CLIA regulations and is used for clinical purposes. Test Performed at: [facility] [address] [facility] [place] [address] Yuriy Bridges MD Blood 09/20/2024 4:24 PM CDT 09/22/2024 5:11 AM CDT Zuleyka Regalado [facility] CHEMISTRY ORDERABLES Fin al Result [facility] [phone] [facility] [email or web address] [place] [address] * ALPHA-GAL PANEL (09/20/2024 4:24 PM CDT) ALLERGEN BEEF <0.10 kU/L [facility] [employer] [facility], ALLERGEN BEEF (F27) CLASS 0 [facility], RIBERA (F88) IGE <0.10 kU/L [facility], ALLERGEN RIBERA (F88) CLASS 0 [facility], ALLERGEN PORK <0.10 kU/L [facility] [employer] [facility], ALLERGEN PORK (F26) CLASS 0 [facility]/N [facility], GALACTOSE - ALPHA -1, 3 - GALACTOSE, IGE <0.10 <0.10 kU/L [facility] [employer] [facility], Comment: Results above 0.1 kU/L indicate an allergen-specific IgE sensitization to wywevvulz-k-8,3-galactose, and such patients are at risk for [...] method. Additional information can be found at http://www.MLW Squared.Jamn Test Performed at: [facility], [id number] [place] [address] Lisa Jeter MD,PhD,[place] Blood 09/20/2024 4:24 PM CDT 09/22/2024 5:11 AM CDT Zuleyka Regalado MEDICAL RESEARCH ASSOCIATE CHEMISTRY ORDERABLES Fin al Result [facility] [phone] [email or web address], [address] [place] [address] * (ABNORMAL) CELIAC DISEASE ANTIBODIES (09/20/2024 4:24 PM CDT) Pathologist [facility] CELIAC SEROLOGY INTER [facility] Comment: No serological evidence for celiac disease is present. tTg may normalize in individuals with celiac disease who maintain a gluten free diet. If high suspicion of celiac disease, consider HLA DQ2 and DQ8 testing to rule out celiac disease. TRANSGLUTAMINASE IGA AB <1.0 U/mL [facility] [employer] Comment: Value Interpretation ----- <15.0 Antibody not detected > or = 15.0 Antibody detected IGA 400(H) 47 - 310 mg/dL [facility] Comment: Test Performed at: [facility] [address] [place] [address] Alberto Humphrey Blood 09/20/2024 4:24 PM CDT 09/22/2024 5:11 AM CDT Zuleyka Regalado [facility] CHEMISTRY ORDERABLES Fin al Result Performing Organization Address [facility] Co de Phone Number [facility] [phone] [facility] [address] [facility] [place] [address] * BEBE SCREEN W/REFLEX (09/20/2024 4:24 PM CDT) BEBE SCREEN NEGATIVE NEGATIVE [facility] [place] Comment: BEBE IFA is a first line [...] AC-0: Negative International Consensus on BEBE Patterns (https://doi.org/10.1515/vaeb-9729-0307) For additional information, please refer to http://education.Focus IP/faq/PHC623 (This link is being provided for informational/ educational purposes only.) Test Performed at: [facility] [address] [place] [address] Yuriy Bridges MD Blood 09/20/2024 4:24 PM CDT 09/22/2024 5:11 AM CDT Zuleyka Varnerriott [facility] CHEMISTRY ORDERABLES Fin al Result Performing Organization Address City/[facility]/ZIP Co de Phone Number [facility] [phone] [facility] [address] [place] [address] * TSH (09/20/2024 4:24 PM CDT) TSH 1.43 0.40 - 4.50 mIU/L [facility] Comment: Test Performed at: [facility] [address] [place] [address] Yuriy Bridges MD Blood 09/20/2024 4:24 PM CDT 09/22/2024 5:11 AM CDT Zuleyka Jessica Regalado MEDICAL RESEARCH ASSOCIATE CHEMISTRY ORDERABLES Fin al Result Performing Organization Address City/[facility] Co de Phone Number [facility] [phone] [facility] [address] * VITAMIN B12 LEVEL (09/20/2024 4:24 PM CDT) VITAMIN B12 461 200 - 1100 pg/mL [facility] Comment: Test Performed at: [facility] [address] [place] [address] Yuriy Bridges MD Blood 09/20/2024 4:24 PM CDT 09/22/2024 5:11 AM CDT Zuleyka Jessica Regalado MEDICAL RESEARCH ASSOCIATE CHEMISTRY ORDERABLES Fin al Result Performing Organization Address [facility] Co de Phone Number [facility] [phone] [facility] [address] [place] [address] * XR LUMBAR SPINE 2 OR 3 [...] with preserved intervertebral disc heights. Remainder unremarkable. [facility] DIAGNOSTIC IMAGING ORDERABL ES Final Result * [...] identified. The osseous structures appear grossly intact. [facility] DIAGNOSTIC IMAGING ORDERABL ES Final Result * [...] UA POC Yellow Pale to Dark Yellow [facility] CLARITY UA POC Clear Clear, Other [facility] [place] GLUCOSE UA POC Negative Negative, Normal [facility] BILIRUBIN UA POC Negative Negative [facility] KETONES UA POC Negative Negative [facility] SPECIFIC GRAVITY UA POC 1.015 1.000 - 1.030 [facility] BLOOD UA POC 3+(A) Negative [facility] UA POC 6.0 5.0 - 8.0 [facility] IC [facility] PROTEIN UA POC Negative Negative [facility] UROBILINOGEN UA POC >8.0(A) <2.0 mg/dL [facility] NITRITE UA POC Negative Negative [facility] LEUKOCYTE ESTERASE UA POC 1+(A) Negative [facility] KIT LOT NUMBER POC [phone] [facility] KIT EXP DATE POC [id number] [facility] Urine 08/01/2024 2:50 PM CDT us Francy Zurita DIE REPAIR POINT OF CARE TESTING Final Re sult [facility] CLIA# [id number] [address] [place] [address] * COLONOSCOPY REPORT (09/29/2023 2:57 PM CDT) Narrative Procedure Note Steven Francis MD - 09/29/2023 2:57 PM CDT [facility] GI Patient Name: Sandy Ernandez Procedure [...] 2:39:39 PM Scope Out: 2:52:28 PM [address] [place], [place] Steven Francis MD GI PROCEDURE ORDERABLES F inal Result from Last 3 Months or Most Recently Relevant to Health Maintenance Insurance [facility] MEDICAID Advance Directives For more information, please contact: [phone] * Full Code (Latest Code Status on File) Date Activated Date Inactivated Comments 09/29/2023 1:00 PM 09/29/2023 5:24 PM Care Teams Ground Defence Officer Relationship Specialty Start Date End Date Estrella Gerard FNP [address] [place] [phone] PCP - General Nurse Practitioner Family 05/18/21
--- NOTE | 2024-10-31 09:20 | PC.CHAP ---
Pastoral Care Encounter/Spiritual Assessment Type of Contact [] Declined general merchandise manager visit [] Patient/Family/Request visit [] Outpatient visit [] Follow-up visit [] Physician referral [] Code/Alert [x] Routine visit [] Staff referral [] Actively dying [] Patient sleeping [] Family support [] [] Out of room [] Palliative care [] [] Receiving care in room [] Pre-surgical visit [] Trauma [] Long length of stay [] ICU visit [] Other: Relational/Emotional Strength [x] Patient feels connected with others/family/visitors/staff [] Distress [] Loneliness/isolation [] Abandonment Spirituality of Patient [x] Person of Lauren [] Attends Buddhist of their Lauren [x] Believes in Prayer [] Reads Bible or Evangelical materials [] There are Spiritual issues to be addressed District Loss Prevention Manager Interventions [x] Prayer [x] Active listening [x] Non-anxious presence [x] Spiritual/emotional support [] Crisis/trauma care [] Spiritual counseling [] Bereavement support [] Provided bereavement packet [] Provided Bible/devotional materials [] Provided toy/stuffed animal, coloring book to patient or family member [] Provided Communion [] Anointing/[place] [] Salvation [x] Completed spiritual assessment [] Other: Impact on Illness or Injury [] Angry [] Fearful [] Anxious [] Often cries [] Exhaustion [] Unable to work [] Unable to attend hinduism [] Unable to walk/stand [] Unable to read [] Unable to drive [] Unable to eat/drink [] Unable to sleep [] Unable to be with family [] Patient intubated [] Other: Summary Time spent with patient 5 min
--- NOTE | 2024-10-31 14:05 | P.PN_ITS ---
Subjective 2 Subjective: Continues to complain of flank pain today. CT abdomen reviewed with radiologist. No common bile duct dilation. Repeat ultrasound this morning did not show significant ascites to tap again. Vitals have been stable overnight. Patient has been afebrile. She has been continued on Zosyn at this time. Vitals/I&O/Wt Last Vital Signs Temp 98.2 F 10/31/24 11:13 Pulse 69 10/31/24 11:13 Resp 16 10/31/24 11:13 BP 104/62 10/31/24 11:13 Pulse Ox 96 10/31/24 11:13 O2 Del Method Room Air 10/31/24 11:13 10/30/24 10/31/24 10/31/24 22:59 06:59 14:59 Intake Total 1100 / 1100 100 / 1200 522 / 522 Balance 1100 / -4650 100 / -4550 522 / 522 Weight last 48 hrs Weight 92.533 kg Weight 90.718 kg Weight 90.718 kg Physical Exam 2 Narrative: General: Alert oriented x3, HEENT: Normocephalic, atraumatic, EOMI, breathing room air Cardio: Regular rate rhythm, normal S1-S2, Respiratory: Clear to auscultation bilaterally no wheezes no rhonchi GI: Abdomen soft, nontender, mildly distended secondary to underlying cirrhosis. Bowel sounds + Extremities: No edema bilateral lower extremities Data 10/31/24 04:25 10/31/24 04:25 Micro: Microbiology 10/30/24 13:05 Blood Culture - Preliminary Blood NEGATIVE TO DATE 10/30/24 11:00 Gram Stain - Final Ascites Fluid Body Fluid Culture - Preliminary 10/30/24 09:50 Urine Culture - Preliminary Urine,Clean Catch 10/30/24 14:10 Blood Culture - Preliminary Blood SPECIMEN COLLECTED A&P Assessment and plan 1. Noncompliance: 2. High risk medication use: 3. Anxiety: 4. Post-traumatic stress disorder, chronic: 5. Generalized anxiety disorder: 6. Major depressive disorder, recurrent, moderate: 7. Cirrhosis: 8. S/P abdominal paracentesis: 9. History of nephrolithiasis: 10. UTI (urinary tract infection): 11. Hepatitis C: Plan: #UTI #Abdominal ascites #Kidney stone 3.8 mm #Bilateral flank pain secondary to above #History of methamphetamine abuse #Generalized anxiety disorder #History of hepatitis C #History of liver cirrhosis ? Per urology no acute intervention needed. This was discussed with Dr. Howell urology at [facility] by ER physician ? Patient on cephalexin since October 26. Will switch to IV Zosyn at this time. Previous urine culture showed Enterococcus faecalis ? Check urine culture, blood cultures ? Initial suspicion for SBP by ER physician. Ascites fluid analysis reviewed. I do not believe this is SBP. ?Will continue on Zosyn. Await urine culture. ? Patient had 5 L removed via paracentesis today. ? Order 1 unit of albumin. ? Will need urology follow-up as an outpatient ? If patient does deteriorate or develops sepsis versus septic shock may require urgent urological intervention and will need to be transferred to higher level of care. ? Continue Lasix, potassium, rifaximin, paroxetine ? Hydrocodone 5 every 8 hours as needed for pain ? Will order paracentesis for a.m. DVT prophylaxis: SCDs Full code 10/31/2024 Continue antibiotics for UTI at this time. Patient does have a known kidney stone at this point. She will need to follow- up outpatient. Await urine culture She is status post 5 L of ascitic fluid removal via paracentesis. Continue Lasix potassium Effexor and paroxetine. Hydrocodone 5 every 8 hours as needed for pain. PDMP PDMP Reviewed: Not Reviewed Attestations 2 Medical Necessity Statement*: Observation admission for UTI and pain control. Will need results of urine culture prior to discharge. Diagnoses Noncompliance Z91.199 High risk medication use Z79.899 Anxiety F41.9 Post-traumatic stress disorder, chronic F43.12 Generalized anxiety disorder F41.1 Major depressive disorder, recurrent, moderate F33.1 Cirrhosis K74.60 S/P abdominal paracentesis Z98.890 History of nephrolithiasis Z87.442 UTI (urinary tract infection) N39.0 Hepatitis C B19.20
[2024-10-31] MEDS: HYDROcodone-acetaminophen 5-325 mg Tablet 1 TAB PO (15:39)
[2024-10-31] MEDS: heparin 5,000 unit/mL INJ 1 mL 5000 UNIT SUBCUT (16:33)
--- NOTE | 2024-10-31 17:36 | US_ITS ---
WS: [id number] Abdominal ultrasound, limited. History: Evaluate for ascites. Comparison: CT 10/30/2024 All 4 quadrants are imaged by ultrasound to evaluate for ascites. There is a small amount of ascites in the RIGHT upper and lower quadrants. Insufficient for safe paracentesis. US/US abdomen lmt fluid [id number] IMPRESSION: Insufficient ascites for paracentesis.
[2024-11-01] VITALS (7 sets, daily range): BP systolic 107–125; BP diastolic 57–79; PULSE 66–70; RESP 15–17; TEMP 36.7–36.9; O2SAT 96–99
[2024-11-01] MEDS: piperacillin-tazobactam 3.375 GM in sodium chloride 0.9% (plus) 50 ML IV ×3 (01:04→17:06)
[2024-11-01] MEDS: heparin 5,000 unit/mL INJ 1 mL 5000 UNIT SUBCUT ×2 (03:57→17:05)
[2024-11-01 05:45] LABS: Hematocrit 34.0 % (36-47); Hemoglobin 10.40 g/dL (11.27-16.99); Mean Corpuscular HGB Conc 30.6 g/dL (30-55); Mean Corpuscular Hemoglobin 27.2 pg (27-33); Mean Corpuscular Volume 88.8 fl (85-98); Nucleated Red Blood Cells % 0 %; Platelet Count 123 10^3/cmm (157-399); Red Blood Count 3.83 10^6/uL (3.85-5.65); White Blood Count 3.43 10^3/uL (3.29-11.43)
[2024-11-01 06:11] LABS: Alanine Aminotransferase 13 U/L (0-33); Albumin Level 2.5 g/dL (3.5-5.2); Alkaline Phosphatase 167 U/L (35-105); Anion Gap 14.1 (5-19); Aspartate Amino Transferase 31 U/L (0-32); Blood Urea Nitrogen 20 mg/dL (6-20); Calcium 7.8 mg/dL (8.5-10.5); Carbon Dioxide 25 mmol/L (22-29); Chloride 104 mmol/L (98-107); Creatinine Clr Calc Pharmacy 58.3808; Globulin 2.9 g/dL (1.3-4.6); Glucose 106 mg/dL (65-115); Magnesium 2.3 mg/dL (1.7-2.3); Osmolality Calculated 291 mOsm/kg (285-295); Potassium 4.1 mmol/L (3.5-5.1); Sodium 139 mmol/L (136-145); Total Protein 5.4 g/dL (6.6-8.7)
--- NOTE | 2024-11-01 09:46 | CT_ITS ---
WS: [id number] CT ABDOMEN PELVIS TECHNIQUE: Noncontrast CT of the abdomen and pelvis with coronal and sagittal reformatted images. CLINICAL INFORMATION: persistent abdominal pain, RUQ area, pleuritic COMPARISON: None. DLP: 954.[address] scans at [facility] use at least one of these dose optimization techniques: automated exposure control; mA and/or kV adjustment per patient size (includes targeted exams where dose is matched to clinical indication); or iterative reconstruction. FINDINGS: Previously described 3.8 mm LEFT UPJ calculus is unchanged compared to 10/30/2024. Stable LEFT pelvicaliectasis. Diffuse body wall anasarca. Perihepatic ascites appears stable compared to previous. Similar-appearing pelvic ascites. Small amount of ascites in the paracolic gutters. Small RIGHT pleural effusion appears unchanged with stable compressive atelectasis RIGHT lower lobe. No LEFT pleural fluid. Cirrhotic liver with portal venous hypertension and portosystemic collaterals. Upper abdominal varices. Small esophageal hiatal hernia. Cholecystectomy. Adrenal glands are normal. No hydronephrosis in the RIGHT kidney. Air-fluid levels in the transverse colon compatible with adynamic ileus appears progressed compared to previous. No evidence of high-grade obstruction. Mild fecal retention in the sigmoid colon. CT/CT abdomen pelvis wo con [id number] IMPRESSION: 1. Stable obstructing LEFT 3.8 mm UPJ calculus. This is unchanged compared to previous. Stable mild LEFT pelvicaliectasis. 2. Small RIGHT pleural effusion is unchanged. Stable compressive atelectasis R IGHT lower lobe also unchanged. 3. Mild transverse colon adynamic ileus with air-fluid levels appears new from previous. No evidence of high-grade obstruction. 4. Small esophageal hiatal hernia. 5. Diffuse body wall anasarca with stable ascites mainly about the liver and i n the pelvis. 6. Cirrhosis with splenomegaly and evidence of portal venous hypertension with advanced portosystemic collaterals and upper abdominal varices.
--- NOTE | 2024-11-01 10:58 | PM.PN ---
Subjective Subjective: Seen this morning. She complains of abdominal pain and right upper quadrant area. She had a bowel movement this morning as well. Abdomen feels distended Nontender however Vitals/I&O/Wt Last Vital Signs Temp 98.4 F 11/02/24 11:02 Pulse 69 11/02/24 11:02 Resp 16 11/02/24 11:02 BP 125/65 11/02/24 11:02 Pulse Ox 95 11/02/24 11:02 O2 Del Method Room Air 11/02/24 07:41 11/01/24 11/02/24 11/02/24 22:59 06:59 14:59 Intake Total 510 / 1400.000 530 / 1930.000 681.458 / 681.458 Output Total 800 / 800 Balance -290 / 600.000 530 / 1130.000 681.458 / 681.458 Weight last 48 hrs Weight 93.468 kg Weight 93.242 kg Physical Exam Narrative: General: Alert oriented x3, HEENT: Normocephalic, atraumatic, EOMI, breathing room air Cardio: Regular rate rhythm, normal S1-S2, Respiratory: Clear to auscultation bilaterally no wheezes no rhonchi GI: Abdomen soft, nontender, distended abdomen today bowel sounds +, nontender to right upper quadrant Extremities: No edema bilateral lower extremities Data 11/01/24 05:08 11/01/24 05:08 Micro: Microbiology 10/30/24 11:00 Gram Stain - Final Ascites Fluid Body Fluid Culture - Final 10/30/24 09:50 Urine Culture - Final Urine,Clean Catch A&P Assessment and plan 1. Noncompliance: 2. High risk medication use: 3. Anxiety: 4. Post-traumatic stress disorder, chronic: 5. Generalized anxiety disorder: 6. Major depressive disorder, recurrent, moderate: 7. Cirrhosis: 8. S/P abdominal paracentesis: 9. History of nephrolithiasis: 10. UTI (urinary tract infection): 11. Hepatitis C: Plan: #UTI #Abdominal ascites #Kidney stone 3.8 mm #Bilateral flank pain secondary to above #History of methamphetamine abuse #Generalized anxiety disorder #History of hepatitis C #History of liver cirrhosis ? Per urology no acute intervention needed. This was discussed with Dr. Howell urology at [facility] by ER physician ? Patient on cephalexin since October 26. Will switch to IV Zosyn at this time. Previous urine culture showed Enterococcus faecalis ? Check urine culture, blood cultures ? Initial suspicion for SBP by ER physician. Ascites fluid analysis reviewed. I do not believe this is SBP. ?Will continue on Zosyn. Await urine culture. ? Patient had 5 L removed via paracentesis today. ? Order 1 unit of albumin. ? Will need urology follow-up as an outpatient ? If patient does deteriorate or develops sepsis versus septic shock may require urgent urological intervention and will need to be transferred to higher level of care. ? Continue Lasix, potassium, rifaximin, paroxetine ? Hydrocodone 5 every 8 hours as needed for pain ? Will order paracentesis for a.m. DVT prophylaxis: SCDs Full code 10/31/2024 Continue antibiotics for UTI at this time. Patient does have a known kidney stone at this point. She will need to follow-up outpatient. Await urine culture She is status post 5 L of ascitic fluid removal via paracentesis. Continue Lasix potassium Effexor and paroxetine. Hydrocodone 5 every 8 hours as needed for pain. 11/01/[address] abdomen pelvis Repeat ultrasound for verifying ascites Will order 1 unit of albumin at this time. Continue Lasix, antibiotics, rifaximin. They were able to do a repeat paracentesis we can do that today Her pain seems to be pleuritic in nature and every time she takes a deep breath it hurts. She has third spacing and has low albumin. I will try a unit of albumin today and see if that helps We ordered lactulose and MiraLAX for patient however she has refused that at this time as well. Continue to monitor at this time. Further recommendations to be made after CT abdomen pelvis results. May consider consulting general surgery. PDMP PDMP Reviewed: Not Reviewed Attestations Medical Necessity Statement*: Continues to have abdominal pain. Diagnoses Noncompliance Z91.199 High risk medication use Z79.899 Anxiety F41.9 Post-traumatic stress disorder, chronic F43.12 Generalized anxiety disorder F41.1 Major depressive disorder, recurrent, moderate F33.1 Cirrhosis K74.60 S/P abdominal paracentesis Z98.890 History of nephrolithiasis Z87.442 UTI (urinary tract infection) N39.0 Hepatitis C B19.20
[2024-11-01] MEDS: HYDROcodone-acetaminophen 5-325 mg Tablet 1 TAB PO (12:56)
--- NOTE | 2024-11-01 13:32 | US_ITS ---
WS: [id number] Abdominal ultrasound for ascites evaluation, 11/01/2024 Clinical Data: ascites, abd pain Comparison: Abdominal ultrasound for ascites evaluation, Yesterday Findings: The 4 quadrants were imaged. There is only a small amount of ascites mostly in the left lower quadrant. US/US abdomen lmt fluid [id number] Impression: Minimal amount of ascites in the left lower quadrant.
[2024-11-01] MEDS: albumin 25 G/100 ML BAG 60 G IV (14:58)
--- NOTE | 2024-11-01 15:52 | PM.CONSULT ---
Providers/Reason For Consult Consulting Physician/Specialty*: General Surgery Reason for Consult*: Abdominal pain Attending Physician: Nicci Goodman MD Primary Care Provider: MARCELINO Rodrigez History of Present Illness History of Present Illness Sandy Ernandez is a 59 year old female who is admitted to the hospital with right upper quadrant abdominal pain over the last week or so. According to the patient she is having significant pain in the right upper quadrant and right flank region. Denies changes in bowel movements tolerating diet she has history of cirrhosis undergoes paracentesis multiple times a week and they usually remove about 5 L. She is admitted to the hospital for workup of this pain and also for pain control. Laboratory workup is grossly unremarkable other than chronic changes from liver disease, imaging is also negative shows cirrhosis ascites but no acute findings. I have been consulted for evaluation for possible additional causes of abdominal pain. Review of Systems Narrative: 10 point review of systems done negative otherwise noted in HPI Medications/Allergies Home Medications ?Medication ?Instructions ?Recorded ?Confirmed ?Last Taken ?Type rifaximin 550 mg tablet (Xifaxan) 550 mg PO BID 12/10/23 10/30/24 10/14/24 History hydroxyzine HCl 50 mg tablet 50 mg PO QID PRN for sleep or 10/10/24 10/30/24 10/29/24 Rx panic attack #120 tabs paroxetine HCl 40 mg tablet 40 mg PO DAILY #30 tabs 10/10/24 10/30/24 10/29/24 Rx furosemide 40 mg tablet (Lasix) 40 mg PO DAILY 30 days #30 tabs 10/20/24 10/30/24 10/29/24 Rx potassium chloride 20 mEq 40 meq (2 x 20 mEq) PO DAILY 30 10/20/24 10/30/24 10/29/24 Rx tablet,extended days #60 tabs release(part/cryst) (Klor-Con M) cephalexin 500 mg capsule 500 mg PO TID 7 days #21 caps 10/26/24 10/30/24 Unknown Rx Allergies Allergy/AdvReac Type Severity Reaction Status Date / Time tramadol Allergy ADR-Nausea Verified 10/30/24 09:31 NSAIDS (Non-Steroidal AdvReac Unknown Verified 10/30/24 09:31 Anti-Inflamma Current Medications Generic Name Dose Route Start Last Admin Trade Name Freq PRN Reason Stop Dose Admin Acetaminophen 650 mg 10/30/24 16:42 10/31/24 12:56 Acetaminophen 325 Mg Tablet PO 650 mg Q6H PRN Administration Mild/Mod Pain Or Temp >/= 101 Hydrocodone Bitart/Acetaminophen 1 tab 10/31/24 14:19 11/01/24 12:56 Hydrocodone-Acetaminophen 5-325 Mg Tablet PO 1 tab Q8H PRN Administration MODERATE PAIN Furosemide 40 mg 10/31/24 09:00 11/01/24 08:45 Furosemide 40 Mg Tablet PO 40 mg DAILY ABBIE Administration Heparin Sodium (Porcine) 5,000 unit 10/30/24 16:45 11/01/24 03:57 Heparin 5,000 Unit/Ml Inj 1 Ml SUBCUT 5,000 unit Q12H ABBIE Administration Piperacillin Sod/Tazobactam 50 mls @ 12.5 mls/hr 10/30/24 17:00 11/01/24 13:01 Sod 3.375 gm/ Sodium Chloride IV Infused Q8H ABBIE Infusion Albumin Human 25 g in 100 mls @ 60 mls/hr 11/01/24 14:38 11/01/24 14:58 Albumin IV 11/01/24 16:17 60 mls/hr ONCE ONE Administration Lactulose 20 gm 11/01/24 13:45 11/01/24 14:06 Lactulose Oral Liq 20 Gm/30 Ml Udc PO Not Given Q12H ABBIE Pantoprazole Sodium 40 mg 10/31/24 09:00 11/01/24 08:[address] 40 Mg Tablet PO 40 mg DAILY ABBIE Administration Paroxetine HCl 40 mg 10/31/24 09:00 11/01/24 08:45 Paroxetine 20 Mg Tablet PO 40 mg DAILY ABBIE Administration Rifaximin 600 mg 10/30/24 21:34 11/01/24 08:45 Rifaximin 200 Mg Tablet PO 600 mg BID ABBIE Administration PFSH Acute PFSH: Medical History (Updated 10/30/24 @ 13:51 by Sergei Nieto DO) History of nephrolithiasis Methamphetamine use disorder, severe, in sustained remission Celiac disease Cirrhosis Enterococcus UTI Thrombocytopenia S/P abdominal paracentesis Hepatitis C Family History Mother Hypertension Family/Other Hypertension Denies family history of Diabetes CAD (coronary artery disease) Cancer Social History Smoking and tobacco/nicotine status: never used tobacco/nicotine Second hand smoke exposure: Yes Alcohol intake: former Former alcohol use details: 25 years ago Substance/Drug Use: former Former substance use details: 5-6 years ago Adopted: No Caregiver/support person: No Lives independently: Yes Household members: friend(s) Housing: House Marital status: Marital status details: [place], never met him outside of [place] Number of children: 2 Number of grandchildren: 5 Highest education level completed: Some College, No Degree service: No Current occupational status: disabled Current occupation: working on getting disability Current occupational exposures/hazards: No Pets and animals: Yes Pets & animals: dog(s) Leisure activites: other Leisure activities details: watch movies and play with grand kids Sexually active: No Do you think of yourself as: Straight/Heterosexual Current gender identity: Female Lauren/Holiness: Taoist Special lauren needs: No Agree to transfusion: Yes Female Reproductive History: Para: 2 Vitals/I&O/Wt Last Vital Signs Temp 98.1 F 11/01/24 11:46 Pulse 66 11/01/24 13:47 Resp 15 11/01/24 13:47 BP 125/75 11/01/24 11:46 Pulse Ox 97 11/01/24 13:47 O2 Del Method Room Air 11/01/24 13:47 11/01/24 11/01/24 11/01/24 06:59 14:59 22:59 Intake Total 50 / 742 890.000 / 890.000 Output Total 2 / 2 Balance 48 / 740 890.000 / 890.000 Weight last 48 hrs Weight 205 lb 9 oz Weight 204 lb Weight 200 lb Physical Exam GI: OTHER: Abdominal exam is benign the abdomen is distended there is an ascitic wave, the tenderness of the patient is mostly in the right upper quadrant overlaying the lower chest wall, consistent with the position of the liver and lower aspect of the lung. Data 11/01/24 05:08 11/01/24 05:08 Micro: Microbiology 10/30/24 11:00 Gram Stain - Final Ascites Fluid Body Fluid Culture - Preliminary 10/30/24 09:50 Urine Culture - Final Urine,Clean Catch 10/30/24 14:10 Blood Culture - Preliminary Blood NEGATIVE TO DATE 10/30/24 13:05 Blood Culture - Preliminary Blood NEGATIVE TO DATE A&P Assessment and plan 1. Abdominal ascites: 2. Hepatitis C: 3. Cirrhosis: 4. S/P abdominal paracentesis: 5. Bilateral flank pain: 6. SBP (spontaneous bacterial peritonitis): Plan: After complete history, physical examination and review of all available clinical data the following is my assessment. At this point there is no acute intra-abdominal process that may justify patient abdominal pain. Patient has previous cholecystectomy. She has cirrhosis and ascites but this is stable. Abdominal examination is completely benign and location of pain is consistent with lower chest wall rather than abdominal compartment. CT scan of the abdomen pelvis show evidence of right lower lobe atelectasis as well as some right pleural effusion. This may be contributing to patient pain as she states that she gets more pain whenever she takes a deep breath. I have asked for the nurses to provide her with an incentive spirometer to help with the symptoms. I Personally reviewed the imaging and I cannot identify any other reasons for acute intra-abdominal pain. The possible mild colonic ileus is likely reactive no need for additional management needs identified. At this point unfortunately there is no additional intervention from the surgical standpoint that could help to elucidate the causes of the patient pain. Recommend pain management per primary team and general surgery remains available in case of changes in clinical status. Patient does report that she has not been able to sleep almost a week due to the pain but at the moment of my evaluation when I arrived to the room the patient was comfortably sleeping in bed, I also discussed with the nursing staff and they state that the patient has been able to sleep all night over the last 48 hours. PDMP PDMP Reviewed: Not Reviewed Coding Level of Care Code Acute Code for Chg Fwd Diagnoses Abdominal ascites R18.8 Hepatitis C B19.20 Cirrhosis K74.60 S/P abdominal paracentesis Z98.890 Bilateral flank pain R10.9 SBP (spontaneous bacterial peritonitis) K65.2
[2024-11-02] VITALS: BP 118/75; PULSE 55; RESP 16; TEMP 36.5; O2SAT 96
[2024-11-02] MEDS: piperacillin-tazobactam 3.375 GM in sodium chloride 0.9% (plus) 50 ML IV ×2 (02:52→08:47)
[2024-11-02 04:00] VITALS: BP 117/73; PULSE 66; RESP 16; TEMP 36.9; O2SAT 96
[2024-11-02] MEDS: heparin 5,000 unit/mL INJ 1 mL 5000 UNIT SUBCUT (05:38)
[2024-11-02 07:41] VITALS: BP 125/65; PULSE 69; RESP 14; TEMP 36.9; O2SAT 95
--- NOTE | 2024-11-02 08:50 | PM.DCS ---
Discharge Providers Date of Admission: 10/30/24 17:37 Date of Discharge: November 02, 2024 Attending Provider at Admission: Nicci Goodman MD Attending Provider at Discharge: Nicci Goodman MD Primary Care Provider: MARCELINO Rodrigez Diagnoses at Discharge Discharge Diagnosis 1. Abdominal ascites: 2. Hepatitis C: 3. Cirrhosis of liver without ascites, unspecified hepatic cirrhosis type: 4. S/P abdominal paracentesis: 5. Bilateral flank pain: 6. SBP (spontaneous bacterial peritonitis): Reason for Visit Reason for Visit: abd pain Hospital Course Hospital Course Sandy Ernandez is a 59 year old female past medical history of liver cirrhosis recurrent ascites history hepatitis C, history of hepatic encephalopathy, methamphetamine use presented to the ER today due to complaint of flank pain and abdominal pain. Paracentesis performed in the ER 5 L fluid was removed sent for cytology. CT abdomen pelvis was performed which showed 3.8 mm kidney stone with mild left pelvic caliectasis. This is new compared to 04/10/1909/22/2024. Patient was recently discharged from the hospital on 10/1819. At that visit she was treated for diastolic CHF exacerbation. She was discharged on home spironolactone and 40 of Lasix daily. She was also placed on a fluid restriction. She was recently diagnosed with a urinary tract infection and discharged home on oral antibiotics. She has taken cephalexin for the last 4 days however continues to complain of flank pain. Case was discussed with Dr. Howell urologist at [facility] by ER physician. No acute intervention by urology was recommended at this point. She was recommended to continue on oral antibiotics and follow-up with urology as an outpatient. Secondary to failing outpatient antibiotic treatment with suspicion of SBP patient was recommended for admission here. Ascites fluid cytology is not indicating SBP at this time. Discussed with your doctor over the phone Will admit patient here for observation for pain control and UTI. Patient states that she has bilateral flank pain and gets weekly paracentesis done. At the previous visits she had 8 and 9 L removed however on average it was around 5 L. He says she feels slightly better after fluid removal today however is not back to her baseline yet. Abdomen is not tender to palpation Paracentesis was performed during hospital stay. Patient reported persistent abdominal pain. CT abdomen pelvis was pursued. Repeat abdominal ultrasound was done to evaluate for further ascites. IV albumin was given. Patient had quite a bit of ascites due to third spacing. After albumin administration her abdominal pain improved slightly. She does have a known kidney stone for which she will need to follow-up with urology as an outpatient. She was referred to [facility] at time of discharge. Patient was advised to come back for her routine paracentesis as an outpatient. Fluid cytology was not suggestive of SBP. Physical Exam Narrative: General: Alert oriented x3, HEENT: Normocephalic, atraumatic, EOMI, breathing room air Cardio: Regular rate rhythm, normal S1-S2, Respiratory: Clear to auscultation bilaterally no wheezes no rhonchi GI: Abdomen soft, nontender, distended abdomen today bowel sounds +, nontender to right upper quadrant Extremities: No edema bilateral lower extremities Discharge Data Studies Completed and Pending Completed Studies During Hospitalization Category Date Time Status CT abdomen pelvis wo con [id number] Stat Cat Scan 10/30/24 13:[address] abdomen pelvis wo con [id number] Stat Cat Scan 11/01/24 09:46 Completed US abdomen lmt fluid [id number] Routine Ultrasound 11/01/24 13:32 Completed US abdomen lmt fluid [id number] Stat Ultrasound 10/31/24 17:36 Com[place]acentesis abd w [id number] Stat Ultrasound 10/30/24 10:07 Completed Pending at discharge Category Date Time Status Blood Culture Stat Lab 10/30/24 14:10 Results Body Fluid Culture & GS Stat Lab 10/30/24 11:00 Results CBC Auto Diff [Complete Blood Count w/Auto] Stat Lab 11/02/24 07:17 Stop Req Radiology Impressions Paracentesis Ultrasound 10/30/24 10:07 IMPRESSION: Uncomplicated paracentesis yielding 5750 ml of peritoneal fluid. Abdomen/Pelvis CT 11/01/24 09:46 IMPRESSION: 1. Stable obstructing LEFT 3.8 mm UPJ calculus. This is unchanged compared to previous. Stable mild LEFT pelvicaliectasis. 2. Small RIGHT pleural effusion is unchanged. Stable compressive atelectasis RIGHT lower lobe also unchanged. 3. Mild transverse colon adynamic ileus with air-fluid levels appears new from previous. No evidence of high-grade obstruction. 4. Small esophageal hiatal hernia. 5. Diffuse body wall anasarca with stable ascites mainly about the liver and in the pelvis. 6. Cirrhosis with splenomegaly and evidence of portal venous hypertension with advanced portosystemic collaterals and upper abdominal varices. Abdomen Ultrasound 11/01/24 13:32 Impression: Minimal amount of ascites in the left lower quadrant. Laboratory Results WBC 3.43 10^3/uL (3.29-11.43) 11/01/24 05:08 RBC 3.83 10^6/uL (3.85-5.65) L 11/01/24 05:08 Hgb 10.40 g/dL (11.27-16.99) L 11/01/24 05:08 Hct 34.0 % (36-47) L 11/01/24 05:08 MCV 88.8 fl (85-98) 11/01/24 05:08 MCH 27.2 pg (27-33) 11/01/24 05:08 MCHC 30.6 g/dL (30-55) 11/01/24 05:08 RDW 15.4 % (12.1-15.1) H 11/01/24 05:08 Plt Count 123 10^3/cmm (157-399) L 11/01/24 05:08 MPV 11.9 fL (7.4-10.4) H 11/01/24 05:08 Neut % (Auto) 49.2 % 11/01/24 05:08 Lymph % (Auto) 24.2 % 11/01/24 05:08 [place] % (Auto) 16.6 % 11/01/24 05:08 Eos % (Auto) 8.2 % 11/01/24 05:08 Baso % (Auto) 1.5 % 11/01/24 05:08 Neut # (Auto) 1.69 10^3/uL (1.8-7.7) L 11/01/24 05:08 Lymph # (Auto) 0.8 10^3/uL (0.8-4.8) 11/01/24 05:08 [place] # (Auto) 0.6 10^3/uL (0.2-0.9) 11/01/24 05:08 Eos # (Auto) 0.3 10^3/uL (0.0-0.8) 11/01/24 05:08 Baso # (Auto) 0.1 10^3/uL (0.0-0.1) 11/01/24 05:08 Nucleated RBC % (auto) 0 % 11/01/24 05:08 Nucleated RBCs # 0.0 /100WBC 11/01/24 05:08 Differential Comment Yes 10/30/24 11:00 ESR 35 mm/hr (0-15) H 10/30/24 09:45 PT 14.80 SECONDS (12.1-14.9) 10/30/24 09:45 INR 1.08 (0.8-1.2) 10/30/24 09:45 APTT 28.8 SECONDS (23.9-36.7) 10/30/24 09:45 Sodium 139 mmol/L (136-145) 11/01/24 05:08 Potassium 4.1 mmol/L (3.5-5.1) 11/01/24 05:08 Chloride 104 mmol/L (98-107) 11/01/24 05:08 Carbon Dioxide 25 mmol/L (22-29) 11/01/24 05:08 Anion Gap 14.1 (5-19) 11/01/24 05:08 BUN 20 mg/dL (6-20) 11/01/24 05:08 Creatinine 1.2 mg/dL (0.5-0.9) H 11/01/24 05:08 GFR Calculation 46.3 mL/min (90-130) L 11/01/24 05:08 Glucose 106 mg/dL (65-115) 11/01/24 05:08 Calculated Osmolality 291 mOsm/kg (285-295) 11/01/24 05:08 Lactic Acid 1.0 mmol/L (0.5-2.2) 10/30/24 13:05 Calcium 7.8 mg/dL (8.5-10.5) L 11/01/24 05:08 Magnesium 2.3 mg/dL (1.7-2.3) 11/01/24 05:08 Total Bilirubin 0.9 mg/dL (0.15-1.2) 11/01/24 05:08 AST 31 U/L (0-32) 11/01/24 05:08 ALT 13 U/L (0-33) 11/01/24 05:08 Alkaline Phosphatase 167 U/L (35-105) H 11/01/24 05:08 Ammonia 76 umol/L (11-51) H 10/30/24 09:45 C-Reactive Protein 13.2 mg/L (0.0-4.9) H 10/30/24 17:11 Total Protein 5.4 g/dL (6.6-8.7) L 11/01/24 05:08 Albumin 2.5 g/dL (3.5-5.2) L 11/01/24 05:08 Globulin 2.9 g/dL (1.3-4.6) 11/01/24 05:08 Lipase 63 U/L (13-60) H 10/30/24 09:45 Procalcitonin 0.06 ng/mL (0-0.5) 10/30/24 17:11 Urine Color Yellow (Yellow) 10/30/24 09:50 Urine Appearance Clear (CLEAR) 10/30/24 09:50 Urine pH 6.0 (5-7) 10/30/24 09:50 Ur Specific [place] 1.015 (1.005-1.030) 10/30/24 09:50 Urine Protein Negative (Negative) 10/30/24 09:50 Urine Glucose (UA) Negative (Normal) 10/30/24 09:50 Urine Ketones Trace (Negative) 10/30/24 09:50 Urine Blood Non-haemolysed trace (Negative) 10/30/24 09:50 Urine Nitrate Negative (Negative) 10/30/24 09:50 Urine Bilirubin Negative (Negative) 10/30/24 09:50 Urine Urobilinogen 1.0 mg/dL (Negative) 10/30/24 09:50 Ur Leukocyte Esterase 2+ (Negative) A 10/30/24 09:50 Urine RBC 6-10 /hpf (0-2) 10/30/24 09:50 Urine WBC 21-50 /hpf (0-5) H 10/30/24 09:50 Ur Squamous Epith Cells 0-5 /hpf (0-5) 10/30/24 09:50 Amorphous Sediment Not Reportable 10/30/24 09:50 Urine Bacteria None seen /hpf (NONE) 10/30/24 09:50 Hyaline Casts 0.81 /lpf 10/30/24 09:50 Fluid Color Yellow 10/30/24 11:00 Fluid Appearance Cloudy 10/30/24 11:00 Fluid WBC 79 /uL 10/30/24 11:00 Fluid RBC 4.000 10^3/uL 10/30/24 11:00 Fld Polynuclear WBCs # 0.009 10/30/24 11:00 Fld Polynuclear WBCs % 11.400 % 10/30/24 11:00 Fl Mononucl WBCs #(Auto) 0.070 10/30/24 11:00 Fl Mononuclear % Auto 88.600 % 10/30/24 11:00 Fld Crystal Laterality Peritoneal fluid 10/30/24 11:00 Vitals Last Vital Signs Temp 98.4 F 11/02/24 07:41 Pulse 69 11/02/24 07:41 Resp 14 11/02/24 07:41 BP 125/65 11/02/24 07:41 Pulse Ox 95 11/02/24 07:41 O2 Del Method Room Air 11/02/24 07:41 Discharge Plan Discharge Patient Disposition: Home Condition: Stable Prescriptions: New ciprofloxacin HCl 500 mg tablet 500 mg PO BID Qty: 6 0RF Continued hydroxyzine HCl 50 mg tablet 50 mg PO QID PRN (Reason: for sleep or panic attack) Qty: 120 2RF paroxetine HCl 40 mg tablet 40 mg PO DAILY Qty: 30 11RF Xifaxan 550 mg Tablet 550 mg PO BID furosemide [Lasix] 40 mg tablet 40 mg PO DAILY 30 Days Qty: 30 0RF Changed potassium chloride [Klor-Con M20] 20 mEq tablet,ER particles/crystals 20 meq PO DAILY 30 Days Qty: 60 0RF Discontinued cephalexin 500 mg capsule 500 mg PO TID 7 Days Qty: 21 0RF Discharge Order = DC NOW: Discharge Order (Routine); Ordered 11/02/24 Ordered By: Nicci Goodman Referrals: [facility] Setup number [Other] Referral Note: Call this number to get S setup. They will ask questions. Based off your answers, you are given points. You have to have a certain number of points to qualify for services. Steven Francis MD [Referring, Internal Medicine] - 4-7 days Referral Note: We have notified your physician's clinic of the need for a follow-up appointment to be scheduled. If you have not heard from them within the next 2 business days, please call them directly. SENT REFERRAL Estrella Gerard FNP [Primary Care Provider, Family Practice] - 11/08/24 2:20 pm Willis Lawson MD [Referring, Urology] - 1-3 days Referral Note: We have notified your physician's clinic of the need for a follow-up appointment to be scheduled. If you have not heard from them within the next 2 business days, please call them directly. Discharge Diet: GI Soft Discharge Activity: Resume usual activity Patient Instructions: Ciprofloxacin (By mouth) (Cipro), Opioid Safety, Patient Portal & Christoph Instructions, Pyelonephritis Discharge Attestations Time Spent in Discharge Care*: less than 30 min Quality Metrics Clinical Quality Measures [ No reported AMI, CVA or VTE this stay] Coding Level of Care Code Acute Code for Chg Fwd Diagnoses Abdominal ascites R18.8 Hepatitis C B19.20 Cirrhosis of liver without ascites, unspecified hepatic cirrhosis type K74.60 Ascites presence: without ascites Hepatic cirrhosis type: unspecified hepatic cirrhosis S/P abdominal paracentesis Z98.890 Bilateral flank pain R10.9 SBP (spontaneous bacterial peritonitis) K65.2
[2024-11-02 11:02] VITALS: BP 125/65; PULSE 69; RESP 16; TEMP 36.9; O2SAT 95
--- NOTE | 2024-11-02 11:03 | PC.NURSE ---
Pt's IV was burning at site when administering medications this morning. Attempted to start another IV to give albumin per dr orders but pt refused after first unsuccessful attempt. Dr notified and okayed discharge without albumin given. Education given and all questions answered. Pt left via wheelchair with all belongings in hand.
== END 2024-11-02 10:40 | disposition home or self-care (01) ==
LOC: ER 13:51 → MEDSURG 21:32 → ER IP 10-31 06:48
PROVIDERS: Admitting Provider Internal Medicine; Emergency Provider Family Medicine; PCP Nurse Practitioner Family; Visit Provider Internal Medicine
DX: K74.60 Unspecified cirrhosis of liver (principal); R18.8 Other ascites; B19.20 Unspecified viral hepatitis C without hepatic coma; Z98.890 Other specified postprocedural states; K65.2 Spontaneous bacterial peritonitis; K21.9 Gastro-esophageal reflux disease without esophagitis; F15.91 Other stimulant use, unspecified, in remission; N39.0 Urinary tract infection, site not specified; Z91.199 Patient's noncompliance with other medical treatment and regimen due to unspecified reason; Z79.899 Other long term (current) drug therapy; F41.9 Anxiety disorder, unspecified; F43.12 Post-traumatic stress disorder, chronic; F33.1 Major depressive disorder, recurrent, moderate; Z87.442 Personal history of urinary calculi; K44.9 Diaphragmatic hernia without obstruction or gangrene; K90.0 Celiac disease
CPT/HCPCS: 36415; 49083; 74176; 76705; 80053; 80503; 81001; 82140; 83605; 83690; 83735; 84145; 85025; 85610; 85651; 85730; 86140; 87040; 87070; 87075; 87086; 87205; 89050; 96365; 96372; 96375; 96376; 99285; 99291; G0378; J0696; J1644; J2270; J2543; J7030; J9999; P9046

== ENCOUNTER 2024-11-07 11:23 | Day surgery (SDC) | payer BC, MEDICAID, SELFPAY ==
[2024-05-17 15:33] VITALS: BP 150/84; BMI 31.3
--- NOTE | 2024-11-07 11:26 | US_ITS ---
WS: [email or web address] ULTRASOUND-GUIDED PARACENTESIS CLINICAL INFORMATION: DECOMPENSATED HCV CIRRHOSIS Procedure Informed consent: The risks, benefits, and alternatives of the procedure were discussed with the patient. Verbal and written consent was obtained. Timeout: A timeout was performed to confirm the correct patient, procedure, and site. Preparation: A suitable skin site was identified. The patient was prepped and draped in usual sterile fashion. Lidocaine 1% was used for local anesthesia. Catheter: 4 Tuval[place] One-step Yueh catheter. Side: LEFT lower quadrant. Fluid Volume: 8600 ml Color: Clear yellow DISPOSITION: Discarded safely. Complications: None. Patient disposition: Discharged from the department in stable condition. US/US paracentesis abd w [id number] IMPRESSION: Uncomplicated ultrasound-guided paracentesis. Removal of 8600 cc
[2024-11-07 11:54] VITALS: BP 163/70; PULSE 96; RESP 18; TEMP 36.2; O2SAT 98
[2024-11-07 12:58] LABS: Hematocrit 36.9 % (36-47); Hemoglobin 11.80 g/dL (11.27-16.99); Mean Corpuscular HGB Conc 32.0 g/dL (30-55); Mean Corpuscular Hemoglobin 28.1 pg (27-33); Mean Corpuscular Volume 87.9 fl (85-98); Nucleated Red Blood Cells % 0 %; Platelet Count 178 10^3/cmm (157-399); Red Blood Count 4.20 10^6/uL (3.85-5.65); White Blood Count 5.13 10^3/uL (3.29-11.43)
[2024-11-07] MEDS: ALBUMIN IV (13:11)
[2024-11-07 13:17] LABS: INR 1.17 (0.8-1.2); Prothrombin Time 15.70 SECONDS (12.1-14.9)
[2024-11-07 13:28] LABS: Alanine Aminotransferase 17 U/L (0-33); Albumin Level 3.0 g/dL (3.5-5.2); Alkaline Phosphatase 129 U/L (35-105); Anion Gap 13.0 (5-19); Aspartate Amino Transferase 34 U/L (0-32); Blood Urea Nitrogen 10 mg/dL (6-20); Calcium 8.3 mg/dL (8.5-10.5); Carbon Dioxide 28 mmol/L (22-29); Chloride 101 mmol/L (98-107); Globulin 3.2 g/dL (1.3-4.6); Glucose 128 mg/dL (65-115); Osmolality Calculated 289 mOsm/kg (285-295); Potassium 3.0 mmol/L (3.5-5.1); Sodium 139 mmol/L (136-145); Total Protein 6.2 g/dL (6.6-8.7)
[2024-11-07 13:42] VITALS: BP 146/71; PULSE 77; RESP 18; O2SAT 97
[2024-11-07 13:52] LABS: Cyto Order Verification No Order
[2024-11-07 13:59] LABS: Mononuclear #, Pertinoneal Fl 0.051 10^3/uL; Mononuclear %, Pertinoneal Fl 86.500 %; Polynuclear # Cells, Perit 0.008 10^3/uL; Polynuclear % Cells,Perit 13.500 %; RBC Pertioneal Fluid 0 10^3/uL; WBC Peritoneal Fluid 59 /uL
[2024-11-07 14:02] VITALS: BMI 33.6
[2024-11-07 14:27] LABS: Appearance, Peritoneal Fluid Clear (Clear); Color, Peritoneal Fluid Pale Yellow (Pale Yellow)
== END 2024-11-07 13:47 | disposition home or self-care (01) ==
LOC: GILAB 11:24
PROVIDERS: Radiology Neuroradiology; PCP Nurse Practitioner Family; Visit Provider Internal Medicine Gastroenterology
PROC: (CPT 49082; principal; 2024-11-07 12:00)
DX: R18.8 Other ascites (principal); K74.69 Other cirrhosis of liver
CPT/HCPCS: 36415; 49083; 80053; 80503; 85025; 85610; 87070; 87075; 87205; 89050; 96365; P9047

== ENCOUNTER 2024-11-14 11:35 | Day surgery (SDC) | payer BC, MEDICAID, SELFPAY ==
[2024-05-17 15:33] VITALS: BP 150/84; BMI 31.3
[2024-11-14 11:47] VITALS: BMI 33.9
[2024-11-14 11:48] VITALS: BP 143/75; PULSE 76; RESP 16; TEMP 36.7; O2SAT 95
--- NOTE | 2024-11-14 11:51 | US_ITS ---
WS: [email or web address] ULTRASOUND-GUIDED THERAPEUTIC AND DIAGNOSTIC PARACENTESIS Procedure, risks, and complications have been explained to the patient. Consent is obtained. Utilizing aseptic technique and 1% buffered lidocaine, a small dermatome was made through which a 5 Scottish Yueh catheter was inserted. Approximately 8000 ml of clear peritoneal fluid was obtained without difficulty. No complications encountered. US/US paracentesis abd w [id number] IMPRESSION: Uncomplicated paracentesis yielding 8000 ml of peritoneal fluid.
[2024-11-14 12:41] LABS: Cyto Order Verification No Order
[2024-11-14 12:45] LABS: Appearance, Peritoneal Fluid Cloudy (Clear); Color, Peritoneal Fluid Yellow (Pale Yellow)
[2024-11-14 12:46] LABS: Mononuclear #, Pertinoneal Fl 0.059 10^3/uL; Mononuclear %, Pertinoneal Fl 88.000 %; Pathology Referral Yes; Polynuclear # Cells, Perit 0.008 10^3/uL; Polynuclear % Cells,Perit 12.000 %; RBC Pertioneal Fluid 1 10^3/uL; WBC Peritoneal Fluid 67 /uL
[2024-11-14] MEDS: ALBUMIN IV (13:21)
[2024-11-14 13:27] LABS: Hematocrit 35.0 % (36-47); Hemoglobin 11.10 g/dL (11.27-16.99); Mean Corpuscular HGB Conc 31.7 g/dL (30-55); Mean Corpuscular Hemoglobin 27.3 pg (27-33); Mean Corpuscular Volume 86.0 fl (85-98); Nucleated Red Blood Cells % 0 %; Platelet Count 148 10^3/cmm (157-399); Red Blood Count 4.07 10^6/uL (3.85-5.65); White Blood Count 5.15 10^3/uL (3.29-11.43)
[2024-11-14 13:40] LABS: INR 1.22 (0.8-1.2); Prothrombin Time 16.20 SECONDS (12.1-14.9)
[2024-11-14 13:43] LABS: Alanine Aminotransferase 15 U/L (0-33); Albumin Level 2.8 g/dL (3.5-5.2); Alkaline Phosphatase 129 U/L (35-105); Anion Gap 10.5 (5-19); Aspartate Amino Transferase 29 U/L (0-32); Blood Urea Nitrogen 9 mg/dL (6-20); Calcium 8.2 mg/dL (8.5-10.5); Carbon Dioxide 29 mmol/L (22-29); Chloride 100 mmol/L (98-107); Creatinine Clr Calc Pharmacy 87.2238; Globulin 2.9 g/dL (1.3-4.6); Glucose 98 mg/dL (65-115); Osmolality Calculated 281 mOsm/kg (285-295); Potassium 3.5 mmol/L (3.5-5.1); Sodium 136 mmol/L (136-145); Total Protein 5.7 g/dL (6.6-8.7)
== END 2024-11-14 13:51 | disposition home or self-care (01) ==
LOC: GILAB 11:36
PROVIDERS: Radiology Diagnostic Radiology; PCP Nurse Practitioner Family; Visit Provider Internal Medicine Gastroenterology
PROC: (CPT 49082; principal; 2024-11-14 12:00)
DX: R18.8 Other ascites (principal)
CPT/HCPCS: 36415; 49083; 80053; 80503; 85025; 85610; 87070; 87075; 87205; 89050; 96365; P9047

== ENCOUNTER 2024-11-21 10:56 | Day surgery (SDC) | payer BC, MEDICAID, SELFPAY ==
[2024-05-17 15:33] VITALS: BP 150/84; BMI 31.3
--- NOTE | 2024-11-21 11:26 | US_ITS ---
WS: [email or web address] ULTRASOUND-GUIDED PARACENTESIS CLINICAL INFORMATION: ascites, cirrhosis COMPARISON: None. Procedure Informed consent: The risks, benefits, and alternatives of the procedure were discussed with the patient. Verbal and written consent was obtained. Timeout: A timeout was performed to confirm the correct patient, procedure, and site. Preparation: A suitable skin site was identified. The patient was prepped and draped in usual sterile fashion. Lidocaine 1% was used for local anesthesia. Catheter: 4 Kyrgyz One-step Yueh catheter. Side: RIGHT lower quadrant. Fluid Volume: 5500 ml Color: Clear yellow DISPOSITION: Discarded safely. Complications: None. Patient disposition: Discharged from the department in stable condition. US/US paracentesis abd w [id number] IMPRESSION: Uncomplicated ultrasound-guided paracentesis. Removal of 5500cc
[2024-11-21 12:25] LABS: Hematocrit 31.9 % (36-47); Hemoglobin 10.20 g/dL (11.27-16.99); Mean Corpuscular HGB Conc 32.0 g/dL (30-55); Mean Corpuscular Hemoglobin 27.5 pg (27-33); Mean Corpuscular Volume 86.0 fl (85-98); Nucleated Red Blood Cells % 0 %; Platelet Count 113 10^3/cmm (157-399); Red Blood Count 3.71 10^6/uL (3.85-5.65); White Blood Count 4.10 10^3/uL (3.29-11.43)
[2024-11-21 12:28] LABS: Cyto Order Verification No Order
[2024-11-21 12:29] LABS: Appearance, Peritoneal Fluid Cloudy (Clear); Color, Peritoneal Fluid Pale Yellow (Pale Yellow); Pathology Referral Yes
[2024-11-21 12:40] LABS: Mononuclear #, Pertinoneal Fl 0.059 10^3/uL; Mononuclear %, Pertinoneal Fl 93.700 %; Polynuclear # Cells, Perit 0.004 10^3/uL; Polynuclear % Cells,Perit 6.300 %; RBC Pertioneal Fluid 0 10^3/uL; WBC Peritoneal Fluid 63 /uL
[2024-11-21 12:44] LABS: INR 1.31 (0.8-1.2); Prothrombin Time 17.20 SECONDS (12.1-14.9)
[2024-11-21 12:49] LABS: Alanine Aminotransferase 16 U/L (0-33); Albumin Level 2.8 g/dL (3.5-5.2); Alkaline Phosphatase 123 U/L (35-105); Anion Gap 9.6 (5-19); Aspartate Amino Transferase 33 U/L (0-32); Blood Urea Nitrogen 10 mg/dL (6-20); Calcium 7.9 mg/dL (8.5-10.5); Carbon Dioxide 28 mmol/L (22-29); Chloride 103 mmol/L (98-107); Globulin 2.3 g/dL (1.3-4.6); Glucose 108 mg/dL (65-115); Osmolality Calculated 284 mOsm/kg (285-295); Potassium 3.6 mmol/L (3.5-5.1); Sodium 137 mmol/L (136-145); Total Protein 5.1 g/dL (6.6-8.7)
== END 2024-11-21 12:45 | disposition home or self-care (01) ==
LOC: GILAB 10:56
PROVIDERS: PCP Nurse Practitioner Family; Visit Provider Internal Medicine Gastroenterology
PROC: (CPT 49082; principal; 2024-11-21 12:00)
DX: R18.8 Other ascites (principal); K74.60 Unspecified cirrhosis of liver
CPT/HCPCS: 49083; 80053; 80503; 84157; 85025; 85610; 87070; 87075; 87205; 89050

== ENCOUNTER → 2024-11-28 11:26 | Day surgery (SDC) | payer BC, MEDICAID, SELFPAY ==
[2024-05-17 15:33] VITALS: BP 150/84; BMI 31.3
[2024-11-28 11:34] VITALS: BMI 33.3
[2024-11-28 11:35] VITALS: BP 147/86; PULSE 75; RESP 18; TEMP 36.4; O2SAT 96
--- NOTE | 2024-11-28 11:47 | US_ITS ---
WS: [email or web address] ULTRASOUND-GUIDED THERAPEUTIC AND DIAGNOSTIC PARACENTESIS Procedure, risks, and complications have been explained to the patient. Consent is obtained. Utilizing aseptic technique and 1% buffered lidocaine, a small dermatome was made through which a 5 Beninese Yueh catheter was inserted. Approximately 6750 ml of clear peritoneal fluid was obtained without difficulty. No complications encountered. US/US paracentesis abd w [id number] IMPRESSION: Uncomplicated paracentesis yielding 6750 ml of peritoneal fluid.
[2024-11-28 12:57] LABS: Cyto Order Verification No Order
[2024-11-28 12:58] LABS: Appearance, Peritoneal Fluid Hazy (Clear); Color, Peritoneal Fluid Pale Yellow (Pale Yellow)
[2024-11-28 13:08] LABS: Mononuclear #, Pertinoneal Fl 0.041 10^3/uL; Mononuclear %, Pertinoneal Fl 83.700 %; Polynuclear # Cells, Perit 0.008 10^3/uL; Polynuclear % Cells,Perit 16.300 %; RBC Pertioneal Fluid 0 10^3/uL; WBC Peritoneal Fluid 49 /uL
--- NOTE | 2024-11-28 13:17 | PC.NURSE ---
IV placed by Marielos Palencia with ultrasound.
[2024-11-28 13:19] LABS: Hematocrit 35.8 % (36-47); Hemoglobin 11.40 g/dL (11.27-16.99); Mean Corpuscular HGB Conc 31.8 g/dL (30-55); Mean Corpuscular Hemoglobin 27.1 pg (27-33); Mean Corpuscular Volume 85.2 fl (85-98); Nucleated Red Blood Cells % 0 %; Platelet Count 112 10^3/cmm (157-399); Red Blood Count 4.20 10^6/uL (3.85-5.65); White Blood Count 4.82 10^3/uL (3.29-11.43)
[2024-11-28] MEDS: albumin 50 G/200 ML BAG 60 G IV (13:35)
[2024-11-28 13:39] LABS: Pathology Referral Yes
[2024-11-28 14:12] LABS: Alanine Aminotransferase 12 U/L (0-33); Albumin Level 2.4 g/dL (3.5-5.2); Alkaline Phosphatase 139 U/L (35-105); Blood Urea Nitrogen 10 mg/dL (6-20); Calcium 8.2 mg/dL (8.5-10.5); Carbon Dioxide 22 mmol/L (22-29); Chloride 104 mmol/L (98-107); Creatinine Clr Calc Pharmacy 98.6681; Globulin 3.1 g/dL (1.3-4.6); Glucose 102 mg/dL (65-115); Osmolality Calculated 275 mOsm/kg (285-295); Sodium 133 mmol/L (136-145); Total Protein 5.5 g/dL (6.6-8.7)
[2024-11-28 14:17] LABS: Anion Gap 12.0 (5-19); Aspartate Amino Transferase 31 U/L (0-32); Potassium 5.0 mmol/L (3.5-5.1)
== END ==
PROVIDERS: Radiology Diagnostic Radiology; PCP Nurse Practitioner Family; Visit Provider Internal Medicine Gastroenterology
PROC: (CPT 49082; principal; 2024-11-28 12:00)
DX: K74.69 Other cirrhosis of liver (principal); R18.8 Other ascites; G93.40 Encephalopathy, unspecified
CPT/HCPCS: 36415; 49083; 80053; 80503; 85025; 87070; 87075; 87205; 89050; P9046

== ENCOUNTER 2024-12-05 11:38 | Day surgery (SDC) | payer BC, MEDICAID, SELFPAY ==
[2024-05-17 15:33] VITALS: BP 150/84; BMI 31.3
--- NOTE | 2024-12-05 11:54 | US_ITS ---
WS: [email or web address] ULTRASOUND-GUIDED PARACENTESIS CLINICAL INFORMATION: cirrhosis COMPARISON: None. Procedure Informed consent: The risks, benefits, and alternatives of the procedure were discussed with the patient. Verbal and written consent was obtained. Timeout: A timeout was performed to confirm the correct patient, procedure, and site. Preparation: A suitable skin site was identified. The patient was prepped and draped in usual sterile fashion. Lidocaine 1% was used for local anesthesia. Catheter: 4 Burundian One-step Yueh catheter. Side: LEFT lower quadrant. Fluid Volume: 7000 ml Color: Clear yellow DISPOSITION: Discarded safely. Complications: None. Patient disposition: Discharged from the department in stable condition. US/US paracentesis abd w [id number] IMPRESSION: Uncomplicated ultrasound-guided paracentesis. Removal of 7000 cc
[2024-12-05 12:11] LABS: Hematocrit 36.9 % (36-47); Hemoglobin 11.60 g/dL (11.27-16.99); Mean Corpuscular HGB Conc 31.4 g/dL (30-55); Mean Corpuscular Hemoglobin 27.2 pg (27-33); Mean Corpuscular Volume 86.6 fl (85-98); Nucleated Red Blood Cells % 0 %; Platelet Count 132 10^3/cmm (157-399); Red Blood Count 4.26 10^6/uL (3.85-5.65); White Blood Count 4.35 10^3/uL (3.29-11.43)
[2024-12-05 12:22] VITALS: BP 149/75; PULSE 73; RESP 18; TEMP 36.5; O2SAT 96
[2024-12-05 12:31] LABS: Alanine Aminotransferase 12 U/L (0-33); Albumin Level 3.2 g/dL (3.5-5.2); Alkaline Phosphatase 149 U/L (35-105); Anion Gap 9.6 (5-19); Aspartate Amino Transferase 27 U/L (0-32); Blood Urea Nitrogen 15 mg/dL (6-20); Calcium 8.6 mg/dL (8.5-10.5); Carbon Dioxide 30 mmol/L (22-29); Chloride 101 mmol/L (98-107); Globulin 3.2 g/dL (1.3-4.6); Glucose 107 mg/dL (65-115); Osmolality Calculated 285 mOsm/kg (285-295); Potassium 3.6 mmol/L (3.5-5.1); Sodium 137 mmol/L (136-145); Total Protein 6.4 g/dL (6.6-8.7)
[2024-12-05 12:41] LABS: INR 1.11 (0.8-1.2); Prothrombin Time 15.10 SECONDS (12.1-14.9)
[2024-12-05 13:24] LABS: Appearance, Peritoneal Fluid Cloudy (Clear); Color, Peritoneal Fluid Pale Yellow (Pale Yellow); Cyto Order Verification No Order; Pathology Referral Yes
[2024-12-05 13:35] LABS: Mononuclear #, Pertinoneal Fl 0.069 10^3/uL; Mononuclear %, Pertinoneal Fl 84.200 %; Polynuclear # Cells, Perit 0.013 10^3/uL; Polynuclear % Cells,Perit 15.800 %; RBC Pertioneal Fluid 0 10^3/uL; WBC Peritoneal Fluid 82 /uL
[2024-12-05] MEDS: albumin 50 G/200 ML BAG 60 G IV (13:38)
== END 2024-12-05 13:52 | disposition home or self-care (01) ==
LOC: GILAB 11:40
PROVIDERS: Radiology Neuroradiology; PCP Nurse Practitioner Family; Visit Provider Internal Medicine Gastroenterology
PROC: (CPT 49082; principal; 2024-12-05 12:00)
DX: K74.60 Unspecified cirrhosis of liver (principal); D76.3 Other histiocytosis syndromes
CPT/HCPCS: 49083; 80053; 80503; 85025; 85610; 87070; 87075; 87205; 89050; P9046

== ENCOUNTER 2024-12-12 11:32 | Day surgery (SDC) | payer BC, MEDICAID, SELFPAY ==
[2024-05-17 15:33] VITALS: BP 150/84; BMI 31.3
--- NOTE | 2024-12-12 11:36 | US_ITS ---
WS: [email or web address] ULTRASOUND-GUIDED THERAPEUTIC AND DIAGNOSTIC PARACENTESIS Procedure, risks, and complications have been explained to the patient. Consent is obtained. Utilizing aseptic technique and 1% buffered lidocaine, a small dermatome was made through which a 5 Welsh Yueh catheter was inserted. Approximately 6850 ml of clear peritoneal fluid was obtained without difficulty. No complications encountered. US/US paracentesis abd w [id number] IMPRESSION: Uncomplicated paracentesis yielding 6850 ml of peritoneal fluid.
[2024-12-12 11:43] VITALS: BP 150/80; PULSE 70; RESP 16; TEMP 36.3; O2SAT 98; BMI 33.6
[2024-12-12 12:16] LABS: Hematocrit 39.6 % (36-47); Hemoglobin 12.30 g/dL (11.27-16.99); Mean Corpuscular HGB Conc 31.1 g/dL (30-55); Mean Corpuscular Hemoglobin 27.2 pg (27-33); Mean Corpuscular Volume 87.6 fl (85-98); Nucleated Red Blood Cells % 0 %; Platelet Count 141 10^3/cmm (157-399); Red Blood Count 4.52 10^6/uL (3.85-5.65); White Blood Count 4.78 10^3/uL (3.29-11.43)
[2024-12-12 12:36] LABS: Alanine Aminotransferase 13 U/L (0-33); Albumin Level 3.2 g/dL (3.5-5.2); Alkaline Phosphatase 152 U/L (35-105); Anion Gap 14.4 (5-19); Aspartate Amino Transferase 25 U/L (0-32); Blood Urea Nitrogen 11 mg/dL (6-20); Calcium 8.6 mg/dL (8.5-10.5); Carbon Dioxide 27 mmol/L (22-29); Chloride 98 mmol/L (98-107); Creatinine Clr Calc Pharmacy 99.1765; Globulin 3.4 g/dL (1.3-4.6); Glucose 108 mg/dL (65-115); Osmolality Calculated 282 mOsm/kg (285-295); Potassium 3.4 mmol/L (3.5-5.1); Sodium 136 mmol/L (136-145); Total Protein 6.6 g/dL (6.6-8.7)
[2024-12-12 12:37] LABS: INR 1.12 (0.8-1.2); Prothrombin Time 15.20 SECONDS (12.1-14.9)
[2024-12-12 13:17] LABS: Appearance, Peritoneal Fluid Clear (Clear); Color, Peritoneal Fluid Pale Yellow (Pale Yellow); Cyto Order Verification No Order; Pathology Referral Yes
[2024-12-12 13:22] LABS: Mononuclear #, Pertinoneal Fl 0.053 10^3/uL; Mononuclear %, Pertinoneal Fl 80.300 %; Polynuclear # Cells, Perit 0.013 10^3/uL; Polynuclear % Cells,Perit 19.700 %; RBC Pertioneal Fluid 0 10^3/uL; WBC Peritoneal Fluid 66 /uL
== END 2024-12-12 13:00 | disposition home or self-care (01) ==
LOC: GILAB 11:33
PROVIDERS: Radiology Diagnostic Radiology; PCP Nurse Practitioner Family; Visit Provider Internal Medicine Gastroenterology
PROC: (CPT 49082; principal; 2024-12-12 12:00)
DX: R18.8 Other ascites (principal); K74.69 Other cirrhosis of liver
CPT/HCPCS: 49083; 80053; 80503; 85025; 85610; 87070; 87075; 87205; 89050

== ENCOUNTER → 2024-12-19 11:45 | Day surgery (SDC) | payer BC, MEDICAID, SELFPAY ==
[2024-05-17 15:33] VITALS: BP 150/84; BMI 31.3
[2024-12-19 11:50] VITALS: BP 132/76; PULSE 79; RESP 16; TEMP 36.6; O2SAT 96
--- NOTE | 2024-12-19 11:57 | US_ITS ---
WS: [email or web address] ULTRASOUND-GUIDED PARACENTESIS CLINICAL INFORMATION: ascities COMPARISON: None. Procedure Informed consent: The risks, benefits, and alternatives of the procedure were discussed with the patient. Verbal and written consent was obtained. Timeout: A timeout was performed to confirm the correct patient, procedure, and site. Preparation: A suitable skin site was identified. The patient was prepped and draped in usual sterile fashion. Lidocaine 1% was used for local anesthesia. Catheter: 4 Urdu One-step Yueh catheter. Side: LEFT Lower quadrant. Fluid Volume: 6500 ml Color: clear yellow DISPOSITION: Discarded safely. Complications: None. Patient disposition: Discharged from the department in stable condition. US/US paracentesis abd w [id number] IMPRESSION: Uncomplicated ultrasound-guided paracentesis. Removal of 6500cc
[2024-12-19 12:21] LABS: Hematocrit 38.4 % (36-47); Hemoglobin 12.20 g/dL (11.27-16.99); Mean Corpuscular HGB Conc 31.8 g/dL (30-55); Mean Corpuscular Hemoglobin 27.3 pg (27-33); Mean Corpuscular Volume 85.9 fl (85-98); Nucleated Red Blood Cells % 0 %; Platelet Count 129 10^3/cmm (157-399); Red Blood Count 4.47 10^6/uL (3.85-5.65); White Blood Count 4.25 10^3/uL (3.29-11.43)
[2024-12-19 12:37] LABS: Cyto Order Verification No Order
[2024-12-19 12:41] LABS: Mononuclear #, Pertinoneal Fl 0.056 10^3/uL; Mononuclear %, Pertinoneal Fl 80.000 %; Polynuclear # Cells, Perit 0.014 10^3/uL; Polynuclear % Cells,Perit 20.000 %; RBC Pertioneal Fluid 0 10^3/uL; WBC Peritoneal Fluid 70 /uL
[2024-12-19 12:42] LABS: INR 1.08 (0.8-1.2); Prothrombin Time 14.70 SECONDS (12.1-14.9)
[2024-12-19 12:55] LABS: Alanine Aminotransferase 15 U/L (0-33); Albumin Level 3.0 g/dL (3.5-5.2); Alkaline Phosphatase 147 U/L (35-105); Anion Gap 12.5 (5-19); Aspartate Amino Transferase 30 U/L (0-32); Blood Urea Nitrogen 14 mg/dL (6-20); Calcium 8.6 mg/dL (8.5-10.5); Carbon Dioxide 27 mmol/L (22-29); Chloride 101 mmol/L (98-107); Globulin 3.3 g/dL (1.3-4.6); Glucose 130 mg/dL (65-115); Osmolality Calculated 286 mOsm/kg (285-295); Potassium 3.5 mmol/L (3.5-5.1); Sodium 137 mmol/L (136-145); Total Protein 6.3 g/dL (6.6-8.7)
[2024-12-19] MEDS: ALBUMIN 60 G IV (13:24)
[2024-12-19 13:40] VITALS: BP 124/57; PULSE 73; RESP 16; TEMP 36.6; O2SAT 96
[2024-12-19 13:49] LABS: Appearance, Peritoneal Fluid Hazy (Clear); Color, Peritoneal Fluid Yellow (Pale Yellow)
== END ==
LOC: GILAB 11:45
PROVIDERS: Radiology Neuroradiology; PCP Nurse Practitioner Family; Visit Provider Internal Medicine Gastroenterology
PROC: (CPT 49082; principal; 2024-12-19 12:00)
DX: R18.8 Other ascites (principal)
CPT/HCPCS: 49083; 80053; 80503; 85025; 85610; 87070; 87075; 87205; 89050; P9046

== ENCOUNTER 2024-12-23 16:04 | Inpatient (IN) | payer BC, SELFPAY ==
[2024-05-17 15:33] VITALS: BP 150/84; BMI 31.3
--- OUTSIDE RECORDS SUMMARY | 2024-12-23 16:08 | XMS_ITS | Clinical Summary ---
Author Organization [facility] Address [address] [place] [address] Phone Care Team Providers Care Third Miller Name Role Phone Unavailable Primary Care Provider [...] (2 - Td or Tdap) 05/18/[address] [place] [address] [address] NETWORK
--- OUTSIDE RECORDS SUMMARY | 2024-12-23 16:08 | XMS_ITS | Encounter Summary ---
Author Organization [facility] Address [address] [place] [address] Care Team Providers Care Nuisance Wildlife Specialist Name Role Phone Estrella Gerard Primary Care Provider [phone] Encounter Details Date Type Department Care Team ([facility] Contact Info) Description 10/16/2024 Results Follow-Up [facility] Emergency Medicine [address] [place] [address] Shireen Mendez, RN URINE CULTURE [...] as of this encounter Plan of Treatment Upcoming Encounters Date Type Department Care Team ([facility] Contact Info) Description 03/16/2025 1:20 PM NUT SHELLER Office Visit [facility] Cancer and Hematology [place] [address] [facility] [address] [place] [address] Anup Arriaga MD [address] [facility] [address] [place] [address] documented as of this encounter Visit Diagnoses Not on filedocumented in this encounter Care Teams Nuisance Wildlife Specialist Relationship Specialty Start Date End Date Estrella Gerard FNP [address] [place] [id number] PCP - General Nurse Practitioner Family 05/18/21 documented as of this encounter
--- OUTSIDE RECORDS SUMMARY | 2024-12-23 16:08 | XMS_ITS | Clinical Summary ---
Author Organization [facility] Address [address] [place] [address] Phone Care Team Providers Care Candy Maker Helper Name Role Phone Moustapha Estrella Kingsley BENSON Primary Care Provider [phone] Allergies Active Allergy Reactions Criticality Noted Date [...] Encounters Date Type Department Care Team Description 12/19/2024 External Device Data [facility] ABSTRACTION Provider, Abstract 12/05/2024 External Device Data [facility] ABSTRACTION Provider, Abstract 11/14/2024 External Device Data [facility] ABSTRACTION Provider, Abstract 11/14/2024 External Device Data [facility] ABSTRACTION Provider, Abstract 11/13/2024 [facility] [place] [address] Nicci Goodman MD Other ascites (Primary Dx) 11/08/2024 External Device Data [facility] ABSTRACTION Provider, Abstract 11/02/2024 Telephone [facility] Gastroenterology[address] [place] [address] Hellen Merino NP Advice Only 10/18/2024 External Device Data [facility] ABSTRACTION Provider, Abstract 10/18/2024 External Device Data [facility] ABSTRACTION Provider, Abstract 10/18/2024 External Device Data [facility] ABSTRACTION Provider, Abstract 10/18/2024 External Device Data [facility] ABSTRACTION Provider, Abstract 10/17/2024 External Device Data [facility] ABSTRACTION Provider, Abstract 10/16/2024 Results Follow-Up [facility] Emergency Medicine [address] [address] [facility] [address] [place] [address] Shireen Mendez RN URINE CULTURE 10/15/2024 2:15 AM CDT - 10/15/2024 12:55 PM CDT Emergency [facility] Emergency Medicine [address] [facility] [address] [place] [address] Kodi Roman DO Decompensated HCV cirrhosis (CMS/HCC) (Primary Dx); Other ascites; Bilateral lower extremity edema; Hepatic encephalopathy (CMS/HCC); Methamphetamine abuse (CMS/HCC); Abnormal urinalysis Discharge Disposition: Acute Care Hospital 10/15/2024 - 10/15/2024 11:59 PM CDT Hospital Encounter [facility] Emergency Medical Services [address] [address] Kodi Roman DO Ambulance, [facility] [place] [place] Discharge Disposition: [facility] hospital 10/15/2024 Travel 09/27/2024 Orders Only [address] [address] Zuleyka Regalado FNP Anemia, unspecified type (Primary Dx) 09/26/2024 External Device Data [facility] ABSTRACTION Provider, Abstract 09/22/2024 Results Follow-Up [address] [address] Zuleyka Regalado, HOSPICE DIRECTOR BEBE SCREEN W/REFLEX, TSH, COMPREHENSIVE METABOLIC PANEL, Additional followed-up results: 5 from Last 3 Months Immunizations Immunization Administration [...] 10/15/2024 2:00 AM CDT Plan of Treatment Upcoming Encounters Date Type Department Care Team (Late st Contact Info) Description 03/16/2025 1:20 PM CONSULTING SALES MANAGER Office Visit [facility] Cancer and Hematology [place] [address] [facility] [address] [place] [address] Anup Arriaga MD [address] [facility] [address] [place] [phone] Health Maintenance Due Date Last Done Comments [...] of 2) 2017 INFLUENZA VACCINE (#1) 2024 02/16/2024 DTAP/TDAP/TD VACCINES (3 - Td or Tdap) 05/18/2030, 05/18/2020 COLORECTAL SCREENING 09/28/2033 09/29/2023, 09/29/19 24 [...] WITH DIFFERENTIAL Stat 10/15/2024 2:45 AM CDT COLONOSCOPY REPORT 09/29/2023 2: 57 PM CDT from Last 3 Months or Most Recently Relevant to Health Maintenance Results * TELEMETRY REPORT (10/16/2024 10:15 AM CDT) us Provider Scanning ECG ORDERABLES Final Result * (ABNORMAL) URINALYSIS MICROSCOPY ONLY (10/15/2024 3:35 AM CDT) WBC UA >100(A) 0 - 2 /hpf 10/15/2024 3:49 AM CDT [facility] RBC UA 3-5(A) 0 - 2 /hpf 10/15/2024 3:49 AM CDT [facility] BACTERIA UA 2+(A) Negative /hpf 10/15/2024 3:49 AM CDT [facility] EPITHELIAL CELLS, URINE 6-10(A) 0 - 5 /hpf 10/15/2024 3:49 AM CDT [facility] Urine URINE SPECIMEN OBTAINED BY CLEAN CATCH PROCEDURE / Unknown Collection / Unknown 10/15/2024 3:35 AM CDT 10/15/2024 3:39 AM CDT us Kodi Y Jessie DO URINE ORDERABLES Final Result [facility] CLIA # [id number] [address] [place] [address] * (ABNORMAL) DRUG SCREEN, URINE (10/15/2024 3:35 AM CDT) CANNABINOIDS QUAL, URINE Negative Negative 10/15/2024 3:53 AM CDT [facility] PCP QUAL, URINE Negative Negative 3:53 AM CDT [facility] COCAINE QUAL URINE Negative Negative 2024 3:53 AM CDT [facility] METHAMPHETAMINE QUAL, URINE Presumptive Positive(A) Negative 10/15/2024 3:53 AM CDT [facility] OPIATE QUAL, URINE Negative Negative 2024 3:53 AM CDT [facility] AMPHETAMINE QUAL, URINE Presumptive Positive(A) Negative 10/15/2024 3:53 AM CDT [facility] BENZODIAZEPINE QUAL, URINE Negative Negative 10/15/2024 3:53 AM CDT [facility] TRICYCLICS QUAL, URINE Negative Negative 10/15/2024 3:53 AM CDT [facility] METHADONE QUAL, URINE Negative Negative 10/15/2024 3:53 AM CDT [facility] BARBITURATE QUAL, URINE Negative Negative 10/15/2024 3:53 AM CDT [facility] OXYCODONE QUAL, URINE Negative Negative 10/15/2024 3:53 AM T [facility] Urine URINE SPECIMEN OBTAINED BY CLEAN CATCH PROCEDURE / Unknown Collection / Unknown 10/15/2024 3:35 AM CDT 10/15/2024 3:39 AM CDT Narrative [facility] - 10/15/2024 3:53 AM CDT This test [...] Y Roman DO URINE ORDERABLES Final Result [facility] CLIA # [id number] [address] [place] [address] * (ABNORMAL) URINALYSIS WITH REFLEX MICROSCOPIC (10/15/2024 3:35 AM CDT) COLOR UA Yellow Pale to Dark Yellow 10/15/2024 3:49 AM T [facility] CLARITY UA Slightly Cloudy(A) Clear 10/15/2024 3:49 AM T [facility] SPECIFIC GRAVITY UA 1.015 1.003 - 1.035 10/15/2024 3:49 AM CDT [facility] PH UA 6.0 5.0 - 8.0 10/15/2024 3:49 AM CDT [facility] LEUKOCYTE ESTERASE UA 2+(A) Negative 10/15/2024 3:49 AM CDT [facility] NITRITE UA Negative Negative 10/15/2024 3:49 AM CDT [facility] PROTEIN UA 1+(A) Negative 10/15/2024 3:49 AM CDT [facility] GLUCOSE UA Negative Negative 10/15/2024 3:49 AM CDT [facility] KETONES UA Negative Negative 10/15/2024 3:49 AM CDT [facility] UROBILINOGEN UA 1.0 <2.0 mg/dL 3:49 AM CDT [facility] BILIRUBIN UA 1+(A) Negative 10/15/2024 3:49 AM CDT [facility] BLOOD UA 2+(A) Negative 10/15/2024 3:49 AM CDT [facility] Urine URINE SPECIMEN OBTAINED BY CLEAN CATCH PROCEDURE / Unknown Collection / Unknown 10/15/2024 3:35 AM CDT 10/15/2024 3:39 AM CDT us Kodi Y Roman DO URINE ORDERABLES Final Result [id number] [address] [place] [address] * (ABNORMAL) URINE CULTURE (10/15/2024 3:35 AM CDT) CULTURE ENTEROCOCCUS FAECALIS(A) FAISAL MCG/ML 10/17/2024 7:25 AM CDT [facility] Urine URINE SPECIMEN OBTAINED BY CLEAN [...] GENERAL ORDERABL ES Edited Result - Final [facility] # [id number] [address] [address] [place] [address] * XR ABDOMEN ACUTE SERIES 2+ VWS [...] ED Physician in the absence of a temporary data entry clerk: yes Rate: ECG rate: 68 ECG rate assessment: age appropriate Rhythm: Rhythm Origin: sinus Rhythm morphology: narrow Ectopy: Ectopy origin: PVCs [place]: QRS axis: Normal Intervals: prolonged QTC interval QRSTT: QRSTT changes: Yes Inferior (RCA) II, III, aVF: Q waves in III. Comments: Artifact noted us Kodi Roman DO ECG ORDERABLES Final Result * (ABNORMAL) CBC WITH DIFFERENTIAL (10/15/2024 2:45 AM CDT) WBC 5.5 4.0 - 10.0 K/uL 10/15/2024 2:57 AM [facility] RBC 4.44 3.93 - 5.22 M/uL 10/15/2024 2:57 AM [facility] HEMOGLOBIN 12.3 11.2 - 15.7 g/dL 10/15/2024 2:57 AM [facility] HEMATOCRIT 36.8 34.1 - 44.9 % 10/15/2024 2:57 AM [facility] MCV 82.9 79.4 - 94.8 fL 10/15/2024 2:57 AM [facility] MCH 27.7 25.6 - 32.2 pg 10/15/2024 2:57 AM [facility] MCHC 33.4 32.2 - 35.5 g/dL 10/15/2024 2:57 AM [facility] RDW 14.8(H) 11.0 - 14.5 % 10/15/2024 2:57 AM [facility] RDW-STDEV 44.7 36.9 - 56.9 fL 10/15/2024 2:57 AM [facility] PLATELETS 131(L) 163 - 337 K/uL 10/15/2024 2:57 AM [facility] MPV 11.4 10.0 - 14.8 fL 10/15/2024 2:57 AM [facility] NEUTROPHILS 62 34 - 71 % 10/15/2024 2:57 AM [facility] LYMPHOCYTES 17(L) 19 - 52 % 10/15/2024 2:57 AM [facility] MONOCYTES 17(H) 5 - 13 % 10/15/2024 2:57 AM [facility] EOSINOPHILS 3 1 - 6 % 10/15/2024 2:57 AM [facility] BASOPHILS 1 0 - 1 % 10/15/2024 2:57 AM [facility] IMMATURE GRANULOCYTES 1 % 10/15/2024 2:57 AM [facility] NEUTROPHIL ABSOLUTE 3.41 1.56 - 6.13 K/uL 10/15/2024 2:57 AM [facility] LYMPHOCYTE ABSOLUTE 0.93(L) 1.20 - 3.40 K/uL 10/15/2024 2:57 AM [facility] MONOCYTE ABSOLUTE 0.93(H) 0.24 - 0.36 K/uL 10/15/2024 2:57 AM [facility] EOSINOPHIL ABSOLUTE 0.15 0.04 - 0.36 K/uL 10/15/2024 2:57 AM [facility] BASOPHILS ABSOLUTE 0.05 0.01 - 0.08 K/uL 10/15/2024 2:57 AM [facility] IMMATURE GRANULOCYTES ABSOLUTE 0.03 K/uL 10/15/2024 2:57 AM [facility] Blood Collection / Unknown 10/15/2024 2:45 AM CDT 10/15/2024 2:51 AM CDT us Kodi Y Roman DO HEMATOLOGY ORDERABLES Final Resu lt [facility] CLIA # [id number] [address] [place] [address] * (ABNORMAL) BRAIN NATRIURETIC PEPTIDE, BNP OR PROBNP (10/15/2024 2:45 AM CDT) PROBNP, N TERMINAL 1,727(H) 0 - 125 pg/mL 10/15/2024 3:10 AM CDT [facility] Comment: INTERPRETIVE COMMENT based on diagnosis: [...] ORDERABLES Final Resul t Performing Organization Address City/[facility]/ZIP Co de Phone Number [facility] CLIA # [id number] [address] [place] [address] * MAGNESIUM LEVEL (10/15/2024 2:45 AM CDT) MAGNESIUM 2.0 1.6 - 2.6 mg/dL 10/15/2024 3:10 AM CDT [facility] Blood Collection / Unknown 10/15/2024 2:45 AM CDT 10/15/2024 2:51 AM CDT us Kodi Y Roman DO CHEMISTRY ORDERABLES Final Resul t [facility] CLIA # [id number] [address] [place] [address] * (ABNORMAL) LIPASE (10/15/2024 2:45 AM CDT) LIPASE 98(H) 13 - 60 U/L 10/15/2024 3:10 AM CDT [facility] Blood Collection / Unknown 10/15/2024 2:45 AM CDT 10/15/2024 2:51 AM CDT Kodi Florence Roman DO CHEMISTRY ORDERABLES Final Resul t Performing Organization Address [facility]/ZIP Co de Phone Number [facility] CLIA # [id number] [address] [place] [address] * (ABNORMAL) AMMONIA LEVEL (10/15/2024 2:45 AM CDT) AMMONIA 111.0(H) 11.0 - 51.0 umol/L 10/15/2024 3:14 AM CDT [facility] Blood, venous Collection / Unknown 10/15/2024 2:45 AM CDT 10/15/2024 2:51 AM CDT Kodi Roman DO CHEMISTRY ORDERABLES Final Resul t Performing Organization Address City/[facility] Co de Phone Number [facility] CLIA # [id number] [address] [place] [address] * ETHANOL LEVEL (10/15/2024 2:45 AM CDT) ETHANOL <10.10 <10.10 mg/dL 10/15/2024 3:10 AM CDT [facility] ETHANOL % <0.01 %w/v 10/15/2024 3:10 AM CDT [facility] Blood Collection / Unknown 10/15/2024 2:45 AM CDT 10/15/2024 2:51 AM CDT us Kodi Y Roman DO CHEMISTRY ORDERABLES Final Resul t [id number] [address] [place] [phone] * (ABNORMAL) COMPREHENSIVE METABOLIC PANEL (10/15/2024 2:45 AM CDT) SODIUM 134(L) 136 - 145 mmol/L 10/15/2024 3:10 AM [facility] POTASSIUM 4.1 3.5 - 5.1 mmol/L 10/15/2024 3:10 AM [facility] CHLORIDE 101 98 - 107 mmol/L 10/15/2024 3:10 AM [facility] CO2 23 22 - 29 mmol/L 10/15/2024 3:10 AM [facility] CALCIUM 8.8 8.6 - 10.0 mg/dL 10/15/2024 3:10 AM [facility] BUN 20 6 - 20 mg/dL 10/15/2024 3:10 AM [facility] CREATININE 1.51(H) 0.51 - 0.95 mg/dL 10/15/2024 3:10 AM [facility] GLUCOSE 97 74 - 99 mg/dL 10/15/2024 3:10 AM [facility] TOTAL PROTEIN 6.2(L) 6.6 - 8.7 g/dL 10/15/2024 3:10 AM [facility] ALBUMIN 2.8(L) 3.5 - 5.2 g/dL 10/15/2024 3:10 AM [facility] BILIRUBIN TOTAL 1.6(H) 0.0 - 1.2 mg/dL 10/15/2024 3:10 AM [facility] ALKALINE PHOSPHATASE 105(H) 35 - 104 U/L 10/15/2024 3:10 AM [facility] AST 61(H) 0 - 35 U/L 10/15/2024 3:10 AM [facility] ALT 27 0 - 35 U/L 10/15/2024 3:10 AM CDT [facility] GFR 40(L) >=60 mL/min/1.7 3 sq meter 10/15/2024 3:10 AM CDT [facility] Comment:eGFR calculated with 2020 CKD-EPI equation. Vegetarian diet, extremely high or low muscle mass, and may affect results. Cystatin C with Glomerular Filtration Rate is a suitable alternative for these patients. ANION GAP 10 5 - 20 mmol/L 10/15/2024 3:10 AM CDT [facility] Blood Collection / Unknown 10/15/2024 2:45 AM CDT 10/15/2024 2:51 AM CDT us Kodi Y Roman DO CHEMISTRY ORDERABLES Final Resul t [facility] CLIA # [id number] [address] [place] [address] * COLONOSCOPY REPORT (09/29/2023 2:57 PM CDT) Narrative Procedure Note Steven Francis MD - 09/29/2023 2:57 PM CDT [facility] GI Patient Name: Sandy Ernandez Procedure Date: [...] 2:39:39 PM Scope Out: 2:52:28 PM [address] [place], [place] Steven Francis MD GI PROCEDURE ORDERABLES F inal Result from Last 3 Months or Most Recently Relevant to Health Maintenance Insurance [facility] MEDICAID Advance Directives For more information, please contact: [phone] * Full Code (Latest Code Status on File) Date Activated Date Inactivated Comments 09/29/2023 1:00 PM 09/29/2023 5:24 PM Care Teams Candy Maker Helper Relationship Specialty Start Date End Date Estrella Gerard FNP [address] [place] [id number] PCP - General Nurse Practitioner Family 05/18/21
--- OUTSIDE RECORDS SUMMARY | 2024-12-23 16:09 | XMS_ITS | Encounter Summary ---
Author Organization [facility] Address [address] [place] [address] Care Team Providers Care Conditioning Coach Name Role Phone Estrella Gerard Primary Care Provider [phone] Encounter Details Date Type Department Care Team ([facility] Contact Info) Description 12/19/2024 External Device Data [facility] ABSTRACTION [...] Upcoming Encounters Date Type Department Care Team ([facility] Contact Info) Description 03/16/2025 1:20 PM CEMENT AND CONCRETE PLANT WORKER Office Visit [facility] [place] [address] [facility] [address] [place] [address] Anup Arriaga MD [address] [facility] [address] [place] [address] documented as of this encounter Visit Diagnoses Not on filedocumented in this encounter Care Teams Conditioning Coach Relationship Specialty Start Date End Date Estrella Gerard FNP [address] [place] [phone] PCP - General Nurse Practitioner Family 05/18/21 documented as of this encounter
--- NOTE | 2024-12-23 16:18 | ECG_ITS ---
[facility]: 2024-[facility]23 Pat Name: Sandy Ernandez Department: Room: Gender: Female Director Learning And Development: : 1965 Requested By: Dionne Gutiérrez Order Number: [id number] Dano MD: Suzanne Rico M.D. Measurements Intervals Sawyer Rate: 75 P: 61 WA: 111 QRS: 32 QRSD: 85 T: 44 QT: 441 QTc: 493 Interpretive Statements SINUS RHYTHM WITH SHORT WA INTERVAL Compared to ECG 10/15/2024 18:34:32 Short WA interval now present Supraventricular rhythm no longer present Electronically Signed On 12-23-2024 20:07:06 CDT by Suzanne Rico M.D. [email or web address]
--- NOTE | 2024-12-23 16:18 | XRR_ITS ---
PROCEDURE INFORMATION: Exam: XR Left Ankle Exam date and time: 12/23/2024 5:04 PM Age: 59 years old Clinical indication: Pain; Ankle and foot; Left; Additional info: Lt foot/ankle pain post fall; Weakness TECHNIQUE: Imaging protocol: Radiologic exam of the left ankle. Views: 3 or more views. COMPARISON: CR XR foot LT min 3V* [id number] 12/23/2024 5:04 PM FINDINGS: Bones/joints: On the oblique view, medial aspect of the talus, there is a questionable subtle lucency and cortical step-off. This was not apparent on the foot radiographs. Ankle mortise appears preserved. No joint effusion is apparent. Soft tissues: Fairly significant soft tissue swelling about the ankle both medially and laterally. XR/XR ankle LT min 3V* [id number] IMPRESSION: Significant generalized soft tissue swelling about the ankle with questionable cortical irregularity at the medial aspect of the talus. Recommend clinical correlation for point tenderness to exclude a subtle fracture at this site.
--- NOTE | 2024-12-23 16:18 | XRR_ITS ---
PROCEDURE INFORMATION: Exam: XR Left Foot Exam date and time: 12/23/2024 5:04 PM Age: 59 years old Clinical indication: Pain; Ankle and foot; Left; Additional info: Lt foot/ankle pain post fall; Weakness TECHNIQUE: Imaging protocol: Radiologic exam of the left foot. Views: 3 or more views. COMPARISON: CR (LOW EXM, ) 12/23/2024 5:04 PM FINDINGS: Bones/joints: No acute fracture or dislocation is identified. No joint effusion. There are some chronic appearing erosive changes around the margins of the interphalangeal joints, most notable at the 1st toe and 5th toe. Soft tissues: Soft tissues are grossly unremarkable. XR/XR foot LT min 3V* [id number] IMPRESSION: No acute findings.
--- NOTE | 2024-12-23 16:18 | CTR_ITS ---
PROCEDURE INFORMATION: Exam: CT Head Without Contrast Exam date and time: 12/23/2024 4:59 PM Age: 59 years old Clinical indication: Altered mental status/memory loss; Additional info: AMS TECHNIQUE: Imaging protocol: Computed tomography of the head without contrast. Radiation optimization: All CT scans at this facility use at least one of these dose optimization techniques: automated exposure control; mA and/or kV adjustment per patient size (includes targeted exams where dose is matched to clinical indication); or iterative reconstruction. COMPARISON: CT facial bones w con [id number] 05/29/2022 4:48 PM RADIATION DOSE METRICS: Total DLP (mGy-cm): 729.5 FINDINGS: Brain: No acute infarction, hemorrhage, mass, or extra-axial fluid collection is identified. No midline shift. Cerebral ventricles: No hydrocephalus. Paranasal sinuses: Paranasal sinuses are grossly clear. Mastoid air cells: Mastoid air cells are grossly clear. Bones: Calvarium appears intact. Soft tissues: Unremarkable. CT/CT head wo con* [id number] IMPRESSION: No acute intracranial abnormality.
--- NOTE | 2024-12-23 16:18 | XRR_ITS ---
PROCEDURE INFORMATION: Exam: XR Chest Exam date and time: 12/23/2024 5:09 PM Age: 59 years old Clinical indication: Other: Altered mental status; Additional info: AMS TECHNIQUE: Imaging protocol: Radiologic exam of the chest. Views: 1 view. COMPARISON: CR XR chest 1V portable [id number] 10/15/2024 4:10 PM FINDINGS: Lungs: Slight interstitial prominence greatest in the perihilar regions where there is also evidence of mild central vascular congestion. Pleural spaces: Slight blunting of the right costophrenic angle, possibly small right effusion. No pneumothorax is evident. Heart/Mediastinum: Stable cardiomediastinal contours. Bones/joints: No acute osseous findings. XR/XR chest 1V portable [id number] IMPRESSION: Possible interstitial edema and central vascular congestion with suspected small right effusion.
[2024-12-23 16:20] VITALS: BP 134/74; PULSE 86; RESP 20; O2SAT 99; BMI 31.6
[2024-12-23 16:28] LABS: Hematocrit 33.7 % (36-47); Hemoglobin 11.00 g/dL (11.27-16.99); Mean Corpuscular HGB Conc 32.6 g/dL (30-55); Mean Corpuscular Hemoglobin 27.6 pg (27-33); Mean Corpuscular Volume 84.7 fl (85-98); Nucleated Red Blood Cells % 0 %; Platelet Count 158 10^3/cmm (157-399); Red Blood Count 3.98 10^6/uL (3.85-5.65); White Blood Count 6.42 10^3/uL (3.29-11.43)
--- NOTE | 2024-12-23 16:28 | CTR_ITS ---
PROCEDURE INFORMATION: Exam: CT Cervical Spine Without Contrast Exam date and time: 12/23/2024 4:59 PM Age: 59 years old Clinical indication: Injury or trauma; Fall; Blunt trauma TECHNIQUE: Imaging protocol: Computed tomography of the cervical spine without contrast. Radiation optimization: All CT scans at this facility use at least one of these dose optimization techniques: automated exposure control; mA and/or kV adjustment per patient size (includes targeted exams where dose is matched to clinical indication); or iterative reconstruction. COMPARISON: CT neck w con* [id number] 05/29/2022 4:48 PM RADIATION DOSE METRICS: Total DLP (mGy-cm): 279.9 FINDINGS: Bones: No acute fracture of the cervical spine is identified. Grossly normal alignment and curvature. Multilevel degenerative change including anterior osteophytosis and dorsal spondylosis. Spondylosis is present from C3-C4 through C6-C7. There is mild spinal canal stenosis at C3-C4 and C4-C5. Multilevel facet arthropathy bilaterally. Lungs: Lung apices reveal trace right effusion. Soft tissues: Unremarkable. CT/CT cervical spin wo con* [id number] IMPRESSION: No cervical spine fracture is identified.
--- NOTE | 2024-12-23 16:29 | W.ED.GENADLT ---
HPI - General Adult General: Chief complaint: General Medical Stated complaint: Confused tick bite Falling hurting everywhere Time Seen by Provider: 12/23/24 16:10 Source: patient Mode of arrival: ambulatory Limitations: no limitations History of Present Illness: 59-year-old female has a history of cirrhosis here with family member states that she has been had some increased confusion along with multiple falls. Patient here will scream at times she answers most my questions appropriately states she hurts all over. States her neck hurts and her left ankle and foot hurt from falling. Patient states she is also had some redness to her bellybutton Associated symptoms: Reports chest pain; Deny nausea or rash Related Data Home Medications ?Medication ?Instructions ?Recorded ?Confirmed rifaximin 550 mg tablet (Xifaxan) 550 mg PO BID 12/10/23 12/19/24 desvenlafaxine succinate 25 mg 25 mg PO BID 11/28/24 12/19/24 tablet,extended release 24 hr (Pristiq) furosemide 40 mg tablet 40 mg PO DAILY 12/12/24 12/19/24 potassium chloride 20 mEq 20 meq PO DAILY 12/12/24 12/19/24 tablet,extended release(part/cryst) Previous Rx's ?Medication ?Instructions ?Recorded hydroxyzine HCl 50 mg tablet 50 mg PO QID PRN for sleep or 10/10/24 panic attack #120 tabs paroxetine HCl 40 mg tablet 40 mg PO DAILY #30 tabs 10/10/24 Allergies Allergy/AdvReac Type Severity Reaction Status Date / Time tramadol Allergy ADR-Nausea Verified 12/19/24 11:54 NSAIDS (Non-Steroidal AdvReac Unknown Verified 12/19/24 11:54 Anti-Inflamma Review of Systems Const: Denies: fever(s) Card: Reports: chest pain GI: Denies: nausea Musc: Reports: neck pain and extremity pain Skin/Breast: Denies: rash PFSH ED PFSH: Medical History (Updated 12/23/24 @ 17:54 by Dionne Gutiérrez MD) SBP (spontaneous bacterial peritonitis) History of nephrolithiasis Methamphetamine use disorder, severe, in sustained remission Celiac disease Cirrhosis Enterococcus UTI Thrombocytopenia S/P abdominal paracentesis Hepatitis C Family History Mother Hypertension Family/Other Hypertension Denies family history of Diabetes CAD (coronary artery disease) Cancer Social History Smoking and tobacco/nicotine status: never used tobacco/nicotine Second hand smoke exposure: Yes Alcohol intake: former Former alcohol use details: 25 years ago Substance/Drug Use: former Former substance use details: 5-6 years ago Adopted: No Caregiver/support person: No Lives independently: Yes Household members: friend(s) Housing: House Marital status: Marital status details: while in snf, never met him outside of snf Number of children: 2 Number of grandchildren: 5 Highest education level completed: Some College, No Degree service: No Current occupational status: disabled Current occupation: working on getting disability Current occupational exposures/hazards: No Pets and animals: Yes Pets & animals: dog(s) Leisure activites: other Leisure activities details: watch movies and play with grand kids Sexually active: No Do you think of yourself as: Straight/Heterosexual Current gender identity: Female Lauren/Adventist: Mormonism Special lauren needs: No Agree to transfusion: Yes Female Reproductive History: Para: 2 Physical Exam Const: COMMON NORMALS: patient oriented x3 HENMT: COMMON NORMALS: normocephalic and atraumatic HEAD & SCALP: normocephalic and atraumatic Eye: COMMON NORMALS: Equal, round and reactive pupils present and EOMs intact bilaterally PUPIL: Yes Equal, round and reactive pupils present Neck/C-Spine: COMMON NORMALS: full ROM and supple Chest: COMMONS NORMALS: normal inspection of the chest and normal palpation of entire chest wall Resp: COMMON NORMALS: normal respiratory effort, No retractions, No use of accessory muscles and clear to auscultation bilaterally AUSCULTATION: clear to auscultation bilaterally Cardio: COMMON NORMALS: regular rate, regular rhythm and No murmurs present (Cardio) RATE: regular rate RHYTHM: regular rhythm GI: COMMON NORMALS: Soft to palpation, non-tender and no masses PALPATION: Yes Soft to palpation OTHER: redness to abdomen Extremity: COMMON NORMALS: normal to inspection and full ROM Neuro: COMMON NORMALS: patient oriented x3, moves all extremities and no focal motor deficits Psych: COMMON NORMALS: mental status grossly normal, Normal thought process present and cooperative THOUGHT PROCESS: Normal thought process present Skin: COMMON NORMALS: no rashes or lesions noted and no wounds GENERAL SKIN EXAM: no rashes or lesions noted Course Vital Signs: Vital signs: Vital Signs Pulse Rate 86 12/23/24 16:20 Respiratory Rate 18 12/23/24 17:31 Blood Pressure 134/74 12/23/24 16:20 Pulse Oximetry 98 12/23/24 17:31 Oxygen Delivery Me thod Room Air 12/23/24 16:20 MDM - General Adult Medical Decision Making Patient presents here with some generalized weakness frequent falls does have CODY hypokalemia history of cirrhosis. Her imaging here is all normal did replace her potassium gave her a small fluid bolus has a possible UTI started on IV antibiotics. Medical Records I reviewed the patient's medical records. Lab Data I reviewed the patient's lab results. 12/23/24 16:18 12/23/24 16:18 Radiology Impressions Ankle X-Ray 12/23/24 16:18 IMPRESSION: Significant generalized soft tissue swelling about the ankle with questionable cortical irregularity at the medial aspect of the talus. Recommend clinical correlation for point tenderness to exclude a subtle fracture at this site. Chest X-Ray 12/23/24 16:18 IMPRESSION: Possible interstitial edema and central vascular congestion with suspected small right effusion. Foot X-Ray 12/23/24 16:18 IMPRESSION: No acute findings. Head CT 12/23/24 16:18 IMPRESSION: No acute intracranial abnormality. Cervical Spine CT 12/23/24 16:28 IMPRESSION: No cervical spine fracture is identified. Laboratory Results WBC 6.42 10^3/uL (3.29-11.43) 12/23/24 16:18 RBC 3.98 10^6/uL (3.85-5.65) 12/23/24 16:18 Hgb 11.00 g/dL (11.27-16.99) L 12/23/24 16:18 Hct 33.7 % (36-47) L 12/23/24 16:18 MCV 84.7 fl (85-98) L 12/23/24 16:18 MCH 27.6 pg (27-33) 12/23/24 16:18 MCHC 32.6 g/dL (30-55) 12/23/24 16:18 RDW 14.3 % (12.1-15.1) 12/23/24 16:18 Plt Count 158 10^3/cmm (157-399) 12/23/24 16:18 MPV 10.6 fL (7.4-10.4) H 12/23/24 16:18 Neut % (Auto) 76.3 % 12/23/24 16:18 Lymph % (Auto) 9.7 % 12/23/24 16:18 [place] % (Auto) 10.6 % 12/23/24 16:18 Eos % (Auto) 2.3 % 12/23/24 16:18 Baso % (Auto) 0.8 % 12/23/24 16:18 Neut # (Auto) 4.90 10^3/uL (1.8-7.7) 12/23/24 16:18 Lymph # (Auto) 0.6 10^3/uL (0.8-4.8) L 12/23/24 16:18 [place] # (Auto) 0.7 10^3/uL (0.2-0.9) 12/23/24 16:18 Eos # (Auto) 0.2 10^3/uL (0.0-0.8) 12/23/24 16:18 Baso # (Auto) 0.1 10^3/uL (0.0-0.1) 12/23/24 16:18 Nucleated RBC % (auto) 0 % 12/23/24 16:18 Nucleated RBCs # 0.0 /100WBC 12/23/24 16:18 Sodium 137 mmol/L (136-145) 12/23/24 16:18 Potassium 3.1 mmol/L (3.5-5.1) L 12/23/24 16:18 Chloride 96 mmol/L (98-107) L 12/23/24 16:18 Carbon Dioxide 25 mmol/L (22-29) 12/23/24 16:18 Anion Gap 19.1 (5-19) H 12/23/24 16:18 BUN 34 mg/dL (6-20) H 12/23/24 16:18 Creatinine 1.5 mg/dL (0.5-0.9) H 12/23/24 16:18 GFR Calculation 35.8 mL/min (90-130) L 12/23/24 16:18 Glucose 111 mg/dL (65-115) 12/23/24 16:18 Calculated Osmolality 292 mOsm/kg (285-295) 12/23/24 16:18 Calcium 9.4 mg/dL (8.5-10.5) 12/23/24 16:18 Magnesium 2.0 mg/dL (1.7-2.3) 12/23/24 16:18 Total Bilirubin 3.7 mg/dL (0.15-1.2) H 12/23/24 16:18 AST 176 U/L (0-32) H 12/23/24 16:18 ALT 67 U/L (0-33) H 12/23/24 16:18 Alkaline Phosphatase 102 U/L (35-105) 12/23/24 16:18 Ammonia 48 umol/L (11-51) 12/23/24 16:18 Total Protein 6.6 g/dL (6.6-8.7) 12/23/24 16:18 Albumin 3.5 g/dL (3.5-5.2) 12/23/24 16:18 Globulin 3.1 g/dL (1.3-4.6) 12/23/24 16:18 Lipase 24 U/L (13-60) 12/23/24 16:18 Urine Color Dark yellow (Yellow) A 12/23/24 16: Urine Appearance Turbid (CLEAR) A 12/23/24 16: Urine pH 5.5 (5-7) 12/23/24 16:29 Ur Specific [place] 1.024 (1.005-1.030) 12/23/24 16: Urine Protein 1+ (Negative) A 12/23/24 16: Urine Glucose (UA) Negative (Normal) 12/23/24 16: Urine Ketones Trace (Negative) 12/23/24 16: Urine Blood Non-haemolysed trace (Negative) 12/23/24 16: Urine Nitrate Negative (Negative) 12/23/24 16: Urine Bilirubin 2+ (Negative) H 12/23/24 16: Urine Urobilinogen 4.0 mg/dL (Negative) H 12/23/24 16:29 Ur Leukocyte Esterase 2+ (Negative) A 12/23/24 16: Urine RBC 6-10 /hpf (0-2) 12/23/24 16: Urine WBC >100 /hpf (0-5) H 12/23/24 16:29 Ur Squamous Epith Cells 51-100 /hpf (0-5) 12/23/24 16:29 Amorphous Sediment Not Reportable 12/23/24 16:29 Urine Bacteria 4+ /hpf (NONE) H 12/23/24 16:29 Hyaline Casts 37.64 /lpf 12/23/24 16:29 Fine Granular Casts 0-4 /lpf H 12/23/24 16:29 All radiology interpretation(s) finalized by discharge EKG Data EKG 1: I personally reviewed and interpreted this EKG as follows: EKG interpretation date: 12/23/24 EKG interpretation time: 16:45 Interpretation: nsr hr [address] or t wave abnormalities qrs 85 [id number] Computer generated interpretation: Ankle X-Ray 12/23/24 16:18 IMPRESSION: Significant generalized soft tissue swelling about the ankle with questionable cortical irregularity at the medial aspect of the talus. Recommend clinical correlation for point tenderness to exclude a subtle fracture at this site. Chest X-Ray 12/23/24 16:18 IMPRESSION: Possible interstitial edema and central vascular congestion with suspected small right effusion. Foot X-Ray 12/23/24 16:18 IMPRESSION: No acute findings. Head CT 12/23/24 16:18 IMPRESSION: No acute intracranial abnormality. Cervical Spine CT 12/23/24 16:28 IMPRESSION: No cervical spine fracture is identified. 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
[2024-12-23 16:38] LABS: Glucose Urine UA Negative (Normal); Nitrate Urine Negative (Negative); Specific Gravity, Urine 1.024 (1.005-1.030)
[2024-12-23 16:42] LABS: Alanine Aminotransferase 67 U/L (0-33); Albumin Level 3.5 g/dL (3.5-5.2); Alkaline Phosphatase 102 U/L (35-105); Anion Gap 19.1 (5-19); Aspartate Amino Transferase 176 U/L (0-32); Blood Urea Nitrogen 34 mg/dL (6-20); Calcium 9.4 mg/dL (8.5-10.5); Carbon Dioxide 25 mmol/L (22-29); Chloride 96 mmol/L (98-107); Creatinine Clr Calc Pharmacy 44.8601; Globulin 3.1 g/dL (1.3-4.6); Glucose 111 mg/dL (65-115); Lipase 24 U/L (13-60); Osmolality Calculated 292 mOsm/kg (285-295); Potassium 3.1 mmol/L (3.5-5.1); Sodium 137 mmol/L (136-145); Total Protein 6.6 g/dL (6.6-8.7)
[2024-12-23 16:43] LABS: Add Urine Microscopic? YES
[2024-12-23 16:48] LABS: Ammonia 48 umol/L (11-51)
[2024-12-23 16:55] LABS: UA Slide Review UA Slide Review Perf
--- NOTE | 2024-12-23 17:04 | PC.NURSE ---
antibiotics delayed d/t pending draw for blood cultures
[2024-12-23 17:31] VITALS: RESP 18; O2SAT 98
[2024-12-23] MEDS: morphine 4 mg/mL SDV 1 mL IVP (17:31)
[2024-12-23 17:48] LABS: Magnesium 2.0 mg/dL (1.7-2.3)
[2024-12-23 17:58] LABS: PCP Screen Urine Negative (Negative)
[2024-12-23] MEDS: cefTRIAXone 1,000 mg SDV 1000 MG IVP (17:59)
--- NOTE | 2024-12-23 18:09 | PM.HP ---
Providers/Chief Complaint Admitting Physician: Michael Curry Primary Care Provider: MARCELINO Rodrigez Chief Complaint: Confused tick bite Falling hurting everywhere History of Present Illness As per the previous notes and the patient Sandy Ernandez is a 59 year old female past medical history of liver cirrhosis recurrent ascites history hepatitis C, history of hepatic encephalopathy, methamphetamine use presented to the ER today due to increased confusion and multiple falls. Patient was seen by the ER and she was coherent and able to respond and interact on service. However she reported that she is having pain all over her body and feels tired. There was some redness at the bellybutton and reported tick bite and having mild pus as well but no tenderness. Tick bite panel well sent by the ER physician. Of note the patient had recent paracentesis removal 2 to 3 days ago. On further HPI from the patient and her sister who was accompanying her, of note the patient lives with a friend. And is an active meth user. Most of the history was provided by the sister and patient was confirming about the answers upon asking. The sister reported that the patient is having drowsiness on and off and also unable to keep keep her balance due to drowsiness and falling sometimes. No loss of consciousness chest pain chest pressure abdominal pain diarrhea nausea or vomiting. Patient feeling generally tired and fatigued but no focal neurological deficit. Furthermore she also reported having constipation from the last 3 to 4 days and does not like to have lactulose.. Patient is compliant with her medications. Review of Systems General: Reports: 10 or more systems reviewed and unremarkable except in HPI and below Medications/Allergies Home Medications ?Medication ?Instructions ?Recorded ?Confirmed ?Last Taken ?Type rifaximin 550 mg tablet (Xifaxan) 550 mg PO BID 12/10/23 12/19/24 12/18/24 History hydroxyzine HCl 50 mg tablet 50 mg PO QID PRN for sleep or 10/10/24 12/19/24 12/18/24 Rx panic attack #120 tabs paroxetine HCl 40 mg tablet 40 mg PO DAILY #30 tabs 10/10/24 12/19/24 12/18/24 Rx desvenlafaxine succinate 25 mg 25 mg PO BID 11/28/24 12/19/24 12/18/24 History tablet,extended release 24 hr (Pristiq) furosemide 40 mg tablet 40 mg PO DAILY 12/12/24 12/19/24 12/18/24 History potassium chloride 20 mEq 20 meq PO DAILY 12/12/24 12/19/24 12/18/24 History tablet,extended release(part/cryst) Allergies Allergy/AdvReac Type Severity Reaction Status Date / Time tramadol Allergy ADR-Nausea Verified 12/19/24 11:54 NSAIDS (Non-Steroidal AdvReac Unknown Verified 12/19/24 11:54 Anti-Inflamma PFSH Acute PFSH: Medical History (Updated 12/23/24 @ 20:53 by Michael Curry MD) SBP (spontaneous bacterial peritonitis) History of nephrolithiasis Methamphetamine use disorder, severe, in sustained remission Celiac disease Cirrhosis Enterococcus UTI Thrombocytopenia S/P abdominal paracentesis Hepatitis C Family History Mother Hypertension Family/Other Hypertension Denies family history of Diabetes CAD (coronary artery disease) Cancer Social History Smoking and tobacco/nicotine status: never used tobacco/nicotine Second hand smoke exposure: Yes Alcohol intake: former Former alcohol use details: 25 years ago Substance/Drug Use: former Former substance use details: 5-6 years ago Adopted: No Caregiver/support person: No Lives independently: Yes Household members: friend(s) Housing: House Marital status: Marital status details: while in skilled nursing, never met him outside of skilled nursing Number of children: 2 Number of grandchildren: 5 Highest education level completed: Some College, No Degree service: No Current occupational status: disabled Current occupation: working on getting disability Current occupational exposures/hazards: No Pets and animals: Yes Pets & animals: dog(s) Leisure activites: other Leisure activities details: watch movies and play with grand kids Sexually active: No Do you think of yourself as: Straight/Heterosexual Current gender identity: Female Lauren/Sabianism: Buddhist Special lauren needs: No Agree to transfusion: Yes Female Reproductive History: Para: 2 Vitals/I&O/Wt Last Vital Signs Pulse 86 12/23/24 16:20 Resp 18 12/23/24 17:31 BP 134/74 12/23/24 16:20 Pulse Ox 98 12/23/24 17:31 O2 Del Method Room Air 12/23/24 16:20 Weight last 48 hrs Weight 86.183 kg Physical Exam Narrative: General: Alert and oriented, but mildly sleepy with positive flapping tremors, patient feels unkept HEENT: Normocephalic, atraumatic, grossly unremarkable exam Cardio: normal rate rhythm, normal S1-S2 without any murmurs, rubs, or gallops and JVD normal Respiratory: normal vascular breathing on auscultation without any wheezes, stridor, rhonchi GI: Abdomen soft, nontender, nondistended, normoactive bowel sounds present all 4 quadrants, having wound at the umbilical site with mild pus, no organomegaly Neuro: Grossly unremarkable neurological exam however having mild drowsiness but is alert and oriented and able to protect her airways Behavior: Appropriate and cooperative Extremities: Adequate palpable pulses, moderate pedal edema with chronic skin changes Data 12/23/24 16:18 12/23/24 16:18 Micro: Microbiology 12/23/24 17:28 Blood Culture - Preliminary Blood SPECIMEN COLLECTED 12/23/24 17:33 Blood Culture - Preliminary Blood SPECIMEN COLLECTED A&P Assessment and plan 1. Weakness: Likely related to electrolyte imbalance secondary to liver cirrhosis with underlying constipation. Lactulose 3 times daily Correction for electrolytes specially potassium and magnesium 2. CODY (acute kidney injury): Continue adequate hydration repeat UA since the previous UA was not clean catch, ceftriaxone 1gm daily to continue meanwhile considering the patient is immunocompromised and may have underlying UTI. descalation based on the cultures Monitor intake and output and renal parameters 3. Hypokalemia: Correction provided and to monitor potassium 4. Cirrhosis: having increase liver enzymes USG liver and to monitor liver functions avoid hepatotoxic medications 5. Thrombocytopenia: secondary to Liver cirrhosis, currently stable monitor CBC and any source of obvious bleeding 6. Abdominal ascites: currently stable and s/p paracentesis of around 6l 2-3 days ago hold diuretics at the moment since the pt is having low potassium correct potassium and start diuretics monitor for intake and output monitoring 7. Methamphetamine use disorder, severe, in sustained remission: adequate couseling provided PCP referral at the time of discharge 8. Memory changes: TSH and phos check to follow up the results 9. Nutritional deficiency disorder: dietitian consult and to follow recs 10. Malnourished: dietitian consult and to follow recs PDMP PDMP Reviewed: Not Reviewed Attestations Medical Necessity Statement*: Sandy Ernandez's hospital stay will require greater than 2 midnights for management of electrolyte imbalance generalized weakness and severe malnourishment with deconditioning Time Spent in Patient Care: 16 - 35 minutes (>than 50% of time spent in counselling and/or direct pt care on unit). Other Attestations: Patient condition has been discussed at length with the patient/family, I have independently reviewed the chart labs imaging/diagnostics/EKG. the goals of care and code status with the patient/family/NOK/legal denial management representative, and documented accordingly. The patient/family has been informed about the current condition and further plan of care. Agreed with the plan of care and understood without any language barrier. 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 Any obvious errors or omissions should be clarified with the author of the document. Coding Level of Care Code 44562 Diagnoses Weakness R53.1 CODY (acute kidney injury) N17.9 Hypokalemia E87.6 Cirrhosis K74.60 Thrombocytopenia D69.6 Abdominal ascites R18.8 Methamphetamine use disorder, severe, in sustained remission F15.21 Memory changes R41.3 Nutritional deficiency disorder E63.9 Malnourished E46
[2024-12-23 18:22] VITALS: BP 118/64; PULSE 77; RESP 18; O2SAT 96
[2024-12-23 19:57] VITALS: BP 118/74; PULSE 70; RESP 14; O2SAT 96
[2024-12-23 20:06] VITALS: BP 106/59; PULSE 77; RESP 21; TEMP 36.8; O2SAT 97
[2024-12-23] MEDS: heparin 5,000 unit/mL INJ 1 mL 5000 UNIT SUBCUT (20:33)
[2024-12-23] MEDS: pantoprazole 40 mg SDV IVP (20:35)
[2024-12-23] MEDS: lactulose oral liq 20 gm/30 mL UDC 10 GM PO (20:35)
[2024-12-23 21:15] VITALS: RESP 18
[2024-12-23] MEDS: HYDROmorphone tab 2 MG TABLET PO (21:15)
[2024-12-23 23:47] LABS: Free T4 Free Thyroxine 1.59 ng/dL (0.82-1.77); Thyroid Stimulating Hormone 7.55 uIU/mL (0.27-4.20)
[2024-12-24] VITALS (12 sets, daily range): BP systolic 95–111; BP diastolic 53–68; PULSE 72–95; RESP 10–18; TEMP 36.4–37.1; O2SAT 90–96
[2024-12-24 04:49] LABS: Hematocrit 31.6 % (36-47); Hemoglobin 10.00 g/dL (11.27-16.99); Mean Corpuscular HGB Conc 31.6 g/dL (30-55); Mean Corpuscular Hemoglobin 27.4 pg (27-33); Mean Corpuscular Volume 86.6 fl (85-98); Nucleated Red Blood Cells % 0 %; Platelet Count 125 10^3/cmm (157-399); Red Blood Count 3.65 10^6/uL (3.85-5.65); White Blood Count 4.90 10^3/uL (3.29-11.43)
[2024-12-24 05:14] LABS: Alanine Aminotransferase 54 U/L (0-33); Albumin Level 2.9 g/dL (3.5-5.2); Alkaline Phosphatase 92 U/L (35-105); Anion Gap 16.6 (5-19); Aspartate Amino Transferase 129 U/L (0-32); Blood Urea Nitrogen 31 mg/dL (6-20); Calcium 8.9 mg/dL (8.5-10.5); Carbon Dioxide 24 mmol/L (22-29); Chloride 106 mmol/L (98-107); Globulin 2.8 g/dL (1.3-4.6); Glucose 89 mg/dL (65-115); Osmolality Calculated 302 mOsm/kg (285-295); Potassium 3.6 mmol/L (3.5-5.1); Sodium 143 mmol/L (136-145); Total Protein 5.7 g/dL (6.6-8.7)
[2024-12-24 05:15] LABS: Creatinine Clr Calc Pharmacy 51.7617
[2024-12-24] MEDS: heparin 5,000 unit/mL INJ 1 mL 5000 UNIT SUBCUT ×2 (08:54→21:05)
[2024-12-24] MEDS: lactulose oral liq 20 gm/30 mL UDC 10 GM PO ×3 (08:54→20:55)
--- NOTE | 2024-12-24 08:54 | PM.PN ---
Subjective Subjective: Patient seen in the morning and doing much better. Alert and oriented She passed bowel motion in 24 hours and was feeling hungry. Still having at the umbilical site with mild slough and pus, assigned nurse has been informed and wound care to continue. Vitals/I&O/Wt Last Vital Signs Temp 98.8 F 12/24/24 07:59 Pulse 79 12/24/24 07:59 Resp 15 12/24/24 07:59 BP 106/56 12/24/24 07:59 Pulse Ox 92 12/24/24 07:59 O2 Del Method Room Air 12/24/24 07:59 12/23/24 12/24/24 12/24/24 22:59 06:59 14:59 Intake Total 500 / 500 Output Total 300 / 300 Balance 500 / 500 -300 / 200 Weight last 48 hrs Weight 86.545 kg Weight 86.183 kg Weight 86.183 kg Physical Exam Narrative: General: Alert and oriented, with mild flapping tremor, on room air, able to speak in full sentences HEENT: Normocephalic, atraumatic, grossly unremarkable exam Cardio: normal rate rhythm, normal S1-S2 without any murmurs, rubs, or gallops and JVD normal Respiratory: normal vascular breathing on auscultation without any wheezes, stridor, rhonchi GI: Abdomen soft, nontender, nondistended, normoactive bowel sounds present all 4 quadrants, having wound at the umbilical site with mild pus and slough for wound care, no organomegaly Neuro: Grossly unremarkable neurological exam however having mild drowsiness but is alert and oriented and able to protect her airways Behavior: Appropriate and cooperative Extremities: Adequate palpable pulses, moderate pedal edema with chronic skin changes Urinary Catheter Management: Patel: Cath Placed During This Visit: yes Reason for Continuing Indwelling Catheter: Other Urinary Catheter Date of Insertion: 12/24/24 Urinary Catheter Time of Insertion: 05:21 Data 12/24/24 03:46 12/24/24 03:46 Micro: Microbiology 12/23/24 16:29 Urine Culture - Preliminary Urine,Clean Catch Gram Negative Rods 12/23/24 17:28 Blood Culture - Preliminary Blood SPECIMEN COLLECTED 12/23/24 17:33 Blood Culture - Preliminary Blood SPECIMEN COLLECTED A&P Assessment and plan 1. Weakness: Likely related to electrolyte imbalance secondary to liver cirrhosis with underlying constipation. Lactulose 3 times daily Correction for electrolytes specially potassium and magnesium 2. CODY (acute kidney injury): Continue adequate hydration repeat UA since the previous UA was not clean catch, ceftriaxone 1gm daily to continue meanwhile considering the patient is immunocompromised and may have underlying UTI. descalation based on the cultures Monitor intake and output and renal parameters 3. Hypokalemia: Resolved correction provided and to monitor potassium 4. Cirrhosis: having increase liver enzymes, getting stable USG liver showed signs of liver cirrhosis and ascites but no other acute change as compared to the previous study reported T0 monitor liver functions avoid hepatotoxic medications 5. Thrombocytopenia: secondary to Liver cirrhosis, currently stable monitor CBC and any source of obvious bleeding 6. Chronic abdominal wound infection: Patient having wound at the umbilical site with mild pus around the skin and discharge. The patient continues to scratch the wound. No hematoma swelling or redness appreciated around the wound. Wound care consult Assigned nurse has been informed about adequate hygienic measures/aseptic cleaning of the wound site 7. Abdominal ascites: currently stable and s/p paracentesis of around 6l 2-3 days ago hold diuretics at the moment since the pt is having low potassium Replace potassium daily with 20 mEq and start furosemide oral 40 daily monitor for intake and output monitoring 8. Methamphetamine use disorder, severe, in sustained remission: adequate couseling provided PCP referral at the time of discharge 9. 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 Nutritional deficiency disorder: dietitian consult and to follow recs 11. Malnourished: dietitian consult and to follow recs PDMP PDMP Reviewed: Not Reviewed Attestations Medical Necessity Statement*: Sandy Ernandez's hospital stay will require greater than 2 midnights for management of CODY, electrolyte imbalance generalized weakness and severe malnourishment with deconditioning Time Spent in Patient Care: 16 - 35 minutes (>than 50% of time spent in counselling and/or direct pt care on unit). Other Attestations: Patient condition has been discussed at length with the patient/family, I have independently reviewed the chart labs imaging/diagnostics/EKG. the goals of care and code status with the patient/family/NOK/legal accounts receivable representative, and documented accordingly. The patient/family has been informed about the current condition and further plan of care. Agreed with the plan of care and understood without any language barrier. 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 Any obvious errors or omissions should be clarified with the author of the document. Coding Level of Care Code 58405 Diagnoses Weakness R53.1 CODY (acute kidney injury) N17.9 Hypokalemia E87.6 Cirrhosis K74.60 Thrombocytopenia D69.6 Chronic abdominal wound infection S31.109A; L08.9 Abdominal ascites R18.8 Methamphetamine use disorder, severe, in sustained remission F15.21 Memory changes R41.3 Nutritional deficiency disorder E63.9 Malnourished E46
[2024-12-24] MEDS: HYDROmorphone tab 2 MG TABLET PO (14:26)
[2024-12-24 14:43] LABS: Glucose Urine UA Negative (Normal); Nitrate Urine Positive (Negative); Specific Gravity, Urine 1.024 (1.005-1.030)
[2024-12-24 14:48] LABS: Add Urine Microscopic? YES
[2024-12-24] MEDS: cefTRIAXone 1,000 mg SDV 1000 MG IVP (17:29)
--- NOTE | 2024-12-24 18:00 | PC.NURSE ---
Shift assessment: Pt rested in the bed for entire shift. She was very confused and drowsy this am It has progressively improved throughout the day. She is oriented to self, , place, age. She is at time uncoordinated and unsteady with her arms. She spill juices in her bed. She has had a great appetite, eting majority of every meal. Family brought is a large specialty coffee and donuts. She reported pain on her lower back once this afternoon, Dilaudid PO admin, it really helped per her. VSS. Sinus rhythm noted on monitor. Belly button cleansed and dressing applied as ordered. She does have a bruise on her right lower bottom that is tender. Liver US completed today. IV fluids, Pristig, Rifaxamin started today. 300ml of dark yellow urine noted in [place].
--- NOTE | 2024-12-24 20:12 | USR_ITS ---
PROCEDURE INFORMATION: Exam: US Abdomen, Limited; Right Upper Quadrant Exam date and time: 12/24/2024 8:38 AM Age: 59 years old Clinical indication: Abnormal findings; Abnormal lab test; Elevated liver enzymes; Additional info: Increased liver enzymes from baseline TECHNIQUE: Imaging protocol: Real time ultrasound of the abdomen with image documentation. Limited exam focused on the right upper quadrant. COMPARISON: US paracentesis abd w [id number] 12/19/2024 12:00 PM FINDINGS: Liver: Cirrhosis. The liver is small in size with a lobular contour. Gallbladder: The gallbladder is not distinctly seen. Biliary ducts: Normal. No stones. No dilation. Pancreas: Visualized pancreas is unremarkable. Right kidney: Normal. No mass. No hydronephrosis. Portal venous: The portal vein is not clearly identified. A vessel in its expected location is pulsatile. Intraperitoneal space: Large volume ascites. US/US liver [id number] IMPRESSION: Cirrhosis and ascites.
[2024-12-24] MEDS: pantoprazole 40 mg SDV IVP (20:54)
[2024-12-25] VITALS (7 sets, daily range): BP systolic 100–166; BP diastolic 60–81; PULSE 72–84; RESP 15–18; TEMP 36.6–36.8; O2SAT 92–97
[2024-12-25 03:32] LABS: Alanine Aminotransferase 48 U/L (0-33); Albumin Level 2.7 g/dL (3.5-5.2); Alkaline Phosphatase 113 U/L (35-105); Anion Gap 14.8 (5-19); Aspartate Amino Transferase 92 U/L (0-32); Blood Urea Nitrogen 25 mg/dL (6-20); Calcium 8.5 mg/dL (8.5-10.5); Carbon Dioxide 25 mmol/L (22-29); Chloride 106 mmol/L (98-107); Globulin 2.7 g/dL (1.3-4.6); Glucose 122 mg/dL (65-115); Osmolality Calculated 300 mOsm/kg (285-295); Potassium 3.8 mmol/L (3.5-5.1); Sodium 142 mmol/L (136-145); Total Protein 5.4 g/dL (6.6-8.7)
[2024-12-25 03:36] LABS: Hematocrit 32.3 % (36-47); Hemoglobin 10.10 g/dL (11.27-16.99); Mean Corpuscular HGB Conc 31.3 g/dL (30-55); Mean Corpuscular Hemoglobin 27.5 pg (27-33); Mean Corpuscular Volume 88.0 fl (85-98); Nucleated Red Blood Cells % 0 %; Platelet Count 114 10^3/cmm (157-399); Red Blood Count 3.67 10^6/uL (3.85-5.65); White Blood Count 3.48 10^3/uL (3.29-11.43)
[2024-12-25 03:37] LABS: Creatinine Clr Calc Pharmacy 56.1934
[2024-12-25] MEDS: heparin 5,000 unit/mL INJ 1 mL 5000 UNIT SUBCUT ×2 (08:43→21:54)
[2024-12-25] MEDS: lactulose oral liq 20 gm/30 mL UDC 10 GM PO ×3 (08:44→21:51)
--- NOTE | 2024-12-25 10:56 | P.PN_ITS ---
Subjective 2 Subjective: 59-year-old female with histor y of alcoholism states she quit 3 years ago. She has cirrhosis and has had ultrasound-guided paracentesis 5 to 8 L every 7 days outpatient. She states she does not take her lactulose trying to avoid diarrhea and has not taken lactulose in over 2 years. She states her sister convinced her to take a dose. She states that her daughter lives close send is not a drug user. Patient has a roommate whom she states is not a drug user. Patient tells me that she does not smoke or use marijuana. She admits to meth use in the remote past and states that she only used once recently when thinking of her mother who is . Patient came in with myalgias and confusion but after restarted on lactulose this cleared. Patient complains of itchy eyes and watery eyes Vitals/I&O/Wt Last Vital Signs Temp 97.8 F 12/25/24 07:41 Pulse 74 12/25/24 07:41 Resp 18 12/25/24 07:41 BP 100/63 12/25/24 07:41 Pulse Ox 94 12/25/24 07:41 O2 Del Method Room Air 12/25/24 07:41 12/24/24 12/25/24 12/25/24 22:59 06:59 14:59 Intake Total 1250 / 1490 1120 / 2610 120 / 120 Output Total 550 / 550 550 / 550 Balance 1250 / 1490 570 / 2060 -430 / -430 Weight last 48 hrs Weight 89.131 kg Weight 86.545 kg Weight 86.183 kg Weight 86.183 kg Physical Exam 2 Narrative: General well-developed well-nourished chronically ill-appearing female in no acute cardiopulmonary stress Skin is agrayish color but not overtly jaundiced Sclera not icteric conjunctiva bilaterally equal minimal erythema no significant discharge CV regular rate and rhythm Lungs clear to auscultation bilaterally Abdomen diminished bowel tones distended obese fluid wave appreciated Calves 1+ to 2 edema Urinary Catheter Management: Patel: Cath Placed During This Visit: yes Reason for Continuing Indwelling Catheter: Acute Urinary Retention or Obstruction Urinary Catheter Date of Insertion: 12/24/24 Urinary Catheter Time of Insertion: 05:21 Data 12/25/24 02:18 12/25/24 02:18 Micro: Microbiology 12/24/24 14:11 Urine Culture - Preliminary Urine,Clean Catch 12/23/24 16:29 Urine Culture - Final Urine,Clean Catch Escherichia coli esbl 12/23/24 17:28 Blood Culture - Preliminary Blood NEGATIVE TO DATE 12/23/24 17:33 Blood Culture - Preliminary Blood NEGATIVE TO DATE A&P Assessment and plan 1. Hepatic encephalopathy: Patient has been noncompliant with her lactulose. She counseled regarding the need to take this or else she would become obtunded. She voices some willingness to comply but not very convincing. Continue with lactulose to effect 2-3 loose stools a day continue with rifaximin 2. CODY (acute kidney injury): Improved. Continue furosemide 40 mg daily add spironolactone 25 mg twice a day monitor kidney function and electrolytes in the morning. 3. Cirrhosis: Elevated LFTs improving during course of admission [facility] liver showed signs of liver cirrhosis and ascites but no other acute change as compared to the previous study reported T0 monitor liver functions avoid hepatotoxic medications 4. Thrombocytopenia: secondary to Liver cirrhosis, currently stable monitor CBC and any source of obvious bleeding 5. Chronic abdominal wound infection: Patient having wound at the umbilical site with mild pus around the skin and discharge. The patient continues to scratch the wound. No hematoma swelling or redness appreciated around the wound. Wound care consult Assigned nurse has been informed about adequate hygienic measures/aseptic cleaning of the wound site 6. Abdominal ascites: currently stable and s/p paracentesis of around 6l 2-3 days ago She is resumed on furosemide and potassium and started on spironolactone. Monitor for signs of renal failure. Ideally we would stabilize her on diuretics and decrease to frequency and amount of paracentesis required 7. Methamphetamine abuse, episodic: Additional counseling today. Patient professes that this is a rare use of methamphetamine i.e. first time in 5 years PCP referral at the time of discharge 8. Nutritional deficiency disorder: dietitian consult and to follow recs PDMP PDMP Reviewed: Not Reviewed Attestations 2 Medical Necessity Statement*: Patient remains in the hospital overnight for monitoring of urine output and measuring renal function in the morning anticipate discharge tomorrow Coding Level of Care Code 83313 Diagnoses Hepatic encephalopathy K76.82 CODY (acute kidney injury) N17.9 Cirrhosis K74.60 Thrombocytopenia D69.6 Chronic abdominal wound infection S31.109A; L08.9 Abdominal ascites R18.8 Methamphetamine abuse, episodic F15.10 Nutritional deficiency disorder E63.9 Time Spent (min) 35
--- NOTE | 2024-12-25 15:11 | PC.OT ---
OT EVALUATION ATTEMPTED; PATIENT UNABLE TO STAY AWAKE TO ACTIVELY PARTICIPATE IN SKILLED OT EVALUATION.
[2024-12-25] MEDS: cefTRIAXone 1,000 mg SDV 1000 MG IVP (17:37)
[2024-12-25] MEDS: pantoprazole 40 mg SDV IVP (21:57)
[2024-12-26 03:23] VITALS: BP 127/4; PULSE 68; RESP 18; TEMP 36.8; O2SAT 96
[2024-12-26 05:25] LABS: Alanine Aminotransferase 41 U/L (0-33); Albumin Level 2.6 g/dL (3.5-5.2); Alkaline Phosphatase 105 U/L (35-105); Anion Gap 12.5 (5-19); Aspartate Amino Transferase 59 U/L (0-32); Blood Urea Nitrogen 19 mg/dL (6-20); Calcium 8.2 mg/dL (8.5-10.5); Carbon Dioxide 25 mmol/L (22-29); Chloride 105 mmol/L (98-107); Creatinine Clr Calc Pharmacy 68.4457; Globulin 2.6 g/dL (1.3-4.6); Glucose 108 mg/dL (65-115); Osmolality Calculated 291 mOsm/kg (285-295); Potassium 3.5 mmol/L (3.5-5.1); Sodium 139 mmol/L (136-145); Total Protein 5.2 g/dL (6.6-8.7)
[2024-12-26 08:00] VITALS: BP 136/76; PULSE 75; RESP 16; TEMP 36.7; O2SAT 95
[2024-12-26] MEDS: lactulose oral liq 20 gm/30 mL UDC 10 GM PO ×3 (08:12→20:28)
[2024-12-26] MEDS: heparin 5,000 unit/mL INJ 1 mL 5000 UNIT SUBCUT ×2 (08:15→20:29)
--- NOTE | 2024-12-26 10:57 | PC.CHAP ---
Pastoral Care Encounter/Spiritual Assessment Type of Contact [] Declined mushroom growth media mixer visit [] Patient/Family/Request visit [] Outpatient visit [] Follow-up visit [] Physician referral [] Code/Alert [] Routine visit [] Staff referral [] Actively dying [] Patient sleeping [] Family support [] [] Out of room [] Palliative care [] [x] Receiving care in room [] Pre-surgical visit [] Trauma [] Long length of stay [] ICU visit [] Other: Relational/Emotional Strength [] Patient feels connected with others/family/visitors/staff [] Distress [] Loneliness/isolation [] Abandonment Spirituality of Patient [] Person of Lauren [] Attends Latter Day of their Lauren [] Believes in Prayer [] Reads Bible or Episcopalian materials [] There are Spiritual issues to be addressed Neonatologist Interventions [] Prayer [] Active listening [] Non-anxious presence [] Spiritual/emotional support [] Crisis/trauma care [] Spiritual counseling [] Bereavement support [] Provided bereavement packet [] Provided Bible/devotional materials [] Provided toy/stuffed animal, coloring book to patient or family member [] Provided Communion [] Anointing/[place] [] Salvation [] Completed spiritual assessment [] Other: Impact on Illness or Injury [] Angry [] Fearful [] Anxious [] Often cries [] Exhaustion [] Unable to work [] Unable to attend faith [] Unable to walk/stand [] Unable to read [] Unable to drive [] Unable to eat/drink [] Unable to sleep [] Unable to be with family [] Patient intubated [] Other: Summary Time spent with patient
[2024-12-26 11:21] VITALS: BP 120/72; PULSE 71; RESP 14; TEMP 36.8; O2SAT 95
--- NOTE | 2024-12-26 11:46 | P.PN_ITS ---
Subjective 2 Subjective: 59-year-old female with histor y of alcoholism states she quit 3 years ago. She has cirrhosis and has had ultrasound-guided paracentesis 5 to 8 L every 7 days outpatient. Overnight weights and intake and output are not accurate. It shows that her weight was 89 kg yesterday 93.6 kg today. We did a standing scale weight with Valentina the RN and she weighed 192 pounds which is 87.27 kg. Patient has a Patel currently with 200 cc since 7 in the morning Vitals/I&O/Wt Last Vital Signs Temp 98.2 F 12/26/24 11:21 Pulse 71 12/26/24 11:21 Resp 14 12/26/24 11:21 BP 120/72 12/26/24 11:21 Pulse Ox 95 12/26/24 11:21 O2 Del Method Room Air 12/26/24 11:21 12/25/24 12/26/24 12/26/24 22:59 06:59 14:59 Intake Total 120 / 1720 Balance 120 / 1170 Weight last 48 hrs Weight 93.638 kg Weight 89.131 kg Physical Exam 2 Narrative: General well-developed well-nourished chronically ill-appearing female in no acute cardiopulmonary stress Skin is agrayish color but not overtly jaundiced Sclera not icteric conjunctiva bilaterally equal minimal erythema no significant discharge CV regular rate and rhythm Lungs clear to auscultation bilaterally Abdomen diminished bowel tones distended obese fluid wave appreciated Calves 1+ to 2 edema Patient is alert and oriented to person place month Urinary Catheter Management: Patel: Cath Placed During This Visit: yes Reason for Continuing Indwelling Catheter: Acute Urinary Retention or Obstruction Urinary Catheter Date of Insertion: 12/24/24 Urinary Catheter Time of Insertion: 05:21 Data 12/25/24 02:18 12/26/24 03:53 Micro: Microbiology 12/24/24 14:11 Urine Culture - Final Urine,Clean Catch 12/23/24 16:29 Urine Culture - Final Urine,Clean Catch Escherichia coli esbl A&P Assessment and plan 1. Hepatic encephalopathy: Patient has been noncompliant with her lactulose. She counseled regarding the need to take this or else she would become obtunded. Continue with left rifaximin and lactulose with goal 2-3 loose stools a daily 2. CODY (acute kidney injury): Urine output is poor. Skip paracentesis today and see if she will diurese. Follow kidney function to see if she can tolerate diuresis. Increase furosemide to 40 mg twice a day start Zaroxolyn 5 mg daily first dose now and increase spironolactone to 50 mg twice a day 3. Cirrhosis: Elevated LFTs improving during course of admission [facility] liver showed signs of liver cirrhosis and ascites but no other acute change as compared to the previous study reported T0 monitor liver functions avoid hepatotoxic medications 4. Thrombocytopenia: secondary to Liver cirrhosis, currently stable at 114 monitor CBC and any source of obvious bleeding 5. Chronic abdominal wound infection: Patient having wound at the umbilical site with mild pus around the skin and discharge. The patient continues to scratch the wound. No hematoma swelling or redness appreciated around the wound. Wound care consult Assigned nurse has been informed about adequate hygienic measures/aseptic cleaning of the wound site 6. Abdominal ascites: currently stable and s/p paracentesis of 6500 cc 12/19/2024 Increase diuretics and follow urine output and renal function 7. Methamphetamine abuse, episodic: Additional counseling today. Patient professes that this is a rare use of methamphetamine i.e. first time in 5 years PCP referral at the time of discharge 8. Nutritional deficiency disorder: dietitian consult and to follow recs Plan: Extra time taken for counseling patient as well as in discussion with and instructing nurse Montgomery, the nursing assistants teacher training regarding need for accurate daily weights standing scale PDMP PDMP Reviewed: Not Reviewed Attestations 2 Medical Necessity Statement*: Patient will be observed in the hospital for additional 1 to 2 days for diuretic response Coding Level of Care Code Acute Code for [facility] Diagnoses Hepatic encephalopathy K76.82 CODY (acute kidney injury) N17.9 Cirrhosis K74.60 Thrombocytopenia D69.6 Chronic abdominal wound infection S31.109A; L08.9 Abdominal ascites R18.8 Methamphetamine abuse, episodic F15.10 Nutritional deficiency disorder E63.9 Time Spent (min) 35
[2024-12-26 15:27] VITALS: BP 146/75; PULSE 82; RESP 16; TEMP 36.6; O2SAT 97
[2024-12-26] MEDS: cefTRIAXone 1,000 mg SDV 1000 MG IVP (17:35)
[2024-12-26 19:20] VITALS: BP 129/62; PULSE 72; RESP 15; TEMP 36.8; O2SAT 97
[2024-12-26] MEDS: pantoprazole 40 mg SDV IVP (20:23)
[2024-12-26 23:18] VITALS: BP 122/74; PULSE 73; RESP 16; TEMP 36.9; O2SAT 94
[2024-12-27 03:13] VITALS: BP 128/62; PULSE 73; RESP 16; TEMP 36.7; O2SAT 95
[2024-12-27 04:26] LABS: Hematocrit 35.6 % (36-47); Hemoglobin 11.40 g/dL (11.27-16.99); Mean Corpuscular HGB Conc 32.0 g/dL (30-55); Mean Corpuscular Hemoglobin 27.7 pg (27-33); Mean Corpuscular Volume 86.4 fl (85-98); Nucleated Red Blood Cells % 0 %; Platelet Count 112 10^3/cmm (157-399); Red Blood Count 4.12 10^6/uL (3.85-5.65); White Blood Count 3.93 10^3/uL (3.29-11.43)
[2024-12-27 04:38] LABS: Alanine Aminotransferase 35 U/L (0-33); Albumin Level 2.5 g/dL (3.5-5.2); Alkaline Phosphatase 116 U/L (35-105); Anion Gap 15.2 (5-19); Aspartate Amino Transferase 49 U/L (0-32); Blood Urea Nitrogen 16 mg/dL (6-20); Calcium 8.0 mg/dL (8.5-10.5); Carbon Dioxide 26 mmol/L (22-29); Chloride 99 mmol/L (98-107); Creatinine Clr Calc Pharmacy 78.0135; Globulin 3.0 g/dL (1.3-4.6); Glucose 102 mg/dL (65-115); Magnesium 1.6 mg/dL (1.7-2.3); Osmolality Calculated 285 mOsm/kg (285-295); Potassium 3.2 mmol/L (3.5-5.1); Sodium 137 mmol/L (136-145); Total Protein 5.5 g/dL (6.6-8.7)
[2024-12-27 07:18] VITALS: BP 133/74; PULSE 73; RESP 16; TEMP 36.6; O2SAT 95
[2024-12-27] MEDS: heparin 5,000 unit/mL INJ 1 mL 5000 UNIT SUBCUT (08:50)
[2024-12-27] MEDS: lactulose oral liq 20 gm/30 mL UDC 10 GM PO (08:51)
--- NOTE | 2024-12-27 09:46 | PC.CHAP ---
Pastoral Care Encounter/Spiritual Assessment Type of Contact [] Declined synchro assembler visit [] Patient/Family/Request visit [] Outpatient visit [] Follow-up visit [] Physician referral [] Code/Alert [] Routine visit [] Staff referral [] Actively dying [] Patient sleeping [] Family support [] [] Out of room [] Palliative care [] [x] Receiving care in room [] Pre-surgical visit [] Trauma [] Long length of stay [] ICU visit [] Other: Relational/Emotional Strength [] Patient feels connected with others/family/visitors/staff [] Distress [] Loneliness/isolation [] Abandonment Spirituality of Patient [] Person of Lauren [] Attends Cheondoism of their Lauren [] Believes in Prayer [] Reads Bible or Restorationist materials [] There are Spiritual issues to be addressed Web Content & Social Media Manager Interventions [] Prayer [] Active listening [] Non-anxious presence [] Spiritual/emotional support [] Crisis/trauma care [] Spiritual counseling [] Bereavement support [] Provided bereavement packet [] Provided Bible/devotional materials [] Provided toy/stuffed animal, coloring book to patient or family member [] Provided Communion [] Anointing/[place] [] Salvation [] Completed spiritual assessment [] Other: Impact on Illness or Injury [] Angry [] Fearful [] Anxious [] Often cries [] Exhaustion [] Unable to work [] Unable to attend temple [] Unable to walk/stand [] Unable to read [] Unable to drive [] Unable to eat/drink [] Unable to sleep [] Unable to be with family [] Patient intubated [] Other: Summary Time spent with patient
[2024-12-27 11:28] VITALS: BP 125/71; PULSE 72; RESP 17; TEMP 36.8; O2SAT 96
--- NOTE | 2024-12-27 11:49 | PM.DCS ---
Discharge Providers Date of Admission: 12/23/24 17:32 Date of Discharge: December 27, 2024 Attending Provider at Admission: Michael Curry MD Attending Provider at Discharge: Rickey Merrill MD Primary Care Provider: MARCELINO Rodrigez Diagnoses at Discharge Discharge Diagnosis 1. Hepatic encephalopathy: Details from hospital stay: Improved mentation cleared patient counseled that she needs to take her lactulose to affect 2 loose stools a day minimum and also continue rifaximin 2. CODY (acute kidney injury): Details from hospital stay: Resolved stable on diuretics 3. Cirrhosis: Details from hospital stay: Stable 4. Thrombocytopenia: Details from hospital stay: Stable 5. Chronic abdominal wound infection: Details from hospital stay: Continue with wound care 6. Abdominal ascites: Details from hospital stay: Increased her diuretics and she is fluid balance -3 L yesterday. Follow-up with PCP next week to adjust diuretics. CHEM panel in a week 7. Methamphetamine abuse, episodic: Details from hospital stay: Patient is counseled that she needs to remain completely off methamphetamines without excuses for intermittent use 8. Nutritional deficiency disorder: Details from hospital stay: We should limit paracentesis favoring diuresis to avoid losing albumin with large-volume paracentesis 9. Hypothyroidism: Details from hospital stay: Started on levothyroxine 75 mcg daily check TSH in 1 month Reason for Visit Reason for Visit: Confused tick bite Falling hurting everywhere Brief History: Sandy Ernandez is a 59 year old female past medical history of liver cirrhosis recurrent ascites history hepatitis C, history of hepatic encephalopathy, methamphetamine use presented to the ER today due to increased confusion and multiple falls. Patient was seen by the ER and she was coherent and able to respond and interact on service. However she reported that she is having pain all over her body and feels tired. There was some redness at the bellybutton and reported tick bite and having mild pus as well but no tenderness. Tick bite panel well sent by the ER physician. Of note the patient had recent paracentesis removal 2 to 3 days ago. On further HPI from the patient and her sister who was accompanying her, of note the patient lives with a friend. And is an active meth user. Most of the history was provided by the sister and patient was confirming about the answers upon asking. The sister reported that the patient is having drowsiness on and off and also unable to keep keep her balance due to drowsiness and falling sometimes. No loss of consciousness chest pain chest pressure abdominal pain diarrhea nausea or vomiting. Patient feeling generally tired and fatigued but no focal neurological deficit. Furthermore she also reported having constipation from the last 3 to 4 days and does not like to have lactulose.. Patient is compliant with her medications. Hospital Course Hospital Course 59-year-old female came in with hepatic encephalopathy from not taking her lactulose. She did not like having the diarrhea. She also was getting paracentesis every 7 days removing 5 to 9 L at a time. She was on minimal diuretics. Patient was found to have UTI treated with Rocephin. Although that was not culture proven to be sensitive to Rocephin follow-up urine analysis showed no growth. He UA is considered clear and UTI treatment complete. Her last paracentesis did not show infection. Patient has a sore at her umbilicus which appeared to be from distention itching and scratching. It does not appear to be infected. She is getting localized wound care The patient has cleared her mentation and she has been counseled regarding hepatic encephalopathy and the need to be compliant with rifaximin and lactulose. Additionally I bumped up her diuretics and she has responded well with no signs of kidney dysfunction. Her blood pressure has improved. We skipped her paracentesis. Weight is down to 88.2 kg and she voided 4000 cc yesterday Physical Exam Narrative: General well-developed well-nourished chronically ill-appearing female in no acute cardiopulmonary stress Skin is agrayish color but not overtly jaundiced Sclera not icteric conjunctiva bilaterally equal minimal erythema no significant discharge CV regular rate and rhythm Lungs clear to auscultation bilaterally Abdomen diminished bowel tones distended obese fluid wave appreciated Calves 1+ to 2 edema Patient is alert and oriented to person place month Umbilicus with shallow healing ulceration no pus Urinary Catheter Management: Patel: Cath Placed During This Visit: yes Reason for Continuing Indwelling Catheter: Other Urinary Catheter Date of Insertion: 12/24/24 Urinary Catheter Time of Insertion: 05:21 Discharge Data Studies Completed and Pending Completed Studies During Hospitalization Category Date Time Status CT cervical spin wo con* [id number] Stat Cat Scan 12/23/24 16:[address] head wo con* [id number] Stat Cat Scan 12/23/24 16:18 Completed XR ankle LT min 3V* [id number] Stat Exams 12/23/24 16:18 Completed XR chest 1V portable [id number] Stat Exams 12/23/24 16:18 Completed XR foot LT min 3V* [id number] Stat Exams 12/23/24 16:18 Com[place] liver [id number] Routine Ultrasound 12/24/24 20:12 Completed Pending at discharge Category Date Time Status Blood Culture Stat Lab 12/23/24 17:28 Results CMP [Comprehensive Metabolic Panel] AM LABS Lab 12/28/24 04:00 Ordered CMP [Comprehensive Metabolic Panel] AM LABS Lab 12/29/24 04:00 Ordered Tick Panel Stat Lab 12/23/24 16:46 Received Radiology Impressions Ankle X-Ray 12/23/24 16:18 IMPRESSION: Significant generalized soft tissue swelling about the ankle with questionable cortical irregularity at the medial aspect of the talus. Recommend clinical correlation for point tenderness to exclude a subtle fracture at this site. Chest X-Ray 12/23/24 16:18 IMPRESSION: Possible interstitial edema and central vascular congestion with suspected small right effusion. Foot X-Ray 12/23/24 16:18 IMPRESSION: No acute findings. Head CT 12/23/24 16:18 IMPRESSION: No acute intracranial abnormality. Cervical Spine CT 12/23/24 16:28 IMPRESSION: No cervical spine fracture is identified. Liver Ultrasound 12/24/24 20:12 IMPRESSION: Cirrhosis and ascites. Laboratory Results WBC 3.93 10^3/uL (3.29-11.43) 12/27/24 03:15 RBC 4.12 10^6/uL (3.85-5.65) 12/27/24 03:15 Hgb 11.40 g/dL (11.27-16.99) 12/27/24 03:15 Hct 35.6 % (36-47) L 12/27/24 03:15 MCV 86.4 fl (85-98) 12/27/24 03:15 MCH 27.7 pg (27-33) 12/27/24 03:15 MCHC 32.0 g/dL (30-55) 12/27/24 03:15 RDW 15.1 % (12.1-15.1) 12/27/24 03:15 Plt Count 112 10^3/cmm (157-399) L 12/27/24 03:15 MPV 12.0 fL (7.4-10.4) H 12/27/24 03:15 Neut % (Auto) 65.3 % 12/27/24 03:15 Lymph % (Auto) 15.0 % 12/27/24 03:15 Drew % (Auto) 13.0 % 12/27/24 03:15 Eos % (Auto) 5.6 % 12/27/24 03:15 Baso % (Auto) 0.8 % 12/27/24 03:15 Neut # (Auto) 2.57 10^3/uL (1.8-7.7) 12/27/24 03:15 Lymph # (Auto) 0.6 10^3/uL (0.8-4.8) L 12/27/24 03:15 Drew # (Auto) 0.5 10^3/uL (0.2-0.9) 12/27/24 03:15 Eos # (Auto) 0.2 10^3/uL (0.0-0.8) 12/27/24 03:15 Baso # (Auto) 0.0 10^3/uL (0.0-0.1) 12/27/24 03:15 Nucleated RBC % (auto) 0 % 12/27/24 03:15 Nucleated RBCs # 0.0 /100WBC 12/27/24 03:15 Sodium 137 mmol/L (136-145) 12/27/24 03:15 Potassium 3.2 mmol/L (3.5-5.1) L 12/27/24 03:15 Chloride 99 mmol/L (98-107) 12/27/24 03:15 Carbon Dioxide 26 mmol/L (22-29) 12/27/24 03:15 Anion Gap 15.2 (5-19) 12/27/24 03:15 BUN 16 mg/dL (6-20) 12/27/24 03:15 Creatinine 0.9 mg/dL (0.5-0.9) 12/27/24 03:15 GFR Calculation 64.5 mL/min (90-130) L 12/27/24 03:15 Glucose 102 mg/dL (65-115) 12/27/24 03:15 Calculated Osmolality 285 mOsm/kg (285-295) 12/27/24 03:15 Calcium 8.0 mg/dL (8.5-10.5) L 12/27/24 03:15 Phosphorus 4.0 mg/dL (2.5-4.5) 12/23/24 22:41 Magnesium 1.6 mg/dL (1.7-2.3) L 12/27/24 03:15 Total Bilirubin 0.9 mg/dL (0.15-1.2) 12/27/24 03:15 AST 49 U/L (0-32) H 12/27/24 03:15 ALT 35 U/L (0-33) H 12/27/24 03:15 Alkaline Phosphatase 116 U/L (35-105) H 12/27/24 03:15 Ammonia 48 umol/L (11-51) 12/23/24 16:18 Total Protein 5.5 g/dL (6.6-8.7) L 12/27/24 03:15 Albumin 2.5 g/dL (3.5-5.2) L 12/27/24 03:15 Globulin 3.0 g/dL (1.3-4.6) 12/27/24 03:15 Lipase 24 U/L (13-60) 12/23/24 16:18 TSH 7.55 uIU/mL (0.27-4.20) H 12/23/24 22:41 Free T4 1.59 ng/dL (0.82-1.77) 12/23/24 22:41 Free T3 3.0 PG/ML (2.0-4.4) 12/23/24 22:41 Urine Color Dark yellow (Yellow) A 12/24/24 14:11 Urine Appearance Cloudy (CLEAR) A 12/24/24 14:11 Urine pH 6.0 (5-7) 12/24/24 14:11 Ur Specific [place] 1.024 (1.005-1.030) 12/24/24 14:11 Urine Protein 2+ (Negative) A 12/24/24 14:11 Urine Glucose (UA) Negative (Normal) 12/24/24 14:11 Urine Ketones Trace (Negative) 12/24/24 14:11 Urine Blood 2+ (Negative) A 12/24/24 14:11 Urine Nitrate Positive (Negative) A 12/24/24 14:11 Urine Bilirubin 2+ (Negative) H 12/24/24 14:11 Urine Urobilinogen 4.0 mg/dL (Negative) H 12/24/24 14:11 Ur Leukocyte Esterase 2+ (Negative) A 12/24/24 14:11 Urine RBC 21-50 /hpf (0-2) H 12/24/24 14:11 Urine WBC >100 /hpf (0-5) H 12/24/24 14:11 Ur Squamous Epith Cells 6-10 /hpf (0-5) 12/24/24 14:11 Amorphous Sediment Not Reportable 12/24/24 14:11 Urine Bacteria None seen /hpf (NONE) 12/24/24 14:11 Hyaline Casts 20.67 /lpf 12/24/24 14:11 Fine Granular Casts 0-4 /lpf H 12/23/24 16:29 Urine Opiates Screen Negative ng/mL (Negative) 12/23/24 16:59 Ur Barbiturates Screen Negative ng/mL (Negative) 12/23/24 16:59 Ur Phencyclidine Scrn Negative ng/mL (Negative) 12/23/24 16:59 Ur Amphetamines Screen Positive ng/mL (Negative) H 12/23/24 16:59 U Benzodiazepines Scrn Negative ng/mL (Negative) 12/23/24 16:59 Urine Cocaine Screen Negative ng/mL (Negative) 12/23/24 16:59 U Marijuana (THC) Screen Negative ng/mL (Negative) 12/23/24 16:59 Lyme Ab ([place]) Not Reportable 12/23/24 16:46 Vitals Last Vital Signs Temp 98.3 F 12/27/24 11:28 Pulse 72 12/27/24 11:28 Resp 17 12/27/24 11:28 BP 125/71 12/27/24 11:28 Pulse Ox 96 12/27/24 11:28 O2 Del Method Room Air 12/27/24 11:28 Discharge Plan Discharge Patient Disposition: Home Condition: Stable Prescriptions: New Lanolin (HPA) 100 % Cream 1 applic topical PRN PRN (Reason: Dryness) Qty: 7 0RF furosemide 40 mg Tablet 40 mg PO BID@0500,1700 Qty: 60 0RF potassium chloride [Klor-Con M20] 20 mEq Tablet,Er Particles/Crystals 40 meq PO BID@0500,1700 Qty: 120 0RF spironolactone 25 mg Tablet 50 mg PO BID@0500,1700 Qty: 60 0RF metolazone 5 mg Tablet 5 mg PO DAILY Qty: 30 0RF levothyroxine 75 mcg Tablet 75 mcg PO QAM Qty: 30 0RF lactulose 10 gram/15 mL Solution 10 g PO TID Qty: 3000 0RF cetirizine 10 mg Tablet 10 mg PO DAILY Qty: 30 0RF Continued hydroxyzine HCl 50 mg tablet 50 mg PO QID PRN (Reason: for sleep or panic attack) Qty: 120 2RF paroxetine HCl 40 mg tablet 40 mg PO DAILY Qty: 30 11RF Xifaxan 550 mg Tablet 550 mg PO BID desvenlafaxine succinate [Pristiq] 25 mg tablet extended release 24 hr 25 mg PO BID Discontinued furosemide 40 mg tablet 40 mg PO DAILY potassium chloride 20 mEq tablet,ER particles/crystals 20 meq PO DAILY Discharge Order = DC NOW: Discharge Order (Routine); Ordered 12/27/24 Ordered By: Rickey Merrill Other Ambulatory Orders: Comprehensive Metabolic Panel (Routine) Timeframe: 1 Week Facility: [facility] - Location: Lab - Main Lab Ordered By: Rickey Merrill Thyroid Stimulating Hormone (Routine) Timeframe: 2 Months Facility: [facility] - Location: Lab - Main Lab Ordered By: Rickey Merrill Referrals: Estrella Gerard FNP [Primary Care Provider, [facility]] - 01/01/25 1:00 pm Discharge Diet: Low Salt Patient Instructions: Hepatic Encephalopathy (GEN), Ascites (GEN), Opioid Safety, Patient Portal & Christoph Instructions Activity Restrictions/Additional Instructions: Take your diuretics as scheduled. Follow-up with labs and your primary care physician in 1 week Take your lactulose as scheduled because you need to have at least 2 loose stools a day to keep from becoming lethargic and confused from your hepatic encephalopathy Weigh yourself on arrival home and then daily. Anticipate that you will lose 2 pounds daily and your abdomen will decrease in size and distention. Follow-up with your primary care physician as your diuretics will need to be adjusted If you are lightheaded and your blood pressure is low then you should skip the metolazone (Zaroxolyn) Discharge Attestations Time Spent in Discharge Care*: greater than 30 min Time Spent in Smoking Cessation: Patient is not a smoker Quality Metrics Clinical Quality Measures [ No reported AMI, CVA or VTE this stay] Coding Level of Care Code 94231 Diagnoses Hepatic encephalopathy K76.82 CODY (acute kidney injury) N17.9 Cirrhosis K74.60 Thrombocytopenia D69.6 Chronic abdominal wound infection S31.109A; L08.9 Abdominal ascites R18.8 Methamphetamine abuse, episodic F15.10 Nutritional deficiency disorder E63.9 Hypothyroidism E03.9 Time Spent (min) 40
--- NOTE | 2024-12-27 13:12 | PC.OT ---
OT TREATMENT HELD TODAY DUE TO SCHEDULED PATIENT D/C
[2024-12-27 15:20] VITALS: BP 125/71; PULSE 72; RESP 17; TEMP 36.8; O2SAT 96
[2024-12-27 16:43] LABS: Lyme AB IGG, Blot NEGATIVE (NEGATIVE)
[2025-01-01 18:29] LABS: RMSF IGG NOT DETECTED; RMSF IGM NOT DETECTED
== END 2024-12-27 14:20 | disposition home or self-care (01) | DRG 433 ==
LOC: ER 18:14 → MEDSURG 18:46
PROVIDERS: Admitting Provider Student in an Organized Health Care Education/Training Program; Emergency Provider Emergency Medicine; PCP Nurse Practitioner Family; Visit Provider Internal Medicine
DX: K74.60 Unspecified cirrhosis of liver (principal); N17.9 Acute kidney failure, unspecified; N39.0 Urinary tract infection, site not specified; K76.82 Hepatic encephalopathy; W57.XXXA Bitten or stung by nonvenomous insect and other nonvenomous arthropods, initial encounter; R01.1 Cardiac murmur, unspecified; D69.6 Thrombocytopenia, unspecified; S31.109A Unspecified open wound of abdominal wall, unspecified quadrant without penetration into peritoneal cavity, initial encounter; L08.9 Local infection of the skin and subcutaneous tissue, unspecified; Z68.32 Body mass index [BMI] 32.0-32.9, adult; E03.9 Hypothyroidism, unspecified; B19.20 Unspecified viral hepatitis C without hepatic coma; Z82.49 Family history of ischemic heart disease and other diseases of the circulatory system; E87.6 Hypokalemia; K59.00 Constipation, unspecified; F41.0 Panic disorder [episodic paroxysmal anxiety]; F32.9 Major depressive disorder, single episode, unspecified; F10.21 Alcohol dependence, in remission; M79.10 Myalgia, unspecified site; W19.XXXA Unspecified fall, initial encounter; M54.2 Cervicalgia; M25.572 Pain in left ankle and joints of left foot; F15.11 Other stimulant abuse, in remission
CPT/HCPCS: 36415; 51702; 70450; 71045; 72125; 73610; 73630; 76705; 80053; 80306; 81001; 82140; 83690; 83735; 84100; 84439; 84443; 84481; 85025; 86618; 86666; 86757; 87040; 87077; 87086; 87186; 93005; 96372; 96374; 96375; 97116; 97161; 97167; 97530; 99285; J0696; J1644; J2270; J2470; J7040; J7120; J9999

== ENCOUNTER 2025-01-02 11:40 | Day surgery (SDC) | payer BC, MEDICAID, SELFPAY ==
[2024-05-17 15:33] VITALS: BP 150/84; BMI 31.3
--- NOTE | 2025-01-02 11:49 | US_ITS ---
WS: [id number] ULTRASOUND-GUIDED PARACENTESIS CLINICAL INFORMATION: decompensated hcv cirrhosis COMPARISON: None. Procedure Informed consent: The risks, benefits, and alternatives of the procedure were discussed with the patient. Verbal and written consent was obtained. Timeout: A timeout was performed to confirm the correct patient, procedure, and site. Preparation: A suitable skin site was identified. The patient was prepped and draped in usual sterile fashion. Lidocaine 1% was used for local anesthesia. Catheter: 4 [place] One-step Flowdockeh catheter. Side: LEFT Lower quadrant. Fluid Volume: 8150 ml Color: clear yellow DISPOSITION: Discarded safely. Complications: None. Patient disposition: Discharged from the department in stable condition. US/[place]acent[place] abd w [id number] IMPRESSION: Uncomplicated ultrasound-guided paracentesis. Removal of 8150cc
[2025-01-02 11:50] VITALS: BP 148/95; PULSE 84; RESP 17; TEMP 36.9; O2SAT 95
[2025-01-02 12:18] VITALS: BMI 32.8
[2025-01-02 12:23] LABS: Hematocrit 38.2 % (36-47); Hemoglobin 12.10 g/dL (11.27-16.99); Mean Corpuscular HGB Conc 31.7 g/dL (30-55); Mean Corpuscular Hemoglobin 27.5 pg (27-33); Mean Corpuscular Volume 86.8 fl (85-98); Nucleated Red Blood Cells % 0 %; Platelet Count 99 10^3/cmm (157-399); Red Blood Count 4.40 10^6/uL (3.85-5.65); White Blood Count 4.25 10^3/uL (3.29-11.43)
[2025-01-02 12:41] LABS: INR 1.20 (0.8-1.2); Prothrombin Time 16.10 SECONDS (12.1-14.9)
[2025-01-02 12:47] LABS: Alanine Aminotransferase 24 U/L (0-33); Albumin Level 2.5 g/dL (3.5-5.2); Alkaline Phosphatase 102 U/L (35-105); Anion Gap 11.9 (5-19); Aspartate Amino Transferase 38 U/L (0-32); Blood Urea Nitrogen 14 mg/dL (6-20); Calcium 8.1 mg/dL (8.5-10.5); Carbon Dioxide 29 mmol/L (22-29); Chloride 97 mmol/L (98-107); Creatinine Clr Calc Pharmacy 76.1496; Globulin 3.4 g/dL (1.3-4.6); Glucose 115 mg/dL (65-115); Osmolality Calculated 281 mOsm/kg (285-295); Sodium 135 mmol/L (136-145); Total Protein 5.9 g/dL (6.6-8.7)
[2025-01-02 12:48] LABS: Potassium 2.9 mmol/L (3.5-5.1)
[2025-01-02 13:04] LABS: Slide Review Slide Review Perform
[2025-01-02] MEDS: ALBUMIN IV (13:46)
[2025-01-02 13:53] LABS: Mononuclear #, Pertinoneal Fl 0.023 10^3/uL; Mononuclear %, Pertinoneal Fl 85.100 %; Polynuclear # Cells, Perit 0.004 10^3/uL; Polynuclear % Cells,Perit 14.900 %; RBC Pertioneal Fluid 0 10^3/uL; WBC Peritoneal Fluid 27 /uL
[2025-01-02 14:00] LABS: Cyto Order Verification No Order
[2025-01-02 14:01] LABS: Appearance, Peritoneal Fluid Clear (Clear); Color, Peritoneal Fluid Yellow (Pale Yellow); Pathology Referral Yes
== END 2025-01-02 14:31 | disposition home or self-care (01) ==
LOC: GILAB 11:41
PROVIDERS: Radiology Neuroradiology; PCP Nurse Practitioner Family; Visit Provider Internal Medicine Gastroenterology
PROC: (CPT 49082; principal; 2025-01-02 12:00)
DX: K74.69 Other cirrhosis of liver (principal)
CPT/HCPCS: 36415; 49083; 80053; 80503; 85025; 85610; 87070; 87075; 87205; 89050; P9047

== ENCOUNTER → 2025-01-05 11:14 | Outpatient (BNVA) | payer BC, MEDICAID, SELFPAY ==
[2024-05-17 15:33] VITALS: BP 150/84; BMI 31.3
== END ==
PROVIDERS: PCP Nurse Practitioner Family; Visit Provider Nurse Practitioner Family
DX: D69.6 Thrombocytopenia, unspecified (principal); E87.6 Hypokalemia
CPT/HCPCS: 85025

== ENCOUNTER 2025-01-09 11:27 | Day surgery (SDC) | payer BC, MEDICAID, SELFPAY ==
[2024-05-17 15:33] VITALS: BP 150/84; BMI 31.3
[2025-01-09 11:45] VITALS: BP 145/84; PULSE 73; RESP 16; TEMP 37.4; O2SAT 98
--- NOTE | 2025-01-09 12:12 | US_ITS ---
WS: [id number] ULTRASOUND-GUIDED THERAPEUTIC AND DIAGNOSTIC PARACENTESIS Procedure, risks, and complications have been explained to the patient. Consent is obtained. Utilizing aseptic technique and 1% buffered lidocaine, a small dermatome was made through which a 5 [place] Yueh catheter was inserted. Approximately 2250 ml of clear peritoneal fluid was obtained without difficulty. No complications encountered. US/US paracentesis abd w [id number] IMPRESSION: Uncomplicated paracentesis yielding 2250 ml of peritoneal fluid.
[2025-01-09 13:01] LABS: Appearance, Peritoneal Fluid Cloudy (Clear); Color, Peritoneal Fluid Yellow (Pale Yellow); Cyto Order Verification No Order; Pathology Referral Yes
[2025-01-09 13:02] LABS: Mononuclear #, Pertinoneal Fl 0.049 10^3/uL; Mononuclear %, Pertinoneal Fl 94.200 %; Polynuclear # Cells, Perit 0.003 10^3/uL; Polynuclear % Cells,Perit 5.800 %; RBC Pertioneal Fluid 1 10^3/uL; WBC Peritoneal Fluid 52 /uL
[2025-01-09 13:26] LABS: INR 1.28 (0.8-1.2); Prothrombin Time 16.80 SECONDS (12.1-14.9)
[2025-01-09 13:34] LABS: Anion Gap 13.0 (5-19); Blood Urea Nitrogen 10 mg/dL (6-20); Calcium 8.1 mg/dL (8.5-10.5); Carbon Dioxide 29 mmol/L (22-29); Chloride 98 mmol/L (98-107); Glucose 110 mg/dL (65-115); Osmolality Calculated 284 mOsm/kg (285-295); Potassium 3.0 mmol/L (3.5-5.1); Sodium 137 mmol/L (136-145)
== END 2025-01-09 13:20 | disposition home or self-care (01) ==
LOC: GILAB 11:28
PROVIDERS: Radiology Diagnostic Radiology; PCP Nurse Practitioner Family; Visit Provider Internal Medicine Gastroenterology
PROC: (CPT 49082; principal; 2025-01-09 12:00)
DX: R18.8 Other ascites (principal); K74.69 Other cirrhosis of liver
CPT/HCPCS: 49083; 80048; 80503; 85610; 87070; 87075; 87205; 89050

== ENCOUNTER 2025-01-13 21:38 | Inpatient (IN) | payer BC, SELFPAY ==
[2024-05-17 15:33] VITALS: BP 150/84; BMI 31.3
[2025-01-13 21:43] VITALS: BP 144/85; PULSE 84; RESP 20; TEMP 36.8; O2SAT 98; BMI 33.6
--- OUTSIDE RECORDS SUMMARY | 2025-01-13 21:43 | XMS_ITS | Clinical Summary ---
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
--- OUTSIDE RECORDS SUMMARY | 2025-01-13 21:44 | XMS_ITS | Clinical Summary ---
Author Organization [facility] Address [address] [facility] [address] [place] [address] Phone Care Team Providers Care Prop Attendant Name Role Phone Moustapha Estrella Kingsley BENSON Primary Care Provider [phone] Allergies Active Allergy Reactions Criticality Noted Date [...] Encounters Date Type Department Care Team Description 01/09/2025 External Device Data ST[facility] ABSTRACTION Provider, Abstract 01/09/2025 External Device Data [facility] ABSTRACTION Provider, Abstract 12/19/2024 External Device Data [facility] ABSTRACTION Provider, Abstract 12/05/2024 External Device Data ST[facility] ABSTRACTION Provider, Abstract 11/14/2024 External Device Data ST[facility] ABSTRACTION Provider, Abstract 11/14/2024 External Device Data ST[facility] ABSTRACTION Provider, Abstract 11/13/2024 Orders Only [facility] [address] [place] [address] [address] [place] [address] Nicci Goodman MD Other ascites (Primary Dx) 11/08/2024 External Device Data STL ABSTRACTION Provider, Abstract 11/02/2024 Telephone [facility] [address] [place] [address] [address] [place] [phone] Hellen Merino NP Advice Only 10/18/2024 External Device Data ST[facility] ABSTRACTION Provider, Abstract 10/18/2024 External Device Data ST[facility] ABSTRACTION Provider, Abstract 10/18/2024 External Device Data STL ABSTRACTION Provider, Abstract 10/18/2024 External Device Data STL ABSTRACTION Provider, Abstract 10/17/2024 External Device Data STL ABSTRACTION Provider, Abstract 10/16/2024 Results Follow-Up [facility] Emergency [facility] [address] [facility] [address] [place] [address] Shireen Mendez RN URINE CULTURE 10/15/2024 2:15 AM CDT - 10/15/2024 12:55 PM CDT Emergency [facility] [address] [facility] [address] [place] [address] Kodi Roman DO Decompensated HCV cirrhosis (CMS/HCC) (Primary Dx); Other ascites; Bilateral lower extremity edema; Hepatic encephalopathy (CMS/HCC); Methamphetamine abuse (CMS/HCC); Abnormal urinalysis Discharge Disposition: [facility] 10/15/2024 - 10/15/2024 11:59 PM CDT Hospital Encounter [facility] Emergency Medical Services [address] [address] Kodi Roman DO Ambulance, [facility] Discharge Disposition: [facility] 10/15/2024 Travel from Last 3 Months Immunizations Immunization Administration [...] st Contact Info) Description 03/16/2025 1:20 PM SOFTWARE LICENSING EXECUTIVE Office Visit [facility] Cancer and Hematology [place] [address] [facility] [address] [place] [address] Anup Arriaga MD [address] [facility] [address] [place] [address] Health Maintenance Due Date Last Done Comments [...] - 2 /hpf 10/15/2024 3:49 AM CDT [facility] RBC UA 3-5(A) 0 - 2 /hpf 10/15/2024 3:49 AM CDT [facility] BACTERIA UA 2+(A) Negative /hpf 10/15/2024 3:49 AM CDT [facility] EPITHELIAL CELLS, URINE 6-10(A) 0 - 5 /hpf 10/15/2024 3:49 AM CDT [facility] Urine URINE SPECIMEN OBTAINED BY CLEAN CATCH PROCEDURE / Unknown Collection / Unknown 10/15/2024 3:35 AM CDT 10/15/2024 3:39 AM CDT us Kodi Y Roman DO URINE ORDERABLES Final Result [facility] CLIA # [id number] [address] [place] [address] * (ABNORMAL) DRUG SCREEN, URINE (10/15/2024 3:35 AM CDT) CANNABINOIDS QUAL, URINE Negative Negative 10/15/2024 3:53 AM CDT [facility] PCP QUAL, URINE Negative Negative 3:53 AM CDT [facility] COCAINE QUAL URINE Negative Negative 2024 3:53 AM CDT [facility] METHAMPHETAMINE QUAL, URINE Presumptive Positive(A) Negative 10/15/2024 3:53 AM CDT [facility] OPIATE QUAL, URINE Negative Negative 2024 3:53 AM CDT [facility] AMPHETAMINE QUAL, URINE Presumptive Positive(A) Negative 10/15/2024 3:53 AM CDT [facility] BENZODIAZEPINE QUAL, URINE Negative Negative 10/15/2024 3:53 AM CDT [facility] TRICYCLICS QUAL, URINE Negative Negative 10/15/2024 3:53 AM CDT [facility] METHADONE QUAL, URINE Negative Negative 10/15/2024 3:53 AM CDT [facility] BARBITURATE QUAL, URINE Negative Negative 10/15/2024 3:53 AM CDT [facility] OXYCODONE QUAL, URINE Negative Negative 10/15/2024 3:53 AM T [facility] Urine URINE SPECIMEN OBTAINED BY CLEAN CATCH PROCEDURE / Unknown Collection / Unknown 10/15/2024 3:35 AM CDT 10/15/2024 3:39 AM CDT Narrative [facility] - 10/15/2024 3:53 AM CDT This test [...] Y Roman DO URINE ORDERABLES Final Result [facility] CLIA # [id number] [address] [place] [address] * (ABNORMAL) URINALYSIS WITH REFLEX MICROSCOPIC (10/15/2024 3:35 AM CDT) COLOR UA Yellow Pale to Dark Yellow 10/15/2024 3:49 AM CDT [facility] CLARITY UA Slightly Cloudy(A) Clear 10/15/2024 3:49 AM T [facility] SPECIFIC GRAVITY UA 1.015 1.003 - 1.035 10/15/2024 3:49 AM T [facility] PH UA 6.0 5.0 - 8.0 10/15/2024 3:49 AM T [facility] LEUKOCYTE ESTERASE UA 2+(A) Negative 10/15/2024 3:49 AM T [facility] NITRITE UA Negative Negative 10/15/2024 3:49 AM CDT [facility] PROTEIN UA 1+(A) Negative 10/15/2024 3:49 AM T [facility] GLUCOSE UA Negative Negative 10/15/2024 3:49 AM CDT [facility] KETONES UA Negative Negative 10/15/2024 3:49 AM CDT [facility] UROBILINOGEN UA 1.0 <2.0 mg/dL 3:49 AM CDT [facility] BILIRUBIN UA 1+(A) Negative 10/15/2024 3:49 AM CDT [facility] BLOOD UA 2+(A) Negative 10/15/2024 3:49 AM CDT [facility] Urine URINE SPECIMEN OBTAINED BY CLEAN CATCH PROCEDURE / Unknown Collection / Unknown 10/15/2024 3:35 AM CDT 10/15/2024 3:39 AM CDT us Kodi Roman DO URINE ORDERABLES Final Result [facility] CLIA # [id number] [address] [place] [address] * (ABNORMAL) URINE CULTURE (10/15/2024 3:35 AM CDT) CULTURE ENTEROCOCCUS FAECALIS(A) FAISAL MCG/ML 10/17/2024 7:25 AM CDT [facility] Urine URINE SPECIMEN OBTAINED BY CLEAN CATCH [...] faecalis NITROFURANTOIN FAISAL MCG/ML <=16 mcg/mL: Susceptible us Matias Hernandez MD MICROBIOLOGY - GENERAL ORDERABL ES Edited Result - Final [facility] CLIA # [id number] [id number] [place] [address] * XR ABDOMEN ACUTE SERIES 2+ VWS [...] ED Physician in the absence of a power bender operator: yes Rate: ECG rate: 68 ECG rate assessment: age appropriate Rhythm: Rhythm Origin: sinus Rhythm morphology: narrow Ectopy: Ectopy origin: PVCs [facility]: QRS axis: Normal Intervals: prolonged QTC interval QRSTT: QRSTT changes: Yes Inferior (RCA) II, III, aVF: Q waves in III. Comments: Artifact noted Kodi Roman DO ECG ORDERABLES Final Result * (ABNORMAL) CBC WITH DIFFERENTIAL (10/15/2024 2:45 AM CDT) WBC 5.5 4.0 - 10.0 K/uL 10/15/2024 2:57 AM [facility] RBC 4.44 3.93 - 5.22 M/uL 10/15/2024 2:57 AM [facility] HEMOGLOBIN 12.3 11.2 - 15.7 g/dL 10/15/2024 2:57 AM [facility] HEMATOCRIT 36.8 34.1 - 44.9 % 10/15/2024 2:57 AM [facility] MCV 82.9 79.4 - 94.8 fL 10/15/2024 2:57 AM [facility] MCH 27.7 25.6 - 32.2 pg 10/15/2024 2:57 AM [facility] MCHC 33.4 32.2 - 35.5 g/dL 10/15/2024 2:57 AM [facility] RDW 14.8(H) 11.0 - 14.5 % 10/15/2024 2:57 AM [facility] RDW-STDEV 44.7 36.9 - 56.9 fL 10/15/2024 2:57 AM [facility] PLATELETS 131(L) 163 - 337 K/uL 10/15/2024 2:57 AM [facility] MPV 11.4 10.0 - 14.8 fL 10/15/2024 2:57 AM [facility] NEUTROPHILS 62 34 - 71 % 10/15/2024 2:57 AM [facility] LYMPHOCYTES 17(L) 19 - 52 % 10/15/2024 2:57 AM [facility] MONOCYTES 17(H) 5 - 13 % 10/15/2024 2:57 AM T [facility] EOSINOPHILS 3 1 - 6 % 10/15/2024 2:57 AM T [facility] BASOPHILS 1 0 - 1 % 10/15/2024 2:57 AM [facility] IMMATURE GRANULOCYTES 1 % 10/15/2024 2:57 AM T [facility] NEUTROPHIL ABSOLUTE 3.41 1.56 - 6.13 K/uL 10/15/2024 2:57 AM T [facility] LYMPHOCYTE ABSOLUTE 0.93(L) 1.20 - 3.40 K/uL 10/15/2024 2:57 AM [facility] MONOCYTE ABSOLUTE 0.93(H) 0.24 - 0.36 K/uL 10/15/2024 2:57 AM [facility] EOSINOPHIL ABSOLUTE 0.15 0.04 - 0.36 K/uL 10/15/2024 2:57 AM [facility] BASOPHILS ABSOLUTE 0.05 0.01 - 0.08 K/uL 10/15/2024 2:57 AM [facility] IMMATURE GRANULOCYTES ABSOLUTE 0.03 K/uL 10/15/2024 2:57 AM [facility] Blood Collection / Unknown 10/15/2024 2:45 AM CDT 10/15/2024 2:51 AM CDT us Kodi Y Roman DO HEMATOLOGY ORDERABLES Final Resu lt [facility] CLIA # [id number] [address] [place] [address] * (ABNORMAL) BRAIN NATRIURETIC PEPTIDE, BNP OR PROBNP (10/15/2024 2:45 AM CDT) PROBNP, N TERMINAL 1,727(H) 0 - 125 pg/mL 10/15/2024 3:10 AM T [facility] Comment: INTERPRETIVE COMMENT based on diagnosis: Diagnostic [...] ORDERABLES Final Resul t Performing Organization Address City/[facility] Co de Phone Number [facility] CLIA # [id number] [address] [place] [address] * MAGNESIUM LEVEL (10/15/2024 2:45 AM CDT) MAGNESIUM 2.0 1.6 - 2.6 mg/dL 10/15/2024 3:10 AM CDT [facility] Blood Collection / Unknown 10/15/2024 2:45 AM CDT 10/15/2024 2:51 AM CDT us Kodi Y Jessie DO CHEMISTRY ORDERABLES Final Resul t Performing Organization Address City/[facility]/ZIP Co de Phone Number [facility] CLIA # [id number] [address] [place] [phone] * (ABNORMAL) LIPASE (10/15/2024 2:45 AM CDT) LIPASE 98(H) 13 - 60 U/L 10/15/2024 3:10 AM CDT [facility] Blood Collection / Unknown 10/15/2024 2:45 AM CDT 10/15/2024 2:51 AM CDT us Kodi Y Roman DO CHEMISTRY ORDERABLES Final Resul t Performing Organization Address City/[facility]/ZIP Co de Phone Number [facility] CLIA # [id number] [address] [place] [phone] * (ABNORMAL) AMMONIA LEVEL (10/15/2024 2:45 AM CDT) AMMONIA 111.0(H) 11.0 - 51.0 umol/L 10/15/2024 3:14 AM CDT [facility] Blood, venous Collection / Unknown 10/15/2024 2:45 AM CDT 10/15/2024 2:51 AM CDT us Kodi Y Roman DO CHEMISTRY ORDERABLES Final Resul t Performing Organization Address [facility] de Phone Number [facility] CLIA # [id number] [address] [place] [address] * ETHANOL LEVEL (10/15/2024 2:45 AM CDT) ETHANOL <10.10 <10.10 mg/dL 10/15/2024 3:10 AM CDT [facility] ETHANOL % <0.01 %w/v 10/15/2024 3:10 AM CDT [facility] Blood Collection / Unknown 10/15/2024 2:45 AM CDT 10/15/2024 2:51 AM CDT us Kodi Y Roman DO CHEMISTRY ORDERABLES Final Resul t Performing Organization Address City/[facility] Co de Phone Number [facility] CLIA # [id number] [address] [place] [phone] * (ABNORMAL) COMPREHENSIVE METABOLIC PANEL (10/15/2024 2:45 AM CDT) SODIUM 134(L) 136 - 145 mmol/L 10/15/2024 3:10 AM [facility] POTASSIUM 4.1 3.5 - 5.1 mmol/L 10/15/2024 3:10 AM [facility] CHLORIDE 101 98 - 107 mmol/L 10/15/2024 3:10 AM [facility] CO2 23 22 - 29 mmol/L 10/15/2024 3:10 AM [facility] CALCIUM 8.8 8.6 - 10.0 mg/dL 10/15/2024 3:10 AM [facility] BUN 20 6 - 20 mg/dL 10/15/2024 3:10 AM [facility] CREATININE 1.51(H) 0.51 - 0.95 mg/dL 10/15/2024 3:10 AM [facility] GLUCOSE 97 74 - 99 mg/dL 10/15/2024 3:10 AM [facility] TOTAL PROTEIN 6.2(L) 6.6 - 8.7 g/dL 10/15/2024 3:10 AM [facility] ALBUMIN 2.8(L) 3.5 - 5.2 g/dL 10/15/2024 3:10 AM [facility] BILIRUBIN TOTAL 1.6(H) 0.0 - 1.2 mg/dL 10/15/2024 3:10 AM [facility] ALKALINE PHOSPHATASE 105(H) 35 - 104 U/L 10/15/2024 3:10 AM [facility] AST 61(H) 0 - 35 U/L 10/15/2024 3:10 AM [facility] ALT 27 0 - 35 U/L 10/15/2024 3:10 AM [facility] GFR 40(L) >=60 mL/min/1.7 3 sq meter 10/15/2024 3:10 AM [facility] Comment:eGFR calculated with 2020 CKD-EPI equation. Vegetarian diet, extremely high or low muscle mass, and may affect results. Cystatin C with Glomerular Filtration Rate is a suitable alternative for these patients. ANION GAP 10 5 - 20 mmol/L 10/15/2024 3:10 AM CDT [facility] Blood Collection / Unknown 10/15/2024 2:45 AM CDT 10/15/2024 2:51 AM CDT us Kodiannie Roman DO CHEMISTRY ORDERABLES Final Resul t [facility] CLIA # [id number] [address] [place] [address] * COLONOSCOPY REPORT (09/29/2023 2:57 PM CDT) Narrative Procedure Note Steven Francis MD - 09/29/2023 2:57 PM CDT [facility] GI Patient Name: Sandy Ernandez Procedure [...] Most Recently Relevant to Health Maintenance Insurance [facility] MEDICAID Advance Directives For more information, please contact: [phone] * Full Code (Latest Code Status on File) Date Activated Date Inactivated Comments 09/29/2023 1:00 PM 09/29/2023 5:24 PM Care Teams Prop Attendant Relationship Specialty Start Date End Date Estrella Gerard FNP [address] [place] [address] PCP - General Nurse Practitioner Family 05/18/21
--- OUTSIDE RECORDS SUMMARY | 2025-01-13 21:44 | XMS_ITS | Encounter Summary ---
Author Organization [facility] Address [address] [place] [address] Care Team Providers Care Director Engineering Name Role Phone Estrella Gerard Primary Care Provider [phone] Encounter Details Date Type Department Care Team ([facility] Contact Info) Description 01/09/2025 External Device Data [facility] ABSTRACTION [...] Upcoming Encounters Date Type Department Care Team ([facility] Contact Info) Description 03/16/2025 1:20 PM DINING ROOM CAPTAIN Office Visit [facility] Cancer and Hematology [place] [address] [facility] [address] [place] [address] Anup Arriaga MD [address] [facility] [address] [place] [address] documented as of this encounter Visit Diagnoses Not on filedocumented in this encounter Care Teams Director Engineering Relationship Specialty Start Date End Date Estrella Gerard FNP [address] [place] [phone] PCP - General Nurse Practitioner Family 05/18/21 documented as of this encounter
--- OUTSIDE RECORDS SUMMARY | 2025-01-13 21:44 | XMS_ITS | Encounter Summary ---
Author Organization [facility] Address [address] [place] [address] Care Team Providers Care Technical Solutions Consultant Name Role Phone Estrella Gerard Primary Care Provider [phone] Encounter Details Date Type Department Care Team ([facility] Contact Info) Description 01/09/2025 External Device Data [...] Upcoming Encounters Date Type Department Care Team ([facility] Contact Info) Description 03/16/2025 1:20 PM CARBON DIOXIDE OPERATOR Office Visit [facility] Cancer and Hematology [place] [address] [facility] [address] [place] [address] Anup Arriaga MD [address] [facility] [address] [place] [address] documented as of this encounter Visit Diagnoses Not on filedocumented in this encounter Care Teams Technical Solutions Consultant Relationship Specialty Start Date End Date Estrella Gerard FNP [address] [place] [phone] PCP - General Nurse Practitioner Family 05/18/21 documented as of this encounter
[2025-01-14] VITALS (18 sets, daily range): BP systolic 112–167; BP diastolic 72–105; PULSE 71–84; RESP 12–20; TEMP 36.6–36.9; O2SAT 91–100; BMI 35.4; BMI 36.1
[2025-01-14 01:01] LABS: Glucose Urine UA Norm (Normal); Nitrate Urine Negative (Negative); Specific Gravity, Urine 1.010 (1.005-1.030)
[2025-01-14 01:06] LABS: Add Urine Microscopic? YES; UA Manual Slide Review YES
--- NOTE | 2025-01-14 01:10 | CTR_ITS ---
PROCEDURE INFORMATION: Exam: CT Abdomen And Pelvis With Contrast Exam date and time: 01/14/2025 1:34 AM Age: 59 years old Clinical indication: Abdominal pain; Generalized; PT has routine paracentesis; Additional info: Abd pain and bloating TECHNIQUE: Imaging protocol: Computed tomography of the abdomen and pelvis with contrast. Radiation optimization: All CT scans at this facility use at least one of these dose optimization techniques: automated exposure control; mA and/or kV adjustment per patient size (includes targeted exams where dose is matched to clinical indication); or iterative reconstruction. Contrast material: OMNIPAQUE 350; Contrast volume: 100 ml; Contrast route: INTRAVENOUS (IV); COMPARISON: CT abdomen pelvis wo con [id number] 11/01/2024 11:27 AM RADIATION DOSE METRICS: Total DLP (mGy-cm): 1024.13 FINDINGS: Lung bases: Interval development of new pulmonary nodules in the right middle lobe as well as in the lingula is noted. These nodules are incompletely imaged A moderate-sized right-sided pleural effusion is stable. Liver: The liver is cirrhotic. Splenomegaly is present. There is a large volume of ascites. Recanalization of the paraumbilical vein is noted. Esophageal varices are noted. Patency of the splenic and portal veins is noted. No mass. Gallbladder and biliary ducts: Cholecystectomy. No ductal dilation. Pancreas: Normal. No ductal dilation. Spleen: Splenomegaly is present. Perisplenic varices are noted. 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 Adrenal glands: Normal. No mass. Kidneys and ureters: There is a 5 mm calculus at the left UPJ. Mild hydronephrosis associated with the left kidney is present. These findings are unchanged on interval comparison. Stomach and bowel: Colonic diverticulosis. No evidence of acute diverticulitis.. Appendix: No evidence of appendicitis. Intraperitoneal space: Unremarkable. No free air. No significant fluid collection. Vasculature: Unremarkable. No abdominal aortic aneurysm. Lymph nodes: Unremarkable. No enlarged lymph nodes. Urinary bladder: Unremarkable as visualized. Reproductive: Unremarkable as visualized. Bones/joints: There is mild stable compression of the upper endplate of L4. Degenerative disc disease is most notable at L5-S1. No acute fracture. Soft tissues: Varices are noted to be extending through the subcutaneous tissues of the anterior abdominal wall. Stable anasarca. CT/CT abdomen pelvis w con* [id number] IMPRESSION: 1. There are new pulmonary nodules in the right middle lobe as well as in the lingula. Metastatic disease is would be a consideration. A complete CT examination of the chest is recommended for further evaluation. 2. Advanced cirrhosis with ancillary findings which are detailed above. This includes the presence of a moderate-sized right-sided pleural effusion and massive ascites along with the presence of varices. Associated anasarca is present. 3. There is a 5 mm calculus at the left UPJ with mild obstructive changes associated with the left kidney. Stable findings are noted on the patient's prior examination without appreciable change.
[2025-01-14 01:33] LABS: Hematocrit 36.1 % (36-47); Hemoglobin 11.70 g/dL (11.27-16.99); Mean Corpuscular HGB Conc 32.4 g/dL (30-55); Mean Corpuscular Hemoglobin 27.0 pg (27-33); Mean Corpuscular Volume 83.4 fl (85-98); Nucleated Red Blood Cells % 0 %; Platelet Count 127 10^3/cmm (157-399); Red Blood Count 4.33 10^6/uL (3.85-5.65); White Blood Count 3.79 10^3/uL (3.29-11.43)
[2025-01-14 01:42] LABS: INR 1.21 (0.8-1.2); Prothrombin Time 16.20 SECONDS (12.1-14.9)
[2025-01-14] MEDS: iohexol 350 mg/mL 500 mL Btl (per mL) IV ×2 (01:43→18:04)
[2025-01-14 01:50] LABS: Lactic Sepsis W/Reflex 1.7 mmol/L (0.5-2.2); Lipase 61 U/L (13-60)
[2025-01-14 01:51] LABS: Alanine Aminotransferase 15 U/L (0-33); Albumin Level 2.9 g/dL (3.5-5.2); Alkaline Phosphatase 154 U/L (35-105); Anion Gap 13.0 (5-19); Aspartate Amino Transferase 33 U/L (0-32); Blood Urea Nitrogen 10 mg/dL (6-20); Calcium 8.3 mg/dL (8.5-10.5); Carbon Dioxide 27 mmol/L (22-29); Chloride 98 mmol/L (98-107); Creatinine Clr Calc Pharmacy 86.7794; Globulin 3.5 g/dL (1.3-4.6); Glucose 112 mg/dL (65-115); Osmolality Calculated 280 mOsm/kg (285-295); Potassium 3.0 mmol/L (3.5-5.1); Sodium 135 mmol/L (136-145); Total Protein 6.4 g/dL (6.6-8.7)
[2025-01-14 01:52] LABS: Ammonia 97 umol/L (11-51)
[2025-01-14] MEDS: ondansetron 2 mg/ML SDV 2 mL 4 MG IVP ×3 (01:54→21:28)
[2025-01-14] MEDS: morphine 4 mg/mL SDV 1 mL IVP (01:56)
--- NOTE | 2025-01-14 02:51 | ED_ITS ---
HPI - Abdominal Pain 2 General: Chief Complaint: Abdominal Pain Stated Complaint: ABD Pain Swelling Time Seen by Provider: 01/14/25 01:01 History of Present Illness: Patient is a 59-year-old female with a history of cirrhosis who presents with complaints of abdominal distention and severe pain. She reports her abdomen is significantly bloated, causing difficulty breathing. The patient has been experiencing pain for the past two days and reports vomiting earlier in the week. She receives weekly paracentesis procedures every Wednesday for management of ascites. During her most recent paracentesis, only 2 liters of fluid were drained, which is significantly less than her usual 5-8 liters. The patient's caregiver notes that the patient's current abdominal distention is much greater than her typical presentation. The patient was attempting to manage at home until her next scheduled paracentesis but has become increasingly uncomfortable, prompting today's visit. She also mentions numbness from her toe to her ankle following a fall approximately four weeks ago. Related Data Home Medications ?Medication ?Instructions ?Recorded ?Confirmed rifaximin 550 mg tablet (Xifaxan) 550 mg PO BID 01/14/25 Previous Rx's ?Medication ?Instructions ?Recorded hydroxyzine HCl 50 mg tablet 50 mg PO QID PRN for slee p or 10/10/24 panic attack #120 tabs paroxetine HCl 40 mg tablet 40 mg PO DAILY #30 tabs cetirizine 10 mg tablet 10 mg PO DAILY #30 tabs 12/05 07/28 furosemide 40 mg tablet 40 mg PO BID@0500,1700 #60 t abs 12/27/24 lactulose 10 gram/15 mL oral 10 g (15 mL) PO TID #3,00 0 mL 12/27/24 solution levothyroxine 75 mcg tablet 75 mcg PO QAM #30 tabs metolazone 5 mg tablet 5 mg PO DAILY #30 tabs 12/27 modified lanolin 100 % topical 1 applic topical PRN SD N Dryness 12/27/24 cream (Lanolin (HPA)) #7 grams potassium chloride 20 mEq 40 meq (2 x 20 mEq) PO 12/27 tablet,extended BID@0500,1700 #120 tabs release(part/cryst) (Klor-Con M) spironolactone 25 mg tablet 50 mg (2 x 25 mg) PO BID@0 500,1700 12/27/24 #60 tabs Allergies Allergy/AdvReac Type Severity Reaction Status Date / Time tramadol Allergy ADR-Nausea Verified 01/09/25 11:44 NSAIDS (Non-Steroidal AdvReac Unknown Verified 01/09/25 11:44 Anti-Inflamma PFSH ED 2 PFSH: Medical History (Updated 01/14/25 @ 02:52 by Beny Webb DO) Hypothyroidism Hepatic encephalopathy SBP (spontaneous bacterial peritonitis) History of nephrolithiasis Methamphetamine abuse, episodic Celiac disease Cirrhosis Enterococcus UTI Thrombocytopenia S/P abdominal paracentesis Hepatitis C Family History Mother Hypertension Family/Other Hypertension Denies family history of Diabetes CAD (coronary artery disease) Cancer Social History Smoking and tobacco/nicotine status: never used tobacco/nicotine Second hand smoke exposure: Yes Alcohol intake: former Former alcohol use details: 25 years ago Substance/Drug Use: former Former substance use details: 5-6 years ago Adopted: No Caregiver/support person: No Lives independently: Yes Household members: friend(s) Housing: House Marital status: Marital status details: while in penitentiary, never met him outside of penitentiary Number of children: 2 Number of grandchildren: 5 Highest education level completed: Some College, No Degree service: No Current occupational status: disabled Current occupation: working on getting disability Current occupational exposures/hazards: No Pets and animals: Yes Pets & animals: dog(s) Leisure activites: other Leisure activities details: watch movies and play with grand kids Sexually active: No Do you think of yourself as: Straight/Heterosexual Current gender identity: Female Lauren/Synagogue: [employer] Special lauren needs: No Agree to transfusion: Yes Female Reproductive History: Para: 2 Physical Exam 2 Const: COMMON NORMALS: no acute distress GENERAL APPEARANCE: cooperative, ill appearing and frail appearing HENMT: COMMON NORMALS: normocephalic, atraumatic and Normal external nose present HEAD & SCALP: normocephalic and atraumatic FACE & SINUS: normal facial exam and face symmetric NOSE: Normal external nose present Eye: COMMON NORMALS: Equal, round and reactive pupils present and EOMs intact bilaterally PUPIL: Yes Equal, round and reactive pupils present Neck/C-Spine: GENERAL: Yes trachea midline Chest: CHEST: Yes Symmetrical chest wall rise Resp: COMMON NORMALS: clear to auscultation bilaterally EFFORT & INSPECTION: Yes tachypneic AUSCULTATION: clear to auscultation bilaterally Cardio: COMMON NORMALS: regular rate and regular rhythm RATE: regular rate RHYTHM: regular rhythm GI: INSPECTION: Yes Abdominal wall edema and Yes abdominal distension P ALPATION: Yes Tenderness to palpation present (GI) (diffuse) and Yes Guarding due to palpation present (GI) Extremity: COMMON NORMALS: no pedal edema Neuro: RUBA COMA SCALE: document GCS findings [place] coma scale eye opening: Spontaneous [place] coma scale verbal response: Orientated Ruba coma scale motor response: Obey commands [place] coma scale total score: 15 S ENSORY EXAM: Yes extremities (intact) Psych: COMMON NORMALS: speech normal SPEECH: Yes normal speech Course 2 Vital Signs: Vital signs: Vital Signs Temperature 97.8 F 01/14/25 04:38 Pulse Rate 78 01/14/25 04:38 Respiratory Rate 20 H 01/14/25 05:06 Blood Pressure 127/76 01/14/25 04:38 Pulse Oximetry 98 01/14/25 05:06 Oxygen Delivery Me thod Room Air 01/14/25 04:38 MDM - Abdominal Pain Medical Decision Making Vitals are stable. CBC shows a platelet count of 127 otherwise normal. Potassium is 3.0 and BMP otherwise nonactionable. Lipase is mildly elevated at 61. CRP is 4.7. Bilirubin is 1.3. Urinalysis sample is mildly contaminated. It does show white blood cells of 40-55. CT shows large volume ascites. There is presence of varices. She has not had any gastrointestinal bleeding. Spoke with the hospitalist. We will observe the patient. Hopefully paracentesis ultrasound-guided Wednesday. Lab Data 01/13/25 01:00 01/13/25 01:00 Labs/Radiology: Radiology Impressions Abdomen/Pelvis CT 01/14/25 01:10 IMPRESSION: 1. There are new pulmonary nodules in the right middle lobe as well as in the lingula. Metastatic disease is would be a consideration. A complete CT examination of the chest is recommended for further evaluation. 2. Advanced cirrhosis with ancillary findings which are detailed above. This includes the presence of a moderate-sized right-sided pleural effusion and massive ascites along with the presence of varices. Associated anasarca is present. 3. There is a 5 mm calculus at the left UPJ with mild obstructive changes associated with the left kidney. Stable findings are noted on the patient's prior examination without appreciable change. Laboratory Results WBC 3.79 10^3/uL (3.29-11.43) 01/13/25 01:00 RBC 4.33 10^6/uL (3.85-5.65) 01/13/25 01:00 Hgb 11.70 g/dL (11.27-16.99) 01/13/25 01:00 Hct 36.1 % (36-47) 01/13/25 01:00 MCV 83.4 fl (85-98) L 01/13/25 01:00 MCH 27.0 pg (27-33) 01/13/25 01:00 MCHC 32.4 g/dL (30-55) 01/13/25 01:00 RDW 14.5 % (12.1-15.1) 01/13/25 01:00 Plt Count 127 10^3/cmm (157-399) L 01/13/25 01:00 MPV 11.4 fL (7.4-10.4) H 01/13/25 01:00 Neut % (Auto) 58.3 % 01/13/25 01:00 Lymph % (Auto) 23.7 % 01/13/25 01:00 [place] % (Auto) 12.7 % 01/13/25 01:00 Eos % (Auto) 3.7 % 01/13/25 01:00 Baso % (Auto) 1.3 % 01/13/25 01:00 Neut # (Auto) 2.21 10^3/uL (1.8-7.7) 01/13/25 01:00 Lymph # (Auto) 0.9 10^3/uL (0.8-4.8) 01/13/25 01:00 [place] # (Auto) 0.5 10^3/uL (0.2-0.9) 01/13/25 01:00 Eos # (Auto) 0.1 10^3/uL (0.0-0.8) 01/13/25 01:00 Baso # (Auto) 0.1 10^3/uL (0.0-0.1) 01/13/25 01:00 Nucleated RBC % (auto) 0 % 01/13/25 01:00 Nucleated RBCs # 0.0 /100WBC 01/13/25 01:00 PT 16.20 SECONDS (12.1-14.9) H 01/14/25 01:00 INR 1.21 (0.8-1.2) H 01/14/25 01:00 Sodium 135 mmol/L (136-145) L 01/13/25 01:00 Potassium 3.0 mmol/L (3.5-5.1) L 01/13/25 01:00 Chloride 98 mmol/L (98-107) 01/13/25 01:00 Carbon Dioxide 27 mmol/L (22-29) 01/13/25 01:00 Anion Gap 13.0 (5-19) 01/13/25 01:00 BUN 10 mg/dL (6-20) 01/13/25 01:00 Creatinine 0.8 mg/dL (0.5-0.9) 01/13/25 01:00 GFR Calculation 73.9 mL/min (90-130) L 01/13/25 01:00 Glucose 112 mg/dL (65-115) 01/13/25 01:00 Calculated Osmolality 280 mOsm/kg (285-295) L 01/13/25 01:00 Lactic Acid 1.7 mmol/L (0.5-2.2) 01/14/25 01:00 Calcium 8.3 mg/dL (8.5-10.5) L 01/13/25 01:00 Total Bilirubin 1.3 mg/dL (0.15-1.2) H 01/13/25 01:00 AST 33 U/L (0-32) H 01/13/25 01:00 ALT 15 U/L (0-33) 01/13/25 01:00 Alkaline Phosphatase 154 U/L (35-105) H 01/13/25 01:00 Ammonia 97 umol/L (11-51) H 01/13/25 01:00 C-Reactive Protein 4.7 mg/L (0.0-4.9) 01/14/25 01:00 Total Protein 6.4 g/dL (6.6-8.7) L 01/13/25 01:00 Albumin 2.9 g/dL (3.5-5.2) L 01/13/25 01:00 Globulin 3.5 g/dL (1.3-4.6) 01/13/25 01:00 Lipase 61 U/L (13-60) H 01/14/25 01:00 Urine Color Yellow (Yellow) 01/14/25 00:41 Urine Appearance Clear (CLEAR) 01/14/25:41 Urine pH 6 (5-7) 01/14/25 00:41 Ur Specific [place] 1.010 (1.005-1.030) 01/14/25 00:41 Urine Protein Neg (Negative) 01/14/25: Urine Glucose (UA) Norm (Normal) 01/14/25: Urine Ketones Negative (Negative) 01/14/25 00:41 Urine Blood 2+ (Negative) H 01/14/25 00:41 Urine Nitrate Negative (Negative) 01/14/25 00: Urine Bilirubin Neg (Negative) 01/14/25 00: Urine Urobilinogen Norm mg/dL (Negative) 01/14/25 00:41 Ur Leukocyte Esterase Trace (Negative) H 01/14/25 00:41 Urine RBC 6-10 /hpf (0-2) 01/14/25 00:41 Urine WBC 40-55 /hpf (0-5) H 01/14/25 00:41 Ur Squamous Epith Cells 6-10 /hpf (0-5) 01/14/25 00: Amorphous Sediment Not Reportable 01/14/25: Urine Bacteria 1+ /hpf (NONE) H 01/14/25 00:41 Hyaline Casts >100 /lpf H 01/14/25 00:41 All radiology interpretation(s) finalized by discharge Discharge Plan Discharge Patient Disposition: Placed in Observation Admit Provider: Celeste Hopkins Clinical Impression: Abdominal ascites, Cirrhosis Coding Level of Care Code ED Printing Supplies Sales Representative for Vera Freeman
--- NOTE | 2025-01-14 04:40 | PM.HP ---
Providers/Chief Complaint Admitting Physician: Celeste Hopkins MD--- patient seen and evaluated after 12 midnight Primary Care Provider: MARCELINO Rodrigez Chief Complaint: ABD Pain Swelling History of Present Illness Sandy Ernandez is a 59 year old female with end-stage liver disease who was supposed to be on liver transplant but because she goes through. [facility] and then not doing well this had delayed placing patient on liver transplant. This patient had to come up here and have paracentesis every Wednesday and weekly and to drain 5 to 8 L of ascites fluid. Last week they only drained 2 L because the catheter stopped draining for that reason it was not properly drained and patient had to come in this morning because of worsening ascites could not relax or breathe comfortably. Patient has a large ascites and also pleural effusion there are no sign of infection anywhere patient needed to be drained. Her belly is as big as a twin uterus. Patient will be drained tomorrow. I have ordered CT-guided paracentesis this can always be changed to ultrasound what ever that is Wednesday radiology. Review of Systems Narrative: Patient is not confused pretty much alert awake oriented system review we are unremarkable except for worsening belly ascites and being very uncomfortable with this. Medications/Allergies Home Medications ?Medication ?Instructions ?Recorded ?Confirmed ?Last Taken ?Type rifaximin 550 mg tablet (Xifaxan) 550 mg PO BID 12/10/23 01/14/25 01/08/25 History hydroxyzine HCl 50 mg tablet 50 mg PO QID PRN for sleep or 10/10/24 01/14/25 01/08/25 Rx panic attack #120 tabs paroxetine HCl 40 mg tablet 40 mg PO DAILY #30 tabs 10/10/24 01/14/25 01/08/25 Rx cetirizine 10 mg tablet 10 mg PO DAILY #30 tabs 12/27/24 01/14/25 01/08/25 Rx furosemide 40 mg tablet 40 mg PO BID@0500,1700 #60 tabs 12/27/24 01/14/25 01/08/25 Rx lactulose 10 gram/15 mL oral 10 g (15 mL) PO TID #3,000 mL 12/27/24 01/14/25 01/08/25 Rx solution levothyroxine 75 mcg tablet 75 mcg PO QAM #30 tabs 12/27/24 01/14/25 01/08/25 Rx metolazone 5 mg tablet 5 mg PO DAILY #30 tabs 12/27/24 01/14/25 01/08/25 Rx modified lanolin 100 % topical 1 applic topical PRN PRN Dryness 12/27/24 01/14/25 Unknown Rx cream (Lanolin (HPA)) #7 grams potassium chloride 20 mEq 40 meq (2 x 20 mEq) PO 12/27/24 01/14/25 01/09/25 Rx tablet,extended BID@0500,1700 #120 tabs release(part/cryst) (Klor-Con M) spironolactone 25 mg tablet 50 mg (2 x 25 mg) PO BID@0500,1700 12/27/24 01/14/25 01/08/25 Rx #60 tabs Allergies Allergy/AdvReac Type Severity Reaction Status Date / Time tramadol Allergy ADR-Nausea Verified 01/09/25 11:44 NSAIDS (Non-Steroidal AdvReac Unknown Verified 01/09/25 11:44 Anti-Inflamma PFSH Acute PFSH: Medical History Hypothyroidism Hepatic encephalopathy SBP (spontaneous bacterial peritonitis) History of nephrolithiasis Methamphetamine abuse, episodic Celiac disease Cirrhosis Enterococcus UTI Thrombocytopenia S/P abdominal paracentesis Hepatitis C Family History Mother Hypertension Family/Other Hypertension Denies family history of Diabetes CAD (coronary artery disease) Cancer Social History Smoking and tobacco/nicotine status: never used tobacco/nicotine Second hand smoke exposure: Yes Alcohol intake: former Former alcohol use details: 25 years ago Substance/Drug Use: former Former substance use details: 5-6 years ago Adopted: No Caregiver/support person: No Lives independently: Yes Household members: friend(s) Housing: House Marital status: Marital status details: while in long-term, never met him outside of long-term Number of children: 2 Number of grandchildren: 5 Highest education level completed: Some College, No Degree service: No Current occupational status: disabled Current occupation: working on getting disability Current occupational exposures/hazards: No Pets and animals: Yes Pets & animals: dog(s) Leisure activites: other Leisure activities details: watch movies and play with grand kids Sexually active: No Do you think of yourself as: Straight/Heterosexual Current gender identity: Female Lauren/Protestant: Orthodox Special lauren needs: No Agree to transfusion: Yes Female Reproductive History: Para: 2 Vitals/I&O/Wt Last Vital Signs Temp 98.5 F 01/14/25 03:59 Pulse 76 01/14/25 03:59 Resp 20 H 01/14/25 03:59 BP 167/90 01/14/25 03:59 Pulse Ox 98 01/14/25 03:59 O2 Del Method Room Air 01/14/25 03:59 Weight last 48 hrs Weight 96.4 kg Weight 96.4 kg Weight 91.626 kg Physical Exam Narrative: Generally patient looks okay but very uncomfortable with huge abdominal circumference because of expanding ascites. HEENT normocephalic atraumatic neck neck is supple cardiovascular heart rate is regular lungs are pretty much clear abdomen soft very extensive ascites the size of a twin uterus unremarkable extremities are intact no edema has good pulses neurology no focality lab studies lab studies very normal for CBC and CMP. Data 01/13/25 01:00 01/14/25 01:00 A&P Assessment and plan 1. Abdominal ascites: 2. Pleural effusion associated with hepatic disorder: Plan: Large ascites with pleural effusion - CT-guided paracentesis has been ordered - Patient with ascites fluid to be drained between 5 and 8 L tomorrow - Patient returns to have this drained weekly for the past 1 year, patient cannot drain less than 5 L at the time or else patient comes back the next day - As this drains properly pleural effusion will reduce as well. PDMP PDMP Reviewed: Not Reviewed Attestations Medical Necessity Statement*: Patient with abdominal ascites so extensive with pleural effusion from liver disorder need at least 2 midnights to further optimize and drain the ascites. Coding Level of Care Code 61938 Diagnoses Abdominal ascites R18.8 Pleural effusion associated with hepatic disorder K76.9; J91.8 Time Spent (min) 60
[2025-01-14] MEDS: lactulose oral liq 20 gm/30 mL UDC 10 GM PO (05:06)
[2025-01-14] MEDS: morphine 4 mg/mL SDV 1 mL 2 MG IVP ×2 (05:06→12:45)
[2025-01-14 05:50] LABS: Blood Urea Nitrogen 11 mg/dL (6-20); Creatinine Clr Calc Pharmacy 80.1309
--- OUTSIDE RECORDS SUMMARY | 2025-01-14 09:44 | XMS_ITS | Encounter Summary ---
Author Organization [facility] Address 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
--- OUTSIDE RECORDS SUMMARY | 2025-01-14 09:44 | XMS_ITS | Clinical Summary ---
Author Organization [facility] Address [address] [place] [address] Phone Care Team Providers Care Senior Planning Analyst Name Role Phone Unavailable Primary Care Provider [...] (2 - Td or Tdap) 05/18/[address] [place] [address] [place] [address] NETWORK
--- OUTSIDE RECORDS SUMMARY | 2025-01-14 09:44 | XMS_ITS | Clinical Summary ---
Author Organization [facility] Address [address] [facility] [address] [place] [address] Phone Care Team Providers Care Dry Cleaner Apprentice Name Role Phone Moustapha Estrella Kingsley BENSON Primary Care Provider [phone] Allergies Active Allergy Reactions Criticality Noted Date [...] STL ABSTRACTION Provider, Abstract 11/13/2024 Orders Only [facility] [address] [place] [address] [address] [place] [address] Nicci Goodman MD Other ascites (Primary Dx) 11/08/2024 External Device Data STL ABSTRACTION Provider, Abstract 11/02/2024 Telephone [facility] [address] [place] [address] [address] [place] [id number] Hellen Merino NP Advice Only 10/18/2024 External Device Data STL ABSTRACTION Provider, Abstract 10/18/2024 External Device Data STL ABSTRACTION Provider, Abstract 10/18/2024 External Device Data STL ABSTRACTION Provider, Abstract 10/18/2024 External Device Data STL ABSTRACTION Provider, Abstract 10/17/2024 External Device Data STL ABSTRACTION Provider, Abstract 10/16/2024 Results Follow-Up [facility] Emergency [facility] [address] [facility] [address] [place] [address] Shireen Mendez RN URINE CULTURE 10/15/2024 2:15 AM CDT - 10/15/2024 12:55 PM CDT [facility] [address] [facility] [address] [place] [address] Kodi Roman DO Decompensated HCV cirrhosis (CMS/HCC) (Primary Dx); Other ascites; Bilateral lower extremity edema; Hepatic encephalopathy (CMS/HCC); Methamphetamine abuse (CMS/HCC); Abnormal urinalysis Discharge Disposition: [facility] 10/15/2024 - 10/15/2024 11:59 PM CDT Hospital Encounter [facility] [address] [address] Kodi Roman DO Ambulance, [facility] Discharge Disposition: [facility] 10/15/2024 Travel from Last 3 Months [...] st Contact Info) Description 03/16/2025 1:20 PM COOK CANDY Office Visit [facility] [place] [address] [facility] 2 [place] [address] Anup Arriaga MD [address] [facility] [address] [place] [address] Health Maintenance Due Date Last [...] - 2 /hpf 10/15/2024 3:49 AM CDT [facility] RBC UA 3-5(A) 0 - 2 /hpf 10/15/2024 3:49 AM CDT [facility] BACTERIA UA 2+(A) Negative /hpf 10/15/2024 3:49 AM CDT [facility] EPITHELIAL CELLS, URINE 6-10(A) 0 - 5 /hpf 10/15/2024 3:49 AM CDT [facility] Urine URINE SPECIMEN OBTAINED BY CLEAN CATCH PROCEDURE / Unknown Collection / Unknown 10/15/2024 3:35 AM CDT 10/15/2024 3:39 AM CDT us Kodi Y Roman DO URINE ORDERABLES Final Result [facility] CLIA # [id number] [address] [place] [address] * (ABNORMAL) DRUG SCREEN, URINE (10/15/2024 3:35 AM CDT) CANNABINOIDS QUAL, URINE Negative Negative 10/15/2024 3:53 AM CDT [facility] PCP QUAL, URINE Negative Negative 3:53 AM CDT [facility] COCAINE QUAL URINE Negative Negative 2024 3:53 AM CDT [facility] METHAMPHETAMINE QUAL, URINE Presumptive Positive(A) Negative 10/15/2024 3:53 AM CDT [facility] OPIATE QUAL, URINE Negative Negative 2024 3:53 AM CDT [facility] AMPHETAMINE QUAL, URINE Presumptive Positive(A) Negative 10/15/2024 3:53 AM CDT [facility] BENZODIAZEPINE QUAL, URINE Negative Negative 10/15/2024 3:53 AM CDT [facility] TRICYCLICS QUAL, URINE Negative Negative 10/15/2024 3:53 AM CDT [facility] METHADONE QUAL, URINE Negative Negative 10/15/2024 3:53 AM CDT [facility] BARBITURATE QUAL, URINE Negative Negative 10/15/2024 3:53 AM CDT [facility] OXYCODONE QUAL, URINE Negative Negative 10/15/2024 3:53 AM T [facility] Urine URINE SPECIMEN OBTAINED BY CLEAN CATCH PROCEDURE / Unknown Collection / Unknown 10/15/2024 3:35 AM CDT 10/15/2024 3:39 AM CDT Narrative [facility] - 10/15/2024 3:53 AM CDT This [...] Y Roman DO URINE ORDERABLES Final Result [facility] CLIA # [id number] [address] [place] [address] * (ABNORMAL) URINALYSIS WITH REFLEX MICROSCOPIC (10/15/2024 3:35 AM CDT) COLOR UA Yellow Pale to Dark Yellow 10/15/2024 3:49 AM CDT [facility] CLARITY UA Slightly Cloudy(A) Clear 10/15/2024 3:49 AM T [facility] SPECIFIC GRAVITY UA 1.015 1.003 - 1.035 10/15/2024 3:49 AM T [facility] PH UA 6.0 5.0 - 8.0 10/15/2024 3:49 AM T [facility] LEUKOCYTE ESTERASE UA 2+(A) Negative 10/15/2024 3:49 AM T [facility] NITRITE UA Negative Negative 10/15/2024 3:49 AM CDT [facility] PROTEIN UA 1+(A) Negative 10/15/2024 3:49 AM T [facility] GLUCOSE UA Negative Negative 10/15/2024 3:49 AM CDT [facility] KETONES UA Negative Negative 10/15/2024 3:49 AM CDT [facility] UROBILINOGEN UA 1.0 <2.0 mg/dL 3:49 AM CDT [facility] BILIRUBIN UA 1+(A) Negative 10/15/2024 3:49 AM CDT [facility] BLOOD UA 2+(A) Negative 10/15/2024 3:49 AM CDT [facility] Urine URINE SPECIMEN OBTAINED BY CLEAN CATCH PROCEDURE / Unknown Collection / Unknown 10/15/2024 3:35 AM CDT 10/15/2024 3:39 AM CDT us Kodi Roman DO URINE ORDERABLES Final Result [facility] CLIA # [id number] [address] [place] [address] * (ABNORMAL) URINE CULTURE (10/15/2024 3:35 AM CDT) CULTURE ENTEROCOCCUS FAECALIS(A) FAISAL MCG/ML 10/17/2024 7:25 AM CDT [facility] Urine URINE SPECIMEN OBTAINED BY CLEAN [...] GENERAL ORDERABL ES Edited Result - Final [facility] CLIA # [id number] [id number] [place] [address] * XR ABDOMEN ACUTE SERIES 2+ VWS [...] ED Physician in the absence of a unemployment specialist: yes Rate: ECG rate: 68 ECG rate assessment: age appropriate Rhythm: Rhythm Origin: sinus Rhythm morphology: narrow Ectopy: Ectopy origin: PVCs [place]: QRS axis: Normal Intervals: prolonged QTC interval QRSTT: QRSTT changes: Yes Inferior (RCA) II, III, aVF: Q waves in III. Comments: Artifact noted Kodi Roman DO ECG ORDERABLES Final Result * (ABNORMAL) CBC WITH DIFFERENTIAL (10/15/2024 2:45 AM CDT) WBC 5.5 4.0 - 10.0 K/uL 10/15/2024 2:57 AM [facility] RBC 4.44 3.93 - 5.22 M/uL 10/15/2024 2:57 AM [facility] HEMOGLOBIN 12.3 11.2 - 15.7 g/dL 10/15/2024 2:57 AM [facility] HEMATOCRIT 36.8 34.1 - 44.9 % 10/15/2024 2:57 AM [facility] MCV 82.9 79.4 - 94.8 fL 10/15/2024 2:57 AM [facility] MCH 27.7 25.6 - 32.2 pg 10/15/2024 2:57 AM [facility] MCHC 33.4 32.2 - 35.5 g/dL 10/15/2024 2:57 AM [facility] RDW 14.8(H) 11.0 - 14.5 % 10/15/2024 2:57 AM [facility] RDW-STDEV 44.7 36.9 - 56.9 fL 10/15/2024 2:57 AM [facility] PLATELETS 131(L) 163 - 337 K/uL 10/15/2024 2:57 AM [facility] MPV 11.4 10.0 - 14.8 fL 10/15/2024 2:57 AM [facility] NEUTROPHILS 62 34 - 71 % 10/15/2024 2:57 AM [facility] LYMPHOCYTES 17(L) 19 - 52 % 10/15/2024 2:57 AM [facility] MONOCYTES 17(H) 5 - 13 % 10/15/2024 2:57 AM T [facility] EOSINOPHILS 3 1 - 6 % 10/15/2024 2:57 AM T [facility] BASOPHILS 1 0 - 1 % 10/15/2024 2:57 AM [facility] IMMATURE GRANULOCYTES 1 % 10/15/2024 2:57 AM T [facility] NEUTROPHIL ABSOLUTE 3.41 1.56 - 6.13 K/uL 10/15/2024 2:57 AM T [facility] LYMPHOCYTE ABSOLUTE 0.93(L) 1.20 - 3.40 K/uL 10/15/2024 2:57 AM [facility] MONOCYTE ABSOLUTE 0.93(H) 0.24 - 0.36 K/uL 10/15/2024 2:57 AM [facility] EOSINOPHIL ABSOLUTE 0.15 0.04 - 0.36 K/uL 10/15/2024 2:57 AM [facility] BASOPHILS ABSOLUTE 0.05 0.01 - 0.08 K/uL 10/15/2024 2:57 AM [facility] IMMATURE GRANULOCYTES ABSOLUTE 0.03 K/uL 10/15/2024 2:57 AM [facility] Blood Collection / Unknown 10/15/2024 2:45 AM CDT 10/15/2024 2:51 AM CDT us Kodi Y Roman DO HEMATOLOGY ORDERABLES Final Resu lt [facility] CLIA # [id number] [address] [place] [address] * (ABNORMAL) BRAIN NATRIURETIC PEPTIDE, BNP OR PROBNP (10/15/2024 2:45 AM CDT) PROBNP, N TERMINAL 1,727(H) 0 - 125 pg/mL 10/15/2024 3:10 AM T [facility] Comment: INTERPRETIVE COMMENT based on diagnosis: [...] t Performing Organization Address City/[facility] Co de Phone Number [facility] CLIA # [id number] [address] [place] [address] * MAGNESIUM LEVEL (10/15/2024 2:45 AM CDT) MAGNESIUM 2.0 1.6 - 2.6 mg/dL 10/15/2024 3:10 AM CDT [facility] Blood Collection / Unknown 10/15/2024 2:45 AM CDT 10/15/2024 2:51 AM CDT us Kodi Y Jessie DO CHEMISTRY ORDERABLES Final Resul t Performing Organization Address City/[facility]/ZIP Co de Phone Number [facility] CLIA # [id number] [address] [place] [address] * (ABNORMAL) LIPASE (10/15/2024 2:45 AM CDT) LIPASE 98(H) 13 - 60 U/L 10/15/2024 3:10 AM CDT [facility] Blood Collection / Unknown 10/15/2024 2:45 AM CDT 10/15/2024 2:51 AM CDT us Kodi Y Roman DO CHEMISTRY ORDERABLES Final Resul t Performing Organization Address City/[facility]/ZIP Co de Phone Number [facility] CLIA # [id number] [address] [place] [address] * (ABNORMAL) AMMONIA LEVEL (10/15/2024 2:45 AM CDT) AMMONIA 111.0(H) 11.0 - 51.0 umol/L 10/15/2024 3:14 AM CDT [facility] Blood, venous Collection / Unknown 10/15/2024 2:45 AM CDT 10/15/2024 2:51 AM CDT us Kodi Y Roman DO CHEMISTRY ORDERABLES Final Resul t Performing Organization Address [facility] de Phone Number [facility] CLIA # [id number] [address] [place] [address] * ETHANOL LEVEL (10/15/2024 2:45 AM CDT) ETHANOL <10.10 <10.10 mg/dL 10/15/2024 3:10 AM CDT [facility] ETHANOL % <0.01 %w/v 10/15/2024 3:10 AM CDT [facility] Blood Collection / Unknown 10/15/2024 2:45 AM CDT 10/15/2024 2:51 AM CDT us Kodi Y Roman DO CHEMISTRY ORDERABLES Final Resul t Performing Organization Address City/[facility] Co de Phone Number [facility] CLIA # [id number] [address] [place] [address] * (ABNORMAL) COMPREHENSIVE METABOLIC PANEL (10/15/2024 2:45 AM CDT) SODIUM 134(L) 136 - 145 mmol/L 10/15/2024 3:10 AM [facility] POTASSIUM 4.1 3.5 - 5.1 mmol/L 10/15/2024 3:10 AM [facility] CHLORIDE 101 98 - 107 mmol/L 10/15/2024 3:10 AM [facility] CO2 23 22 - 29 mmol/L 10/15/2024 3:10 AM [facility] CALCIUM 8.8 8.6 - 10.0 mg/dL 10/15/2024 3:10 AM [facility] BUN 20 6 - 20 mg/dL 10/15/2024 3:10 AM [facility] CREATININE 1.51(H) 0.51 - 0.95 mg/dL 10/15/2024 3:10 AM [facility] GLUCOSE 97 74 - 99 mg/dL 10/15/2024 3:10 AM [facility] TOTAL PROTEIN 6.2(L) 6.6 - 8.7 g/dL 10/15/2024 3:10 AM [facility] ALBUMIN 2.8(L) 3.5 - 5.2 g/dL 10/15/2024 3:10 AM [facility] BILIRUBIN TOTAL 1.6(H) 0.0 - 1.2 mg/dL 10/15/2024 3:10 AM [facility] ALKALINE PHOSPHATASE 105(H) 35 - 104 U/L 10/15/2024 3:10 AM [facility] AST 61(H) 0 - 35 U/L 10/15/2024 3:10 AM [facility] ALT 27 0 - 35 U/L 10/15/2024 3:10 AM [facility] GFR 40(L) >=60 mL/min/1.7 3 sq meter 10/15/2024 3:10 AM [facility] Comment:eGFR calculated with 2020 CKD-EPI equation. Vegetarian diet, extremely high or low muscle mass, and may affect results. Cystatin C with Glomerular Filtration Rate is a suitable alternative for these patients. ANION GAP 10 5 - 20 mmol/L 10/15/2024 3:10 AM CDT [facility] Blood Collection / Unknown 10/15/2024 2:45 AM CDT 10/15/2024 2:51 AM CDT us Kodiannie Roman DO CHEMISTRY ORDERABLES Final Resul t [facility] CLIA # [id number] [address] [place] [address] * COLONOSCOPY REPORT (09/29/2023 2:57 PM CDT) Narrative Procedure Note Steven Francis MD - 09/29/2023 2:57 PM CDT [facility] GI Patient Name: Sandy Ernandez Procedure [...] 2:39:39 PM Scope Out: 2:52:28 PM [address] [place], [place] Steven Francis MD GI PROCEDURE ORDERABLES F inal Result from Last 3 Months or Most Recently Relevant to Health Maintenance Insurance [facility] MEDICAID Advance Directives For more information, please contact: [phone] * Full Code (Latest Code Status on File) Date Activated Date Inactivated Comments 09/29/2023 1:00 PM 09/29/2023 5:24 PM Care Teams Dry Cleaner Apprentice Relationship Specialty Start Date End Date Estrella Gerard FNP [address] [place] [address] PCP - General Nurse Practitioner Family 05/18/21
--- OUTSIDE RECORDS SUMMARY | 2025-01-14 09:44 | XMS_ITS | Encounter Summary ---
Author Organization [facility] Address 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
--- NOTE | 2025-01-14 10:09 | PC.NURSE ---
Patient's Left upper arm IV occluded. Removed this IV. Attempted new start but unable to obtain. Informed Dr Abdul. Waiting for US guided IV.
[2025-01-14 11:05] LABS: Hematocrit 38.5 % (36-47); Hemoglobin 12.10 g/dL (11.27-16.99); Mean Corpuscular HGB Conc 31.4 g/dL (30-55); Mean Corpuscular Hemoglobin 27.1 pg (27-33); Mean Corpuscular Volume 86.3 fl (85-98); Nucleated Red Blood Cells % 0 %; Platelet Count 128 10^3/cmm (157-399); Red Blood Count 4.46 10^6/uL (3.85-5.65); White Blood Count 3.51 10^3/uL (3.29-11.43)
[2025-01-14 11:13] LABS: Glucose Urine UA Norm (Normal); Nitrate Urine Negative (Negative); Specific Gravity, Urine 1.020 (1.005-1.030)
[2025-01-14 11:24] LABS: Alanine Aminotransferase 21 U/L (0-33); Albumin Level 2.9 g/dL (3.5-5.2); Alkaline Phosphatase 169 U/L (35-105); Anion Gap 15.2 (5-19); Aspartate Amino Transferase 48 U/L (0-32); Blood Urea Nitrogen 13 mg/dL (6-20); Calcium 8.3 mg/dL (8.5-10.5); Carbon Dioxide 24 mmol/L (22-29); Chloride 99 mmol/L (98-107); Creatinine Clr Calc Pharmacy 80.1309; Globulin 3.5 g/dL (1.3-4.6); Glucose 147 mg/dL (65-115); Magnesium 1.7 mg/dL (1.7-2.3); Osmolality Calculated 283 mOsm/kg (285-295); Potassium 3.2 mmol/L (3.5-5.1); Sodium 135 mmol/L (136-145); Total Protein 6.4 g/dL (6.6-8.7)
--- NOTE | 2025-01-14 15:50 | P.PN_ITS ---
Subjective 2 Subjective: She has liver cirrhosis with recurrent ascites. She gets large-volume paracentesis done weekly and Tuesdays. Only 2 L of ascitic fluid was drained last week. She typically gets 5 to 8 L drained. She has had worsening abdominal distention and pain associated with that. Medications: Reviewed: Yes Vitals/I&O/Wt Last Vital Signs Temp 98.0 F 01/14/25 07:40 Pulse 84 01/14/25 12:00 Resp 20 H 01/14/25 12:45 BP 148/105 01/14/25 12:00 Pulse Ox 96 01/14/25 12:00 O2 Del Method Room Air 01/14/25 04:38 01/14/25 01/14/25 01/14/25 06:59 14:59 22:59 Intake Total 240 / 240 Output Total 900 / 900 Balance -660 / -660 Weight last 48 hrs Weight 98.5 kg Weight 96.4 kg Weight 96.4 kg Weight 91.626 kg Physical Exam 2 Narrative: GEN: Alert, no acute distress HEENT: Normocephalic, atraumatic, PERRLA Neck: Supple Respiratory: Clear to auscultation bilaterally Cardio: Regular rate and rhythm, S1, S2, no murmur noted Abdomen: Firm, distended, nontender, normoactive bowel sounds Extremity: Warm, positive edema Skin: No rash or lesion Data 01/14/25 10:27 01/14/25 10:27 A&P Assessment and plan 1. 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 Abdominal ascites: Recurrent abdominal ascites from liver cirrhosis Usually gets 5 to 8 L of ascitic fluid removed weekly; only 2 L removed last week Ultrasound paracentesis ordered 3. 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 Hypokalemia: Repleted, monitor 5. Pulmonary nodule: New pulmonary nodules noted in the RML and lingula on CT abdomen pelvis Radiology recommended CT chest, will order 6. Nephrolithiasis: 5 mm calculus noted in the left UPJ with mild nephrolithiasis noted on CT AP; no change from CTAP done in October on admission appears to be contaminated She states that she has an appointment to see urology in February 09. Hypothyroidism: Levothyroxine 8. Celiac disease: Gluten-free diet Plan: SCDs for DVT prophylaxis Full code PDMP PDMP Reviewed: Not Reviewed Attestations 2 Medical Necessity Statement*: She has continued hospitalization for ultrasound paracentesis. I do not expect her care to cross 2 midnights. Coding Level of Care Code Acute Code for Chg Fwd Diagnoses Cirrhosis K74.60 Abdominal ascites R18.8 Thrombocytopenia D69.6 Hypokalemia E87.6 Pulmonary nodule R91.1 Nephrolithiasis N20.0 Hypothyroidism E03.9 Celiac disease K90.0
--- NOTE | 2025-01-14 17:28 | CTR_ITS ---
PROCEDURE INFORMATION: Exam: CT Chest With Contrast; Diagnostic Exam date and time: 01/14/2025 5:59 PM Age: 59 years old Clinical indication: Abnormal findings; Other: -pulmonary nodules seen on CT a/p; Additional info: Pulmonology nodule seen on CT ap TECHNIQUE: Imaging protocol: Diagnostic computed tomography of the chest with contrast. Radiation optimization: All CT scans at this facility use at least one of these dose optimization techniques: automated exposure control; mA and/or kV adjustment per patient size (includes targeted exams where dose is matched to clinical indication); or iterative reconstruction. Contrast material: [id number]; Contrast volume: 67 ml; Contrast route: INTRAVENOUS (IV); COMPARISON: CR (CHEST, ) 12/23/2024 5:09 PM RADIATION DOSE METRICS: Total DLP (mGy-cm): 469.56 FINDINGS: Thyroid: Visualized portions of the thyroid are homogeneous. Lungs: There are several basilar pulmonary nodules which were seen on earlier abdomen and pelvis CT, largest of which is in the right middle lobe measuring 1.1 cm maximal diameter. Additional nodule noted in the superior segment left lower lobe. Tracheobronchomalacia noted. Bronchial wall thickening likely reflects bronchovascular interstitial edema. There is atelectasis in the right lower lobe which could obscure additional pathology. Pleural spaces: Non loculated moderate right pleural effusion is slightly more dense than water. No pneumothorax on either side. Heart: Mild cardiomegaly. There is thinning of the left apical myocardium. Coronary arteries: No significant coronary artery calcification. Esophagus: Small sliding hiatal hernia with mild thickening of the distal esophagus. Lymph nodes: No mediastinal, axillary, or supraclavicular adenopathy. Vasculature: Normal caliber thoracic aorta with bovine branching pattern. No evidence of acute aortic dissection. Patent branch vessels. Pulmonary venous congestion is noted. . Normal caliber pulmonary artery tree without large or central filling defect. Liver: Images through the upper abdomen demonstrates cirrhosis, splenomegaly, and ascites. Bones/joints: No acute fracture or destructive lesion. Soft tissues: Body wall edema is noted along the left flank. CT/CT chest w con* [id number] IMPRESSION: 1. Scattered pulmonary nodules are noted with largest measuring 1.1 cm in diameter. For patients at low risk (minimal or absent history of smoking and of other known risk factors), recommend CT Chest at 3-6 months, then consider CT Chest at 18-24 months. For patients at high risk (history of smoking or of other known risk factors), recommend CT Chest at 3-6 months, then CT Chest at 18-24 months. (Reference: Mark) 2. Cardiomegaly, right pleural effusion, and pulmonary venous distension are noted, suggesting some degree of heart failure. Mild bronchovascular interstitial edema noted. REFERENCES: Mark Wilder, et al. Guidelines for Management of Incidental Pulmonary Nodules Detected on CT Images: From the Fleischner Society 2017. Radiology. 2017;284(1):228-243.
[2025-01-15] VITALS (9 sets, daily range): BP systolic 130–153; BP diastolic 70–87; PULSE 74–87; RESP 16–18; TEMP 36.7–37; O2SAT 95–97
[2025-01-15] MEDS: morphine 4 mg/mL SDV 1 mL 2 MG IVP (02:38)
[2025-01-15] MEDS: ondansetron 2 mg/ML SDV 2 mL 4 MG IVP (04:22)
[2025-01-15] MEDS: lactulose oral liq 20 gm/30 mL UDC 10 GM PO (04:26)
--- NOTE | 2025-01-15 07:41 | PC.NURSE ---
Patient c/o persistent nausea with vomiting and dry heaves. Informed Dr Farnsworth and received telephone order for scopalamine patch which was administered as ordered.
[2025-01-15 11:29] LABS: Hematocrit 35.7 % (36-47); Hemoglobin 11.10 g/dL (11.27-16.99); Mean Corpuscular HGB Conc 31.1 g/dL (30-55); Mean Corpuscular Hemoglobin 26.9 pg (27-33); Mean Corpuscular Volume 86.4 fl (85-98); Nucleated Red Blood Cells % 0 %; Platelet Count 128 10^3/cmm (157-399); Red Blood Count 4.13 10^6/uL (3.85-5.65); White Blood Count 4.19 10^3/uL (3.29-11.43)
[2025-01-15 11:52] LABS: Alanine Aminotransferase 18 U/L (0-33); Albumin Level 2.7 g/dL (3.5-5.2); Alkaline Phosphatase 142 U/L (35-105); Anion Gap 16.2 (5-19); Aspartate Amino Transferase 40 U/L (0-32); Blood Urea Nitrogen 16 mg/dL (6-20); Calcium 8.2 mg/dL (8.5-10.5); Carbon Dioxide 24 mmol/L (22-29); Chloride 97 mmol/L (98-107); Creatinine Clr Calc Pharmacy 59.5102; Globulin 3.5 g/dL (1.3-4.6); Glucose 126 mg/dL (65-115); Magnesium 1.7 mg/dL (1.7-2.3); Osmolality Calculated 281 mOsm/kg (285-295); Potassium 3.2 mmol/L (3.5-5.1); Sodium 134 mmol/L (136-145); Total Protein 6.2 g/dL (6.6-8.7)
--- NOTE | 2025-01-15 13:20 | PC.NURSE ---
Paracentesis performed by Dr Carreon. Patient tolerating well. Sample sent to lab. Currently draining clear, yellow fluid. No sediment observed no foul odors present.
[2025-01-15 14:03] LABS: Apprearance, Body Fluid CLEAR; Color, Body Fluid YELLOW
[2025-01-15 14:04] LABS: Cyto Order Verification Order Verified; Fluid Laterality PARACENTESIS; PATH Referral YES
[2025-01-15 14:10] LABS: Body Fluid Polynuclear #Cells 0.004; Monocytes # Body Fluid 0.024; Mononuclear WBC Body Fluid % 85.700 %; Polynuclear WBC Body Fluid % 14.300 %
--- NOTE | 2025-01-15 14:21 | PC.NURSE ---
S/P paracentesis. Patient total of 7800ml removed of clear, yellow fluid. Patient tolerated well. Denies pain or needs. Informed Dr Farnsworth and received onetime order for 25% Albumin IV.
[2025-01-15 14:29] LABS: Fluid Alkaline Phos. 13 IU/L
[2025-01-15] MEDS: albumin 25 G/100 ML BAG 60 G IV (14:29)
--- NOTE | 2025-01-15 14:45 | P.DS_ITS ---
Discharge Providers Date of Admission: 01/14/25 04:53 Date of Discharge: January 15, 2025 Attending Provider at Admission: Celeste Hopkins MD Attending Provider at Discharge: Keaton Farnsworth MD Primary Care Provider: MARCELINO Rodrigez Diagnoses at Discharge Discharge Diagnosis 1. Cirrhosis: 2. Abdominal ascites: 3. Thrombocytopenia: 4. Hypokalemia: 5. Pulmonary nodule: 6. Nephrolithiasis: 7. Hypothyroidism: 8. Celiac disease: Reason for Visit Reason for Visit: ABD Pain Swelling Brief History: Per CLIFF Ernandez is a 59 year old female with end-stage liver disease who was supposed to be on liver transplant but because she goes through. Of wellness and then not doing well this had delayed placing patient on liver transplant. This patient had to come up here and have paracentesis every Wednesday and weekly and to drain 5 to 8 L of ascites fluid. Last week they only drained 2 L because the catheter stopped draining for that reason it was not properly drained and patient had to come in this morning because of worsening ascites could not relax or breathe comfortably. Patient has a large ascites and also pleural effusion there are no sign of infection anywhere patient needed to be drained. Her belly is as big as a twin uterus. Patient will be drained tomorrow. I have ordered CT-guided paracentesis this can always be changed to ultrasound what ever that is Wednesday radiology. Hospital Course Hospital Course Patient was admitted [facility] for further evaluation and management of abdominal pain in setting of tense ascites. Radiology was consulted and she underwent par acentesis on 01/15 and overall 7.8 L of fluid was removed. Fluid studies were negative for concern for peritonitis. Cultures are pending. She has been discharged in medically stable condition. Discharge Data Studies Completed and Pending Completed Studies During Hospitalization Category Date Time Status CT abdomen pelvis w con* [id number] Urgent Cat Scan 01/14/25 01:[address] chest w con* [id number] Routine Cat Scan 01/14/25 17:28 Completed Pending at discharge Category Date Time Status Amylase, Peritoneal Fluid Routine Lab 01/15/25 13:15 Received Anaerobic Culture Routine Lab 01/15/25 13:15 Received Body Fluid Culture & GS Routine Lab 01/15/25 13:15 Received Mycobacteria, Culture w/Fluor Routine Lab 01/15/25 13:15 Received Urine Culture Stat Lab 01/14/25 00:41 Results Cytology [PTH] Routine Pth 01/15/25 09:56 [place] w [id number] Routine Ultrasound 01/15/25 15:52 Taken Radiology Impressions Abdomen/Pelvis CT 01/14/25 01:10 IMPRESSION: 1. There are new pulmonary nodules in the right middle lobe as well as in the lingula. Metastatic disease is would be a consideration. A complete CT examination of the chest is recommended for further evaluation. 2. Advanced cirrhosis with ancillary findings which are detailed above. This includes the presence of a moderate-sized right-sided pleural effusion and massive ascites along with the presence of varices. Associated anasarca is present. 3. There is a 5 mm calculus at the left UPJ with mild obstructive changes associated with the left kidney. Stable findings are noted on the patient's prior examination without appreciable change. Chest CT 01/14/25 17:28 IMPRESSION: 1. Scattered pulmonary nodules are noted with largest measuring 1.1 cm in diameter. For patients at low risk (minimal or absent history of smoking and of other known risk factors), recommend CT Chest at 3-6 months, then consider CT Chest at 18-24 months. For patients at high risk (history of smoking or of other known risk factors), recommend CT Chest at 3-6 months, then CT Chest at 18-24 months. (Reference: Mark) 2. Cardiomegaly, right pleural effusion, and pulmonary venous distension are noted, suggesting some degree of heart failure. Mild bronchovascular interstitial edema noted. REFERENCES: Mark H, et al. Guidelines for Management of Incidental Pulmonary Nodules Detected on CT Images: From the Fleischner Society 2017. Radiology. 2017;284(1):228-243. Laboratory Results WBC 4.19 10^3/uL (3.29-11.43) 01/15/25 11:21 RBC 4.13 10^6/uL (3.85-5.65) 01/15/25 11:21 Hgb 11.10 g/dL (11.27-16.99) L 01/15/25 11:21 Hct 35.7 % (36-47) L 01/15/25 11:21 MCV 86.4 fl (85-98) 01/15/25 11:21 MCH 26.9 pg (27-33) L 01/15/25 11:21 MCHC 31.1 g/dL (30-55) 01/15/25 11:21 RDW 14.5 % (12.1-15.1) 01/15/25 11:21 Plt Count 128 10^3/cmm (157-399) L 01/15/25 11:21 MPV 11.3 fL (7.4-10.4) H 01/15/25 11:21 Neut % (Auto) 71.2 % 01/15/25 11:21 Lymph % (Auto) 15.5 % 01/15/25 11:21 [place] % (Auto) 9.8 % 01/15/25 11:21 Eos % (Auto) 2.1 % 01/15/25 11:21 Baso % (Auto) 1.2 % 01/15/25 11: Neut # (Auto) 2.98 10^3/uL (1.8-7.7) 01/15/25 11:21 Lymph # (Auto) 0.7 10^3/uL (0.8-4.8) L 01/15/25 11:21 [place] # (Auto) 0.4 10^3/uL (0.2-0.9) 01/15/25 11:21 Eos # (Auto) 0.1 10^3/uL (0.0-0.8) 01/15/25 11:21 Baso # (Auto) 0.1 10^3/uL (0.0-0.1) 01/15/25 11:21 Nucleated RBC % (auto) 0 % 01/15/25 11:21 Nucleated RBCs # 0.0 /100WBC 01/15/25 11:21 Differential Comment Yes 01/15/25 13:15 PT 16.20 SECONDS (12.1-14.9) H 01/14/25 01:00 INR 1.21 (0.8-1.2) H 01/14/25 01:00 Sodium 134 mmol/L (136-145) L 01/15/25 11:21 Potassium 3.2 mmol/L (3.5-5.1) L 01/15/25 11:21 Chloride 97 mmol/L (98-107) L 01/15/25 11:21 Carbon Dioxide 24 mmol/L (22-29) 01/15/25 11:21 Anion Gap 16.2 (5-19) 01/15/25 11:21 BUN 16 mg/dL (6-20) 01/15/25 11:21 Creatinine 1.2 mg/dL (0.5-0.9) H 01/15/25 11:21 GFR Calculation 46.3 mL/min (90-130) L 01/15/25 11:21 Glucose 126 mg/dL (65-115) H 01/15/25 11:21 Calculated Osmolality 281 mOsm/kg (285-295) L 01/15/25 11:21 Lactic Acid 1.7 mmol/L (0.5-2.2) 01/14/25 01:00 Calcium 8.2 mg/dL (8.5-10.5) L 01/15/25 11:21 Phosphorus 3.6 mg/dL (2.5-4.5) 01/15/25 11:21 Magnesium 1.7 mg/dL (1.7-2.3) 01/15/25 11:21 Total Bilirubin 2.0 mg/dL (0.15-1.2) H 01/15/25 11:21 AST 40 U/L (0-32) H 01/15/25 11:21 ALT 18 U/L (0-33) 01/15/25 11:21 Alkaline Phosphatase 142 U/L (35-105) H 01/15/25 11:21 Ammonia 97 umol/L (11-51) H 01/13/25 01:00 C-Reactive Protein 4.7 mg/L (0.0-4.9) 01/14/25 01:00 Total Protein 6.2 g/dL (6.6-8.7) L 01/15/25 11:21 Albumin 2.7 g/dL (3.5-5.2) L 01/15/25 11:21 Globulin 3.5 g/dL (1.3-4.6) 01/15/25 11:21 Lipase 61 U/L (13-60) H 01/14/25 01:00 Urine Color Dark yellow (Yellow) A 01/14/25 10:10 Urine Appearance Cloudy (CLEAR) A 01/14/25 10:10 Urine pH 5 (5-7) 01/14/25 10:10 Ur Specific [place] 1.020 (1.005-1.030) 01/14/25 10:10 Urine Protein 1+ (Negative) H 01/14/25 10:10 Urine Glucose (UA) Norm (Normal) 01/14/25 10:10 Urine Ketones Negative (Negative) 01/14/25 10:10 Urine Blood 3+ (Negative) H 01/14/25 10:10 Urine Nitrate Negative (Negative) 01/14/25 10:10 Urine Bilirubin 1+ (Negative) H 01/14/25 10:10 Urine Urobilinogen 8 mg/dL (Negative) H 01/14/25 10:10 Ur Leukocyte Esterase Trace (Negative) H 01/14/25 10:10 Urine RBC 5-10 /hpf (0-2) H 01/14/25 10:10 Urine WBC 15-25 /hpf (0-5) H 01/14/25 10:10 Ur Squamous Epith Cells 5-10 /hpf (0-5) H 01/14/25 10:10 Amorphous Sediment Not Reportable 01/14/25 10:10 Urine Bacteria 1+ /hpf (NONE) H 01/14/25 10:10 Hyaline Casts >100 /lpf H 01/14/25 00:41 Fluid Color Yellow 01/15/25 13:15 Fluid Appearance Clear 01/15/25 13:15 Fluid Specific Grav 1.013 01/15/25 13:15 Fluid pH 7.0 01/15/25 13:15 Fluid WBC 28 /uL 01/15/25 13:15 Fluid RBC 0 10^3/uL 01/15/25 13:15 Fld Polynuclear WBCs # 0.004 01/15/25 13:15 Fld Polynuclear WBCs % 14.300 % 01/15/25 13:15 Fl Mononucl WBCs #(Auto) 0.024 01/15/25 13:15 Fl Mononuclear % Auto 85.700 % 01/15/25 13:15 Fld Crystal Laterality Paracentesis 01/15/25 13:15 Fluid Glucose 128.0 mg/dL 01/15/25 13:15 Fluid Total Protein 1.2 g/dL 01/15/25 13:15 Fluid Albumin 0.8 g/dL 01/15/25 13:15 Fluid LDH 56 U/L 01/15/25 13:15 Fluid Alk Phosphatase 13 IU/L 01/15/25 13:15 Fluid Cholesterol 12 mg/dL (0-200) 01/15/25 13:15 Fluid Triglycerides 18 mg/dL (0-150) 01/15/25 13:15 Fluid Uric Acid 7 mg/dL 01/15/25 13:15 Pleural Amylase Cancelled 01/15/25 13:15 Vitals Last Vital Signs Temp 98.5 F 01/15/25 11:38 Pulse 80 01/15/25 11:38 Resp 16 01/15/25 11:38 BP 148/81 01/15/25 11:38 Pulse Ox 95 01/15/25 11:38 O2 Del Method Room Air 01/15/25 11:38 Discharge Plan Discharge Patient Disposition: Home Condition: Stable Prescriptions: No Action hydroxyzine HCl 50 mg tablet 50 mg PO QID PRN (Reason: for sleep or panic attack) Qty: 120 2RF paroxetine HCl 40 mg tablet 40 mg PO DAILY Qty: 30 11RF Xifaxan 550 mg Tablet 550 mg PO BID furosemide 40 mg Tablet 40 mg PO BID@0500,1700 Qty: 60 0RF lactulose 10 gram/15 mL Solution 10 g PO TID Qty: 3000 0RF Lanolin (HPA) 100 % Cream 1 applic topical PRN PRN (Reason: Dryness) Qty: 7 0RF metolazone 5 mg Tablet 5 mg PO DAILY Qty: 30 0RF spironolactone 25 mg Tablet 50 mg PO BID@0500,1700 Qty: 60 0RF levothyroxine 75 mcg Tablet 75 mcg PO QAM Qty: 30 0RF cetirizine 10 mg Tablet 10 mg PO DAILY Qty: 30 0RF potassium chloride [Klor-Con M20] 20 mEq Tablet,Er Particles/Crystals 40 meq PO BID@0500,1700 Qty: 120 0RF Referrals: Estrella Gerard FNP [Primary Care Provider, Family Practice] - 01/22/25 9:00 am Discharge Diet: Cardiac Discharge Activity: Resume usual activity and Increase activity as tolerated Patient Instructions: Pleural Effusion (DC), Ascites (DC), Pulmonary Nodules (DC), Opioid Safety, Patient Portal & Christoph Instructions Activity Restrictions/Additional Instructions: Fluid restriction of less than 1500 cc. Salt restriction to less than 2 g. Discharge Attestations Time Spent in Discharge Care*: greater than 30 min Specific Discharge Activities: educating patient, educating and/or supporting family/caregiver, discussing with pcp/other providers, discussing with mental health case manager/social workers/dc planners, documenting/other paperwork and evaluating patient/reviewing data Status at Discharge: Cognitive status at discharge: cognitively intact , Behavioral status at discharge: cooperative , Functional status at discharge: independent ambulation , Overall status at discharge: patient is back to baseline Quality Metrics Clinical Quality Measures [ No reported AMI, CVA or VTE this stay] Coding Level of Care Code 90082 Total time (in minutes) for Discharge: 65 Diagnoses Cirrhosis K74.60 Abdominal ascites R18.8 Thrombocytopenia D69.6 Hypokalemia E87.6 Pulmonary nodule R91.1 Nephrolithiasis N20.0 Hypothyroidism E03.9 Celiac disease K90.0
--- NOTE | 2025-01-15 15:52 | US_ITS ---
WS: [email or web address] ULTRASOUND-GUIDED PARACENTESIS CLINICAL INFORMATION: recurrent ascites COMPARISON: None. Procedure Informed consent: The risks, benefits, and alternatives of the procedure were discussed with the patient. Verbal and written consent was obtained. Timeout: A timeout was performed to confirm the correct patient, procedure, and site. Preparation: A suitable skin site was identified. The patient was prepped and draped in usual sterile fashion. Lidocaine 1% was used for local anesthesia. Catheter: 4 [place] One-step Yueh catheter. Side: left Lower quadrant. Fluid Volume: 7800 ml Color: clear yellow DISPOSITION: Discarded safely. Complications: None. US/US paracentesis abd w [id number] IMPRESSION: Uncomplicated ultrasound-guided paracentesis. Removal of 7800cc
--- NOTE | 2025-01-15 16:06 | PC.NURSE ---
Patient discharged to home. IV and telemetry removed. Instruction given regarding follow up needs and new medication. Patient verbalized complete under standing. New medication transmitted to [place]. patient taken by wheelchair to private vehicle. No distress observed.
[2025-01-19 05:39] LABS: Amylase, Peritoneal Fluid 19 U/L
== END 2025-01-15 15:55 | disposition home or self-care (01) | DRG 433 ==
LOC: ER 01-14 02:52 → CSU 01-14 08:00
PROVIDERS: Student in an Organized Health Care Education/Training Program; Admitting Provider Internal Medicine; Emergency Provider Emergency Medicine; PCP Nurse Practitioner Family; Visit Provider Student in an Organized Health Care Education/Training Program
DX: K74.60 Unspecified cirrhosis of liver (principal); J90 Pleural effusion, not elsewhere classified; R18.8 Other ascites; E03.9 Hypothyroidism, unspecified; Z87.440 Personal history of urinary (tract) infections; Z86.19 Personal history of other infectious and parasitic diseases; D69.6 Thrombocytopenia, unspecified; F15.10 Other stimulant abuse, uncomplicated; F10.21 Alcohol dependence, in remission; E87.6 Hypokalemia; R91.1 Solitary pulmonary nodule; N20.0 Calculus of kidney; K90.0 Celiac disease
CPT/HCPCS: 36415; 49083; 71260; 74177; 80053; 80503; 81001; 82042; 82140; 82150; 82465; 82565; 82945; 83605; 83615; 83690; 83735; 83986; 84075; 84100; 84157; 84315; 84478; 84520; 84560; 85025; 85610; 86140; 87015; 87070; 87075; 87077; 87086; 87116; 87186; 87205; 87206; 87801; 88112; 89050; 96374; 96375; 99285; J2270; J2405; J9999; P9046

== ENCOUNTER 2025-01-23 11:31 | Day surgery (SDC) | payer BC, MEDICAID, SELFPAY ==
[2024-05-17 15:33] VITALS: BP 150/84; BMI 31.3
--- NOTE | 2025-01-23 11:39 | US_ITS ---
WS: [email or web address] ULTRASOUND-GUIDED THERAPEUTIC AND DIAGNOSTIC PARACENTESIS Procedure, risks, and complications have been explained to the patient. Consent is obtained. Utilizing aseptic technique and 1% buffered lidocaine, a small dermatome was made through which a 5 [place] Yueh catheter was inserted. Approximately 6000 ml of clear peritoneal fluid was obtained without difficulty. No complications encountered. US/US paracentesis abd w [id number] IMPRESSION: Uncomplicated paracentesis yielding 6000 ml of peritoneal fluid.
[2025-01-23 11:43] VITALS: BP 133/82; PULSE 76; RESP 18; TEMP 36.1; O2SAT 98; BMI 33.3
[2025-01-23 12:33] LABS: Mononuclear #, Pertinoneal Fl 0.045 10^3/uL; Mononuclear %, Pertinoneal Fl 90.000 %; Polynuclear # Cells, Perit 0.005 10^3/uL; Polynuclear % Cells,Perit 10.000 %; RBC Pertioneal Fluid 1 10^3/uL; WBC Peritoneal Fluid 50 /uL
[2025-01-23 12:48] LABS: Appearance, Peritoneal Fluid Cloudy (Clear); Color, Peritoneal Fluid Pale Yellow (Pale Yellow); Cyto Order Verification No Order; Pathology Referral Yes
== END 2025-01-23 12:40 | disposition home or self-care (01) ==
LOC: GILAB 11:32
PROVIDERS: Radiology Diagnostic Radiology; PCP Nurse Practitioner Family; Visit Provider Internal Medicine Gastroenterology
PROC: (CPT 49082; principal; 2025-01-23 12:00)
DX: R18.8 Other ascites (principal)
CPT/HCPCS: 49083; 80503; 87070; 87075; 87205; 89050

== ENCOUNTER 2025-01-29 11:31 | Day surgery (SDC) | payer BC, MEDICAID, SELFPAY ==
[2024-05-17 15:33] VITALS: BP 150/84; BMI 31.3
--- NOTE | 2025-01-29 11:40 | US_ITS ---
WS: [email or web address] ULTRASOUND-GUIDED PARACENTESIS CLINICAL INFORMATION: ascites COMPARISON: None. Procedure Informed consent: The risks, benefits, and alternatives of the procedure were discussed with the patient. Verbal and written consent was obtained. Timeout: A timeout was performed to confirm the correct patient, procedure, and site. Preparation: A suitable skin site was identified. The patient was prepped and draped in usual sterile fashion. Lidocaine 1% was used for local anesthesia. Catheter: 4 [place] One-step Yueh catheter. Side: LEFT Lower quadrant. Fluid Volume: 7000 ml Color: clear yellow DISPOSITION: Discarded safely. Complications: None. Patient disposition: Discharged from the department in stable condition. US/US paracentesis abd w [id number] IMPRESSION: Uncomplicated ultrasound-guided paracentesis. Removal of 7000cc
[2025-01-29 11:49] VITALS: BP 138/88; PULSE 71; RESP 18; TEMP 36.1; O2SAT 98
--- NOTE | 2025-01-29 12:50 | PC.NURSE ---
Pt states she does not need albumin today.
[2025-01-29 12:51] LABS: Body Fluid Polynuclear #Cells 0.003; Monocytes # Body Fluid 0.033; Mononuclear WBC Body Fluid % 91.600 %; Polynuclear WBC Body Fluid % 8.400 %
[2025-01-29 12:54] LABS: Cyto Order Verification No Order
[2025-01-29 14:25] LABS: Apprearance, Body Fluid CLOUDY; Color, Body Fluid PALE YELLOW; PATH Referral YES
[2025-01-29 14:26] LABS: Fluid Laterality Peritoneal Fluid
== END 2025-01-29 13:10 | disposition home or self-care (01) ==
PROVIDERS: Internal Medicine Gastroenterology; Radiology Neuroradiology; PCP Nurse Practitioner Family
PROC: (CPT 49082; principal; 2025-01-29 13:00)
DX: R18.8 Other ascites (principal)
CPT/HCPCS: 49083; 80503; 87070; 87075; 87205; 89050

== ENCOUNTER → 2025-02-13 11:29 | Day surgery (SDC) | payer MEDICAID, BC, SELFPAY ==
[2024-05-17 15:33] VITALS: BP 150/84; BMI 31.3
[2025-02-13 09:11] VITALS: BP 150/84; BMI 31.3
--- NOTE | 2025-02-13 11:48 | US_ITS ---
WS: [email or web address] ULTRASOUND-GUIDED PARACENTESIS CLINICAL INFORMATION: decompensated hcv cirrhosis COMPARISON: None. Procedure Informed consent: The risks, benefits, and alternatives of the procedure were discussed with the patient. Verbal and written consent was obtained. Timeout: A timeout was performed to confirm the correct patient, procedure, and site. Preparation: A suitable skin site was identified. The patient was prepped and draped in usual sterile fashion. Lidocaine 1% was used for local anesthesia. Catheter: 4 [place] One-step Spiceworkseh catheter. Side: LEFT lower quadrant. Fluid Volume: 6000 ml Color: Clear yellow DISPOSITION: Discarded safely. Complications: None. Patient disposition: Discharged from the department in stable condition. US/US paracentesis abd w [id number] IMPRESSION: Uncomplicated ultrasound-guided paracentesis. Removal of 6000 cc
[2025-02-13 13:11] LABS: Appearance, Peritoneal Fluid Cloudy (Clear); Color, Peritoneal Fluid Pale Yellow (Pale Yellow); Cyto Order Verification No Order; Mononuclear #, Pertinoneal Fl 0.042 10^3/uL; Mononuclear %, Pertinoneal Fl 85.800 %; Pathology Referral Yes; Polynuclear # Cells, Perit 0.007 10^3/uL; Polynuclear % Cells,Perit 14.200 %; RBC Pertioneal Fluid 0 10^3/uL; WBC Peritoneal Fluid 49 /uL
[2025-02-13] MEDS: ALBUMIN IV (13:24)
== END ==
LOC: GILAB 11:30
PROVIDERS: Radiology Neuroradiology; PCP Nurse Practitioner Family; Visit Provider Internal Medicine Gastroenterology
PROC: (CPT 49082; principal; 2025-02-13 12:00)
DX: K74.69 Other cirrhosis of liver (principal)
CPT/HCPCS: 49083; 80503; 87070; 87075; 87205; 89050; 96365; P9047

== ENCOUNTER → 2025-02-14 15:04 | Outpatient (BNVA) | payer MEDICAID, BC, SELFPAY ==
[2025-02-13 09:11] VITALS: BP 150/84; BMI 31.3
== END ==
PROVIDERS: PCP Nurse Practitioner Family; Visit Provider Nurse Practitioner Family
DX: R53.83 Other fatigue (principal); I10 Essential (primary) hypertension
CPT/HCPCS: 80053; 85025

== ENCOUNTER 2025-02-20 11:12 | Day surgery (SDC) | payer BC, MEDICAID, SELFPAY ==
[2024-05-17 15:33] VITALS: BP 150/84; BMI 31.3
[2025-02-13 09:11] VITALS: BP 150/84; BMI 31.3
[2025-02-20 11:39] VITALS: BP 122/69; PULSE 81; RESP 18; TEMP 36.8; O2SAT 97; BMI 33.3
--- NOTE | 2025-02-20 11:45 | US_ITS ---
WS: [email or web address] ULTRASOUND-GUIDED THERAPEUTIC AND DIAGNOSTIC PARACENTESIS Procedure, risks, and complications have been explained to the patient. Consent is obtained. Utilizing aseptic technique and 1% buffered lidocaine, a small dermatome was made through which a 5 [place] Yueh catheter was inserted. Approximately 7250 ml of clear peritoneal fluid was obtained without difficulty. No complications encountered. US/US paracentesis abd w [id number] IMPRESSION: Uncomplicated paracentesis yielding 7250 ml of peritoneal fluid.
[2025-02-20 13:05] LABS: Appearance, Peritoneal Fluid Cloudy (Clear); Color, Peritoneal Fluid Pale Yellow (Pale Yellow); Cyto Order Verification No Order; Pathology Referral Yes
[2025-02-20 13:11] LABS: Mononuclear #, Pertinoneal Fl 0.046 10^3/uL; Mononuclear %, Pertinoneal Fl 86.800 %; Polynuclear # Cells, Perit 0.007 10^3/uL; Polynuclear % Cells,Perit 13.200 %; RBC Pertioneal Fluid 0 10^3/uL; WBC Peritoneal Fluid 53 /uL
[2025-02-20 13:16] LABS: Hematocrit 36.3 % (36-47); Hemoglobin 11.50 g/dL (11.27-16.99); Mean Corpuscular HGB Conc 31.7 g/dL (30-55); Mean Corpuscular Hemoglobin 27.3 pg (27-33); Mean Corpuscular Volume 86.0 fl (85-98); Nucleated Red Blood Cells % 0 %; Platelet Count 108 10^3/cmm (157-399); Red Blood Count 4.22 10^6/uL (3.85-5.65); White Blood Count 3.99 10^3/uL (3.29-11.43)
[2025-02-20 13:33] LABS: Alanine Aminotransferase 18 U/L (0-33); Albumin Level 2.5 g/dL (3.5-5.2); Alkaline Phosphatase 145 U/L (35-105); Anion Gap 14.1 (5-19); Aspartate Amino Transferase 38 U/L (0-32); Blood Urea Nitrogen 14 mg/dL (6-20); Calcium 8.0 mg/dL (8.5-10.5); Carbon Dioxide 25 mmol/L (22-29); Chloride 102 mmol/L (98-107); Creatinine Clr Calc Pharmacy 86.3346; Globulin 3.3 g/dL (1.3-4.6); Glucose 89 mg/dL (65-115); Osmolality Calculated 286 mOsm/kg (285-295); Potassium 3.1 mmol/L (3.5-5.1); Sodium 138 mmol/L (136-145); Total Protein 5.8 g/dL (6.6-8.7)
== END 2025-02-20 13:40 | disposition home or self-care (01) ==
LOC: GILAB 11:14
PROVIDERS: Radiology Diagnostic Radiology; PCP Nurse Practitioner Family; Visit Provider Internal Medicine Gastroenterology
PROC: (CPT 49082; principal; 2025-02-20 12:00)
DX: R18.8 Other ascites (principal)
CPT/HCPCS: 49083; 80053; 80503; 85025; 87070; 87075; 87205; 89050

== ENCOUNTER 2025-02-27 11:16 | Day surgery (SDC) | payer BC, MEDICAID, SELFPAY ==
[2024-05-17 15:33] VITALS: BP 150/84; BMI 31.3
[2025-02-13 09:11] VITALS: BP 150/84; BMI 31.3
--- NOTE | 2025-02-27 11:33 | US_ITS ---
WS: [email or web address] ULTRASOUND-GUIDED PARACENTESIS CLINICAL INFORMATION: Decompensated cirrhosis COMPARISON: None. Procedure Informed consent: The risks, benefits, and alternatives of the procedure were discussed with the patient. Verbal and written consent was obtained. Timeout: A timeout was performed to confirm the correct patient, procedure, and site. Preparation: A suitable skin site was identified. The patient was prepped and draped in usual sterile fashion. Lidocaine 1% was used for local anesthesia. Catheter: 4 [place] One-step Yueh catheter. Side: LEFT lower quadrant. Fluid Volume: 6000 ml Color: Clear yellow DISPOSITION: Discarded safely. Complications: None. Patient disposition: Discharged from the department in stable condition. US/US paracentesis abd w [id number] IMPRESSION: Uncomplicated ultrasound-guided paracentesis. Removal of 6000 cc
[2025-02-27 11:48] VITALS: BP 103/60; PULSE 69; RESP 18; O2SAT 96
[2025-02-27 11:55] VITALS: BMI 33.3
[2025-02-27 13:02] LABS: Cyto Order Verification No Order
[2025-02-27 13:07] VITALS: BP 97/52; PULSE 64; RESP 16; O2SAT 98
[2025-02-27 13:38] LABS: Mononuclear #, Pertinoneal Fl 0.046 10^3/uL; Mononuclear %, Pertinoneal Fl 85.200 %; Polynuclear # Cells, Perit 0.008 10^3/uL; Polynuclear % Cells,Perit 14.800 %; RBC Pertioneal Fluid 0 10^3/uL; WBC Peritoneal Fluid 54 /uL
[2025-02-27 14:34] LABS: Appearance, Peritoneal Fluid Hazy (Clear); Color, Peritoneal Fluid Pale Yellow (Pale Yellow); Pathology Referral Yes
== END 2025-02-27 13:15 | disposition home or self-care (01) ==
LOC: GILAB 11:17
PROVIDERS: Radiology Neuroradiology; PCP Nurse Practitioner Family; Visit Provider Internal Medicine Gastroenterology
PROC: (CPT 49082; principal; 2025-02-27 12:00)
DX: K74.69 Other cirrhosis of liver (principal)
CPT/HCPCS: 49083; 80503; 87070; 87075; 87205; 89050

== ENCOUNTER 2025-03-02 12:59 | Emergency (ER) | payer BC, MEDICAID, SELFPAY ==
[2025-02-13 09:11] VITALS: BP 150/84; BMI 31.3
[2025-03-02] VITALS (7 sets, daily range): BP systolic 117–133; BP diastolic 59–81; PULSE 68–77; RESP 16–18; TEMP 36.4; O2SAT 95–100; BMI 31.6
--- OUTSIDE RECORDS SUMMARY | 2025-03-02 13:04 | XMS_ITS | Clinical Summary ---
Author Organization [facility] Address [address] [place] [address] Phone Care Team Providers Care Surfacer Name Role Phone CanóvanasEstrella mccormick MARCELINO Primary Care Provider [phone] Allergies Active Allergy Reactions Criticality Noted Date [...] Encounters Date Type Department Care Team Description 02/13/2025 External Device Data ST[facility] ABSTRACTION Provider, Abstract 02/13/2025 External Device Data [facility] ABSTRACTION Provider, Abstract 02/13/2025 External Device Data [facility] ABSTRACTION Provider, Abstract 02/06/2025 5:55 AM [employer] - 02/06/2025 11:59 PM [employer] Hospital Encounter [facility] [place] [address] [place] [phone] Ambulance, [facility] Discharge Disposition: [facility] 02/06/2025 5:20 AM [employer] - 02/06/2025 11:59 PM [employer] Hospital Encounter [facility] [place] [address] [place] [phone] José Myers MD Ambulance, [facility] Discharge Disposition: [facility] 02/06/2025 4:13 AM [employer] - 02/06/2025 8:34 AM [facility] Emergency [facility] Emergency Medicine [address] [facility] [address] [place] [phone] Blaine Carvalho MD Hypokalemia due to excessive gastrointestinal loss of potassium (Primary Dx); Decompensated HCV cirrhosis (CMS/HCC) Discharge Disposition: [facility] 02/06/2025 Travel 01/09/2025 External Device Data [facility] ABSTRACTION Provider, Abstract 01/09/2025 External Device Data [facility] ABSTRACTION Provider, Abstract 12/19/2024 External Device Data [facility] ABSTRACTION Provider, Abstract 12/05/2024 External Device Data [facility] ABSTRACTION Provider, Abstract from Last 3 Months Immunizations Immunization Administration [...] drink = 0.6 oz pur e alcohol) Food Insecurity Answer Date Recorded Do you find you are eating l ess than you should because you can t pay for food? No 02/06/2025 Transportation Needs Answer Date Record ed Have you gone without health care because you didn t have a way to get there? 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 No 2024 Housing Stability Answer Date Recorded Do you worry you won t have a steady place to sleep or struggle to pay rent or mortgage? No 02/06/2025 Utility Needs Answer Date Recorded Do you have difficulty payin g for utility costs (electric, water or gas bills)? No 02/06/2025 Medication Needs Answer Date Recorded Have you skipped taking medi cation due to cost or worry you can t afford new medications? No 02/06/2025 Feeling Safe Answer Date Recorded Are you in a relationship wi th someone who hurts you emotionally and/or physically? No 02/06/2025 Comments No Sex and Gender Information Value Date Recorded Sex Assigned at Not on file Legal Sex Female 10:22 PM CDT Gender Identity Not on file Sexual Orientation Not on file Last Filed Vital Signs Vital Sign Reading Time Taken Comments Blood Pressure 156/101 02/06/2025 8:30 AM [employer] Pulse 83 02/06/2025 8:30 AM [employer] Temperature 36.9 C (98.5 F) 02/06/2025 4:14 AM [employer] Respiratory Rate 9 02/06/2025 8:30 AM [employer] Oxygen Saturation 94% 02/06/2025 8:30 AM [employer] Inhaled Oxygen Concentration - - Weight 96.8 kg (213 lb 8 oz) 02/06/2025 4:14 AM [employer] Height 165.1 cm (5' 5 ) 02/06/2025 4:14 AM [employer] Body Mass Index 35.53 02/06/2025 4:14 AM [employer] Plan of Treatment Upcoming Encounters Date Type Department Care Team (Late st Contact Info) Description 03/16/2025 1:20 PM [employer] Office Visit [facility] Cancer and Hemat[facility] [place] [address] [facility] [address] [place] [address] Anup Arriaga MD [address] [facility] [address] [place] [address] Health Maintenance Due Date Last [...] Procedure Name Priority Date/Time Associated Diagnosis Comments AMMONIA LEVEL Stat 02/06/2025 8:19 AM [employer] LIPASE Stat 02/06/2025 6:51 AM [employer] COMPREHENSIVE METABOLIC PANEL Stat 02/06/2025 6:51 AM [employer] CBC WITH DIFFERENTIAL Stat 02/06/2025 6:51 AM [employer] XR CHEST PA OR AP 1 VW Stat 4:48 AM [employer] COLONOSCOPY REPORT 09/29/2023 2: 57 PM CDT from Last 3 Months or Most Recently Relevant to Health Maintenance Results * (ABNORMAL) AMMONIA LEVEL (02/06/2025 8:19 AM [employer]) Pathologist [facility] AMMONIA 109.0(H) 11.0 - 51.0 umol/L 02/06/2025 8:39 AM [employer] [facility] Blood, venous Collection / Unknown 02/06/2025 8:19 AM [employer] 02/06/2025 8:22 AM [employer] us José Myers MD CHEMISTRY ORDERABLES Final Result [id number] [address] [place] [id number] * (ABNORMAL) CBC WITH DIFFERENTIAL (02/06/2025 6:51 AM [employer]) WBC 6.9 4.0 - 10.0 K/uL 02/06/2025 7:06 AM [facility] RBC 4.53 3.93 - 5.22 M/uL 02/06/2025 7:06 AM [facility] HEMOGLOBIN 12.3 11.2 - 15.7 g/dL 02/06/2025 7:06 AM [facility] HEMATOCRIT 36.5 34.1 - 44.9 % 02/06/2025 7:06 AM [facility] MCV 80.6 79.4 - 94.8 fL 02/06/2025 7:06 AM [facility] MCH 27.2 25.6 - 32.2 pg 02/06/2025 7:06 AM [facility] MCHC 33.7 32.2 - 35.5 g/dL 02/06/2025 7:06 AM [facility] RDW 14.7(H) 11.0 - 14.5 % 02/06/2025 7:06 AM [facility] RDW-STDEV 43.3 36.9 - 56.9 fL 02/06/2025 7:06 AM [facility] PLATELETS 152(L) 163 - 337 K/uL 02/06/2025 7:06 AM [facility] MPV 11.1 10.0 - 14.8 fL 02/06/2025 7:06 AM [facility] NEUTROPHILS 57 34 - 71 % 02/06/2025 7:06 AM [facility] LYMPHOCYTES 28 19 - 52 % 02/06/2025 7:06 AM [facility] MONOCYTES 11 5 - 13 % 02/06/2025 7:06 AM [facility] EOSINOPHILS 3 1 - 6 % 02/06/2025 7:06 AM [facility] BASOPHILS 1 0 - 1 % 02/06/2025 7:06 AM [facility] IMMATURE GRANULOCYTES 0 % 02/06/2025 7:06 AM [facility] NEUTROPHIL ABSOLUTE 3.94 1.56 - 6.13 K/uL 02/06/2025 7:06 AM [facility] LYMPHOCYTE ABSOLUTE 1.89 1.20 - 3.40 K/uL 02/06/2025 7:06 AM [facility] MONOCYTE ABSOLUTE 0.72(H) 0.24 - 0.36 K/uL 02/06/2025 7:06 AM [facility] EOSINOPHIL ABSOLUTE 0.22 0.04 - 0.36 K/uL 02/06/2025 7:06 AM [facility] BASOPHILS ABSOLUTE 0.08 0.01 - 0.08 K/uL 02/06/2025 7:06 AM [facility] IMMATURE GRANULOCYTES ABSOLUTE 0.02 K/uL 02/06/2025 7:06 AM [facility] Blood BLOOD SPECIMEN / Unknown Collection / Unknown 02/06/2025 6:51 AM [employer] 02/06/2025 7:01 AM [employer] Blaine Carvalho MD HEMATOLOGY ORDERABLES Fi nal Result Performing Organization Address [facility]/ZIP Co de Phone Number [facility] CLIA # [id number] [address] [place] [address] * LIPASE (02/06/2025 6:51 AM [employer]) LIPASE 42 13 - 60 U/L 02/06/2025 7:17 AM [facility] Blood BLOOD SPECIMEN / Unknown Collection / Unknown 02/06/2025 6:51 AM [employer] 02/06/2025 7:01 AM [employer] Blaine Carvalho MD CHEMISTRY ORDERABLES Fin al Result Performing Organization Address City/[facility]/ZIP Co de Phone Number [facility] CLIA # [id number] [address] [place] [phone] * (ABNORMAL) COMPREHENSIVE METABOLIC PANEL (02/06/2025 6:51 AM [employer]) SODIUM 137 136 - 145 mmol/L 02/06/2025 7:19 AM [facility] POTASSIUM 2.4(LL) 3.5 - 5.1 mmol/L 02/06/2025 7:19 AM [facility] CHLORIDE 98 98 - 107 mmol/L 02/06/2025 7:19 AM [facility] CO2 31(H) 22 - 29 mmol/L 02/06/2025 7:19 AM [facility] CALCIUM 8.1(L) 8.6 - 10.0 mg/dL 02/06/2025 7:19 AM [facility] BUN 15 6 - 20 mg/dL 02/06/2025 7:19 AM [facility] CREATININE 1.19(H) 0.51 - 0.95 mg/dL 02/06/2025 7:19 AM [facility] GLUCOSE 119(H) 74 - 99 mg/dL 02/06/2025 7:19 AM [facility] TOTAL PROTEIN 6.3(L) 6.6 - 8.7 g/dL 02/06/2025 7:19 AM [facility] ALBUMIN 2.6(L) 3.5 - 5.2 g/dL 02/06/2025 7:19 AM [facility] BILIRUBIN TOTAL 1.2 0.0 - 1.2 mg/dL 02/06/2025 7:19 AM [facility] ALKALINE PHOSPHATASE 139(H) 35 - 104 U/L 02/06/2025 7:19 AM [facility] AST 38(H) 0 - 35 U/L 02/06/2025 7:19 AM [facility] ALT 18 0 - 35 U/L 02/06/2025 7:19 AM [facility] GFR 53(L) >=60 mL/min/1.7 3 sq meter 02/06/2025 7:19 AM [facility] Comment:eGFR calculated with 2020 CKD-EPI equation. Vegetarian diet, extremely high or low muscle mass, and may affect results. Cystatin C with Glomerular Filtration Rate is a suitable alternative for these patients. ANION GAP 8 5 - 20 mmol/L 02/06/2025 7:19 AM [facility] Blood BLOOD SPECIMEN / Unknown Collection / Unknown 02/06/2025 6:51 AM [employer] 02/06/2025 7:01 AM [employer] us Blaine Carvalho MD CHEMISTRY ORDERABLES Fin al Result [facility] [id number] [address] [place] [address] * XR CHEST PA OR AP 1 VW (02/06/2025 4:48 AM [employer]) Anatomical Region Laterality Modality Chest Computed Radiogr aphy 02/06/2025 4:28 AM [employer] Impressions 02/06/2025 7:54 AM [employer] IMPRESSION: Please see below. Exam: XR CHEST PA OR AP 1 VW Date/Time of Exam: 02/06/2025 4:48 AM Reason For Exam: Shortness of Breath SOB. Diagnosis: See Reason for Exam. Findings: The portable AP upright study is compared to the exam of 08/11/2024. Lung volumes are low. There is no pneumothorax. There is a trace right pleural effusion. There is mild right basilar infiltrate or atelectasis. The cardiac silhouette is not enlarged. There is probable mild vascular congestion. The bony thorax is grossly intact. Narrative Procedure Note Kaur Lennon MD - 02/06/2025 IMPRESSION: Please see below. Exam: XR CHEST PA OR AP 1 VW Date/Time of Exam: 02/06/2025 4:48 AM Reason For Exam: Shortness of Breath SOB. Diagnosis: See Reason for Exam. Findings: The portable AP upright study is compared to the exam of 08/11/2024. Lung volumes are low. There is no pneumothorax. There is a trace right pleural effusion. There is mild right basilar infiltrate or atelectasis. The cardiac silhouette is not enlarged. There is probable mild vascular congestion. The bony thorax is grossly intact. lBaine Carvalho MD DIAGNOSTIC IMAGING ORDER CAREMN Final Result * COLONOSCOPY REPORT (09/29/2023 2:57 PM CDT) Narrative Procedure Note Steven Francis MD - 09/29/2023 2:57 PM CDT [facility] GI Patient Name: Sandy Ernandez Procedure Date: [...] 2:39:39 PM Scope Out: 2:52:28 PM [address], [place] Steven Francis MD GI PROCEDURE ORDERABLES F inal Result from Last 3 Months or Most Recently Relevant to Health Maintenance Insurance [facility] MEDICAID Advance Directives For more information, please contact: [phone] * Full Code (Latest Code Status on File) Date Activated Date Inactivated Comments 09/29/2023 1:00 PM 09/29/2023 5:24 PM Care Teams Surfacer Relationship Specialty Start Date End Date Estrella Gerard FNP [address] [place] [phone] PCP - General Nurse Practitioner Family 05/18/21
--- OUTSIDE RECORDS SUMMARY | 2025-03-02 13:04 | XMS_ITS | Clinical Summary ---
Author Organization [facility] Address [address] [address] [place] [address] Phone Care Team Providers Care Rivet Heater Name Role Phone Unavailable Primary Care Provider [...] (2 - Td or Tdap) 05/18/[address] [place] [address] NETWORK
--- NOTE | 2025-03-02 13:20 | CTR_ITS ---
PROCEDURE INFORMATION: Exam: CT Abdomen And Pelvis With Contrast Exam date and time: 03/02/2025 2:08 PM Age: 59 years old Clinical indication: Abdominal pain; TECHNIQUE: Imaging protocol: Computed tomography of the abdomen and pelvis with contrast. Radiation optimization: All CT scans at this facility use at least one of these dose optimization techniques: automated exposure control; mA and/or kV adjustment per patient size (includes targeted exams where dose is matched to clinical indication); or iterative reconstruction. Contrast material: OMNI 350; Contrast volume: 100 ml; Contrast route: INTRAVENOUS (IV); COMPARISON: 1. CT abdomen pelvis w con* [id number] 01/14/2025 1:[address] abdomen pelvis wo con [id number] 04/10/2024 1:41 PM RADIATION DOSE METRICS: Total DLP (mGy-cm): 906.11 FINDINGS: Lungs: Peripheral atelectasis in the right lower lobe, unchanged from previous study. Pleural spaces: Small right pleural effusion, moderately decreased from prior study. No evidence of pneumothorax. Heart: Cardiac size is normal. No pericardial fluid. Coronary arteries: No coronary artery calcifications. Liver: Liver is small with irregular capsular margins. Gallbladder and biliary ducts: The gallbladder is surgically absent with clips in the gallbladder fossa. Pancreas: Normal. No ductal dilation. Spleen: Spleen is enlarged measuring 15 x 6 x 14 cm. Adrenal glands: The adrenal glands are normal. Kidneys and ureters: The kidneys are normal in size and symmetrical in function. No hydronephrosis. No renal stones identified. 5 x 6 x 8 mm left proximal ureteral stone is again noted at the ureteropelvic junction at the level of the L2-L3 disc, unchanged in position compared with prior study. Stomach and bowel: No evidence of bowel obstruction. Mild colonic diverticulosis is noted. No definite evidence of diverticulitis. Some wall thickening throughout the proximal half of the colon however the lumen is decompressed. Appendix: No evidence of appendicitis. Intraperitoneal space: Significant water density ascites is present. No free intra-abdominal air is noted. Vasculature: Umbilical vein is enlarged. 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 There is no evidence of aortic aneurysm or dissection. No significant atherosclerotic changes noted. Significant portal hypertension with enlarged splenic vein, splenorenal shunting and small portal vein. No evidence of thrombosis within the portal or systemic veins. Lymph nodes: No pathologically enlarged retroperitoneal adenopathy appreciated. Urinary bladder: Unremarkable as visualized. Reproductive: Uterus and adnexal structures appear normal for the patient's age. Bones/joints: There is no acute fracture or dislocation. There is an old compression fracture at L4. Degenerative changes are seen throughout the spine, with a grade 1 anterolisthesis of L5 on S1. Moderate to severe hypertrophic changes within the facets L3-S1. Soft tissues: Soft tissues of the visible body wall demonstrate no masses, ectopic air or fluid collections. There is generalized mild edema throughout the subcutaneous fat with prominent collateral vessels in the lateral upper abdominal wall bilaterally. CT/CT abdomen pelvis w con* [id number] IMPRESSION: 1. 5 x 6 x 8 mm left proximal ureteral stone is again noted at the ureteropelvic junction at the level of the L2-L3 disc, unchanged in position compared with prior study. 2. Hepatic cirrhosis with severe ascites. Associated portal hypertension, shunt vascularity and splenomegaly. These findings are unchanged compared with previous study.
--- NOTE | 2025-03-02 13:30 | W.ED.ABDPA2 ---
HPI - Abdominal Pain General: Chief Complaint: Abdominal Pain Stated Complaint: Mid ABD Pain N/V Time Seen by Provider: 03/02/25 13:07 Source: patient Mode of arrival: ambulatory Limitations: no limitations History of Present Illness: 59-year-old female states she has been having mid abdominal pain along with vomitings been going on for 3 days. States the pain did worsen today sharp in nature rates it an 8 out of 10. She has had low-grade fevers at home denies any diarrhea has had appendectomy in the past. Associated Symptoms: Reports vomiting Related Data Home Medications ?Medication ?Instructions ?Recorded ?Confirmed rifaximin 550 mg tablet (Xifaxan) 550 mg PO BID 12/10/23 02/20/25 omeprazole 40 mg capsule,delayed 40 mg PO DAILY 02/14/25 02/20/25 release Previous Rx's ?Medication ?Instructions ?Recorded hydroxyzine HCl 50 mg tablet 50 mg PO QID PRN for sleep or 10/10/24 panic attack #120 tabs paroxetine HCl 40 mg tablet 40 mg PO DAILY #30 tabs 10/10/24 cetirizine 10 mg tablet 10 mg PO DAILY #30 tabs 12/27/24 furosemide 40 mg tablet 40 mg PO BID@0500,1700 #60 tabs 12/27/24 lactulose 10 gram/15 mL oral 10 g (15 mL) PO TID #3,000 mL 12/27/24 solution levothyroxine 75 mcg tablet 75 mcg PO QAM #30 tabs 12/27/24 modified lanolin 100 % topical 1 applic topical PRN PRN Dryness 12/27/24 cream (Lanolin (HPA)) #7 grams potassium chloride 20 mEq 40 meq (2 x 20 mEq) PO 12/27/24 tablet,extended BID@0500,1700 #120 tabs release(part/cryst) (Klor-Con M) spironolactone 25 mg tablet 50 mg (2 x 25 mg) PO BID@0500,1700 12/27/24 #60 tabs food supplemt, lactose-reduced 1 ea PO BID@,16 #5,688 mL 02/16/25 0.08 gram-1.1 kcal/mL oral liquid (Boost High Protein) metolazone 5 mg tablet 5 mg PO DAILY #30 tabs 11/25/25 Allergies Allergy/AdvReac Type Severity Reaction Status Date / Time tramadol Allergy ADR-Nausea Verified 02/20/25 11:37 NSAIDS (Non-Steroidal AdvReac Unknown Verified 02/20/25 11:37 Anti-Inflamma Review of Systems GI: Reports: abdominal pain and vomiting PFS ED PFSH: Medical History (Updated 03/02/25 @ 15:50 by Dionne Gutiérrez MD) Nephrolithiasis Hypothyroidism Hepatic encephalopathy SBP (spontaneous bacterial peritonitis) History of nephrolithiasis Methamphetamine abuse, episodic Celiac disease Cirrhosis Enterococcus UTI Thrombocytopenia S/P abdominal paracentesis Hepatitis C Family History Mother Hypertension Family/Other Hypertension Denies family history of Diabetes CAD (coronary artery disease) Cancer Social History Smoking and tobacco/nicotine status: never used tobacco/nicotine Second hand smoke exposure: Yes Alcohol intake: former Former alcohol use details: 25 years ago Substance/Drug Use: former Former substance use details: 5-6 years ago Adopted: No Caregiver/support person: No Lives independently: Yes Household members: friend(s) Housing: House Marital status: Marital status details: while in skilled nursing, never met him outside of skilled nursing Number of children: 2 Number of grandchildren: 5 Highest education level completed: Some College, No Degree service: No Current occupational status: disabled Current occupation: working on getting disability Current occupational exposures/hazards: No Pets and animals: Yes Pets & animals: dog(s) Leisure activites: other Leisure activities details: watch movies and play with grand kids Sexually active: No Do you think of yourself as: Straight/Heterosexual Current gender identity: Female Lauren/Tenriism: Mormon Special lauren needs: No Agree to transfusion: Yes Female Reproductive History: Para: 2 Physical Exam Const: COMMON NORMALS: patient oriented x3 HENMT: COMMON NORMALS: normocephalic and atraumatic HEAD & SCALP: normocephalic and atraumatic Neck/C-Spine: COMMON NORMALS: full ROM and supple Chest: COMMONS NORMALS: normal inspection of the chest Resp: COMMON NORMALS: normal respiratory effort, No retractions, No use of accessory muscles and clear to auscultation bilaterally AUSCULTATION: clear to auscultation bilaterally Cardio: COMMON NORMALS: regular rate, regular rhythm and No murmurs present (Cardio) RATE: regular rate RHYTHM: regular rhythm GI: COMMON NORMALS: Normal to inspection, nondistended, normoactive bowel sounds present, Soft to palpation and no masses PALPATION: Yes Soft to palpation OTHER: diffuse tenderness Extremity: COMMON NORMALS: normal to inspection and full ROM Neuro: COMMON NORMALS: patient oriented x3, moves all extremities and no focal motor deficits Psych: COMMON NORMALS: mental status grossly normal, Normal thought process present and cooperative THOUGHT PROCESS: Normal thought process present Skin: COMMON NORMALS: no rashes or lesions noted and no wounds GENERAL SKIN EXAM: no rashes or lesions noted Course Vital Signs: Vital signs: Vital Signs Temperature 97.6 F 03/02/25 13:05 Pulse Rate 72 03/02/25 13:05 Respiratory Rate 18 03/02/25 13:57 Blood Pressure 133/81 03/02/25 13:05 Pulse Oximetry 100 03/02/25 13:05 Oxygen Delivery Me thod Room Air 03/02/25 13:05 MDM - Abdominal Pain Medical Decision Making 59-year-old female presents here with abdominal pain differential includes appendicitis, cholecystitis, bowel obstruction. These were ruled out with CT CT showed cirrhosis with ascites has a history of cirrhosis. Lab work showed normal white count does have hypokalemia has chronic hypokalemia did give her an extra dose of potassium here. Her pain here is improved abdominal discharge is benign. I did go over these findings with her she is stable for discharge she is follow-up with her PCP she understands and agrees to plans. Medical Records I reviewed the patient's medical records. Lab Data I reviewed the patient's lab results. 03/02/25 13:50 03/02/25 13:50 Labs/Radiology: Radiology Impressions Abdomen/Pelvis CT 03/02/25 13:20 IMPRESSION: 1. 5 x 6 x 8 mm left proximal ureteral stone is again noted at the ureteropelvic junction at the level of the L2-L3 disc, unchanged in position compared with prior study. 2. Hepatic cirrhosis with severe ascites. Associated portal hypertension, shunt vascularity and splenomegaly. These findings are unchanged compared with previous study. Laboratory Results WBC 5.03 10^3/uL (3.29-11.43) 03/02/25 13:50 RBC 4.25 10^6/uL (3.85-5.65) 03/02/25 13:50 Hgb 11.50 g/dL (11.27-16.99) 03/02/25 13:50 Hct 35.2 % (36-47) L 03/02/25 13:50 MCV 82.8 fl (85-98) L 03/02/25 13:50 MCH 27.1 pg (27-33) 03/02/25 13:50 MCHC 32.7 g/dL (30-55) 03/02/25 13:50 RDW 15.0 % (12.1-15.1) 03/02/25 13:50 Plt Count 136 10^3/cmm (157-399) L 03/02/25 13:50 MPV 12.5 fL (7.4-10.4) H 03/02/25 13:50 Neut % (Auto) 77.3 % 03/02/25 13:50 Lymph % (Auto) 12.7 % 03/02/25 13:50 Cherry % (Auto) 7.8 % 03/02/25 13:50 Eos % (Auto) 1.4 % 03/02/25 13:50 Baso % (Auto) 0.6 % 03/02/25 13:50 Neut # (Auto) 3.89 10^3/uL (1.8-7.7) 03/02/25 13:50 Lymph # (Auto) 0.6 10^3/uL (0.8-4.8) L 03/02/25 13:50 Cherry # (Auto) 0.4 10^3/uL (0.2-0.9) 03/02/25 13:50 Eos # (Auto) 0.1 10^3/uL (0.0-0.8) 03/02/25 13:50 Baso # (Auto) 0.0 10^3/uL (0.0-0.1) 03/02/25 13:50 Nucleated RBC % (auto) 0 % 03/02/25 13:50 Nucleated RBCs # 0.0 /100WBC 03/02/25 13:50 Sodium 137 mmol/L (136-145) 03/02/25 13:50 Potassium 2.6 mmol/L (3.5-5.1) L* 03/02/25 13:50 Chloride 99 mmol/L (98-107) 03/02/25 13:50 Carbon Dioxide 30 mmol/L (22-29) H 03/02/25 13:50 Anion Gap 10.6 (5-19) 03/02/25 13:50 BUN 15 mg/dL (6-20) 03/02/25 13:50 Creatinine 0.9 mg/dL (0.5-0.9) 03/02/25 13:50 GFR Calculation 64.5 mL/min (90-130) L 03/02/25 13:50 Glucose 105 mg/dL (65-115) 03/02/25 13:50 Calculated Osmolality 285 mOsm/kg (285-295) 03/02/25 13:50 Calcium 8.2 mg/dL (8.5-10.5) L 03/02/25 13:50 Magnesium 2.0 mg/dL (1.7-2.3) 03/02/25 13:50 Total Bilirubin 1.5 mg/dL (0.15-1.2) H 03/02/25 13:50 AST 36 U/L (0-32) H 03/02/25 13:50 ALT 18 U/L (0-33) 03/02/25 13:50 Alkaline Phosphatase 119 U/L (35-105) H 03/02/25 13:50 Total Protein 5.9 g/dL (6.6-8.7) L 03/02/25 13:50 Albumin 2.8 g/dL (3.5-5.2) L 03/02/25 13:50 Globulin 3.1 g/dL (1.3-4.6) 03/02/25 13:50 Lipase 37 U/L (13-60) 03/02/25 13:50 Urine Color Yellow (Yellow) 03/02/25 15:16 Urine Appearance Clear (CLEAR) 03/02/25 15:16 Urine pH 7.0 (5-7) 03/02/25 15:16 Ur Specific [place] 1.019 (1.005-1.030) 03/02/25 15:16 Urine Protein Negative (Negative) 03/02/25 15:16 Urine Glucose (UA) Negative (Normal) 03/02/25 15:16 Urine Ketones Negative (Negative) 03/02/25 15:16 Urine Blood Negative (Negative) 03/02/25 15:16 Urine Nitrate Negative (Negative) 03/02/25 15:16 Urine Bilirubin Negative (Negative) 03/02/25 15:16 Urine Urobilinogen 0.2 mg/dL (Negative) 03/02/25 15:16 Ur Leukocyte Esterase Trace (Negative) A 03/02/25 15:16 Urine RBC 0-2 /hpf (0-2) 03/02/25 15:16 Urine WBC 6-10 /hpf (0-5) 03/02/25 15:16 Ur Squamous Epith Cells 0-5 /hpf (0-5) 03/02/25 15:16 Amorphous Sediment Not Reportable 03/02/25 15:16 Urine Bacteria None seen /hpf (NONE) 03/02/25 15:16 Hyaline Casts 0.40 /lpf 03/02/25 15:16 All radiology interpretation(s) finalized by discharge Discharge Plan Discharge Patient Disposition: Home Clinical Impression: Abdominal pain, Hypokalemia Condition: Stable Prescriptions: No Action hydroxyzine HCl 50 mg tablet 50 mg PO QID PRN (Reason: for sleep or panic attack) Qty: 120 2RF paroxetine HCl 40 mg tablet 40 mg PO DAILY Qty: 30 11RF omeprazole 40 mg capsule,delayed release(DR/EC) 40 mg PO DAILY Boost High Protein 0.08 gram- 1.1 kcal/mL liquid 1 ea PO BID@08,16 Qty: 5688 0RF metolazone 5 mg tablet 5 mg PO DAILY Qty: 30 0RF Xifaxan 550 mg Tablet 550 mg PO BID furosemide 40 mg Tablet 40 mg PO BID@0500,1700 Qty: 60 0RF lactulose 10 gram/15 mL Solution 10 g PO TID Qty: 3000 0RF Lanolin (HPA) 100 % Cream 1 applic topical PRN PRN (Reason: Dryness) Qty: 7 0RF spironolactone 25 mg Tablet 50 mg PO BID@0500,1700 Qty: 60 0RF levothyroxine 75 mcg Tablet 75 mcg PO QAM Qty: 30 0RF cetirizine 10 mg Tablet 10 mg PO DAILY Qty: 30 0RF potassium chloride [Klor-Con M20] 20 mEq Tablet,Er Particles/Crystals 40 meq PO BID@0500,1700 Qty: 120 0RF Discharge Orders: Discharge ED (Routine); Ordered 03/02/25 Ordered By: Dionne Gutiérrez Referrals: Estrella Gerard FNP [Primary Care Provider, [facility]] - 4-7 days Discharge Diet: Advance as tolerated Discharge Activity: Resume usual activity Patient Instructions: Hypokalemia (ED), Abdominal Pain (ED) Print Language: Burkinan Coding Level of Care Code ED Windows Administrator for Vera Freeman
[2025-03-02 13:56] LABS: Hematocrit 35.2 % (36-47); Hemoglobin 11.50 g/dL (11.27-16.99); Mean Corpuscular HGB Conc 32.7 g/dL (30-55); Mean Corpuscular Hemoglobin 27.1 pg (27-33); Mean Corpuscular Volume 82.8 fl (85-98); Nucleated Red Blood Cells % 0 %; Platelet Count 136 10^3/cmm (157-399); Red Blood Count 4.25 10^6/uL (3.85-5.65); White Blood Count 5.03 10^3/uL (3.29-11.43)
[2025-03-02] MEDS: morphine 4 mg/mL SDV 1 mL IVP (13:57)
[2025-03-02] MEDS: ondansetron 2 mg/ML SDV 2 mL 4 MG IVP (13:58)
[2025-03-02] MEDS: iohexol 350 mg/mL 500 mL Btl (per mL) IV (14:13)
[2025-03-02 14:20] LABS: Alanine Aminotransferase 18 U/L (0-33); Albumin Level 2.8 g/dL (3.5-5.2); Alkaline Phosphatase 119 U/L (35-105); Anion Gap 10.6 (5-19); Aspartate Amino Transferase 36 U/L (0-32); Blood Urea Nitrogen 15 mg/dL (6-20); Calcium 8.2 mg/dL (8.5-10.5); Carbon Dioxide 30 mmol/L (22-29); Chloride 99 mmol/L (98-107); Globulin 3.1 g/dL (1.3-4.6); Glucose 105 mg/dL (65-115); Lipase 37 U/L (13-60); Osmolality Calculated 285 mOsm/kg (285-295); Sodium 137 mmol/L (136-145); Total Protein 5.9 g/dL (6.6-8.7)
[2025-03-02 14:22] LABS: Potassium 2.6 mmol/L (3.5-5.1)
[2025-03-02 15:21] LABS: Magnesium 2.0 mg/dL (1.7-2.3)
[2025-03-02 15:23] LABS: Glucose Urine UA Negative (Normal); Nitrate Urine Negative (Negative); Specific Gravity, Urine 1.019 (1.005-1.030)
[2025-03-02 15:28] LABS: Add Urine Microscopic? YES
== END 2025-03-02 16:16 | disposition home or self-care (01) ==
PROVIDERS: Emergency Provider Emergency Medicine; PCP Nurse Practitioner Family
DX: R10.9 Unspecified abdominal pain (principal); E87.6 Hypokalemia
CPT/HCPCS: 36415; 74177; 80053; 81001; 83690; 83735; 85025; 96374; 96375; 99285; J2270; J2405; J7030; J9999

== ENCOUNTER 2025-03-06 10:12 | Day surgery (SDC) | payer BC, MEDICAID, SELFPAY ==
[2024-05-17 15:33] VITALS: BP 150/84; BMI 31.3
[2025-02-13 09:11] VITALS: BP 150/84; BMI 31.3
[2025-03-06 10:33] VITALS: BP 134/69; PULSE 72; RESP 18; TEMP 36.7; O2SAT 100; BMI 32.9
--- NOTE | 2025-03-06 11:28 | US_ITS ---
WS: [id number] ULTRASOUND-GUIDED THERAPEUTIC AND DIAGNOSTIC PARACENTESIS Procedure, risks, and complications have been explained to the patient. Consent is obtained. Utilizing aseptic technique and 1% buffered lidocaine, a small dermatome was made through which a 5 Burmese Yueh catheter was inserted. Approximately 5250 ml of clear peritoneal fluid was obtained without difficulty. No complications encountered. US/US paracentesis abd w [id number] IMPRESSION: Uncomplicated paracentesis yielding 5250 ml of peritoneal fluid.
[2025-03-06 12:18] LABS: Cyto Order Verification No Order
[2025-03-06 12:23] LABS: Mononuclear #, Pertinoneal Fl 0.062 10^3/uL; Mononuclear %, Pertinoneal Fl 86.100 %; Polynuclear # Cells, Perit 0.010 10^3/uL; Polynuclear % Cells,Perit 13.900 %; RBC Pertioneal Fluid 0 10^3/uL; WBC Peritoneal Fluid 72 /uL
[2025-03-06 13:06] LABS: Appearance, Peritoneal Fluid Hazy (Clear); Color, Peritoneal Fluid Yellow (Pale Yellow); Pathology Referral Yes
== END 2025-03-06 12:50 | disposition home or self-care (01) ==
LOC: GILAB 10:13
PROVIDERS: Radiology Diagnostic Radiology; PCP Nurse Practitioner Family; Visit Provider Internal Medicine Gastroenterology
PROC: (CPT 49082; principal; 2025-03-06 12:00)
DX: R18.8 Other ascites (principal)
CPT/HCPCS: 49083; 80503; 87070; 87075; 87205; 89050

== ENCOUNTER → 2025-03-07 14:44 | Outpatient (BNVA) | payer BC, MEDICAID, SELFPAY ==
[2025-02-13 09:11] VITALS: BP 150/84; BMI 31.3
== END ==
PROVIDERS: PCP Nurse Practitioner Family; Referring Provider Nurse Practitioner Family; Visit Provider Internal Medicine Cardiovascular Disease
DX: I51.7 Cardiomegaly (principal); I50.89 Other heart failure; K72.10 Chronic hepatic failure without coma; R18.8 Other ascites; F43.12 Post-traumatic stress disorder, chronic; D69.6 Thrombocytopenia, unspecified; F15.10 Other stimulant abuse, uncomplicated; R06.02 Shortness of breath; R06.09 Other forms of dyspnea
CPT/HCPCS: 36415; 80048; 83880; 99204

== ENCOUNTER → 2025-03-08 10:40 | Outpatient (BNVA) | payer MEDICAID, BC, SELFPAY ==
[2025-02-13 09:11] VITALS: BP 150/84; BMI 31.3
== END ==
PROVIDERS: PCP Nurse Practitioner Family; Visit Provider Nurse Practitioner Family
DX: N39.0 Urinary tract infection, site not specified (principal); E03.9 Hypothyroidism, unspecified; R35.0 Frequency of micturition
CPT/HCPCS: 81000; 84439; 84443; 87086

== ENCOUNTER 2025-03-13 11:29 | Day surgery (SDC) | payer BC, MEDICAID, SELFPAY ==
[2024-05-17 15:33] VITALS: BP 150/84; BMI 31.3
[2025-02-13 09:11] VITALS: BP 150/84; BMI 31.3
--- NOTE | 2025-03-13 11:31 | US_ITS ---
WS: [id number] ULTRASOUND-GUIDED PARACENTESIS CLINICAL INFORMATION: ascites COMPARISON: None. Procedure Informed consent: The risks, benefits, and alternatives of the procedure were discussed with the patient. Verbal and written consent was obtained. Timeout: A timeout was performed to confirm the correct patient, procedure, and site. Preparation: A suitable skin site was identified. The patient was prepped and draped in usual sterile fashion. Lidocaine 1% was used for local anesthesia. Catheter: 4 Irish One-step Yueh catheter. Side: LEFT lower quadrant. Fluid Volume: 6500 ml Color: Clear yellow DISPOSITION: Discarded safely. Complications: None. Patient disposition: Discharged from the department in stable condition. US/US paracentesis abd w [id number] IMPRESSION: Uncomplicated ultrasound-guided paracentesis. Removal of 6500 cc
[2025-03-13 11:46] VITALS: BP 142/70; PULSE 73; RESP 18; TEMP 36.8; O2SAT 94
[2025-03-13 12:44] LABS: Cyto Order Verification No Order
[2025-03-13 12:51] LABS: Body Fluid Polynuclear #Cells 0.009; Monocytes # Body Fluid 0.057; Polynuclear WBC Body Fluid % 13.700 %
[2025-03-13] MEDS: albumin 50 G/200 ML BAG 60 G IV (13:11)
[2025-03-13 13:28] LABS: Apprearance, Body Fluid CLEAR; Color, Body Fluid YELLOW
[2025-03-13 13:30] LABS: Fluid Laterality ASCITES; PATH Referral YES
== END 2025-03-13 13:33 | disposition home or self-care (01) ==
LOC: GILAB 11:29
PROVIDERS: Radiology Neuroradiology; PCP Nurse Practitioner Family; Visit Provider Internal Medicine Gastroenterology
PROC: (CPT 49082; principal; 2025-03-13 12:00)
DX: R18.8 Other ascites (principal)
CPT/HCPCS: 49083; 80503; 87070; 87075; 87205; 89050; 96365; P9046

== ENCOUNTER → 2025-03-20 11:08 | Day surgery (SDC) | payer BC, MEDICAID, SELFPAY ==
[2024-05-17 15:33] VITALS: BP 150/84; BMI 31.3
[2025-02-13 09:11] VITALS: BP 150/84; BMI 31.3
[2025-03-20 11:25] VITALS: BP 105/72; PULSE 76; RESP 18; TEMP 36.6; O2SAT 99; BMI 33.9
--- NOTE | 2025-03-20 11:31 | US_ITS ---
WS: [id number] ULTRASOUND-GUIDED THERAPEUTIC AND DIAGNOSTIC PARACENTESIS Procedure, risks, and complications have been explained to the patient. Consent is obtained. Utilizing aseptic technique and 1% buffered lidocaine, a small dermatome was made through which a 5 [place] Yueh catheter was inserted. Approximately 6300 ml of clear peritoneal fluid was obtained without difficulty. No complications encountered. US/US paracentesis abd w [id number] IMPRESSION: Uncomplicated paracentesis yielding 6300 ml of peritoneal fluid.
[2025-03-20 12:49] LABS: Mononuclear #, Pertinoneal Fl 0.049 10^3/uL; Mononuclear %, Pertinoneal Fl 87.500 %; Polynuclear # Cells, Perit 0.007 10^3/uL; Polynuclear % Cells,Perit 12.500 %; RBC Pertioneal Fluid 0 10^3/uL; WBC Peritoneal Fluid 56 /uL
[2025-03-20 12:50] LABS: Appearance, Peritoneal Fluid Clear (Clear); Color, Peritoneal Fluid Yellow (Pale Yellow); Cyto Order Verification No Order
== END ==
LOC: GILAB 11:09
PROVIDERS: Radiology Diagnostic Radiology; PCP Nurse Practitioner Family; Visit Provider Internal Medicine Gastroenterology
PROC: (CPT 49082; principal; 2025-03-20 12:00)
DX: K74.69 Other cirrhosis of liver (principal)
CPT/HCPCS: 49083; 87070; 87075; 87205; 89050

== ENCOUNTER → 2025-03-26 15:05 | Outpatient (BNVA) | payer BC, MEDICAID, SELFPAY ==
[2025-03-21 10:04] VITALS: BP 150/84; BMI 31.3
== END ==
PROVIDERS: PCP Nurse Practitioner Family; Visit Provider Nurse Practitioner Family
DX: N39.0 Urinary tract infection, site not specified (principal)
CPT/HCPCS: 81000

== ENCOUNTER 2025-03-27 07:15 | Outpatient (CLI) | payer BC, MEDICAID, SELFPAY ==
[2025-03-21 10:04] VITALS: BP 150/84; BMI 31.3
--- NOTE | 2025-03-27 07:45 | USCV_ITS ---
Sandy Ernandez Age: 59 Gender: F : 1965 Exam Date: 03/27/2025 07:41 Ordering Phys: Suzanne Rico MD ([email or web address]) Technologist: Exam Location: [facility] [place] Indication: ? per eff BP: 130 / 70 HR: 68 Rhythm: Sinus Technical Quality: Adequate MEASUREMENTS (Male / Female) Normal Values 2D ECHO LV Diastolic Diameter PLAX 3.5 cm 4.2 - 5.9 / 3.9 - 5.3 cm IVS Diastolic Thickness 0.9 cm 0.6 - 1.0 / 0.6 - 0.9 cm IVS Systolic Thickness 1.3 cm LVPW Diastolic Thickness 1.3 cm 0.6 - 1.0 / 0.6 - 0.9 cm LVPW Systolic Thickness 1.5 cm LV Ejection Fraction 2D Teich 68.5 % LV Ejection Fraction MOD 4C 72.1 % LV Ejection Fraction MOD 2C 69.9 % LV Ejection Fraction 2C AL 70.3 % RA Systolic Volume 4C AL 30.2 ml RA Systolic Volume 4C MOD 27.8 ml LA Sys Volume AL 71.5 cm cubed LA Sys Volume Index AL 34.3 cm cubed/m squared IVC Diameter 1.7 cm M-MODE LA Ao Ratio MM 1.3 AV Cusp Separation MM 1.7 cm DOPPLER AV Peak Velocity 169.0 cm/s LVOT Peak Velocity 124.0 cm/s MV Area PHT 4.1 cm squared Mitral E to A Ratio 1.6 TV Peak Velocity 202.5 cm/s TR Peak Velocity 255.0 cm/s TR Peak Gradient 26.0 mmHg TV Peak E Velocity 119.0 cm/s PV Peak Velocity 141.0 cm/s FINDINGS Left Ventricle Normal left ventricular size and systolic function, EF 68%. Grade III/IV diastolic dysfunction (restrictive filling pattern), severely elevated filling pressures. Right Ventricle Normal right ventricular size and systolic function. Right Atrium Normal right atrial size. Left Atrium Mildly increased left atrial size. IA Septum Normal appearance of the interatrial septum. Mitral Valve No gross abnormalities noted Aortic Valve Minimally thickened Tricuspid Valve Trace tricuspid valve regurgitation. Pulmonic Valve No gross abnormalities no Pericardium No pericardial effusion. Aorta Normal aortic annulus size. IVC Inferior vena cava not visualized. CONCLUSIONS Normal left ventricular size and systolic function, EF 68%. Grade III/IV diastolic dysfunction (restrictive filling pattern), severely elevated filling pressures. No gross wall motion abnormalities Mildly increased left atrial size. Minimally thickened aortic valve Trace tricuspid valve regurgitation. Estimated pulmonary artery peak systolic pressure 29 mmHg There is no pericardial effusion. There are no intracardiac masses. No similar previous studies are available for comparison Dr Suzanne Rico MD [facility] (Electronically Signed) Final Date: 02 April 2025 19:39 S
== END 2025-03-27 07:16 | disposition home or self-care (01) ==
PROVIDERS: PCP Nurse Practitioner Family; Visit Provider Internal Medicine Cardiovascular Disease
DX: R06.09 Other forms of dyspnea (principal); I51.89 Other ill-defined heart diseases; I51.7 Cardiomegaly; I36.1 Nonrheumatic tricuspid (valve) insufficiency; I35.8 Other nonrheumatic aortic valve disorders
CPT/HCPCS: 93306

== ENCOUNTER → 2025-03-27 08:38 | Day surgery (SDC) | payer BC, MEDICAID, SELFPAY ==
[2024-05-17 15:33] VITALS: BP 150/84; BMI 31.3
[2025-03-21 10:04] VITALS: BP 150/84; BMI 31.3
--- NOTE | 2025-03-27 11:39 | US_ITS ---
WS: [id number] ULTRASOUND-GUIDED PARACENTESIS CLINICAL INFORMATION: decompensated HCV cirrhosis COMPARISON: None. Procedure Informed consent: The risks, benefits, and alternatives of the procedure were discussed with the patient. Verbal and written consent was obtained. Timeout: A timeout was performed to confirm the correct patient, procedure, and site. Preparation: A suitable skin site was identified. The patient was prepped and draped in usual sterile fashion. Lidocaine 1% was used for local anesthesia. Catheter: 4 Gambian One-step Cloudkickeh catheter. Side: LEFT lower quadrant. Fluid Volume: 5425 ml Color: Clear yellow DISPOSITION: Discarded safely. Complications: None. Patient disposition: Discharged from the department in stable condition. US/US paracentesis abd w [id number] IMPRESSION: Uncomplicated ultrasound-guided paracentesis. Removal of 5425 cc
[2025-03-27 11:58] VITALS: BP 116/56; PULSE 66; RESP 18; TEMP 37.3; O2SAT 97; BMI 33.4
[2025-03-27 12:47] LABS: Hematocrit 32.4 % (36-47); Hemoglobin 10.40 g/dL (11.27-16.99); Mean Corpuscular HGB Conc 32.1 g/dL (30-55); Mean Corpuscular Hemoglobin 27.9 pg (27-33); Mean Corpuscular Volume 86.9 fl (85-98); Nucleated Red Blood Cells % 0 %; Platelet Count 106 10^3/cmm (157-399); Red Blood Count 3.73 10^6/uL (3.85-5.65); White Blood Count 3.77 10^3/uL (3.29-11.43)
[2025-03-27 12:53] LABS: Mononuclear #, Pertinoneal Fl 0.048 10^3/uL; Mononuclear %, Pertinoneal Fl 81.400 %; Polynuclear # Cells, Perit 0.011 10^3/uL; Polynuclear % Cells,Perit 18.600 %; RBC Pertioneal Fluid 0 10^3/uL; WBC Peritoneal Fluid 59 /uL
[2025-03-27 13:11] LABS: INR 1.05 (0.8-1.2); Prothrombin Time 14.50 SECONDS (12.1-14.9)
[2025-03-27 13:12] LABS: Alanine Aminotransferase 14 U/L (0-33); Albumin Level 2.5 g/dL (3.5-5.2); Alkaline Phosphatase 116 U/L (35-105); Anion Gap 9.7 (5-19); Aspartate Amino Transferase 32 U/L (0-32); Blood Urea Nitrogen 16 mg/dL (6-20); Calcium 8.1 mg/dL (8.5-10.5); Carbon Dioxide 30 mmol/L (22-29); Chloride 100 mmol/L (98-107); Globulin 2.9 g/dL (1.3-4.6); Glucose 99 mg/dL (65-115); Osmolality Calculated 285 mOsm/kg (285-295); Sodium 137 mmol/L (136-145); Total Protein 5.4 g/dL (6.6-8.7)
[2025-03-27 13:17] LABS: Color, Peritoneal Fluid Pale Yellow (Pale Yellow); Cyto Order Verification No Order
[2025-03-27 13:18] LABS: Appearance, Peritoneal Fluid Hazy (Clear)
[2025-03-27 13:25] LABS: Potassium 2.7 mmol/L (3.5-5.1)
--- NOTE | 2025-03-27 14:18 | PC.NURSE ---
Notified by PCP office- Dr. Delgado attempted to call pt. No answer. Pt has potassium prescription at the pharmacy, pt instructed to pick medication up and take potassium as prescibed. Pt takes potassium daily & did not take it today. Pt verbalized understanding.
== END ==
LOC: GILAB 08:38
PROVIDERS: Radiology Neuroradiology; PCP Nurse Practitioner Family; Visit Provider Internal Medicine Gastroenterology
PROC: (CPT 49082; principal; 2025-03-27 12:00)
DX: K74.60 Unspecified cirrhosis of liver (principal)
CPT/HCPCS: 36415; 49083; 80053; 80503; 85025; 85610; 87075; 89050; P9046

== ENCOUNTER → 2025-04-03 10:49 | Day surgery (SDC) | payer BC, MEDICAID, SELFPAY ==
[2024-05-17 15:33] VITALS: BP 150/84; BMI 31.3
[2025-03-21 10:04] VITALS: BP 150/84; BMI 31.3
[2025-04-03 11:18] VITALS: BP 131/74; PULSE 63; RESP 18; TEMP 36.7; O2SAT 98; BMI 34.1
--- NOTE | 2025-04-03 11:35 | US_ITS ---
WS: [id number] ULTRASOUND-GUIDED THERAPEUTIC PARACENTESIS Procedure, risks, and complications have been explained to the patient. Consent is obtained. Utilizing aseptic technique and 1% buffered lidocaine, a small dermatome was made through which a 5 East Timorese Yueh catheter was inserted. Approximately 6500 ml of clear peritoneal fluid was obtained without difficulty. No complications encountered. US/US paracentesis abd w [id number] IMPRESSION: Uncomplicated paracentesis yielding 6500 ml of peritoneal fluid.
[2025-04-03 12:49] LABS: Mononuclear #, Pertinoneal Fl 0.048 10^3/uL; Mononuclear %, Pertinoneal Fl 88.900 %; Polynuclear # Cells, Perit 0.006 10^3/uL; Polynuclear % Cells,Perit 11.100 %; RBC Pertioneal Fluid 0 10^3/uL; WBC Peritoneal Fluid 54 /uL
[2025-04-03 13:17] LABS: Appearance, Peritoneal Fluid Clear (Clear); Color, Peritoneal Fluid Yellow (Pale Yellow); Cyto Order Verification No Order
== END ==
LOC: GILAB 10:49
PROVIDERS: Radiology Diagnostic Radiology; PCP Nurse Practitioner Family; Visit Provider Internal Medicine Gastroenterology
PROC: (CPT 49082; principal; 2025-04-03 12:00)
DX: K74.69 Other cirrhosis of liver (principal)
CPT/HCPCS: 49083; 80503; 87070; 87075; 87205; 89050